=== PATIENT | male | born 1965 | race Caucasian/White ===

== ENCOUNTER → 2016-10-30 | Outpatient (CLI) | payer OTHER ==
[2016-10-30 19:21] LABS: ANION GAP 8 MEQ/L (8-16); BLOOD UREA NITROGEN 14 MG/DL (7-18); CALCIUM LEVEL 9.2 MG/DL (8.5-10.1); CARBON DIOXIDE LEVEL 30 MEQ/L (21-32); CHLORIDE LEVEL 105 MEQ/L (98-107); CHOLESTEROL LEVEL 131 MG/DL (<200); CREATININE FOR GFR 0.92 MG/DL (0.70-1.30); GLOMERULAR FILTRATION RATE > 60.0 (>60); GLUCOSE, FASTING 80 MG/DL (70-105); POTASSIUM SERUM 4.4 MEQ/L (3.5-5.1); SODIUM LEVEL 143 MEQ/L (136-145); TRIGLYCERIDES LEVEL 55 MG/DL (<150)
[2016-10-30 19:34] LABS: VITAMIN B12 LEVEL 1040 PG/ML (247-911)
== END ==
LOC: M WUC 10:53
PROVIDERS: ATTEND Nurse Practitioner Family
DX: E78.00 Pure hypercholesterolemia, unspecified (principal); E55.9 Vitamin D deficiency, unspecified

== ENCOUNTER → 2017-02-27 | Outpatient (CLI) | payer OTHER ==
--- NOTE | 2017-02-27 09:40 | REP ---
CHEST X-RAY: Two views. HISTORY: Asthma. COMPARISON STUDY: January 02, 2016. FINDINGS: The lungs are symmetrically aerated and free of infiltrate. Pleural angles are sharp. Heart size is normal. Pulmonary vasculature is not increased. There has been some interval bony erosion of the distal clavicle on the right with resultant widening of the apparent AC joint. This is compatible with post-traumatic osteolysis. No other significant bony finding. IMPRESSION: No active cardiopulmonary disease. 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 Signed by Saul Faust MD 02/27/2017 01:18 P
--- NOTE | 2017-02-28 13:51 | ECGEPIP ---
Stationary ECG Study [facility] Test Date: 2017-02-27 Pat Name: CARLITOS WELCH Department: Room: - Gender: M Bordereau Clerk: SUE : 1965 Requested By: Emperatriz MARITNEZP Order Number: [id number] Reading MD: Art Valero Measurements Intervals Driggs Rate: 53 P: 0 ND: 184 QRS: -5 QRSD: 131 T: 29 QT: 405 QTc: 384 Interpretive Statements SINUS BRADYCARDIA INTRAVENTRICULAR CONDUCTION DELAY Comparison tracing not on file Electronically Signed On 02-28-2017 13:51:25 EDT by Art Valero
== END ==
LOC: M LAB 08:18
PROVIDERS: ATTEND Nurse Practitioner Family
DX: J45.909 Unspecified asthma, uncomplicated (principal); I21.3 ST elevation (STEMI) myocardial infarction of unspecified site; E55.9 Vitamin D deficiency, unspecified

== ENCOUNTER → 2017-03-30 | Outpatient (CLI) | payer OTHER ==
[~2017-03-30] VITALS: Ht 180.3 cm; Wt 87.1 kg
[~2017-03-30] MED LIST: ALBU17IN INH; ASPI1TAB15 PO; BREO1INH3 INH; INSUH10VL SC; LIDOCAINE 2% INJ 100 MG/5 ML SDV (FOR ANES.) As Ordered ONE; LISI2.5T3 PO; METO-346 PO; NS 1,000 ML IV ONE; OMEP40CA2 PO; PROPOFOL 200 MG/20 ML VIAL As Ordered ONE; SIMV40TA2 PO; VITA1CAP40 PO
--- NOTE | 2017-03-30 09:04 | ROOR ---
Patient Name: Clayton Santizo Procedure Date: 03/30/2017 8:52 AM Date of : 1965 Age: 52 Room: [facility] Gender: Male Note Status: Finalized Procedure: Upper GI endoscopy + Biopsies Indications: Heartburn, Exclusion of Samson's esophagus Providers: Javon Dixon MD Referring MD: Emperatriz COBURN NP Requesting Provider: Medicines: Monitored Anesthesia Care Complications: No immediate complications. Procedure: Pre-Anesthesia Assessment: - The heart rate, respiratory rate, oxygen saturations, blood pressure, adequacy of pulmonary ventilation, and response to care were monitored throughout the procedure. The Endoscope was introduced through the mouth, and advanced to the second part of duodenum. The upper GI endoscopy was accomplished without difficulty. The patient tolerated the procedure well. Findings: The Z-line was irregular and was found 40 cm from the incisors. Multiple biopsies were obtained with cold forceps for evaluation to rule out Samson's Esophagus randomly at the gastroesophageal junction. No other significant abnormalities were identified in a careful examination of the stomach. The exam of the duodenum was otherwise normal. Impression: - Z-line irregular, 40 cm from the incisors. - Multiple biopsies were obtained at the gastroesophageal junction. Recommendation: - Patient has a contact number available for emergencies. The signs and symptoms of potential delayed complications were discussed with the patient. Return to normal activities tomorrow. Written discharge instructions were provided to the patient. - Discharge patient to home. - Follow an antireflux regimen. - Continue present medications. - Await pathology results. - Telephone GI clinic for pathology results in 1 week. - Return to referring physician. - Check Portal Online for Path Results.([email or web address] - The findings and recommendations were discussed with the patient's family. Javon Dixon MD Javon Dixon MD 03/30/2017 9:04:16 AM This report has been signed electronically. Number of Addenda: 0 Note Initiated On: 03/30/2017 8:52 AM Estimated Blood Loss: Estimated blood loss: none.
--- NOTE | 2017-03-30 09:23 | ROOR ---
Patient Name: Clayton Santizo Procedure Date: 03/30/2017 8:53 AM Date of : 1965 Age: 52 Room: [facility] Gender: Male Note Status: Finalized Procedure: Total Colonoscopy to Cecum Indications: Screening for colorectal malignant neoplasm, Last colonoscopy 10 years ago Providers: Javon Dixon MD Referring MD: Emperatriz COBURN NP Requesting Provider: Medicines: Monitored Anesthesia Care Complications: No immediate complications. Procedure: Pre-Anesthesia Assessment: - The heart rate, respiratory rate, oxygen saturations, blood pressure, adequacy of pulmonary ventilation, and response to care were monitored throughout the procedure. The Colonoscope was introduced through the anus and advanced to the cecum, identified by appendiceal orifice and ileocecal valve. The colonoscopy was performed without difficulty. The patient tolerated the procedure well. The quality of the bowel preparation was fair. Findings: The perianal and digital rectal examinations were normal. Non-bleeding internal hemorrhoids were found during retroflexion. The hemorrhoids were small and Grade I (internal hemorrhoids that do not prolapse). No other significant abnormalities were identified in a careful examination of the remainder of the colon. The exam was otherwise without abnormality on direct and retroflexion views. Impression: - Preparation of the colon was fair. - Non-bleeding internal hemorrhoids. - The examination was otherwise normal on direct and retroflexion views. - No specimens collected. - The exam was otherwise normal to the cecum. Recommendation: - Patient has a contact number available for emergencies. The signs and symptoms of potential delayed complications were discussed with the patient. Return to normal activities tomorrow. Written discharge instructions were provided to the patient. - High fiber diet. - Discharge patient to home. - Continue present medications. - Repeat colonoscopy in 10 years for screening purposes. - Return to referring physician. - The findings and recommendations were discussed with the patient's family. Javon Dixon MD Javon Dixon MD 03/30/2017 9:22:33 AM This report has been signed electronically. Number of Addenda: 0 Note Initiated On: 03/30/2017 8:53 AM Estimated Blood Loss: Estimated blood loss: none.
[2017-03-30 09:50] VITALS: BP 104/63
== END | disposition home or self-care (01) ==
LOC: M OPP 07:36
PROVIDERS: ATTEND Internal Medicine Gastroenterology
DX: Z12.11 Encounter for screening for malignant neoplasm of colon (principal); K64.0 First degree hemorrhoids; R12 Heartburn; K22.8 Other specified diseases of esophagus; I10 Essential (primary) hypertension; E78.00 Pure hypercholesterolemia, unspecified; E10.9 Type 1 diabetes mellitus without complications; Z87.891 Personal history of nicotine dependence; Z79.899 Other long term (current) drug therapy; Z79.82 Long term (current) use of aspirin; Z88.0 Allergy status to penicillin

== ENCOUNTER → 2017-09-08 | Outpatient (CLI) | payer OTHER ==
[~2017-09-08] MED LIST changes: -LIDOCAINE 2% INJ 100 MG/5 ML SDV (FOR ANES.) As Ordered ONE; -NS 1,000 ML IV ONE; -PROPOFOL 200 MG/20 ML VIAL As Ordered ONE
[2017-09-08 12:01] LABS: ESTRADIOL 76.3 PG/ML (<39.8)
== END ==
LOC: M LAB 10:47
PROVIDERS: ATTEND Nurse Practitioner Family
DX: E34.9 Endocrine disorder, unspecified (principal)

== ENCOUNTER → 2017-12-07 | Outpatient (CLI) | payer OTHER | LOC: M WUC 08:41 | DX: R06.02 Shortness of breath (principal); M54.9 Dorsalgia, unspecified | CPT/HCPCS: 71046 ==

== ENCOUNTER → 2018-01-21 | Outpatient (CLI) | payer OTHER, MEDICAID ==
[2018-01-21 20:15] LABS: ESTRADIOL 104.9 PG/ML (<39.8)
[2018-01-21 20:15] LABS: TESTOSTERONE 48 NG/DL (241-827)
== END ==
LOC: M WUC 17:06
DX: E34.9 Endocrine disorder, unspecified (principal)
CPT/HCPCS: 84403

== ENCOUNTER → 2018-01-21 | Outpatient (CLI) | payer OTHER, MEDICAID ==
[2018-01-21 08:43] LABS: ALBUMIN 3.5 GM/DL (3.2-5.2); ALBUMIN/GLOBULIN RATIO 1.35 (1.00-1.93); ALKALINE PHOSPHATASE 65 U/L (45-117); ALT/SGPT 28 U/L (12-78); ANION GAP 6 MEQ/L (8-16); AST/SGOT 16 U/L (7-37); BILIRUBIN,TOTAL 0.5 MG/DL (0.2-1.0); BLOOD UREA NITROGEN 15 MG/DL (7-18); CALCIUM LEVEL 8.1 MG/DL (8.5-10.1); CARBON DIOXIDE LEVEL 27 MEQ/L (21-32); CHLORIDE LEVEL 109 MEQ/L (98-107); CREATININE FOR GFR 0.93 MG/DL (0.70-1.30); GLOMERULAR FILTRATION RATE > 60.0 (>56); GLUCOSE, FASTING 228 MG/DL (70-100); POTASSIUM SERUM 4.7 MEQ/L (3.5-5.1); SODIUM LEVEL 142 MEQ/L (136-145); TOTAL PROTEIN 6.1 GM/DL (6.4-8.2)
[2018-01-21 08:44] LABS: MALB URINE SIEMENS 6.3 MG/L; MAU/CREAT RATIO 4.7 MCG/MG (0.0-30.0)
[2018-01-21 09:50] LABS: TOTAL 25(OH) VITAMIN D 21.6 NG/ML (30.0-100.0)
[2018-01-21 10:02] LABS: ESTIMATED AVERAGE GLUCOSE 194 MG/DL (60-110); HEMOGLOBIN A1c 8.4 %
== END ==
LOC: M LAB 07:24
DX: E10.9 Type 1 diabetes mellitus without complications (principal); E23.0 Hypopituitarism; E55.9 Vitamin D deficiency, unspecified
CPT/HCPCS: 84443

== ENCOUNTER → 2018-02-08 | Outpatient (CLI) | payer OTHER, MEDICAID | LOC: M WUC 09:20 | DX: S20.219A Contusion of unspecified front wall of thorax, initial encounter (principal); X58.XXXA Exposure to other specified factors, initial encounter; Y92.89 Other specified places as the place of occurrence of the external cause; Y99.9 Unspecified external cause status; Y93.9 Activity, unspecified | CPT/HCPCS: 71046 ==

== ENCOUNTER → 2018-06-24 | Outpatient (CLI) | payer OTHER, MEDICAID ==
[2018-06-24 11:03] LABS: ESTRADIOL 104.5 PG/ML (<39.8)
[2018-06-24 11:03] LABS: TESTOSTERONE 648 NG/DL (241-827)
== END ==
LOC: M WUC 08:53
DX: E34.9 Endocrine disorder, unspecified (principal)
CPT/HCPCS: 84403

== ENCOUNTER → 2018-08-18 | Outpatient (CLI) | payer OTHER, MEDICAID ==
[2018-08-18 08:59] LABS: CHOLESTEROL LEVEL 141 MG/DL (<200); HDL CHOLESTEROL 60 MG/DL (>40); LDL CHOLESTEROL 68 MG/DL (<100); NON-HDL-C 81 MG/DL; TRIGLYCERIDES LEVEL 65 MG/DL (<150)
== END ==
LOC: M LAB 08:08
DX: E78.00 Pure hypercholesterolemia, unspecified (principal); R78.5 Finding of other psychotropic drug in blood
CPT/HCPCS: 80061

== ENCOUNTER → 2018-11-23 | Outpatient (CLI) | payer OTHER ==
[~2018-11-23] MED LIST changes: -LISI2.5T3 PO; +LISI2.5T5 PO; -VITA1CAP40 PO; +VITA50005 PO
[2018-11-23 19:01] LABS: ESTRADIOL 84.2 PG/ML (<39.8)
== END ==
LOC: M WUC 16:54
PROVIDERS: ATTEND Registered Nurse
DX: Z51.81 Encounter for therapeutic drug level monitoring (principal)

== ENCOUNTER → 2018-11-24 | Outpatient (REF) | payer OTHER | LOC: M LAB REF 17:30 | PROVIDERS: ATTEND Registered Nurse | DX: Z51.81 Encounter for therapeutic drug level monitoring (principal) ==

== ENCOUNTER → 2019-01-12 | Outpatient (REF) | payer OTHER, MEDICAID ==
[~2019-01-12] MED LIST changes: +LISI-1046 PO; -LISI2.5T5 PO
[2019-01-12 17:26] LABS: ALBUMIN 3.8 GM/DL (3.2-5.2); ALT/SGPT 24 U/L (12-78); BILIRUBIN,TOTAL 0.4 MG/DL (0.2-1.0); BLOOD UREA NITROGEN 13 MG/DL (7-18); CALCIUM LEVEL 8.6 MG/DL (8.5-10.1); CARBON DIOXIDE LEVEL 30 MEQ/L (21-32); CHLORIDE LEVEL 105 MEQ/L (98-107); CREATININE FOR GFR 0.94 MG/DL (0.70-1.30); GLOMERULAR FILTRATION RATE > 60.0 (>56); GLUCOSE, FASTING 218 MG/DL (70-100); POTASSIUM SERUM 4.6 MEQ/L (3.5-5.1); SODIUM LEVEL 137 MEQ/L (136-145); TOTAL PROTEIN 6.7 GM/DL (6.4-8.2)
== END ==
LOC: M LAB REF 16:50
PROVIDERS: ATTEND Nurse Practitioner Adult Health
DX: Z13.9 Encounter for screening, unspecified (principal)

== ENCOUNTER → 2019-01-20 | Outpatient (CLI) | payer OTHER, MEDICAID ==
[2019-01-20 13:29] LABS: ALBUMIN 3.7 GM/DL (3.2-5.2); ALT/SGPT 23 U/L (12-78); BILIRUBIN,DIRECT 0.1 MG/DL (0.0-0.2); BILIRUBIN,TOTAL 0.4 MG/DL (0.2-1.0); BLOOD UREA NITROGEN 18 MG/DL (7-18); CALCIUM LEVEL 8.5 MG/DL (8.5-10.1); CARBON DIOXIDE LEVEL 26 MEQ/L (21-32); CHLORIDE LEVEL 108 MEQ/L (98-107); CHOLESTEROL LEVEL 122 MG/DL (<200); CHOLESTEROL RISK RATIO 1.936 (<5); CREATININE FOR GFR 0.95 MG/DL (0.70-1.30); GLOMERULAR FILTRATION RATE > 60.0 (>56); GLUCOSE, FASTING 297 MG/DL (70-100); HDL CHOLESTEROL 63 MG/DL (>40); LDL CHOLESTEROL 47 MG/DL (<100); NON-HDL-C 59 MG/DL; POTASSIUM SERUM 5.1 MEQ/L (3.5-5.1); SODIUM LEVEL 140 MEQ/L (136-145); TOTAL PROTEIN 6.3 GM/DL (6.4-8.2); TRIGLYCERIDES LEVEL 61 MG/DL (<150)
[2019-01-20 13:39] LABS: ESTRADIOL 218.1 PG/ML (<39.8); TESTOSTERONE 284 NG/DL (241-827)
[2019-01-20 14:10] LABS: HEMOGLOBIN A1c 8.8 %
== END ==
LOC: M WUC 08:53
PROVIDERS: ATTEND Nurse Practitioner Adult Health
DX: E34.9 Endocrine disorder, unspecified (principal)

== ENCOUNTER → 2019-05-18 | Outpatient (CLI) | payer OTHER, MEDICAID ==
[2019-05-18 12:51] LABS: HEMATOCRIT 41.3 % (42.0-52.0); HEMOGLOBIN 13.8 g/dl (13.5-17.5); MEAN CORPUSCULAR HEMOGLOBIN 31.6 pg (27.0-33.0); MEAN CORPUSCULAR HGB CONC 33.4 g/dl (32.0-36.5); MEAN CORPUSCULAR VOLUME 94.5 fl (80.0-96.0); PLATELET COUNT, AUTOMATED 215 10^3/uL (150-450); RED BLOOD COUNT 4.37 10^6/uL (4.30-6.10); WHITE BLOOD COUNT 6.5 10^3/uL (4.0-10.0)
[2019-05-18 13:01] LABS: ALBUMIN 3.4 GM/DL (3.2-5.2); ALT/SGPT 21 U/L (12-78); BILIRUBIN,DIRECT 0.2 MG/DL (0.0-0.2); BILIRUBIN,TOTAL 0.4 MG/DL (0.2-1.0); BLOOD UREA NITROGEN 14 MG/DL (7-18); CARBON DIOXIDE LEVEL 29 MEQ/L (21-32); CHLORIDE LEVEL 108 MEQ/L (98-107); CHOLESTEROL LEVEL 130 MG/DL (<200); CHOLESTEROL RISK RATIO 2.166 (<5); CREATININE FOR GFR 0.89 MG/DL (0.70-1.30); GLOMERULAR FILTRATION RATE > 60.0 (>56); GLUCOSE, FASTING 139 MG/DL (70-100); HDL CHOLESTEROL 60 MG/DL (>40); LDL CHOLESTEROL 58 MG/DL (<100); NON-HDL-C 70 MG/DL; POTASSIUM SERUM 4.6 MEQ/L (3.5-5.1); SODIUM LEVEL 141 MEQ/L (136-145); TOTAL PROTEIN 6.2 GM/DL (6.4-8.2); TRIGLYCERIDES LEVEL 62 MG/DL (<150)
[2019-05-18 13:07] LABS: TESTOSTERONE 160 NG/DL (241-827)
[2019-05-18 13:08] LABS: ESTRADIOL 494.1 PG/ML (<39.8); PROLACTIN 9.6 NG/ML (2.1-17.7)
== END ==
LOC: M WUC 08:57
DX: F64.0 Transsexualism (principal); E34.9 Endocrine disorder, unspecified

== ENCOUNTER → 2019-09-19 | Outpatient (CLI) | payer OTHER, MEDICAID ==
[~2019-09-19] MED LIST changes: -OMEP40CA2 PO; +OMEP40CA97 PO; -SIMV40TA2 PO; +SIMV40TA20 PO
[2019-09-19 13:52] LABS: ALBUMIN 3.5 GM/DL (3.2-5.2); ALT/SGPT 20 U/L (12-78); BILIRUBIN,DIRECT 0.2 MG/DL (0.0-0.2); BILIRUBIN,TOTAL 0.7 MG/DL (0.2-1.0); BLOOD UREA NITROGEN 18 MG/DL (7-18); CALCIUM LEVEL 8.9 MG/DL (8.5-10.1); CARBON DIOXIDE LEVEL 30 MEQ/L (21-32); CHLORIDE LEVEL 106 MEQ/L (98-107); CREATININE FOR GFR 0.86 MG/DL (0.70-1.30); GLOMERULAR FILTRATION RATE > 60.0 (>56); GLUCOSE, FASTING 126 MG/DL (70-100); POTASSIUM SERUM 4.7 MEQ/L (3.5-5.1); SODIUM LEVEL 141 MEQ/L (136-145); TOTAL PROTEIN 6.8 GM/DL (6.4-8.2)
[2019-09-19 14:14] LABS: ESTRADIOL 79.8 PG/ML (<39.8)
[2019-09-19 14:30] LABS: TESTOSTERONE 320 NG/DL (241-827)
== END ==
LOC: M WUC 09:13
PROVIDERS: ATTEND Nurse Practitioner Adult Health
DX: E34.9 Endocrine disorder, unspecified (principal); F64.0 Transsexualism

== ENCOUNTER → 2019-11-25 | Outpatient (CLI) | payer OTHER ==
[2019-11-25 08:44] LABS: ALBUMIN 2.9 GM/DL (3.2-5.2); ALT/SGPT 29 U/L (12-78); BILIRUBIN,DIRECT < 0.1 MG/DL (0.0-0.2); BILIRUBIN,TOTAL 0.3 MG/DL (0.2-1.0); TOTAL PROTEIN 5.8 GM/DL (6.4-8.2)
[2019-11-25 09:36] LABS: ESTRADIOL 958.1 PG/ML (<39.8); TESTOSTERONE 218 NG/DL (241-827)
== END ==
LOC: M LAB 07:24
PROVIDERS: ATTEND Nurse Practitioner Adult Health
DX: E34.9 Endocrine disorder, unspecified (principal); F64.0 Transsexualism

== ENCOUNTER → 2020-01-18 | Outpatient (REF) | payer OTHER, MEDICAID ==
[2020-01-18 19:09] LABS: ALBUMIN 3.1 GM/DL (3.2-5.2); ALT/SGPT 32 U/L (12-78); BILIRUBIN,TOTAL 0.4 MG/DL (0.2-1.0); BLOOD UREA NITROGEN 15 MG/DL (7-18); CALCIUM LEVEL 8.9 MG/DL (8.5-10.1); CARBON DIOXIDE LEVEL 25 MEQ/L (21-32); CHLORIDE LEVEL 108 MEQ/L (98-107); CHOLESTEROL LEVEL 110 MG/DL (<200); CHOLESTEROL RISK RATIO 2.156 (<5); CREATININE FOR GFR 0.59 MG/DL (0.70-1.30); GLOMERULAR FILTRATION RATE > 60.0 (>56); GLUCOSE, FASTING 179 MG/DL (70-100); HDL CHOLESTEROL 51 MG/DL (>40); LDL CHOLESTEROL 48 MG/DL (<100); NON-HDL-C 59 MG/DL; POTASSIUM SERUM 4.6 MEQ/L (3.5-5.1); SODIUM LEVEL 137 MEQ/L (136-145); THYROID STIMULATING HORMONE < 0.005 uIU/ML (0.358-3.740); TRIGLYCERIDES LEVEL 53 MG/DL (<150)
== END ==
LOC: M LAB REF 17:08
PROVIDERS: ATTEND Nurse Practitioner Adult Health
DX: E23.0 Hypopituitarism (principal); E10.9 Type 1 diabetes mellitus without complications; E78.5 Hyperlipidemia, unspecified; Z12.5 Encounter for screening for malignant neoplasm of prostate

== ENCOUNTER → 2020-01-28 | Outpatient (CLI) | payer OTHER, MEDICAID ==
[~2020-01-28] MED LIST changes: -LISI-1046 PO; +LISI2.5T2 PO
[2020-01-30 10:55] LABS: ESTRADIOL 1302.2 PG/ML (<39.8)
== END ==
LOC: M WUC 08:33
PROVIDERS: ATTEND Nurse Practitioner Adult Health
DX: E34.9 Endocrine disorder, unspecified (principal); F64.0 Transsexualism

== ENCOUNTER → 2020-01-31 | Outpatient (CLI) | payer OTHER, MEDICAID ==
[~2020-01-31] MED LIST changes: +ADME100I SC; +ASPI-546 PO; -ASPI1TAB15 PO; +METO1TAB32 PO; +SYNT137T7 PO; +VENTAER INH
[2020-01-31 18:35] LABS: FREE T4 2.83 NG/DL (0.76-1.46); THYROID STIMULATING HORMONE < 0.005 uIU/ML (0.358-3.740)
[2020-01-31 18:36] LABS: TOTAL T3 241.6 NG/DL (60.0-181.0)
[2020-02-01 09:38] LABS: THYROID PEROXIDASE ANTIBODY 86.5 U/ML (<60.0)
== END ==
LOC: M LAB 16:53
PROVIDERS: ATTEND Nurse Practitioner Family
DX: E05.00 Thyrotoxicosis with diffuse goiter without thyrotoxic crisis or storm (principal)

== ENCOUNTER → 2020-02-18 | Outpatient (CLI) | payer OTHER, MEDICAID ==
[~2020-02-18] MED LIST changes: -ADME100I SC; -ASPI-546 PO; +ASPI1TAB15 PO; -METO1TAB32 PO; -SYNT137T7 PO; -VENTAER INH
[2020-02-20 10:48] LABS: ESTRADIOL 84.4 PG/ML (<39.8)
== END ==
LOC: M WUC 09:10
PROVIDERS: ATTEND Registered Nurse
DX: F64.0 Transsexualism (principal)

== ENCOUNTER → 2020-03-14 | Outpatient (CLI) | payer OTHER ==
--- NOTE | 2020-03-15 12:40 | REP ---
RADIONUCLIDE THYROID UPTAKE AND SCAN: HISTORY: Thyrotoxicosis. TECHNIQUE: 434.0 microcuries of I 123 sodium iodine is ingested and 24-hour uptake values acquired along with functional images. RESULTS: The 24-hour uptake value is in the normal range of 32.5% (25-35%). Functional images demonstrate homogeneous uptake in the thyroid lobes bilaterally. The thyroid lobes are asymmetric with the right being larger than left. No cold or warm lesion is seen however. IMPRESSION: Asymmetric size thyroid lobes. No cold or warm lesion seen. Thyroid uptake 32.5%. Electronically Signed by Saul Faust MD 03/15/2020 12:58 P
== END ==
LOC: M RAD 10:07
PROVIDERS: ATTEND Nurse Practitioner Family
DX: E05.00 Thyrotoxicosis with diffuse goiter without thyrotoxic crisis or storm (principal)
CPT/HCPCS: 78012; A9516

== ENCOUNTER → 2020-03-19 | Outpatient (CLI) | payer OTHER | LOC: M PLALAB 14:14 | PROVIDERS: ATTEND Internal Medicine Endocrinology, Diabetes & Metabolism | DX: E05.00 Thyrotoxicosis with diffuse goiter without thyrotoxic crisis or storm (principal) ==

== ENCOUNTER → 2020-03-28 | Outpatient (CLI) | payer OTHER ==
[~2020-03-28] MED LIST changes: +ASPI-546 PO; -ASPI1TAB15 PO
[2020-03-30 20:14] LABS: TESTOSTERONE FREE (DIRECT) 3.4 pg/mL (7.2-24.0)
== END ==
LOC: M WUC 14:30
PROVIDERS: ATTEND Registered Nurse
DX: F64.0 Transsexualism (principal)

== ENCOUNTER → 2020-04-10 | Outpatient (CLI) | payer OTHER | LOC: M RAD 13:06 | PROVIDERS: ATTEND Internal Medicine Endocrinology, Diabetes & Metabolism | DX: E05.00 Thyrotoxicosis with diffuse goiter without thyrotoxic crisis or storm (principal) | CPT/HCPCS: 79005; A9517 ==

== ENCOUNTER → 2020-06-05 | Outpatient (CLI) | payer OTHER ==
[2020-06-05 08:59] LABS: FREE T4 0.63 NG/DL (0.76-1.46); THYROID STIMULATING HORMONE 0.011 uIU/ML (0.358-3.740)
== END ==
LOC: M LAB 07:35
PROVIDERS: ATTEND Internal Medicine Endocrinology, Diabetes & Metabolism
DX: E05.00 Thyrotoxicosis with diffuse goiter without thyrotoxic crisis or storm (principal)

== ENCOUNTER → 2020-06-20 | Outpatient (CLI) | payer OTHER ==
[2020-06-20 18:25] LABS: FREE T4 0.31 NG/DL (0.76-1.46)
[2020-06-20 18:27] LABS: PROLACTIN 13.3 NG/ML (2.1-17.7)
== END ==
LOC: M PLALAB 14:38
PROVIDERS: ATTEND Internal Medicine Endocrinology, Diabetes & Metabolism
DX: E05.00 Thyrotoxicosis with diffuse goiter without thyrotoxic crisis or storm (principal); F64.9 Gender identity disorder, unspecified

== ENCOUNTER → 2020-07-19 | Outpatient (CLI) | payer OTHER ==
[2020-07-19 16:08] LABS: BLOOD UREA NITROGEN 15 MG/DL (7-18); CALCIUM LEVEL 9.5 MG/DL (8.5-10.1); CARBON DIOXIDE LEVEL 28 MEQ/L (21-32); CHLORIDE LEVEL 103 MEQ/L (98-107); CREATININE FOR GFR 0.93 MG/DL (0.70-1.30); GLOMERULAR FILTRATION RATE > 60.0 (>56); GLUCOSE, FASTING 119 MG/DL (70-100); POTASSIUM SERUM 4.6 MEQ/L (3.5-5.1); SODIUM LEVEL 137 MEQ/L (136-145)
[2020-07-19 16:19] LABS: ESTRADIOL 120.9 PG/ML (<39.8)
[2020-07-21 18:12] LABS: TESTOSTERONE FREE (DIRECT) 7.5 pg/mL (7.2-24.0)
== END ==
LOC: M WUC 10:29
DX: F64.0 Transsexualism (principal)

== ENCOUNTER → 2020-09-24 | Outpatient (CLI) | payer OTHER ==
[2020-09-24 17:41] LABS: BLOOD UREA NITROGEN 17 MG/DL (7-18); CALCIUM LEVEL 8.6 MG/DL (8.5-10.1); CARBON DIOXIDE LEVEL 28 MEQ/L (21-32); CHLORIDE LEVEL 104 MEQ/L (98-107); CREATININE FOR GFR 0.96 MG/DL (0.70-1.30); FREE T4 1.26 NG/DL (0.76-1.46); GLOMERULAR FILTRATION RATE > 60.0 (>56); GLUCOSE, FASTING 246 MG/DL (70-100); POTASSIUM SERUM 4.3 MEQ/L (3.5-5.1); SODIUM LEVEL 137 MEQ/L (136-145)
[2020-09-24 17:42] LABS: FOLLICLE STIMULATING HORMONE 0.8 mIU/mL (1.4-18.1); LUTEINIZING HORMONE 0.1 mIU/mL (1.5-9.3); TESTOSTERONE 15 NG/DL (241-827)
== END ==
LOC: M PLALAB 14:39
PROVIDERS: ATTEND Internal Medicine Endocrinology, Diabetes & Metabolism
DX: E10.65 Type 1 diabetes mellitus with hyperglycemia (principal); F64.9 Gender identity disorder, unspecified

== ENCOUNTER → 2020-10-31 | Outpatient (CLI) | payer OTHER ==
[~2020-10-31] MED LIST changes: +ADME100I SC; +METO1TAB32 PO; +SYNT137T7 PO; +VENTAER INH
== END ==
LOC: M LABSMTC 12:13
PROVIDERS: ATTEND Anesthesiology
DX: Z20.828 Contact with and (suspected) exposure to other viral communicable diseases (principal)

== ENCOUNTER 2020-11-05 07:58 | Day surgery (SDC) | payer OTHER ==
[~2020-11-05] VITALS: Ht 180.3 cm; Wt 98.9 kg
[~2020-11-05 07:58] MED LIST changes: +NS 1,000 ML IV ONE
--- OUTSIDE RECORDS SUMMARY | 2020-11-05 08:03 | CCD | Continuity of Care Document ---
Author Author [facility] Organization [facility] Address Unknown Phone Unavailable Care Team Providers Care [facility] Director Name Role Phone Angelic Yost MD Unavailable Unavailable Allergies, Adverse Reactions, Alerts Substance Reaction Status Criticality Penicillins Active No Information Medications Medication Instructions Dosage Effective Dates (start - stop) Sta tus Comments estradiol 2 mg tablet take 0.5 tablet by oral route every day - Active Lupron Depot 3.75 mg intramuscular syringe kit inject (3.75MG) by intramuscular route every month 3.75 MG - Active Tirosint 137 mcg capsule take 1 capsule by oral route every day 13 7 MCG - Active Aspirin Low Dose 81 mg tablet,delayed release take 1 t ablet by oral route every day 81 MG - Active lisinopril 10 mg tablet take 1 tablet by oral route every day 10 MG - Active metoprolol succinate ER 25 mg tablet,extended release 24 hr take 1 tablet by oral route every day 25 MG - Active Novolog Mix 70-30 U-100 Insulin 100 unit/mL subcutaneo us solution inject by subcutaneous route as per insulin protocol 0.00 - Activ e omeprazole 10 mg capsule,delayed release take 2 capsul e by oral route every day before a meal 20 MG - Active simvastatin 10 mg tablet take 1 tablet by oral route every day in the evening 10 MG - Active Ventolin HFA 90 mcg/actuation aerosol inhaler inhale 2 puff by inhalation route every 4 - 6 hours as needed - Active Problems Condition Effective Dates (start - stop) Clinical Status C omments Body mass index (BMI) 29.0-29.9, adult - Body mass index (BMI) 29.0-29.9, adult - Gender identity disorder, unspecified Gender Identity Disorder - Gender Identity Disorder Human immunodeficiency virus [HIV] counseling Encounter for oth general cnsl and advice on contraception Gender Identity Disorder Encounter for oth general cnsl and advice on contraception Gender Identity Disorder [place] Endocrine disorder, unspecified Transsexualism Encounter for oth general cnsl and advice on contraception Human immunodeficiency virus [HIV] counseling Human immunodeficiency virus [HIV] counseling Endocrine disorder, unspecified Transsexualism Encounter for oth general cnsl and advice on contraception Human immunodeficiency virus [HIV] counseling Endocrine disorder, unspecified Transsexualism Encounter for oth general cnsl and advice on contraception Human immunodeficiency virus [HIV] counseling Endocrine disorder, unspecified Transsexualism Encounter for oth general cnsl and advice on contraception Endocrine disorder, unspecified Transsexualism Endocrine disorder, unspecified Transsexualism Other sex counseling Hyperlipidemia - Active Disorder of thyroid gland - Active Type 2 diabetes mellitus - Active Procedures Procedure Date No Information Results Test Name Date and Time Measure Units Reference Range Abnormal Flag St atus Comments No Information Advance Directives Directive Yes / No Effective Date File Name No Information Encounters Encounter Description Practice Location Reason(s) For Visit Diagnose s Date Provider Providers Copied on Encounter [facility], [address] [place] [address], [id number], tel:[phone] TANI [place] No Information Doreen Atwood. [address] [place] [address], [id number], . tel:[phone] [facility] [place], [address] [place] [address], [id number], [place] tel:[phone] TANI [place] Gender identity dis order, unspecified Prudence Kendall. [address] [place] [address], [id number], . tel:[phone] Referring Provider: Faiza Foss, [address] [place], [place], [id number]. tel:[phone] [facility], [address], [place], [id number], [place] tel:[phone] TANI [place]im[place] Gender Identity Disorder O Prudence Kendall. [address] [place], [place], [id number], [place]. tel:[phone] Referring Provider: Faiza Foss, [address] [place], [place], [id number]. tel:[phone] [facility] [place], [address], [place], [id number], [place] tel:[phone] TANI [place] Gender Identity Dis orderHuman immunodeficiency virus [HIV] counselingEncounter for oth general cnsl and advice on contraception Anna Asher. [address], [place], [id number], [place]. tel:[phone] Referring Provider: Lakeshia Castillo, [address] [place] [address], [id number]. tel:[phone] [facility] [place], [address], [place], [id number], [place] tel:[phone] TANI [place] Gender Identity Dis orderEncounter for oth general cnsl and advice on contraception Anna march. [address], [place], [id number], [place]. tel:[phone] Referring Provider: Lakeshia Castillo, [address], [place], [id number]. tel:[phone] [facility] [place], [address], [place], [id number], [place] tel:[phone] TANI [place] Gender Identity Disorder [place] Anna Asher. [address] [facility], [place], [id number], [place]. tel:[phone] Referring Provider: Lakeshia Castillo, [address] [place], [place], [id number]. tel:[phone] [facility] [place], [address] [facility], [place], [place], [id number], [place] tel:[phone] [facility] [place] Endocrine disorder, unspecifiedTranssexualismEncounter for oth general cnsl and advice on contraceptionHuman immunodeficiency virus [HIV] counseling Jeffdm Gee. [address] [place], [place], [id number], [place]. tel:[phone] Referring Provider: Marlen Hoffman, [address] [place] [address], [id number]. tel:[phone] [facility], [address] [place] [address], [id number], [place] tel:[phone] [facility] [place] Human immunodeficie ncy virus [HIV] counselingEndocrine disorder, unspecifiedTranssexualismEncounter for oth general cnsl and advice on contraception Jeffdm Gee. [address] [place], [place], [id number], [place]. tel:[phone] Referring Provider: Marlen Hoffman, [address] [place] [address], [id number]. tel:[phone] [facility], [address] [place] [address], [id number], [place] tel:[phone] [facility] [place] Human immunodeficie ncy virus [HIV] counselingEndocrine disorder, unspecifiedTranssexualismEncounter for oth general cnsl and advice on contraception Jeffdm Gee. [address] [place], [place], [id number], [place]. tel:[phone] Referring Provider: Marlen Hoffman, [address] [place] [address], [id number]. tel:[phone] [facility], [address] [place] [address], [id number], [place] tel:[phone] [facility] [place] Human immunodeficie ncy virus [HIV] counselingEndocrine disorder, unspecifiedTranssexualismEncounter for oth general cnsl and advice on contraception Jeffdm Gee. [address] [place], [place], [id number], . tel:[phone] Referring Provider: Marlen Hoffman, [address] [place] [address], [id number]. tel:[phone] [facility], [address] [place] [address], [id number], tel:[phone] [facility] Endocrine disorder, unspecifiedTranssexualismBody mass index (BMI) 29.0-29.9, adult Jeffdm Gee. [address] [place] [address], [id number], . tel:[phone] Referring Provider: Marlen Mcdonald Vega Hima, [address] [place] [address], [id number]. tel:[phone] [facility], [address] [place] [address], [id number], tel:[phone] [facility] [place] Endocrine disorder, unspecifiedTranssexualismOther sex counselingBody mass index (BMI) 29.0-29.9, adult Jeffdm Gee. [address] [place], [place], [id number], . tel:[phone] Referring Provider: Marlen Hoffman, [address] [place] [address], [address] [place] [address]. tel:[phone] Family History Family Member Diagnosis Age At Onset Mother Spinal 1st degree relative No hx of cancer of breast, colon, endome trium or ovary Maternal grandfather Diabetes mellitus 1st degree relative No hx of coronary heart disease (female <65, male <55) 1st degree relative No hx of venous thromboembolism Immunizations Vaccine Date Status Comments No Information Payers Payer name Insurance type Covered democrat ID Authorization(s ) [facility] CI [id number] Social History Type Description Quantity Date Captured Comments Alcohol Use Details Unknown Caffeine Use Details Unknown Tobacco Use Status No Information Smoking Status Never smoker Sex Male Vital Signs Date / Time: Height Weight BMI Pulse Rate Blood Pressure Temperatu re Respiratory Rate Body Surface Area Head Circumference BMI percentile Pulse Ox In haled Ox No Information Chief Complaint And Reason For Visit No Information Reason For Referral Reason For Referral No Information Plan Of Treatment Date Type Action Status Goal Lifestyle education regarding di et completed Goal Weight-reducing diet education c ompleted Appointment Clayton Santizo) BOOKED History Of Present Illness Encounter Date Complaint History Of Present I llness No Information Functional Status Date Functional Assessment No Information Medications Administered Medication Instructions Dosage Effective Dates (start - stop) Sta tus Comments No Information Instructions Date Instruction Additional Informati on Lifestyle education regarding diet Relat ed to Body mass index (BMI) 29.0-29.9, adult Weight-reducing diet education Related t o Body mass index (BMI) 29.0-29.9, adult Assessments Type Assessment Date No Information Goals Health Concern Goal Type Priority Status Date No Information Medical Equipment Description Device Louann Device Identifier Effective Owen es (start - stop) Status No Information Mental Status Date Cognitive Assessment No Information Health Concerns Observation Date No Information Concern Status Date No Information Physical Examination Exam Findings Details No Information
--- OUTSIDE RECORDS SUMMARY | 2020-11-05 08:03 | CCD | Continuity of Care Document ---
Author Author Clayton TOBAR PA Organization Unknown Address [address] [place] [address] [place] [address] Phone [phone] Care Team Providers Care Bail Bond Agent Name Role Phone [facility] AUTM [phone] [facility] AUTM [phone] Problems Active Problems Provider Date Type 2 diabetes mellitus CAROLINE Daugherty Onset: 11/27/19 18 Social History Type Date Description Comments Sex Unknown ETOH Use Drinks Alcoholic Beverages Rarel y Tobacco Use Start: Unknown End: Unknown Patient is a former smoker quit'15 Smoking Status Reviewed: 10/11/20 Patient is a former smoker qu it'15 Allergies, Adverse Reactions, Alerts Active Allergies Reaction Severity Comments Date Penicillin as a child 11/26/2017 Medications Active Medications SIG Qnty Indications Ordering Provide r Date Novolog Penfill 100U nit/ML Solution Cartridge via pump Unknown Aspir-[address] ever y day Unknown Lisinopril 2.5mg Tablets take one tablet daily in the in the morning Unknown Metoprolol Succinate ER 25mg Tablets ER 24HR Unknown Simvastatin 40mg Tablets qd Unknown Omeprazole 40mg Capsules DR 1 by mouth every day Unknown Levothyroxine Sodium Unknown History Medications Lidocaine 5% Patches 1 patch apply to affected area left chest q12 as needed 30units Edvin Elizabeth JR., M.D. 06/08/2020 - 05/15/2020 Immunizations CPT Code Status Date Vaccine Lot # [id number] Given 11/26/2017 Tdap/Tetanus, Di phth Toxoids/Acellular Pertussis Vac 7Yr Or > [id number] Vital Signs Date Vital Result Comment 10/11/2020 12:06pm BP Systolic 100 mmHg BP Diastolic 64 mmHg Heart Rate 73 /min Respiratory Rate 18 /min O2 % BldC Oximetry 100 % Body Temperature 97.9 F Weight 211.00 lb Height 71 inches 5'11" BMI (Body Mass Index) 29.4 kg/m2 Pain Level 0 06/08/2020 3:54pm BP Systolic 108 mmHg BP Diastolic 68 mmHg Heart Rate 75 /min O2 % BldC Oximetry 96 % Body Temperature 98.7 F Weight 190.00 lb Height 71 inches 5'11" BMI (Body Mass Index) 26.5 kg/m2 Pain Level 8 Results Description No Information Available Procedures Description No Information Available Medical Devices Description No Information Available Encounters Type Date Location Provider Dx Diagnosis Office Visit 06/08/2020 4:20p Main Office CAROLINE Barajas S23.4 1xA Sprain of ribs, initial encounter Office Visit 05/11/2020 12:30p Main Office Angelica Rangel NP S61. 001A Unsp open wound of right thumb w/o damage to nail, init Assessments Date Code Description Provider 06/08/2020 S23.41xA Sprain of ribs, initial encounte r CAROLINE Barajas 05/11/2020 S61.001A Unspecified open wou nd of right thumb without damage to nail, initial encounter Angelica Rangel NP Plan of Treatment No Information Available Functional Status Description No Information Available Mental Status Description No Information Available Referrals Description No Information Available
--- OUTSIDE RECORDS SUMMARY | 2020-11-05 08:03 | CCD | Continuity of Care Document ---
Author Author Clayton SOLOMON DPM Organization Unknown Address [address] [facility], [address] [place] [address] Phone [phone] Care Team Providers Care Risk Management Internship Name Role Phone Charisse Cassidy AUTM [phone] Problems Active Problems Provider Date Bunion Monty Solomon DPM Onset: 10/05/2017 Peripheral vascular disorder due to diabetes mellitus Monty Solomon DPM Onset: 10/05/2017 Hammer toe Monty Solomon DPM Onset: 11/11/2019 Social History Type Date Description Comments Sex Unknown ETOH Use Occasionally consumes alcohol Tobacco Use Start: Unknown End: Unknown Patient is a former smoker quit 2.5 years, smoked 35 years 2PPD Allergies, Adverse Reactions, Alerts Active Allergies Reaction Severity Comments Date Penicillin 09/24/2017 Medications Active Medications SIG Qnty Indications Ordering Provide r Date Ammonium Lactate 12% Cream apply to feet daily 280units Monty Solomon DPM 09/24/2017 Lisinopril 2.5mg Tablets Take One Tablet By Mouth Every Day Unknown Simvastatin 40mg Tablets Take One Tablet By Mouth Every Day Unknown Omeprazole 40mg Capsules DR Take One Capsule By Mouth Every Day Unknown Novolog 100Unit/ML Solution Use as Directed Via Pump Maximum Daily Dose 80 Units Unknown Onetouch Ultra Blue Strips Test Four Times A Day Unknown Ventolin HFA 108(90Base) mcg/Act A erosol Inhale Two Puffs By Mouth Every 6 Hours as Needed Unknown Aspir-Low 81mg Tablets DR Take One Tablet By Mouth Every Day Unknown Metoprolol Tartrate 25mg Tablets Take One Half Tablet By Mouth Every Day Unknown 0 Vitamin D (Ergocalciferol) 01116Ocvc Capsules Take One Capsule By Mouth Once Weekly Unk nown Immunizations Description No Information Available Vital Signs Date Vital Result Comment 11/02/2020 8:48am Height 72 inches 6'0" Weight 216.00 lb BP Systolic 120 mmHg BP Diastolic 60 mmHg Heart Rate 58 /min BMI (Body Mass Index) 29.3 kg/m2 11/04/2019 8:41am Height 72 inches 6'0" Weight 198.00 lb BP Systolic 102 mmHg BP Diastolic 60 mmHg Heart Rate 66 /min BMI (Body Mass Index) 26.9 kg/m2 Results Description No Information Available Procedures Description No Information Available Medical Devices Description No Information Available Encounters Description No Information Available Assessments Description No Information Available Plan of Treatment Future Appointment(s):* 11/04/2021 9:00 am - Monty Solomon DPM at [place] [facility] Functional Status Description No Information Available Mental Status Description No Information Available Referrals Description No Information Available
--- OUTSIDE RECORDS SUMMARY | 2020-11-05 08:03 | CCD | Continuity of Care Document ---
Author Author [facility] Organization [facility] Address [address] [place] [address] Phone Care Team Providers Care Habitat Management Coordinator Name Role Phone Faiza Davalos Unavailable Unavailable Allergies, Adverse Reactions, Alerts Substance Reaction Status Criticality Penicillins Active No Information Medications Medication Instructions Dosage Effective Dates (start - stop) Sta tus Comments Lupron Depot 3.75 mg intramuscular syringe kit [...] mass index (BMI) 29.0-29.9, adult - Gender Identity Disorder - Gender Identity Disorder [...] Provider Providers Copied on Encounter [facility], [address] [place] [address], [id number], tel:[phone] TANI Nava No Information Prudence Faiza. [address], [place], [id number], [place]. tel:[phone] [facility], [address], [place], [id number], [place] tel:[phone] TANI Nava Gender Identity Disorder O Prudence Faiza. [address], [place], [id number], [place]. tel:[phone] Referring Provider: Faiza Foss, [address], [place], [id number]. tel:[phone] [facility] [place], [address], [place], [id number], [place] tel:[phone] TANI Granger Gender Identity Dis orderHuman immunodeficiency virus [HIV] counselingEncounter for oth general cnsl and advice on contraception Anna Asher. [address], [place], [id number], . tel:[phone] Referring Provider: Lakeshia Castillo, [address], [place], [id number]. tel:[phone] [facility] [place], [address], [place], [id number], [place] tel:[phone] TANI Granger Gender Identity Dis orderEncounter for oth general cnsl and advice on contraception Nanaronny Degroot joaquim. [address], [place], [id number], [place]. tel:[phone] Referring Provider: Lakeshia Castillo, [address] [place] [address], [id number]. tel:[phone] [facility] [place], [address], [place], [id number], [place] tel:[phone] TANI Granger Gender Identity Disorder [place] Anna Asher. [address] [facility], [place], [id number], [place]. tel:[phone] Referring Provider: Lakeshia Castillo, [address], [place], [id number]. tel:[phone] [facility] [place], [address], [place], [id number], [place] tel:[phone] TANI [place] Endocrine disorder, unspecifiedTranssexualismEncounter for oth general cnsl and advice on contraceptionHuman immunodeficiency virus [HIV] counseling Jo. [address] [place] [address], [id number], [place]. tel:[phone] Referring Provider: Marlen Hoffman, [address] [place] [address], [id number]. tel:[phone] [facility], [address] [place] [address], [id number], [place] tel:[phone] [facility] [place] Human immunodeficie ncy virus [HIV] counselingEndocrine disorder, unspecifiedTranssexualismEncounter for oth general cnsl and advice on contraception Jeffdm Gee. [address], [place], [id number], [place]. tel:[phone] Referring Provider: Marlen Hoffman, [address] [place] [address], [id number]. tel:[phone] [facility], [address] [place] [address], [id number], [place] tel:[phone] [facility] [place] Human immunodeficie ncy virus [HIV] counselingEndocrine disorder, unspecifiedTranssexualismEncounter for oth general cnsl and advice on contraception Jeffdm Gee. [address], [place], [id number], [place]. tel:[phone] Referring Provider: Marlen Hoffman, [address] [place] [address], [id number]. tel:[phone] [facility], [address] [place] [address], [id number], [place] tel:[phone] [facility] [place] Human immunodeficie ncy virus [HIV] counselingEndocrine disorder, unspecifiedTranssexualismEncounter for oth general cnsl and advice on contraception Jeffdm Gee. [address], [place], [id number], [place]. tel:[phone] Referring Provider: Marlen Hoffman, [address] [place] [address], [id number]. tel:[phone] [facility], [address] [place] [address], [id number], [place] tel:[phone] [facility] [place] Endocrine disorder, unspecifiedTranssexualismBody mass index (BMI) 29.0-29.9, adult Jeffdm Gee. [address] [place] [address], [id number], . tel:[phone] Referring Provider: Marlen Hoffman, [address] [place] [address], [id number]. tel:[phone] [facility], [address] [place] [address], [id number], tel:[phone] [facility] [place] Endocrine disorder, unspecifiedTranssexualismOther sex counselingBody mass index (BMI) 29.0-29.9, adult Jeffdm Gee. [address] [place] [address], [id number], [place]. tel:[phone] Referring Provider: Marlen Hoffman, [address] [place] [address], [id number]. tel:[phone] Family History Family Member Diagnosis Age At Onset Mother Spinal Maternal grandfather Diabetes mellitus Immunizations Vaccine Date Status Comments No Information Payers Payer name Insurance type Covered democrat ID Authorization(s ) [facility] CI [id number] Social History Type Description Quantity Date Captured [...] Weight-reducing diet education c ompleted Appointment Clayton Santizo samir [place] F /u BOOKED History Of Present Illness Encounter Date [...] Date No Information Medical Equipment Description Device [place] Device Identifier Effective Owen es (start - stop) Status No Information Mental Status Date Cognitive Assessment No Information Health Concerns Observation Date No Information Concern Status Date No Information Physical Examination Exam Findings Details No Information
--- OUTSIDE RECORDS SUMMARY | 2020-11-05 08:03 | CCD | Continuity of Care Document ---
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 STI / H Results Test Name Date and Time Measure Units Reference Range Abnormal Flag St atus Comments No Information Advance Directives Directive Yes / No Effective Date File Name No Information Encounters Encounter Description Practice Location Reason(s) For Visit Diagnose s Date Provider Providers Copied on Encounter [facility], [address] [place] [address], [id number], [place] tel:[phone] TANI Nava [facility] (chief complaint) Gender identity disorder, unspecified Prudence Faiza. [address] [place] [address], [id number], [place]. tel:[phone] Referring Provider: Faiza Foss, [address] [place], [place], [id number]. tel:[phone] [facility], [address] [place] [address], [id number], [place] tel:[phone] TANI Nava Gender Identity Disorder O Prudence Faiza. [address] [place], [place], [id number], [place]. tel:[phone] Referring Provider: Faiza Foss, [address] [place], [place], [id number]. tel:[phone] [facility] [place], [address], [place], [id number], [place] tel:[phone] TANI Granger Gender Identity Dis orderHuman immunodeficiency virus [HIV] counselingEncounter for oth general cnsl and advice on contraception Anna Asher. [address] [place], [place], [id number], [place]. tel:[phone] Referring Provider: Lakeshia Castillo, [address] [place] [address], [id number]. tel:[phone] [facility] [place], [address] [place], [place], [id number], [place] tel:[phone] TANI Granger Gender Identity Dis orderEncounter for oth general cnsl and advice on contraception Anna march. [address], [place], [id number], [place]. tel:[phone] Referring Provider: Lakeshia Castillo, [address] [place], [place], [id number]. tel:[phone] [facility] [place], [address] [place], [place], [id number], [place] tel:[phone] TANI Granger Gender Identity Disorder [place] Anna Asher. [address] [facility], [id number], [place]. tel:[phone] Referring Provider: Lakeshia Castillo, [address] [place], [place], [id number]. tel:[phone] [facility] [place], [address], [place], [id number], [place] tel:[phone] [facility] [place] Endocrine disorder, unspecifiedTranssexualismEncounter for oth general cnsl and advice on contraceptionHuman immunodeficiency virus [HIV] counseling Jeffdm Gee. [address] [place] [address], [id number], . tel:[phone] Referring Provider: Marlen Hoffman, [address] [place] [address], [id number]. tel:[phone] [facility], [address] [place] [address], [id number], [place] tel:[phone] [facility] [place] Human immunodeficie ncy virus [HIV] counselingEndocrine disorder, unspecifiedTranssexualismEncounter for oth general cnsl and advice on contraception Jeffdm Gee. [address] [place], [place], [address] [place] [address], . tel:[phone] Referring Provider: Marlen Hoffman, [address] [place] [address], [id number]. tel:[phone] [facility], [address] [place] [address], [id number], [place] tel:[phone] [facility] [place] Human immunodeficie ncy virus [HIV] counselingEndocrine disorder, unspecifiedTranssexualismEncounter for oth general cnsl and advice on contraception Jeffdm Gee. [address] [place], [place], [id number], [place]. tel:[phone] Referring Provider: Marlen Hoffman, [address] [place] [address], [id number]. tel:[phone] [facility], [address] [place] [address], [id number], tel:[phone] [facility] [place] Human immunodeficie ncy virus [HIV] counselingEndocrine disorder, unspecifiedTranssexualismEncounter for oth general cnsl and advice on contraception Jeffdm Gee. [address] [place], [place], [id number], . tel:[phone] Referring Provider: Marlen Jeff T, [address] [place] [address], [id number]. tel:[phone] [facility], [address] [place] [address], [id number], tel:[phone] [facility] [place] Endocrine disorder, unspecifiedTranssexualismBody mass index (BMI) 29.0-29.9, adult Jeffdm Gee. [address] [place] [address], [id number], [place]. tel:[phone] Referring Provider: Marlen Jeff Hima, [address] [place] [address], [address] [place] [address]. tel:[phone] [facility], [address] [place] [address], [id number], tel:[phone] [facility] [place] Endocrine disorder, unspecifiedTranssexualismOther sex counselingBody mass index (BMI) 29.0-29.9, adult Jeffdm Gee. [address] [place] [address], [id number], [place]. tel:[phone] Referring Provider: Marlen Jeff T, [address] [place] [address], [address] [place] [address]. tel:[phone] Family History Family Member Diagnosis Age At Onset Mother Spinal 1st degree relative No hx of cancer of breast, colon, endome trium or ovary Maternal grandfather Diabetes mellitus 1st degree relative No hx of coronary heart disease (female <65, male <55) 1st degree relative No hx of venous thromboembolism Immunizations Vaccine Date Status Comments No Information Payers Payer name Insurance type Covered alliance party ID Authorization(s ) [facility] CI [id number] Social History Type Description Quantity Date Captured Comments Alcohol Use Details Unknown Caffeine Use Details Unknown Tobacco Use Status No Information Smoking Status Never smoker Sex Male Vital Signs Date / Time: Height Weight BMI Pulse Rate Blood Pressure Temperatu re Respiratory Rate Body Surface Area Head Circumference BMI percentile Pulse Ox In haled Ox No Information Chief Complaint And Reason For Visit Most recent encounter only, dated '10/12/2020 10:30'. HAIR (chief complaint). Description: Patient is here today for a follow-up. Maria ent's sex is male and current gender is male. Patient's gender identity is Female/Woman. Patient prefers to go by She, Her, Hers. Age of awareness was 20. Patient is living as identified gender since 2 Years. Patient is living identified gender at home and social. Patient expresses strong desire for primary and/or secondary sex characteristics to align with gender other than ASAB. Patient desires to continue therapy. Patient reports no current/ prior use of needles to inject hormones or silicones. The following body organ(s ) is/are present: penis, prostate and testes. The patient has been managed with Estrogen. Associated symptoms include change in body fat, decreased libido, moo d swings, sexual dysfunction, skin changes, breast/nipple development, decreased ejaculation, decreased erection, emotional lability, hair changes, reduction in genital size and planned/recent surgery requiring prolonged immobilization. Pe rtinent negatives include change in muscle strength, increased libido, voice foreign nge, decreased hair growth, testicular softening, anxiety, depression, dysphoria , fatigue and hot flashes. Reason For Referral Reason For Referral No Information Plan Of Treatment Date Type Action Status Goal Lifestyle education regarding di et completed Goal Weight-reducing diet education c ompleted Appointment Clayton Santizo (JANEY) BOOKED History Of Present Illness Encounter Date Complaint History Of Present I llness [facility] Patient is here toda y for a follow-up. Patient's sex is male and current gender is male. Patient's gender identity is Female/Woman. Patient prefers to go by She, Her, Hers. Age of awareness was 20. Patient is living as identified gender since 2 Years. Patient is living identified gender at home and social. Patient expresses strong desire for primary and/or secondary sex characteristics to align with gender other than ASAB. Patient desires to continue therapy. Patient reports no current/prior use of needles to inject hormones or silicones. The following body organ(s) is/are present: penis, prostate and testes. The patient has been managed with Estrogen. Associated symptoms include change in body fat, decreased libido, mood swings, sexual dysfunction, skin changes, breast/nipple development, decreased ejaculation, decreased erection, emotional lability, hair changes, reduction in genital size and planned/recent surgery requiring prolonged immobilization. Pertinent negat zenobia include change in muscle strength, increased libido, voice change, decreased hair growth, testicular softening, anxiety, depression, dysphoria, fatigue and hot flashes. Functional Status Date Functional Assessment No Information [...] Date No Information Medical Equipment Description Device [place] Device Identifier Effective Owen es (start - stop) Status No Information Mental Status Date Cognitive Assessment Orientation - Oriented to ti me, place, person, situation.Normal Orientation Health Concerns Observation Date No Information Concern Status Date No Information Physical Examination Exam Findings Details Neurological Normal Level of consciousne ss - Normal. Orientation - Normal. Memory - Normal. Psychiatric Normal Orientation - [place] ed to time, place, person & situation. Appropriate mood and affect.
--- OUTSIDE RECORDS SUMMARY | 2020-11-05 08:03 | CCD | Continuity of Care Document ---
Author Author Clayton TOBAR Organization Unknown Address [address] [place] [address] [place] [address] Phone [phone] Care Team Providers Care Pocket Grinder Operator Name Role Phone [facility] AUTM [phone] [facility] AUTM [phone] Problems Active Problems Provider Date Type 2 [...] SIG Qnty Indications Ordering Provide r Date Doxycycline Monohydrate 100mg Tabl ets 1 tab by mouth twice a day for 10 days 20tabs J20.9 Edvin Elizabeth JR., M.D. 10/11/2020 Prednisone 20mg Tablets 1 tab by mouth twice a day for 4 days 8tabs J20.9 Daphnie Alfaro JR. 10/11/2020 Novolog Penfill 100U nit/ML Solution Cartridge via pump Unknown Aspir-[address] ever y day Unknown Lisinopril 2.5mg Tablets take one tablet daily in the in the morning Unknown Metoprolol Succinate ER 25mg Tablets ER 24HR Unknown Simvastatin 40mg Tablets qd Unknown Omeprazole 40mg Capsules DR 1 by mouth every day Unknown Levothyroxine Sodium Unknown Proair HFA 108(90Base) mcg/Act Aer osol 2 puffs by mouth inhaled every 4-6 hours as needed J20.9 Unknown History Medications Lidocaine 5% Patches 1 patch apply to affected area left chest q12 as needed 30units Edvin Elizabeth JR., M.D. 06/08/2020 - 05/15/2020 Immunizations CPT Code Status Date Vaccine Lot # [id number] Given 11/26/2017 Tdap/Tetanus, Di phth Toxoids/Acellular Pertussis Vac 7Yr Or > [id number] Vital Signs Date Vital Result Comment 10/11/2020 [...] Date Location Provider Dx Diagnosis Office Visit 10/11/2020 12:00p Main Office CAROLINE Womack J20.9 Acute bronchitis, unspecified Z20.828 Contact w and exposure to ot h viral communicable diseases Office Visit 06/08/2020 4:20p Main Office CAROLINE Barajas S23.4 1xA Sprain of ribs, initial encounter Office Visit 05/11/2020 12:30p Main Office Angelica Rangel NP S61. 001A Unsp open wound of right thumb w/o damage to nail, init Assessments Date Code Description Provider 10/11/2020 J20.9 Acute bronchitis, unspecified Re CAROLINE Fletcher 10/11/2020 Z20.828 Contact with and (mcdonnell spected) exposure to other viral communicable diseases CAROLINE Womack 06/08/2020 S23.41xA Sprain of ribs, initial encounte r CAROLINE Barajas 05/11/2020 S61.001A Unspecified open wou nd of right thumb without damage to nail, initial encounter Angelica Rangel, JENSEN Plan of Treatment 10/11/2020 - CAROLINE Womack* J20.9 Acute bronchitis, unspecified* New Medication:* Doxycycline Monohydrate 100 mg - 1 tab by mouth twice a day for 10 days * Prednisone 20 mg - 1 tab by mouth twice a day for 4 days * Comments:* Supportive treatment with fluids and rest.Antibx as directed fo full course.Prednisone and albuterol inhaler for inflammation and chest tightness as directed.Discussed major adverse effects of medications.Patient was instructed on proper use of inhaler.Ensure follow up for any worsening or persistent symptoms. * Z20.828 Contact with and (suspected) exposure to other viral communicable diseases Functional Status Description No Information Available Mental Status Description No Information Available Referrals Description No Information Available
--- OUTSIDE RECORDS SUMMARY | 2020-11-05 08:03 | CCD | Continuity of Care Document ---
Author Author [facility] Organization [facility] Address Unknown Phone Unavailable Care Team Providers Care Commodity Trader Name Role Phone Faiza Davalos Unavailable Unavailable [...] Provider Providers Copied on Encounter [facility], [address] [place] [address], [id number], tel:[phone] TANI Granger No Information Prudence Faiza. [address] [place] [address], [id number], . tel:[phone] [facility] [place], [address] [place] [address], [id number], tel:[phone] TANI Nava Gender identity dis order, unspecified Prudence Kendall. [address] [place] [address], [id number], . tel:[phone] Referring Provider: Faiza Foss, [address], [place], [id number]. tel:[phone] [facility] [place], [address] [place] [address], [id number], [place] tel:[phone] TANI Liberty Gender Identity Disorder O Prudence Kendall. [address], [place], [id number], [place]. tel:[phone] Referring Provider: Faiza Foss, [address], [place], [id number]. tel:[phone] [facility] [place], [address] [place], [place], [id number], [place] tel:[phone] TANI Granger Gender Identity Dis orderHuman immunodeficiency virus [HIV] counselingEncounter for oth general cnsl and advice on contraception Anna Asher. [address], [place], [id number], [place]. tel:[phone] Referring Provider: Lakeshia Castillo, [address] [place], [place], [id number]. tel:[phone] [facility] [place], [address], [place], [id number], [place] tel:[phone] TANI Granger Gender Identity Dis orderEncounter for oth general cnsl and advice on contraception Anna march. [address], [place], [id number], [place]. tel:[phone] Referring Provider: Lakeshia Castillo, [address], [place], [id number]. tel:[phone] [facility] [place], [address], [place], [id number], [place] tel:[phone] TANI Granger Gender Identity Disorder [place] Anna Asher. [address] [facility], [id number], [place]. tel:[phone] Referring Provider: Lakeshia Castillo, [address] [place], [place], [id number]. tel:[phone] [facility] [place], [address] [facility] [place], [id number], [place] tel:[phone] [facility] [place] Endocrine disorder, unspecifiedTranssexualismEncounter for oth general cnsl and advice on contraceptionHuman immunodeficiency virus [HIV] counseling Jeffdm Gee. [address], [place], [id number], [place]. tel:[phone] Referring Provider: Marlen Hoffman, [address] [place] [address], [id number]. tel:[phone] [facility], [address] [place] [address], [id number], [place] tel:[phone] [facility] [place] Human immunodeficie ncy virus [HIV] counselingEndocrine disorder, unspecifiedTranssexualismEncounter for oth general cnsl and advice on contraception Jeffdm Gee. [address], [place], [id number], [place]. tel:[phone] Referring Provider: Marlen Hoffman, [address] [place] [address], [id number]. tel:[phone] [facility], [address] [place] [address], [id number], [place] tel:[phone] [facility] [place] Human immunodeficie ncy virus [HIV] counselingEndocrine disorder, unspecifiedTranssexualismEncounter for oth general cnsl and advice on contraception Jeffdm Gee. [address], [place], [id number], [place]. tel:[phone] Referring Provider: Marlen Hoffman, [address] [place] [address], [id number]. tel:[phone] [facility], [address] [place] [address], [id number], [place] tel:[phone] [facility] [place] Human immunodeficie ncy virus [HIV] counselingEndocrine disorder, unspecifiedTranssexualismEncounter for oth general cnsl and advice on contraception Jeffdm Gee. [address], [place], [id number], . tel:[phone] Referring Provider: Marlen Hoffman, [address] [place] [address], [id number]. tel:[phone] [facility], [address] [place] [address], [id number], tel:[phone] [facility] [place] Endocrine disorder, unspecifiedTranssexualismBody mass index (BMI) 29.0-29.9, adult Jeffdm Gee. [address] [place] [address], [id number], [place]. tel:[phone] Referring Provider: Marlen Hoffman, [address] [place] [address], [id number]. tel:[phone] [facility], [address] [place] [address], [id number], tel:[phone] [facility] [place] Endocrine disorder, unspecifiedTranssexualismOther sex counselingBody mass index (BMI) 29.0-29.9, adult Jeffdm Gee. [address] [place] [address], [id number], . tel:[phone] Referring Provider: Marlen Hfofman, [address] [place] [address], [address] [place] [address]. tel:[phone] Family History Family Member Diagnosis Age At [...] type Covered alliance party ID Authorization(s ) [facility] CI [id number] Social History Type Description Quantity Date Captured [...] Date No Information Medical Equipment Description Device [place] Device Identifier Effective Owen es (start - stop) Status No Information Mental Status Date Cognitive Assessment No Information Health Concerns Observation Date No Information Concern Status Date No Information Physical Examination Exam Findings Details No Information
--- OUTSIDE RECORDS SUMMARY | 2020-11-05 08:04 | CCD | Continuity of Care Document ---
Author Author Clayton RODRIGUEZ MD Organization Unknown Address [address] [facility] [place] [address] Phone [phone] Care Team Providers Care Hospital Librarian Name Role Phone Charisse Saleem MD AUTM [phone] Charisse Cassidy NP AUTM [phone] Problems Active Problems Provider Date Type 2 diabetes mellitus Onset: 02/24/20 13 Hypoglycemia Evelina Rodriguez MD Onset: 02/24/2013 Tobacco user Evelina Rodriguez MD Onset: 02/24/2013 Type 1 diabetes mellitus uncontrolled Evelina Rodriguez MD On set: 07/19/2013 Insulin Pump Status Evelina Rodriguez MD Onset: 2014 Disorder of nervous system due to diabetes mellitus Evelina Rodriguez MD Onset: 11/02/2014 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 Violet Rodriguez MD Onset: 11/02/2014 Noncompliance with treatment Evelina Rodriguez MD Onset: 02/19 Noncompliance with dietary regimen Evelina Rodriguez MD Onset : 06/12/2015 Insulin pump present Evelina Rodriguez MD Onset: 06/12/2015 Long-term current use of insulin Evelina Rodriguez MD Onset: 09/06/2015 Long-term current use of insulin Nina Means PA-C Onset: 04/11/2016 Asthma Onset: 05/28/2016 Impotence Onset: 07/14/2019 Hyperlipidemia Onset: 10/10/2013 Gastroesophageal reflux disease Onset: 0 05/28/2016 Coronary atherosclerosis Onset: 12/03/19 17 Social History Type Date Description Comments Sex Unknown Cigarette Use Current Cigarette Smoker 2 Packs Daily Quit March ETOH Use Rarely consumes alcohol Tobacco Use Start: Unknown End: Unknown Patient is a former smoker Smoking Status Reviewed: 08/20/20 Patient is a former smoker Allergies, Adverse Reactions, Alerts Active Allergies Reaction Severity Comments Date Penicillin 02/23/2013 Medications Active Medications SIG Qnty Indications Ordering Provide r Date Lupron Depot (1-Month) 3.75mg Kit inject 3.75 mg monthly 1units F64.9 Evelina Rodriguez MD 06/20/2020 Levothyroxine Sodium 137mcg Tablet s Take One Tablet By Mouth Every Day 30tabs E89.0 Daphnie Juarez 06/20/2020 Liothyronine Sodium 25mcg Tablets 1 by mouth every day 30tabs E89.0 Evelina Rodriguez MD 06/20/2020 Admelog 100Unit/ML Solution Use as Directed With Pump, Maximum Daily Dose = 80 Units 60units E10.65 Cely Cueto, JENSEN 05/17/2018 Z96.41 Z91.14 Ketone Test Strips use as directed. 250.03 50units Evelina Rodriguez MD 01/12/2015 Onetouch Ultra Blue Strips Use as Directed Four Times A Day 100units E10.65 Evelina Rodriguez MD Insulin [id number]. Quick Set Paradigm Misc uad with insulin pump-changing Q3Day dia.03/251.2 30units Evelina Rodriguez MD 05/19/2013 Insulin Pump Paradigm [id number] 3.0ML Resevior uad, wit h Insulin Pump, Changing resevoir Q3Days 30units Evelina Rodriguez MD 05/19/2013 Aspirin 81mg Tablets 1 po qd 30tabs Evelina Rodriguez MD 02/23/2013 Simvastatin 40mg Tablets 1 po qd 30tabs Evelina Rodriguez MD Metoprolol Tartrate 25mg Tablets 1/2 po qd 60tabs Unknown Lisinopril 2.5mg Tablets 1 po qd 90tabs Unknown Estradiol 2mg Tablets 1 by mouth every day Unknown Immunizations Description No Information Available Vital Signs Date Vital Result Comment 09/20/2020 2:49pm BP Systolic 128 mmHg BP Diastolic 62 mmHg Heart Rate 70 /min Body Temperature 97.0 F Height 70 inches 5'10" Weight 211.00 lb BMI (Body Mass Index) 30.3 kg/m2 O2 % BldC Oximetry 99 % 08/20/2020 1:50pm BP Systolic 140 mmHg BP Diastolic 64 mmHg Heart Rate 73 /min Body Temperature 96.8 F Height 70 inches 5'10" Weight 206.31 lb BMI (Body Mass Index) 29.6 kg/m2 O2 % BldC Oximetry 99 % Results Test Acquired Date Facility Test Result H/L Range Note Laboratory test finding 09/20/2020 In House Glucose 168 Hemoglobin A1c 8.3 FT4&TSH Panel 06/20/2020 [facility] [address] [place] [address] (315)- - Thyroid Stimulating Hormone 15.000 uIU/ML High 0.358 -3.740 Free T4 0.31 ng/dL Low 0.76-1.46 Laboratory test finding 06/20/2020 [facility] [address] [place] [address] (315)- - Prolactin 13.3 NG/ML Normal 2.1-17.7 Laboratory test finding 06/20/2020 In House Hemoglobin A1c 7.7 Glucose 164 FT4&TSH Panel 06/05/2020 [facility] [address] [place] [address] (315)- - Thyroid Stimulating Hormone 0.011 uIU/ML Low 0.358- 3.740 Free T4 0.63 ng/dL Low 0.76-1.46 Laboratory test finding 04/10/2020 In House Hemoglobin A1c 8.1 Glucose 232 Procedures Date Code Description Status 04/10/2020 32428 Amb Glucose Monitoring Interpret ation And Report Completed 04/10/2020 59536 Radiopharmaceutical Therapy By O ral Administration Completed 03/03/2019 [id number] Diabetic Foot Exam Completed Medical Devices Description No Information Available Encounters Type Date Location Provider Dx Diagnosis Office Visit 08/20/2020 1:45p DR. 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 E10.65 Type 1 diabetes mellitus wit h hyperglycemia F64.9 Gender identity disorder, un specified Office Visit 04/10/2020 11:15a DR. 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 E10.65 Type 1 diabetes mellitus wit h hyperglycemia W88.1xxA Exposure to radioactive isot opes, initial encounter Assessments Date Code Description Provider 09/20/2020 E10.65 Type 1 diabetes mellitus with hy perglycemia Evelina Rodriguez MD 09/20/2020 F64.9 Gender identity disorder, unspec ified Evelina Rodriguez MD 09/20/2020 E89.0 Postprocedural hypothyroidism Cl kevona Abelino Rodriguez MD 08/20/2020 E05.00 Thyrotoxicosis with diffuse goiter without thyrotoxic crisis or storm Evelina Rodriguez MD 08/20/2020 E10.65 Type 1 diabetes mellitus with hy perglycemia Evelina Rodriguez MD 08/20/2020 F64.9 Gender identity disorder, unspec ified Evelina Rodriguez MD 06/20/2020 E05.00 Thyrotoxicosis with diffuse goiter without thyrotoxic crisis or storm Evelina Rodriguez MD 06/20/2020 E10.65 Type 1 diabetes mellitus with hy perglycemia Evelina Rodriguez MD 06/20/2020 F64.9 Gender identity disorder, unspec ified Evelina Rodriguez MD 04/10/2020 E05.00 Thyrotoxicosis with diffuse goiter without thyrotoxic crisis or storm Evelina Rodriguez MD 04/10/2020 E10.65 Type 1 diabetes mellitus with hy perglycemia Evelina Rodriguez MD 04/10/2020 W88.1xxA Exposure to radioactive isotopes , initial encounter Evelina Rodriguez MD Plan of Treatment 09/20/2020 - Evelina Rodriguez MD* E10.65 Type 1 diabetes mellitus with hyperglycemia* New Labs:* Glucose, Ordered: 09/20/20 * Hemoglobin A1c, Ordered: 09/20/20 * TSH Ultrasensitive, Scheduled: 09/20/20 * T4 Free Thyroxine Mass/Vol, Scheduled: 09/20/20 * BMP W/Egfr, Scheduled: 09/20/20 * Comments:* in office a1c =7.7 , down from 8.1 random BS= 232 8.4%, 8.6% 9.3% (9.4%, 7.9%, 8.5%, 9%). Random BS= 102Pump download: manually flat profile and CGM. Average blood sugar = 114.: * Follow up:* lab, pump - 3 months-- survey * F64.9 Gender identity disorder, unspecified* New Labs:* Testosterone Total, Scheduled: 09/20/20 * Estrogen Fractionated Serum, Scheduled: 09/20/20 * FSH And LH, Scheduled: 09/20/20 * Comments:* 300 pages of medical records were reviewed from [facility] regarding his transgendered care. Review of records: We received a note from his PCP December. We were unaware that the patient was undergoing sexual reassignment gender transition. He has never mentioned his hormone therapy as before. He now identifies as a female and [facility] [place]. Labs from [facility] pulled and reviewed:08/2019 :erqga=923 sbhfnvrve=410:xuyqw=493 uqyjbfpnx=6509 :vhmyn=899 iojrnbkpe=04010 prfwf=6837 tohuevpcq=941 testo =984 ftxjkqdlu=366Wfcerzs medication: Estradiol 2 mg a day, micronized progesterone 100 mg a day, finasterideHe remains her relationship with a female. He reports to me today that he has been taking estrogen therapy as high as 6 mg a day. He is also on progesterone and on finasteride. He reports that he was going to see the surgeon for orchiectomy but due to conflict with the counselor and psychiatrist office he stopped seeing them. He was apparently discharged from them due to a conflict with the accredited legal secretary.I advised the patient that he if he is serious about gender reassignment he should go forward with seeing the surgeons. I do not feel comfortable with long-term estrogen progesterone finasteride therapy. Records demonstrate that he has failed first-line therapy with estrogen and finasteride. Per the endocrine guidelines from 2009 and the update from 2019: Patient's first-line therapy should be on GNRh agonist combined with estrogen. Therefore patient should be changed to Lupron therapy for medical castration.In addition progestational agents are not recommended as a standard part of care because their associated with increased cardiovascular and breast cancer risk. ( corrected - cbf 07/12/2020) She wanted medical castration and she should be placed on Lupron. Finasteride does not lower her endogenous testosterone production it is merely a testosterone dragan.Breast exam is stage III. \\Started on medication and of June. Lupron. Discontinued finasteride and progesterone. Just took second dose. Testosterone level is still in the 700s and estrogen level = 120. This was done right after the first injection. We'll recheck in September. * E89.0 Postprocedural hypothyroidism* Comments:* Hypothyroid fter CHATTERJEE for GRave's disease 04/10/2020:01/18/2020- TSH: <0.005 02/04/2020- TSH= <0.005, FT4= 2.83, TT3= 241.6, TPO= 86.5, TSI=7.79tsh=0.1. FT4= 0.63 06/20/2020: TSH= 13 FT4=0.3- new problem hypothyroidCurrent:medication:Levothyroxine 137 ug d aily * Follow up:* one month- diabetes pump Functional Status Description No Information Available Mental Status Description No Information Available Referrals Description No Information Available
--- OUTSIDE RECORDS SUMMARY | 2020-11-05 08:04 | CCD | Continuity of Care Document ---
Author Author [facility] Organization [facility] Address Unknown Phone Unavailable Care Team Providers Care Paralegal Legal Secretary Name Role Phone Faiza Davalos Unavailable Unavailable [...] Provider Providers Copied on Encounter [facility] [place], [address] [place] [address], [id number], tel:[phone] TANI Granger No Information Prudence Faiza. [address] [place] [address], [id number], . tel:[phone] [facility] [place], [address] [place] [address], [id number], tel:[phone] TANI Nava Gender Identity Disorder O Prudence Faiza. [address] [place], [place], [id number], [place]. tel:[phone] Referring Provider: Faiza Foss, [address] [place], [place], [id number]. tel:[phone] [facility] [place], [address] [place] [address], [id number], tel:[phone] TANI Granger Gender Identity Dis orderHuman immunodeficiency virus [HIV] counselingEncounter for oth general cnsl and advice on contraception Anna Asher. [address] [place], [place], [id number], [place]. tel:[phone] Referring Provider: Lakeshia Castillo, [address] [place], [place], [id number]. tel:[phone] [facility] [place], [address] [place], [place], [id number], [place] tel:[phone] TANI Granger Gender Identity Dis orderEncounter for oth general cnsl and advice on contraception Anna Degroot joaquim. [address] [place], [place], [id number], [place]. tel:[phone] Referring Provider: Lakeshia Castillo, [address] [place], [place], [id number]. tel:[phone] [facility] [place], [address] [place], [place], [id number], [place] tel:[phone] TANI Granger Gender Identity Disorder [place] Anna Asher. [address] [facility], [place], [id number], [place]. tel:[phone] Referring Provider: Lakeshia Castillo, [address] [place], [place], [id number]. tel:[phone] [facility] [place], [address] [place], [place], [id number], [place] tel:[phone] TANI Stoll Endocrine disorder, unspecifiedTranssexualismEncounter for oth general cnsl and advice on contraceptionHuman immunodeficiency virus [HIV] counseling Jo. [address] [place] [address], [id number], [place]. tel:[phone] Referring Provider: Marlen Hoffman, [address] [place] [address], [id number]. tel:[phone] [facility], [address] [place], [place], [id number], [place] tel:[phone] [facility] [place] Human immunodeficie ncy virus [HIV] counselingEndocrine disorder, unspecifiedTranssexualismEncounter for oth general cnsl and advice on contraception Jeffdm Gee. [address] [place], [place], [id number], . tel:[phone] Referring Provider: Marlen Aguilar Hima, [address] [place] [address], [id number]. tel:[phone] [facility], [address] [place] [address], [id number], [place] tel:[phone] [facility] [place] Human immunodeficie ncy virus [HIV] counselingEndocrine disorder, unspecifiedTranssexualismEncounter for oth general cnsl and advice on contraception Jeffdm Gee. [address] [place], [place], [id number], . tel:[phone] Referring Provider: Marlen Jeff T, [address] [place] [address], [id number]. tel:[phone] [facility], [address] [place] [address], [id number], [place] tel:[phone] [facility] [place] Human immunodeficie ncy virus [HIV] counselingEndocrine disorder, unspecifiedTranssexualismEncounter for oth general cnsl and advice on contraception Jeffdm Gee. [address] [place], [place], [id number], [place]. tel:[phone] Referring Provider: Marlen Jeff T, [address] [place] [address], [id number]. tel:[phone] [facility], [address] [place] [address], [id number], [place] tel:[phone] [facility] [place] Endocrine disorder, unspecifiedTranssexualismBody mass index (BMI) 29.0-29.9, adult Jeffdm Gee. [address] [place] [address], [id number], [place]. tel:[phone] Referring Provider: Marlen Hoffman, [address] [place] [address], [id number]. tel:[phone] [facility], [address] [place], [place], [id number], [place] tel:[phone] [facility] [place] Endocrine disorder, unspecifiedTranssexualismOther sex counselingBody mass index (BMI) 29.0-29.9, adult Jo. [address] [place] [address], [id number], [place]. tel:[phone] Referring Provider: Marlen Hoffman, [address] [place] [address], [id number]. tel:[phone] Family History Family Member Diagnosis Age At Onset Mother Spinal Maternal grandfather Diabetes mellitus Immunizations Vaccine Date Status Comments No Information Payers Payer name Insurance type Covered republican ID Authorization(s ) [facility] CI [id number] Social History Type Description Quantity Date Captured [...] Date No Information Medical Equipment Description Device [place] Device Identifier Effective Owen es (start - stop) Status No Information Mental Status Date Cognitive Assessment No Information Health Concerns Observation Date No Information Concern Status Date No Information Physical Examination Exam Findings Details No Information
--- OUTSIDE RECORDS SUMMARY | 2020-11-05 08:04 | CCD | Continuity of Care Document ---
Author Author Clayton RODRIGUEZ MD Organization Unknown Address [address] [facility], [address] [place] [address] Phone [phone] Care Team Providers Care Technical Operations Specialist Name Role Phone Charisse Saleem MD AUTM [phone] Charisse Cassidy NP AUTM [phone] Problems Active Problems Provider Date Type 2 [...] Every Day 30tabs E89.0 Daphnie Juarez 06/20/2020 Admelog 100Unit/ML Solution use as directed with pump, maximum daily dose = 80 units 60units E10.65 Evelina Rodriguez MD 05/17/2018 Z96.41 Z91.14 Ketone Test Strips use as directed. 250.03 50units Evelina Rodriguez MD 01/12/2015 Onetouch Ultra Blue Strips Use as Directed Four Times A Day 100units E10.65 Evelina Rodriguez MD Insulin [id number]. Quick Set Paradigm Misc uad with insulin [...] Tablets 1 by mouth every day Unknown History Medications Liothyronine Sodium 25mcg Tablets 1 by mouth every day 30tabs E89.0 Evelina Rodriguez MD 06/20/2020 - 09/20/2020 Immunizations Description No Information Available Vital Signs [...] 168 Hemoglobin A1c 8.3 FT4&TSH Panel 06/20/2020 [facility] ntr [address] [place] [address] (315)- - Thyroid Stimulating Hormone 15.000 uIU/ML High 0.358 -3.740 Free T4 0.31 ng/dL Low 0.76-1.46 Laboratory test finding 06/20/2020 [facility] l Centr [address] [place] [address] (315)- - Prolactin 13.3 NG/ML Normal 2.1-17.7 Laboratory test finding 06/20/2020 In House Hemoglobin A1c 7.7 Glucose 164 FT4&TSH Panel 06/05/2020 [facility] ntr [address] [place] [address] (315)- - Thyroid Stimulating Hormone 0.011 uIU/ML Low 0.358- 3.740 Free T4 0.63 ng/dL Low 0.76-1.46 Laboratory test finding 04/10/2020 In House Hemoglobin A1c 8.1 Glucose 232 Procedures Date Code Description Status 09/20/2020 14761 Amb Glucose Monitoring Interpret ation And Report Completed 04/10/2020 41704 Amb Glucose Monitoring Interpret ation And Report Completed 04/10/2020 41915 Radiopharmaceutical Therapy By O ral Administration Completed 03/03/2019 [id number] Diabetic Foot Exam Completed Medical Devices Description No Information Available Encounters Type Date Location Provider Dx Diagnosis Office Visit 09/20/2020 3:00p DR. Evelina Rodriguez MD E 10.65 Type 1 diabetes mellitus with hyperglycemia F64.9 Gender identity disorder, un specified E89.0 Postprocedural hypothyroidis m Office Visit 08/20/2020 1:45p DR. Evelina Rodriguez [...] Rodriguez MD 09/20/2020 E89.0 Postprocedural hypothyroidism Cl eric Rodriguez MD 08/20/2020 E05.00 Thyrotoxicosis with diffuse goiter without thyrotoxic crisis or storm Evelina Rodriguez MD 08/20/2020 E10.65 Type 1 diabetes mellitus with hy perglycemia Evelina Rodriguez MD 08/20/2020 F64.9 Gender identity disorder, unspec ified Evelina Rodriguez MD 06/20/2020 E05.00 Thyrotoxicosis with diffuse goiter without thyrotoxic crisis or storm Evelina Rodriguez MD 06/20/2020 E10.65 Type 1 diabetes mellitus with hy perglycemia Evelina Rodirguez MD 06/20/2020 F64.9 Gender identity disorder, unspec ified Evelina Rodriguez MD 04/10/2020 E05.00 Thyrotoxicosis with diffuse goiter without thyrotoxic crisis or storm Evelina Rodriguez MD 04/10/2020 E10.65 Type 1 diabetes mellitus with hy perglycemia Evelina Rodriguez MD 04/10/2020 W88.1xxA Exposure to radioactive isotopes , initial encounter Evelina Rodriguez MD Plan of Treatment Future Appointment(s):* 12/14/2020 11:45 am - Evelina Rodriguez MD at DR. Evleina Rodriguez 09/20/2020 - Evelina Rodriguez MD* E10.65 Type 1 diabetes mellitus with hyperglycemia* New Labs:* Glucose, Ordered: 09/20/20 * Hemoglobin A1c, Ordered: 09/20/20 * TSH Ultrasensitive, Scheduled: 09/20/20 * T4 Free Thyroxine Mass/Vol, Scheduled: 09/20/20 * BMP W/Egfr, Scheduled: 09/20/20 * Comments:* in office a1c =8.3, up slightly 7.7 , down from 8.1 random BS= 168 8.4%, 8.6% 9.3% (9.4%, 7.9%, 8.5%, 9%). Random BS= 102Pump download and CGM: Average blood sugar = 160 time in range 70%REC:- still over treating lows tends to rise after lunch- either undercounting carbs or we need to chnage carb ratio at follow upIs entering data better. * Follow up:* lab, pump - 3 months-- survey * F64.9 Gender identity disorder, unspecified* New Labs:* Testosterone Total, Scheduled: 09/20/20 * Estrogen Fractionated Serum, Scheduled: 09/20/20 * FSH And LH, Scheduled: 09/20/20 * Comments:* 300 pages of medical records were reviewed from [facility] regarding his transgendered care. Review of records: We received a note from his PCP December. We were unaware that the patient was undergoing sexual reassignment gender transition. He had never mentioned his hormone therapy before. He now identifies as a female and [facility] [place]. Labs from [facility] pulled and reviewed:08/2019 :wyrlp=106 lpdrwjnsl=336/2019:jtzup=247 cczgjeejv=6689/2019 :djbcy=902 mplscrbpj=55036/ wvint=4177 oquzljaaa=891 testo =984 mtfmnjszz=502Hy remains her relationship with a female. He reported p reviously that he had been taking estrogen therapy as high as 6 mg a day. He was also on progesterone and on finasteride. He reports that he was going to see the surgeon for orchiectomy but due to conflict with the counselor and psychiatrist office he stopped seeing them. He was apparently discharged from them due to a conflict with the engineering secretary.Records demonstrate that he has failed first-line therapy [...] with increased cardiovascular and breast cancer risk. She wanted medical castration and she should be placed on Lupron. Finasteride does not lower her endogenous testosterone production it is merely a testosterone dragan.Breast exam is stage III. Current medication: Estradiol 2 mg a day, , lupron monthly Testosterone level was still in the 700s and estrogen level = 120. recheck now. i will call urologist in [place] to expedite referral. 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 FT4= 0.63 Became hypot hyroid:06/20/2020: TSH= 13 FT4=0.3Current:medication:Levothyroxine 137 ug daily recheck now Functional Status Description No Information Available Mental Status Description No Information Available Referrals Description No Information Available
--- OUTSIDE RECORDS SUMMARY | 2020-11-05 08:04 | CCD | Continuity of Care Document ---
Author Author [facility] Organization [facility] Address Unknown Phone Unavailable Care Team Providers Care Wood Window And Door Craftsman Name Role Phone Faiza Davalos Unavailable Unavailable [...] Provider Providers Copied on Encounter [facility] [place] [place], [address] [place] [address], [id number], tel:[phone] TANI Granger No Information Prudence Faiza. [address] [place] [address], [id number], . tel:[phone] [facility] [place], [address] [place] [address], [id number], tel:[phone] TANI Nava Gender Identity Disorder O Prudence Faiza. [address] [place], [place], [id number], [place]. tel:[phone] Referring Provider: Faiza Foss, [address] [place], [place], [id number]. tel:[phone] [facility] [place], [address] [place] [address], [id number], tel:[phone] TANI Granger Gender Identity Dis orderHuman immunodeficiency virus [HIV] counselingEncounter for oth general cnsl and advice on contraception Anna Asher. [address] [place], [place], [id number], [place]. tel:[phone] Referring Provider: Lakeshia Castillo, [address] [place], [place], [id number]. tel:[phone] [facility], [address] [place], [place], [id number], [place] tel:[phone] TANI Granger Gender Identity Dis orderEncounter for oth general cnsl and advice on contraception Anna Degroot joaquim. [address] [place], [place], [id number], [place]. tel:[phone] Referring Provider: Lakeshia Castillo, [address] [place], [place], [id number]. tel:[phone] [facility] [place], [address] [place], [place], [id number], [place] tel:[phone] TANI Granger Gender Identity Disorder [place] Anna Asher. [address] [facility], [place], [id number], [place]. tel:[phone] Referring Provider: Lakeshia Castillo, [address] [place], [place], [id number]. tel:[phone] [facility] [place], [address] [place], [place], [id number], [place] tel:[phone] TANI Stoll Endocrine disorder, unspecifiedTranssexualismEncounter for oth general cnsl and advice on contraceptionHuman immunodeficiency virus [HIV] counseling Jo. [address] [place] [address], [id number], [place]. tel:[phone] Referring Provider: Marlen Hoffman, [address] [place] [address], [id number]. tel:[phone] [facility] [place], [address] [place], [place], [id number], [place] tel:[phone] [facility] Human immunodeficie ncy virus [HIV] counselingEndocrine disorder, unspecifiedTranssexualismEncounter for oth general cnsl and advice on contraception Jeffdm Gee. [address] [place], [place], [id number], . tel:[phone] Referring Provider: Marlen Aguilar Hima, [address] [place] [address], [id number]. tel:[phone] [facility], [address] [place] [address], [id number], [place] tel:[phone] [facility] [place] Human immunodeficie ncy virus [HIV] counselingEndocrine disorder, unspecifiedTranssexualismEncounter for oth general cnsl and advice on contraception Jeffdm Gee. [address] [place], [place], [id number], . tel:[phone] Referring Provider: Marlen Jeff T, [address] [place] [address], [id number]. tel:[phone] [facility], [address] [place] [address], [id number], [place] tel:[phone] [facility] [place] Human immunodeficie ncy virus [HIV] counselingEndocrine disorder, unspecifiedTranssexualismEncounter for oth general cnsl and advice on contraception Jeffdm Gee. [address] [place], [place], [id number], [place]. tel:[phone] Referring Provider: Marlen Jeff T, [address] [place] [address], [id number]. tel:[phone] [facility], [address] [place] [address], [id number], [place] tel:[phone] [facility] [place] Endocrine disorder, unspecifiedTranssexualismBody mass index (BMI) 29.0-29.9, adult Jeffdm Gee. [address] [place] [address], [id number], [place]. tel:[phone] Referring Provider: Marlen Hoffman, [address] [place] [address], [id number]. tel:[phone] [facility], [address] [place], [place], [id number], [place] tel:[phone] [facility] Endocrine disorder, unspecifiedTranssexualismOther sex counselingBody mass index (BMI) 29.0-29.9, adult Jeffdm Gee. [address] [place] [address], [id number], [place]. tel:[phone] Referring Provider: Marlen Hoffman, [address] [place] [address], [id number]. tel:[phone] Family History Family Member Diagnosis Age At Onset Mother Spinal Maternal grandfather Diabetes mellitus Immunizations Vaccine Date Status Comments No Information Payers Payer name Insurance type Covered constitution party ID Authorization(s ) [facility] CI [id number] Social History Type Description Quantity Date Captured [...] Date No Information Medical Equipment Description Device Hyrum Device Identifier Effective Owen es (start - stop) Status No Information Mental Status Date Cognitive Assessment No Information Health Concerns Observation Date No Information Concern Status Date No Information Physical Examination Exam Findings Details No Information
--- OUTSIDE RECORDS SUMMARY | 2020-11-05 08:04 | CCD | Continuity of Care Document ---
Author Author Clayton RODRIGUEZ MD Organization Unknown Address [address] [facility], [address] [place] [address] Phone [phone] Care Team Providers Care Flight Security Specialist Name Role Phone Charisse Saleem MD AUTM [phone] Charisse Cassidy NP AUTM [phone] Problems Active Problems Provider Date Type 2 [...] Day 100units E10.65 Evelina Rodriguez MD Insulin [id number]. Quick Set Paradigm Misc uad with insulin [...] Result H/L Range Note Laboratory test finding 09/24/2020 [facility] [employer] Centr [address] [place] [address] (315)- - Thyroid Stimulating Hormone 1.420 uIU/ML Normal 0.358- 3.740 Free T4 1.26 ng/dL Normal 0.76-1.46 Estrogen Fractionated Serum 09/24/2020 [facility] dical Centr [address] [place] [address] (315)- - Estrone Serum 235 pg/mL High 15-65 Estradiol 83.5 pg/mL High 7.6-42.6 1 BMP W/Egfr 09/24/2020 [facility] ntr [address] [place] [address] (315)- - Glucose, Fasting 246 mg/dL High 70-100 Blood Urea Nitrogen 17 mg/dL Normal 7-18 Creatinine For GFR 0.96 mg/dL Normal 0.70-1.30 Glomerular Filtration Rate > 60.0 Normal >56 2 Sodium Level 137 mEq/L Normal 136-145 Potassium Serum 4.3 mEq/L Normal 3.5-5.1 Chloride Level 104 mEq/L Normal 98-107 Carbon Dioxide Level 28 mEq/L Normal 21-32 Anion Gap 5 mEq/L Low 8-16 Calcium Level 8.6 mg/dL Normal 8.5-10.1 Laboratory test finding 09/24/2020 [facility] [address] [place] [address] (315)- - Testosterone 15 ng/dL Low 241-827 3 Follicle Stimulating Hormone 0.8 mIU/mL Low 1.4-18.1 Luteinizing Hormone 0.1 mIU/mL Low 1.5-9.3 Laboratory test finding 09/20/2020 In House Glucose 168 Hemoglobin A1c 8.3 FT4&TSH Panel 06/20/2020 [facility] n[facility] [address] [place] [address] (315)- - Thyroid Stimulating Hormone 15.000 uIU/ML High 0.358 -3.740 Free T4 0.31 ng/dL Low 0.76-1.46 Laboratory test finding 06/20/2020 [facility] Centr [address] [place] [address] (315)- - Prolactin 13.3 NG/ML Normal 2.1-17.7 Laboratory test finding 06/20/2020 In House Hemoglobin A1c 7.7 Glucose 164 FT4&TSH Panel 06/05/2020 [facility] Ce ntr [address] [place] [address] (315)- - Thyroid Stimulating Hormone 0.011 uIU/ML Low 0.358- 3.740 Free T4 0.63 ng/dL Low 0.76-1.46 Laboratory test finding 04/10/2020 In House Hemoglobin A1c 8.1 Glucose 232 1 Salo ECLIA methodology Performed at: BN - [facility] [address] [id number] Head Machinist: Marlys Jin MD, Phone: [phone] Performed at: RN - [facility] [address] [id number] Head Machinist: Gladis Paul MD, Phone: [phone] 2 Units are mL/min/1.73 m2 Chronic Kidney Disease Staging per NKF: Stage I & II GFR >=60 Normal to Mildly Decreased Stage III GFR 30-59 Moderately Decreased Stage IV GFR 15-29 Severely Decreased Stage V GFR <15 Very Little GFR Left ESRD GFR <15 on TRUCK GUARD 3 NORMAL RANGES ARE FOR ADULT FEMALES (OVER 15 YRS) AND MALES (OVER 19 YRS). FOR PEDIATRIC RANGES PLE ASE CONSULT LITERATURE. Procedures Date Code Description Status 09/20/2020 63150 Amb Glucose Monitoring Interpret ation And Report Completed 04/10/2020 28184 Amb Glucose Monitoring Interpret ation And Report Completed 04/10/2020 04295 Radiopharmaceutical Therapy By O ral Administration Completed 03/03/2019 [id number] Diabetic Foot Exam Completed Medical Devices Description [...] am - Evelina Rodriguez MD at DR. Evelina Rodriguez 09/20/2020 - Evelina Rodriguez MD* E10.65 Type 1 diabetes mellitus with hyperglycemia* New Labs:* Glucose, Ordered: 09/20/20 * Hemoglobin A1c, Ordered: 09/20/20 * Comments:* in office a1c =8.3, [...] survey * F64.9 Gender identity disorder, unspecified* Comments:* 300 pages of medical records were reviewed from [facility] regarding his transgendered care. Review of records: We received a note from his PCP December. We were unaware that the patient was undergoing sexual reassignment gender transition. He had never mentioned his hormone therapy before. He now identi fies as a female and has [facility] in [facility] in [place]. Labs from [facility] pulled and reviewed:08/2019 :lcmcv=517 hixocqtko=120:voofr=497 zumunhisb=9990 :qpfdy=505 krpeldstp=90788/ phnox=3371 drymskyen=014/04/2020 testo =984 sxsznbmpv=141Xd remains her relationship with a female. He reported previously that he had been taking estrogen therapy as high as 6 mg a day. He was also on progesterone and on finasteride. He reports that he was going to see the surgeon for orchiectomy but due to conflict with the counselor and psychiatrist office he stopped seeing them. He was apparently discharged from them due to a conflict with the product introduction manager.Records demonstrate that he has failed first-line therapy [...] recheck now. i will call urologist in [place] to expedite referral. * E89.0 Postprocedural hypothyroidism* [...]
--- OUTSIDE RECORDS SUMMARY | 2020-11-05 08:04 | CCD | Continuity of Care Document ---
Author Author [facility] Organization [facility] Address Unknown Phone Unavailable Care Team Providers Care Contact Lens Lathe Operator Name Role Phone Angelic Yost MD Unavailable Unavailable Allergies, Adverse Reactions, Alerts Substance Reaction Status Criticality Penicillins Active No Information Medications Medication Instructions Dosage Effective Dates (start - stop) Sta tus Comments estradiol 2 mg tablet take 1 tablet by po daily. A llow to dissolve under the tongue x 30 min before swallowing. - Act dez Lupron Depot 3.75 mg intramuscular syringe kit [...] 2 mg tablet take 1 tablet by po daily. A llow to dissolve under the tongue x 30 min before swallowing. - No Longer Active Problems Condition Effective [...] Provider Providers Copied on Encounter [facility], [address] [place] [address], [id number], tel:[phone] TANI Granger No Information Priyank Atwood. [address] [place] [address], [id number], [place]. tel:[phone] [facility], [address] [place] [address], [id number], [place] tel:[phone] TANI Nava Gender Identity Disorder O Prudence Kendall. [address] [place] [address], [id number], [place]. tel:[phone] Referring Provider: Faiza Foss, [address] [place], [place], [id number]. tel:[phone] [facility] [place], [address] [place], [place], [id number], [place] tel:[phone] TANI Granger Gender Identity Dis orderHuman immunodeficiency virus [HIV] counselingEncounter for oth general cnsl and advice on contraception Anna Asher. [address] [place], [place], [id number], [place]. tel:[phone] Referring Provider: Lakeshia Castillo, [address] [place], [place], [id number]. tel:[phone] [facility] [place], [address] [place], [place], [id number], [place] tel:[phone] TANI Granger Gender Identity Dis orderEncounter for oth general cnsl and advice on contraception Anna march. [address] [place], [place], [id number], [place]. tel:[phone] Referring Provider: Lakeshia Castillo, [address] [place], [place], [id number]. tel:[phone] [facility] [place], [address] [place], [place], [id number], [place] tel:[phone] TANI Granger Gender Identity Disorder [place] Anna Asher. [address] [facility] [place], [id number], [place]. tel:[phone] Referring Provider: Lakeshia Castillo, [address] [place], [place], [id number]. tel:[phone] [facility] [place], [address] [place], [place], [id number], [place] tel:[phone] TANI Stoll Endocrine disorder, unspecifiedTranssexualismEncounter for oth general cnsl and advice on contraceptionHuman immunodeficiency virus [HIV] counseling Jo. [address] [place] [address], [id number], [place]. tel:[phone] Referring Provider: Marlen Hoffman, [address] [place] [address], [id number]. tel:[phone] [facility], [address] [place] [address], [id number], [place] tel:[phone] [facility] [place] Human immunodeficie ncy virus [HIV] counselingEndocrine disorder, unspecifiedTranssexualismEncounter for oth general cnsl and advice on contraception Jeffdm Gee. [address] [place], [place], [id number], [place]. tel:[phone] Referring Provider: Marlen Hoffman, [address] [place] [address], [id number]. tel:[phone] [facility], [address] [place] [address], [id number], tel:[phone] [facility] [place] Human immunodeficie ncy virus [HIV] counselingEndocrine disorder, unspecifiedTranssexualismEncounter for oth general cnsl and advice on contraception Jeffdm Gee. [address] [place], [place], [id number], [place]. tel:[phone] Referring Provider: Marlen Hoffman, [address] [place] [address], [id number]. tel:[phone] [facility], [address] [place] [address], [id number], [place] tel:[phone] [facility] [place] Human immunodeficie ncy virus [HIV] counselingEndocrine disorder, unspecifiedTranssexualismEncounter for oth general cnsl and advice on contraception Jeffdm Gee. [address] [place], [place], [id number], [place]. tel:[phone] Referring Provider: Marlen Hoffman, [address] [place] [address], [id number]. tel:[phone] [facility], [address] [place] [address], [id number], tel:[phone] FANNIENCCUCO [place] Endocrine disorder, unspecifiedTranssexualismBody mass index (BMI) 29.0-29.9, adult Jeffdm Gee. [address] [place] [address], [id number], . tel:[phone] Referring Provider: Marlen Hoffman, [address] [place] [address], [id number]. tel:[phone] [facility], [address] [place] [address], [id number], tel:[phone] TANI [place] Endocrine disorder, unspecifiedTranssexualismOther sex counselingBody mass index (BMI) 29.0-29.9, adult Jeffdm Gee. [address] [place] [address], [id number], . tel:[phone] Referring Provider: Marlen Hoffman, [address] [place] [address], [id number]. tel:[phone] Family History Family Member Diagnosis Age At Onset Mother Spinal Maternal grandfather Diabetes mellitus Immunizations Vaccine Date Status Comments No Information Payers Payer name Insurance type Covered constitution party ID Authorization(s ) [facility] CI [id number] Social History Type Description Quantity Date Captured [...] Date No Information Medical Equipment Description Device Valentines Device Identifier Effective Owen es (start - stop) Status No Information Mental Status Date Cognitive Assessment No Information Health Concerns Observation Date No Information Concern Status Date No Information Physical Examination Exam Findings Details No Information
--- OUTSIDE RECORDS SUMMARY | 2020-11-05 08:04 | CCD | Continuity of Care Document ---
Author Author Clayton RODRIGUEZ MD Organization Unknown Address [address] [facility] [place] [address] Phone [phone] Care Team Providers Care Sports Analyst Name Role Phone Charisse Saleem MD AUTM [phone] Charisse Cassidy NP AUTM [phone] Problems Active Problems Provider Date Type 2 [...] Day 100units E10.65 Evelina Rodriguez MD Insulin [id number]. Quick Set Paradigm Misc uad with insulin [...] H/L Range Note Laboratory test finding 09/24/2020 [facility] [address] [place] [address] (315)- - Thyroid Stimulating Hormone 1.420 uIU/ML Normal 0.358- 3.740 Free T4 1.26 ng/dL Normal 0.76-1.46 BMP W/Egfr 09/24/2020 [facility] [address] [place] [address] (315)- - Glucose, Fasting 246 mg/dL High 70-100 Blood Urea Nitrogen 17 mg/dL Normal 7-18 Creatinine For GFR 0.96 mg/dL Normal 0.70-1.30 Glomerular Filtration Rate > 60.0 Normal >56 1 Sodium Level 137 mEq/L Normal 136-145 Potassium Serum 4.3 mEq/L Normal 3.5-5.1 Chloride Level 104 mEq/L Normal 98-107 Carbon Dioxide Level 28 mEq/L Normal 21-32 Anion Gap 5 mEq/L Low 8-16 Calcium Level 8.6 mg/dL Normal 8.5-10.1 Laboratory test finding 09/24/2020 [facility] [address] [place] [address] (315)- - Testosterone 15 ng/dL Low 241-827 2 Follicle Stimulating Hormone 0.8 mIU/mL Low 1.4-18.1 Luteinizing Hormone 0.1 mIU/mL Low 1.5-9.3 Laboratory test finding 09/20/2020 In House Glucose 168 Hemoglobin A1c 8.3 FT4&TSH Panel 06/20/2020 [facility] [address] [place] [address] (315)- - Thyroid Stimulating Hormone 15.000 uIU/ML High 0.358 -3.740 Free T4 0.31 ng/dL Low 0.76-1.46 Laboratory test finding 06/20/2020 [facility] [address] [place] [address] (315)- - Prolactin 13.3 NG/ML Normal 2.1-17.7 Laboratory test finding 06/20/2020 In House Hemoglobin A1c 7.7 Glucose 164 FT4&TSH Panel 06/05/2020 [facility] [address] [place] [address] (315)- - Thyroid Stimulating Hormone 0.011 uIU/ML Low 0.358- 3.740 Free T4 0.63 ng/dL Low 0.76-1.46 Laboratory test finding 04/10/2020 In House Hemoglobin A1c 8.1 Glucose 232 1 Units are mL/min/1.73 m2 Chronic Kidney Disease Staging per NKF: Stage I & II GFR >=60 Normal to Mildly Decreased Stage III GFR 30-59 Moderately Decreased Stage IV GFR 15-29 Severely Decreased Stage V GFR <15 Very Little GFR Left ESRD GFR <15 on KNITTING MACHINE TENDER 2 NORMAL RANGES ARE FOR ADULT FEMALES (OVER 15 YRS) AND MALES (OVER 19 YRS). FOR PEDIATRIC RANGES PLE ASE CONSULT LITERATURE. Procedures Date Code Description Status 09/20/2020 39290 Amb Glucose Monitoring Interpret ation And Report Completed 04/10/2020 48500 Amb Glucose Monitoring Interpret ation And Report Completed 04/10/2020 74688 Radiopharmaceutical Therapy By O ral Administration Completed 03/03/2019 [id number] Diabetic Foot Exam Completed Medical Devices Description [...] pages of medical records were reviewed from [facility] regarding his transgendered care. Review of records: We received a note from his PCP December. We were unaware that the patient was undergoing sexual reassignment gender transition. He had never mentioned his hormone therapy before. He now identi mo as a female and has [facility] [place]. Labs from [facility] pulled and reviewed:08/2019 :idyll=920 btfgbkfdr=506/2019:nkjyx=499 mrnyfmucp=7994/2019 :zjwcl=994 xlfyhsjit=37456/ welub=2300 azzrzbllt=965/04/2020 testo =984 fzhndbxye=047Yf remains her relationship with a female. He [...] them due to a conflict with the payroll secretary.Records demonstrate that he has failed first-line [...] recheck now. i will call urologist in [place] to expedite referral. * E89.0 Postprocedural hypothyroidism* [...]
--- OUTSIDE RECORDS SUMMARY | 2020-11-05 08:05 | CCD | Continuity of Care Document ---
Author Author [facility] Organization [facility] Address Unknown Phone Unavailable Care Team Providers Care Color Matcher Name Role Phone Faiza Davalos Unavailable Unavailable Allergies, Adverse Reactions, Alerts Substance Reaction Status Criticality Penicillins Active No Information Medications Medication Instructions Dosage Effective Dates (start - stop) Sta tus Comments estradiol 2 mg tablet take 1 tablet by po daily. A llow to dissolve under the tongue x 30 min before swallowing. - Act dez estradiol 2 mg tablet take 1 tablet [...] Provider Providers Copied on Encounter [facility], [address] [place] [address], [id number], tel:[phone] TANI Granger No Information Prudence Faiza. [address] [place] [address], [id number], [place]. tel:[phone] [facility] [place], [address] [place] [address], [id number], [place] tel:[phone] TANI Nava Gender Identity Disorder O Prudence Faiza. [address] [place] [address], [id number], [place]. tel:[phone] Referring Provider: Faiza Foss, [address] [place], [place], [id number]. tel:[phone] [facility] [place], [address] [place], [place], [id number], tel:[phone] TANI Granger Gender Identity Dis orderHuman immunodeficiency virus [HIV] counselingEncounter for oth general cnsl and advice on contraception Anna Ahser. [address] [place], [place], [id number], [place]. tel:[phone] Referring Provider: Lakeshia Castillo, [address] [place], [place], [id number]. tel:[phone] [facility] [place], [address] [place], [place], [id number], [place] tel:[phone] TANI Granger Gender Identity Dis orderEncounter for oth general cnsl and advice on contraception Anna march. [address] [place], [place], [id number], [place]. tel:[phone] Referring Provider: Lakeshia Castillo, [address] [place] [address], [id number]. tel:[phone] [facility] [place], [address] [place], [place], [id number], [place] tel:[phone] TANI Granger Gender Identity Disorder [place] Anna Asher. [address] [facility], [place], [id number], [place]. tel:[phone] Referring Provider: Lakeshia Castillo, [address] [place], [place], [id number]. tel:[phone] [facility] [place], [address] [place], [place], [id number], [place] tel:[phone] TANI Stoll Endocrine disorder, unspecifiedTranssexualismEncounter for oth general cnsl and advice on contraceptionHuman immunodeficiency virus [HIV] counseling Jo. [address] [place] [address], [id number], . tel:[phone] Referring Provider: Marlen Hoffman, [address] [place] [address], [id number]. tel:[phone] [facility], [address] [place] [address], [id number], tel:[phone] [facility] [place] Human immunodeficie ncy virus [HIV] counselingEndocrine disorder, unspecifiedTranssexualismEncounter for oth general cnsl and advice on contraception Jeffdm Gee. [address] [place], [place], [id number], [place]. tel:[phone] Referring Provider: Marlen Hoffman, [address] [place] [address], [id number]. tel:[phone] [facility], [address] [place] [address], [address] [place] [address], tel:[phone] [facility] [place] Human immunodeficie ncy virus [HIV] counselingEndocrine disorder, unspecifiedTranssexualismEncounter for oth general cnsl and advice on contraception Jeffdm Gee. [address] [place], [place], [id number], [place]. tel:[phone] Referring Provider: Marlen Hoffman, [address] [place] [address], [id number]. tel:[phone] [facility], [address] [place] [address], [id number], [place] tel:[phone] [facility] [place] Human immunodeficie ncy virus [HIV] counselingEndocrine disorder, unspecifiedTranssexualismEncounter for oth general cnsl and advice on contraception Jeffdm Gee. [address] [place], [place], [id number], [place]. tel:[phone] Referring Provider: Marlen Hoffman, [address] [place] [address], [id number]. tel:[phone] [facility], [address] [place] [address], [id number], tel:[phone] FANNIENCCUCO [place] Endocrine disorder, unspecifiedTranssexualismBody mass index (BMI) 29.0-29.9, adult Jeffdm Gee. [address] [place] [address], [id number], . tel:[phone] Referring Provider: Marlen Hoffman, [address] [place] [address], [id number]. tel:[phone] [facility], [address] [place] [address], [id number], tel:[phone] TANI [place] Endocrine disorder, unspecifiedTranssexualismOther sex counselingBody mass index (BMI) 29.0-29.9, adult Jeffdm Gee. [address] [place] [address], [id number], . tel:[phone] Referring Provider: Marlen Hoffman, [address] [place] [address], [id number]. tel:[phone] Family History Family Member Diagnosis Age At Onset Mother Spinal Maternal grandfather Diabetes mellitus Immunizations Vaccine Date Status Comments No Information Payers Payer name Insurance type Covered alliance party ID Authorization(s ) [facility] CI [id number] Social History Type Description Quantity Date Captured [...] education c ompleted Appointment Clayton Santizo samir [facility] F /u BOOKED History Of Present Illness [...] Date No Information Medical Equipment Description Device [place] Device Identifier Effective Owen es (start - stop) Status No Information Mental Status Date Cognitive Assessment No Information Health Concerns Observation Date No Information Concern Status Date No Information Physical Examination Exam Findings Details No Information
--- OUTSIDE RECORDS SUMMARY | 2020-11-05 08:05 | CCD | Continuity of Care Document ---
Author Author [facility] Organization [facility] Address [address] [place] [address] Phone Care Team Providers Care Chair Inspector Name Role Phone Faiza Davalos Unavailable Unavailable [...] Provider Providers Copied on Encounter [facility], [address] [place] [address], [id number], tel:[phone] TANI Granger No Information Prudence Faiza. [address] [place] [address], [id number], [place]. tel:[phone] [facility], [address] [place] [address], [id number], tel:[phone] TANI Nava Gender Identity Disorder O Prudence Faiza. [address] [place] [address], [id number], . tel:[phone] Referring Provider: Faiza Foss, [address] [place], [place], [id number]. tel:[phone] [facility], [address] [place], [place], [id number], [place] tel:[phone] TANI Granger Gender Identity Dis orderHuman immunodeficiency virus [HIV] counselingEncounter for oth general cnsl and advice on contraception Anna Asher. [address] [place], [place], [id number], [place]. tel:[phone] Referring Provider: Lakeshia Castillo, [address] [place], [place], [id number]. tel:[phone] [facility] [place], [address] [place], [place], [id number], [place] tel:[phone] TANI Granger Gender Identity Dis orderEncounter for oth general cnsl and advice on contraception Anna march. [address] [place], [place], [id number], [place]. tel:[phone] Referring Provider: Lakeshia Castillo, [address] [place], [place], [id number]. tel:[phone] [facility], [address] [place], [place], [id number], [place] tel:[phone] TANI Granger Gender Identity Disorder [place] Anna Asher. [address] [facility] [place], [id number], [place]. tel:[phone] Referring Provider: Lakeshia Castillo, [address] [place], [place], [id number]. tel:[phone] [facility] [place], [address] [place], [place], [id number], [place] tel:[phone] TANI Stoll Endocrine disorder, unspecifiedTranssexualismEncounter for oth general cnsl and advice on contraceptionHuman immunodeficiency virus [HIV] counseling Jeffdm Gee. [address] [place], [place], [id number], [place]. tel:[phone] Referring Provider: Marlen Aguilar [place], [address] [place] [address], [id number]. tel:[phone] [facility], [address] [place] [address], [id number], [place] tel:[phone] [facility] [place] Human immunodeficie ncy virus [HIV] counselingEndocrine disorder, unspecifiedTranssexualismEncounter for oth general cnsl and advice on contraception Jeffdm Gee. [address] [place], [place], [id number], [place]. tel:[phone] Referring Provider: Marlen Hoffman, [address] [place] [address], [id number]. tel:[phone] [facility], [address] [place] [address], [id number], [place] tel:[phone] [facility] [place] Human immunodeficie ncy virus [HIV] counselingEndocrine disorder, unspecifiedTranssexualismEncounter for oth general cnsl and advice on contraception Jeffdm Gee. [address] [place], [place], [id number], [place]. tel:[phone] Referring Provider: Marlen Hoffman, [address] [place] [address], [id number]. tel:[phone] [facility], [address] [place] [address], [id number], [place] tel:[phone] [facility] [place] Human immunodeficie ncy virus [HIV] counselingEndocrine disorder, unspecifiedTranssexualismEncounter for oth general cnsl and advice on contraception Jeffdm Gee. [address] [place], [place], [id number], [place]. tel:[phone] Referring Provider: Mareln Hoffman, [address] [place] [address], [id number]. tel:[phone] [facility], [address] [place] [address], [id number], tel:[phone] FANNIENCCUCO [place] Endocrine disorder, unspecifiedTranssexualismBody mass index (BMI) 29.0-29.9, adult Jeffdm Gee. [address] [place] [address], [id number], . tel:[phone] Referring Provider: Marlen Hoffman, [address] [place] [address], [id number]. tel:[phone] [facility], [address] [place] [address], [id number], tel:[phone] FANNIENCCUCO [place] Endocrine disorder, unspecifiedTranssexualismOther sex counselingBody mass index (BMI) 29.0-29.9, adult Jeffdm Gee. [address] [place] [address], [id number], . tel:[phone] Referring Provider: Marlen Hoffman, [address] [place] [address], [address] [place] [address]. tel:[phone] Family History Family Member Diagnosis Age At Onset Mother Spinal Maternal grandfather Diabetes mellitus Immunizations Vaccine Date Status Comments No Information Payers Payer name Insurance type Covered republican ID Authorization(s ) [facility] CI [id number] Social History Type Description Quantity Date Captured [...] education c ompleted Appointment Clayton Santizo samir [facility] F /u BOOKED History Of Present Illness [...] Date No Information Medical Equipment Description Device [place] Device Identifier Effective Owen es (start - stop) Status No Information Mental Status Date Cognitive Assessment No Information Health Concerns Observation Date No Information Concern Status Date No Information Physical Examination Exam Findings Details No Information
--- OUTSIDE RECORDS SUMMARY | 2020-11-05 08:06 | CCD ---
Author Author [facility] Organization [facility] Address Unknown Phone Unavailable Care Team Providers Care Agricultural Extension Educator Name Role Phone Loli Yost MD Unavailable Unavailable Loli Yost MD Unavailable Unavailable Loli Yost MD Unavailable Unavailable Loli Yost MD Unavailable Unavailable Loli Yost MD Unavailable Unavailable Loli Yost MD Unavailable Unavailable Loli Yost MD Unavailable Unavailable Loli Yost MD Unavailable Unavailable Loli Yost MD Unavailable Unavailable Loli Yost MD Unavailable Unavailable Loli Yost MD Unavailable Unavailable Loli Yost MD Unavailable Unavailable Loli Yost MD Unavailable Unavailable Loli Yost MD Unavailable Unavailable Loli Yost MD Unavailable Unavailable Loli Yost MD Unavailable Unavailable Loli Yost MD Unavailable Unavailable Loli Yost MD Unavailable Unavailable Loli Yost MD Unavailable Unavailable Priyank, Loli Atwood MD Unavailable Unavailable Priyank, Loli Atwood MD Unavailable Unavailable Priyank, Loli Atwood MD Unavailable Unavailable Priyank, A Angelic BASS Unavailable Unavailable Priyank, A Angelic BASS Unavailable Unavailable Priyank, A Angelic BASS Unavailable Unavailable Priyank, A Angelic BASS Unavailable Unavailable Priyank, Loli Atwood MD Unavailable Unavailable Priyank, Loli Atwood MD Unavailable Unavailable Priyank, Loli Atwood MD Unavailable Unavailable Priyank, A Angelic BASS Unavailable Unavailable Priyank, A Angelic BASS Unavailable Unavailable Priyank, A Angelic BASS Unavailable Unavailable Priyank, A Angelic BASS Unavailable Unavailable Priyank, A Angelic BASS Unavailable Unavailable Priyank, Loli Atwood MD Unavailable Unavailable Priyank, Loli Atwood MD Unavailable Unavailable Priyank, A Angelic BASS Unavailable Unavailable Priyank, A Angelic BASS Unavailable Unavailable Priyank, A Angelic BASS Unavailable Unavailable Priyank, A Angelic BASS Unavailable Unavailable Priyank, A Angelic BASS Unavailable Unavailable Priyank, A Angelic BASS Unavailable Unavailable Priyank, A Angelic BASS Unavailable Unavailable Priyank, A Angelic BASS Unavailable Unavailable Priyank, A Angelic BASS Unavailable Unavailable Priyank, A Angelic BASS Unavailable Unavailable Priyank, A nAgelic BASS Unavailable Unavailable Priyank, A Angelic BASS Unavailable Unavailable Priyank, A Angelic BASS Unavailable Unavailable Priyank, Loli Atwood MD Unavailable Unavailable Priyank, Loli Atwood MD Unavailable Unavailable Priyank, Loli Atwood MD Unavailable Unavailable Priyank, A Angelic BASS Unavailable Unavailable Priyank, A Angelic BASS Unavailable Unavailable Priyank, A Angelic BASS Unavailable Unavailable Priyank, A Angelic BASS Unavailable Unavailable Priyank, Loli Atwood MD Unavailable Unavailable Priyank, Loli Atwood MD Unavailable Unavailable Priyank, Loli Atwood MD Unavailable Unavailable Priyank, Loli Atwood MD Unavailable Unavailable Priyank, Loli Atwood MD Unavailable Unavailable Priyank, Loli Atwood MD Unavailable Unavailable Priyank, Loli Atwood MD Unavailable Unavailable Priyank, Loli Atwood MD Unavailable Unavailable Priyank, Loli Atwood MD Unavailable Unavailable Priyank, Loli Atwood MD Unavailable Unavailable Priyank, Loli Atwood MD Unavailable Unavailable Priyank, Loli Atwood MD Unavailable Unavailable Priyank, Loli Atwood MD Unavailable Unavailable Priyank, Loli Atwood MD Unavailable Unavailable Priyank, A Angelic BASS Unavailable Unavailable Priyank, A Angelic BASS Unavailable Unavailable Priyank, A Angelic BASS Unavailable Unavailable Priyank, Loli Atwood MD Unavailable Unavailable Priyank, Loli Atwood MD Unavailable Unavailable HOMAR, E FAVIAN HYDRO PNEUMATIC TESTER Unavailable Unavailable HOMAR, E FAVIAN HYDRO PNEUMATIC TESTER Unavailable Unavailable HOMAR, E FAVIAN HYDRO PNEUMATIC TESTER Unavailable Unavailable HOMAR, E FAVIAN HYDRO PNEUMATIC TESTER Unavailable Unavailable HOMAR, E FAVIAN HYDRO PNEUMATIC TESTER Unavailable Unavailable HOMAR, E FAVIAN HYDRO PNEUMATIC TESTER Unavailable Unavailable HOMAR, E FAVIAN HYDRO PNEUMATIC TESTER Unavailable Unavailable HOMAR, E FAVIAN HYDRO PNEUMATIC TESTER Unavailable Unavailable HOMAR, E FAVIAN HYDRO PNEUMATIC TESTER Unavailable Unavailable HOMAR, E FAVIAN HYDRO PNEUMATIC TESTER Unavailable Unavailable HOMAR, E FAVIAN HYDRO PNEUMATIC TESTER Unavailable Unavailable HOMAR, E FAVIAN HYDRO PNEUMATIC TESTER Unavailable Unavailable HOMAR, E FAVIAN HYDRO PNEUMATIC TESTER Unavailable Unavailable Cassidy, E Charisse HYDRO PNEUMATIC TESTER Unavailable Unavailable Cassidy, E Charisse HYDRO PNEUMATIC TESTER Unavailable Unavailable Cassidy, E Charisse HYDRO PNEUMATIC TESTER Unavailable Unavailable Cassidy, E Charisse HYDRO PNEUMATIC TESTER Unavailable Unavailable Cassidy, E Charisse HYDRO PNEUMATIC TESTER Unavailable Unavailable Cassidy, E Charisse HYDRO PNEUMATIC TESTER Unavailable Unavailable Cassidy, E Charisse HYDRO PNEUMATIC TESTER Unavailable Unavailable Cassidy, E Charisse HYDRO PNEUMATIC TESTER Unavailable Unavailable Cassidy, E Charisse HYDRO PNEUMATIC TESTER Unavailable Unavailable Cassidy, E Charisse HYDRO PNEUMATIC TESTER Unavailable Unavailable Cassidy, E Charisse HYDRO PNEUMATIC TESTER Unavailable Unavailable Cassidy, E Charisse HYDRO PNEUMATIC TESTER Unavailable Unavailable Cassidy, E Charisse HYDRO PNEUMATIC TESTER Unavailable Unavailable Cassidy, E Charisse HYDRO PNEUMATIC TESTER Unavailable Unavailable Cassidy, E Charisse HYDRO PNEUMATIC TESTER Unavailable Unavailable Cassidy, E Charisse HYDRO PNEUMATIC TESTER Unavailable Unavailable Cassidy, E Charisse HYDRO PNEUMATIC TESTER Unavailable Unavailable Cassidy, E Charisse HYDRO PNEUMATIC TESTER Unavailable Unavailable Cassidy, E Charisse HYDRO PNEUMATIC TESTER Unavailable Unavailable Cassidy, E Charisse HYDRO PNEUMATIC TESTER Unavailable Unavailable Cassidy, E Charisse HYDRO PNEUMATIC TESTER Unavailable Unavailable Cassidy, E Charisse HYDRO PNEUMATIC TESTER Unavailable Unavailable PRYBYLOWSKI, E TITA PA Unavailable Unavailable PRYBYLOWSKI, E TITA PA Unavailable Unavailable PRYBYLOWSKI, E TITA PA Unavailable Unavailable PRYBYLOWSKI, E TITA PA Unavailable Unavailable PRYBYLOWSKI, E TITA PA Unavailable Unavailable PRYBYLOWSKI, E TITA PA Unavailable Unavailable PRYBYLOWSKI, E TITA PA Unavailable Unavailable PRYBYLOWSKI, E TITA PA Unavailable Unavailable PRYBYLOWSKI, E TITA PA Unavailable Unavailable PRYBYLOWSKI, E TITA PA Unavailable Unavailable PRYBYLOWSKI, E TITA PA Unavailable Unavailable PRYBYLOWSKI, E TITA PA Unavailable Unavailable PRYBYLOWSKI, E TITA PA Unavailable Unavailable PRYBYLOWSKI, E TITA PA Unavailable Unavailable PRYBYLOWSKI, E TITA PA Unavailable Unavailable PRYBYLOWSKI, E TITA PA Unavailable Unavailable Stephanie Soliz MD Unavailable Unavailable Stephanie Soliz MD Unavailable Unavailable Stephanie Soliz MD Unavailable Unavailable Stephanie Soliz MD Unavailable Unavailable Stephanie Soliz MD Unavailable Unavailable Stephanie Soliz MD Unavailable Unavailable Stephanie Soliz MD Unavailable Unavailable Stephanie Soliz MD Unavailable Unavailable Stephanie Soliz MD Unavailable Unavailable Stephanie Soliz MD Unavailable Unavailable Stephanie Soliz MD Unavailable Unavailable Stephanie Soliz MD Unavailable Unavailable Stephanie Soliz MD Unavailable Unavailable Fish, B Evelina BASS Unavailable Unavailable Fish, B Evelina BASS Unavailable Unavailable Fish, B Evelina BASS Unavailable Unavailable Fish, B Evelina BASS Unavailable Unavailable Fish, B Evelina BASS Unavailable Unavailable Fish, B Evelina BASS Unavailable Unavailable Fish, B Evelina BASS Unavailable Unavailable Fish, B Evelina BASS Unavailable Unavailable Fish, B Evelina BASS Unavailable Unavailable Fish, B Evelina BASS Unavailable Unavailable Fish, B Evelina BASS Unavailable Unavailable Fish, B Evelina BASS Unavailable Unavailable Fish, B Evelina BASS Unavailable Unavailable Fish, B Evelina BASS Unavailable Unavailable Fish, B Evelina BASS Unavailable Unavailable Fish, B Evelina BASS Unavailable Unavailable Fish, B Evelina BASS Unavailable Unavailable Fish, B Evelina BASS Unavailable Unavailable Fish, B Evelina BASS Unavailable Unavailable Fish, B Evelina BASS Unavailable Unavailable Fish, B Evelina BASS Unavailable Unavailable Fish, B Evelina BASS Unavailable Unavailable Fish, B Evelina BASS Unavailable Unavailable Fish, B Evelina BASS Unavailable Unavailable Fish, B Evelina BASS Unavailable Unavailable Fish, B Evelina BASS Unavailable Unavailable Fish, B Evelina BASS Unavailable Unavailable Fish, B Evelina BASS Unavailable Unavailable Fish, B Evelina BASS Unavailable Unavailable Fish, B Evelina BASS Unavailable Unavailable Fish, B Evelina BASS Unavailable Unavailable Fish, B Evelina BASS Unavailable Unavailable Fish, B Evelina BASS Unavailable Unavailable Fish, B Evelina BASS Unavailable Unavailable Fish, B Evelina BASS Unavailable Unavailable Fish, B Evelina BASS Unavailable Unavailable Fish, B Evelina BASS Unavailable Unavailable Fish, B Evelina BASS Unavailable Unavailable Fish, B Evelina BASS Unavailable Unavailable Fish, B Evelina BASS Unavailable Unavailable Fish, B Evelina BASS Unavailable Unavailable Fish, B Evelina BASS Unavailable Unavailable Fish, B Evelina BASS Unavailable Unavailable Fish, B Evelina BASS Unavailable Unavailable Fish, B Evelina BASS Unavailable Unavailable Fish, B Evelina BASS Unavailable Unavailable Fish, B Evelina BASS Unavailable Unavailable Fish, B Evelina BASS Unavailable Unavailable Fish, B Evelina BASS Unavailable Unavailable Fish, B Evelina BASS Unavailable Unavailable Fish, B Evelina BASS Unavailable Unavailable COOK, B JACQUELIN HYDRO PNEUMATIC TESTER Unavailable Unavailable COOK, B JACQUELIN HYDRO PNEUMATIC TESTER Unavailable Unavailable COOK, B JACQUELIN HYDRO PNEUMATIC TESTER Unavailable Unavailable COOK, B JACQUELIN HYDRO PNEUMATIC TESTER Unavailable Unavailable COOK, B JACQUELIN HYDRO PNEUMATIC TESTER Unavailable Unavailable COOK, B JACQUELIN HYDRO PNEUMATIC TESTER Unavailable Unavailable COOK, B JACQUELIN HYDRO PNEUMATIC TESTER Unavailable Unavailable COOK, B JACQUELIN HYDRO PNEUMATIC TESTER Unavailable Unavailable COOK, B JACQUELIN HYDRO PNEUMATIC TESTER Unavailable Unavailable COOK, B JACQUELIN HYDRO PNEUMATIC TESTER Unavailable Unavailable COOK, B JACQUELIN HYDRO PNEUMATIC TESTER Unavailable Unavailable COOK, B JACQUELIN HYDRO PNEUMATIC TESTER Unavailable Unavailable COOK, B JACQUELIN HYDRO PNEUMATIC TESTER Unavailable Unavailable COOK, B JACQUELIN HYDRO PNEUMATIC TESTER Unavailable Unavailable COOK, B JACQUELIN HYDRO PNEUMATIC TESTER Unavailable Unavailable COOK, B JACQUELIN HYDRO PNEUMATIC TESTER Unavailable Unavailable COOK, B JACQUELIN HYDRO PNEUMATIC TESTER Unavailable Unavailable COOK, B JACQUELIN HYDRO PNEUMATIC TESTER Unavailable Unavailable COOK, B JACQUELIN HYDRO PNEUMATIC TESTER Unavailable Unavailable COOK, B JACQUELIN HYDRO PNEUMATIC TESTER Unavailable Unavailable COOK, B JACQUELIN HYDRO PNEUMATIC TESTER Unavailable Unavailable COOK, B JACQUELIN HYDRO PNEUMATIC TESTER Unavailable Unavailable COOK, B JACQUELIN HYDRO PNEUMATIC TESTER Unavailable Unavailable COOK, B JACQUELIN HYDRO PNEUMATIC TESTER Unavailable Unavailable COOK, B JACQUELIN HYDRO PNEUMATIC TESTER Unavailable Unavailable COOK, B JACQUELIN HYDRO PNEUMATIC TESTER Unavailable Unavailable COOK, B JACQUELIN HYDRO PNEUMATIC TESTER Unavailable Unavailable COOK, B JACQUELIN HYDRO PNEUMATIC TESTER Unavailable Unavailable COOK, B JACQUELIN HYDRO PNEUMATIC TESTER Unavailable Unavailable COOK, B JACQUELIN HYDRO PNEUMATIC TESTER Unavailable Unavailable COOK, B JACQUELIN HYDRO PNEUMATIC TESTER Unavailable Unavailable COOK, B JACQUELIN HYDRO PNEUMATIC TESTER Unavailable Unavailable COOK, B JACQUELIN HYDRO PNEUMATIC TESTER Unavailable Unavailable COOK, B JACQUELIN HYDRO PNEUMATIC TESTER Unavailable Unavailable COOK, B JACQUELIN HYDRO PNEUMATIC TESTER Unavailable Unavailable COOK, B JACQUELIN HYDRO PNEUMATIC TESTER Unavailable Unavailable COOK, B JACQUELIN HYDRO PNEUMATIC TESTER Unavailable Unavailable COOK, B JACQUELIN HYDRO PNEUMATIC TESTER Unavailable Unavailable COOK, B JACQUELIN HYDRO PNEUMATIC TESTER Unavailable Unavailable COOK, B JACQUELIN HYDRO PNEUMATIC TESTER Unavailable Unavailable COOK, B JACQUELIN HYDRO PNEUMATIC TESTER Unavailable Unavailable COOK, B JACQUELIN HYDRO PNEUMATIC TESTER Unavailable Unavailable COOK, B JACQUELIN HYDRO PNEUMATIC TESTER Unavailable Unavailable COOK, B JACQUELIN HYDRO PNEUMATIC TESTER Unavailable Unavailable COOK, B JACQUELIN HYDRO PNEUMATIC TESTER Unavailable Unavailable COOK, B JACQUELIN HYDRO PNEUMATIC TESTER Unavailable Unavailable COOK, B JACQUELIN HYDRO PNEUMATIC TESTER Unavailable Unavailable COOK, B JACQUELIN HYDRO PNEUMATIC TESTER Unavailable Unavailable COOK, B JACQUELIN HYDRO PNEUMATIC TESTER Unavailable Unavailable COOK, B JACQUELIN HYDRO PNEUMATIC TESTER Unavailable Unavailable COOK, B JACQUELIN HYDRO PNEUMATIC TESTER Unavailable Unavailable COOK, B JACQUELIN HYDRO PNEUMATIC TESTER Unavailable Unavailable COOK, B JACQUELIN HYDRO PNEUMATIC TESTER Unavailable Unavailable COOK, B JACQUELIN HYDRO PNEUMATIC TESTER Unavailable Unavailable COOK, B JACQUELIN HYDRO PNEUMATIC TESTER Unavailable Unavailable COOK, B JACQUELIN HYDRO PNEUMATIC TESTER Unavailable Unavailable COOK, B JACQUELIN HYDRO PNEUMATIC TESTER Unavailable Unavailable COOK, B JACQUELIN HYDRO PNEUMATIC TESTER Unavailable Unavailable COOK, B JACQUELIN HYDRO PNEUMATIC TESTER Unavailable Unavailable COOK, B JACQUELIN HYDRO PNEUMATIC TESTER Unavailable Unavailable COOK, B JACQUELIN HYDRO PNEUMATIC TESTER Unavailable Unavailable COOK, B JACQUELIN HYDRO PNEUMATIC TESTER Unavailable Unavailable COOK, B JACQUELIN HYDRO PNEUMATIC TESTER Unavailable Unavailable COOK, B JACQUELIN HYDRO PNEUMATIC TESTER Unavailable Unavailable RING, K DOLORES PA Unavailable Unavailable RING, K DOLORES PA Unavailable Unavailable RING, K DOLORES PA Unavailable Unavailable RING, K DOLORES PA Unavailable Unavailable RING, K DOLORES PA Unavailable Unavailable RING, K DOLORES PA Unavailable Unavailable RING, K DOLORES PA Unavailable Unavailable RING, K DOLORES PA Unavailable Unavailable RING, K DOLORES PA Unavailable Unavailable RING, K DOLORES PA Unavailable Unavailable RING, K DOLORES PA Unavailable Unavailable RING, K DOLORES PA Unavailable Unavailable RING, K DOLORES PA Unavailable Unavailable RING, K DOLORES PA Unavailable Unavailable RING, K DOLORES PA Unavailable Unavailable RING, K DOLORES PA Unavailable Unavailable RING, K DOLORES PA Unavailable Unavailable RING, K DOLORES PA Unavailable Unavailable RING, K DOLORES PA Unavailable Unavailable RING, K DOLORES PA Unavailable Unavailable RING, K DOLORES PA Unavailable Unavailable Rangel, Angelica HYDRO PNEUMATIC TESTER Unavailable Unavailable Rangel, Angelica HYDRO PNEUMATIC TESTER Unavailable Unavailable Rangel, Angelica HYDRO PNEUMATIC TESTER Unavailable Unavailable Rangel, Angelica HYDRO PNEUMATIC TESTER Unavailable Unavailable Rangel, Angelica HYDRO PNEUMATIC TESTER Unavailable Unavailable Rangel, Angelica HYDRO PNEUMATIC TESTER Unavailable Unavailable Rangel, Angelica HYDRO PNEUMATIC TESTER Unavailable Unavailable Rangel, Angelica HYDRO PNEUMATIC TESTER Unavailable Unavailable Rangel, Angelica HYDRO PNEUMATIC TESTER Unavailable Unavailable Rangel, Angelica HYDRO PNEUMATIC TESTER Unavailable Unavailable Rangel, Angelica HYDRO PNEUMATIC TESTER Unavailable Unavailable [facility], KGATES Unavailable Unavailable Tatum, Audrey Jennifer PA Unavailable Unavailable Tatum, Audrey Jennifer PA Unavailable Unavailable Tatum, Audrey Jennifer PA Unavailable Unavailable Tatum, Audrey Jennifer PA Unavailable Unavailable Tatum, Audrey Jennifer PA Unavailable Unavailable Tatum, Audrey Jennifer PA Unavailable Unavailable Tatum, Audrey Jennifer PA Unavailable Unavailable Tatum, Audrey Jennifer PA Unavailable Unavailable Tatum, Audrey Jennifer PA Unavailable Unavailable Tatum, Audrey Jennifer PA Unavailable Unavailable Jenifer, Selene Marlen HYDRO PNEUMATIC TESTER Unavailable Unavailable Jenifer, Selene Marlen HYDRO PNEUMATIC TESTER Unavailable Unavailable Jenifer, Selene Marlen HYDRO PNEUMATIC TESTER Unavailable Unavailable Jenifer, Selene Marlen HYDRO PNEUMATIC TESTER Unavailable Unavailable Jenifer, Selene Marlen HYDRO PNEUMATIC TESTER Unavailable Unavailable Jenifer, Selene Marlen HYDRO PNEUMATIC TESTER Unavailable Unavailable Jenifer, Selene Marlen HYDRO PNEUMATIC TESTER Unavailable Unavailable Jenifer, Selene Gee HYDRO PNEUMATIC TESTER Unavailable Unavailable Jenifer, Selene Gee HYDRO PNEUMATIC TESTER Unavailable Unavailable Jenifer, Selene Gee HYDRO PNEUMATIC TESTER Unavailable Unavailable PRYBYLOWSKI, E TITA PA Unavailable Unavailable PRYBYLOWSKI, E TITA PA Unavailable Unavailable PRYBYLOWSKI, E TITA PA Unavailable Unavailable PRYBYLOWSKI, E TITA PA Unavailable Unavailable PRYBYLOWSKI, E TITA PA Unavailable Unavailable PRYBYLOWSKI, E TITA PA Unavailable Unavailable PRYBYLOWSKI, E TITA PA Unavailable Unavailable PRYBYLOWSKI, E TITA PA Unavailable Unavailable PRYBYLOWSKI, E TITA PA Unavailable Unavailable PRYBYLOWSKI, E TITA PA Unavailable Unavailable PRYBYLOWSKI, E TITA PA Unavailable Unavailable PRYBYLOWSKI, E TITA PA Unavailable Unavailable PRYBYLOWSKI, E TITA PA Unavailable Unavailable PRYBYLOWSKI, E TITA PA Unavailable Unavailable PRYBYLOWSKI, E TITA PA Unavailable Unavailable PRYBYLOWSKI, E TITA PA Unavailable Unavailable Re-disclosure Warning The records that you are about to access may contain information from federally-assisted alcohol or drug abuse programs. If such information is present, then the following federally mandated warning applies: This information has been disclosed to you from records protected by federal confidentiality rules (42 CFR part 2). The federal rules prohibit you from making any further disclosure of this information unless further disclosure is expressly permitted by the written consent of the person to whom it pertains or as otherwise permitted by 42 CFR part 2. A general authorization for the release of medical or other information is NOT sufficient for this purpose. The Federal rules restrict any use of the information to criminally investigate or prosecute any alcohol or drug abuse patient.The records that you are about to access may contain highly sensitive health information, the redisclosure of which is protected by Article 27-F of the [facility] Public Health law. If you continue you may have access to information: Regarding HIV / AIDS; Provided by facilities licensed or operated by the [facility] Office of Mental Health; or Provided by the [facility] Office for People With Developmental Disabilities. If such information is present, then the following [facility] mandated warning applies: This information has been disclosed to you from confidential records which are protected by state law. State law prohibits you from making any further disclosure of this information without the specific written consent of the person to whom it pertains, or as otherwise permitted by law. Any unauthorized further disclosure in violation of state law may result in a fine or care home sentence or both. A general authorization for the release of medical or other information is NOT sufficient authorization for further disc losure. Allergies and Adverse Reactions Type Description Substance Reaction Status Data Source(s ) Allergy to substance Allergy to substance Allergy to substance [facility] ([facility]) Allergy to substance Allergy to substance Allergy to substance J[facility] ([facility]) Allergy to substance Allergy to substance Allergy to substance [facility] ([facility]) Family History Family Member Name Family Member Gender Family Member Status Date o f Status Description Data Source(s) Unknown Female Diagnosis 03/27/2020 12:00:00 AM EDT [facility] ([facility]) Unknown Unknown Problem [facility] ([facility]) father's side sister Unknown Male Problem MEDENT ([facility] Unknown Male Problem MEDENT ([facility]) Unknown Female Problem MEDENT ([facility]) Unknown Female Problem MEDENT ([facility]) Unknown Female Problem MEDENT ([facility]) Encounters Encounter Providers Location Date Indications Data Source(s ) Attender: Angelic Arauz 08/2021 08:07:00 AM EST - 11/02/2020 08:07:00 AM EST [facility] ([facility]) Attender: TITA Granger 10/17/2020 03:17:00 PM EST - 10/17/2020 03:17:00 PM EST [facility] ([facility]) Attender: TITA Lopez 10/12/2020 10:30:00 AM EST - 10/12/2020 10:30:00 AM EST Gender identity disorder, unspecified [facility] ([facility]) Gender identity disorder, unspecified Outpatient Attender: DOLORES Busch 10/11/2020 11:00:00 AM EST [facility] ([facility]) Attender: TITA Lopez 10/03/2020 03:34:00 PM EST - 10/03/2020 03:34:00 PM EST [facility] ([facility]) Attender: TITA Granger 09/27/2020 01:16:00 PM EST - 09/27/2020 01:16:00 PM EST [facility] ([facility]) Attender: TITA Granger 09/25/2020 01:27:00 PM EST - 09/25/2020 01:27:00 PM EST [facility] ([facility]) Outpatient Attender: Evelina Soliz MD Physical Therapy 09/20 02:00:00 PM EST [facility] ([facility]) Attender: Angelic Granger 1 10/31/2019 10:49:00 AM EST - 08/30/2020 10:49:00 AM EST [facility] ([facility]) Attender: TITA Granger 08/29/2020 07:43:00 AM EST - 08/29/2020 07:43:00 AM EST [facility] ([facility]) Attender: TITA Granger 08/28/2020 09:48:00 AM EST - 08/28/2020 09:48:00 AM EST [facility] ([facility]) Outpatient Attender: Evelina Soliz MD Physical Therapy 08/20 12:45:00 PM EST [facility] ([facility]) Attender: TITA Granger 07/24/2020 09:24:00 AM EST - 07/24/2020 09:24:00 AM EST [facility] ([facility]) Attender: TITA Granger 07/23/2020 10:13:00 AM EST - 07/23/2020 10:13:00 AM EST [facility] ([facility]) Attender: TITA Stoll 09:01:00 AM EDT - 07/18/2020 09:01:00 AM EDT [facility] ([facility]) Attender: TITA Stoll 11:42:00 AM EDT - 07/17/2020 11:42:00 AM EDT [facility] ([facility]) Attender: TITA Granger 07/16/2020 12:42:00 PM EDT - 07/16/2020 12:42:00 PM EDT [facility] ([facility]) Attender: TITA Lopez 07/13/2020 10:30:00 AM EDT - 07/13/2020 10:30:00 AM EDT Gender Identity Disorder [facility] ([facility]) Gender Identity Disorder Outpatient Attender: [facility] 07/11/2020 09:38:00 AM ED T [facility] BLAIR MalinBC: [address], [place] [address], Ph. Attender: Charisse Cassidy NP [facility] 07/11/2020 12:00:00 AM EDT [facility] ([facility]) BLAIR MalinBC: [address], [place] [address], Ph. Attender: Charisse Cassidy NP [facility] 07/11/2020 12:00:00 AM EDT [facility] ([facility]) BLAIR MalinBC: [address], [place] [address], Ph. Attender: Charisse Cassidy NP [facility] 07/11/2020 12:00:00 AM EDT [facility] ([facility]) Attender: TITA Granger 06/20/2020 03:07:00 PM EDT - 06/20/2020 03:07:00 PM EDT [facility] ([facility]) Outpatient Attender: Evelina Soliz MD Physical Therapy 06/20 01:45:00 PM EDT MEDENT ([facility]) Outpatient Attender: Jennifer garcia 06/08/2020 04:20:00 PM EDT [facility] ([facility]) Attender: TITA Granger 06/08/2020 09:11:00 AM EDT - 06/08/2020 09:11:00 AM EDT [facility] ([facility]) [facility]: [facility] 11[facility]02:02 AM ED T [facility] Outpatient Attender: [facility] 06/06/2020 11:02:00 AM ED T [facility] Outpatient Attender: [facility] 05/25/2020 03:36:03 PM ED T [facility] Outpatient Attender: [facility] 05/25/2020 03:36:02 PM ED T [facility] Attender: Angelic Stoll 04/23 08:56:00 AM EDT - 05/21/2020 08:56:00 AM EDT [facility] ([facility]) [facility]2020 09:41:01 AM ED T [facility] Outpatient Attender: Angelica teixeira 05/11/2020 12:30:00 PM EDT [facility] ([facility]) Attender: FAVIAN Granger 02:37:00 PM EDT - 05/08/2020 02:37:00 PM EDT [facility] ([facility]) Attender: Angelic Granger 0 04/23/2020 10:00:00 AM EDT - 04/23/2020 10:00:00 AM EDT [facility] ([facility]) Attender: TITA Lopez 04/13/2020 07:46:00 AM EDT - 04/13/2020 07:46:00 AM EDT [facility] ([facility]) Outpatient Attender: Evelina Soliz MD Physical Therapy 04/10 11:15:00 AM EDT [facility] ([facility]) Attender: FAVIAN Granger 04/2020 08:03:00 AM EDT - 03/28/2020 08:03:00 AM EDT [facility] ([facility]) Attender: FAVINA Granger 03/2020 09:00:00 AM EDT - 03/27/2020 09:00:00 AM EDT Encounter for oth general cnsl and advic e on contraceptionHuman immunodeficiency virus [HIV] counselingGender Identity Disorder [facility] ([facility]) Encounter for oth general cnsl and advic e on contraception Human immunodeficiency virus [HIV] couns eling Gender Identity Disorder Outpatient Attender: Evelina Soliz MD Physical Therapy 03/19 01:30:00 PM EDT [facility] ([facility]) Outpatient Attender: [facility] 02/29/2020 10:36:00 AM ED T [facility] Outpatient Attender: [facility] 2020 07:37:30 PM ED T [facility] Attender: FAVIAN Granger 12/2019 08:45:00 AM EDT - 02/23/2020 08:45:00 AM EDT Encounter for oth general cnsl and advic e on contraceptionGender Identity Disorder [facility] ([facility]) Encounter for oth general cnsl and advic e on contraception Gender Identity Disorder Attender: FAVIAN Granger 11/2019 01:59:00 PM EDT - 02/22/2020 01:59:00 PM EDT [facility] ([facility]) Attender: FAVIAN Granger 10/2019 01:12:00 PM EDT - 02/21/2020 01:12:00 PM EDT [facility] ([facility]) Outpatient Attender: JACQUELIN MILTON NP Physical Therapy 02/20/2020 0 2:30:00 PM EDT [facility] ([facility]) Attender: FAVIAN Granger 09/2019 08:20:00 AM EDT - 02/20/2020 08:20:00 AM EDT [facility] ([facility]) [facility]/16/2020 02:17:01 PM ED T [facility] 02/10/2020 10:34:01 AM ED T [facility] Attender: FAVIAN Granger 08:30:00 AM EDT - 02/09/2020 08:30:00 AM EDT [place] [facility] ([facility]) [place] Gender Identity Disorder Attender: FAVIAN Granger 12:44:00 PM EDT - 02/08/2020 12:44:00 PM EDT [facility] ([facility]) [facility] 02/06/2020 02:39:01 PM ED T [facility] Outpatient Attender: JACQUELIN MILTON NP Physical Therapy 01/31/2020 0 1:45:00 PM EDT [facility] ([facility]) Attender: FAVIAN Granger 08/2020 12:44:00 PM EDT - 01/31/2020 12:44:00 PM EDT [facility] ([facility]) Attender: FAVIAN Granger 07/2020 02:55:00 PM EDT - 01/30/2020 02:55:00 PM EDT [facility] ([facility]) Outpatient Attender: [facility] 01/30/2020 08:50:01 AM ED T [facility] 01/25/2020 01:22:00 PM ED T [facility] 01/25/2020 11:54:01 AM ED T [facility] 01/25/2020 11:54:01 AM ED T [facility] 01/18/2020 03:30:03 PM ED T [facility] Outpatient Attender: [facility] 01/18/2020 02:56:00 PM ED T [facility] Outpatient Attender: [facility] 01/18/2020 02:55:00 PM ED T [facility] 01/18/2020 10:48:01 AM ED T [facility] 01/18/2020 10:03:00 AM ED T [facility] Outpatient Attender: [facility] 01/18/2020 09:24:00 AM ED T [facility] 01/12/2020 01:11:05 PM ED T [facility] Without Test Attender: Marlen Stoll 0 12/21/2019 09:15:00 AM EDT - 12/21/2019 09:15:00 AM EDT Human immunodeficiency virus [HIV] counselingEncounter for oth general cnsl and advice on contraceptionTranssexualismEndocrine disorder, unspecified [facility] ([facility]) Human immunodeficiency virus [HIV] couns eling Encounter for oth general cnsl and advic e on contraception Transsexualism Endocrine disorder, unspecified Outpatient Attender: Evelina Soliz MD Physical Therapy 12/19 10:00:00 AM EDT [facility] ([facility]) [facility] 12/12/2019 09:01:04 PM ED T [facility] Attender: FAVIAN Granger 01:32:00 PM EDT - 12/02/2019 01:32:00 PM EDT [facility] ([facility]) Attender: FAVIAN Granger 07/2020 08:07:00 AM EDT - 11/30/2019 08:07:00 AM EDT [facility] ([facility]) Attender: FAVIAN Granger 06/2020 09:33:00 AM EDT - 11/29/2019 09:33:00 AM EDT [facility] ([facility]) Outpatient Referrer: TITA VELAZQUEZ 11/28/2019 12:02: 00 PM EDT [facility] Outpatient Referrer: TITA VELAZQUEZ 11/28/2019 11:57: 00 AM EDT [facility] Attender: Marlen Burgess NP PPNCCUCO Jerman 09:15:00 AM EST - 09/28/2019 09:15:00 AM EST Encounter for oth general cnsl and advic e on contraceptionTranssexualismEndocrine disorder, unspecifiedHuman immunodeficiency virus [HIV] counseling [facility] Encounter for oth general cnsl and advic e on contraception Transsexualism Endocrine disorder, unspecified Human immunodeficiency virus [HIV] couns [facility] Outpatient Attender: [facility] 09/26/2019 09:25:01 AM ES T [facility] Medications Medication Brand Name Start Date Product Form Dose Route Admi nistrative Instructions Pharmacy Instructions Status Indications Reaction Description Data Source(s) 2 mg 10/29/2020 12:00:00 AM EST tablet 15 TAKE ONE-HALF TABLET BY MOUTH EVERY DAY TAKE ONE-HALF TABLET BY MOUTH EVERY DAY SOLD: 10/29/2020 [facility] Estradiol 2 MG Oral Tablet estradiol 2 mg tablet estradiol 2 mg tablet 10/12/2020 12:00:00 AM EST active take 0.5 tablet by oral route every day [facility] 20 mg 10/11/2020 12:00:00 AM EST tablet 8 TAKE ONE TABLET BY MOUTH TWO TIMES A DAY FOR 4 DAYS TAKE ONE TABLET BY MOUTH TWO TIMES A DAY FOR 4 DAYS SO LD: 10/11/2020 [facility] doxycycline hyclate 100 MG Oral Capsule DOXYCYCLINE HYCLATE 10/11/2020 12:00:00 AM EST capsule 20 TAKE ONE CAPSULE BY MOUTH TW ICE A DAY FOR 10 DAYS TAKE ONE CAPSULE BY MOUTH TWICE A DAY FOR 10 DAYS SOLD: 10/11/2020 [facility] Prednisone 20 MG Oral Tablet Prednisone 10/11/2020 12:00:00 AM EST ORAL active [facility] ([facility]) Doxycycline Monohydrate 100 MG Oral Tablet Doxycycline Monoh ydrate 10/11/2020 12:00:00 AM EST ORAL active M [facility] ([facility]) 100 unit/mL 09/10/2020 12:00:00 AM EST solution 60 USE DIRECTED WITH PUMP, MAXIMUM DAILY DOSE = 80 UNITS USE DIRECTED WITH PUMP, MAXIMUM DAILY DOSE = 80 UNITS SOLD: 09/10/2020 [facility] 137 mcg 09/08/2020 12:00:00 AM EST tablet 30 TAKE ONE TABLET BY MOUTH EVERY DAY TAKE ONE TABLET BY MOUTH EVERY DAY SOLD: 09/08/2020 [facility] 137 mcg 09/08/2020 12:00:00 AM EST tablet 30 TAKE ONE TABLET BY MOUTH EVERY DAY TAKE ONE TABLET BY MOUTH EVERY DAY SOLD: 10/08/2020 [facility] 2 mg 07/14/2020 12:00:00 AM EDT tablet 60 TAKE ONE TABLET BY MOUTH EVERY DAY, ALLOW TO DISSOLVE UNDER THE TONGUE FOR 30 MINUTES BEFORE SWALLOWING TAKE ONE TABLET BY MOUTH EVERY DAY, ALLOW TO DISSOLVE UNDER THE TONGUE FOR 30 MINUTES BEFORE SWALLOWING SOLD: 07/14/2020 [facility] 2 mg 07/14/2020 12:00:00 AM EDT tablet 60 TAKE ONE TABLET BY MOUTH EVERY DAY, ALLOW TO DISSOLVE UNDER THE TONGUE FOR 30 MINUTES BEFORE SWALLOWING TAKE ONE TABLET BY MOUTH EVERY DAY, ALLOW TO DISSOLVE UNDER THE TONGUE FOR 30 MINUTES BEFORE SWALLOWING SOLD: 09/08/2020 [facility] Estradiol 2 MG Oral Tablet estradiol 2 mg tablet estradiol 2 mg tablet 07/13/2020 12:00:00 AM EDT active take 1 tablet by po daily. Allow to dissolve under the tongue x 30 min before swallowing. [facility] ([facility]) Estradiol 2 MG Oral Tablet estradiol 2 mg tablet estradiol 2 mg tablet 07/13/2020 12:00:00 AM EDT completed take 1 tablet by po daily. Allow to dissolve under the tongue x 30 min before swallowing. [facility] ([facility]) 137 mcg 06/22/2020 12:00:00 AM EDT tablet 30 TAKE ONE TABLET BY MOUTH EVERY DAY TAKE ONE TABLET BY MOUTH EVERY DAY SOLD: 07/17/2020 [facility] 137 mcg 06/22/2020 12:00:00 AM EDT tablet 30 TAKE ONE TABLET BY MOUTH EVERY DAY TAKE ONE TABLET BY MOUTH EVERY DAY SOLD: 06/23/2020 [facility] 137 mcg 06/22/2020 12:00:00 AM EDT tablet 30 TAKE ONE TABLET BY MOUTH EVERY DAY TAKE ONE TABLET BY MOUTH EVERY DAY SOLD: 08/13/2020 [facility] 25 mcg 06/22/2020 12:00:00 AM EDT tablet 30 TAKE ONE TABLET BY MOUTH EVERY DAY TAKE ONE TABLET BY MOUTH EVERY DAY SOLD: 06/23/2020 [facility] 1 ML Leuprolide Acetate 3.75 MG/ML Prefilled Syringe [ Lupron] Lupron Depot (1-Month) 06/20/2020 12:00:00 AM EDT active [facility] ([facility]) Levothyroxine Sodium 0.137 MG Oral Tablet Levothyroxine Sodi um 06/20/2020 12:00:00 AM EDT active M [facility] ([facility]) liothyronine sodium 0.025 MG Oral Tablet Liothyronine Sodium 06/20/2020 12:00:00 AM EDT ORAL completed [facility] ([facility]) 81 mg 06/11/2020 12:00:00 AM EDT tablet,delayed release (DR/EC) 30 TAKE ONE TABLET BY MOUTH EVERY DAY TAKE ONE TABLET BY MOUTH EVERY DAY SOLD: 09/08/2020 [facility] 81 mg 06/11/2020 12:00:00 AM EDT tablet,delayed release (DR/EC) 30 TAKE ONE TABLET BY MOUTH EVERY DAY TAKE ONE TABLET BY MOUTH EVERY DAY SOLD: 08/13/2020 [facility] Finasteride 5 MG Oral Tablet FINASTERIDE 06/11/2020 12:00:00 AM EDT ta blet 60 TAKE ONE TABLET BY MOUTH EVERY DAY TAKE ONE TABLET BY MOUTH EVERY DAY SOLD: 06/11/2020 [facility] 81 mg 06/11/2020 12:00:00 AM EDT tablet,delayed release (DR/EC) 30 TAKE ONE TABLET BY MOUTH EVERY DAY TAKE ONE TABLET BY MOUTH EVERY DAY SOLD: 06/11/2020 [facility] BLOOD SUGAR DIAGNOSTIC 06/11/2020 12:00:00 AM EDT strip 100 USE DIRECTED FOUR TIMES A DAY USE DIRECTED FOUR TIMES A DAY SOLD: 10/08/2020 [facility] BLOOD SUGAR DIAGNOSTIC 06/11/2020 12:00:00 AM EDT strip 100 USE DIRECTED FOUR TIMES A DAY USE DIRECTED FOUR TIMES A DAY SOLD: 09/08/2020 [facility] BLOOD SUGAR DIAGNOSTIC 06/11/2020 12:00:00 AM EDT strip 100 USE DIRECTED FOUR TIMES A DAY USE DIRECTED FOUR TIMES A DAY SOLD: 06/11/2020 [facility] 81 mg 06/11/2020 12:00:00 AM EDT tablet,delayed release (DR/EC) 30 TAKE ONE TABLET BY MOUTH EVERY DAY TAKE ONE TABLET BY MOUTH EVERY DAY SOLD: 10/08/2020 [facility] BLOOD SUGAR DIAGNOSTIC 06/11/2020 12:00:00 AM EDT strip 100 USE DIRECTED FOUR TIMES A DAY USE DIRECTED FOUR TIMES A DAY SOLD: 07/10/2020 [facility] 81 mg 06/11/2020 12:00:00 AM EDT tablet,delayed release (DR/EC) 30 TAKE ONE TABLET BY MOUTH EVERY DAY TAKE ONE TABLET BY MOUTH EVERY DAY SOLD: 07/10/2020 [facility] Lidocaine Lidocaine 06/08/2020 12:00:00 AM EDT TOPICAL completed [facility] ([facility]) Progesterone 100 MG Oral Capsule PROGESTERONE, MICRONIZED 12:00:00 AM EDT capsule 60 TAKE ONE CAPSULE BY MOUTH EVERY EVENING SEQUENTIALLY PER 28 DAY CYCLE TAKE ONE CAPSULE BY MOUTH EVERY EVENING SEQUENTIALLY P ER 28 DAY CYCLE SOLD: 05/21/2020 [facility] Progesterone 100 MG Oral Capsule [Prometrium] Prometri um 100 mg capsule Prometrium 100 mg capsule 05/21/2020 12:00:00 AM EDT 1 {capsule} ORAL active progesterone 100 MG Oral Capsule [Prometrium] [facility] ([facility]) 2.5 mg 05/15/2020 12:00:00 AM EDT tablet 30 TAKE ONE TABLET BY MOUTH EVERY DAY TAKE ONE TABLET BY MOUTH EVERY DAY SOLD: 10/08/2020 [facility] 40 mg 05/15/2020 12:00:00 AM EDT tablet 30 TAKE ONE TABLET BY MOUTH EVERY DAY TAKE ONE TABLET BY MOUTH EVERY DAY SOLD: 09/08/2020 [facility] 25 mg 05/15/2020 12:00:00 AM EDT tablet 15 TAKE 1/2 TABLET BY MOUTH ONCE DAILY TAKE 1/2 TABLET BY MOUTH ONCE DAILY SOLD: 07/10/2020 [facility] 2.5 mg 05/15/2020 12:00:00 AM EDT tablet 30 TAKE ONE TABLET BY MOUTH EVERY DAY TAKE ONE TABLET BY MOUTH EVERY DAY SOLD: 07/10/2020 [facility] 40 mg 05/15/2020 12:00:00 AM EDT tablet 30 TAKE ONE TABLET BY MOUTH EVERY DAY TAKE ONE TABLET BY MOUTH EVERY DAY SOLD: 10/08/2020 [facility] 90 mcg/actuation 05/15/2020 12:00:00 AM EDT HFA aerosol inha ler 18 INHALE TWO PUFFS BY MOUTH EVERY 6 HOURS NEEDED INHALE TWO PUFFS BY MOUTH EVERY 6 HOURS NEEDED SOLD: 05/16/2020 [facility] 40 mg 05/15/2020 12:00:00 AM EDT tablet 30 TAKE ONE TABLET BY MOUTH EVERY DAY TAKE ONE TABLET BY MOUTH EVERY DAY SOLD: 05/16/2020 [facility] 25 mg 05/15/2020 12:00:00 AM EDT tablet 15 TAKE 1/2 TABLET BY MOUTH ONCE DAILY TAKE 1/2 TABLET BY MOUTH ONCE DAILY SOLD: 10/08/2020 [facility] 2.5 mg 05/15/2020 12:00:00 AM EDT tablet 30 TAKE ONE TABLET BY MOUTH EVERY DAY TAKE ONE TABLET BY MOUTH EVERY DAY SOLD: 06/11/2020 [facility] 25 mg 05/15/2020 12:00:00 AM EDT tablet 15 TAKE 1/2 TABLET BY MOUTH ONCE DAILY TAKE 1/2 TABLET BY MOUTH ONCE DAILY SOLD: 09/08/2020 [facility] 2.5 mg 05/15/2020 12:00:00 AM EDT tablet 30 TAKE ONE TABLET BY MOUTH EVERY DAY TAKE ONE TABLET BY MOUTH EVERY DAY SOLD: 05/16/2020 [facility] 40 mg 05/15/2020 12:00:00 AM EDT capsule,delayed release (DR/EC) 30 TAKE ONE CAPSULE BY MOUTH EVERY DAY TAKE ONE CAPSULE BY MOUTH EVERY DAY SOLD: 05/16/2020 [facility] 25 mg 05/15/2020 12:00:00 AM EDT tablet 15 TAKE 1/2 TABLET BY MOUTH ONCE DAILY TAKE 1/2 TABLET BY MOUTH ONCE DAILY SOLD: 08/13/2020 [facility] 40 mg 05/15/2020 12:00:00 AM EDT tablet 30 TAKE ONE TABLET BY MOUTH EVERY DAY TAKE ONE TABLET BY MOUTH EVERY DAY SOLD: 08/13/2020 [facility] 2.5 mg 05/15/2020 12:00:00 AM EDT tablet 30 TAKE ONE TABLET BY MOUTH EVERY DAY TAKE ONE TABLET BY MOUTH EVERY DAY SOLD: 09/08/2020 [facility] 40 mg 05/15/2020 12:00:00 AM EDT tablet 30 TAKE ONE TABLET BY MOUTH EVERY DAY TAKE ONE TABLET BY MOUTH EVERY DAY SOLD: 07/10/2020 [facility] 2.5 mg 05/15/2020 12:00:00 AM EDT tablet 30 TAKE ONE TABLET BY MOUTH EVERY DAY TAKE ONE TABLET BY MOUTH EVERY DAY SOLD: 08/13/2020 [facility] 40 mg 05/15/2020 12:00:00 AM EDT tablet 30 TAKE ONE TABLET BY MOUTH EVERY DAY TAKE ONE TABLET BY MOUTH EVERY DAY SOLD: 06/11/2020 [facility] 40 mg 05/15/2020 12:00:00 AM EDT capsule,delayed release (DR/EC) 30 TAKE ONE CAPSULE BY MOUTH EVERY DAY TAKE ONE CAPSULE BY MOUTH EVERY DAY SOLD: 08/13/2020 [facility] 25 mg 05/15/2020 12:00:00 AM EDT tablet 15 TAKE 1/2 TABLET BY MOUTH ONCE DAILY TAKE 1/2 TABLET BY MOUTH ONCE DAILY SOLD: 05/16/2020 [facility] 40 mg 05/15/2020 12:00:00 AM EDT capsule,delayed release (DR/EC) 30 TAKE ONE CAPSULE BY MOUTH EVERY DAY TAKE ONE CAPSULE BY MOUTH EVERY DAY SOLD: 09/08/2020 [facility] 25 mg 05/15/2020 12:00:00 AM EDT tablet 15 TAKE 1/2 TABLET BY MOUTH ONCE DAILY TAKE 1/2 TABLET BY MOUTH ONCE DAILY SOLD: 06/11/2020 [facility] 40 mg 05/15/2020 12:00:00 AM EDT capsule,delayed release (DR/EC) 30 TAKE ONE CAPSULE BY MOUTH EVERY DAY TAKE ONE CAPSULE BY MOUTH EVERY DAY SOLD: 07/10/2020 [facility] 40 mg 05/15/2020 12:00:00 AM EDT capsule,delayed release (DR/EC) 30 TAKE ONE CAPSULE BY MOUTH EVERY DAY TAKE ONE CAPSULE BY MOUTH EVERY DAY SOLD: 06/11/2020 [facility] 40 mg 05/15/2020 12:00:00 AM EDT capsule,delayed release (DR/EC) 30 TAKE ONE CAPSULE BY MOUTH EVERY DAY TAKE ONE CAPSULE BY MOUTH EVERY DAY SOLD: 10/08/2020 [facility] Estradiol 2 MG Oral Tablet estradiol 2 mg tablet estradiol 2 mg tablet 04/23/2020 12:00:00 AM EDT active take 1 tablet by po daily. Allow to dissolve under the tongue x 30 min before swallowing. [facility] ([facility]) Finasteride 5 MG Oral Tablet finasteride 5 mg tablet finaste ride 5 mg tablet 04/23/2020 12:00:00 AM EDT 1.00 {tablet} ORAL complet ed take 1 tablet by oral route every day [facility] ([facility]) Eflornithine 139 MG/ML Topical Cream [Vaniqa] Vaniqa 1 3.9 % topical cream Vaniqa 13.9 % topical cream 03/28/2020 12:00:00 AM EDT active eflornithine 139 MG/ML Topical Cream [Vaniqa] [facility] Progesterone 100 MG Oral Capsule PROGESTERONE, MICRONIZED 12:00:00 AM EDT capsule 60 TAKE ONE CAPSULE BY MOUTH ONCE DAILY FOR 62 DAYS IN THE EVENING SEQUENTIALLY PER 28 DAY CYCLE TAKE ONE CAPSULE BY MOUTH ONCE DAILY FOR 62 DAYS IN THE EVENING SEQUENTIALLY PER 28 DAY CYCLE SOLD: 03/27/2020 [facility] Progesterone 100 MG Oral Capsule [Prometrium] Prometri um 100 mg capsule Prometrium 100 mg capsule 03/27/2020 12:00:00 AM EDT 1 {capsule} ORAL completed progesterone 100 MG Oral Capsule [Prometrium] [facility] Estradiol 2 MG Oral Tablet estradiol 2 mg tablet estradiol 2 mg tablet 03/27/2020 12:00:00 AM EDT completed take 1 tablet by po daily. Allow to dissolve under the tongue x 30 min before swallowing. [facility] 100 unit/mL 03/12/2020 12:00:00 AM EDT solution 60 USE DIRECTED WITH PUMP, MAXIMUM DAILY DOSE = 80 UNITS USE DIRECTED WITH PUMP, MAXIMUM DAILY DOSE = 80 UNITS SOLD: 03/12/2020 [facility] 100 unit/mL 03/12/2020 12:00:00 AM EDT solution 50 USE DIRECTED WITH PUMP, MAXIMUM DAILY DOSE = 80 UNITS USE DIRECTED WITH PUMP, MAXIMUM DAILY DOSE = 80 UNITS SOLD: 06/13/2020 [facility] Estradiol 2 MG Oral Tablet estradiol 2 mg tablet estradiol 2 mg tablet 02/23/2020 12:00:00 AM EDT active take 1 tablet by po daily. Allow to dissolve under the tongue x 30 min before swallowing. [facility] 2 mg 02/23/2020 12:00:00 AM EDT tablet 30 TAKE ONE TABLET BY MOUTH EVERY DAY, ALLOW TO DISSOLVE UNDER THE TONGUE FOR 30 MINUTES BEFORE SWALLOWING TAKE ONE TABLET BY MOUTH EVERY DAY, ALLOW TO DISSOLVE UNDER THE TONGUE FOR 30 MINUTES BEFORE SWALLOWING SOLD: 02/27/2020 [facility] 90 mcg/actuation 02/10/2020 12:00:00 AM EDT HFA aerosol inha ler 18 INHALE TWO PUFFS BY MOUTH EVERY 6 HOURS NEEDED INHALE TWO PUFFS BY MOUTH EVERY 6 HOURS NEEDED SOLD: 03/12/2020 [facility] 90 mcg/actuation 02/10/2020 12:00:00 AM EDT HFA aerosol inha ler 18 INHALE TWO PUFFS BY MOUTH EVERY 6 HOURS NEEDED INHALE TWO PUFFS BY MOUTH EVERY 6 HOURS NEEDED SOLD: 02/10/2020 [facility] 90 mcg/actuation 02/10/2020 12:00:00 AM EDT HFA aerosol inha ler 18 INHALE TWO PUFFS BY MOUTH EVERY 6 HOURS NEEDED INHALE TWO PUFFS BY MOUTH EVERY 6 HOURS NEEDED SOLD: 04/10/2020 [facility] 81 mg 01/13/2020 12:00:00 AM EDT tablet,delayed release (DR/EC) 30 TAKE ONE TABLET BY MOUTH EVERY DAY TAKE ONE TABLET BY MOUTH EVERY DAY SOLD: 05/16/2020 [facility] 81 mg 01/13/2020 12:00:00 AM EDT tablet,delayed release (DR/EC) 30 TAKE ONE TABLET BY MOUTH EVERY DAY TAKE ONE TABLET BY MOUTH EVERY DAY SOLD: 04/10/2020 [facility] 81 mg 01/13/2020 12:00:00 AM EDT tablet,delayed release (DR/EC) 30 TAKE ONE TABLET BY MOUTH EVERY DAY TAKE ONE TABLET BY MOUTH EVERY DAY SOLD: 03/12/2020 [facility] 25 mg 01/13/2020 12:00:00 AM EDT tablet 15 TAKE 1/2 TABLET BY MOUTH ONCE DAILY TAKE 1/2 TABLET BY MOUTH ONCE DAILY SOLD: 01/13/2020 [facility] 40 mg 01/13/2020 12:00:00 AM EDT capsule,delayed release (DR/EC) 30 TAKE ONE CAPSULE BY MOUTH EVERY DAY TAKE ONE CAPSULE BY MOUTH EVERY DAY SOLD: 02/13/2020 [facility] 2.5 mg 01/13/2020 12:00:00 AM EDT tablet 30 TAKE ONE TABLET BY MOUTH EVERY DAY TAKE ONE TABLET BY MOUTH EVERY DAY SOLD: 01/13/2020 [facility] 40 mg 01/13/2020 12:00:00 AM EDT capsule,delayed release (DR/EC) 30 TAKE ONE CAPSULE BY MOUTH EVERY DAY TAKE ONE CAPSULE BY MOUTH EVERY DAY SOLD: 01/13/2020 [facility] 40 mg 01/13/2020 12:00:00 AM EDT tablet 30 TAKE ONE TABLET BY MOUTH EVERY DAY TAKE ONE TABLET BY MOUTH EVERY DAY SOLD: 03/12/2020 [facility] 40 mg 01/13/2020 12:00:00 AM EDT tablet 30 TAKE ONE TABLET BY MOUTH EVERY DAY TAKE ONE TABLET BY MOUTH EVERY DAY SOLD: 02/13/2020 [facility] 2.5 mg 01/13/2020 12:00:00 AM EDT tablet 30 TAKE ONE TABLET BY MOUTH EVERY DAY TAKE ONE TABLET BY MOUTH EVERY DAY SOLD: 02/13/2020 [facility] 40 mg 01/13/2020 12:00:00 AM EDT tablet 30 TAKE ONE TABLET BY MOUTH EVERY DAY TAKE ONE TABLET BY MOUTH EVERY DAY SOLD: 01/13/2020 [facility] 40 mg 01/13/2020 12:00:00 AM EDT capsule,delayed release (DR/EC) 30 TAKE ONE CAPSULE BY MOUTH EVERY DAY TAKE ONE CAPSULE BY MOUTH EVERY DAY SOLD: 04/10/2020 [facility] 40 mg 01/13/2020 12:00:00 AM EDT capsule,delayed release (DR/EC) 30 TAKE ONE CAPSULE BY MOUTH EVERY DAY TAKE ONE CAPSULE BY MOUTH EVERY DAY SOLD: 03/12/2020 [facility] 40 mg 01/13/2020 12:00:00 AM EDT tablet 30 TAKE ONE TABLET BY MOUTH EVERY DAY TAKE ONE TABLET BY MOUTH EVERY DAY SOLD: 04/10/2020 [facility] 25 mg 01/13/2020 12:00:00 AM EDT tablet 15 TAKE 1/2 TABLET BY MOUTH ONCE DAILY TAKE 1/2 TABLET BY MOUTH ONCE DAILY SOLD: 04/10/2020 [facility] 2.5 mg 01/13/2020 12:00:00 AM EDT tablet 30 TAKE ONE TABLET BY MOUTH EVERY DAY TAKE ONE TABLET BY MOUTH EVERY DAY SOLD: 04/10/2020 [facility] 25 mg 01/13/2020 12:00:00 AM EDT tablet 15 TAKE 1/2 TABLET BY MOUTH ONCE DAILY TAKE 1/2 TABLET BY MOUTH ONCE DAILY SOLD: 03/12/2020 [facility] 25 mg 01/13/2020 12:00:00 AM EDT tablet 15 TAKE 1/2 TABLET BY MOUTH ONCE DAILY TAKE 1/2 TABLET BY MOUTH ONCE DAILY SOLD: 02/13/2020 [facility] 2.5 mg 01/13/2020 12:00:00 AM EDT tablet 30 TAKE ONE TABLET BY MOUTH EVERY DAY TAKE ONE TABLET BY MOUTH EVERY DAY SOLD: 03/12/2020 [facility] 81 mg 01/13/2020 12:00:00 AM EDT tablet,delayed release (DR/EC) 30 TAKE ONE TABLET BY MOUTH EVERY DAY TAKE ONE TABLET BY MOUTH EVERY DAY SOLD: 01/13/2020 [facility] BLOOD SUGAR DIAGNOSTIC 12/30/2019 12:00:00 AM EDT strip 100 USE DIRECTED FOUR TIMES A DAY USE DIRECTED FOUR TIMES A DAY SOLD: 01/04/2020 [facility] BLOOD SUGAR DIAGNOSTIC 12/30/2019 12:00:00 AM EDT strip 100 USE DIRECTED FOUR TIMES A DAY USE DIRECTED FOUR TIMES A DAY SOLD: 03/12/2020 [facility] BLOOD SUGAR DIAGNOSTIC 12/30/2019 12:00:00 AM EDT strip 100 USE DIRECTED FOUR TIMES A DAY USE DIRECTED FOUR TIMES A DAY SOLD: 04/10/2020 [facility] 5 mg 12/21/2019 12:00:00 AM EDT tablet 30 TAKE ONE TABLET BY MOUTH EVERY DAY TAKE ONE TABLET BY MOUTH EVERY DAY SOLD: 01/23/2020 [facility] 2 mg 12/21/2019 12:00:00 AM EDT tablet 45 TAKE 1 & 1/2 TABLETS BY MOUTH ONCE DAILY ALLOW TO DISSOLVE UNDER TONGUE FOR 30 MINUTES BEFORE SWALLOWING TAKE 1 & 1/2 TABLETS BY MOUTH ONCE DAILY ALLOW TO DISSOLVE UNDER TONGUE FOR 30 MINUTES BEFORE SWALLOWING SOLD: 01/23/2020 [facility] [facility] Progesterone 100 MG Oral Capsule PROGESTERONE, MICRONIZED 12:00:00 AM EDT capsule 30 TAKE ONE CAPSULE BY MOUTH EV NIYAH EVENING TAKE ONE CAPSULE BY MOUTH EVERY EVENING SOLD: 02/27/2020 [facility] Progesterone 100 MG Oral Capsule PROGESTERONE, MICRONIZED 12:00:00 AM EDT capsule 30 TAKE ONE CAPSULE BY MOUTH EV NIYAH EVENING TAKE ONE CAPSULE BY MOUTH EVERY EVENING SOLD: 01/23/2020 [facility] Finasteride 5 MG Oral Tablet FINASTERIDE 12/21/2019 12:00:00 AM EDT ta blet 30 TAKE ONE TABLET BY MOUTH EVERY DAY TAKE ONE TABLET BY MOUTH EVERY DAY SOLD: 04/10/2020 [facility] 100 mg 12/21/2019 12:00:00 AM EDT capsule 30 TAKE ONE CAPSULE BY MOUTH EVERY EVENING TAKE ONE CAPSULE BY MOUTH EVERY EVENING SOLD: 12/25/2019 [facility] 5 mg 12/21/2019 12:00:00 AM EDT tablet 30 TAKE ONE TABLET BY MOUTH EVERY DAY TAKE ONE TABLET BY MOUTH EVERY DAY SOLD: 03/12/2020 [facility] 2 mg 12/21/2019 12:00:00 AM EDT tablet 45 TAKE 1 & 1/2 TABLETS BY MOUTH ONCE DAILY ALLOW TO DISSOLVE UNDER TONGUE FOR 30 MINUTES BEFORE SWALLOWING TAKE 1 & 1/2 TABLETS BY MOUTH ONCE DAILY ALLOW TO DISSOLVE UNDER TONGUE FOR 30 MINUTES BEFORE SWALLOWING SOLD: 04/23/2020 [facility] Finasteride 5 MG Oral Tablet finasteride 5 mg tablet finaste ride 5 mg tablet 12/21/2019 12:00:00 AM EDT 1.00 {tablet} ORAL active take 1 tablet by oral route every day [facility] ([facility]) 5 mg 12/21/2019 12:00:00 AM EDT tablet 30 TAKE ONE TABLET BY MOUTH EVERY DAY TAKE ONE TABLET BY MOUTH EVERY DAY SOLD: 12/25/2019 [facility] Progesterone 100 MG Oral Capsule [Prometrium] Prometri um 100 mg capsule Prometrium 100 mg capsule 12/21/2019 12:00:00 AM EDT 1 {capsule} ORAL completed Progesterone 100 MG Oral Capsule [Prometrium] [facility] ([facility]) Estradiol 2 MG Oral Tablet estradiol 2 mg tablet estradiol 2 mg tablet 12/21/2019 12:00:00 AM EDT completed take 1.5 tablet by po daily. Allow to dissolve under the tongue x 30 min before swallowing. [facility] ([facility]) 2 mg 12/21/2019 12:00:00 AM EDT tablet 45 TAKE 1 & 1/2 TABLETS BY MOUTH ONCE DAILY ALLOW TO DISSOLVE UNDER TONGUE FOR 30 MINUTES BEFORE SWALLOWING TAKE 1 & 1/2 TABLETS BY MOUTH ONCE DAILY ALLOW TO DISSOLVE UNDER TONGUE FOR 30 MINUTES BEFORE SWALLOWING SOLD: 12/25/2019 [facility] Progesterone 100 MG Oral Capsule PROGESTERONE, MICRONIZED 12:00:00 AM EST capsule 30 TAKE ONE CAPSULE BY MOUTH EV NIYAH EVENING TAKE ONE CAPSULE BY MOUTH EVERY EVENING SOLD: 09/30/2019 [facility] Progesterone 100 MG Oral Capsule PROGESTERONE, MICRONIZED 12:00:00 AM EST capsule 30 TAKE ONE CAPSULE BY MOUTH EV NIYAH EVENING TAKE ONE CAPSULE BY MOUTH EVERY EVENING SOLD: 11/25/2019 [facility] Progesterone 100 MG Oral Capsule PROGESTERONE, MICRONIZED 12:00:00 AM EST capsule 30 TAKE ONE CAPSULE BY MOUTH EV NIYAH EVENING TAKE ONE CAPSULE BY MOUTH EVERY EVENING SOLD: 10/27/2019 [facility] 2 mg 09/28/2019 12:00:00 AM EST tablet 60 DISSOLVE 1 & 1/2 TABLETS UNDER THE TONGUE FOR 30 MINUTES & SWALLOW 2 TIMES A DAY DISSOLVE 1 & 1/2 TABLETS UNDER THE TONGUE FOR 30 MINUTES & SWALLOW 2 TIMES A DAY SOLD: 09/28/2019 [facility] 5 mg 09/28/2019 12:00:00 AM EST tablet 30 TAKE ONE TABLET BY MOUTH EVERY DAY TAKE ONE TABLET BY MOUTH EVERY DAY SOLD: 09/28/2019 [facility] 5 mg 09/28/2019 12:00:00 AM EST tablet 30 TAKE ONE TABLET BY MOUTH EVERY DAY TAKE ONE TABLET BY MOUTH EVERY DAY SOLD: 12/06/2019 [facility] Estradiol 2 MG Oral Tablet estradiol 2 mg tablet estradiol 2 mg tablet 09/28/2019 12:00:00 AM EST completed take 1.5 tablet by po bid. Allow to dissolve under the tongue x 30 min before swallowing. [facility] ([facility]) 5 mg 09/28/2019 12:00:00 AM EST tablet 30 TAKE ONE TABLET BY MOUTH EVERY DAY TAKE ONE TABLET BY MOUTH EVERY DAY SOLD: 11/07/2019 [facility] Finasteride 5 MG Oral Tablet FINASTERIDE 09/28/2019 12:00:00 AM EST ta blet 30 TAKE ONE TABLET BY MOUTH EVERY DAY TAKE ONE TABLET BY MOUTH EVERY DAY SOLD: 05/07/2020 [facility] Finasteride 5 MG Oral Tablet finasteride 5 mg tablet finaste ride 5 mg tablet 09/28/2019 12:00:00 AM EST 1.00 {tablet} ORAL complet ed take 1 tablet by oral route every day [facility] ([facility]) 100 unit/mL 08/24/2019 12:00:00 AM EST solution 60 USE DIRECTED WITH PUMP , MAXIMUM DAILY DOSE = 80 UNITS USE DIRECTED WITH PUMP , MAXIMUM SIRI Y DOSE = 80 UNITS SOLD: 12/06/2019 [facility] Simvastatin 40 MG Oral Tablet SIMVASTATIN 07/16/2019 12:00:00 AM EDT tablet 30 TAKE ONE TABLET BY MOUTH EVERY DAY TAKE ONE TABLET BY MOUTH EVERY DAY SOLD: 11/10/2019 [facility] 40 mg 07/16/2019 12:00:00 AM EDT tablet 30 TAKE ONE TABLET BY MOUTH EVERY DAY TAKE ONE TABLET BY MOUTH EVERY DAY SOLD: 12/06/2019 [facility] 2.5 mg 07/16/2019 12:00:00 AM EDT tablet 30 TAKE ONE TABLET BY MOUTH EVERY DAY TAKE ONE TABLET BY MOUTH EVERY DAY SOLD: 11/10/2019 [facility] 40 mg 07/16/2019 12:00:00 AM EDT capsule,delayed release (DR/EC) 30 TAKE ONE CAPSULE BY MOUTH EVERY DAY TAKE ONE CAPSULE BY MOUTH EVERY DAY SOLD: 11/10/2019 [facility] 40 mg 07/16/2019 12:00:00 AM EDT capsule,delayed release (DR/EC) 30 TAKE ONE CAPSULE BY MOUTH EVERY DAY TAKE ONE CAPSULE BY MOUTH EVERY DAY SOLD: 12/06/2019 [facility] 2.5 mg 07/16/2019 12:00:00 AM EDT tablet 30 TAKE ONE TABLET BY MOUTH EVERY DAY TAKE ONE TABLET BY MOUTH EVERY DAY SOLD: 09/19/2019 [facility] Simvastatin 40 MG Oral Tablet SIMVASTATIN 07/16/2019 12:00:00 AM EDT tablet 30 TAKE ONE TABLET BY MOUTH EVERY DAY TAKE ONE TABLET BY MOUTH EVERY DAY SOLD: 09/19/2019 [facility] Simvastatin 40 MG Oral Tablet SIMVASTATIN 07/16/2019 12:00:00 AM EDT tablet 30 TAKE ONE TABLET BY MOUTH EVERY DAY TAKE ONE TABLET BY MOUTH EVERY DAY SOLD: 10/15/2019 [facility] 2.5 mg 07/16/2019 12:00:00 AM EDT tablet 30 TAKE ONE TABLET BY MOUTH EVERY DAY TAKE ONE TABLET BY MOUTH EVERY DAY SOLD: 10/15/2019 [facility] 40 mg 07/16/2019 12:00:00 AM EDT capsule,delayed release (DR/EC) 30 TAKE ONE CAPSULE BY MOUTH EVERY DAY TAKE ONE CAPSULE BY MOUTH EVERY DAY SOLD: 09/19/2019 [facility] 2.5 mg 07/16/2019 12:00:00 AM EDT tablet 30 TAKE ONE TABLET BY MOUTH EVERY DAY TAKE ONE TABLET BY MOUTH EVERY DAY SOLD: 12/06/2019 [facility] 40 mg 07/16/2019 12:00:00 AM EDT capsule,delayed release (DR/EC) 30 TAKE ONE CAPSULE BY MOUTH EVERY DAY TAKE ONE CAPSULE BY MOUTH EVERY DAY SOLD: 10/15/2019 [facility] 25 mg 07/15/2019 12:00:00 AM EDT tablet 15 TAKE 1/2 TABLET BY MOUTH ONCE DAILY TAKE 1/2 TABLET BY MOUTH ONCE DAILY SOLD: 10/15/2019 [facility] 25 mg 07/15/2019 12:00:00 AM EDT tablet 15 TAKE 1/2 TABLET BY MOUTH ONCE DAILY TAKE 1/2 TABLET BY MOUTH ONCE DAILY SOLD: 11/10/2019 [facility] 25 mg 07/15/2019 12:00:00 AM EDT tablet 15 TAKE 1/2 TABLET BY MOUTH ONCE DAILY TAKE 1/2 TABLET BY MOUTH ONCE DAILY SOLD: 09/19/2019 [facility] 25 mg 07/15/2019 12:00:00 AM EDT tablet 15 TAKE 1/2 TABLET BY MOUTH ONCE DAILY TAKE 1/2 TABLET BY MOUTH ONCE DAILY SOLD: 12/06/2019 [facility] 2 mg 06/09/2019 12:00:00 AM EDT tablet 90 TAKE ONE AND ONE-HALF TABLETS BY MOUTH TWICE A DAY, ALLOW TO DISSOLVE UNDER THE TONGUE FOR 30 MINUTES BEFORE SWALLOWING TAKE ONE AND ONE-HALF TABLETS BY MOUTH T WICE A DAY, ALLOW TO DISSOLVE UNDER THE TONGUE FOR 30 MINUTES BEFORE SWALLOWING SOLD: 11/28/2019 [facility] 2 mg 06/09/2019 12:00:00 AM EDT tablet 90 TAKE ONE AND ONE-HALF TABLETS BY MOUTH TWICE A DAY, ALLOW TO DISSOLVE UNDER THE TONGUE FOR 30 MINUTES BEFORE SWALLOWING TAKE ONE AND ONE-HALF TABLETS BY MOUTH T WICE A DAY, ALLOW TO DISSOLVE UNDER THE TONGUE FOR 30 MINUTES BEFORE SWALLOWING SOLD: 10/15/2019 [facility] BLOOD SUGAR DIAGNOSTIC 05/25/2019 12:00:00 AM EDT strip 100 USE DIRECTED FOUR TIMES A DAY USE DIRECTED FOUR TIMES A DAY SOLD: 10/15/2019 [facility] BLOOD SUGAR DIAGNOSTIC 05/25/2019 12:00:00 AM EDT strip 100 USE DIRECTED FOUR TIMES A DAY USE DIRECTED FOUR TIMES A DAY SOLD: 11/10/2019 [facility] 81 mg 03/20/2019 12:00:00 AM EDT tablet,delayed release (DR/EC) 30 TAKE ONE TABLET BY MOUTH EVERY DAY TAKE ONE TABLET BY MOUTH EVERY DAY SOLD: 11/10/2019 [facility] 81 mg 03/20/2019 12:00:00 AM EDT tablet,delayed release (DR/EC) 30 TAKE ONE TABLET BY MOUTH EVERY DAY TAKE ONE TABLET BY MOUTH EVERY DAY SOLD: 10/15/2019 [facility] 81 mg 03/20/2019 12:00:00 AM EDT tablet,delayed release (DR/EC) 30 TAKE ONE TABLET BY MOUTH EVERY DAY TAKE ONE TABLET BY MOUTH EVERY DAY SOLD: 09/19/2019 [facility] 81 mg 03/20/2019 12:00:00 AM EDT tablet,delayed release (DR/EC) 30 TAKE ONE TABLET BY MOUTH EVERY DAY TAKE ONE TABLET BY MOUTH EVERY DAY SOLD: 12/06/2019 [facility] 81 mg 03/20/2019 12:00:00 AM EDT tablet,delayed release (DR/EC) 30 TAKE ONE TABLET BY MOUTH EVERY DAY TAKE ONE TABLET BY MOUTH EVERY DAY SOLD: 01/13/2020 [facility] Progesterone 100 MG Oral Capsule progesterone microniz ed 100 mg capsule progesterone micronized 100 mg capsule 2.00 {capsule} ORAL completed take 2 capsule by oral route every day for 12 days in the evening sequentially per 28 day cycle [facility] ([facility]) Estradiol 2 MG Oral Tablet estradiol 2 mg tablet estradiol 2 mg tab let 1 {tablet} ORAL completed take 1 tablet by oral route every day [facility] ([facility]) Finasteride 5 MG Oral Tablet finasteride 5 mg tablet finasteride 5 mg tablet 0.5 {tablet} ORAL completed take 0.5 tablet by oral route every day [facility] ([facility]) Insurance Providers Payer name Policy type / Coverage type Policy ID Covered green party ID Covered green party's relationship to herrera Policy Herrera Plan Information [facility] MCDO [id number] SP [id number] [facility] MMC [id number] self NYCDP [facility] MCDO [id number] SP [id number] [facility] I [id number] Self [id number] Managed Care - [facility] Community Plan P [id number] S [id number] Medicaid S [id number] S [id number] [facility] O [id number] S [id number] [place] [id number] SP [id number] MEDICAID [id number] SP [id number] Managed Care - [facility] [employer] P [id number] S [id number] Managed Care - [employer] P [id number] S [id number] Medicaid S [id number] S [id number] [place] [id number] Self [id number] [facility] Community Plan Medigap Part B [id number] Self [id number] [facility] Community Plan Commercial [id number] Self [id number] [place]ig[place] [id number] Self [id number] [place]ig[place] [id number] Self [id number] Managed Care - [employer] P [id number] S [id number] Medicaid S [id number] S [id number] [facility] Hmo Commercial [id number] Self [id number] [place] [id number] Self [id number] [place]ig[place] [id number] Self [id number] [place] [id number] Self [id number] [place] [id number] Self [id number] MEDICAID M [id number] S [id number] United [facility]) [id number] Self [id number] Managed Care - [employer] P [id number] S [id number] Medicaid S [id number] [place] [id number] [place] Med[place] [id number] Self [id number] United CR/Community [facility]) [id number] [id number] [facility]) [id number] Self [id number] [employer] Hmo Commercial [id number] Self [id number] [place] [id number] Self [id number] [place] Med[place] [id number] Self [id number] [facility] [id number] SP [id number] [facility] Medicaid [id number] Self [id number] [facility] Community Plan Medigap Part B Self [facility] Community Plan Commercial Self [place] Self Managed Care - [facility] P [id number] S [id number] Medicaid S [id number] S [id number] Managed Care - [employer] [facility] P [id number] S [id number] [facility] Community Plan Commercial Self Self Pay P [id number] S [id number] Self Pay P UNAVAILABLE S UNAVAILA BLE Managed Care [facility] P [id number] S [id number] [facility] [id number] SP [id number] [facility] Care [facility] P [id number] S [id number] [facility] Care [facility] P [id number] S [id number] Medicaid S [id number] S [id number] [facility] Care - [facility] Plan [facility] P [id number] S [id number] Medicaid S [id number] S [id number] [facility] Care [facility] O [id number] S [id number] Medicaid S UNAVAILABLE S UNAVAILA BLE [id number] Problems, Conditions, and Diagnoses Code Display Name Description Problem Type Effective Dates Data Source(s) 20959834 Type 2 diabetes mellitus Type 2 diabetes mellitus Prob louise 07/13/2020 12:00:00 AM EDT [facility] [id number] Disorder of thyroid gland Disorder of thyroid gland Pr oblem 07/13/2020 12:00:00 AM EDT [facility] ([facility]) [id number] Hyperlipidemia Hyperlipidemia Problem 07/13/2020 12:00: 00 AM EDT [facility] ([facility]) [id number] Type 1 diabetes mellitus without complic ation Type 1 Diabetes Mellitus without Complication Problem 07/05/2020 05:41:32 PM EDT [facility]) [id number] Acute ST segment elevation myocardial in farction Acute ST Segment Elevation Myocardial Infarction Problem 07/05/2020 05:41:32 PM EDT A THENA ([facility]) [id number] Type 1 diabetes mellitus without complic ation Type 1 Diabetes Mellitus without Complication Problem 07/05/2020 05:41:32 PM EDT JOVON ([facility]) [id number] Acute ST segment elevation myocardial in farction Acute ST Segment Elevation Myocardial Infarction Problem 07/05/2020 05:41:32 PM EDT A THENA ([facility]) [id number] Clinical finding Clinical Finding Problem 07/05/2020 05 :41:32 PM EDT [place] ([facility]) [id number] Acute ST segment elevation myocardial in farction Acute ST Segment Elevation Myocardial Infarction Problem 07/05/2020 05:41:32 PM EDT Loli ANNE ([facility]) V76.44 Screening exam for prostate cancer Screening exam for prostate cancer 01/18/2020 10:47:16 AM EDT [facility] F64.9 Gender identity disorder, unspecified Ge nder identity disorder, unspecified 01/18/2020 10:47:16 AM EDT [facility] [id number] Screening for malignant neoplasm of pros lemus Screening for Malignant Neoplasm of Prostate Problem 01/18/2020 12:00:00 AM EDT [place] ([facility]) [id number] Screening for malignant neoplasm of pros lemus Screening for Malignant Neoplasm of Prostate Problem 01/18/2020 12:00:00 AM EDT [place] ([facility]) [id number] Screening for malignant neoplasm of pros lemus Screening for Malignant Neoplasm of Prostate Problem 01/18/2020 12:00:00 AM EDT [place] ([facility]) [id number] Hammer toe Hammer toe Problem 11/11/2019 12:00:00 AM ES T [facility] ([facility] [id number] Clinical finding Clinical Finding Problem 014 12:00:00 AM EDT - 07/11/2020 12:00:00 AM EDT JOV[facility] ([facility]) [id number] Clinical finding Clinical Finding Problem 014 12:00:00 AM EDT - 07/11/2020 12:00:00 AM EDT [place] ([facility]) Surgeries/Procedures Procedure Description Date Indications Data Source(s) CVR Group Teacher.Svc. STI / H 10/12/2020 12:00:00 AM EST - 10/12/2020 12:00:00 AM EST [facility] ([facility]) EST PT TG DETAILED 10/12/2020 12:00:00 AM EST - 2020 12:00:00 AM EST [facility] ([facility]) Amb Glucose Monitoring Interpretation And Report 09/20 12:00:00 AM EST [facility] ([facility]) TG PHONE EST PT E/M BY PHYS 11-20 MIN 1 12:00:00 AM EDT - 07/13/2020 12:00:00 AM EDT [facility] ([facility]) Radiopharmaceutical Therapy By Oral Administration 04/10/2020 12:00:00 AM EDT [facility] ([facility]) Amb Glucose Monitoring Interpretation And Report 04/10 12:00:00 AM EDT [facility] ([facility]) CVR Group Teacher.Svc. STI / H 02/23/2020 12:00:00 AM EDT - 02/23/2020 12:00:00 AM EDT [facility] ([facility]) CVR Group Teacher.Svc. Other 02/23/2020 12:00:00 AM EDT - 2019 12:00:00 AM EDT [facility] ([facility]) CVR Med.Svc. Other 02/23/2020 12:00:00 AM EDT - 2019 12:00:00 AM EDT [facility] ([facility]) EST PT TG EXP PROB FOCUSED 02/23/2020 12 :00:00 AM EDT - 02/23/2020 12:00:00 AM EDT [facility] ([facility]) CVR Group Teacher.Svc. STI / H 02/09/2020 12:00:00 AM EDT - 02/09/2020 12:00:00 AM EDT [facility] ([facility]) CVR Group Teacher.Svc. Other 02/09/2020 12:00:00 AM EDT - 2019 12:00:00 AM EDT [facility] ([facility]) CVR Med.Svc. Other 02/09/2020 12:00:00 AM EDT - 2019 12:00:00 AM EDT [facility] ([facility]) EST PT TG EXP PROB FOCUSED 02/09/2020 12 :00:00 AM EDT - 02/09/2020 12:00:00 AM EDT [facility] ([facility]) CVR Group Teacher.Svc. Abstinence Skills 0 12:00:00 AM EDT - 12/21/2019 12:00:00 AM EDT [facility] ([facility]) CVR Group Teacher.Svc. Other 12/21/2019 12:00:00 AM EDT - 2019 12:00:00 AM EDT [facility] ([facility]) CVR Group Teacher.Svc. Nutrition 12/21/2019 12:00: 00 AM EDT - 12/21/2019 12:00:00 AM EDT [facility] ([facility]) CVR Group Teacher.Svc. Contraceptive 12/21/2019 12 :00:00 AM EDT - 12/21/2019 12:00:00 AM EDT [facility] ([facility]) CVR Med.Svc. Height/Weight 12/21/2019 12 :00:00 AM EDT - 12/21/2019 12:00:00 AM EDT [facility] ([facility]) CVR Blood Pressure 12/21/2019 12:00:00 AM EDT - 2019 12:00:00 AM EDT [facility] ([facility]) CVR Med.Svc. Other 12/21/2019 12:00:00 AM EDT - 2019 12:00:00 AM EDT [facility] ([facility]) HCS Without Test 12/21/2019 12:00:00 AM EDT - 12/21/19 20 12:00:00 AM EDT [facility] ([facility]) EST PT TG PROBLEM FOCUSED 12/21/2019 12: 00:00 AM EDT - 12/21/2019 12:00:00 AM EDT [facility] ([facility]) Amb Glucose Monitoring Interpretation And Report 12/19 12:00:00 AM EDT [facility] ([facility]) Results ID Date Data Source [id number] 10/31/2020 12:00:00 PM EST [facility] Name Value Range Interpretation Code Description Data Whit rce(s) Supporting Document(s) SARS coronavirus 2 RNA Not Detected [facility] [place] This lab was ordered by [facility] and reported by [facility]. ID Date Data Source [id number] 10/11/2020 12:00:00 AM EST [facility] Name Value Range Interpretation Code Description Data Whit rce(s) Supporting Document(s) SARS coronavirus 2 Ag Negative [facility] This lab was ordered by [facility] and reported by [facility]. ID Date Data Source [id number] 09/24/2020 02:54:00 PM EST [facility] ([facility]) Name Value Range Interpretation Code Description Data Whit rce(s) Supporting Document(s) Testosterone [Mass/volume] in Serum or Plasma 15 ng/dL [id number] [facility] ([facility]) NORMAL RANGES ARE FOR ADULT FEMALES (OVE R 15 YRS) AND MALES (OVER 19 YRS). FOR PEDIATRIC RANGES PLE ASE CONSULT LITERATURE. Follitropin [Units/volume] in Serum or Plasma 0.8 mIU/mL 1.4-18.1 [facility] ([facility]) Lutropin [Moles/volume] in Serum or Plasma 0.1 mIU/mL 1.5-9.3 [facility] ([facility]) ID Date Data Source [id number] 09/24/2020 02:54:00 PM EST [facility] ([facility]) Name Value Range Interpretation Code Description Data Whit rce(s) Supporting Document(s) Glucose, Fasting 246 mg/dL 70-100 [facility] ([facility]) Blood Urea Nitrogen 17 mg/dL 7-18 [facility] ([facility] ) Glomerular Filtration Rate Laboratory test result [facility] ([facility]) <content>Units are mL/min/1.73 m2</content>
<content></content>
<content>Chronic Kidney Disease Staging per NKF:</content>
<content></content>
<content>Stage I & II GFR >=60 Normal to Mildly Decreased</content>
<content>Stage III GFR 30- 59 Moderately Decreased</content>
<content>Stage IV GFR 15-29 Severely Decreased</content>
<content>Stage V GFR <15 Very Little GFR Left</content>
<content>ESRD GFR <15 on AIRCRAFT SEAT UPHOLSTERER</content>
<content></content> Creatinine For GFR 0.96 mg/dL 0.70-1.30 [facility] ([facility]) Sodium Level 137 meq/L 136-145 [facility] ([facility]) Chloride Level 104 meq/L 98-107 [facility]) Carbon Dioxide Level 28 meq/L 21-32 [facility] ([facility]) Potassium Serum 4.3 meq/L 3.5-5.1 [facility] ([facility]) Calcium Level 8.6 mg/dL 8.5-10.1 [facility] ([facility]) Anion Gap 5 meq/L 8-16 [facility] ([facility]) ID Date Data Source [id number] 09/24/2020 02:54:00 PM EST [facility] ([facility]) Name Value Range Interpretation Code Description Data Whit rce(s) Supporting Document(s) Laboratory test finding (navigational concept) 235 pg/mL 15-65 [facility] ([facility]) Estradiol 83.5 pg/mL 7.6-42.6 [facility] ([facility]) Salo ECLIA methodology Performed at: [facility] [id number] Senior Paralegal: Marlys Jin MD, Phone: [phone] Performed at: [facility] [id number] Senior Paralegal: Gladis Paul MD, Phone: [phone] ID Date Data Source [id number] 09/24/2020 02:54:00 PM EST [facility] ([facility]) Name Value Range Interpretation Code Description Data Whit rce(s) Supporting Document(s) Thyrotropin [Units/volume] in Serum or Plasma 1.420 uIU/ML 0.358-3.74 0 [facility] ([facility]) Thyroxine (T4) free [Mass/volume] in Serum or Plasma 1.26 ng/dL 0.76- 1.46 [facility] ([facility]) ID Date Data Source [id number] 09/20/2020 02:59:00 PM EST [facility] ([facility]) Name Value Range Interpretation Code Description Data Whit rce(s) Supporting Document(s) Hemoglobin A1c/Hemoglobin.total in Blood 8.3 [facility] ([facility]) Glucose [Mass/volume] in Serum or Plasma 168 [facility] ([facility]) ID Date Data Source [id number] 06/20/2020 02:42:00 PM EDT [facility] ([facility]) Name Value Range Interpretation Code Description Data Whit rce(s) Supporting Document(s) Prolactin [Units/volume] in Serum or Plasma by 3rd IS 13.3 ng/mL 2.1- 17.7 [facility] ([facility]) ID Date Data Source [id number] 06/20/2020 02:42:00 PM EDT [facility] ([facility]) Name Value Range Interpretation Code Description Data Whit rce(s) Supporting Document(s) Thyroid Stimulating Hormone 15.000 uIU/ML 0.358-3.740 [facility] ([facility]) Free T4 0.31 ng/dL 0.76-1.46 [facility] ([facility]) ID Date Data Source [id number] 06/20/2020 01:50:00 PM EDT [facility] ([facility]) Name Value Range Interpretation Code Description Data Whit rce(s) Supporting Document(s) Hemoglobin A1c/Hemoglobin.total in Blood 7.7 [facility] ([facility]) Glucose [Mass/volume] in Serum or Plasma 164 [facility] ([facility]) ID Date Data Source [id number] 06/05/2020 07:54:00 AM EDT [facility] ([facility]) Name Value Range Interpretation Code Description Data Whit rce(s) Supporting Document(s) Thyroid Stimulating Hormone 0.011 uIU/ML 0.358-3.740 [facility] ([facility]) Free T4 0.63 ng/dL 0.76-1.46 [facility] ([facility]) ID Date Data Source [id number] 06/05/2020 07:54:00 AM EDT [facility] Name Value Range Interpretation Code Description Data Whit rce(s) Supporting Document(s) T4, FREE 0.63 ng/dL 0.76-1.46 L [facility] TSH 0.011 microintl units/mL 0.358-3.740 L [facility] ID Date Data Source [id number] 05/25/2020 03:34:38 PM EDT [facility] Name Value Range Interpretation Code Description Data Whit rce(s) Supporting Document(s) HGBA1C 8.1 % [facility] ID Date Data Source [id number] 04/10/2020 11:34:00 AM EDT [facility] ([facility]) Name Value Range Interpretation Code Description Data Whit rce(s) Supporting Document(s) Glucose [Mass/volume] in Serum or Plasma 232 [facility] ([facility]) Hemoglobin A1c/Hemoglobin.total in Blood 8.1 [facility] ([facility]) ID Date Data Source [id number] 03/19/2020 02:17:00 PM EDT [facility] ([facility]) Name Value Range Interpretation Code Description Data Whit rce(s) Supporting Document(s) Thyroid Stimulating Immunoglob 7.79 IU/L 0.00-0.55 [facility] ([facility]) Performed at: - [address] [id number] Senior Paralegal: Marlys Jin MD, Phone: [phone] ID Date Data Source [id number] 01/31/2020 05:04:00 PM EDT [facility] ([facility]) Name Value Range Interpretation Code Description Data Whit rce(s) Supporting Document(s) Triiodothyronine (T3) [Mass/volume] in Serum or Plasma 241.6 ng/dL 60.0-181.0 [facility] ([facility]) ID Date Data Source [id number] 01/31/2020 05:04:00 PM EDT [facility] ([facility]) Name Value Range Interpretation Code Description Data Whit rce(s) Supporting Document(s) Thyroid Stimulating Hormone Laboratory test result 0.358-3.740 [facility] ([facility] ) Free T4 2.83 ng/dL 0.76-1.46 [facility] ([facility]) ID Date Data Source [id number] 01/31/2020 05:04:00 PM EDT [facility] ([facility]) Name Value Range Interpretation Code Description Data Whit rce(s) Supporting Document(s) Thyroperoxidase Ab [Units/volume] in Serum or Plasma 86.5 U/ML [facility] ([facility] ) ID Date Data Source [id number] 01/18/2020 07:09:00 PM EDT [facility] ([facility] ) Name Value Range Interpretation Code Description Data Whit rce(s) Supporting Document(s) Laboratory test finding (navigational concept) 2.156 [facility] ([facility] ) Prostate specific Ag [Mass/volume] in Serum or Plasma 0.16 ng/mL [facility] ([facility]) Cholesterol [Mass/volume] in Serum or Plasma 110 mg/dL [facility] ([facility] ) Cholesterol in LDL [Mass/volume] in Serum or Plasma 48 mg/dL [facility] ([facility] ) Cholesterol in HDL [Mass/volume] in Serum or Plasma 51 mg/dL [facility] ([facility] ) Laboratory test finding (navigational concept) 59 [facility] ([facility] ) Albumin [Mass/volume] in Serum or Plasma 3.1 g/dL 3.2-5.2 [facility] ([facility]) Triglyceride [Mass/volume] in Serum or Plasma 53 mg/dL [facility] ([facility] ) Albumin/Globulin [Mass Ratio] in Serum or Plasma 1.07 1.00-1.93 [facility] ([facility] ) Bilirubin.total [Mass/volume] in Serum or Plasma 0.4 mg/dL 0.2-1.0 [facility] ([facility] ) Protein [Mass/volume] in Serum or Plasma 6.0 g/dL 6.4-8.2 [facility] ([facility] ) Alkaline phosphatase [Enzymatic activity/volume] in Blood 80 1/L 45-117 [facility] ([facility]) Aspartate aminotransferase [Enzymatic activity/volume] in Serum or Plasma 22 1/L 7-37 [facility] ([facility]) Calcium [Moles/volume] in Serum or Plasma 8.9 mg/dL 8.5-10.1 [facility] ([facility] ) Alanine aminotransferase [Enzymatic activity/volume] in Seru m or Plasma 32 1/L 12-78 [facility] ([facility]) Laboratory test finding (navigational concept) 4.6 meq/L 3.5-5.1 [facility] ([facility]) Urea nitrogen [Mass/volume] in Serum or Plasma 15 mg/dL 7-18 [facility] ([facility]) Creatinine [Mass/volume] in Serum or Plasma 0.59 mg/dL 0.70-1.30 [facility] ([facility]) Laboratory test finding (navigational concept) 179 mg/dL 70-100 [facility] ([facility]) ID Date Data Source [id number] 01/18/2020 10:55:00 AM EDT [facility] Name Value Range Interpretation Code Description Data Whit rce(s) Supporting Document(s) BG FASTING 179 mg/dL 70-100 H [facility] PSA 0.16 ng/mL < 4.00 N [facility] TSH < 0.005 uIU/ML microintl units/mL 0.358-3.740 L [facility] ID Date Data Source [id number] 01/18/2020 10:02:28 AM EDT [facility] Measurements & CalculationsHeight: 72 inches (6 ft. 0 in.) 182.88 cm Weight: 197 pounds 89.55 kg Body Mass Index (BMI): 26.81BMI Interpretation: OverweightBody Surface Area (BSA): 2.12Weight Management Education Done (Nutrition/Physical Activity)Vital SignsTemperature: 97.7F 36.50C tympanic Pulse Rate: 77 beats/minuteRespiratory Rate: 18 respirations/minuteBlood Pressure: 127/67 left arm sitting automaticVital Signs performed by: Kathryn Sullivan , January 18, 2020 10:09 AMVital Signs performed by: Kathryn Sullivan , January 18, 2020 10:09 AMInitial Intake Information From: patientRoom #: 11Infectious Disease / Travel ScreeningRecent travel for you or any close contacts? NoHave you had any close contact with anyone diagnosed with or under investigation for COVID-19 (coronavirus)? NoFever? NoRespiratory symptoms: cough, cold, congestion, shortness of breath, difficulty breathing? NoLoss of smell? NoLoss of taste? NoSmoking, Tobacco, Vaping or Smoke Exposure StatusSmoke Status: former smokerTobacco Use: NoDo you vape? NoPassive Smoke Exposure: NoHealthcare HistorySince your last office visit...Have you been admitted to the hospital? NoHave you been to an emergency room (ER) or urgent care clinic? NoHave you seen another healthcare provider? NoHave you seen a dentist? NoIntake performed by: Kathryn Sullivan , January 18, 2020 10:06 AMRate Your HealthIn general, would you say your health is? Very GoodPain AssessmentAre you currently having any pain which... You would like your provider to address? No Affects your activity level? NoDepression Screening - PHQ-2Over the last two weeks, have you... Had little interest or pleasure in doing things? Not at all Been feeling down, depressed, or hopeless? Not at all PHQ-2 Score: 0Anxiety Screening - ARTUR-2Over the last two weeks, have you been... Feeling nervous, anxious, or on edge? Not at all Unable to stop or control worrying? Not at all ARTUR-2 Score: 0Screening, Brief Intervention, & Referral to Treatment (SBIRT)Pre-Screening Questions How many times have you have 5 or more drinks in a day? 0How many times have you used an illegal drug or used a prescription medication for a non-medical reason? 0Performed by: Kathryn Sullivan , January 18, 2020 10:07 AMPatient History Medical History:Diabetes, Type 1Myocardial Infarction: Surgical History:vasectomypre-cancerous moles removed-groin and backheart catherization(L) arm surgery from accidentFamily History:Family History of AlcoholismFH Colon CancerFH DiabetesFH High CholesterolSocial/Personal History:Smoking History:Patient is a former smoker. Chief Complaintfollow-up visit- no concernsHistory of Present Illness (HPI)Telemedicine visit with patient's location at [facility] and provider's location at offsite office. Additional person(s)participating in the visit: n/a. Pt here today for 6 follow up. He continues to follow up with Dr. Soliz and Dr. Solomon regularly for his diabetes and diabetic foot care and recently saw him and now has an updated insulin pump with a sensor. No recent notes from Dr. Soliz available, old notes reviewed with patient today. He states that his latest a1c is about 8.4%. He continued to restart going to HRT through [facility] in [place] for his transition, identifies as a female. He is now in a relationship with a female. He does state that even before he was taking hormones, he had difficulty with ED. He has trouble obtaining and maintaining an erection. He was given VIagra at last visit and states it didn't work but he doesn't want to try any more medication.No acute concerns today. He denies CP, SOB, abdominal pain.HPI performed by: Charisse SKINNER, January 18, 2020 10:21 AMProblem ReviewProblem List was reviewed and/or updated during this visit.Medication Reconciliation & ReviewMedication List was reviewed and/or updated during this visit, including review of any qmui-wdn-vasrnbr medications, herbal therapies, and/or supplements.Allergy ReviewAllergy List was reviewed and/or updated during this visit.Adult Preventive CareProvider Calculated and Reviewed all Clinical Protocols for patient today. Immunizations Influenza Vaccine: #1: Not Given: declined (07/12/2015) #2: Not Given: Patient decision (01/18/2020)Labs/Meds/Other Counseling-Nutrition and Physical Activity:BMI Interpretation: Overweight (01/18/2020) Counseling: Done (01/18/2020) Physical Activity: Done (01/18/2020)Review of Systems General: Denies chills, fever, headache, feeling ill, sweats, night sweats. Cardiovascular: Denies chest pain. Respiratory: Denies cough, difficulty breathing. Psychiatric: Denies depression, anxiety. Physical ExamGeneral Appearance: well nourished, well hydrated, no acute distressEyes, External: conjunctivae and lids normal, EOMIHearing: grossly intactRespiratory, Effort: no intercostal retractions or use of accessory musclesGait & Station: normalOrientation: oriented to time, place, and personMood & Affect: no depression, anxiety, or agitationJudgment & Insight: fairMemory: intact for recent and remote eventsRate Your HealthIn general, would you say your health is? Very GoodAssessment & Plan Problems:Added: Screening exam for prostate cancer (ICD-V76.44) (NIX14-Z08.5) Assessment: Instructions: You have had blood work or a urine sample taken today. We will notify you within 7 days of any abnormal results. If everything is normal, you will not hear from us. You can check the portal or call if you want as well.Screening exam for prostate cancer (ICD-V76.44) (ZSP39-L22.5) Assessment: PSA ordered.Changed:From: Dx of Gender identity disorder, unspecified (MBS20-I54.9) To: Gender identity disorder, unspecified (ICD10- F64.9)Assessed:Gender identity disorder, unspecified (DIZ55-T25.9) Assessment: Having HRT through [facility]. Instructions: Continue to follow up with [facility] for your HRT.DIABETES, TYPE 1 (ICD-250.01) (MZY03-W59.9) Assessment: Managed by Dr. Soliz, consult notes reviewed. On insulin pump. Instructions: Continue to follow up with Dr. Soliz as instructed.Erectile dysfunction (ICD-607.84) (MGG65-G14.9) Assessment: Viagra didnt help, pt doesn't want to try anything else.Assessment not Saved DIABETES; TYPE 1 (HUS49-I84.9): Patient Instructions/Care Plan: Gender identity disorder- unspecified: Continue to follow up with [facility] for your HRT.DIABETES- TYPE 1: Continue to follow up with Dr. Soliz as instructed.Screening exam for prostate cancer: You have had blood work or a urine sample taken today. We will notify you within 7 days of any abnormal results. If everything is normal, you will not hear from us. You can check the portal or call if you want as well. Plan developed in collaboration with patient and/or familyMedications:PROGESTERONE MICRONIZED 100 MG ORAL CAPSULEFINASTERIDE 5 MG ORAL TABLETESTRADIOL 2 MG ORAL TABLETOMEPRAZOLE 40 MG ORAL CAPSULE DELAYED RELEASEMETOPROLOL TARTRATE 25 MG ORAL TABLETVENTOLIN HFA 108 (90 Base) MCG/ACT INHALATION AEROSOL SOLUTIONONETOUCH ULTRALINK w/Device KITONETOUCH FINEMolecular Imprints LANCETSONETOUCH TEST IN VITRO STRIPALCOHOL PREP 70 % PADADMELOG 100 UNIT/ML SUBCUTANEOUS SOLUTIONADULT ASPIRIN EC LOW STRENGTH 81 MG ORAL TABLET DELAYED RELEASESIMVASTATIN 40 MG ORAL TABLETLISINOPRIL 2.5 MG ORAL TABLETMedication Changes:Added: ESTRADIOL 2 MG ORAL TABLET-1 1/2 tabs by mouth every dayFINASTERIDE 5 MG ORAL TABLET-1 tab by mouth every dayPROGESTERONE MICRONIZED 100 MG ORAL CAPSULE-1 capsule by mouth every night at bedtimeRemoved:VIAGRA 100 MG ORAL TABLET-1/2-1 tab by mouth 30 min prior to sexual activity MDD 1 tab Qty: 10[Tablet] Refills: 0Allergies:PCN (Severe)Orders:COMP METABOLIC PANEL [CPT-59119] LIPID PANEL [CPT-53827] TSH [CPT-65516] PROSTATE CANCER SCREENING; PSA TEST [CPT-G0103] CBC W/DIFF [CPT- 52388] Office Visit - Established, Level 3 [CPT-55514ZK] 79856 - Venipuncture [CPT-21328] Follow-Up Return to clinic: 6 months for follow up Clinical Visit Summary CompletedVaccines Administered/Entered:Vaccination Group: InfluenzaSeries: 2 NOT GIVENVaccination: Flucelvax Quadrivalent PF (4y+) AdultReason Not Given: Patient decisionEntered Date: 01/18/2020 12:00 AMEntered by: Kathryn Sullivan In-House Blood TestsDate/Time Collected: January 18, 2020 10:54 AMTest Result Reference Range Normal ValueComments: blood draw done in office, taken from left ac, tolerated well.Kalli Mora, January 18, 2020 10:54 AM Name Value Range Interpretation Code Description Data Whit rce(s) Supporting Document(s) ID Date Data Source [id number] 12/20/2019 10:24:00 AM EDT [facility] ([facility]) Name Value Range Interpretation Code Description Data Whit rce(s) Supporting Document(s) Hemoglobin A1c/Hemoglobin.total in Blood 8.4 [facility] ([facility]) Glucose [Mass/volume] in Serum or Plasma 129 [facility] ([facility]) ID Date Data Source [id number] 11/30/2019 12:00:00 AM EDT [facility] CAROLINE Benjamin Patient Name: CARLITOS WELCH [address] [facility] Date of : 1965[place] [address] Date of Exam: 11/30/2019PH#: [phone]: EXAM: MAMMO SCREENING WITH CADCLINICAL INFORMATION: Screening.The patient's lifetime risk for development of invasive breast cancercannot be calculated due to his gender (Male).Digital screening (2D) mammography was performed bilaterally in the CC andMLO projections. Additionally, breast tomosynthesis (3D mammography) wasperformed bilaterally in the CC and MLO projections. Today's exam wascompared to the prior exam(s).By history, the patient has no complaints of a palpable breast abnormalityor other significant breast complaints.The patient states that a clinical breast exam was not performed.The breasts are unchanged in size and shape. Once again, denseheterogeneous fibroglandular elements are seen bilaterally in a stableappearing pattern but to such a degree that the sensitivity of themammogram in detecting cancer is decreased. There are no carlo-soft tissuedensities or spiculated masses. There is no internal architecturaldistortion. There are no suspicious carlo-calcific clusters. Skinthickening or nipple retraction is not present.IMPRESSION:BI-RADS Category 2 - Benign Finding(s). Stable mammogram. There is noevidence of malignant alteration of the breasts. Followup examinationrecommended in one year.This mammogram was read with the assistance of [employer], an FDAapproved computer aided detection system for mammography.Negative x-ray reports should not delay surgical consultation if a dominantor clinically suspicious mass is present.Not all breast cancers can be identified by mammography. Therefore, werecommend that you continue to perform regular breast self-examination andphysical examination and then promptly contact your physician of anyconcerns or changes.Adenosis and dense breasts may obscure an underlying neoplasm.AKASH Cheema/Ally you for referring CARLITOS WELCH to our office.Electronically Signed - RL RAO DO 11/30/19 15:53 Name Value Range Interpretation Code Description Data Whit rce(s) Supporting Document(s) Procedure Social History Code Duration Value Status Description Data Source(s ) Smoking 11/02/2020 12:00:00 AM EST Never smoker completed Never s moker [facility] ([facility]) Smoking 10/11/2020 12:00:00 AM EST Patient is a former smoker completed Patient is a former smoker [facility] ([facility]) Smoking 08/20/2020 12:00:00 AM EST Patient is a former smoker completed Patient is a former smoker [facility] ([facility]) 02/23/2020 12:00:00 AM EDT Current non-smoker completed C urrent non-smoker [facility] Vital Signs ID Date Data Source UNK Name Value Range Interpretation Code Description Data Source(s) Body mass index (BMI) [Ratio] 29.3 kg/m2 29.3 k g/m2 [facility] ([facility] Heart rate 58 /min 58 /min [facility] ([facility] Diastolic blood pressure 60 mm[Hg] 60 mm[Hg] [facility] ([facility] Systolic blood pressure 120 mm[Hg] 120 mm[Hg] M [facility]ENT ([facility] Body weight 216.00 [lb_av] 216.00 [lb_av] MED[facility] T ([facility] Body height 72 [in_i] 72 [in_i] [facility] ([facility] 6'0" Body mass index (BMI) [Ratio] 29.4 kg/m2 29.4 k g/m2 [facility] ([facility]) Body height 71 [in_i] 71 [in_i] [facility] ([facility]) 5'11" Body weight 211.00 [lb_av] 211.00 [lb_av] MEDEN T ([facility]) Body temperature 97.9 [degF] 97.9 [degF] [facility] ([facility]) Oxygen saturation in Arterial blood by Pulse oximetry 100 % 100 % [facility] ([facility]) Respiratory rate 18 /min 18 /min [facility] ( [facility]) Heart rate 73 /min 73 /min [facility] ([facility]) Diastolic blood pressure 64 mm[Hg] 64 mm[Hg] [facility] ([facility]) Systolic blood pressure 100 mm[Hg] 100 mm[Hg] M EDENT ([facility]) Oxygen saturation in Arterial blood by Pulse oximetry 99 % 99 % [facility] ([facility]) Body mass index (BMI) [Ratio] 30.3 kg/m2 30.3 k g/m2 [facility] ([facility]) Body weight 211.00 [lb_av] 211.00 [lb_av] MEDEN T ([facility] Body height 70 [in_i] 70 [in_i] [facility] ([facility] 5'10" Body temperature 97.0 [degF] 97.0 [degF] [facility] ([facility] ) Heart rate 70 /min 70 /min [facility] ([facility] ) Diastolic blood pressure 62 mm[Hg] 62 mm[Hg] [facility] ([facility] ) Systolic blood pressure 128 mm[Hg] 128 mm[Hg] M EDENT ([facility] ) Oxygen saturation in Arterial blood by Pulse oximetry 99 % 99 % [facility] ([facility] ) Body mass index (BMI) [Ratio] 29.6 kg/m2 29.6 k g/m2 [facility] ([facility]) Body weight 206.31 [lb_av] 206.31 [lb_av] MEDEN T ([facility]) Body height 70 [in_i] 70 [in_i] [facility] ([facility]) 5'10" Body temperature 96.8 [degF] 96.8 [degF] [facility] ([facility]) Heart rate 73 /min 73 /min [facility] ([facility]) Diastolic blood pressure 64 mm[Hg] 64 mm[Hg] [facility] ([facility]) Systolic blood pressure 140 mm[Hg] 140 mm[Hg] M EDENT ([facility]) Body weight 3332 [oz_av] 3332 [oz_av] [facility] ([facility]) Systolic blood pressure 132 mm[Hg] 132 mm[Hg] A [facility] ([facility]) Body mass index (BMI) [Ratio] 28.2 kg/m2 28.2 k g/m2 [facility] ([facility]) Body height 72 [in_i] 72 [in_i] [facility] ([facility]) Diastolic blood pressure 80 mm[Hg] 80 mm[Hg] [facility] ([facility]) Body weight 3332 [oz_av] 3332 [oz_av] [facility] ([facility]) Systolic blood pressure 132 mm[Hg] 132 mm[Hg] A [facility] ([facility]) Body mass index (BMI) [Ratio] 28.2 kg/m2 28.2 k g/m2 [facility] ([facility]) Body height 72 [in_i] 72 [in_i] [facility] ([facility]) Diastolic blood pressure 80 mm[Hg] 80 mm[Hg] [facility] ([facility]) Body weight 3332 [oz_av] 3332 [oz_av] [facility] ([facility]) Systolic blood pressure 132 mm[Hg] 132 mm[Hg] A [facility] ([facility]) Body mass index (BMI) [Ratio] 28.2 kg/m2 28.2 k g/m2 [facility] ([facility]) Body height 72 [in_i] 72 [in_i] [facility] ([facility]) Diastolic blood pressure 80 mm[Hg] 80 mm[Hg] [facility] ([facility]) Oxygen saturation in Arterial blood by Pulse oximetry 98 % 98 % [facility] ([facility]) Body mass index (BMI) [Ratio] 28.6 kg/m2 28.6 k g/m2 [facility] ([facility]) Body weight 199.25 [lb_av] 199.25 [lb_av] MEDEN T ([facility]) Body height 70 [in_i] 70 [in_i] [facility] ([facility]) 5'10" Heart rate 64 /min 64 /min [facility] ([facility]) Diastolic blood pressure 70 mm[Hg] 70 mm[Hg] [facility] ([facility]) Systolic blood pressure 124 mm[Hg] 124 mm[Hg] M EDENT ([facility] Body mass index (BMI) [Ratio] 26.5 kg/m2 26.5 k g/m2 [facility] ([facility]) Body height 71 [in_i] 71 [in_i] [facility] ([facility]) 5'11" Body weight 190.00 [lb_av] 190.00 [lb_av] MEDEN T ([facility]) Body temperature 98.7 [degF] 98.7 [degF] [facility] ([facility]) Oxygen saturation in Arterial blood by Pulse oximetry 96 % 96 % [facility] ([facility]) Heart rate 75 /min 75 /min [facility] ([facility]) Diastolic blood pressure 68 mm[Hg] 68 mm[Hg] [facility] ([facility]) Systolic blood pressure 108 mm[Hg] 108 mm[Hg] M EDENT ([facility]) Body mass index (BMI) [Ratio] 26.5 kg/m2 26.5 k g/m2 [facility] ([facility]) Body height 71 [in_i] 71 [in_i] [facility] ([facility]) 5'11" Body weight 190.00 [lb_av] 190.00 [lb_av] MEDEN T ([facility]) Body temperature 97.8 [degF] 97.8 [degF] [facility] ([facility]) Oxygen saturation in Arterial blood by Pulse oximetry 97 % 97 % [facility] ([facility]) Respiratory rate 17 /min 17 /min [facility] ( [facility]) Heart rate 86 /min 86 /min [facility] ([facility]) Diastolic blood pressure 67 mm[Hg] 67 mm[Hg] [facility] ([facility]) Systolic blood pressure 107 mm[Hg] 107 mm[Hg] M EDENT ([facility]) Oxygen saturation in Arterial blood by Pulse oximetry 97 % 97 % [facility] ([facility] ) Body mass index (BMI) [Ratio] 26.6 kg/m2 26.6 k g/m2 [facility] ([facility]) Body weight 185.06 [lb_av] 185.06 [lb_av] MEDEN T ([facility] ) Body height 70 [in_i] 70 [in_i] MEDENT ([facility] ) 5'10" Heart rate 84 /min 84 /min [facility] ([facility] ) Diastolic blood pressure 60 mm[Hg] 60 mm[Hg] [facility] ([facility] ) Systolic blood pressure 110 mm[Hg] 110 mm[Hg] M EDENT ([facility] ) Oxygen saturation in Arterial blood by Pulse oximetry 98 % 98 % [facility] ([facility] ) Body mass index (BMI) [Ratio] 27.4 kg/m2 27.4 k g/m2 [facility] ([facility] ) Body weight 191.25 [lb_av] 191.25 [lb_av] MEDEN T ([facility] ) Body height 70 [in_i] 70 [in_i] MED[facility] ([facility] ) 5'10" Heart rate 81 /min 81 /min MED[facility] ([facility] ) Diastolic blood pressure 70 mm[Hg] 70 mm[Hg] MEDENT ([facility] ) Systolic blood pressure 140 mm[Hg] 140 mm[Hg] M EDENT ([facility] ) Oxygen saturation in Arterial blood by Pulse oximetry 98 % 98 % MED[facility] ([facility] ) Body mass index (BMI) [Ratio] 26.8 kg/m2 26.8 k g/m2 MED[facility] ([facility]) Body weight 186.50 [lb_av] 186.50 [lb_av] MEDEN T ([facility]) Body height 70 [in_i] 70 [in_i] MED[facility] ([facility]) 5'10" Heart rate 96 /min 96 /min [facility] ([facility]) Diastolic blood pressure 70 mm[Hg] 70 mm[Hg] [facility] ([facility]) Systolic blood pressure 130 mm[Hg] 130 mm[Hg] M EDENT ([facility]) Oxygen saturation in Arterial blood by Pulse oximetry 96 % 96 % [facility] ([facility]) Body mass index (BMI) [Ratio] 27.5 kg/m2 27.5 k g/m2 [facility] ([facility]) Body weight 191.38 [lb_av] 191.38 [lb_av] MEDEN T ([facility]) Body height 70 [in_i] 70 [in_i] [facility] ([facility]) 5'10" Heart rate 95 /min 95 /min [facility] ([facility]) Diastolic blood pressure 78 mm[Hg] 78 mm[Hg] [facility] ([facility]) Systolic blood pressure 138 mm[Hg] 138 mm[Hg] M EDENT ([facility]) Body weight 3152 [oz_av] 3152 [oz_av] JOVON ([facility]) Systolic blood pressure 127 mm[Hg] 127 mm[Hg] A [facility] ([facility]) Body height 72 [in_i] 72 [in_i] JOVON ([facility]) Diastolic blood pressure 67 mm[Hg] 67 mm[Hg] JOVON ([facility]) Body weight 3152 [oz_av] 3152 [oz_av] JOVON ([facility]) Systolic blood pressure 127 mm[Hg] 127 mm[Hg] A [facility] ([facility]) Body height 72 [in_i] 72 [in_i] JOVON ([facility]) Diastolic blood pressure 67 mm[Hg] 67 mm[Hg] JOVON ([facility]) Body weight 3152 [oz_av] 3152 [oz_av] JOVON ([facility]) Systolic blood pressure 127 mm[Hg] 127 mm[Hg] A THENA ([facility]) Body height 72 [in_i] 72 [in_i] JOVON ([facility]) Diastolic blood pressure 67 mm[Hg] 67 mm[Hg] JOVON ([facility]) Body mass index (BMI) [Ratio] 28.12 kg/m2 Overweight 28.12 kg/m2 [facility] ([facility]) Body temperature 36.83 Shayla 36.83 Shayla [facility] ([facility]) Diastolic blood pressure 80 mm[Hg] 80 mm[Hg] [facility] ([facility]) Systolic blood pressure 124 mm[Hg] 124 mm[Hg] N [facility] ([facility]) Body weight 88.904 kg 88.904 kg [facility] ([facility]) Body height 177.80 cm 177.80 cm [facility] ([facility]) Oxygen saturation in Arterial blood by Pulse oximetry 97 % 97 % [facility] ([facility] ) Body mass index (BMI) [Ratio] 28.2 kg/m2 28.2 k g/m2 [facility] ([facility] ) Body weight 196.50 [lb_av] 196.50 [lb_av] MEDEN T ([facility] ) Body height 70 [in_i] 70 [in_i] MEDENT ([facility] ) 5'10" Heart rate 75 /min 75 /min [facility] ([facility] ) Diastolic blood pressure 70 mm[Hg] 70 mm[Hg] MED[facility] ([facility] ) Systolic blood pressure 118 mm[Hg] 118 mm[Hg] M EDENT ([facility] ) Body height 72 [in_i] 72 [in_i] [facility] ([facility] 6'0" Body mass index (BMI) [Ratio] 26.9 kg/m2 26.9 k g/m2 [facility] ([facility] Heart rate 66 /min 66 /min [facility] ([facility] Diastolic blood pressure 60 mm[Hg] 60 mm[Hg] [facility] ([facility] Systolic blood pressure 102 mm[Hg] 102 mm[Hg] M EDENT ([facility] Body weight 198.00 [lb_av] 198.00 [lb_av] MEDEN T ([facility] Patient Treatment Plan of Care Planned Activity Planned Date Details Description Data Source (s) Estradiol 2 MG Oral Tablet 10/12/2020 12:00:00 AM EST [facility] ([facility]) Estradiol 2 MG Oral Tablet 07/13/2020 12:00:00 AM EDT [facility] ([facility]) Estradiol 2 MG Oral Tablet 07/13/2020 12:00:00 AM EDT [facility] ([facility]) Progesterone 100 MG Oral Capsule [Prometrium] 05/21/2020 12:00:00 A M EDT [facility] ([facility]) Finasteride 5 MG Oral Tablet 04/23/2020 12:00:00 AM EDT [facility] ([facility]) Estradiol 2 MG Oral Tablet 04/23/2020 12:00:00 AM EDT [facility] ([facility]) Eflornithine 139 MG/ML Topical Cream [Vaniqa] 03/28/2020 12:00:00 A M EDT [facility] ([facility]) Progesterone 100 MG Oral Capsule [Prometrium] 03/27/2020 12:00:00 A M EDT [facility] ([facility]) Estradiol 2 MG Oral Tablet 03/27/2020 12:00:00 AM EDT [facility] ([facility]) Estradiol 2 MG Oral Tablet 02/23/2020 12:00:00 AM EDT [facility] ([facility]) Finasteride 5 MG Oral Tablet 12/21/2019 12:00:00 AM EDT [facility] ([facility]) Progesterone 100 MG Oral Capsule [Prometrium] 12/21/2019 12:00:00 A M EDT [facility] ([facility]) Estradiol 2 MG Oral Tablet 12/21/2019 12:00:00 AM EDT [facility] ([facility]) Estradiol 2 MG Oral Tablet 09/28/2019 12:00:00 AM EST [facility] ([facility]) Finasteride 5 MG Oral Tablet 09/28/2019 12:00:00 AM EST [facility] ([facility]) Finasteride 5 MG Oral Tablet [facility] ([facility]) Progesterone 100 MG Oral Capsule [facility] ([facility]) Estradiol 2 MG Oral Tablet N [facility] ([facility])
[2020-11-05] MEDS ORDERED: LIDOCAINE 2% 100MG/5ML SDV (FOR ANES.) As Ordered ONE (09:50)
[2020-11-05] MEDS ORDERED: propofoL 200 MG/20 ML VIAL As Ordered ONE ×2 (09:50→09:57)
--- NOTE | 2020-11-05 10:02 | ROOR ---
Patient Name: Clayton Santizo Procedure Date: 11/05/2020 9:49 AM Date of : 1965 Age: 55 Room: [facility] Gender: Male Note Status: Finalized Procedure: Upper Endoscopy + Biopsies Indications: Heartburn, Follow-up of Samson's esophagus Providers: Javon Dixon MD Referring MD: Charisse MACIEL NP Requesting Provider: Medicines: Monitored Anesthesia Care Complications: No immediate complications. Procedure: Pre-Anesthesia Assessment: - The heart rate, respiratory rate, oxygen saturations, blood pressure, adequacy of pulmonary ventilation, and response to care were monitored throughout the procedure. The Endoscope was introduced through the mouth, and advanced to the second part of duodenum. The upper GI endoscopy was accomplished without difficulty. The patient tolerated the procedure well. Findings: The Z-line was irregular and was found 40 cm from the incisors. Multiple biopsies were obtained with cold forceps for evaluation to rule out Samson's Esophagus randomly at the gastroesophageal junction. A small hiatal hernia was present. No other significant abnormalities were identified in a careful examination of the stomach. The exam of the duodenum was otherwise normal. Impression: - Z-line irregular, 40 cm from the incisors. - Small hiatal hernia. - Multiple biopsies were obtained at the gastroesophageal junction. - The examination was otherwise normal. Recommendation: - Patient has a contact number available for emergencies. The signs and symptoms of potential delayed complications were discussed with the patient. Return to normal activities tomorrow. Written discharge instructions were provided to the patient. - High fiber diet. - Discharge patient to home. - Follow an antireflux regimen. - Continue present medications. - Await pathology results. - Telephone GI clinic for pathology results in 1 week. - Return to referring physician. - The findings and recommendations were discussed with the patient. Procedure Code(s): --- Professional --- 67376, Esophagogastroduodenoscopy, flexible, transoral; with biopsy, single or multiple Diagnosis Code(s): --- Professional --- K22.8, Other specified diseases of esophagus K44.9, Diaphragmatic hernia without obstruction or gangrene K22.70, Samson's esophagus without dysplasia R12, Heartburn CPT copyright 2019 [employer]. All rights reserved. The codes documented in this report are preliminary and upon administrative professional review may be revised to meet current compliance requirements. Javon Dixon MD Javon Dixon MD 11/05/2020 10:02:19 AM Electronically signed by Javon Dixon MD Number of Addenda: 0 Note Initiated On: 11/05/2020 9:49 AM Estimated Blood Loss: Estimated blood loss: none.
[2020-11-05 10:25] VITALS: BP 119/65
== END 2020-11-05 10:28 | disposition home or self-care (01) ==
LOC: M OPP 07:58
PROVIDERS: ATTEND Internal Medicine Gastroenterology
DX: R12 Heartburn (principal); D13.0 Benign neoplasm of esophagus; K22.70 Barrett's esophagus without dysplasia; K22.8 Other specified diseases of esophagus; K44.9 Diaphragmatic hernia without obstruction or gangrene; I25.2 Old myocardial infarction; I10 Essential (primary) hypertension; E78.5 Hyperlipidemia, unspecified; E10.9 Type 1 diabetes mellitus without complications; E03.9 Hypothyroidism, unspecified; J45.909 Unspecified asthma, uncomplicated; Z88.0 Allergy status to penicillin; Z79.82 Long term (current) use of aspirin; Z79.899 Other long term (current) drug therapy

== ENCOUNTER → 2020-11-30 | Outpatient (CLI) | payer OTHER ==
[~2020-11-30] MED LIST changes: -NS 1,000 ML IV ONE
--- NOTE | 2020-11-30 09:00 | REPMRS ---
Patient History The patient states a clinical breast exam was done in 2019. Family history of unknown cancer in mother. Taking estrogen for 4 years. Digital Woman Screen Mammo: November 30, 2020 - Exam #: [id number] Bilateral CC and MLO view(s) were taken. Technologist: Victorina Sanz Technologist FINDINGS: The breast tissue is heterogeneously dense. This may lower the sensitivity of mammography. There is a moderate amount of heterogeneously dense fibroglandular tissue which is fairly symmetric. There is no interval development of dominant mass, architectural distortion, or grouped microcalcification typical of malignancy. There has been no change in the appearance of the mammogram from the prior studies. 3-D tomosynthesis shows no additional findings. Assessment: BI-RADS/ACR category 1 mammogram. Negative Mammogram. Recommendation Routine screening mammogram of both breasts in 1 year. This mammogram was interpreted with the aid of an FDA-approved computer-aided dectection system. Electronically Signed By: Dann Faust MD 11/30/20 [id number]
== END ==
LOC: M WHC 07:47
PROVIDERS: ATTEND Physician Assistant
DX: Z12.31 Encounter for screening mammogram for malignant neoplasm of breast (principal); Z80.8 Family history of malignant neoplasm of other organs or systems; Z92.23 Personal history of estrogen therapy

== ENCOUNTER → 2020-12-12 | Outpatient (CLI) | payer OTHER ==
--- NOTE | 2020-12-12 18:09 | REP ---
INDICATION: WHEEZING, LAB 1ST THEN XR COMPARISON: 02/08/2018. TECHNIQUE: PA/Lateral FINDINGS: Lungs: Clear, no infiltrate. Heart: Normal in size. Mediastinum: Mediastinal silhouette unremarkable. Pleural angles: Unremarkable.. Bones and soft tissues: Unremarkable. IMPRESSION: No acute pulmonary disease. <Electronically signed by Usman Murray > 12/12/20 [id number]
[2020-12-12 18:13] LABS: BASO # 0.1 10^3/uL (0.0-0.2); BASO % 2.1 % (0.0-1.0); EOS # 0.6 10^3/uL (0.0-0.5); EOS % 8.7 % (0.0-3.0); HEMATOCRIT 42.7 % (42.0-52.0); HEMOGLOBIN 14.1 g/dl (13.5-17.5); LYMPH # 2.1 10^3/uL (1.5-5.0); LYMPH % 33.7 % (24.0-44.0); MEAN CORPUSCULAR HEMOGLOBIN 30.9 pg (27.0-33.0); MEAN CORPUSCULAR VOLUME 93.4 fl (80.0-96.0); MONO # 0.6 10^3/uL (0.0-0.8); MONO % 9.7 % (2.0-8.0); NEUTROPHILS # 2.8 10^3/uL (1.5-8.5); NEUTROPHILS % 44.7 % (36.0-66.0); PLATELET COUNT, AUTOMATED 231 10^3/uL (150-450); RED BLOOD COUNT 4.57 10^6/uL (4.30-6.10); WHITE BLOOD COUNT 6.3 10^3/uL (4.0-10.0)
[2020-12-12 18:57] LABS: ALBUMIN 3.7 GM/DL (3.2-5.2); ALT/SGPT 31 U/L (12-78); BILIRUBIN,TOTAL 0.3 MG/DL (0.2-1.0); BLOOD UREA NITROGEN 12 MG/DL (7-18); CARBON DIOXIDE LEVEL 28 MEQ/L (21-32); CHLORIDE LEVEL 102 MEQ/L (98-107); CREATININE FOR GFR 0.78 MG/DL (0.70-1.30); GLOMERULAR FILTRATION RATE > 60.0 (>56); GLUCOSE, FASTING 181 MG/DL (70-100); NT-PRO BNP 25 PG/ML (<125); POTASSIUM SERUM 4.4 MEQ/L (3.5-5.1); SODIUM LEVEL 137 MEQ/L (136-145); TOTAL PROTEIN 6.6 GM/DL (6.4-8.2)
== END ==
LOC: M LAB 16:51
PROVIDERS: ATTEND Pediatrics
DX: R06.2 Wheezing (principal)

== ENCOUNTER → 2021-02-04 | Outpatient (REF) | payer OTHER ==
[2021-02-04 14:08] LABS: CHOLESTEROL RISK RATIO 1.953 (<5); THYROID STIMULATING HORMONE 2.67 uIU/ML (0.358-3.740); TOTAL 25(OH) VITAMIN D 11.2 NG/ML (30.0-100.0)
[2021-02-04 14:23] LABS: HEMOGLOBIN A1c 8.3 %
== END ==
LOC: M PLALAB 12:48
PROVIDERS: ATTEND Pediatrics
DX: E10.9 Type 1 diabetes mellitus without complications (principal); E55.9 Vitamin D deficiency, unspecified; E78.5 Hyperlipidemia, unspecified; E23.0 Hypopituitarism

== ENCOUNTER → 2021-02-14 | Outpatient (CLI) | payer OTHER | LOC: M LABSMTC 11:01 | PROVIDERS: ATTEND Surgery | DX: Z01.812 Encounter for preprocedural laboratory examination (principal); F64.9 Gender identity disorder, unspecified; Z20.822 Contact with and (suspected) exposure to COVID-19 ==

== ENCOUNTER → 2021-02-25 | Outpatient (CLI) | payer OTHER ==
--- NOTE | 2021-02-25 13:27 | PFTRPT ---
Height: 71.00 Inches Weight: 225.00 Lbs BSA: 2.22 Diagnosis: J45.909 DATE: 02/25/2021 ORDERED BY: Celena Mcbride M.D. Pre and post bronchodilator studies have excellent technical quality. Forced vital capacity is reduced. FEV1 is in proportion. Obstructive index is therefore normal. Expiratory limit of the flow-volume loop does suggest prominent air restrictive impairment. No significant bronchodilator response is identified. Total lung capacity is reduced. Residual volume is generally in proportion. Diffusing capacity although reduced is appropriate for alveolar volume. No hemoglobin available for correction. Airway resistance and conductance are normal. IMPRESSION: At least a mild degree of restrictive ventilatory impairment. Please correlate clinically. MTDD
== END ==
LOC: M CARPUL 12:55
PROVIDERS: ATTEND Pediatrics
DX: J45.909 Unspecified asthma, uncomplicated (principal)

== ENCOUNTER → 2021-04-09 | Outpatient (CLI) | payer OTHER ==
[~2021-04-09] MED LIST changes: +METHACHOLINE KIT (J7674) INH ONE; +OMEP40CA4 PO; -OMEP40CA97 PO
--- NOTE | 2021-04-09 12:02 | PFTRPT ---
Height: 71.00 Inches Weight: 222.00 Lbs BSA: 2.20 Diagnosis: R60.02 DATE: 04/09/2021 ORDERED BY: Rito Rome M.D. QUALITY: Study of excellent technical quality. PROCEDURE: Under protocol, methacholine was administered. At a dose of 2.5 mg or 13.875 CDUs, a 20% decline in the FEV1 was noted. PC of 2.18 is significant. Flow rates did return to baseline post bronchodilator administration. IMPRESSION: Positive methacholine challenge study. MTDD
== END ==
LOC: M CARPUL 11:10
PROVIDERS: ATTEND Internal Medicine Pulmonary Disease
DX: R06.02 Shortness of breath (principal)
CPT/HCPCS: 94070; 95070; J7674

== ENCOUNTER → 2021-04-10 | Outpatient (CLI) | payer OTHER ==
[~2021-04-10] MED LIST changes: -METHACHOLINE KIT (J7674) INH ONE
--- NOTE | 2021-04-10 15:54 | REP ---
INDICATION: SOB. COMPARISON: PA lateral 12/12/2020 TECHNIQUE: Noncontrast scanning through the chest with coronal and sagittal reconstructions. FINDINGS: The lung ryan are well inflated. There is no pleural effusion, bullous emphysematous change, pleural based mass or calcified pleural plaque. Some minor curvilinear fibroatelectatic change posterior basal segment of the left lower lobe. On image 11 in the posterior aspect of the apex of the right lung there is a calcified granuloma. Calcified nodes are seen near the right hilum and paratracheal region. There are no bullous emphysematous changes. The heart is not enlarged and there is no pericardial thickening or effusion. Some coronary artery calcifications are seen. The aorta is without aneurysm. Pulmonary arteries are prominent at the hilar regions may reflect pulmonary artery hypertension, possibly on the basis of COPD. Tracheal airway grossly intact. No pathologic sized nodes are visible. The prominence of the pulmonary arteries and absence of IV contrast makes determination of possible hilar nodes difficult, none grossly present. However an AP window node up to 10 mm in short axis on image 32. Some degenerative changes in the midthoracic spine its no acute compression deformities in the spine. Old posttraumatic changes in the sternum which are healed. No rim, medial clavicles, scapula, visualized portion of humeral heads and ribs were all unremarkable. The upper abdomen shows spleen with calcified granulomas but not enlarged the liver is not enlarged shows no focal lesion. There is no biliary dilatation. Gallbladder shows no calcified stone or mass. Pancreas, adrenal glands, upper poles of the kidneys, visualized colon and small bowel loops were all unremarkable. No intra-abdominal free air or ascites in that portion included in the CT abdomen IMPRESSION: 1. The granuloma in the right upper lobe and calcified nodes in the right hilum and mediastinum as well as granulomatous calcifications in the spleen. 2. Lungs are otherwise clear without infiltrate, noncalcified nodules, mass, pleural effusion, calcified or soft tissue plaques on the pleura nor other acute lung finding. 3. The heart and mediastinal contours show only of fullness of the pulmonary arteries and a 10 mm AP window node on the left. 4. Some degenerative changes in the midthoracic spine without acute bony finding. 5. Upper abdomen without acute abnormality. <Electronically signed by Rm Donato > 04/10/21 [id number]
== END ==
LOC: M RAD 15:13
PROVIDERS: ATTEND Internal Medicine Pulmonary Disease
DX: R06.02 Shortness of breath (principal); R91.8 Other nonspecific abnormal finding of lung field; M51.34 Other intervertebral disc degeneration, thoracic region

== ENCOUNTER → 2021-06-03 | Outpatient (CLI) | payer OTHER ==
[~2021-06-03] MED LIST changes: -LISI2.5T2 PO; +LISI2.5T9 PO
[2021-06-03 11:08] LABS: HEMATOCRIT 41.3 % (42.0-52.0); HEMOGLOBIN 13.5 g/dl (13.5-17.5); MEAN CORPUSCULAR HEMOGLOBIN 30.3 pg (27.0-33.0); MEAN CORPUSCULAR HGB CONC 32.7 g/dl (32.0-36.5); MEAN CORPUSCULAR VOLUME 92.6 fl (80.0-96.0); PLATELET COUNT, AUTOMATED 237 10^3/uL (150-450); RED BLOOD COUNT 4.46 10^6/uL (4.30-6.10); WHITE BLOOD COUNT 6.3 10^3/uL (4.0-10.0)
[2021-06-03 12:47] LABS: CHOLESTEROL RISK RATIO 2.272 (<5)
[2021-06-03 12:58] LABS: CREATININE, URINE 49.8 MG/DL; MALB URINE SIEMENS < 5.0 MG/L
== END ==
LOC: M PLALAB 08:46
PROVIDERS: ATTEND Internal Medicine Endocrinology, Diabetes & Metabolism
DX: F64.9 Gender identity disorder, unspecified (principal); E10.65 Type 1 diabetes mellitus with hyperglycemia

== ENCOUNTER 2021-07-02 19:36 | Inpatient (IN) | payer OTHER ==
[~2021-07-02] VITALS: Ht 180.3 cm; Wt 85.3 kg
[2021-07-02] MEDS ORDERED: ACETAMINOPHEN 325 MG TAB PO ONE (19:50)
[2021-07-02 20:39] LABS: INR 1.17; PROTHROMBIN TIME 15.3 SECONDS (12.7-14.5)
[2021-07-02 20:40] LABS: PARTIAL THROMBOPLASTIN TIME 34.5 SECONDS (25.9-37.0)
[2021-07-02 20:43] LABS: D-DIMER QUANT 1306.52 ng/ml (<500)
[2021-07-02 20:54] LABS: ALBUMIN 2.5 GM/DL (3.2-5.2); ALT/SGPT 20 U/L (12-78); BILIRUBIN,DIRECT 0.2 MG/DL (0.0-0.2); BILIRUBIN,TOTAL 0.5 MG/DL (0.2-1.0); CPK CREATINE PHOSPHOKINASE 69 U/L (39-308); FERRITIN 554 NG/ML (26-388); LDH LACTATE DEHYDROGENASE 272 U/L (87-241); TOTAL PROTEIN 6.1 GM/DL (6.4-8.2); TROPONIN I < 0.02 NG/ML (< 0.10)
[2021-07-02 21:02] LABS: RSV AMPLIFICATION NEGATIVE (NEGATIVE)
[2021-07-02 22:11] LABS: BASO % 0.4 % (0.0-1.0); HEMATOCRIT 39.8 % (42.0-52.0); HEMOGLOBIN 13.5 g/dl (13.5-17.5); LYMPH # 0.5 10^3/uL (1.5-5.0); LYMPH % 6.6 % (24.0-44.0); MEAN CORPUSCULAR HEMOGLOBIN 30.1 pg (27.0-33.0); MEAN CORPUSCULAR HGB CONC 33.9 g/dl (32.0-36.5); MEAN CORPUSCULAR VOLUME 88.6 fl (80.0-96.0); MONO # 0.7 10^3/uL (0.0-0.8); MONO % 8.9 % (2.0-8.0); NEUTROPHILS % 79.7 % (36.0-66.0); PLATELET COUNT, AUTOMATED 253 10^3/uL (150-450); RED BLOOD COUNT 4.49 10^6/uL (4.30-6.10); WHITE BLOOD COUNT 7.6 10^3/uL (4.0-10.0)
--- NOTE | 2021-07-02 22:16 | ECGEPIP ---
[facility] - ED Test Date: 2021-07-02 Pat Name: CARLITOS WELCH Department: Room: - Gender: Male [employer]: diana : 1965 Requested By: ZHAO Tejada Order Number: [id number] Reading MD: Art Valero Measurements Intervals [place] Rate: 88 P: 0 CT: 156 QRS: -34 QRSD: 116 T: 16 QT: 366 QTc: 442 Interpretive Statements Normal sinus rhythm Left axis deviation Incomplete right bundle branch block Similar to tracing done 02-27-17 Electronically Signed on 07-02-2021 22:15:44 EDT by Art Valero
--- NOTE | 2021-07-02 22:19 | REPVR ---
PROCEDURE INFORMATION: Exam: XR Chest Exam date and time: 07/02/2021 8:05 PM Age: 56 years old Clinical indication: Cough; Additional info: Cough and dyspnea TECHNIQUE: Imaging protocol: XR of the chest. Views: 1 view. COMPARISON: CT Chest without contrast 04/10/2021 3:24 PM FINDINGS: Lungs: Right midlung opacification representing infiltrates/pneumonia. Pleural spaces: Unremarkable. No pleural effusion. No pneumothorax. Heart/Mediastinum: Unremarkable. No cardiomegaly. Bones/joints: Unremarkable. IMPRESSION: Right midlung opacification representing infiltrates/pneumonia. Electronically signed by: Victor Manuel Jose On 07/02/2021 22:19:12 PM
[2021-07-02 22:34] LABS: BLOOD UREA NITROGEN 27 MG/DL (7-18); CALCIUM LEVEL 7.6 MG/DL (8.5-10.1); CARBON DIOXIDE LEVEL 23 MEQ/L (21-32); CHLORIDE LEVEL 105 MEQ/L (98-107); CREATININE FOR GFR 0.85 MG/DL (0.70-1.30); GLOMERULAR FILTRATION RATE > 60.0 (>56); GLUCOSE, FASTING 205 MG/DL (70-100); POTASSIUM SERUM 4.6 MEQ/L (3.5-5.1); SODIUM LEVEL 135 MEQ/L (136-145)
[2021-07-02] MEDS ORDERED: ISOVUE-370 76% 100ML VIAL As Ordered ONE (22:39)
[2021-07-02] MEDS ORDERED: guaiFENesin ER 600 MG TAB PO PRN (23:00)
[2021-07-02] MEDS ORDERED: COMBIVENT RESPIMAT 100-20MCG INHALER 4GM INH PRN (23:00)
[2021-07-02] MEDS ORDERED: ACETAMINOPHEN TAB 650MG DOSE (2X325MG) PO PRN (23:00)
--- NOTE | 2021-07-02 23:04 | HPEPDOC ---
[facility] Medical History & Physical Date of Admission Jul 02, 2021 Date of Service: Jul 02, 2021 Attending Physician: OSEI RON MD History and Physical CHIEF COMPLAINT: [56 y/o male c/o "heavy breathing" x2-3 weeks] HISTORY OF PRESENT ILLNESS: [This is a 56 y/o male with a pmh of cad, asthma, gerd, hypothyroidism and dm1 who presents to our ED on 07/02 with a cc of sob that has been persistent over the past 2-3 weeks. Patient states that symptoms began suddenly about 2-3 weeks ago and have not improved. Patient tells me that his daughter recently tested positive for COVID19 on 06/21. Patient admits to associated chills, cough sometimes productive of gautam sputum, malaise and fatigue. Patient, at the time of my exam, denies any chest pain, hemoptysis, abd pain, n/v/d/c, syncope, paresthesias, pedal edema, calf pain. Patient tells me that he did not receive his covid vaccination.] PAST MEDICAL HISTORY: 1. [See HPI PAST SURGICAL HISTORY: 1. [Cardiac cath]. 2. [Vasectomy]. 3. [Colonoscopy]. SOCIAL HISTORY: Tobacco use:[Former smoker] ETOH: [Denies] Illicit drug use: [Denies] FAMILY HISTORY: Reviewed - none pertinent ALLERGIES: Please see below. REVIEW OF SYSTEMS: CONSTITUTIONAL: [See HPI]. HEENT: [See HPI]. CARDIOVASCULAR: [Denies chest pain, palpitations]. RESPIRATORY: [See HPI]. GASTROINTESTINAL: [Denies abd pain, n/v/d/c]. GENITOURINARY: [Denies dysuria]. SKIN: [Denies rash]. MUSCULOSKELETAL: [Denies acute joint pain]. NEUROLOGICAL: [Denies syncope, paresthesias]. ENDOCRINE: [Hx of DM1]. HEMATOLOGIC/LYMPHATIC: [Denies hx of vte]. HOME MEDICATIONS: Please see below. PHYSICAL EXAMINATION: VITAL SIGNS: Please see below. GENERAL APPEARANCE: [This is a 56 y/o male who is alert and oriented to all questioning. He does not appear to be in any acute distress]. HEENT: [No mass or lesion. EOMI. No scleral icterus. Nares patent. Oral mucosa moist]. CARDIOVASCULAR: [Regular rate, rhythm. No murmurs, rubs, gallops]. LUNGS: [Decreased breath sounds. No wheezing appreciated]. ABDOMEN: [Soft, nontender]. MUSCULOSKELETAL: [No joint deformity noted]. EXTREMITIES: [No pedal edema appreciated. Pulses intact. No overlying skin changes]. NEUROLOGICAL: [Speech clear. A+Ox3. No focal deficits]. PSYCHIATRIC: [Mood and affect appear appropriate]. LABORATORY DATA: See below. IMAGING: [CXR: FINDINGS: Lungs: Right midlung opacification representing infiltrates/pneumonia. Pleural spaces: Unremarkable. No pleural effusion. No pneumothorax. Heart/Mediastinum: Unremarkable. No cardiomegaly. Bones/joints: Unremarkable. IMPRESSION: Right midlung opacification representing infiltrates/pneumonia. CTA Chest: FINDINGS: Pulmonary arteries: Normal. No pulmonary emboli. Aorta: Unremarkable. No aortic aneurysm. No aortic dissection. Lungs: Patchy ground-glass opacities and consolidations in bilateral lungs suspicious for COVID-19 infection. Pleural spaces: Unremarkable. No pneumothorax. No pleural effusion. Heart: Unremarkable. No cardiomegaly. No pericardial effusion. Lymph nodes: Unremarkable. No enlarged lymph nodes. Spleen: Calcified granulomata of the spleen. Bones/joints: Unremarkable. No acute fracture. Soft tissues: Unremarkable. IMPRESSION: No pulmonary embolism. Patchy ground-glass opacities and consolidations in bilateral lungs suspicious for COVID-19 infection. Correlation with lab values.] MICROBIOLOGY: Please see below. ASSESSMENT: [This is a 56 y/o male with a pmh of cad, asthma, gerd, hypothyroidism and dm1 who presents to our ED on 07/02 with a cc of sob that has been persistent over the past 2-3 weeks. Patient tested positive for COVID19 in our ED]. . PLAN: 1. [Hypoxia 2/2 COVID19 pneumonia - As of my exam of patient, they were acutely requiring 3L nasal canula to maintain o2 saturations >90 - Will continue supplemental o2 titrated to >90 - Will begin remdesevir/dexamethasone protocol - combivent prn for sob - guaifensesin prn for cough - tylenol prn for fevers - will trend inflammatory markers - admit to med surg for tx 2. DM - sliding scale insulin - hypoglycemic protocol 3. Asthma - does not appear to currently be in acute exacerbation - continue at home inhalers - patient will be receiving steroids for tx of covid which should help avoid exacerbation 4. GERD - continue omeprazole 5. HLD - continue simvastatin 6. HTN - continue lisinopril 7. Transsexualism - continue estradiol 8. CAD - continue asa DVT prophylaxis - lovenox]. Vital Signs Vital Signs Date Time Temp Pulse Resp B/P (MAP) Pulse Ox O2 Delivery O2 Flow Rate FiO2 07/02/21 21:21 89 20 95 Room Air 07/02/21 21:15 103/54 (70) 07/02/21 20:32 2.0 07/02/21 20:21 99.8 Laboratory Data Labs 24H Laboratory Tests 2 07/02/21 20:00: Coronavirus (COVID-19)(PCR) POSITIVEA, Influenza Type A (RT-PCR) NEGATIVE, Influenza Type B (RT-PCR) NEGATIVE, Respiratory Syncytial Virus (PCR) NEGATIVE 07/02/21 20:19: Prothrombin Time 15.3H, Prothromb Time International Ratio 1.17, Activated Partial Thromboplast Time 34.5, Fibrinogen 536H, D-Dimer, Quantitative 1306.52H, Ferritin 554H, Total Bilirubin 0.5, Direct Bilirubin 0.2, Aspartate Amino Transf (AST/SGOT) 19, Alanine Aminotransferase (ALT/SGPT) 20, Alkaline Phosphatase 75, Lactate Dehydrogenase 272H, Total Creatine Kinase 69, Troponin I < 0.02, C- Reactive Protein, Quantitative 7.30H, Total Protein 6.1L, Albumin 2.5L, Albumin/Globulin Ratio 0.7 07/02/21 21:59: Immature Granulocyte % (Auto) 4.4H, Neutrophils (%) (Auto) 79.7H, Lymphocytes (%) (Auto) 6.6L, Monocytes (%) (Auto) 8.9H, Eosinophils (%) (Auto) 0.0, Basophils (%) (Auto) 0.4, Neutrophils # (Auto) 6.0, Lymphocytes # (Auto) 0.5L, Monocytes # (Auto) 0.7, Eosinophils # (Auto) 0.0, Basophils # (Auto) 0.0, Nuc leated Red Blood Cells % (auto) 0.0, Anion Gap 7L, Glomerular Filtration Rate > 60.0, Calcium Level 7.6L CBC/BMP Laboratory Tests 07/02/21 21:59 Home Medications Scheduled Aspirin (Aspirin EC) 81 Mg Tablet.dr, 81 MG PO DAILY Cholecalciferol (Vitamin D3) (Vitamin D3) 50 Mcg Capsule, 50 MCG PO DAILY Estradiol (Estradiol) 2 Mg Tablet, 1 MG PO BID Fluticasone Propion/Salmeterol (Airduo Respiclick 113-14 Mcg) 1 Each Aer.pow.ba, 1 PUFF INH BID Insulin Lispro (Admelog) 100 Unit/1 Ml Vial, 1 DOSE SC ASDIRECTED VIA INSULIN PUMP Lisinopril (Lisinopril) 2.5 Mg Tablet, 2.5 MG PO DAILY Omeprazole (Omeprazole) 40 Mg Capsule.dr, 40 MG PO DAILY Simvastatin (Simvastatin) 40 Mg Tablet, 40 MG PO DAILY Scheduled PRN Albuterol Sulfate (Proair Hfa) 8.5 Gm Hfa.aer.ad, 2 PUFF INH Q4H PRN for SHORTNESS OF BREATH Allergies Coded Allergies: Penicillins (Verified Allergy, Unknown, 10/26/20) A-FIB/CHADSVASC A-FIB History Current/History of A-Fib/PAF?: No STEVEN LOPEZ Jul 02, 2021 23:04
--- NOTE | 2021-07-02 23:22 | REPVR ---
PROCEDURE INFORMATION: Exam: CTA Chest With Contrast Exam date and time: 07/02/2021 11:00 PM Age: 56 years old Clinical indication: Shortness of breath; Additional info: Rule out pe TECHNIQUE: Imaging protocol: Computed tomographic angiography of the chest with contrast. 3D rendering (Not supervised by radiologist): MIP and/or 3D reconstructed images were created by the technologist. Radiation optimization: All CT scans at this facility use at least one of these dose optimization techniques: automated exposure control; mA and/or kV adjustment per patient size (includes targeted exams where dose is matched to clinical indication); or iterative reconstruction. Contrast material: ISOVUE 370; Contrast volume: 100 ml; Contrast route: INTRAVENOUS (IV); COMPARISON: CT Chest without contrast 04/10/2021 3:24 PM FINDINGS: Pulmonary arteries: Normal. No pulmonary emboli. Aorta: Unremarkable. No aortic aneurysm. No aortic dissection. Lungs: Patchy ground-glass opacities and consolidations in bilateral lungs suspicious for COVID-19 infection. Pleural spaces: Unremarkable. No pneumothorax. No pleural effusion. Heart: Unremarkable. No cardiomegaly. No pericardial effusion. Lymph nodes: Unremarkable. No enlarged lymph nodes. Spleen: Calcified granulomata of the spleen. Bones/joints: Unremarkable. No acute fracture. Soft tissues: Unremarkable. IMPRESSION: No pulmonary embolism. Patchy ground-glass opacities and consolidations in bilateral lungs suspicious for COVID-19 infection. Correlation with lab values. Electronically signed by: Victor Manuel Jose On 07/02/2021 23:20:52 PM
[2021-07-02] MEDS ORDERED: PROAAER10 INH (23:44)
[2021-07-02] MEDS ORDERED: AIRD1INH2 INH (23:44)
[2021-07-02] MEDS ORDERED: ESTR2TAB2 PO (23:44)
[2021-07-02] MEDS ORDERED: D3 H2000 PO (23:44)
[2021-07-02] MEDS ORDERED: ASPI-161 PO (23:44)
[2021-07-02] MEDS ORDERED: LISI2.5T9 PO (23:44)
[2021-07-02] MEDS ORDERED: OMEP-221 PO (23:44)
[2021-07-02] MEDS ORDERED: SIMV40TA20 PO (23:44)
[2021-07-02] MEDS ORDERED: ADME100I SC (23:44)
[2021-07-02] MEDS ORDERED: GLUCOSE 4GM CHEW TABLET PO PRN (23:45)
[2021-07-02] MEDS ORDERED: HOME MED LIST COMPLETE! XX SCH (23:45)
[2021-07-02] MEDS ORDERED: GLUCAGON INJ 1MG VIAL SC PRN (23:45)
[2021-07-02] MEDS ORDERED: DEXTROSE 50% 50 ML SYRINGE IV PRN (23:45)
[2021-07-03] MEDS ORDERED: ALBUTEROL 90 MCG/ACT 8GM HFA INHALER INH PRN (00:10)
[2021-07-03] MEDS ORDERED: REMDESIVIR 200 MG in NS 250 ML IV ONE (01:30)
[2021-07-03] MEDS ORDERED: SODIUM CHLORIDE 0.9% INJ 10 ML SYR IV ONE (03:30)
[2021-07-03] MEDS: ADVAIR HFA 115/21MCG INHALER INH SCH (07:30)
[2021-07-03] MEDS: HumaLOG INSULIN (NovoLOG) PER UNIT SC SCH ×4 (07:30→17:30)
[2021-07-03 07:55] LABS: ALBUMIN 2.3 GM/DL (3.2-5.2); ALT/SGPT 20 U/L (12-78); BILIRUBIN,DIRECT 0.2 MG/DL (0.0-0.2); BILIRUBIN,TOTAL 0.5 MG/DL (0.2-1.0); BLOOD UREA NITROGEN 23 MG/DL (7-18); CALCIUM LEVEL 7.9 MG/DL (8.5-10.1); CARBON DIOXIDE LEVEL 23 MEQ/L (21-32); CHLORIDE LEVEL 102 MEQ/L (98-107); GLOMERULAR FILTRATION RATE > 60.0 (>56); GLUCOSE, FASTING 246 MG/DL (70-100); MAGNESIUM LEVEL 2.1 MG/DL (1.8-2.4); POTASSIUM SERUM 4.6 MEQ/L (3.5-5.1); SODIUM LEVEL 136 MEQ/L (136-145); TOTAL PROTEIN 5.9 GM/DL (6.4-8.2)
[2021-07-03] MEDS: ENOXAPARIN 60MG/0.6ML SYRINGE (J1650 PER 10MG) SC SCH (08:12)
[2021-07-03] MEDS: OMEPRAZOLE 20 MG CAP PO SCH (08:12)
[2021-07-03] MEDS: estradioL 1 MG TAB PO SCH (08:12)
[2021-07-03] MEDS: ASPIRIN 81MG ENTERIC TABLET PO SCH (08:12)
[2021-07-03] MEDS: SIMVASTATIN 40 MG TAB PO SCH (08:12)
[2021-07-03] MEDS: dexameTHASONE 4 MG/ML 1ML VIAL (J1100 PER 1MG) IV SCH (08:14)
[2021-07-03 08:22] LABS: HEMATOCRIT 38.6 % (42.0-52.0); HEMOGLOBIN 12.9 g/dl (13.5-17.5); MEAN CORPUSCULAR HEMOGLOBIN 30.3 pg (27.0-33.0); MEAN CORPUSCULAR HGB CONC 33.4 g/dl (32.0-36.5); MEAN CORPUSCULAR VOLUME 90.6 fl (80.0-96.0); PLATELET COUNT, AUTOMATED 272 10^3/uL (150-450); RED BLOOD COUNT 4.26 10^6/uL (4.30-6.10); WHITE BLOOD COUNT 6.7 10^3/uL (4.0-10.0)
[2021-07-03] MEDS: LISINOPRIL *2.5 MG* TAB PO SCH (08:23)
[2021-07-03 08:59] LABS: LYMPHOCYTES 13 % (16-44); MONOCYTES 1 % (0-5); NEUTROPHILS 83 % (28-66); PLATELET ESTIMATE NORMAL (NORMAL)
--- NOTE | 2021-07-03 13:59 | IPN ---
PROGRESS NOTE DATE: 07/03/2021 SUBJECTIVE: Patient seen and examined at the bedside. Chart has been reviewed. Patient complains of shortness of breath, cough productive of white sputum without fever, chills, nausea, vomiting, anosmia, loss of taste, loss of appetite, diarrhea, headaches, muscle pains or joint pains. Patient is still saturating 85% on room air. Temperature 99.8, pulse 92, respiratory rate 20, blood pressure 153/71, 87% on room air. GENERAL: Patient is awake, alert, oriented times three. Answering questions appropriately. No cyanosis, icterus, or distress. No use of respiratory accessory muscles. Able to complete his sentences. LUNGS: Diminished. Bilateral fine crackles. HEART: S1, S2, sinus rhythm. ABDOMEN: Soft, nontender, nondistended. EXTREMITIES: No cyanosis, clubbing, or pitting edema. Laboratory data, imaging studies, microbiology have been reviewed. ASSESSMENT AND PLAN: This is a 56-year-old with a history of coronary artery disease (CAD), asthma, gastroesophageal reflux disease (GERD), hypothyroidism, type 1 diabetic with worsening shortness of breath for 2-3 weeks, found to have coronavirus. IMPRESSION: 1. Acute hypoxia secondary to coronavirus pneumonia. 2. Coronavirus pneumonia. 3. type 1 diabetes. 4. History of asthma, not in exacerbation. 5. Gastroesophageal reflux disease (GERD). 6. Hyperlipidemia. 7. Hypertension. 8. Transgender. 9. Coronary artery disease. PLAN: Patient is continued on his home medications. Lovenox has been added due to the hypercoagulable state of coronavirus at 50 mg subcutaneous every 12 hours. Patient is on remdesivir, Decadron, supplemental oxygen to keep saturations above 90%. He is on insulin sliding-scale consistent-carbohydrate diet with fingersticks before every meal and at bedtime with coverage. Will monitor patient for worsening asthma. Currently not in exacerbation.
[2021-07-03] MEDS ORDERED: HumaLOG INSULIN (NovoLOG) PER UNIT SC SCH (21:00)
[2021-07-04] MEDS: estradioL 1 MG TAB PO SCH ×3 (01:23→20:51)
[2021-07-04] MEDS: REMDESIVIR 100 MG in NS 250 ML IV SCH ×2 (01:32→23:37)
[2021-07-04] MEDS: HumaLOG INSULIN (NovoLOG) PER UNIT SC SCH ×3 (07:30→19:13)
[2021-07-04] MEDS: ADVAIR HFA 115/21MCG INHALER INH SCH ×2 (08:00→21:01)
[2021-07-04] MEDS: ENOXAPARIN 60MG/0.6ML SYRINGE (J1650 PER 10MG) SC SCH ×3 (09:00→20:52)
[2021-07-04 09:08] LABS: BASO % 0.2 % (0.0-1.0); HEMATOCRIT 42.2 % (42.0-52.0); HEMOGLOBIN 13.9 g/dl (13.5-17.5); LYMPH # 0.9 10^3/uL (1.5-5.0); MEAN CORPUSCULAR HEMOGLOBIN 29.9 pg (27.0-33.0); MEAN CORPUSCULAR HGB CONC 32.9 g/dl (32.0-36.5); MEAN CORPUSCULAR VOLUME 90.8 fl (80.0-96.0); MONO # 0.8 10^3/uL (0.0-0.8); MONO % 7.3 % (2.0-8.0); NEUTROPHILS # 9.4 10^3/uL (1.5-8.5); NEUTROPHILS % 82.4 % (36.0-66.0); PLATELET COUNT, AUTOMATED 352 10^3/uL (150-450); RED BLOOD COUNT 4.65 10^6/uL (4.30-6.10); WHITE BLOOD COUNT 11.4 10^3/uL (4.0-10.0)
[2021-07-04] MEDS: ASPIRIN 81MG ENTERIC TABLET PO SCH (09:10)
[2021-07-04] MEDS: SIMVASTATIN 40 MG TAB PO SCH (09:11)
[2021-07-04] MEDS: dexameTHASONE 4 MG/ML 1ML VIAL (J1100 PER 1MG) IV SCH (09:11)
[2021-07-04] MEDS: OMEPRAZOLE 20 MG CAP PO SCH (09:11)
[2021-07-04] MEDS: LISINOPRIL *2.5 MG* TAB PO SCH (09:11)
[2021-07-04 09:26] LABS: ALBUMIN 2.4 GM/DL (3.2-5.2); ALT/SGPT 18 U/L (12-78); BILIRUBIN,DIRECT 0.2 MG/DL (0.0-0.2); BILIRUBIN,TOTAL 0.5 MG/DL (0.2-1.0); BLOOD UREA NITROGEN 19 MG/DL (7-18); CALCIUM LEVEL 8.2 MG/DL (8.5-10.1); CARBON DIOXIDE LEVEL 23 MEQ/L (21-32); CHLORIDE LEVEL 104 MEQ/L (98-107); CPK CREATINE PHOSPHOKINASE 53 U/L (39-308); FERRITIN 724 NG/ML (26-388); GLOMERULAR FILTRATION RATE > 60.0 (>56); GLUCOSE, FASTING 211 MG/DL (70-100); LDH LACTATE DEHYDROGENASE 343 U/L (87-241); MAGNESIUM LEVEL 2.1 MG/DL (1.8-2.4); NT-PRO BNP 184 PG/ML (<125); POTASSIUM SERUM 4.8 MEQ/L (3.5-5.1); SODIUM LEVEL 136 MEQ/L (136-145); TOTAL PROTEIN 6.1 GM/DL (6.4-8.2); TROPONIN I < 0.02 NG/ML (< 0.10)
[2021-07-04 09:28] LABS: INR 1.15; PROTHROMBIN TIME 15.2 SECONDS (12.7-14.5)
[2021-07-04 09:29] LABS: PARTIAL THROMBOPLASTIN TIME 35.1 SECONDS (25.9-37.0)
[2021-07-04 16:15] VITALS: BP 132/70
--- NOTE | 2021-07-04 16:41 | IPN ---
PROGRESS NOTE DATE: 07/04/2021 Patient was found to be increasingly hypoxic but nursing has noted that he removed his supplemental oxygen. He still complains of cough, generalized fatigue, weakness, and malaise. Significant hypoxia with ambulation. Had a maximum temperature (T-max) of 101.6 last night. Cough productive of white sputum with elevated white count of 11.1 this morning and bandemia of 3. PHYSICAL EXAMINATION: T-max 101.6, current temperature 100.6, pulse 102, respiratory rate 20, blood pressure 170/80, 94% on 6 liters nasal cannula. Generally: Patient is awake, alert, oriented to person, place, and time. There is no use of accessory respiratory muscles. No cyanosis. Patient is in no distress. Lungs: Diminished. Bilateral crackles. Heart: S1, S2, sinus tachycardia. Abdomen: Soft, nontender, nondistended. Positive bowel sounds. Extremities: No cyanosis, clubbing, or any pitting edema. Laboratory data, microbiology, imaging studies have been reviewed. ASSESSMENT AND PLAN: This is a 56-year-old male with complaints of 2-3 weeks of worsening shortness of breath found to have Coronavirus pneumonia. IMPRESSION: 1. Acute hypoxic respiratory failure requiring supplemental oxygen secondary to Coronavirus pneumonia. 2. Coronavirus pneumonia with bandemia, persistent fevers. 3. Type 1 diabetes. 4. History of asthma, not in exacerbation. 5. Gastroesophageal reflux disease (GERD). 6. Dyslipidemia. 7. Hypertension. 8. Coronary artery disease. PLAN: Due to significant bandemia, recurrent fevers, and elevated procalcitonin, patient will be started on ceftriaxone and doxycycline for presumed secondary bacterial infection. He is continued on remdesivir, Decadron, Advair, albuterol, Combivent. Deep venous thrombosis (DVT) prophylaxis with Lovenox and aspirin. Continued on insulin sliding scale. Supplemental oxygen to keep saturations above 90%.
--- NOTE | 2021-07-04 17:58 | IPNPDOC ---
Date Seen The patient was seen on 07/04/21. Progress Note Due to pcn allergy and possible cross-reactivity, pt's abx changed to avelox. Due to worsening hypoxemia, vapotherm to keep o2 sat 90%. VS, I&O, 24H, [facility] Vital Signs/I&O Vital Signs Date Time Temp Pulse Resp B/P (MAP) Pulse Ox O2 Delivery O2 Flow Rate FiO2 07/04/21 16:15 98.3 104 24 132/70 (90) 94 Non-Rebreather 15.0 I&O- Last 24 Hours up to 6 AM 07/04/21 06:00 Intake Total 590 ml Balance 590 ml Laboratory Data 24H LABS Laboratory Tests 2 07/03/21 18:46: Bedside Glucose (Misc Panel) 258H 07/04/21 08:39: Immature Granulocyte % (Auto) 2.1, Neutrophils (%) (Auto) 82.4H, Lymphocytes (%) (Auto) 8.0L, Monocytes (%) (Auto) 7.3, Eosinophils (%) (Auto) 0.0, Basophils (%) (Auto) 0.2, Neutrophils # (Auto) 9.4H, Lymphocytes # (Auto) 0.9L, Monocytes # (Auto) 0.8, Eosinophils # (Auto) 0.0, Basophils # (Auto) 0.0, Nucleated Red Blood Cells % (auto) 0.0, Prothrombin Time 15.2H, Prothromb Time International Ratio 1.15, Activated Partial Thromboplast Time 35.1, Fibrinogen 690H, Anion Gap 9, Glomerular Filtration Rate > 60.0, Calcium Level 8.2L, Magnesium Level 2.1, Ferritin 724H, Total Bilirubin 0.5, Direct Bilirubin 0.2, Aspartate Amino Transf (AST/SGOT) 13, Alanine Aminotransferase (ALT/SGPT) 18, Alkaline Phosphatase 82, Lactate Dehydrogenase 343H, Total Creatine Kinase 53, Troponin I < 0.02, HH-Dle-Y-Type Natriuretic Peptide 184H, Total Protein 6.1L, Albumin 2.4L, Albumin/Globulin Ratio 0.6, Procalcitonin 0.73 07/04/21 08:47: Bedside Glucose (Misc Panel) 236H CBC/BMP Laboratory Tests 07/04/21 08:39 TIM GALLEGOS MD Jul 04, 2021 17:58
[2021-07-04 18:11] LABS: ABG BASE EXCESS -12.9 (-2.0-2.0); ABG HCO3 11.6 MEQ/L (22.0-26.0); ABG O2 SATURATION 92.7 % (95.0-99.0); ABG PARTIAL PRESSURE CO2 24.4 mmHg (35.0-45.0); ABG STANDARD HCO3 14.5 MEQ/L (22.0-26.0); ABG TOTAL CO2 12.4 MEQ/L (22.0-29.0); ABG pH (ARTERIAL) 7.296 UNITS (7.350-7.450)
[2021-07-04] MEDS: MOXIFLOXACIN HCL 400 MG in IV 1 EA IV SCH (19:09)
[2021-07-04 19:24] VITALS: BP 126/63
[2021-07-04 19:53] LABS: OSMOLALITY URINE 780 MOSM/KG (50-1400)
[2021-07-04] MEDS ORDERED: HumaLOG INSULIN (NovoLOG) PER UNIT SC PRN (19:55)
[2021-07-04 20:03] LABS: POTASSIUM RANDOM URINE 30.9 MEQ/L
[2021-07-04] MEDS: SODIUM CHLORIDE 0.9% INJ 10 ML SYR IV SCH ×2 (20:51→23:37)
[2021-07-04 20:57] LABS: GLUCOSE,RANDOM URINE 3694 MG/DL (<30); UREA NITROGEN RANDOM URINE 531 MG/DL
[2021-07-04] MEDS ORDERED: NS 1,000 ML IV ONE (21:15)
[2021-07-04] MEDS ORDERED: INSULIN REGULAR IN 0.9 % NACL 100 UNIT in IV 1 EA IV SCH ×2 (21:45)
--- NOTE | 2021-07-04 21:45 | IPNPDOC ---
Text Note Date of Service The patient was seen on 07/04/21. NOTE TIME OF SERVICE 944PM Per d/w Papito Lucas the patient's labs appear c/w DKA. At the time of my assessment the patient admitted to feeling thirst and urinating a lot. #DKA likely triggered by COVID Plan: transfer to to ICU /NPO / hold insulin pump / Insulin drip per protocol/ NS @ 250ml/H w KCl / f/u blood cx, / f/u accuchecks Q1H, BMP Q4H, venous PH Q4H, osmol Q4H, Mag Q4H, phosphorus Q4H/ OSEI RON MD Jul 04, 2021 21:45
[2021-07-04 22:36] LABS: VENOUS HCO3 11.2 MEQ/L (23.0-27.0); VENOUS O2 SATURATION 71.3 % (60.0-80.0); VENOUS PARTIAL PRESSURE CO2 31.3 mmHg (38.0-50.0); VENOUS PARTIAL PRESSURE O2 42.1 mmHg (30.0-50.0); VENOUS PH 7.173 UNITS (7.330-7.430); VENOUS STANDARD HCO3 12.1 MEQ/L; VENOUS TOTAL CO2 12.2 MEQ/L (24.0-28.0)
[2021-07-04 22:56] LABS: HEMOGLOBIN A1c 9.7 %
[2021-07-04] MEDS: POTASSIUM CHLORIDE INJ 30 MEQ in NS 1,000 ML IV SCH (23:02)
[2021-07-04 23:09] VITALS: BP 131/70
[2021-07-04 23:18] LABS: OSMOLALITY SERUM 308 MOSM/KG (275-295)
[2021-07-04 23:32] VITALS: BP 133/67
[2021-07-04 23:45] LABS: BLOOD UREA NITROGEN 20 MG/DL (7-18); CALCIUM LEVEL 7.6 MG/DL (8.5-10.1); CARBON DIOXIDE LEVEL 14 MEQ/L (21-32); CHLORIDE LEVEL 105 MEQ/L (98-107); CREATININE FOR GFR 0.81 MG/DL (0.70-1.30); GLOMERULAR FILTRATION RATE > 60.0 (>56); GLUCOSE, FASTING 292 MG/DL (70-100); PHOSPHORUS LEVEL 2.7 MG/DL (2.5-4.9); POTASSIUM SERUM 5.4 MEQ/L (3.5-5.1); SODIUM LEVEL 136 MEQ/L (136-145); TROPONIN I < 0.02 NG/ML (< 0.10)
[2021-07-05] VITALS (8 sets, daily range): BP systolic 116–147; BP diastolic 58–71
[2021-07-05] MEDS ORDERED: INSULIN REGULAR 100UNITS IN 0.9% SODIUM CHLORIDE 100ML IVBAG As Ordered ONE (00:41)
[2021-07-05 02:04] LABS: VENOUS BASE EXCESS -16.7 (-2.0-2.0); VENOUS HCO3 8.5 MEQ/L (23.0-27.0); VENOUS O2 SATURATION 98.5 % (60.0-80.0); VENOUS PARTIAL PRESSURE CO2 20.4 mmHg (38.0-50.0); VENOUS PARTIAL PRESSURE O2 136.7 mmHg (30.0-50.0); VENOUS STANDARD HCO3 12.1 MEQ/L; VENOUS TOTAL CO2 9.2 MEQ/L (24.0-28.0)
[2021-07-05] MEDS: INSULIN IV RATE CHANGE DOCUMENTATION ML/HR XX SCH ×5 (02:05→07:05)
[2021-07-05 02:23] LABS: BLOOD UREA NITROGEN 18 MG/DL (7-18); CALCIUM LEVEL 7.4 MG/DL (8.5-10.1); CARBON DIOXIDE LEVEL 11 MEQ/L (21-32); CHLORIDE LEVEL 109 MEQ/L (98-107); CREATININE FOR GFR 0.75 MG/DL (0.70-1.30); GLOMERULAR FILTRATION RATE > 60.0 (>56); GLUCOSE, FASTING 232 MG/DL (70-100); PHOSPHORUS LEVEL 2.2 MG/DL (2.5-4.9); POTASSIUM SERUM 4.9 MEQ/L (3.5-5.1); SODIUM LEVEL 138 MEQ/L (136-145)
[2021-07-05 02:26] LABS: OSMOLALITY SERUM 299 MOSM/KG (275-295)
[2021-07-05] MEDS: D5W/0.45% SODIUM CHLORIDE 1,000 ML IV SCH ×2 (04:14→08:22)
[2021-07-05] MEDS: POTASSIUM CHLORIDE INJ 30 MEQ in NS 1,000 ML IV SCH (05:06)
[2021-07-05 06:25] LABS: VENOUS BASE EXCESS -10.7 (-2.0-2.0); VENOUS HCO3 14.7 MEQ/L (23.0-27.0); VENOUS O2 SATURATION 92.4 % (60.0-80.0); VENOUS PARTIAL PRESSURE CO2 31.5 mmHg (38.0-50.0); VENOUS PARTIAL PRESSURE O2 70.3 mmHg (30.0-50.0); VENOUS PH 7.287 UNITS (7.330-7.430); VENOUS TOTAL CO2 15.7 MEQ/L (24.0-28.0)
[2021-07-05 06:31] LABS: BASO % 0.4 % (0.0-1.0); HEMATOCRIT 37.4 % (42.0-52.0); LYMPH # 0.5 10^3/uL (1.5-5.0); LYMPH % 4.4 % (24.0-44.0); MEAN CORPUSCULAR HEMOGLOBIN 29.6 pg (27.0-33.0); MEAN CORPUSCULAR HGB CONC 32.1 g/dl (32.0-36.5); MEAN CORPUSCULAR VOLUME 92.3 fl (80.0-96.0); MONO # 0.9 10^3/uL (0.0-0.8); MONO % 8.4 % (2.0-8.0); NEUTROPHILS # 9.5 10^3/uL (1.5-8.5); NEUTROPHILS % 85.2 % (36.0-66.0); PLATELET COUNT, AUTOMATED 339 10^3/uL (150-450); RED BLOOD COUNT 4.05 10^6/uL (4.30-6.10); WHITE BLOOD COUNT 11.1 10^3/uL (4.0-10.0)
[2021-07-05 06:56] LABS: OSMOLALITY SERUM 296 MOSM/KG (275-295)
[2021-07-05 06:58] LABS: BLOOD UREA NITROGEN 17 MG/DL (7-18); CALCIUM LEVEL 7.6 MG/DL (8.5-10.1); CARBON DIOXIDE LEVEL 18 MEQ/L (21-32); CHLORIDE LEVEL 113 MEQ/L (98-107); CREATININE FOR GFR 0.75 MG/DL (0.70-1.30); GLOMERULAR FILTRATION RATE > 60.0 (>56); GLUCOSE, FASTING 182 MG/DL (70-100); MAGNESIUM LEVEL 2.2 MG/DL (1.8-2.4); PHOSPHORUS LEVEL 1.6 MG/DL (2.5-4.9); POTASSIUM SERUM 4.8 MEQ/L (3.5-5.1); SODIUM LEVEL 140 MEQ/L (136-145)
[2021-07-05] MEDS: ADVAIR HFA 115/21MCG INHALER INH SCH ×2 (08:01→20:02)
[2021-07-05] MEDS: dexameTHASONE 4 MG/ML 1ML VIAL (J1100 PER 1MG) IV SCH (08:22)
[2021-07-05] MEDS: ASPIRIN 81MG ENTERIC TABLET PO SCH (08:23)
[2021-07-05] MEDS: LISINOPRIL *2.5 MG* TAB PO SCH (08:23)
[2021-07-05] MEDS: estradioL 1 MG TAB PO SCH ×2 (08:23→21:38)
[2021-07-05] MEDS: SIMVASTATIN 40 MG TAB PO SCH (08:23)
[2021-07-05] MEDS: ENOXAPARIN 60MG/0.6ML SYRINGE (J1650 PER 10MG) SC SCH ×2 (08:24→21:39)
[2021-07-05] MEDS: OMEPRAZOLE 20 MG CAP PO SCH (08:24)
[2021-07-05] MEDS ORDERED: LEVEMIR (INSULIN DETEMIR) 1 UNITS/0.01ML SC ONE (09:00)
[2021-07-05 10:13] LABS: VENOUS BASE EXCESS -6.7 (-2.0-2.0); VENOUS HCO3 19.7 MEQ/L (23.0-27.0); VENOUS PARTIAL PRESSURE CO2 42.8 mmHg (38.0-50.0); VENOUS PARTIAL PRESSURE O2 43.6 mmHg (30.0-50.0); VENOUS PH 7.281 UNITS (7.330-7.430); VENOUS STANDARD HCO3 18.7 MEQ/L
--- NOTE | 2021-07-05 10:42 | IPNPDOC ---
Date Seen The patient was seen on 07/05/21. Progress Note SUBJECTIVE: Pt was emergently transferred to icu due to acute metab acidosis due to DKA on insulin iv gtt. pt denies n/v/abd pain this am and requested food. ag closed given levemir insulin, awaiting repeat labs. OBJECTIVE: PHYSICAL EXAMINATION: vitals: see below General: supine no distress HEENT: no jvd. disheveled. dry mm Lungs: Diminished. Bilateral crackles. Heart: S1, S2, sinus tachycardia. Abdomen: Soft, nontender, nondistended. Positive bowel sounds. Extremities: No cyanosis, clubbing, or any pitting edema. Laboratory data, microbiology, imaging studies have been reviewed. ASSESSMENT AND PLAN: This is a 56-year-old male with complaints of 2-3 weeks of worsening shortness of breath found to have Coronavirus pneumonia. IMPRESSION: 1. Acute hypoxic respiratory failure requiring supplemental oxygen secondary to Coronavirus pneumonia. 2. Coronavirus pneumonia 3. Type 1 diabetes, DKA, resolved 4. History of asthma, not in exacerbation. 5. Gastroesophageal reflux disease (GERD). 6. Dyslipidemia. 7. Hypertension. 8. Coronary artery disease. 9. Suspected secondary bacterial pneumonia 10. acute metabolic acidosis due to dka. PLAN: required insulin iv gtt yesterday, but improved anion gap today. may dc insulin iv gtt , started on levemir insulin, and consistent carbs diet. monitor electrolytes and supplement as needed. stable on vapotherm. once off insulin iv gt, transfer to covid unit. continue remdesevir, abx due to increased procalcitonin for suspected secondary bacterial pneumonia. VS, I&O, 24H, [facility] Vital Signs/I&O Vital Signs Date Time Temp Pulse Resp B/P (MAP) Pulse Ox O2 Delivery O2 Flow Rate FiO2 07/05/21 09:08 87 Nasal Cannula 5.0 07/05/21 08:45 81 40 07/05/21 08:23 116/58 07/05/21 08:00 97.6 18 I&O- Last 24 Hours up to 6 AM 07/05/21 06:00 Intake Total 2923 ml Output Total 2225 ml Balance 698 ml Laboratory Data 24H LABS Laboratory Tests 2 07/04/21 17:50: Blood Gas Bicarbonate Standard 14.5L, Arterial Blood pH 7.296L, Arterial Blood Partial Pressure CO2 24.4L, Arterial Blood Partial Pressure O2 69.0L, Arterial Blood Total CO2 12.4L, Arterial Blood HCO3 11.6L, Arterial Blood Base Excess - 12.9L, Arterial Blood Oxygen Saturation 92.7L 07/04/21 19:12: Bedside Glucose (Misc Panel) 347H 07/04/21 19:32: Urine Color YELLOW, Urine Appearance CLEAR, Urine pH 5.0, Urine Specific [place] 1.025, Urine Protein 1+H, Urine Glucose (UA) 3+H, Urine Ketones 2+H, Urine Blood 1+H, Urine Nitrite NEGATIVE, Urine Bilirubin NEGATIVE, Urine Urobilinogen 0.2, Urine Leukocyte Esterase NEGATIVE, Urine WBC (Auto) 0, Urine RBC (Auto) 1, Urine Hyaline Casts (Auto) 1, Urine Bacteria (Auto) NEGATIVE, Urine Squamous Epithelial Cells 0, Urine Mucus (Auto) SMALL, Urine Sperm (Auto) , Urine Osmolality 780, Urine Random Creatinine 32.0, Urine Random Sodium 62, Urine Random Potassium 30.9, Urine Random Chloride 25, Urine Random Urea Nitrogen 531, Urine Random Glucose 3694H, Urine Random Calcium 5.0 07/04/21 20:08: Lactic Acid Level 2.7*H, B-Hydroxybutyrate > 46.00H 07/04/21 22:26: Blood Gas Bicarbonate Standard 12.1, Venous Blood pH 7.173L, Venous Blood Partial Pressure CO2 31.3L, Venous Blood Partial Pressure O2 42.1, Venous Blood Total Carbon Dioxide 12.2L, Venous Blood HCO3 11.2L, Venous Blood Oxygen Saturation 71.3, Venous Blood Base Excess -16.0L, Anion Gap 17H, Glomerular Filtration Rate > 60.0, Estimated Mean Plasma Glucose 232H, Hemoglobin A1c 9.7, Osmolality 308H, Lactic Acid Level 2.1*H, Calcium Level 7.6L, Phosphorus Level 2.7, Troponin I < 0.02 07/04/21 22:39: Bedside Glucose (Misc Panel) 275H 07/04/21 23:29: Bedside Glucose (Misc Panel) 281H 07/05/21 00:45: Bedside Glucose (Misc Panel) 271H 07/05/21 01:57: Blood Gas Bicarbonate Standard 12.1, Venous Blood pH 7.240L, Venous Blood Partial Pressure CO2 20.4L, Venous Blood Partial Pressure O2 136.7H, Venous Blood Total Carbon Dioxide 9.2L, Venous Blood HCO3 8.5L, Venous Blood Oxygen Saturation 98.5H, Venous Blood Base Excess -16.7L, Anion Gap 18H, Glomerular Filtration Rate > 60.0, Osmolality 299H, Lactic Acid Followup at 4 Hours 1.7, Calcium Level 7.4L, Phosphorus Level 2.2L 07/05/21 02:05: Bedside Glucose (Misc Panel) 235H 07/05/21 03:05: Bedside Glucose (Misc Panel) 206H 07/05/21 04:12: Bedside Glucose (Misc Panel) 155H 07/05/21 05:00: Bedside Glucose (Misc Panel) 182H 07/05/21 06:08: Bedside Glucose (Misc Panel) 173H 07/05/21 06:16: Immature Granulocyte % (Auto) 1.6, Neutrophils (%) (Auto) 85.2H, Lymphocytes (%) (Auto) 4.4L, Monocytes (%) (Auto) 8.4H, Eosinophils (%) (Auto) 0.0, Basophils (%) (Auto) 0.4, Neutrophils # (Auto) 9.5H, Lymphocytes # (Auto) 0.5L, Monocytes # (Auto) 0.9H, Eosinophils # (Auto) 0.0, Basophils # (Auto) 0.0, Nucleated Red Blood Cells % (auto) 0.0, Blood Gas Bicarbonate Standard 16.0, Venous Blood pH 7.287L, Venous Blood Partial Pressure CO2 31.5L, Venous Blood Partial Pressure O2 70.3H, Venous Blood Total Carbon Dioxide 15.7L, Venous Blood HCO3 14.7L, Venous Blood Oxygen Saturation 92.4H, Venous Blood Base Excess -10.7L, Anion Gap 9, Glomerular Filtration Rate > 60.0, Osmolality 296H, Calcium Level 7.6L, Phosphorus Level 1.6#L, Magnesium Level 2.2 07/05/21 07:05: Bedside Glucose (Misc Panel) 197H 07/05/21 08:20: Bedside Glucose (Misc Panel) 193H 07/05/21 10:06: 07/05/21 10:07: Blood Gas Bicarbonate Standard 18.7, Venous Blood pH 7.281L, Venous Blood Partial Pressure CO2 42.8, Venous Blood Partial Pressure O2 43.6, Venous Blood Total Carbon Dioxide 21.0L, Venous Blood HCO3 19.7L, Venous Blood Oxygen Saturation 79.0, Venous Blood Base Excess -6.7L CBC/BMP Laboratory Tests 07/04/21 22:26 07/05/21 01:57 07/05/21 06:16 Microbiology Microbiology 07/04/21 Blood Culture, Received Pending TIM GALLEGOS MD Jul 05, 2021 10:36
[2021-07-05 10:48] LABS: BLOOD UREA NITROGEN 17 MG/DL (7-18); CALCIUM LEVEL 7.4 MG/DL (8.5-10.1); CARBON DIOXIDE LEVEL 21 MEQ/L (21-32); CHLORIDE LEVEL 112 MEQ/L (98-107); CREATININE FOR GFR 0.72 MG/DL (0.70-1.30); GLOMERULAR FILTRATION RATE > 60.0 (>56); GLUCOSE, FASTING 208 MG/DL (70-100); PHOSPHORUS LEVEL 1.3 MG/DL (2.5-4.9); POTASSIUM SERUM 4.5 MEQ/L (3.5-5.1); SODIUM LEVEL 137 MEQ/L (136-145)
[2021-07-05 10:51] LABS: OSMOLALITY SERUM 293 MOSM/KG (275-295)
[2021-07-05 11:04] LABS: CORTISOL AM 3.9 UG/DL (4.3-22.4)
[2021-07-05] MEDS ORDERED: DEXTROSE 50% 50 ML SYRINGE IV PRN (12:10)
[2021-07-05] MEDS: HumaLOG INSULIN (NovoLOG) PER UNIT SC SCH ×2 (12:41→16:36)
[2021-07-05] MEDS: MOXIFLOXACIN HCL 400 MG in IV 1 EA IV SCH (17:49)
[2021-07-05] MEDS: NEUTRA-PHOS 1.5 GM PACKET PO SCH ×2 (17:49→21:38)
[2021-07-05] MEDS ORDERED: HumaLOG INSULIN (NovoLOG) PER UNIT SC SCH (21:00)
[2021-07-05] MEDS: LEVEMIR (INSULIN DETEMIR) 1 UNITS/0.01ML SC SCH (21:39)
[2021-07-05] MEDS: REMDESIVIR 100 MG in NS 250 ML IV SCH (21:41)
[2021-07-05] MEDS: SODIUM CHLORIDE 0.9% INJ 10 ML SYR IV SCH (23:06)
[2021-07-06 02:52] LABS: BASO % 0.3 % (0.0-1.0); HEMATOCRIT 33.8 % (42.0-52.0); HEMOGLOBIN 11.3 g/dl (13.5-17.5); LYMPH # 0.4 10^3/uL (1.5-5.0); LYMPH % 4.6 % (24.0-44.0); MEAN CORPUSCULAR HEMOGLOBIN 30.1 pg (27.0-33.0); MEAN CORPUSCULAR HGB CONC 33.4 g/dl (32.0-36.5); MEAN CORPUSCULAR VOLUME 90.1 fl (80.0-96.0); MONO # 0.6 10^3/uL (0.0-0.8); MONO % 7.1 % (2.0-8.0); NEUTROPHILS # 7.4 10^3/uL (1.5-8.5); NEUTROPHILS % 84.7 % (36.0-66.0); PLATELET COUNT, AUTOMATED 347 10^3/uL (150-450); RED BLOOD COUNT 3.75 10^6/uL (4.30-6.10); WHITE BLOOD COUNT 8.8 10^3/uL (4.0-10.0)
[2021-07-06 03:03] LABS: INR 1.16; PROTHROMBIN TIME 15.2 SECONDS (12.7-14.5)
[2021-07-06 03:04] LABS: PARTIAL THROMBOPLASTIN TIME 40.3 SECONDS (25.9-37.0)
[2021-07-06 03:53] LABS: ALBUMIN 1.9 GM/DL (3.2-5.2); ALT/SGPT 16 U/L (12-78); BILIRUBIN,DIRECT 0.2 MG/DL (0.0-0.2); BILIRUBIN,TOTAL 0.4 MG/DL (0.2-1.0); BLOOD UREA NITROGEN 16 MG/DL (7-18); CALCIUM LEVEL 7.2 MG/DL (8.5-10.1); CARBON DIOXIDE LEVEL 21 MEQ/L (21-32); CHLORIDE LEVEL 103 MEQ/L (98-107); CPK CREATINE PHOSPHOKINASE 57 U/L (39-308); CREATININE FOR GFR 0.59 MG/DL (0.70-1.30); FERRITIN 552 NG/ML (26-388); GLOMERULAR FILTRATION RATE > 60.0 (>56); GLUCOSE, FASTING 269 MG/DL (70-100); LDH LACTATE DEHYDROGENASE 291 U/L (87-241); MAGNESIUM LEVEL 2.1 MG/DL (1.8-2.4); NT-PRO BNP 337 PG/ML (<125); POTASSIUM SERUM 4.8 MEQ/L (3.5-5.1); SODIUM LEVEL 135 MEQ/L (136-145); TOTAL PROTEIN 5.2 GM/DL (6.4-8.2); TROPONIN I < 0.02 NG/ML (< 0.10)
[2021-07-06 04:00] VITALS: BP_SYST 117; BP_SYST 133; BP_DIAS 57; BP_DIAS 66
[2021-07-06] MEDS: ADVAIR HFA 115/21MCG INHALER INH SCH (07:52)
[2021-07-06] MEDS: SIMVASTATIN 40 MG TAB PO SCH (08:26)
[2021-07-06] MEDS: NEUTRA-PHOS 1.5 GM PACKET PO SCH ×2 (08:26→12:00)
[2021-07-06] MEDS: ASPIRIN 81MG ENTERIC TABLET PO SCH (08:26)
[2021-07-06] MEDS: OMEPRAZOLE 20 MG CAP PO SCH (08:26)
[2021-07-06] MEDS: estradioL 1 MG TAB PO SCH (08:26)
[2021-07-06 08:27] VITALS: BP 120/63
[2021-07-06] MEDS: dexameTHASONE 4 MG/ML 1ML VIAL (J1100 PER 1MG) IV SCH (08:27)
[2021-07-06] MEDS: LISINOPRIL *2.5 MG* TAB PO SCH (08:27)
[2021-07-06] MEDS: ENOXAPARIN 60MG/0.6ML SYRINGE (J1650 PER 10MG) SC SCH (08:27)
[2021-07-06] MEDS: LEVEMIR (INSULIN DETEMIR) 1 UNITS/0.01ML SC SCH (08:28)
[2021-07-06] MEDS: HumaLOG INSULIN (NovoLOG) PER UNIT SC SCH ×2 (08:28→12:00)
[2021-07-06] MEDS ORDERED: PRED10TA2 PO (10:10)
[2021-07-06] MEDS ORDERED: LEVO750T14 PO (10:10)
[2021-07-06 13:11] LABS: ANTINUCLEAR ANTIBODIES DIRECT Negative (Negative)
--- NOTE | 2021-07-06 14:35 | DSES ---
DISCHARGE SUMMARY DATE OF ADMISSION: 07/02/2021 DATE OF DISCHARGE: 07/06/2021 PRIMARY DISCHARGE DIAGNOSES: 1. Coronavirus pneumonia. 2. Acute hypoxic respiratory failure requiring supplemental oxygen due to Coronavirus pneumonia. 3. Suspected bacterial pneumonia. 4. Diabetic ketoacidosis. 5. Type-1 diabetes. 6. Asthma. 7. Reflux. 8. Dyslipidemia. 9. Hypertension. 10. Coronary artery disease. 11. Acute metabolic acidosis due to DKA. DISCHARGE MEDICATIONS: 1. Insulin pump. 2. Prednisone taper. 3. Levaquin 750 daily. 4. Albuterol 2 puffs every 4 hours as needed. 5. Aspirin 81 mg daily. 6. Cholecalciferol 50 mcg daily. 7. Estradiol 2 mg twice a day. 8. AirDuo RespiClick 1 puff twice a day. 9. Lisinopril 2.5 daily. 10. Prilosec 40 daily. 11. Simvastatin 40 mg daily. HISTORY AND HOSPITAL COURSE: This is a 56-year-old male admitted to the Emergency Room due to worsening cough, shortness of breath. Found to be hypoxic, 85% on room air. Chest x-ray showing bilateral infiltrates and positive for Coronavirus. Patient was given I.V. remdesivir, Decadron, supplemental oxygen, nebulizer treatments and developed significant respiratory distress. Found to have acute metabolic acidosis with respiratory compensation and was evaluated for DKA. Patient had positive acetones and high anion gap metabolic acidosis and was transferred to ICU for insulin drip. Within 24 hours patient's DKA had resolved, anion gap was closed. Patient was started on Levemir twice a day and continued on an insulin sliding scale and transferred back to the COVID Unit. Patient had elevated procalcitonin and was started on antibiotics for a suspected secondary bacterial infection. He has remained afebrile with good control of his glucose and stable anion gap which was normal. CONDITION ON DISCHARGE: Patient is discharged in stable condition. FOLLOW UP: To follow up with his primary care physician within 5 days of discharge. PHYSICAL EXAMINATION: Temperature 97.4, pulse 60, respiratory rate 18, blood pressure 120/63, 95% on 3 liters nasal cannula. Patient drops down to 86% on room air. General: Awake, alert, oriented, no conversational dyspnea. HEENT: Moist mucous membranes. Neck: No JVD or thyromegaly. Lungs: Diminished, bilateral crackles. Heart: S1 and S2 sinus rhythm. Abdomen: Soft, nontender, nondistended, positive bowel sounds. Extremities: No cyanosis, clubbing or pitting edema. LABORATORY DATA/IMAGING STUDIES/MICROBIOLOGY: Have been reviewed and please see the chart. Time spent on discharge: Thirty minutes
[2021-07-08 17:07] LABS: BODY FLUID CULTURE Not indicated. (.); LEGIONELLA ANTIGEN URINE Negative (Negative); ORGANISM ID Not indicated. (.); SPECIMEN SOURCE Urine (.); URINE STREP PNEUMONIAE ANTIGEN Negative (Negative)
== END 2021-07-06 13:37 | disposition home health service (06) | DRG 137 ==
LOC: M ED 19:36 → M ED INP 23:00 → ENRESERV 07-04 14:24 → M 4MAIN 07-04 16:05 → M ICU 07-04 23:26 → M 4MAIN 07-05 16:08
PROVIDERS: ADMIT Internal Medicine; ATTEND Internal Medicine
PROC: 3E0333Z Introduction of Anti-inflammatory into Peripheral Vein, Percutaneous Approach (ICD-10-PCS; principal; 2021-07-03)
PROC: XW033E5 Introduction of Remdesivir Anti-infective into Peripheral Vein, Percutaneous Approach, New Technology Group 5 (ICD-10-PCS; 2021-07-03)
DX: U07.1 COVID-19 (principal); J96.01 Acute respiratory failure with hypoxia; J12.82 Pneumonia due to coronavirus disease 2019; J15.9 Unspecified bacterial pneumonia; E10.10 Type 1 diabetes mellitus with ketoacidosis without coma; J45.909 Unspecified asthma, uncomplicated; K21.9 Gastro-esophageal reflux disease without esophagitis; E78.5 Hyperlipidemia, unspecified; I10 Essential (primary) hypertension; I25.10 Atherosclerotic heart disease of native coronary artery without angina pectoris; E03.9 Hypothyroidism, unspecified; Z87.891 Personal history of nicotine dependence; F64.0 Transsexualism; Z79.82 Long term (current) use of aspirin; Z79.899 Other long term (current) drug therapy; Z88.0 Allergy status to penicillin

== ENCOUNTER → 2021-08-07 | Outpatient (CLI) | payer OTHER ==
[~2021-08-07] MED LIST changes: +AIRD1INH2 INH; +ASPI-161 PO; +D3 H2000 PO; +ESTR2TAB3 PO; +LEVO750T14 PO; +OMEP-221 PO; +PRED10TA2 PO; +PROAAER10 INH
--- NOTE | 2021-08-18 22:07 | DEXAMM ---
INDICATION: VIT D DEFIENCY. COMPARISON: None. TECHNIQUE: Bone density was measured using dual-energy x-ray absorptionmetry (DEXA). FINDINGS: AP SPINE L1-L4 BMD 1.11 g/cm2 Young Adult T-Score -0.7 Age Matched Z-Score 1-0.8. LT FEMUR, TOTAL BMD 1.07 g/cm2 Young Adult T-Score 0.5 Age Matched Z-Score of 0.2. LT NECK BMD 1.02 g/cm2 Young Adult T-Score -0.1 Age Matched Z-Score 0.4. RT FEMUR, TOTAL BMD 1.04 g/cm2 Young Adult T-Score 0.3 Age Matched Z-Score 0.0. RT NECK BMD 0.98 g/cm2 Young Adult T-Score -0.4 Age Matched Z-Score 0.0. IMPRESSION: There is normal bone density of the spine. There is normal bone density of the left hip. There is normal bone density of the right hip. FOLLOW-UP: Recommendation for the next bone density exam: 2 years. <Electronically signed by Den Jaime > 08/18/21 [id number]
== END ==
LOC: M WHC 08:18
PROVIDERS: ATTEND Pediatrics
DX: E55.9 Vitamin D deficiency, unspecified (principal)

== ENCOUNTER 2021-08-28 14:51 | Emergency (ER) | payer OTHER ==
[~2021-08-28] VITALS: Ht 180.3 cm; Wt 100.0 kg
--- OUTSIDE RECORDS SUMMARY | 2021-08-28 15:04 | CCD | Continuity of Care Document ---
Author Author Clayton RODRIGUEZ MD Organization Unknown Address [address] [facility] [place] [address] Phone [phone] Care Team Providers Care Binder Operator Name Role Phone Charisse Saleem MD AUTM [phone] Charisse Cassidy NP AUTM [phone] Celena Mcbride MD AUTM [phone] Problems Active Problems Provider Date Type 2 [...] Means PA-C Onset: 04/11/2016 Asthma Onset: 05/28/2016 Coronary atherosclerosis Onset: 12/03/19 Gastroesophageal reflux disease Onset: 0 05/28/2016 Hyperlipidemia Onset: 10/10/2013 Impotence Onset: 07/14/2019 Social History Type Date Description Comments Sex Unknown Cigarette Use Current Cigarette Smoker 2 Packs Daily Quit March ETOH Use Rarely consumes alcohol Tobacco Use Start: Unknown End: Unknown Patient is a former smoker Smoking Status Reviewed: 07/22/21 Patient is a former smoker Allergies and adverse reactions Active Allergies Criticality Reaction | Severity Comments Date Penicillin Unable to assess criticality 02/23/2013 Medications Active Medications SIG Qnty Indications Ordering Provide r Date Levothyroxine Sodium 137mcg Tablet s Take One Tablet By Mouth Every Day 30tabs E89.0 Daphnie Juarez 06/20/2020 Admelog 100Unit/ML Solution use as directed with pump, maximum daily dose = 80 units 60units E10.65 Cely Higgins NP 05/17/2018 Z96.41 Z91.14 Ketone Test Strips use as directed. 250.03 50units Evelina Rodriguez MD 01/12/2015 Onetouch Ultra Blue Strips use as directed four times a day 100units E10.65 Cely Higgins NP 08/24/2013 Insulin [id number]. Quick Set Paradigm Misc uad with insulin pump-changing Q3Day dia.03/251.2 30units Evelina Rodriguez MD 05/19/2013 Insulin Pump Paradigm [id number] 3.0ML Resevior uad, wit h Insulin Pump, Changing resevoir Q3Days 30units Evelina Rodriguez MD 05/19/2013 Aspirin 81mg Tablets 1 by mouth daily 30tabs Evelina Rodriguez MD 02/23/2013 Simvastatin 40mg Tablets 1 tab by mouth once daily. 30tabs Evelina Rodriguez MD Estradiol 2mg Tablets 1 by mouth every day Unknown Omeprazole 40mg Capsules DR 1 by mouth every day Unknown Vitamin D3 50mcg (1999 Ut) Capsule s 1 by mouth every day Unknown Immunizations Description No Information Available Vital Signs Date Vital Result Comment 07/22/2021 9:53am BP Systolic 118 mmHg BP Diastolic 64 mmHg Heart Rate 91 /min Height 70 inches 5'10" Weight 205.25 lb BMI (Body Mass Index) 29.4 kg/m2 O2 % BldC Oximetry 97 % 03/21/2021 2:31pm BP Systolic 115 mmHg BP Diastolic 75 mmHg Heart Rate 69 /min Body Temperature 97.7 F Height 70 inches 5'10" Weight 220.00 lb BMI (Body Mass Index) 31.6 kg/m2 O2 % BldC Oximetry 92 % Results Test Acquired Date Facility Test Result H/L Range Note Laboratory test finding 07/22/2021 In House Glucose 171 Hemoglobin A1c 10.2 Laboratory test finding 06/03/2021 [facility] l [facility] [address] [place] [address] (911)- - Testosterone 20 ng/dL Low 241-827 1 Estradiol Sensitive LC/MS 139.5 pg/mL High 8.0-35.0 2 Lipid Panel 06/03/2021 [facility] ntr [address] [place] [address] (315)- - Triglycerides Level 64 mg/dL Normal <150 Cholesterol Level 150 mg/dL Normal <200 HDL Cholesterol 66 mg/dL Normal >40 LDL Cholesterol 71 mg/dL Normal <100 Non-HDL-C 84 mg/dL Normal Cholesterol Risk Ratio 2.272 Normal <5 Complete Blood Count 06/03/2021 [facility] entr [address] [place] [address] (871)- - White Blood Count 6.3 10 Normal 4.0-10.0 Red Blood Count 4.46 10 Normal 4.30-6.10 Hemoglobin 13.5 g/dL Normal 13.5-17.5 Hematocrit 41.3 % Low 42.0-52.0 Mean Corpuscular Volume 92.6 fl Normal 80.0-96.0 Mean Corpuscular Hemoglobin 30.3 pg Normal 27.0-33.0 Mean Corpuscular HGB Conc 32.7 g/dL Normal 32.0-36.5 Red Cell Distribution Width 13.5 % Normal 11.5-14.5 Platelet Count, Automated 237 10 Normal 150-450 Nucleated Red Blood Cell % 0.0 % Normal 0-0 Urine Micro/Creat Ratio Random 06/03/2021 [facility] [address] [place] [address] (315)- - Creatinine, Urine 49.8 mg/dL Normal Malb Urine Siemens < 5.0 mg/L Normal Alberto/Creat Ratio 10.0 MCG/MG Normal 0.0-30.0 3 Laboratory test finding 03/21/2021 In House Glucose 213 Hemoglobin A1c 8.5% 1 NORMAL RANGES ARE FOR ADULT FEMALES (OVER 15 YRS) AND MALES (OVER 19 YRS). FOR PEDIATRIC RANGES PLE ASE CONSULT LITERATURE. 2 This test was developed and its performance characteristics determined by [facility]. It has not been cleared by the Food and Drug Administration. Methodology: Liquid chromatography tandem mass spectrometry(LC/MS/MS) Performed at: [address] [id number] Registered Dietetic Technician: Marlys Jin MD, Phone: [phone] THE [place] DI[employer] ASSOC[employer] ATION STATES THAT MICROALBUMINURIA IS PRESENT IF THE MICROALBUMIN/CREATININE RATIO EXCEEDS 30 MCG/MG. THE THRESHOLD FOR CLINICAL ALBUMINURIA IS REACHED AT 300 MCG/MG. THE CLASSIFICATION OF A PATIENT SHOULD BE BASED UPON AT LEAST 2 OF 3 ABNORMAL RESULTS ON SPECIMENS COLLECTED WITHIN A 3 TO 6 MONTH TIME FRAME. Procedures Date Code Description Status 07/22/2021 49000 Office/Outpatient Established Mo d MDM 30-39 Min Completed 07/22/2021 [id number] Diabetic Foot Exam Completed 03/21/2021 19071 Office/Outpatient Established Mo d MDM 30-39 Min Completed 03/21/2021 63696 Amb Glucose Monitoring Interpret ation And Report Completed Medical Devices Description No Information Available Encounters Type Date Location Provider Dx Diagnosis Office Visit 07/22/2021 9:45a DR. Evelina Rodriguez MD E 10.65 Type 1 diabetes mellitus with hyperglycemia E89.0 Postprocedural hypothyroidis m F64.9 Gender identity disorder, un specified Office Visit 03/21/2021 2:30p DR. Evelina Rodriguez MD E 10.65 Type 1 diabetes mellitus with hyperglycemia F64.9 Gender identity disorder, un specified E89.0 Postprocedural hypothyroidis m Assessments Date Code Description Provider 07/22/2021 E10.65 Type 1 diabetes mellitus with hy perglycemia Evelina Rodriguez MD 07/22/2021 E89.0 Postprocedural hypothyroidism Cl eric Rodriguez MD 07/22/2021 F64.9 Gender identity disorder, unspec ified Evelina Rodriguez MD 06/21/2021 E10.65 Type 1 diabetes mellitus with hy perglycemia Evelina Rodriguez MD 06/21/2021 F64.9 Gender identity disorder, unspec ified Evelina Rodriguez MD 06/21/2021 E89.0 Postprocedural hypothyroidism Cl eric Rodriguez MD 03/21/2021 E10.65 Type 1 diabetes mellitus with hy perglycemia Evelina Rodriguez MD 03/21/2021 F64.9 Gender identity disorder, unspec ified Evelina Rodriguez MD 03/21/2021 E89.0 Postprocedural hypothyroidism Cl eric Rodriguez MD Plan of Treatment Future Appointment(s):* 10/25/2021 11:30 am - Evelina Rodriguez MD at DR. Evelina Rodriguez 07/22/2021 - Evelina Rodriguez MD* E10.65 Type 1 diabetes mellitus with hyperglycemia* Comments:* in office a1c =10.2 up from 8.5%Random blood sugar =213 - after 10 ma and m to not bottom out.past a1c= 8.3, up slightly 7.7 , down from 8.1, 8.4%, 8.6% 9.3% ,9.4%, 7.9%, 8.5%, 9Pump download and CGM:Only the last 30 days downloaded.He is an auto mode 83% of the timeWears the sensor most days.Average blood sugar = 155Total daily insulin 47 unitsBasal bolus 52% 48%Average carbs 200-400Time in range 72%Looking at the day today CGM when he has reasonable amount of carbohydrates he is under good control. However when he starts having cream of wheat he needs to double the amount of carbs that he enters and he puts in 160 g of starch. He has a profound spike in his blood sugar and then goes low later. This is seen repetitively on the recent download. As a result when he goes low he eats and goes high and then pulls his late results and lows again. We have been through this in the past and if explained to him to enter the bolus at the time of the meal.We've decided to set at times target for when he is high to avoid the lows. Patient was shown how to do this daily. She set a 12 hour times target.\\ * Follow up:* lab++++, pump - 3 months-- * E89.0 Postprocedural hypothyroidism* Comments:* Hypothyroid after CHATTERJEE for Grave's disease 04/10/2020:01/18/2020- TSH: <0.005 02/04/2020- TSH= <0.005, FT4= 2.83, TT3= 241.6, TPO= 86.5, TSI=7.79tsh=0.1. FT4= 0.63 Became hypot hyroid:06/20/2020: TSH= 13 FT4=0.3normal labs 1Current:medication:Levothyroxine 137 ug daily * F64.9 Gender identity disorder, unspecified* Comments:* 300 pages of medical records were reviewed from [facility] regarding his transgendered care. Review of records: We received a note from his PCP December. We were unaware that the patient was undergoing sexual reassignment gender transition. He had never mentioned his hormone therapy before. He now identi fies as a female and [facility] [place]. Labs from [facility] pulled and reviewed:08/2019 :adivp=494 ttehdxcgj=556:eelnr=346 dxbjjmyib=6475/2019 :uzypx=638 iogoswhxq=86723/ vrgeo=7527 fmymwrjje=309 testo =984 wqjzzgcvu=446Pi remains her relationship with a female. He [...] them due to a conflict with the secretary of police.Records demonstrate that he has failed first-line therapy with estrogen and finasteride. Per the endocrine guidelines from 2009 and the update from 2020: Patient's first-line therapy should be on GNRh [...] Current medication: Estradiol 2 mg a day, ( of lupron after surgery)Status post orchiectomy February 19, 2021.According to WPATH:The Standards of CareVERSION 7World Professional Association for Transgender HealthCriteria for for orchiectomy in MtF patients:1. Persistent, well-documented gender dysphoria;2. Capacity to make a fully informed decision and to consent for treatment;3. Age of majority in a given country;4. If significant medical or mental health concerns are present, they must be well controlled.5. 12 continuous months of hormone therapy as appropriate to the patients gender goals (unlesshormones are not clinically indicated for the individual).The aim of hormone therapy prior to gonadectomy is primarily to introduce a period of reversibleestrogen or testosterone suppression, before the patient undergoes irreversible surgical intervention. Labs reviewed from April 20:Testosterone = 20, estradiol = 140LDL = 71, HDL = 66, triglycerides = 64Hemoglobin hematocrit = 13/41Microalbumin ratio = 10 Functional Status Description No Information Available Mental Status Description No Information Available Referrals Refer to Reason for Referral Status Appt Date Evelina Rodriguez MD DM Created [facility], [address] [place] [address] [phone]
--- OUTSIDE RECORDS SUMMARY | 2021-08-28 15:04 | CCD | Continuity of Care Document ---
Author Author Clayton RODRIGUEZ MD Organization Unknown Address [address] [facility], [address] [place] [address] Phone [phone] Care Team Providers Care Hat Band Attacher Name Role Phone Charisse Saleem MD AUTM [phone] Charisse Cassidy NP AUTM [phone] Celena Mcbride MD AUTM [phone] Problems Active Problems Provider Date Type 2 diabetes mellitus Onset: 02/24/20 13 Noncompliance with treatment Evelina Rodriguez MD Onset: 02/19 Hypoglycemia Evelina Rodriguez MD Onset: 02/24/2013 Tobacco user Evelina Rodriguez MD Onset: 02/24/2013 Type 1 diabetes mellitus uncontrolled Evelina Rodriguez MD On set: 07/19/2013 Insulin Pump Status Evelina Rodriguez MD Onset: 2014 Disorder of nervous system due to diabetes mellitus Evelina Rodriguez MD Onset: 11/02/2014 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 Quick Set Paradigm Misc uad with insulin [...] Hemoglobin A1c 10.2 Laboratory test finding 06/03/2021 [facility] l Cent[facility] [address] [place] [address] (918)- - Testosterone 20 ng/dL Low 241-827 1 Estradiol Sensitive LC/MS 139.5 pg/mL High 8.0-35.0 2 Lipid Panel 06/03/2021 [facility] ntr [address] [place] [address] (315)- - Triglycerides Level 64 mg/dL Normal <150 Cholesterol Level 150 mg/dL Normal <200 HDL Cholesterol 66 mg/dL Normal >40 LDL Cholesterol 71 mg/dL Normal <100 Non-HDL-C 84 mg/dL Normal Cholesterol Risk Ratio 2.272 Normal <5 Complete Blood Count 06/03/2021 [facility] entr [address] [place] [address] (970)- - White Blood Count 6.3 10 Normal [...] Normal 0-0 Urine Micro/Creat Ratio Random 06/03/2021 [facility] [address] [place] [address] (315)- - Creatinine, Urine 49.8 mg/dL Normal [...] developed and its performance characteristics determined by [facility]. It has not been cleared by the Food and Drug Administration. Methodology: Liquid chromatography tandem mass spectrometry(LC/MS/MS) Performed at: [address] [id number] Assistance Specialist: Marlys Jin MD, Phone: [phone] THE [place] DIABETES ASSOC[employer] ATION STATES THAT MICROALBUMINURIA IS PRESENT IF THE MICROALBUMIN/CREATININE RATIO EXCEEDS 30 MCG/MG. THE THRESHOLD FOR CLINICAL ALBUMINURIA IS REACHED AT 300 MCG/MG. THE CLASSIFICATION OF A PATIENT SHOULD BE BASED UPON AT LEAST 2 OF 3 ABNORMAL RESULTS ON SPECIMENS COLLECTED WITHIN A 3 TO 6 MONTH TIME FRAME. Procedures Date Code Description Status 07/22/2021 [id number] Diabetic Foot Exam Completed 03/21/2021 50498 Office/Outpatient Established Mo d MDM 30-39 Min Completed 03/21/2021 93037 Amb Glucose Monitoring Interpret ation And Report Completed Medical Devices Description No Information Available Encounters Type Date Location Provider Dx Diagnosis Office Visit 03/21/2021 2:30p DR. Evelina Rodriguez MD E 10.65 Type 1 diabetes mellitus with hyperglycemia F64.9 Gender identity disorder, un specified E89.0 Postprocedural hypothyroidis m Assessments Date Code Description Provider 07/22/2021 E10.65 Type 1 diabetes mellitus with hy perglycemia Evelina Rodriguez MD 07/22/2021 F64.9 Gender identity disorder, unspec ified Evelina Rodriguez MD 07/22/2021 E89.0 Postprocedural hypothyroidism Cl eric Rodriguez MD 06/21/2021 E10.65 Type 1 diabetes mellitus with hy perglycemia Evelina Rodriguez MD 06/21/2021 F64.9 Gender identity disorder, unspec ified Evelina Rodriguez MD 06/21/2021 E89.0 Postprocedural hypothyroidism Param Rodriguez MD 03/21/2021 E10.65 Type 1 diabetes mellitus with hy perglycemia Evelina Rodriguez MD 03/21/2021 F64.9 Gender identity disorder, unspec ified Evelina Rodriguez MD 03/21/2021 E89.0 Postprocedural hypothyroidism Cl eric Rodriguez MD Plan of Treatment 07/22/2021 - Evelina Rodriguez MD* E10.65 Type 1 diabetes mellitus with hyperglycemia* Comments:* in office a1c =8.5%Random blood sugar =213 - after 10 ma and m to not bottom out.past a1c= 8.3, up slightly 7.7 , down from 8.1, 8.4%, 8.6% 9.3% ,9.4%, 7.9%, 8.5%, 9Pump download and CGM: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 Average blood sugar off the sensor = 161Average carbohydrate = 131Insulin is down to 57 unitsTime in range = 68%No particular pattern. Better blood sugars when he does not eat frequently. 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 * Follow up:* lab++++, pump - 3 months-- * F64.9 Gender identity disorder, unspecified* Comments:* 300 pages of medical records were reviewed from [facility] regarding his transgendered care. Review of records: We received a note from his PCP December. We were unaware that the patient was undergoing sexual reassignment gender transition. He had never mentioned his hormone therapy before. He now identi fies as a female and [facility] in [place]. Labs from [facility] pulled and reviewed:08/2019 :kghap=099 yvmyepggw=259:wahvr=999 bnvswlrou=7406/2019 :unqzv=741 qkcevvqgo=84612/ rnvws=7968 fblsytmdk=547 testo =984 tsijtmjxx=206Mg remains her relationship with a female. He [...] before the patient undergoes irreversible surgical intervention. 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 FT4= 0.63 Became hypot hyroid:06/20/2020: TSH= 13 FT4=0.3normal labs urrent:medication:Levothyroxine 137 ug daily Functional Status Description No Information Available Mental Status Description No Information Available Referrals Refer to Reason for Referral Status Appt Date Evelina Rodriguez MD DM 1 Created [facility] [facility], [address] [place] [address] [phone]
--- OUTSIDE RECORDS SUMMARY | 2021-08-28 15:04 | CCD | Continuity of Care Document ---
Author Author Clayton RODRIGUEZ MD Organization Unknown Address [address] [facility] [place] [address] Phone [phone] Care Team Providers Care Cotton Picker Name Role Phone Charisse Saleem MD AUTM [phone] Charisse Cassidy NP AUTM [phone] Celena Mcbride MD AUTM [phone] Problems Active Problems Provider Date Type 2 [...] Onset : 06/12/2015 Insulin pump present Evelina oRdriguez MD Onset: 06/12/2015 Long-term current use of [...] 100units E10.65 Cely Higgins NP 08/24/2013 Insulin [id number]. Quick Set Paradigm Misc uad with insulin [...] Hemoglobin A1c 10.2 Laboratory test finding 06/03/2021 [facility] l Centr [address] [place] [address] (596)- - Testosterone 20 ng/dL Low 241-827 1 Estradiol Sensitive LC/MS 139.5 pg/mL High 8.0-35.0 2 Lipid Panel 06/03/2021 [facility] ntr [address] [place] [address] (315)- - Triglycerides Level 64 mg/dL Normal <150 Cholesterol Level 150 mg/dL Normal <200 HDL Cholesterol 66 mg/dL Normal >40 LDL Cholesterol 71 mg/dL Normal <100 Non-HDL-C 84 mg/dL Normal Cholesterol Risk Ratio 2.272 Normal <5 Complete Blood Count 06/03/2021 [facility] entr [address] [place] [address] (160)- - White Blood Count 6.3 10 Normal [...] Normal 0-0 Urine Micro/Creat Ratio Random 06/03/2021 [facility] [address] [place] [address] (315)- - Creatinine, Urine 49.8 mg/dL Normal [...] developed and its performance characteristics determined by [facility]. It has not been cleared by the Food and Drug Administration. Methodology: Liquid chromatography tandem mass spectrometry(LC/MS/MS) Performed at: [address] [id number] Hook And Eye Machine Operator: Marlys Jin MD, Phone: [phone] THE [place] DIABETES ASSOC[employer] ATION STATES THAT MICROALBUMINURIA IS PRESENT IF THE MICROALBUMIN/CREATININE RATIO EXCEEDS 30 MCG/MG. THE THRESHOLD FOR CLINICAL ALBUMINURIA IS REACHED AT 300 MCG/MG. THE CLASSIFICATION OF A PATIENT SHOULD BE BASED UPON AT LEAST 2 OF 3 ABNORMAL RESULTS ON SPECIMENS COLLECTED WITHIN A 3 TO 6 MONTH TIME FRAME. Procedures Date Code Description Status 07/22/2021 [id number] Diabetic Foot Exam Completed 03/21/2021 91669 Office/Outpatient Established Mo d MDM 30-39 Min Completed 03/21/2021 77763 Amb Glucose Monitoring Interpret ation And Report [...] pages of medical records were reviewed from [facility] regarding his transgendered care. Review of records: We received a note from his PCP December. We were unaware that the patient was undergoing sexual reassignment gender transition. He had never mentioned his hormone therapy before. He now identi fies as a female and [facility] [place]. Labs from [facility] pulled and reviewed:08/2019 :keego=596 ujslmokvc=502/2019:zcgty=756 lyrorrtuh=5066/2019 :yzrfb=826 rtewnbyra=19139/ nhmqh=6040 bziggepve=639/04/2020 testo =984 mnfeebgmu=981Rj remains her relationship with a female. He [...] 19, 2021.According to WPATH:The Standards of CareVERSION 7[place] Professional Association for Transgender HealthCriteria for for [...] Date Evelina Rodriguez MD DM 1 Created [address] [facility], [address] [place] [address] [phone]
--- OUTSIDE RECORDS SUMMARY | 2021-08-28 15:05 | CCD ---
Author Organization Unknown Address [address] [place] [address] Phone [phone] Care Team Providers Care Rope Walker Name Role Phone KIMBERLY RODRIGUEZ MD 119 [phone] LALO VELAZQUEZ 114 [phone] [facility] UROLOGIST 115 [phone] Allergies Code Code System Name Reaction Severity Status Onset Penicillin Active 3 Notes: PCN - Reaction: unknown Some allergies listed in Document: #[id number] could not be added to this patient's chart. Please review this document and add these allergies to the patient's chart manually as needed. Medications Name Status Start Date Stop Date Admelog U-100 Insulin lispro 100 unit/mL subcutaneous solution USE DIRECTED WITH PUMP MAXIMUM DAILY DOSE 80 UNITS Active Not available albuterol sulfate HFA 90 mcg/actuation a erosol inhaler INHALE 2 PUFFS BY MOUTH EVERY 4 HOURS, as needed Active Not available ammonium lactate 12 % topical cream APPLY TO FEET DAILY Completed 06/07/2021 aspirin 81 mg tablet,delayed release TAKE ONE TABLET BY MOUTH ONCE DAILY Active Not available azithromycin 250 mg tablet TAKE TWO TABLETS BY MOUTH ONCE DAILY FOR 1 DAY THEN TAKE ONE TABLET BY MOUTH ONCE DAILY FOR 4 DAYS Completed 06/07/2021 Bevespi Aerosphere 9 mcg-4.8 mcg HFA aer osol inhaler Inhale 2 puffs twice a day by inhalation route for 30 days. Unknown Not available cholecalciferol (vitamin D3) 50 mcg (2,0 00 unit) capsule TAKE ONE CAPSULE BY MOUTH ONCE DAILY Active No t available clarithromycin 500 mg tablet TAKE ONE TABLET BY MOUTH EVERY 12 HOURS FOR 10 DAYS Completed 01/21/2021 docusate sodium 100 mg capsule TAKE ONE CAPSULE BY MOUTH TWICE A DAY FOR 10 DAYS Completed 03/05/2021 doxycycline hyclate 100 mg capsule TAKE ONE CAPSULE BY MOUTH TWICE A DAY FOR 10 DAYS Completed 12/12/2020 estradiol 2 mg tablet TAKE ONE HALF TABLET BY MOUTH TWO TIMES A DAY Active Not available finasteride 5 mg tablet Completed 12/13/19 fluticasone 113 mcg-salmeterol 14 mcg/ac tuation breath activated powdr INHALE 1 PUFF BY MOUTH TWO TIMES A DAY Active Not available Levaquin 750 mg tablet Take 1 tablet every day by oral route for 7 days. Active Not available Levo-T 25 mcg tablet Take 1 tablet every day by oral route. Completed 12/12/2020 levothyroxine 137 mcg tablet TAKE ONE TABLET BY MOUTH EVERY MORNING ON AN EMPTY STOMACH Active Not available liothyronine 25 mcg tablet Completed 12/12 lisinopril 2.5 mg tablet TAKE ONE TABLET BY MOUTH ONCE DAILY Completed Lupron Depot 3.75 mg intramuscular syrin ge kit INJECT 3.75MG MONTHLY Completed 06/07/2021 metoprolol tartrate 25 mg tablet TAKE ONE TABLET BY MOUTH ONCE DAILY Completed omeprazole 40 mg capsule,delayed release TAKE ONE CAPSULE BY MOUTH ONCE DAILY Active No t available OneTouch Ultra Blue Test Strip USE DIRECTED FOUR TIMES A DAY Completed 2020 prednisone 10 mg tablet Take four tablets for 3 days then take three tablets for 3 days then take two tablets for 3 days then take one tablet for 3 days then stop Active 07/07/2021 Not available prednisone 20 mg tablet TAKE ONE TABLET BY MOUTH TWO TIMES A DAY FOR 4 DAYS Completed 12/12/2020 progesterone micronized 100 mg capsule Completed 01/21/2021 simvastatin 40 mg tablet TAKE ONE TABLET BY MOUTH ONCE DAILY Active Not available Stiolto Respimat 2.5 mcg-2.5 mcg/actuati on solution for inhalation INHALE TWO PUFFS BY MOUTH EVERY DAY Completed 07/08/2021 tramadol 50 mg tablet TAKE ONE TABLET BY MOUTH EVERY 6 HOURS NEEDED FOR UP TO 2 DAYS MAXIMUM DAILY DOSE FOUR TABLETS Completed 03/05/2021 Problems Name Status Onset Date Source Hyperlipidemia Active 10/10/2013 Clinical Finding Unknown 04/10/2014 History Asthma Active 05/28/2016 Gastroesophageal Reflux Disease Active 05/28/2016 Finding of Esophagus Unknown 05/28/2016 History 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 Vitamin D Deficiency Active 09/30/2016 Coronary Atherosclerosis Active 12/02/2016 Coronary Arteriosclerosis Unknown 12/02/2016 Histor y Overweight Active 07/08/2017 Body Mass Index 25-29 - Overweight Active 07/08/2017 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 09/21/2017 History Gender Identity Disorder Active 01/12/2019 Impotence Unknown 07/14/2019 History Screening for Malignant Neoplasm of Prostate Active Essential Hypertension Active 01/21/2021 Gender Dysphoria Active 02/19/2021 External History of Orchiectomy Active 03/05/2021 History of SARS-CoV-2 Active 07/08/[address] Segment Elevation Myocardial Infarction Unknown History Type 1 Diabetes Mellitus without Complication Active Clinical Finding Unknown History Procedures Date Name Performed by Vasectomy Information not avai lable Thyroidectomy Information not avai lable 12/12/2020 XR, Chest, 2 View [facility] nter Radiology [address] [place] [address] (Work Place) 02/12/2021 Electrocardiogram [facility] [address] [place] [phone] (Work Place) 06/07/2021 DEXA, Axial Skeleton + Vertebral Fractur e Assessment [facility] [address] [place] [address] (Work Place) Notes: vasectomy, pre-cancerous moles re moved-groin and back, heart catherization, (L) arm surgery from accident Results Lab Results Date Name Specimen Result Interpretation Description Value Range Status Address 02/14/2021 SARS CoV 2 RNA, QL, Nasopharynx [id number] No observation recorded. [facility]: [address] [facility] 02/04/2021 Lipid Panel, Blood Normal Triglycerides Lev el 92 mg/dL <150 mg/dL [facility]: [address] 0 [facility] Normal Cholesterol Level 127 mg/dL <200 mg/ dL [facility]: [address] [facility] Normal HDL Cholesterol 65 mg/dL >40 mg/dL [facility]: [address] [facility] Normal LDL Cholesterol 44 mg/dL <100 mg/dL [facility]: [address] [facility] Normal Non-hdl-c 62 mg/dL Final [facility]: [address] [place] [address] Normal Cholesterol Risk Ratio 1.953 <5 [facility]: [address] [place] [address] 02/04/2021 TSH, Serum or Plasma Normal Thyroid Stimulating Hormone 2.670 uIU/mL 0.358-3.740 uIU/mL [facility] nter: [address] [place] [address] 02/04/2021 Vitamin D, 25-Hydroxy, Total, Serum Low Total 25(Oh) Vitamin D 11.2 NG/mL 30.0-100.0 NG/mL [facility] nter: [address] [place] [address] 02/04/2021 HbA1C (Hemoglobin a1C), Blood Normal Hemogl obin a1C 8.3 % [facility]: [address] [place] [address] High Estimated Average Glucose 192 mg/dL 60-110 mg/dL [facility]: [address] [place] [address] 12/12/2020 CBC W/ Auto Diff Normal White Blood Count 6.3 10 4.0-10.0 10 [facility]: [address] [place] [address] Normal Red Blood Count 4.57 10 4.30-6.10 10 [facility]: [address] [place] [address] Normal Hemoglobin 14.1 g/dL 13.5-17.5 g/dL [facility]: [address] [place] [address] Normal Hematocrit 42.7 % 42.0-52.0 % [facility]: [address] [place] [address] Normal Mean Corpuscular Volume 93.4 fL 80.0 -96.0 fL [facility]: [address] [place] [address] Normal Mean Corpuscular Hemoglobin 30.9 pg 27.0-33.0 pg [facility]: [address] [place] [address] Normal Mean Corpuscular HGB Conc 33.0 g/dL 32.0-36.5 g/dL [facility]: [address] [place] [address] Normal Red Cell Distribution Width 13.3 % 1 1.5-14.5 % [facility]: [address] [place] [address] Normal Platelet Count, Automated 231 10 150 -450 10 [facility]: [address] [facility] Normal Neutrophils % 44.7 % 36.0-66.0 % [facility]: [address] [facility] Normal Lymph % 33.7 % 24.0-44.0 % [facility]: [address] [facility] High [place] % 9.7 % 2.0-8.0 % Final [facility]: [address] [facility] High Eos % 8.7 % 0.0-3.0 % [facility]: [address] [facility] High Baso % 2.1 % 0.0-1.0 % [facility]: [address] [facility] Normal Immature Granulocyte % 1.1 % 0-3.0 % [facility]: [address] [facility] Normal Nucleated Red Blood Cell % 0.0 % 0- 0 % [facility]: [address] [facility] Normal Neutrophils # 2.8 10 1.5-8.5 10 [facility]: [address] [facility] Normal Lymph # 2.1 10 1.5-5.0 10 [facility]: [address] [facility] Normal [place] # 0.6 10 0.0-0.8 10 [facility]: [address] [facility] High Eos # 0.6 10 0.0-0.5 10 [facility]: [address] [facility] Normal Baso # 0.1 10 0.0-0.2 10 [facility]: [address] [facility] 12/12/2020 CMP, Serum or Plasma High Glucose, Fastin g 181 mg/dL 70-100 mg/dL [facility]: [address] 0 [facility] Normal Blood Urea Nitrogen 12 mg/dL 7-18 mg /dL [facility]: [address] [facility] Normal Creatinine for GFR 0.78 mg/dL 0.70-1 .30 mg/dL [facility]: [address] [place] [address] Normal Glomerular Filtration Rate > 60.0 >5 6 [facility]: [address] [facility] Normal Sodium Level 137 mEq/L 136-145 mEq/L [facility]: [address] [place] [address] Normal Potassium Serum 4.4 mEq/L 3.5-5.1 mE q/L [facility]: 0 [facility] Normal Chloride Level 102 mEq/L 98-107 mEq/ L [facility]: [address] [place] [address] Normal Carbon Dioxide Level 28 mEq/L 21-32 mEq/L [facility]: [address] [place] [address] Low Anion Gap 7 mEq/L 8-16 mEq/L [facility]: [address] [place] [address] Normal Calcium Level 9.0 mg/dL 8.5-10.1 mg/ dL [facility]: 0 [facility] Normal AST/SGOT 15 U/L 7-37 U/L [facility]: 0 [facility] Normal ALT/SGPT 31 U/L 12-78 U/L [facility]: [address] [place] [address] Normal Alkaline Phosphatase 84 U/L 45-117 U /L [facility]: [address] [place] [address] Normal Bilirubin,total 0.3 mg/dL 0.2-1.0 mg /dL [facility]: 0 [facility] Normal Total Protein 6.6 gm/dL 6.4-8.2 gm/d L [facility]: 0 [facility] Normal Albumin 3.7 gm/dL 3.2-5.2 gm/dL [facility]: [address] [place] [address] Normal Albumin/globulin Ratio 1.3 [facility]: [address] [place] [address] 12/12/2020 Pro BNP (Pro B-type Natriuretic Peptide), Serum or Plasma Normal Nt-pro BNP 25 pg/mL <125 pg/mL [facility] Center: [address] [place], [place] [id number] Past Encounters 07/12/2021 History of SARS-CoV-2; Asthma; Essential Hypertension; Long-term Drug Therapy Celena Mcbride MD: [address] [place] [phone], Ph. 06/07/2021 Essential Hypertension; Hyperlipidemia; Asthma; Coronary Atherosclerosis; Immunization Advised; Vitamin D Deficiency; Overweight Celena Mcbride MD: [address] [place] [phone], Ph. 03/05/2021 Essential Hypertension; Hyperlipidemia; Type 1 Diabetes Mellitus without Complication; Vitamin D Deficiency; Immunization Advised; Simple Chronic Bronchitis Celena Mcbride MD: [address] [place] [phone], Ph. 02/12/2021 Asthma; Pre-surgery Evaluation; Body Mass Index 30+ - Obesity Celena Mcbride MD: [address] [place] [phone], Ph. 01/21/2021 Hyperlipidemia; Hypopituitarism; Vitamin D Deficiency; Type 1 Diabetes Mellitus without Complication; Gender Identity Disorder; Gastroesophageal Reflux Disease; Essential Hypertension; Asthma Celena Mcbride MD: [address] [place] [phone], Ph. 12/19/2020 Chronic Bronchitis; Body Mass Index 30+ - Obesity Celena Mcbride MD: [address] [place] [phone], Ph. 12/12/2020 Gender Identity Disorder; Coronary Atherosclerosis; Type 1 Diabetes Mellitus without Complication; Body Mass Index 30+ - Obesity; Wheezing Celena Mcbride MD: [address] [place] [phone], Ph. 07/11/2020 Type 1 Diabetes Mellitus; Hypertensive Disorder; Gender Dysphoria; Hypothyroidism SUSANNE Malin-BC: [address] [place] [phone], Ph. Social History Tobacco Smoking Status Former Smoker Vaccine List Vaccine Type Tdap 11/26/2017 Plan of Care Patient Instructions Continue to follow up with Dr. Rodriguez for your diabetes and thyroid issues as well as your hormone replacement therapy. Return to the clinic in 6 months. Reminders Provider Appointments None recorded. Lab None recorded. Referral None recorded. Procedures None recorded. Surgeries None recorded. Imaging None recorded. Vitals 06/07/2021 08:20AM ESTABLISHED [id number] Height Weight BMI Blood Pressure 72 in 221 lbs 2 oz 30 kg/m2 109/69 mm[Hg] 03/05/2021 09:00AM ANNUAL EXAM Height Weight BMI Blood Pressure 72 in 222 lbs 4 oz 30.1 kg/m2 128/78 mm[Hg] 02/12/2021 05:00PM PROVIDER REQUESTED Height Weight BMI Blood Pressure 72 in 224 lbs 6.4 oz 30.4 kg/m2 101/66 mm[Hg ] 01/21/2021 10:20AM ESTABLISHED [id number] Height Weight BMI Blood Pressure 72 in 227 lbs 4 oz 30.8 kg/m2 112/72 mm[Hg] 12/19/2020 05:00PM PROVIDER REQUESTED Height Weight BMI Blood Pressure 72 in 225 lbs 6.4 oz 30.6 kg/m2 132/80 mm[Hg ] 12/12/2020 04:00PM ESTABLISHED [id number] Height Weight BMI Blood Pressure 72 in 224 lbs 9.6 oz 30.5 kg/m2 100/68 mm[Hg ] 07/11/2020 10:20AM ESTABLISHED [id number] Height Weight BMI Blood Pressure 72 in 208 lbs 4 oz 28.2 kg/m2 132/80 mm[Hg] 01/18/2020 Height Weight BMI Blood Pressure 72 in 197 lbs 26.81 kg/m2 127/67 mm[Hg] 07/14/2019 Height Weight BMI Blood Pressure 72 in 202 lbs 27.50 kg/m2 111/70 mm[Hg] 01/12/2019 Height Weight BMI Blood Pressure 72 in 206 lbs 6.08 oz 28.09 kg/m2 135/80 mm[H g]
--- OUTSIDE RECORDS SUMMARY | 2021-08-28 15:05 | CCD ---
Author Organization Unknown Address [address] [place] [address] Phone [phone] Care Team Providers Care Data Consultant Name Role Phone KIMBERLY RODRIGUEZ MD 119 [phone] LALO VELAZQUEZ 114 [phone] [facility] UROLOGIST 115 [phone] Allergies Code Code System Name Reaction Severity Status Onset Penicillin Active 12/31/2012 Notes: PCN - Reaction: unknown Some allergies listed in Document: #[id number] could not be added to this patient's [...] INHALE 2 PUFFS BY MOUTH EVERY 4 HOURS Active N ot available ammonium lactate 12 % topical cream APPLY TO FEET DAILY Completed 06/07/2021 aspirin 81 mg tablet,delayed release TAKE ONE TABLET BY MOUTH ONCE A DAY DIRECTED Active Not available azithromycin 250 mg tablet TAKE TWO TABLETS BY MOUTH ONCE DAILY FOR 1 DAY THEN TAKE ONE TABLET BY MOUTH ONCE DAILY FOR 4 DAYS Completed 06/07/2021 Bevespi Aerosphere 9 mcg-4.8 mcg HFA aer osol inhaler Inhale 2 puffs twice a day by inhalation route for 30 days. Unknown Not available clarithromycin 500 mg tablet TAKE ONE [...] available finasteride 5 mg tablet Completed 12/13/19 21 fluticasone 113 mcg-salmeterol 14 mcg/ac tuation breath activated powdr INHALE 1 PUFF BY MOUTH TWO TIMES A DAY Active Not available Levo-T 25 mcg tablet Take 1 tablet every day by oral route. Completed 12/12/2020 levothyroxine 137 mcg tablet TAKE ONE TABLET BY MOUTH EVERY MORNING ON AN EMPTY STOMACH Active Not available liothyronine 25 mcg tablet Completed 12/12 lisinopril 2.5 mg tablet TAKE ONE TABLET BY MOUTH ONCE DAILY Active Not available Lupron Depot 3.75 mg intramuscular syrin ge kit INJECT 3.75MG MONTHLY Completed 06/07/2021 metoprolol tartrate 25 mg tablet TAKE ONE TABLET BY MOUTH ONCE DAILY Completed omeprazole 40 mg capsule,delayed release TAKE ONE CAPSULE BY MOUTH ONCE DAILY Active No t available OneTouch Ultra Blue Test Strip USE DIRECTED FOUR TIMES A DAY Completed 2020 prednisone 20 mg tablet TAKE ONE TABLET BY MOUTH TWO TIMES A DAY FOR 4 DAYS Completed 12/12/2020 progesterone micronized 100 mg capsule Completed 01/21/2021 simvastatin 40 mg tablet TAKE ONE TABLET BY MOUTH ONCE DAILY Active Not available Stiolto Respimat 2.5 mcg-2.5 mcg/actuati on solution for inhalation INHALE TWO PUFFS BY MOUTH EVERY DAY Completed tramadol 50 mg tablet TAKE ONE TABLET BY MOUTH EVERY 6 HOURS NEEDED FOR UP TO 2 DAYS MAXIMUM DAILY DOSE FOUR TABLETS Completed 03/05/2021 Vitamin D3 50 mcg (2,000 unit) capsule Take 1 capsule every day by oral route. 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 09/21/2017 History Gender Identity Disorder Active 01/12/2019 History Impotence Unknown 07/14/2019 History Screening for Malignant Neoplasm of Prostate Active History Essential Hypertension Active 01/21/2021 History of Orchiectomy Active 03/05/[address] Segment Elevation Myocardial Infarction Unknown History Type 1 Diabetes Mellitus without Complication Active History Clinical Finding Unknown History Procedures Date Name Performed by Vasectomy Information not avai lable Thyroidectomy Information not avai lable 12/12/2020 XR, Chest, 2 View [facility] nter Radiology [address] [place] [address] (Work Place) 02/12/2021 Electrocardiogram Main [facility] [address] [place] [phone] (Work Place) 06/07/2021 DEXA, Axial Skeleton + Vertebral Fractur e Assessment [facility] Radiology [address] [place] [address] (Work Place) Notes: vasectomy, pre-cancerous moles re moved-groin and back, heart catherization, (L) arm surgery from accident Results Lab Results Date Name Specimen Result Interpretation Description Value Range Status Address 02/14/2021 SARS CoV 2 RNA, QL, Nasopharynx NASOPHARYNX No observation recorded. [facility]: [address] [facility] 02/04/2021 Lipid Panel, Blood Normal Triglycerides Lev el 92 mg/dL <150 mg/dL Final [facility]: [address] [facility] Normal Cholesterol Level 127 mg/dL <200 mg/ dL [facility]: [address] [facility] Normal HDL Cholesterol 65 mg/dL >40 mg/dL F inal [facility]: [address] [facility] Normal LDL Cholesterol 44 mg/dL <100 mg/dL [facility]: [address] [facility] Normal Non-hdl-c 62 mg/dL Final [facility]: [address] [facility] Normal Cholesterol Risk Ratio 1.953 <5 [facility]: [address] [facility] 02/04/2021 TSH, Serum or Plasma Normal Thyroid Stimulating Hormone 2.670 uIU/mL 0.358-3.740 uIU/mL [facility] nter: [address] [facility] 02/04/2021 Vitamin D, 25-Hydroxy, Total, Serum Low Total 25(Oh) Vitamin D 11.2 NG/mL 30.0-100.0 NG/mL [facility] nter: 0 [facility] 02/04/2021 HbA1C (Hemoglobin a1C), Blood Normal Hemogl obin a1C 8.3 % [facility]: [address] [place] [address] High Estimated Average Glucose 192 mg/dL 60-110 mg/dL [facility]: [address] [place] [address] 12/12/2020 CBC W/ Auto Diff Normal White Blood Count 6.3 10 4.0-10.0 10 [facility]: [address] [place] [address] Normal Red Blood Count 4.57 10 4.30-6.10 10 [facility]: 0 [facility] Normal Hemoglobin 14.1 g/dL 13.5-17.5 g/dL [facility]: [address] [place] [address] Normal Hematocrit 42.7 % 42.0-52.0 % [facility]: [address] [place] [address] Normal Mean Corpuscular Volume 93.4 fL 80.0 -96.0 fL [facility]: [address] [place] [address] Normal Mean Corpuscular Hemoglobin 30.9 pg 27.0-33.0 pg [facility]: [address] [place] [address] Normal Mean Corpuscular HGB Conc 33.0 g/dL 32.0-36.5 g/dL [facility]: [address] [place] [address] Normal Red Cell Distribution Width 13.3 % 1 1.5-14.5 % [facility]: 0 [facility] Normal Platelet Count, Automated 231 10 150 -450 10 [facility]: 0 [facility] Normal Neutrophils % 44.7 % 36.0-66.0 % [facility]: [address] [facility] Normal Lymph % 33.7 % 24.0-44.0 % [facility]: 0 [facility] High Chippewa % 9.7 % 2.0-8.0 % [facility]: [address] [facility] High Eos % 8.7 % 0.0-3.0 % [facility]: [address] [facility] High Baso % 2.1 % 0.0-1.0 % [facility]: [address] [facility] Normal Immature Granulocyte % 1.1 % 0-3.0 % [facility]: [address] [facility] Normal Nucleated Red Blood Cell % 0.0 % 0- 0 % [facility]: [address] [facility] Normal Neutrophils # 2.8 10 1.5-8.5 10 [facility]: 0 [facility] Normal Lymph # 2.1 10 1.5-5.0 10 [facility]: [address] [facility] Normal [place]pewa # 0.6 10 0.0-0.8 10 [facility]: [address] [facility] High Eos # 0.6 10 0.0-0.5 10 [facility]: [address] [facility] Normal Baso # 0.1 10 0.0-0.2 10 [facility]: 0 [facility] 12/12/2020 CMP, Serum or Plasma High Glucose, Fastin g 181 mg/dL 70-100 mg/dL [facility]: [address] [facility] Normal Blood Urea Nitrogen 12 mg/dL 7-18 mg /dL [facility]: 0 [facility] Normal Creatinine for GFR 0.78 mg/dL 0.70-1 .30 mg/dL [facility]: 0 [facility] Normal Glomerular Filtration Rate > 60.0 >5 6 [facility]: [address] [facility] Normal Sodium Level 137 mEq/L 136-145 mEq/L [facility]: 0 [facility] Normal Potassium Serum 4.4 mEq/L 3.5-5.1 mE q/L [facility]: [address] [facility] Normal Chloride Level 102 mEq/L 98-107 mEq/ L [facility]: [address] [facility] Normal Carbon Dioxide Level 28 mEq/L 21-32 mEq/L [facility]: 0 [facility] Low Anion Gap 7 mEq/L 8-16 mEq/L [facility]: [address] [facility] Normal Calcium Level 9.0 mg/dL 8.5-10.1 mg/ dL [facility]: [address] [facility] Normal AST/SGOT 15 U/L 7-37 U/L [facility]: [address] [facility] Normal ALT/SGPT 31 U/L 12-78 U/L [facility]: [address] [facility] Normal Alkaline Phosphatase 84 U/L 45-117 U /L [facility]: [address] [place] [address] Normal Bilirubin,total 0.3 mg/dL 0.2-1.0 mg /dL [facility]: [address] [facility] Normal Total Protein 6.6 gm/dL 6.4-8.2 gm/d L [facility]: 0 [facility] Normal Albumin 3.7 gm/dL 3.2-5.2 gm/dL [facility]: [address] [place] [address] Normal Albumin/globulin Ratio 1.3 [facility]: [address] [place] [address] 12/12/2020 Pro BNP (Pro B-type Natriuretic Peptide), Serum or Plasma Normal Nt-pro BNP 25 pg/mL <125 pg/mL [facility]: [address] [facility] Past Encounters 06/07/2021 Essential Hypertension; Hyperlipidemia; Asthma; Coronary Atherosclerosis; Immunization Advised; Vitamin D Deficiency; Overweight Celena Mcbride MD: [address] [place] [address], Ph. 03/05/2021 Essential Hypertension; Hyperlipidemia; Type 1 Diabetes Mellitus without Complication; Vitamin D Deficiency; Immunization Advised; Simple Chronic Bronchitis Celena Mcbride MD: [address] [place] [phone], Ph. 02/12/2021 Asthma; Pre-surgery Evaluation; Body Mass Index 30+ - Obesity Celena Mcbride MD: [address] [place] [phone], Ph. 01/21/2021 Hyperlipidemia; Hypopituitarism; Vitamin D Deficiency; Type 1 Diabetes Mellitus without Complication; Gender Identity Disorder; Gastroesophageal Reflux Disease; Essential Hypertension; Asthma Celena Mcbride MD: [address] [place] [phone], Ph. 12/19/2020 Chronic Bronchitis; Body Mass Index 30+ - Obesity Celena Mcbride MD: [address] [place] [phone], Ph. 12/12/2020 Gender Identity Disorder; Coronary Atherosclerosis; Type 1 Diabetes Mellitus without Complication; Body Mass Index 30+ - Obesity; Wheezing Celena Mcbride MD: [address] [place] [phone], Ph. 07/11/2020 Type 1 Diabetes Mellitus; Hypertensive Disorder; Gender Dysphoria; Hypothyroidism SUSANNE Malin-BC: [address] [place] [phone], Ph. Social History Tobacco Smoking Status Former [...] Imaging None recorded. Vitals 06/07/2021 08:20AM ESTABLISHED [id number] Height Weight BMI Blood Pressure 72 in 221 lbs 2 oz 30 kg/m2 109/69 mm[Hg] 03/05/2021 09:00AM ANNUAL EXAM Height Weight BMI Blood Pressure 72 in 222 lbs 4 oz 30.1 kg/m2 128/78 mm[Hg] 02/12/2021 05:00PM PROVIDER REQUESTED Height Weight BMI Blood Pressure 72 in 224 lbs 6.4 oz 30.4 kg/m2 101/66 mm[Hg ] 01/21/2021 10:20AM ESTABLISHED [id number] Height Weight BMI Blood Pressure 72 in 227 lbs 4 oz 30.8 kg/m2 112/72 mm[Hg] 12/19/2020 05:00PM PROVIDER REQUESTED Height Weight BMI Blood Pressure 72 in 225 lbs 6.4 oz 30.6 kg/m2 132/80 mm[Hg ] 12/12/2020 04:00PM ESTABLISHED [id number] Height Weight BMI Blood Pressure 72 in 224 lbs 9.6 oz 30.5 kg/m2 100/68 mm[Hg ] 07/11/2020 10:20AM ESTABLISHED [id number] Height Weight BMI Blood Pressure 72 in [...]
--- OUTSIDE RECORDS SUMMARY | 2021-08-28 15:05 | CCD | Continuity of Care Document ---
Author Author [place] RODRIGUEZ MD Organization Unknown Address [address] [facility] [place] [address] Phone [phone] Care Team Providers Care Materials Planning Analyst Name Role Phone Charisse Saleem MD AUTM [phone] Charisse Cassidy NP AUTM [phone] Celena Mcbride MD AUTM [phone] Problems Active Problems Provider Date Type 2 [...] smoker Allergies, Adverse Reactions, Alerts Active Allergies Criticality Reaction | Severity Comments Date Penicillin Unable to assess criticality 02/23/2013 Medications Active Medications SIG Qnty Indications Ordering Provide r Date Lupron Depot (1-Month) 3.75mg Kit Inject 3.75MG Monthly 1units F64.9 Evelina Rodriguez MD 06/20/2020 Levothyroxine [...] Day 100units E10.65 Evelina Rodriguez MD Insulin [id number]. Quick Set Paradigm Misc uad with insulin pump-changing Q3Day dia.03/251.2 30units Evelina Rodriguez MD 05/19/2013 Insulin Pump Paradigm [id number] 3.0ML Resevior uad, wit h Insulin Pump, Changing resevoir Q3Days 30units Evelina Rodriguez MD 05/19/2013 Aspirin 81mg Tablets 1/2 tab in the morning and 1/2 tab at night. 30tabs Daphnie Juarez 02/23/2013 Simvastatin 40mg Tablets 1 tab by mouth once daily. 30tabs Evelina Rodriguez MD Metoprolol Tartrate 25mg Tablets 1/2 tab by mouth once daily. 60tabs Unknown Lisinopril 2.5mg Tablets 1 tab by mouth once daily. 90tabs Unknown Estradiol 2mg Tablets 1 by mouth every day Unknown Immunizations Description No Information Available Vital Signs Date Vital Result Comment 03/21/2021 2:31pm BP Systolic 115 mmHg BP Diastolic 75 mmHg Heart Rate 69 /min Body Temperature 97.7 F Height 70 inches 5'10" Weight 220.00 lb BMI (Body Mass Index) 31.6 kg/m2 O2 % BldC Oximetry 92 % 12/14/2020 11:47am BP Systolic 112 mmHg BP Diastolic 68 mmHg Heart Rate 72 /min Body Temperature 97.3 F Height 70 inches 5'10" Weight 222.25 lb BMI (Body Mass Index) 31.9 kg/m2 O2 % BldC Oximetry 93 % Results Test Acquired Date Facility Test Result H/L Range Note Laboratory test finding 06/03/2021 [facility] [address] [place] [address] (867)- - Testosterone 20 ng/dL Low 241-827 1 Estradiol Sensitive LC/MS 139.5 pg/mL High 8.0-35.0 2 Lipid Panel 06/03/2021 [facility] ntr [address] [place] [address] ([phone] - Triglycerides Level 64 mg/dL Normal <150 Cholesterol Level 150 mg/dL Normal <200 HDL Cholesterol 66 mg/dL Normal >40 LDL Cholesterol 71 mg/dL Normal <100 Non-HDL-C 84 mg/dL Normal Cholesterol Risk Ratio 2.272 Normal <5 Complete Blood Count 06/03/2021 [facility] entr [address] [place] [address] (069)- - White Blood Count 6.3 10 Normal [...] Random 06/03/2021 [facility] [address] [place] [address] (315)- - Creatinine, Urine 49.8 mg/dL Normal Malb Urine Siemens < 5.0 mg/L Normal Alberto/Creat Ratio 10.0 MCG/MG Normal 0.0-30.0 3 Laboratory test finding 03/21/2021 In House Glucose 213 Hemoglobin A1c 8.5% Laboratory test finding 12/14/2020 In House Glucose 159 Hemoglobin A1c 8.4 1 NORMAL RANGES ARE FOR ADULT FEMALES (OVER 15 YRS) AND MALES (OVER 19 YRS). FOR PEDIATRIC RANGES PLE ASE CONSULT LITERATURE. 2 This test was developed and its performance characteristics determined by [employer]. It has not been cleared by the Food and Drug Administration. Methodology: Liquid chromatography tandem mass spectrometry(LC/MS/MS) Performed at: [address] [id number] Supervisor: Marlys Jin MD, Phone: [phone] THE [employer] ATION STATES THAT MICROALBUMINURIA IS PRESENT IF THE MICROALBUMIN/CREATININE RATIO EXCEEDS 30 MCG/MG. THE THRESHOLD FOR CLINICAL ALBUMINURIA IS REACHED AT 300 MCG/MG. THE CLASSIFICATION OF A PATIENT SHOULD BE BASED UPON AT LEAST 2 OF 3 ABNORMAL RESULTS ON SPECIMENS COLLECTED WITHIN A 3 TO 6 MONTH TIME FRAME. Procedures Date Code Description Status 03/21/2021 05660 Office/Outpatient Established Mo d MDM 30-39 Min Completed 03/21/2021 67132 Amb Glucose Monitoring Interpret ation And Report Completed 12/14/2020 60479 Office/Outpatient Established Mo d MDM 30-39 Min Completed 12/14/2020 26538 Amb Glucose Monitoring Interpret ation And Report Completed 03/03/2019 [id number] Diabetic Foot Exam Completed Medical Devices Description No Information Available Encounters Type Date Location Provider Dx Diagnosis Office Visit 03/21/2021 2:30p DR. Evelina Rodriguez MD E 10.65 Type 1 diabetes mellitus with hyperglycemia F64.9 Gender identity disorder, un specified E89.0 Postprocedural hypothyroidis m Office Visit 12/14/2020 11:45a DR. Evelina Rodriguez MD E 10.65 Type 1 diabetes mellitus with hyperglycemia F64.9 Gender identity disorder, un specified E89.0 Postprocedural hypothyroidis m Assessments Date Code Description Provider 03/21/2021 E10.65 Type 1 diabetes mellitus with hy perglycemia Evelina Rodriguez MD 03/21/2021 F64.9 Gender identity disorder, unspec ified Evelina Rodriguez MD 03/21/2021 E89.0 Postprocedural hypothyroidism Cl eric Rodrigeuz MD 12/14/2020 E10.65 Type 1 diabetes mellitus with hy perglycemia Evelina Rodriguez MD 12/14/2020 F64.9 Gender identity disorder, unspec ified Eevlina Rodriguez MD 12/14/2020 E89.0 Postprocedural hypothyroidism Cl eric Rodriguez MD Plan of Treatment Future Appointment(s):* 06/21/2021 1:30 pm - Evelina Rodriguez MD at DR. Evelina Rodriguez 03/21/2021 - Evelina Rodriguez MD* E10.65 Type 1 diabetes mellitus with hyperglycemia* New Labs:* Glucose, Ordered: 03/21/21 * Hemoglobin A1c, Ordered: 03/21/21 * Comments:* in office a1c =8.5%Random blood sugar [...] of medical records were reviewed from [facility] regarding his transgendered care. Review of records: We received a note from his PCP December. We were unaware that the patient was undergoing sexual reassignment gender transition. He had never mentioned his hormone therapy before. He now identi fies as a female and has [facility] in [place]. Labs from [facility] pulled and reviewed:08/2019 :aapfn=131 igldmzzwf=966/2019:mfpzj=993 kghbdlucj=5618 :omyak=461 oqtyiszqo=42609/ bvcuk=6656 xbjuxiwme=397/04/2020 testo =984 sjnybviyi=166Jw remains her relationship with a female. He [...] them due to a conflict with the admin secretary.Records demonstrate that he has failed first-line therapy with estrogen and finasteride. Per the endocrine guidelines from 2008 and the update from 2019: Patient's first-line [...] Description No Information Available Referrals Refer to Dr Reason for Referral Status Appt Date Evelina Rodriguez MD DM 1 Created [facility]1 [facility], [address] [address] [phone]
--- OUTSIDE RECORDS SUMMARY | 2021-08-28 15:05 | CCD | Continuity of Care Document ---
Author Author [place] BALLARD N.P. Organization Unknown Address [address] [place] [address] Phone [phone] Care Team Providers Care Oven Dauber Name Role Phone Celena Mcbride M.D. AUTM [phone] AUTM Unavailable AUTM Unavailable Problems Description No Information Available Social History Type Date Description Comments Sex Unknown Tobacco Use Start: Unknown End: Patient is a former smoker Smoking Status Reviewed: 05/29/21 Patient is a former smoker Allergies, Adverse Reactions, Alerts Active Allergies Criticality Reaction | Severity Comments Date Penicillin V Unable to assess criticality 04/03/2021 Medications Active Medications SIG Qnty Indications Ordering Provide r Date Airduo Respiclick 113/ 113-14mcg/Act Aerosol 1 inhalation by mouth twice a day 1units Kaykay Rome MD 04/17/[address] 1 by mouth every day Unknown Omeprazole 20mg Capsules DR 1 by mouth every day Unknown Simvastatin 40mg Tablets Take One Tablet By Mouth Once Daily Unknown Lisinopril 2.5mg Tablets 1 tab by mouth Celena Mcbride M.D. Levothyroxine Sodium 137mcg Tablet s Take One Tablet By Mouth Every Day Unknown Metoprolol Tartrate 25mg Tablets Charisse Cassidy A.N.P. Estradiol 2mg Tablets Take One Half Tablet By Mouth Two Times A Day Unknown 0 000 Admelog 100Unit/ML Solution Evelina Soliz M.D. Albuterol Sulfate HFA 108(90Base) mcg/Act Aerosol inhale two puffs by mouth four times a day as needed Unknown Immunizations Description No Information Available Vital Signs Date Vital Result Comment 05/29/2021 12:37pm BP Systolic 110 mmHg BP Diastolic 60 mmHg Heart Rate 65 /min O2 % BldC Oximetry 97 % Height 71 inches 5'11" Weight 223.00 lb BMI (Body Mass Index) 31.1 kg/m2 [place] Body Weight 172 lb Weight 101.153 kg BSA (Body Surface Area) 2.21 m2 04/17/2021 8:23am BP Systolic 100 mmHg BP Diastolic 70 mmHg Heart Rate 70 /min O2 % BldC Oximetry 95 % Room Air Weight 220.00 lb Weight 99.792 kg Results Test Acquired Date Facility Test Result H/L Range Note FVL/[place] 05/29/2021 [facility] SEE IMAGE FVC-Pred 5.12 L FVC-Pre 3.12 L FVC-%Pred-Pre 60 L FVC-LLN 4.16 L Fev1-Pred 3.93 L Fev1-Pre 2.58 L Fev1-%Pred-Pre 65 L Fev1-LLN 3.12 L Fev6-Pred 4.92 L Fev6-Pre 3.12 L Fev6-%Pred-Pre 63 L Fev6-LLN 3.99 L Ker3nbv-Lkeg 77 % Fjg8eog-Fcu 83 % Wtz2xob-%Pred-Pre 107 % Iqw9uad-ASR 67 % Pkh5cwa-Aqwv 96 % Llo8gwl-Caf 100 % Cjq4vjt-%Pred-Pre 104 % FEFMax-Pred 9.84 L/E/sec FEFMax-Pre 6.45 L/E/sec FEFMax-%Pred-Pre 65 L/E/sec FEFMax-LLN 7.45 L/E/sec Gek6693-Nilt 3.37 L/E/sec Ram3283-Ogq 3.08 L/E/sec Itv2687-%Pred-Pre 91 L/E/sec Dln5384-STU 1.72 L/E/sec ExpTime-Pre 6.24 sec Ubv4qit9-Hoxm 80 % Hgi0iap5-Huf 83 % Kky0ecf6-%Pred-Pre 103 % Tyq2rnw8-KRH 71 % Procedures Date Code Description Status 05/29/2021 11726 Office/Outpatient Established Mo d MDM 30-39 Min Completed 05/29/2021 46242 Spirometry Completed 04/17/2021 09587 Office/Outpatient Established Mo d MDM 30-39 Min Completed 04/17/2021 21556 Inhaler Teaching Completed 04/03/2021 41378 Office/Outpatient New Moderate M DM 45-59 Minutes Completed Medical Devices Description No Information Available Encounters Type Date Location Provider Dx Diagnosis Office Visit 05/29/2021 12:45p [facility] Pulmonary/Thoracic Violet Ballard, N.P. J45.40 Moderate persistent asthma, uncomplicate d Z87.891 Personal history of nicotine dependence R91.8 Other nonspecific abnormal f inding of lung field Office Visit 04/17/2021 8:30a [facility] Pulmonary/Thoracic Kaykay Rome MD J45.40 Moderate persistent asthma, uncomplicate d Z87.891 Personal history of nicotine dependence R91.8 Other nonspecific abnormal f inding of lung field Office Visit 04/03/2021 2:00p [facility] Pulmonary/Thoracic Kaykay Rome MD R06.02 Shortness of breath Z87.891 Personal history of nicotine dependence Assessments Date Code Description Provider 05/29/2021 J45.40 Moderate persistent asthma, unco mplicated Becky Ballard, N.P. 05/29/2021 Z87.891 Personal history of nicotine dep endence Becky Ballard, N.P. 05/29/2021 R91.8 Other nonspecific abnormal findi ng of lung field Becky Ballard, N.P. 04/17/2021 J45.40 Moderate persistent asthma, unco mplicated Rito Rome MD 04/17/2021 Z87.891 Personal history of nicotine dep endence Rito Rome MD 04/17/2021 R91.8 Other nonspecific abnormal findi ng of lung field Rito Rome MD 04/03/2021 R06.02 Shortness of breath Rito barone MD 04/03/2021 Z87.891 Personal history of nicotine dep endence Rito Rome MD Plan of Treatment Future Appointment(s):* 11/26/2021 8:30 am - Rito Rome MD at [facility] Pulmonary/Thoracic 05/29/2021 - Becky Ballard, N.P.* J45.40 Moderate persistent asthma, uncomplicated * Z87.891 Personal history of nicotine dependence * R91.8 Other nonspecific abnormal finding of lung field * * New Labs:* FVL/[place], Ordered: 05/29/21 * Follow up:* 1. Follow up in 6 months time with fvl/spirometry with Dr. Rome. Functional Status Description No Information Available Mental Status Description No Information Available Referrals Refer to Dr Reason for Referral Status Appt Date Radiology/Procedure 22037 Closed 04/10/2021 Rito Rome M.D. CHRONIC BRONCHITIS Scheduled 04/03 [facility] [address] [place], [place] [address] [phone]
--- OUTSIDE RECORDS SUMMARY | 2021-08-28 15:05 | CCD | Continuity of Care Document ---
Author Author Clayton RODRIGUEZ MD Organization Unknown Address [address] [place] [address] Phone [phone] Care Team Providers Care Hammer Operator Name Role Phone Charisse Saleem MD AUTM [phone] Charisse Cassidy NP AUTM [phone] Celena Mcbride MD AUTM [phone] Problems Active Problems Provider Date Type 2 [...] Day 100units E10.65 Evelina Rodriguez MD Insulin [id number]. Quick Set Paradigm Misc uad with insulin [...] H/L Range Note Laboratory test finding 06/03/2021 [facility] [address] [place] [address] (458)- - Testosterone 20 ng/dL Low 241-827 1 Lipid Panel 06/03/2021 [facility] ntr [address] [place] [address] (065)- - Triglycerides Level 64 mg/dL Normal <150 Cholesterol Level 150 mg/dL Normal <200 HDL Cholesterol 66 mg/dL Normal >40 LDL Cholesterol 71 mg/dL Normal <100 Non-HDL-C 84 mg/dL Normal Cholesterol Risk Ratio 2.272 Normal <5 Complete Blood Count 06/03/2021 [facility] entr [address] [place] [address] (069)- - White Blood Count 6.3 10 [...] Normal 0-0 Urine Micro/Creat Ratio Random 06/03/2021 [facility] [address] [place] [address] (366)- - Creatinine, Urine 49.8 mg/dL Normal Malb Urine Siemens < 5.0 mg/L Normal Alberto/Creat Ratio 10.0 MCG/MG Normal 0.0-30.0 2 Laboratory test finding 03/21/2021 In House Glucose 213 Hemoglobin A1c 8.5% Laboratory test finding 12/14/2020 In House Glucose 159 Hemoglobin A1c 8.4 1 NORMAL RANGES ARE FOR ADULT FEMALES (OVER 15 YRS) AND MALES (OVER 19 YRS). FOR PEDIATRIC RANGES PLE ASE CONSULT LITERATURE. 2 THE [employer] AT[employer] STATES THAT MICROALBUMINURIA IS PRESENT IF THE MICROALBUMIN/CREATININE RATIO EXCEEDS 30 MCG/MG. THE THRESHOLD FOR CLINICAL ALBUMINURIA IS REACHED AT 300 MCG/MG. THE CLASSIFICATION OF A PATIENT SHOULD BE BASED UPON AT LEAST 2 OF 3 ABNORMAL RESULTS ON SPECIMENS COLLECTED WITHIN A 3 TO 6 MONTH TIME FRAME. Procedures Date Code Description Status 03/21/2021 40493 Office/Outpatient Established Mo d MDM 30-39 Min Completed 03/21/2021 24877 Amb Glucose Monitoring Interpret ation And Report Completed 12/14/2020 54785 Office/Outpatient Established Mo d MDM 30-39 Min Completed 12/14/2020 61642 Amb Glucose Monitoring Interpret ation And Report Completed 03/03/2019 [id number] Diabetic Foot Exam Completed Medical Devices Description [...] E89.0 Postprocedural hypothyroidism Cl eric Rodriguez MD 12/14/2020 E10.65 Type 1 diabetes mellitus with hy perglycemia Evelina Rodriguez MD 12/14/2020 F64.9 Gender identity disorder, unspec ified Evelina Rodriguez MD 12/14/2020 E89.0 Postprocedural hypothyroidism Cl [...] pages of medical records [facility] care. Review of records: We received a note from his PCP December. We were unaware that the patient was undergoing sexual reassignment gender transition. He had never mentioned his hormone therapy before. He now identi firosalina as a female and has been seen in [facility] in [place]. Labs from [facility] pulled and reviewed:08/2019 :cvtem=652 jqzwuxddn=992:upbcq=743 itxabzmgf=0519 :bbfxu=370 cartkidnh=05668/ hjrxy=5642 pitgjbxbq=198/04/2020 testo =984 uizknepxl=253Sv remains her relationship with a female. He [...] them due to a conflict with the medical office secretary.Records demonstrate that he has failed first-line [...] Status Appt Date Evelina Rodriguez MD DM /00/0000 [address], [address] [place] [address] [phone]
--- OUTSIDE RECORDS SUMMARY | 2021-08-28 15:05 | CCD | Continuity of Care Document ---
Author Author Clayton ROME MD Organization Unknown Address [address] [place] [address] Phone [phone] Care Team Providers Care Motorcyles Final Inspector Name Role Phone Celena Mcbride M.D. AUTM [phone] AUTM Unavailable AUTM Unavailable Problems Description No Information Available Social History Type Date Description Comments Sex Unknown Tobacco Use Start: Unknown End: Patient is a former smoker Smoking Status Reviewed: 05/29/21 Patient is a former smoker Allergies and [...] By Mouth Two Times A Day Unknown 000 Admelog 100Unit/ML Solution Evelina Soliz M.D. [...] lb BMI (Body Mass Index) 31.1 kg/m2 [place] Body Weight 172 lb Weight 101.153 kg BSA (Body Surface Area) 2.21 m2 04/17/2021 8:23am BP Systolic 100 mmHg BP Diastolic 70 mmHg Heart Rate 70 /min O2 % BldC Oximetry 95 % Room Air Weight 220.00 lb Weight 99.792 kg Results Test Acquired Date Facility Test Result H/L Range Note FVL/Harlan 05/29/2021 [facility] SEE IMAGE FVC-Pred 5.12 L FVC-Pre 3.12 L FVC-%Pred-Pre 60 L FVC-LLN 4.16 L Fev1-Pred 3.93 L Fev1-Pre 2.58 L Fev1-%Pred-Pre 65 L Fev1-LLN 3.12 L Fev6-Pred 4.92 L Fev6-Pre 3.12 L Fev6-%Pred-Pre 63 L Fev6-LLN 3.99 L Nft4ulm-Qqsd 77 % Chv5yee-Pha 83 % Mma4qrk-%Pred-Pre 107 % Kjg0wtt-AFB 67 % Fkc7ejy-Khho 96 % Cgv8hku-Sbj 100 % Zfe8rgw-%Pred-Pre 104 % FEFMax-Pred 9.84 L/E/sec FEFMax-Pre 6.45 L/E/sec FEFMax-%Pred-Pre 65 L/E/sec FEFMax-LLN 7.45 L/E/sec Syu5614-Ptlz 3.37 L/E/sec Etq3863-Bza 3.08 L/E/sec Xtt9009-%Pred-Pre 91 L/E/sec Fgv3150-UPN 1.72 L/E/sec ExpTime-Pre 6.24 sec Rbi1rtm2-Vrtz 80 % Xah7ypq2-Gky 83 % Lec4ejv3-%Pred-Pre 103 % Csg6idj6-WYR 71 % Procedures Date Code Description Status 05/29/2021 50389 Office/Outpatient Established Mo d MDM 30-39 Min Completed 05/29/2021 25496 Spirometry Completed 04/17/2021 22514 Office/Outpatient Established Mo d MDM 30-39 Min Completed 04/17/2021 89236 Inhaler Teaching Completed 04/03/2021 06832 Office/Outpatient New Moderate M DM 45-59 Minutes Completed Medical Devices Description No Information Available Encounters Type Date Location Provider Dx Diagnosis Office Visit 05/29/2021 12:45p [facility] Violet Ballard, N.P. J45.40 Moderate persistent asthma, uncomplicate d Z87.891 Personal history of nicotine dependence R91.8 Other nonspecific abnormal f inding of lung field Office Visit 04/17/2021 8:30a [facility] Kaykay Rome MD J45.40 Moderate persistent asthma, uncomplicate d Z87.891 Personal history of nicotine dependence R91.8 Other nonspecific abnormal f inding of lung field Office Visit 04/03/2021 2:00p [facility] Kaykay Rome MD R06.02 Shortness of [...] 8:30 am - Rito Rome MD at [facility] 05/29/2021 - Becky Ballard, N.P.* J45.40 Moderate persistent asthma, uncomplicated * Z87.891 Personal history of nicotine dependence * R91.8 Other nonspecific abnormal finding of lung field * * New Labs:* FVL/Harlan, Ordered: 05/29/21 * Follow up:* 1. Follow up in 6 months time with fvl/spirometry with Dr. Rome. Functional Status Description No Information Available Mental Status Description No Information Available Referrals Refer to Reason for Referral Status Appt Date Radiology/Procedure 14727 Closed 04/10/2021 Rito Rome M.D. CHRONIC BRONCHITIS Scheduled 04/03 [facility] [address] [place], [place] [address] [phone]
--- OUTSIDE RECORDS SUMMARY | 2021-08-28 15:07 | CCD ---
Author Author [facility] Organization [facility] Address Unknown Phone Unavailable Care Team Providers Care Permit Technician Name Role Phone Shelton, Celena Unavailable Unavailable Shelton, Celena Unavailable Unavailable Shelton, Celena Unavailable Unavailable Shelton, Celena Unavailable Unavailable Shelton, Celena Unavailable Unavailable Shelton, Celena Unavailable Unavailable Alexandr Dixon MD Unavailable Unavailable Alexandr Dixon MD Unavailable Unavailable Alexandr Dixon MD Unavailable Unavailable Alexandr Dixon MD Unavailable Unavailable Alexandr Dixon MD Unavailable Unavailable Alexandr Dixon MD Unavailable Unavailable Alexandr Dixon MD Unavailable Unavailable Alexandr Dixon MD Unavailable Unavailable Alexandr Dixon MD Unavailable Unavailable Alexandr Dixon MD Unavailable Unavailable Alexandr Dixon MD Unavailable Unavailable Alexandr Dixon MD Unavailable Unavailable DestinyAlexandr MD Unavailable Unavailable DestinyAlexandr MD Unavailable Unavailable DestinyAlexandr MD Unavailable Unavailable DestinyAlexandr MD Unavailable Unavailable DestinyAlexandr MD Unavailable Unavailable DestinyAlexandr MD Unavailable Unavailable DestinyAlexandr MD Unavailable Unavailable DestinyAlexandr MD Unavailable Unavailable DestinyAlexandr MD Unavailable Unavailable Destiny S Javon BASS Unavailable Unavailable DestinyAlexandr MD Unavailable Unavailable DestiynAlexandr MD Unavailable Unavailable DestinyAlexandr MD Unavailable Unavailable DestinyAlexandr MD Unavailable Unavailable DestinyAlexandr MD Unavailable Unavailable DestinyAlexandr MD Unavailable Unavailable DestinyAlexandr MD Unavailable Unavailable Alexandr Dixon MD Unavailable Unavailable Alexandr Dixon MD Unavailable Unavailable Alexandr Dixon MD Unavailable Unavailable Alexandr Dixon MD Unavailable Unavailable Alexandr Dixon MD Unavailable Unavailable Alexandr Dixon MD Unavailable Unavailable Alexandr Dixon MD Unavailable Unavailable Alexandr Dixon MD Unavailable Unavailable Alexandr Dixon MD Unavailable Unavailable Alexandr Dixon MD Unavailable Unavailable Alexandr Dixon MD Unavailable Unavailable Alexandr Dixon MD Unavailable Unavailable Alexandr Dixon MD Unavailable Unavailable Alexandr Dixon MD Unavailable Unavailable Alexandr Dixon MD Unavailable Unavailable Alexandr Dixon MD Unavailable Unavailable Alexandr Dixon MD Unavailable Unavailable Alexandr Dixon MD Unavailable Unavailable Alexandr Dixon MD Unavailable Unavailable Alexandr Dixon MD Unavailable Unavailable Alexandr Dixon MD Unavailable Unavailable Alexandr Dixon MD Unavailable Unavailable Joanne Larsen MD Unavailable Unavailable Joanne Larsen MD Unavailable Unavailable Joanne Larsen MD Unavailable Unavailable Joanne Larsen MD Unavailable Unavailable Joanne Larsen MD Unavailable Unavailable Joanne Larsen MD Unavailable Unavailable Joanne Larsen MD Unavailable Unavailable Joanne Larsen MD Unavailable Unavailable Joanne Larsen MD Unavailable Unavailable Joanne Larsen MD Unavailable Unavailable Joanne Larsen MD Unavailable Unavailable Joanne Larsen MD Unavailable Unavailable Joanne Larsen MD Unavailable Unavailable Joanne Larsen MD Unavailable Unavailable Miguelangel, D Obi Unavailable Unavailable Miguelangel, D Obi Unavailable Unavailable Miguelangel, D Obi Unavailable Unavailable Miguelangel, D Obi Unavailable Unavailable Miguelangel, D Obi Unavailable Unavailable Miguelangel, D Obi Unavailable Unavailable Miguelangel, D Obi Unavailable Unavailable Miguelangel, D Obi Unavailable Unavailable Miguelangel, D Obi Unavailable Unavailable Miguelangel, D Obi Unavailable Unavailable Miguelangel, D Obi Unavailable Unavailable Miguelangel, D Obi Unavailable Unavailable Miguelangel, D Obi Unavailable Unavailable Miguelangel, D Obi Unavailable Unavailable Miguelangel, D Obi Unavailable Unavailable Miguelangel, D Obi Unavailable Unavailable Miguelangel, D Obi Unavailable Unavailable Miguelangel, D Obi Unavailable Unavailable Rae, Joyce Unavailable Unavailable Rae, Joyce Unavailable Unavailable Rae, Joyce Unavailable Unavailable Rae, Joyce Unavailable Unavailable Rae, Joyce Unavailable Unavailable Rae, Joyce Unavailable Unavailable Rae, Joyce Unavailable Unavailable Rae, Joyce Unavailable Unavailable Rae, Joyce Unavailable Unavailable Rae, Joyce Unavailable Unavailable Rae, Joyce Unavailable Unavailable Rae, Joyce Unavailable Unavailable Rae, Joyce Unavailable Unavailable Rae, Joyce Unavailable Unavailable Rae, Joyce Unavailable Unavailable Rae, Joyce Unavailable Unavailable Are, Joyce Unavailable Unavailable Rae, Joyce Unavailable Unavailable Rae, Joyce Unavailable Unavailable Rae, Joyce Unavailable Unavailable Rae, Joyce Unavailable Unavailable Rae, Joyce Unavailable Unavailable Rae, Joyce Unavailable Unavailable Rae, Joyce Unavailable Unavailable Rae, Joyce Unavailable Unavailable Rae, Ojyce Unavailable Unavailable Rae, Joyce Unavailable Unavailable Rae, Joyce Unavailable Unavailable Graciela Thompson MD Unavailable Unavailable Graciela Thompson MD Unavailable Unavailable Graciela Thompson MD Unavailable Unavailable Graciela Thompson MD Unavailable Unavailable Graciela Thompson MD Unavailable Unavailable Graciela Thompson MD Unavailable Unavailable Graciela Thompson MD Unavailable Unavailable Graciela Thompson MD Unavailable Unavailable Graciela Thompson MD Unavailable Unavailable Graciela Thompson MD Unavailable Unavailable Graciela Thompson MD Unavailable Unavailable Nikolavsky, Graciela MD Unavailable Unavailable Nikolavsky Graciela MD Unavailable Unavailable Nikolavsky, Graciela MD Unavailable Unavailable Nikolavsky Graciela MD Unavailable Unavailable Nelsonolavsky Graciela MD Unavailable Unavailable Nikolavsky Graciela MD Unavailable Unavailable Nikolavsky Graciela MD Unavailable Unavailable Nikolavsky Graciela MD Unavailable Unavailable Nikolavsky Graciela MD Unavailable Unavailable Nikolavsky Graciela MD Unavailable Unavailable Nikolavsky Graciela MD Unavailable Unavailable Nikolavsky Graciela MD Unavailable Unavailable Nikolavsky Graciela MD Unavailable Unavailable Nikolavsky Graciela MD Unavailable Unavailable Nelsonolavsky Graciela MD Unavailable Unavailable Nelsonolavsky Graciela MD Unavailable Unavailable Nelsonolavsky Graciela MD Unavailable Unavailable Nelsonolavsky Graciela MD Unavailable Unavailable Nelsonolavsky Graciela MD Unavailable Unavailable Nelsonolamesfinky Graciela MD Unavailable Unavailable Nelsonolamesfinky Graciela MD Unavailable Unavailable Nelsonolavsky Graciela MD Unavailable Unavailable Nelsonolamesfinky Graciela MD Unavailable Unavailable Nelsonolavsky Graciela MD Unavailable Unavailable Nelsonolamesfinky Graciela MD Unavailable Unavailable Nelsonolavsky Graciela MD Unavailable Unavailable Nelsonolavsky Graciela MD Unavailable Unavailable Nelsonolavsky Graciela MD Unavailable Unavailable Nelsonolavsky Graciela MD Unavailable Unavailable Nelsonolamesfinky Graciela MD Unavailable Unavailable Nelsonolavsky Graciela MD Unavailable Unavailable Nelsonolavsky Graciela MD Unavailable Unavailable Nelsonolavsky Graciela MD Unavailable Unavailable Nikolavsky Graciela MD Unavailable Unavailable Nelsonolavsky Graciela MD Unavailable Unavailable Nelsonolavsky Graciela MD Unavailable Unavailable Nelsonolavsky Graciela MD Unavailable Unavailable Nelsonolavsky Graciela MD Unavailable Unavailable Nikolavsky Graciela MD Unavailable Unavailable Nikolavsky, Graciela MD Unavailable Unavailable Nikolavsky Graciela MD Unavailable Unavailable Nelsonolavsky Graciela MD Unavailable Unavailable Veley, Lucy TIRE SPOTTER Unavailable Unavailable Veley, Lucy TIRE SPOTTER Unavailable Unavailable Veley, Lucy TIRE SPOTTER Unavailable Unavailable Veley, Lucy TIRE SPOTTER Unavailable Unavailable Veley, Lucy TIRE SPOTTER Unavailable Unavailable Veley, Lucy TIRE SPOTTER Unavailable Unavailable Veley, Lucy TIRE SPOTTER Unavailable Unavailable Veley, Lucy TIRE SPOTTER Unavailable Unavailable Veley, Lucy TIRE SPOTTER Unavailable Unavailable Veley, Lucy TIRE SPOTTER Unavailable Unavailable Veley, Lucy TIRE SPOTTER Unavailable Unavailable Veley, Lucy TIRE SPOTTER Unavailable Unavailable Veley, Lucy TIRE SPOTTER Unavailable Unavailable Veley, Lucy TIRE SPOTTER Unavailable Unavailable Veley, Lucy TIRE SPOTTER Unavailable Unavailable Veley, Lucy TIRE SPOTTER Unavailable Unavailable Veley, Lucy TIRE SPOTTER Unavailable Unavailable Veley, Lucy TIRE SPOTTER Unavailable Unavailable Veley, Lucy TIRE SPOTTER Unavailable Unavailable Veley, Lucy TIRE SPOTTER Unavailable Unavailable Veley, Lucy TIRE SPOTTER Unavailable Unavailable Veley, Lucy TIRE SPOTTER Unavailable Unavailable Veley, Lucy TIRE SPOTTER Unavailable Unavailable Veley, Lucy TIRE SPOTTER Unavailable Unavailable Veley, Lucy TIRE SPOTTER Unavailable Unavailable Veley, Lucy TIRE SPOTTER Unavailable Unavailable Veley, Lucy TIRE SPOTTER Unavailable Unavailable Veley, Lucy TIRE SPOTTER Unavailable Unavailable Veley, Lucy TIRE SPOTTER Unavailable Unavailable Veley, Lucy TIRE SPOTTER Unavailable Unavailable Veley, Lucy TIRE SPOTTER Unavailable Unavailable Veley, Lucy TIRE SPOTTER Unavailable Unavailable Veley, Lucy TIRE SPOTTER Unavailable Unavailable Veley, Lucy TIRE SPOTTER Unavailable Unavailable Veley, Lucy TIRE SPOTTER Unavailable Unavailable Joanne ARGUELLES DPM Unavailable Unavailable Joanne ARGUELLES DPM Unavailable Unavailable Joanne ARGUELLES DPM Unavailable Unavailable Joanne ARGUELLES DPM Unavailable Unavailable KINDRA R BRYCE DPM Unavailable Unavailable MAJQUIQUE, R BRYCE DPM Unavailable Unavailable MAJQUIQUE, R BRYCE DPM Unavailable Unavailable MAJQUIQUE, R BRYCE DPM Unavailable Unavailable MAJQUIQUE, R BRYCE DPM Unavailable Unavailable KINDRA R BRYCE DPM Unavailable Unavailable KINDRA, R BRYCE DPM Unavailable Unavailable KINDRA, R BRYCE DPM Unavailable Unavailable MAJQUIQUE, R BRYCE DPM Unavailable Unavailable MAJQUIQUE, R BRYCE DPM Unavailable Unavailable KINDRA R BRYCE DPM Unavailable Unavailable KINDRA, R BRYCE DPM Unavailable Unavailable KINDRA, R BRYCE DPM Unavailable Unavailable MAJQUIQUE, R BRYCE DPM Unavailable Unavailable KINDRA, R BRYCE DPM Unavailable Unavailable MAJAK, R BRYCE DPM Unavailable Unavailable MAJAK, R BRYCE DPM Unavailable Unavailable MAJAK, R BRYCE DPM Unavailable Unavailable MAJAK, R BRYCE DPM Unavailable Unavailable MAJAK, R BRYCE DPM Unavailable Unavailable MAJAK, R BRYCE DPM Unavailable Unavailable MAJAK, R BRYCE DPM Unavailable Unavailable MAJAK, R BRYCE DPM Unavailable Unavailable MAJAK, R BRYCE DPM Unavailable Unavailable MAJAK, R BRYCE DPM Unavailable Unavailable MAJAK, R BRYCE DPM Unavailable Unavailable MAJAK, R BRYCE DPM Unavailable Unavailable MAJAK, R BRYCE DPM Unavailable Unavailable MAJAK, R BRYCE DPM Unavailable Unavailable Priyank, A Angelic BASS Unavailable [...] Unavailable Priyank, A Angelic BASS Unavailable Unavailable Piryank, A Angelic BASS Unavailable Unavailable Priyank, A Angelic BASS Unavailable Unavailable Priyank, A Angelic BASS Unavailable Unavailable Priyank, A Angelic BASS Unavailable Unavailable Priyank, A Angelic BASS Unavailable Unavailable Priyank, A Angelic BASS Unavailable Unavailable Priyank, A Angelic MD Unavailable Unavailable Priyank, A Angelic BASS [...] Angelic BASS Unavailable Unavailable Priyank, A Angelic MD Unavailable Unavailable Priyank, Loli Atwood MD [...] Priyank, Loli Atwood MD Unavailable Unavailable Priyank, Lloi Atwood MD Unavailable Unavailable Priyank, Loli Atwood MD Unavailable Unavailable Priyank, Loli Atwood MD Unavailable Unavailable Priyank, Loli Atwood MD Unavailable Unavailable Priyank, Loli Atwood MD Unavailable Unavailable Priyank, Loli Atwood MD Unavailable Unavailable Priyank, Loli Atwood MD Unavailable Unavailable Priyank, Loli Atwood MD Unavailable Unavailable Priyank, Loli Atwood MD Unavailable Unavailable Priyank, Loli Atwood MD Unavailable Unavailable Reg MEANS MD Unavailable Unavailable Reg MEANS MD Unavailable Unavailable Reg MEANS MD Unavailable Unavailable Reg MEANS MD Unavailable Unavailable Reg MEANS MD Unavailable Unavailable Reg MEANS MD Unavailable Unavailable Reg MEANS MD Unavailable Unavailable Reg MEANS MD Unavailable Unavailable Reg MEANS MD Unavailable Unavailable Reg MEANS MD Unavailable Unavailable Braden Torres MD Unavailable Unavailable Braden Torres MD Unavailable Unavailable Braden Torres MD Unavailable Unavailable Braden Torres MD Unavailable Unavailable Braden Torres MD Unavailable Unavailable Braden Torres MD Unavailable Unavailable Braden Torres MD Unavailable Unavailable Braden Torres MD Unavailable Unavailable Braden Torres MD Unavailable Unavailable Braden Torres MD Unavailable Unavailable Braden Torres MD Unavailable Unavailable RING, K DOLORES PA Unavailable [...] Unavailable RING, K DOLORES PA Unavailable Unavailable Cassidy, E Charisse TIRE SPOTTER Unavailable Unavailable Cassidy, E Charisse TIRE SPOTTER Unavailable Unavailable Cassidy, E Charisse TIRE SPOTTER Unavailable Unavailable Cassidy, E Charisse TIRE SPOTTER Unavailable Unavailable Cassidy, E Charisse TIRE SPOTTER Unavailable Unavailable Cassidy, E Charisse TIRE SPOTTER Unavailable Unavailable Cassidy, E Charisse TIRE SPOTTER Unavailable Unavailable Cassidy, E Charisse TIRE SPOTTER Unavailable Unavailable Cassidy, E Charisse TIRE SPOTTER Unavailable Unavailable Cassidy, E Charisse TIRE SPOTTER Unavailable Unavailable Cassidy, E Charisse TIRE SPOTTER Unavailable Unavailable Cassidy, E Charisse TIRE SPOTTER Unavailable Unavailable Cassidy, E Charisse TIRE SPOTTER Unavailable Unavailable Cassidy, E Charisse TIRE SPOTTER Unavailable Unavailable Cassidy, E Charisse TIRE SPOTTER Unavailable Unavailable Cassidy, E Charisse TIRE SPOTTER Unavailable Unavailable Cassidy, E Charisse TIRE SPOTTER Unavailable Unavailable Cassidy, E Charisse TIRE SPOTTER Unavailable Unavailable Cassidy, E Charisse TIRE SPOTTER Unavailable Unavailable Cassidy, E Charisse TIRE SPOTTER Unavailable Unavailable Cassidy, E Charisse TIRE SPOTTER Unavailable Unavailable Cassidy, E Charisse TIRE SPOTTER Unavailable Unavailable Cassidy, E Charisse TIRE SPOTTER Unavailable Unavailable PRYBYLOWSKI, E TITA PA Unavailable [...] Unavailable PRYBYLOWSKI, E TITA PA Unavailable Unavailable Fish, Stephanie Hoyt MD Unavailable Unavailable Fish, Stephanie Hoyt MD Unavailable Unavailable Fish, Stephanie Hoyt MD Unavailable Unavailable Fish, Stephanie Hoyt MD Unavailable Unavailable Fish, Stephanie Hoyt MD Unavailable Unavailable Fish, Stephanie Hoyt MD Unavailable Unavailable Fish, Stephanie Hoyt MD Unavailable Unavailable Fish, Stephanie Hoyt MD Unavailable Unavailable Fish, Stephanie Hoyt MD Unavailable Unavailable Fish, Stephanie Hoyt MD Unavailable Unavailable Fish, Stephanie Hoyt MD Unavailable Unavailable Fish, Stephanie Hoyt MD Unavailable Unavailable Fish, Stephanie Hoyt MD Unavailable Unavailable Fish, Stephanie Hoyt MD Unavailable Unavailable Fish, Stephanie Hoyt MD Unavailable Unavailable Fish, Stephanie Hoyt MD Unavailable Unavailable Fish, Stephanie Hoyt MD Unavailable Unavailable Fish, Stephanie Hoyt MD Unavailable Unavailable Fish, Stephanie Hoyt MD Unavailable Unavailable Fish, Stephanie Hoyt MD Unavailable Unavailable Fish, Stephanie Hoyt MD Unavailable Unavailable Fish, Stephanie Hoyt MD Unavailable Unavailable Fish, Stephanie Hoyt MD Unavailable Unavailable Fish, Stephanie Hoyt MD Unavailable Unavailable Fish, Stephanie Hoyt MD Unavailable Unavailable Fish, Stephanie Hoyt MD Unavailable Unavailable Fish, Stephanie Hoyt MD Unavailable Unavailable Fish, Stephanie Hoyt MD Unavailable Unavailable Fish, Stephanie Hoyt MD Unavailable Unavailable Fish, Stephanie Hoyt MD Unavailable Unavailable Fish, Stephanie Hoyt MD Unavailable Unavailable Fish, Stephanie Hoyt MD Unavailable Unavailable Fish, Stephanie Hoyt MD Unavailable Unavailable Fish, Stephanie Hoyt MD Unavailable Unavailable Fish, Stephanie Hoyt MD Unavailable Unavailable Fish, Stephanie Hoyt MD Unavailable Unavailable Fish, Stephanie Hoyt MD Unavailable Unavailable Fish, Stephanie Hoyt MD Unavailable Unavailable Fish, Stephanie Hoyt MD Unavailable Unavailable Fish, Stephanie Hoyt MD Unavailable Unavailable Fish, Stephanie Hoyt MD Unavailable Unavailable Fish, Stephanie Hoyt MD Unavailable Unavailable Fish, Stephanie Hoyt MD Unavailable Unavailable Fish, Stephanie Hoyt MD Unavailable Unavailable Fish, Stephanie Hoyt MD Unavailable Unavailable Fish, Stephanie Hoyt MD Unavailable Unavailable Fish, Stephanie Hoyt MD Unavailable Unavailable Fish, Stephanie Hoyt MD Unavailable Unavailable Fish, Stephanie Hoyt MD Unavailable Unavailable Fish, Stephanie Hoyt MD Unavailable Unavailable Fish, Stephanie Hoyt MD Unavailable Unavailable Fish, Stephanie Hoyt MD Unavailable Unavailable Fish, Stephanie Hoyt MD Unavailable Unavailable Fish, Stephanie Hoyt MD Unavailable Unavailable Fish, Stephanie Hoyt MD Unavailable Unavailable Fish, Stephanie Hoyt MD Unavailable Unavailable Fish, Stephanie Hoyt MD Unavailable Unavailable Fish, Stephanie Hoyt MD Unavailable Unavailable Fish, B Evelina BASS Unavailable Unavailable Fish, B Evelina BASS Unavailable Unavailable Fish, B Evelina BASS Unavailable Unavailable Fish, B Evelina BASS Unavailable Unavailable Fish, B Evelina BASS Unavailable Unavailable Fish, B Evelina BASS Unavailable Unavailable Fish, B Evelina BASS Unavailable Unavailable ASHLEY, AMMON MOLLY COLLIERY CLERK-C Unavailable Unavailable ASHLEY, AMMON MOLLY COLLIERY CLERK-C Unavailable Unavailable ASHLEY, AMMON MOLLY COLLIERY CLERK-C Unavailable Unavailable ASHLEY, AMMON MOLLY COLLIERY CLERK-C Unavailable Unavailable ASHLEY, AMMON MOLLY COLLIERY CLERK-C Unavailable Unavailable ASHLEY, AMMON MOLLY COLLIERY CLERK-C Unavailable Unavailable ASHLEY, AMMON MOLLY COLLIERY CLERK-C Unavailable Unavailable ASHLEY, AMMON MOLLY COLLIERY CLERK-C Unavailable Unavailable ASHLEY, AMMON MOLLY COLLIERY CLERK-C Unavailable Unavailable ASHLEY, AMMON MOLLY COLLIERY CLERK-C Unavailable Unavailable ASHLEY, AMMON MOLLY COLLIERY CLERK-C Unavailable Unavailable ASHLEY, AMMON MOLLY COLLIERY CLERK-C Unavailable Unavailable ASHLEY, AMMON MOLLY COLLIERY CLERK-C Unavailable Unavailable ASHLEY, AMMON MOLLY COLLIERY CLERK-C Unavailable Unavailable ASHLEY, AMMON MOLLY COLLIERY CLERK-C Unavailable Unavailable ASHLEY, AMMON MOLLY COLLIERY CLERK-C Unavailable Unavailable ASHLEY, AMMON MOLLY COLLIERY CLERK-C Unavailable Unavailable Real Rome MD Unavailable Unavailable Real Rome MD Unavailable Unavailable Real Rome MD Unavailable Unavailable Real Rome MD Unavailable Unavailable Real Rome MD Unavailable Unavailable Real Rome MD Unavailable Unavailable Real [place] MD Unavailable Unavailable Real [place] MD Unavailable Unavailable Real [place] MD Unavailable Unavailable Real [place] MD Unavailable Unavailable Real [place] MD Unavailable Unavailable Real [place] MD Unavailable Unavailable Real [place] MD Unavailable Unavailable Real [place] MD Unavailable Unavailable Real [place] MD Unavailable Unavailable Real [place] MD Unavailable Unavailable Real [place] MD Unavailable Unavailable Real [place] MD Unavailable Unavailable Real [place] MD Unavailable Unavailable Real Rome MD Unavailable Unavailable Real Rome MD Unavailable Unavailable Real Rome MD Unavailable Unavailable Real Rome MD Unavailable Unavailable Real Rome MD Unavailable Unavailable Real Rome MD Unavailable Unavailable Real Rome MD Unavailable Unavailable Real Rome MD Unavailable Unavailable Real Rome MD Unavailable Unavailable Real Rome MD Unavailable Unavailable Rome, Real Rito MD Unavailable Unavailable Rome, Real Rito MD Unavailable Unavailable Rome, Real Rito MD Unavailable Unavailable Rome, Real Rito MD Unavailable Unavailable Rome, Real Rito MD Unavailable Unavailable Rome, Real Rito MD Unavailable Unavailable Rome, Real Rito MD Unavailable Unavailable Rome, Real Rito MD Unavailable Unavailable Rome, Real Rito MD Unavailable Unavailable Rome, Real Rito MD Unavailable Unavailable Rmoe, Real Rito MD Unavailable Unavailable Rome, Real Rito MD Unavailable Unavailable Rome, Real Rito MD Unavailable Unavailable Rome, Real Rito MD Unavailable Unavailable Rome, Real Rito MD Unavailable Unavailable Rome, Real Rito MD Unavailable Unavailable Rome, Real Rito MD Unavailable Unavailable Roem, Real Rito MD Unavailable Unavailable Rome, Real Rito MD Unavailable Unavailable Rome, Real Rito MD Unavailable Unavailable Rome, Real Rito MD Unavailable Unavailable Rome, Real Rito MD Unavailable Unavailable Rome, Real Rito MD Unavailable Unavailable Rome, Real Rito MD Unavailable Unavailable Rome, Real Rito MD Unavailable Unavailable Rome, Real Rito MD Unavailable Unavailable Re-disclosure Warning The records that [...] is protected by Article 27-F of the [facility] Public Health law. If you continue you may have access to information: Regarding HIV / AIDS; Provided by facilities licensed or operated by the [facility] Office of Mental Health; or Provided by the [facility] Office for People With Developmental Disabilities. If such information is present, then the following [facility] mandated warning applies: This information has been [...] law may result in a fine or senior living sentence or both. A general authorization for the release of medical or other information is NOT sufficient authorization for further disc losure. Allergies and Adverse Reactions Type Description Substance Reaction Status Data Source(s ) Allergy to substance Allergy to substance Allergy to substance ANSON ([facility]) Allergy to substance Allergy to substance Allergy to substance JOVON ([facility]) Allergy to substance Allergy to substance Allergy to substance ANSON ([facility]) Family History Family Member Name Family Member Gender Family Member Status Date o f Status Description Data Source(s) Unknown Female Diagnosis 03/27/2020 12:00:00 AM EDT [facility] ([facility]) Unknown Unknown Problem [facility] father's side sister Unknown Male Problem MEDENT ([facility] Unknown Male Problem [facility]ENT ([facility]) Unknown Female Problem [facility] ([facility]) Unknown Female Problem [facility] ([facility]) Unknown Female Problem MED[facility] ([facility]) Encounters Encounter Providers Location Date Indications Data Source(s ) Outpatient Attender: Evelina Soliz MD Physical Therapy 07/22 09:45:00 AM EDT [facility] ([facility]) Celena Mcbride MD: [address] [place] [address], Ph. Attender: Celena Mcbride [facility] 07/12/2021 12:00:00 AM EDT ANSON ([facility]) Celena Mcbride MD: [address] [place] [address], Ph. Attender: Celena Mcbride [facility] 06/07/2021 12:00:00 AM EDT JOVON ([facility]) Celena Mcbride MD: [address], [place] [address], Ph. Attender: Celena Mcbride [facility] 06/07/2021 12:00:00 AM EDT JOVON ([facility]) Outpatient Attender: MOLLY ASHLEY [place] 05/29/2021 12:45:00 PM EDT MED[facility] ([facility]) Attender: TITA Granger 05/20/2021 10:23:00 AM EDT - 05/20/2021 10:23:00 AM EDT [facility] ([facility]) Outpatient Attender: Rito Knight/[place] 04/17/2021 08:30:00 AM EDT [facility] ([facility]) Attender: Celena Granger 04/15 01:53:00 PM EDT - 04/15/2021 01:53:00 PM EDT [facility] ([facility]) Attender: TITA Lopez 04/12/2021 10:30:00 AM EDT - 04/12/2021 10:30:00 AM EDT Gender identity disorder, unspecified [facility] ([facility]) Gender identity disorder, unspecified Outpatient Attender: Rito [facility] 04/03/2021 02:00:00 PM EDT MEDENT ([facility]) Attender: Angelic Granger 0 03/28/2021 03:52:00 PM EDT - 03/28/2021 03:52:00 PM EDT NextGen ([facility]) Outpatient Attender: Evelina Soliz MD Physical Therapy 03/21 02:30:00 PM EDT MEDENT ([facility]) Outpatient Attender: Graciela Thompson MDReferrer: Lucy Ceron NP [id number] 03/06/2021 12:00:00 AM EDT - 03/06/2021 04:18:40 PM EDT [facility] Celena Mcbride MD: [address] [place] [address], [place] [address], Ph. Attender: Celena Mcbride [facility] 03/05/2021 12:00:00 AM EDT JOVON ([facility]) Celena Mcbride MD: [address] , [place] [address], Ph. Attender: Celena Mcbride [facility] 03/05/2021 12:00:00 AM EDT JOVON ([facility]) Celena Mcbride MD: [address] [place] [address], Ph. Attender: Celena Mcbride [facility] 03/05/2021 12:00:00 AM EDT ANSON ([facility]) Outpatient Attender: Graciela Thompson MDAdmitter: Graciela Thompson MD [id number] 02/19/2021 12:00:00 AM EDT - 02/20/2021 08:34:00 AM ED T Gender identity disorder, unspecified [facility] Gender identity disorder, unspecified Patient discharged. Outpatient Attender: Damaris Torres MDReferrer: Graciela niño MD 02/13/2021 12:00:00 AM EDT [facility] pretest Celena Mcbride MD: [address] [place] [address], Ph. Attender: Celena Mcbride [facility] 02/12/2021 12:00:00 AM EDT JOVON ([facility]) Celena Mcbride MD: [address] [place] [address], Ph. Attender: Celena Mcbride [facility] 02/12/2021 12:00:00 AM EDT JOVON ([facility]) Celena Mcbride MD: [address], [place] [address], Ph. Attender: Celena Mcbride [facility] 02/12/2021 12:00:00 AM EDT JOVON ([facility]) Celena Mcbride MD: [address], [place] [address], Ph. Attender: Celena Mcbride [facility] 02/12/2021 12:00:00 AM EDT JOVON ([facility]) Outpatient Attender: Graciela BALDERASeferrer: Lucy Ceron NP [id number] 01/28/2021 12:00:00 AM EDT - 01/28/2021 12:29:32 PM ED T Gender identity disorder, unspecified [facility] Gender identity disorder, unspecified Celena Mcbride MD: [address], [place] [address], Ph. Attender: Celena Mcbride [facility] 01/21/2021 12:00:00 AM EDT JOVON ([facility]) Celena Mcbride MD: [address], [place] [address], Ph. Attender: Celena Mcbride [facility] 01/21/2021 12:00:00 AM EDT JOVON ([facility]) Celena Mcbride MD: [address], [place] [address], Ph. Attender: Celena Mcbride [facility] 01/21/2021 12:00:00 AM EDT JOVON ([facility]) Celena Mcbride MD: [address], [place] [address], Ph. Attender: Celena Mcbride [facility] 01/21/2021 12:00:00 AM EDT JOVON ([facility]) Celena Mcbride MD: [address], [place] [address], Ph. Attender: Celena Mcbride [facility] 01/21/2021 12:00:00 AM EDT JOVON ([facility]) Celena Mcbride MD: [address], [place] [address], Ph. Attender: Celena Mcbride [facility] 12/19/2020 12:00:00 AM EDT JOVON ([facility]) Celena Mcbride MD: [address], [place] [address], Ph. Attender: Celena Mcbride [facility] 12/19/2020 12:00:00 AM EDT JOVON ([facility]) Celena Mcbride MD: [address], [place] [address], Ph. Attender: Celena Mcbride [facility] 12/19/2020 12:00:00 AM EDT JOVON ([facility]) Celena Mcbride MD: [address], [place] [address], Ph. Attender: Celena Mcbride [facility] 12/19/2020 12:00:00 AM EDT JOVON ([facility]) Celena Mcbride MD: [address], [place] [address], Ph. Attender: Celena Mcbride [facility] 12/19/2020 12:00:00 AM EDT JOVON ([facility]) Celena Mcbride MD: [address], [place] [address], Ph. Attender: Celena Mcbride [facility] 12/19/2020 12:00:00 AM EDT JOVON ([facility]) Outpatient Attender: Evelina Soliz MD Physical Therapy 12/14 11:45:00 AM EDT LAURA ([facility]) Outpatient Attender: Jurgen Larsen MD 12/13/2020 12:00:[address] [facility] Celena Mcbride MD: [address], [place] [address], Ph. Attender: Celena Mcbride [facility] 12/12/2020 12:00:00 AM EDT JOVON ([facility]) Celena Mcbride MD: [address], [place] [address], Ph. Attender: Celena Mcbride [facility] 12/12/2020 12:00:00 AM EDT JVOON ([facility]) Celena Mcbride MD: [address], [place] [address], Ph. Attender: Celena Mcbride [facility] 12/12/2020 12:00:00 AM EDT JOVON ([facility]) Celena Mcbride MD: [address], [place] [address], Ph. Attender: Celena Mcbride [facility] 12/12/2020 12:00:00 AM EDT JOVON ([facility]) Celena Mcbride MD: [address], [place] [address], Ph. Attender: Celena Mcbride [facility] 12/12/2020 12:00:00 AM EDT JOVON ([facility]) Celena Mcbride MD: [address], [place] [address], Ph. Attender: Celena Mcbride [facility] 12/12/2020 12:00:00 AM EDT JOVON ([facility]) Celena Mcbride MD: [address], [place] [address], Ph. Attender: Celena Mcbride [facility] 12/12/2020 12:00:00 AM EDT JOVON ([facility]) Outpatient Attender: Obi eMans 12/12/2020 12:00:[address] [facility] Outpatient Attender: Jurgen Larsen MD 12/07/2020 12:00:[address] [facility] Outpatient Attender: NATHEN MEANS MD [facility] [place] 12/06/2020 02:30:00 PM EDT [facility] Attender: TITA Granger 11/30/2020 10:05:00 AM EST - 11/30/2020 10:05:00 AM EST [facility] ([facility]) Attender: TITA Granger 11/14/2020 10:17:00 AM EST - 11/14/2020 10:17:00 AM EST [facility] ([facility]) Attender: Angelic Arauz 12:30:00 PM EST - 11/13/2020 12:30:00 PM EST [facility] ([facility]) Attender: Angelic Arauz 08/2021 08:07:00 AM EST - 11/02/2020 08:07:00 AM EST [facility] ([facility]) Outpatient Attender: BRYCE ARGUELLES [facility] Office 10/22 08:00:00 AM EST MEDENT ([facility] Outpatient Attender: Javon Dixon MD Main Office 10/23/2020 08:00:00 AM EST MEDENT ([facility]) Attender: TITA Granger 10/17/2020 03:17:00 PM EST - 10/17/2020 03:17:00 PM EST [facility] ([facility]) Attender: TITA Lopez 10/12/2020 10:30:00 AM EST - 10/12/2020 10:30:00 AM EST Gender identity disorder, unspecified [facility] ([facility]) Gender identity disorder, unspecified Outpatient Attender: DOLORES Corrales [facility] 10/11/2020 11:00:00 AM EST [facility] ([facility]) Attender: TITA Lopez 10/03/2020 03:34:00 PM EST - 10/03/2020 03:34:00 PM EST [facility] ([facility]) Attender: TITA Granger 09/27/2020 01:16:00 PM EST - 09/27/2020 01:16:00 PM EST [facility] ([facility]) Attender: TITA Granger 09/25/2020 01:27:00 PM EST - 09/25/2020 01:27:00 PM EST [facility] ([facility]) Outpatient Attender: Evelina Soliz MD Physical Therapy 09/20 02:00:00 PM EST [facility] ([facility]) Attender: Angelic Granger 1 10/31/2019 10:49:00 AM EST - 08/30/2020 10:49:00 AM EST [facility] ([facility]) Attender: TITA Granger 08/29/2020 07:43:00 AM EST - 08/29/2020 07:43:00 AM EST [facility] ([facility]) Attender: TITA Granger 08/28/2020 09:48:00 AM EST - 08/28/2020 09:48:00 AM EST [facility] ([facility]) Outpatient Attender: Evelina Soliz MD Physical Therapy 08/20 12:45:00 PM EST MEDENT ([facility]) Attender: TITA Granger 07/24/2020 09:24:00 AM EST - 07/24/2020 09:24:00 AM EST [facility] ([facility]) Attender: TITA Granger 07/23/2020 10:13:00 AM EST - 07/23/2020 10:13:00 AM EST [facility] ([facility]) Attender: TITA Stoll 09:01:00 AM EDT - 07/18/2020 09:01:00 AM EDT [facility] ([facility]) Attender: TITA Stoll 11:42:00 AM EDT - 07/17/2020 11:42:00 AM EDT [facility] ([facility]) Attender: TITA Granger 07/16/2020 12:42:00 PM EDT - 07/16/2020 12:42:00 PM EDT [facility] ([facility]) Attender: TITA Lopez 07/13/2020 10:30:00 AM EDT - 07/13/2020 10:30:00 AM EDT Gender Identity Disorder [facility] ([facility]) Gender Identity Disorder Outpatient FP 07/11/2020 09:38:00 AM EDT [facility] SUSANNE Malin-BC: [address], [place] [address], Ph. Attender: Charisse Cassidy NP [facility] 07/11/2020 12:00:00 AM EDT JOVON ([facility]) SUSANNE Malin-BC: [address], [place] [address], Ph. Attender: Charisse Cassidy NP [facility] 07/11/2020 12:00:00 AM EDT ANSON ([facility]) SUSANNE Malin-BC: [address], [place] [address], Ph. Attender: Charisse Cassidy NP [facility] 07/11/2020 12:00:00 AM EDT ANSON ([facility]) SUSANNE Malin-BC: [address], [place] [address], Ph. Attender: Charisse Cassidy NP [facility] 07/11/2020 12:00:00 AM EDT ANSON ([facility]) SUSANNE Malin-BC: [address], [place] [address], Ph. Attender: Charisse Cassidy NP [facility] 07/11/2020 12:00:00 AM EDT ANSON ([facility]) SUSANNE Malin-BC: [address], [place] [address], Ph. Attender: Charisse Cassidy NP [facility] 07/11/2020 12:00:00 AM EDT JOVON ([facility]) SUSANNE Malin-BC: [address], [place] [address], Ph. Attender: Charisse Cassidy NP [facility] 07/11/2020 12:00:00 AM EDT [facility]) XUAN Malin: [address], [place] [address], Ph. Attender: Charisse Cassidy NP [facility] 07/11/2020 12:00:00 AM EDT [facility]) BLAIR MalinBC: [address], [place] [address], Ph. Attender: Charisse Cassidy NP [facility] 07/11/2020 12:00:00 AM EDT [facility]) XUAN Malin: [address], [place] [address], Ph. Attender: Charisse Cassidy NP [facility] 07/11/2020 12:00:00 AM EDT ANSON ([facility]) Medications Medication Brand Name Start Date Product Form Dose Route Admi nistrative Instructions Pharmacy Instructions Status Indications Reaction Description Data Source(s) 60 ACTUAT Fluticasone propionate 0.113 M G/ACTUAT / Salmeterol xinafoate 0.014 MG/ACTUAT Dry Powder Inhaler 113-14 mcg/actuation FLUTICASONE PROPION/SALMETEROL 07/13/2021 12:00:00 AM EDT aerosol powdr breath activated 3 INHALE 1 PUFF BY MOUTH TWO TIMES A DAY INHALE 1 PUFF BY MOUTH TWO TIMES A DAY SOLD: 07/17/2021 [facility] 100 unit/mL 07/13/2021 12:00:00 AM EDT solution 60 USE DIRECTED WITH PUMP , MAXIMUM DAILY DOSE = 80 UNITS USE DIRECTED WITH PUMP , MAXIMUM SIRI Y DOSE = 80 UNITS SOLD: 07/17/2021 [facility] BLOOD SUGAR DIAGNOSTIC 07/13/2021 12:00:00 AM EDT strip 100 USE DIRECTED FOUR TIMES A DAY USE DIRECTED FOUR TIMES A DAY SOLD: 07/17/2021 [facility] 50 mcg (2,000 unit) 07/13/2021 12:00:00 AM EDT tablet 30 TAKE ONE TABLET BY MOUTH EVERY DAY TAKE ONE TABLET BY MOUTH EVERY DAY SOLD: 07/17/2021 [facility] 90 mcg/actuation 07/13/2021 12:00:00 AM EDT HFA aerosol inha ler 8 INHALE 2 PUFFS BY MOUTH EVERY 4 HOURS NEEDED INHALE 2 PUFFS BY MOUTH EVERY 4 HOURS NEEDED SOLD: 07/17/2021 [facility] BLOOD SUGAR DIAGNOSTIC 07/13/2021 12:00:00 AM EDT strip 100 USE DIRECTED FOUR TIMES A DAY USE DIRECTED FOUR TIMES A DAY SOLD: 08/16/2021 [facility] 90 mcg/actuation 07/13/2021 12:00:00 AM EDT HFA aerosol inha ler 8 INHALE 2 PUFFS BY MOUTH EVERY 4 HOURS NEEDED INHALE 2 PUFFS BY MOUTH EVERY 4 HOURS NEEDED SOLD: 08/16/2021 [facility] olodaterol 0.0025 MG/ACTUAT / tiotropium 0.0025 MG/ACTUAT Metered Dose Inhaler Stiolto Respimat 2.5 mcg-2.5 mcg/actuation solution for inhalation INHALE TWO PUFFS BY MOUTH EVERY DAY Stiolto Respimat 2.5 mcg-2.5 mcg/actuati on solution for inhalation INHALE TWO PUFFS BY MOUTH EVERY DAY 07/08/2021 12:00:00 AM EDT completed olodaterol 0.00 25 MG/ACTUAT / tiotropium 0.0025 MG/ACTUAT Inhalation Leopold JOVON ([facility]) Levofloxacin 750 MG Oral Tablet [Levaqui n] Levaquin 750 mg tablet Take 1 tablet every day by oral route for 7 days. Levaquin 750 mg tablet Take 1 tablet varsha ry day by oral route for 7 days. 07/07/2021 12:00:00 AM EDT 1 completed levofloxacin 750 MG Oral Tablet [Levaquin] JOVON ([facility]) Prednisone 10 MG Oral Tablet prednisone 10 mg tablet Take four tablets for 3 days then take three tablets for 3 days then take two tablets for 3 days then take one tablet for 3 days then stop prednisone 10 mg tablet Take four tablet s for 3 days then take three tablets for 3 days then take two tablets for 3 days then take one tablet for 3 days then stop 07/07/2021 12:00:00 AM EDT completed prednisone 10 MG Oral Tablet ATH JEYSON ([facility]) 10 mg 07/06/2021 12:00:00 AM EDT tablet 30 TAKE 4 TABLETS BY MOUTH ONCE DAILY FOR 3 DAYS, THEN 3 DAILY FOR 3 DAYS, THEN 2 DAILY FOR 3 DAYS, THEN 1 DAILY FOR 3 DAYS AND STOP TAKE 4 TABLETS BY MOUTH ONCE DAILY FOR 3 DAYS, THEN 3 DAILY FOR 3 DAYS, THEN 2 DAILY FOR 3 DAYS, THEN 1 DAILY FOR 3 DAYS AND STOP SOLD: 07/06/2021 [facility] 750 mg 07/06/2021 12:00:00 AM EDT tablet 7 TAKE ONE TABLET BY MOUTH EVERY DAY TAKE ONE TABLET BY MOUTH EVERY DAY SOLD: 07/06/2021 [facility] 50 mcg (2,000 unit) 06/07/2021 12:00:00 AM EDT capsule 30 TAKE ONE CAPSULE BY MOUTH ONCE DAILY TAKE ONE CAPSULE BY MOUTH ONCE DAILY SOLD: 08/16/2021 [facility] 50 mcg (2,000 unit) 06/07/2021 12:00:00 AM EDT capsule 30 TAKE ONE CAPSULE BY MOUTH ONCE DAILY TAKE ONE CAPSULE BY MOUTH ONCE DAILY SOLD: 06/10/2021 [facility] Estradiol 2 MG Oral Tablet ESTRADIOL 2 MG TABLET ESTRADIOL 2 MG TABLET 05/20/2021 12:00:00 AM EDT active TAKE ONE-HALF TABLET BY MOUTH TWO TIMES A DAY [facility] ([facility]) 2 mg 05/20/2021 12:00:00 AM EDT tablet 90 TAKE ONE-HALF TABLET BY MOUTH TWO TIMES A DAY TAKE ONE-HALF TABLET BY MOUTH TWO TIMES A DAY SOLD: 05/25/2021 [facility] 81 mg 05/20/2021 12:00:00 AM EDT tablet,delayed release (DR/EC) 30 TAKE ONE TABLET BY MOUTH ONCE DAILY TAKE ONE TABLET BY MOUTH ONCE DAILY SOLD: 07/24/2021 [facility] 81 mg 05/20/2021 12:00:00 AM EDT tablet,delayed release (DR/EC) 30 TAKE ONE TABLET BY MOUTH ONCE DAILY TAKE ONE TABLET BY MOUTH ONCE DAILY SOLD: 08/18/2021 [facility] 81 mg 05/20/2021 12:00:00 AM EDT tablet,delayed release (DR/EC) 30 TAKE ONE TABLET BY MOUTH ONCE DAILY TAKE ONE TABLET BY MOUTH ONCE DAILY SOLD: 05/20/2021 [facility] 81 mg 05/20/2021 12:00:00 AM EDT tablet,delayed release (DR/EC) 30 TAKE ONE TABLET BY MOUTH ONCE DAILY TAKE ONE TABLET BY MOUTH ONCE DAILY SOLD: 06/25/2021 [facility] 40 mg 05/18/2021 12:00:00 AM EDT capsule,delayed release (DR/EC) 90 TAKE ONE CAPSULE BY MOUTH ONCE DAILY TAKE ONE CAPSULE BY MOUTH ONCE DAILY SOLD: 08/16/2021 [facility] 40 mg 05/18/2021 12:00:00 AM EDT capsule,delayed release (DR/EC) 90 TAKE ONE CAPSULE BY MOUTH ONCE DAILY TAKE ONE CAPSULE BY MOUTH ONCE DAILY SOLD: 05/19/2021 [facility] 40 mg 05/18/2021 12:00:00 AM EDT tablet 90 TAKE ONE TABLET BY MOUTH ONCE DAILY TAKE ONE TABLET BY MOUTH ONCE DAILY SOLD: 08/16/2021 [facility] 40 mg 05/18/2021 12:00:00 AM EDT tablet 90 TAKE ONE TABLET BY MOUTH ONCE DAILY TAKE ONE TABLET BY MOUTH ONCE DAILY SOLD: 05/19/2021 [facility] 137 mcg 05/13/2021 12:00:00 AM EDT tablet 90 TAKE ONE TABLET BY MOUTH EVERY MORNING ON AN EMPTY STOMACH TAKE ONE TABLET BY MOUTH EVERY MORNING O N AN EMPTY STOMACH SOLD: 05/14/2021 [facility] 137 mcg 05/13/2021 12:00:00 AM EDT tablet 90 TAKE ONE TABLET BY MOUTH EVERY MORNING ON AN EMPTY STOMACH TAKE ONE TABLET BY MOUTH EVERY MORNING O N AN EMPTY STOMACH SOLD: 08/20/2021 [facility] 60 ACTUAT Fluticasone propionate 0.113 M G/ACTUAT / Salmeterol xinafoate 0.014 MG/ACTUAT Dry Powder Inhaler 113-14 mcg/actuation FLUTICASONE PROPION/SALMETEROL 04/17/2021 12:00:00 AM EDT aerosol powdr breath activated 1 INHALE 1 PUFF BY MOUTH TWO TIMES A DAY INHALE 1 PUFF BY MOUTH TWO TIMES A DAY SOLD: 04/17/2021 [facility] Airduo Respiclick 113/14 Airduo Respiclick 113/14 04/17/2021 12:00: 00 AM EDT ORAL active [facility] 60 ACTUAT Fluticasone propionate 0.113 M G/ACTUAT / Salmeterol xinafoate 0.014 MG/ACTUAT Dry Powder Inhaler 113-14 mcg/actuation FLUTICASONE PROPION/SALMETEROL 04/17/2021 12:00:00 AM EDT aerosol powdr breath activated 1 INHALE 1 PUFF BY MOUTH TWO TIMES A DAY INHALE 1 PUFF BY MOUTH TWO TIMES A DAY SOLD: 06/10/2021 [facility] 2.5 mg 03/20/2021 12:00:00 AM EDT tablet 90 TAKE ONE TABLET BY MOUTH ONCE DAILY TAKE ONE TABLET BY MOUTH ONCE DAILY SOLD: 03/21/2021 [facility] 2.5 mg 03/20/2021 12:00:00 AM EDT tablet 90 TAKE ONE TABLET BY MOUTH ONCE DAILY TAKE ONE TABLET BY MOUTH ONCE DAILY SOLD: 06/10/2021 [facility] 250 mg 03/05/2021 12:00:00 AM EDT tablet 6 TAKE TWO TABLETS BY MOUTH ONCE DAILY FOR 1 DAY THEN TAKE ONE TABLET BY MOUTH ONCE DAILY FOR 4 DAYS TAKE TWO TABLETS BY MOUTH ONCE DAILY FOR 1 DAY THEN TAKE ONE TABLET BY MOUTH ONCE DAILY FOR 4 DAYS SOLD: 03/05/2021 [facility] Lisinopril 2.5 MG Oral Tablet lisinopril (ZESTRIL) tab let 2.5 mg lisinopril (ZESTRIL) tablet 2.5 mg 02/20/2021 09:00:00 AM EDT 2.5 mg Oral active 2.5 mg, Oral, Every morning, First dose on Thu02/20/21 at 0900, For 30 days [facility] Medication administered onsite levothyroxine (SYNTHROID) tablet 137 mcg 02/20/2021 09:00: 00 AM EDT 137 ug Oral active 137 mcg, Oral, Every morning, First dose on Thu02/20/21 at 0900, For 30 days [facility] Medication administered onsite Simvastatin 20 MG Oral Tablet simvastatin (ZOCOR) tabl et 40 mg simvastatin (ZOCOR) tablet 40 mg 02/20/2021 09:00:00 AM EDT 40 mg Oral active 40 mg, Oral, Every morning, First dose on Thu02/20/21 at 0900, For 30 days [facility] Medication administered onsite metoprolol (LOPRESSOR) split tablet 12.5 mg [id number] 02/20/2021 09:00:00 AM EDT 12.5 mg Oral active 12.5 mg, Oral, Every morning, First dose on Thu02/20/21 at 0900, For 30 days [facility] Medication administered onsite tiotropium - olodaterol (STIOLTO RESPIMAT) inhalation spray 2 puff [id number] 02/20/2021 09:00:00 AM EDT 2 {puff} Inhalation active 2 puff, Inhalation, Every morning, First dose on Thu02/20/21 at 0900, For 30 days [facility] Medication administered onsite pantoprazole 40 MG Delayed Release Oral Tablet pantoprazole (PROTONIX) EC tablet 40 mg pantoprazole (PROTONIX) EC tablet 40 mg 02/20/2021 09:00:00 AM E DT 40 mg Oral active 40 mg, Ora l, Daily Standard, First dose on Thu02/20/21 at 0900, For 30 days
Do not crush or chew
[facility] Medication administered onsite Acetaminophen 325 MG Oral Tablet Acetaminophen 325 MG Oral Tablet (Tylenol) Acetaminophen 325 MG Oral Tablet (Tylenol) 02/20/2021 12:00:00 AM EDT 650 mg Oral active Take 2 tablets by mo [facility] every 6 (six) hours for 10 days [facility] Docusate Sodium 100 MG Oral Capsule Docu sate Sodium 100 MG Oral Capsule (COLACE) Docusate Sodium 100 MG Oral Capsule (COLACE) 02/20/2021 12:00:00 AM EDT 100 mg Oral active Take 1 capsule by mouth Two Times Daily for 10 days [facility] tramadol hydrochloride 50 MG Oral Tablet traMADol HCl 50 MG Oral Tablet (ULTRAM) traMADol HCl 50 MG Oral Tablet (ULTRAM) 02/20/2021 12:00:00 AM EDT 50 mg Oral active Take 1 tablet by mouth every 6 (six) hours as needed for up to 2 days, Max Daily Dose: 200 mg [facility] 50 mg 02/20/2021 12:00:00 AM EDT tablet 4 TAKE ONE TABLET BY MOUTH EVERY 6 HOURS NEEDED FOR UP TO 2 DAYS, MAXIMUM DAILY DOSE = FOUR TABLETS TAKE ONE TABLET BY MOUTH EVERY 6 HOURS NEEDED FOR UP TO 2 DAYS, MAXIMUM DAILY DOSE = FOUR TABLETS SOLD: 02/20/2021 [facility] 100 mg 02/20/2021 12:00:00 AM EDT capsule 20 TAKE ONE CAPSULE BY MOUTH TWICE A DAY FOR 10 DAYS TAKE ONE CAPSULE BY MOUTH TWICE A DAY FOR 10 DAYS SOLD : 02/20/2021 [facility] Docusate Sodium 100 MG Oral Capsule docusate sodium (C OLACE) capsule 100 mg docusate sodium (COLACE) capsule 100 mg 02/19/2021 09:00:00 PM EDT 100 mg Oral active 100 mg, Oral, 2 Times Daily, First dose on Thu02/19/21 at 2100, For 30 days [facility] Medication administered onsite heparin (porcine) 5000 UNIT/ML injection 5,000 Units [id number] 02/19/2021 05:00:00 PM EDT 5000 U Subcutaneous active 5,000 Units, Subcutaneous, Three Times Daily Standard, First dose on Thu02/19/21 at 1700, For 30 days [facility] Medication administered onsite NaCl infusion 0.9 % [id number] 02/19/2021 01:15:00 PM EDT Intravenous aborted at 100 mL/hr, Intrav enous, Continuous, Starting on Thu02/19/21 at 1315, For 30 days [facility] Medication administered onsite Acetaminophen 325 MG Oral Tablet acetaminophen (TYLENO L) tablet 650 mg acetaminophen (TYLENOL) tablet 650 mg 02/19/2021 01:15:00 PM EDT 65 0 mg Oral active 650 mg, Oral, E very 6 hours, First dose on Thu02/19/21 at 1315, For 30 days
Maximum daily dose of acetaminophen is 3,000 mg from all sources in 24 hours.
[facility] Medication administered onsite tramadol hydrochloride 50 MG Oral Tablet tramadol (ULT JEREMY) tablet 50 mg tramadol (ULTRAM) tablet 50 mg 02/19/2021 01:06:10 PM EDT 50 mg Oral active 50 mg, Oral, Every 6 hours PRN, Moderate Pain (Pain Scale Score 4-6), Starting on Thu02/19/21 at 1306, For 3 days [facility] Medication administered onsite ondansetron (ZOFRAN) injection 4 mg [id number] 02/19/2021 01:02:4 8 PM EDT 4 mg Intravenous active 4 mg, In travenous, Every 8 hours PRN, Nausea, Starting on Thu02/19/21 at 1302, For 5 days [facility] Medication administered onsite albuterol (PROVENTIL HFA) inhaler 2 puff [id number] 02/19/2021 12:55:42 PM EDT 2 {puff} Inhalation active 2 pu ff, Inhalation, Every 4 hours PRN, Wheezing, Shortness of Breath, Starting on Thu02/19/21 at 1255, For 4 days
Shake the inhaler well before each spray.
[facility] Medication administered onsite Albuterol Sulfate HFA 108 (90 Base) MCG/ ACT Inhalation Aerosol Solution (PROVENTIL HFA) [id number] 01/08/2021 12:00:00 AM EDT 2 {puff} Inha lation active Inhale 2 puffs into the lung s every 4 (four) hours as needed [facility] 81 mg 12/27/2020 12:00:00 AM EDT tablet,delayed release (DR/EC) 30 TAKE ONE TABLET BY MOUTH ONCE A DAY DIRECTED TAKE ONE TABLET BY MOUTH ONCE A DAY DIRECTED SOLD: 12/27/2020 [facility] 81 mg 12/27/2020 12:00:00 AM EDT tablet,delayed release (DR/EC) 30 TAKE ONE TABLET BY MOUTH ONCE A DAY DIRECTED TAKE ONE TABLET BY MOUTH ONCE A DAY DIRECTED SOLD: 04/10/2021 [facility] 81 mg 12/27/2020 12:00:00 AM EDT tablet,delayed release (DR/EC) 30 TAKE ONE TABLET BY MOUTH ONCE A DAY DIRECTED TAKE ONE TABLET BY MOUTH ONCE A DAY DIRECTED SOLD: 03/04/2021 [facility] 81 mg 12/27/2020 12:00:00 AM EDT tablet,delayed release (DR/EC) 30 TAKE ONE TABLET BY MOUTH ONCE A DAY DIRECTED TAKE ONE TABLET BY MOUTH ONCE A DAY DIRECTED SOLD: 01/29/2021 [facility] 100 unit/mL 12/15/2020 12:00:00 AM EDT solution 20 USE DIRECTED WITH PUMP, MAXIMUM DAILY DOSE = 80 UNITS USE DIRECTED WITH PUMP, MAXIMUM DAILY DOSE = 80 UNITS SOLD: 01/08/2021 [facility] 100 unit/mL 12/15/2020 12:00:00 AM EDT solution 20 USE DIRECTED WITH PUMP, MAXIMUM DAILY DOSE = 80 UNITS USE DIRECTED WITH PUMP, MAXIMUM DAILY DOSE = 80 UNITS SOLD: 02/05/2021 [facility] 100 unit/mL 12/15/2020 12:00:00 AM EDT solution 20 USE DIRECTED WITH PUMP, MAXIMUM DAILY DOSE = 80 UNITS USE DIRECTED WITH PUMP, MAXIMUM DAILY DOSE = 80 UNITS SOLD: 03/19/2021 [facility] 100 unit/mL 12/15/2020 12:00:00 AM EDT solution 20 USE DIRECTED WITH PUMP, MAXIMUM DAILY DOSE = 80 UNITS USE DIRECTED WITH PUMP, MAXIMUM DAILY DOSE = 80 UNITS SOLD: 04/15/2021 [facility] 100 unit/mL 12/15/2020 12:00:00 AM EDT solution 20 USE DIRECTED WITH PUMP, MAXIMUM DAILY DOSE = 80 UNITS USE DIRECTED WITH PUMP, MAXIMUM DAILY DOSE = 80 UNITS SOLD: 06/10/2021 [facility] 100 unit/mL 12/15/2020 12:00:00 AM EDT solution 20 USE DIRECTED WITH PUMP, MAXIMUM DAILY DOSE = 80 UNITS USE DIRECTED WITH PUMP, MAXIMUM DAILY DOSE = 80 UNITS SOLD: 12/15/2020 [facility] 2.5-2.5 mcg/actuation 12/14/2020 12:00:00 AM EDT mist 4 INHALE TWO PUFFS BY MOUTH EVERY DAY INHALE TWO PUFFS BY MOUTH EVERY DAY SOLD: 12/14/2020 [facility] 2.5 mg 12/14/2020 12:00:00 AM EDT tablet 30 TAKE ONE TABLET BY MOUTH EVERY DAY TAKE ONE TABLET BY MOUTH EVERY DAY SOLD: 12/14/2020 [facility] 60 ACTUAT olodaterol 0.0025 MG/ACTUAT / tiotropium 0.0025 MG/ACTUAT Metered Dose Inhaler [Stiolto] 2.5-2.5 mcg/actuation TIOTROPIUM BR/OLODATEROL HCL 12/14/2020 12:00:00 AM EDT mist 4 INHALE TWO PUFFS BY MOUT H EVERY DAY INHALE TWO PUFFS BY MOUTH EVERY DAY SOLD: 03/21/2021 [facility] 60 ACTUAT olodaterol 0.0025 MG/ACTUAT / tiotropium 0.0025 MG/ACTUAT Metered Dose Inhaler [Stiolto] 2.5-2.5 mcg/actuation TIOTROPIUM BR/OLODATEROL HCL 12/14/2020 12:00:00 AM EDT mist 4 INHALE TWO PUFFS BY MOUT H EVERY DAY INHALE TWO PUFFS BY MOUTH EVERY DAY SOLD: 02/05/2021 [facility] 2.5 mg 12/14/2020 12:00:00 AM EDT tablet 30 TAKE ONE TABLET BY MOUTH EVERY DAY TAKE ONE TABLET BY MOUTH EVERY DAY SOLD: 02/05/2021 [facility] 90 mcg/actuation 12/12/2020 12:00:00 AM EDT HFA aerosol inha ler 18 INHALE 2 PUFFS BY MOUTH EVERY 4 HOURS INHALE 2 PUFFS BY MOUTH EVERY 4 HOURS SOLD: 01/08/2021 [facility] 90 mcg/actuation 12/12/2020 12:00:00 AM EDT HFA aerosol inha ler 18 INHALE 2 PUFFS BY MOUTH EVERY 4 HOURS INHALE 2 PUFFS BY MOUTH EVERY 4 HOURS SOLD: 12/13/2020 [facility] 90 mcg/actuation 12/12/2020 12:00:00 AM EDT HFA aerosol inha ler 18 INHALE 2 PUFFS BY MOUTH EVERY 4 HOURS INHALE 2 PUFFS BY MOUTH EVERY 4 HOURS SOLD: 06/10/2021 [facility] 500 mg 12/12/2020 12:00:00 AM EDT tablet 20 TAKE ONE TABLET BY MOUTH EVERY 12 HOURS FOR 10 DAYS TAKE ONE TABLET BY MOUTH EVERY 12 HOURS FOR 10 DAYS SO LD: 12/13/2020 [facility] 90 mcg/actuation 12/12/2020 12:00:00 AM EDT HFA aerosol inha ler 18 INHALE 2 PUFFS BY MOUTH EVERY 4 HOURS INHALE 2 PUFFS BY MOUTH EVERY 4 HOURS SOLD: 04/15/2021 [facility] 90 mcg/actuation 12/12/2020 12:00:00 AM EDT HFA aerosol inha ler 18 INHALE 2 PUFFS BY MOUTH EVERY 4 HOURS INHALE 2 PUFFS BY MOUTH EVERY 4 HOURS SOLD: 02/05/2021 [facility] 90 mcg/actuation 12/12/2020 12:00:00 AM EDT HFA aerosol inha ler 18 INHALE 2 PUFFS BY MOUTH EVERY 4 HOURS INHALE 2 PUFFS BY MOUTH EVERY 4 HOURS SOLD: 03/21/2021 [facility] 2 mg 11/14/2020 12:00:00 AM EST tablet 30 TAKE ONE-HALF TABLET BY MOUTH TWO TIMES A DAY TAKE ONE-HALF TABLET BY MOUTH TWO TIMES A DAY SOLD: 01/08/2021 [facility] 2 mg 11/14/2020 12:00:00 AM EST tablet 30 TAKE ONE-HALF TABLET BY MOUTH TWO TIMES A DAY TAKE ONE-HALF TABLET BY MOUTH TWO TIMES A DAY SOLD: 12/10/2020 [facility] Estradiol 2 MG Oral Tablet estradiol 2 mg tablet estradiol 2 mg tablet 11/14/2020 12:00:00 AM EST active take 0.5 tablet by oral route BID [facility] ([facility]) 2 mg 11/14/2020 12:00:00 AM EST tablet 30 TAKE ONE-HALF TABLET BY MOUTH TWO TIMES A DAY TAKE ONE-HALF TABLET BY MOUTH TWO TIMES A DAY SOLD: 11/14/2020 [facility] 2 mg 11/14/2020 12:00:00 AM EST tablet 30 TAKE ONE-HALF TABLET BY MOUTH TWO TIMES A DAY TAKE ONE-HALF TABLET BY MOUTH TWO TIMES A DAY SOLD: 04/15/2021 [facility] 2 mg 11/14/2020 12:00:00 AM EST tablet 30 TAKE ONE-HALF TABLET BY MOUTH TWO TIMES A DAY TAKE ONE-HALF TABLET BY MOUTH TWO TIMES A DAY SOLD: 02/05/2021 [facility] 2 mg 11/14/2020 12:00:00 AM EST tablet 30 TAKE ONE-HALF TABLET BY MOUTH TWO TIMES A DAY TAKE ONE-HALF TABLET BY MOUTH TWO TIMES A DAY SOLD: 03/21/2021 [facility] 2.5 mg 11/12/2020 12:00:00 AM EST tablet 30 TAKE ONE TABLET BY MOUTH EVERY DAY TAKE ONE TABLET BY MOUTH EVERY DAY SOLD: 11/14/2020 [facility] 40 mg 11/08/2020 12:00:00 AM EST tablet 30 TAKE ONE TABLET BY MOUTH ONCE DAILY TAKE ONE TABLET BY MOUTH ONCE DAILY SOLD: 04/15/2021 [facility] 40 mg 11/08/2020 12:00:00 AM EST capsule,delayed release (DR/EC) 30 TAKE ONE CAPSULE BY MOUTH EVERY DAY TAKE ONE CAPSULE BY MOUTH EVERY DAY SOLD: 12/10/2020 [facility] 25 mg 11/08/2020 12:00:00 AM EST tablet 30 TAKE ONE TABLET BY MOUTH ONCE DAILY TAKE ONE TABLET BY MOUTH ONCE DAILY SOLD: 12/10/2020 [facility] 40 mg 11/08/2020 12:00:00 AM EST capsule,delayed release (DR/EC) 30 TAKE ONE CAPSULE BY MOUTH EVERY DAY TAKE ONE CAPSULE BY MOUTH EVERY DAY SOLD: 01/08/2021 [facility] 40 mg 11/08/2020 12:00:00 AM EST tablet 30 TAKE ONE TABLET BY MOUTH ONCE DAILY TAKE ONE TABLET BY MOUTH ONCE DAILY SOLD: 03/19/2021 [facility] 25 mg 11/08/2020 12:00:00 AM EST tablet 30 TAKE ONE TABLET BY MOUTH ONCE DAILY TAKE ONE TABLET BY MOUTH ONCE DAILY SOLD: 11/09/2020 [facility] 40 mg 11/08/2020 12:00:00 AM EST tablet 30 TAKE ONE TABLET BY MOUTH ONCE DAILY TAKE ONE TABLET BY MOUTH ONCE DAILY SOLD: 02/05/2021 [facility] 25 mg 11/08/2020 12:00:00 AM EST tablet 30 TAKE ONE TABLET BY MOUTH ONCE DAILY TAKE ONE TABLET BY MOUTH ONCE DAILY SOLD: 01/08/2021 [facility] 40 mg 11/08/2020 12:00:00 AM EST capsule,delayed release (DR/EC) 30 TAKE ONE CAPSULE BY MOUTH EVERY DAY TAKE ONE CAPSULE BY MOUTH EVERY DAY SOLD: 11/09/2020 [facility] 40 mg 11/08/2020 12:00:00 AM EST tablet 30 TAKE ONE TABLET BY MOUTH ONCE DAILY TAKE ONE TABLET BY MOUTH ONCE DAILY SOLD: 01/08/2021 [facility] 40 mg 11/08/2020 12:00:00 AM EST capsule,delayed release (DR/EC) 30 TAKE ONE CAPSULE BY MOUTH EVERY DAY TAKE ONE CAPSULE BY MOUTH EVERY DAY SOLD: 04/10/2021 [facility] 25 mg 11/08/2020 12:00:00 AM EST tablet 30 TAKE ONE TABLET BY MOUTH ONCE DAILY TAKE ONE TABLET BY MOUTH ONCE DAILY SOLD: 03/21/2021 [facility] 40 mg 11/08/2020 12:00:00 AM EST tablet 30 TAKE ONE TABLET BY MOUTH ONCE DAILY TAKE ONE TABLET BY MOUTH ONCE DAILY SOLD: 12/10/2020 [facility] 40 mg 11/08/2020 12:00:00 AM EST tablet 30 TAKE ONE TABLET BY MOUTH ONCE DAILY TAKE ONE TABLET BY MOUTH ONCE DAILY SOLD: 11/09/2020 [facility] 25 mg 11/08/2020 12:00:00 AM EST tablet 30 TAKE ONE TABLET BY MOUTH ONCE DAILY TAKE ONE TABLET BY MOUTH ONCE DAILY SOLD: 02/05/2021 [facility] 40 mg 11/08/2020 12:00:00 AM EST capsule,delayed release (DR/EC) 30 TAKE ONE CAPSULE BY MOUTH EVERY DAY TAKE ONE CAPSULE BY MOUTH EVERY DAY SOLD: 02/05/2021 [facility] 40 mg 11/08/2020 12:00:00 AM EST capsule,delayed release (DR/EC) 30 TAKE ONE CAPSULE BY MOUTH EVERY DAY TAKE ONE CAPSULE BY MOUTH EVERY DAY SOLD: 03/04/2021 [facility] 90 mcg/actuation 11/08/2020 12:00:00 AM EST HFA aerosol inha ler 6 INHALE 2 PUFFS BY MOUTH FOUR TIMES A DAY NEEDED INHALE 2 PUFFS BY MOUTH FOUR TIMES A DAY NEEDED SOLD: 11/09/2020 [facility] 137 mcg 11/06/2020 12:00:00 AM EST tablet 30 TAKE ONE TABLET BY MOUTH EVERY DAY TAKE ONE TABLET BY MOUTH EVERY DAY SOLD: 03/21/2021 [facility] 137 mcg 11/06/2020 12:00:00 AM EST tablet 30 TAKE ONE TABLET BY MOUTH EVERY DAY TAKE ONE TABLET BY MOUTH EVERY DAY SOLD: 02/05/2021 [facility] 137 mcg 11/06/2020 12:00:00 AM EST tablet 30 TAKE ONE TABLET BY MOUTH EVERY DAY TAKE ONE TABLET BY MOUTH EVERY DAY SOLD: 04/15/2021 [facility] 137 mcg 11/06/2020 12:00:00 AM EST tablet 30 TAKE ONE TABLET BY MOUTH EVERY DAY TAKE ONE TABLET BY MOUTH EVERY DAY SOLD: 12/10/2020 [facility] 137 mcg 11/06/2020 12:00:00 AM EST tablet 30 TAKE ONE TABLET BY MOUTH EVERY DAY TAKE ONE TABLET BY MOUTH EVERY DAY SOLD: 11/07/2020 [facility] 137 mcg 11/06/2020 12:00:00 AM EST tablet 30 TAKE ONE TABLET BY MOUTH EVERY DAY TAKE ONE TABLET BY MOUTH EVERY DAY SOLD: 01/08/2021 [facility] 12 % 11/02/2020 12:00:00 AM EST cream 280 APPLY TO FEET DAILY APPLY TO FEET DAILY SOLD: 11/06/2020 [facility] 2 mg 10/29/2020 12:00:00 AM EST tablet 15 TAKE ONE-HALF TABLET BY MOUTH EVERY DAY TAKE ONE-HALF TABLET BY MOUTH EVERY DAY SOLD: 10/29/2020 [facility] Estradiol 2 MG Oral Tablet estradiol 2 mg tablet estradiol 2 mg tablet 10/12/2020 12:00:00 AM EST completed take 0.5 tablet by oral route every day [facility] ([facility]) 20 mg 10/11/2020 12:00:00 AM EST tablet 8 TAKE ONE TABLET BY MOUTH TWO TIMES A DAY FOR 4 DAYS TAKE ONE TABLET BY MOUTH TWO TIMES A DAY FOR 4 DAYS SO LD: 10/11/2020 [facility] Doxycycline Monohydrate 100 MG Oral Tablet Doxycycline Monoh ydrate 10/11/2020 12:00:00 AM EST ORAL active M [facility] ([facility]) Prednisone 20 MG Oral Tablet Prednisone 10/11/2020 12:00:00 AM EST ORAL active [facility] ([facility]) doxycycline hyclate 100 MG Oral Capsule DOXYCYCLINE HYCLATE 10/11/2020 12:00:00 AM EST capsule 20 TAKE ONE CAPSULE BY MOUTH TW ICE A DAY FOR 10 DAYS TAKE ONE CAPSULE BY MOUTH TWICE A DAY FOR 10 DAYS SOLD: 10/11/2020 [facility] 100 unit/mL 09/10/2020 12:00:00 AM EST solution 60 USE DIRECTED WITH PUMP, MAXIMUM DAILY DOSE = 80 UNITS USE DIRECTED WITH PUMP, MAXIMUM DAILY DOSE = 80 UNITS SOLD: 09/10/2020 [facility] 137 mcg 09/08/2020 12:00:00 AM EST tablet 30 TAKE ONE TABLET BY MOUTH EVERY DAY TAKE ONE TABLET BY MOUTH EVERY DAY SOLD: 09/08/2020 [facility] 137 mcg 09/08/2020 12:00:00 AM EST [...] BEFORE SWALLOWING SOLD: 09/08/2020 [facility] 2 mg 07/14/2020 12:00:00 AM EDT tablet 60 TAKE ONE TABLET BY MOUTH EVERY DAY, ALLOW TO DISSOLVE UNDER THE TONGUE FOR 30 MINUTES BEFORE SWALLOWING TAKE ONE TABLET BY MOUTH EVERY DAY, ALLOW TO DISSOLVE UNDER THE TONGUE FOR 30 MINUTES BEFORE SWALLOWING SOLD: 07/14/2020 [facility] Estradiol 2 MG Oral Tablet estradiol 2 mg tablet estradiol 2 mg tablet 07/13/2020 12:00:00 AM EDT active take 1 tablet by po daily. Allow to dissolve under the tongue x 30 min before swallowing[facility] Estradiol 2 MG Oral Tablet estradiol 2 mg tablet estradiol 2 mg tablet 07/13/2020 12:00:00 AM EDT completed take 1 tablet by po daily. Allow to dissolve under the tongue x 30 min before swallowing. [facility] 137 mcg 06/22/2020 12:00:00 AM EDT tablet 30 TAKE ONE TABLET BY MOUTH EVERY DAY TAKE ONE TABLET BY MOUTH EVERY DAY SOLD: 08/13/2020 [facility] 137 mcg 06/22/2020 12:00:00 AM EDT tablet 30 TAKE ONE TABLET BY MOUTH EVERY DAY TAKE ONE TABLET BY MOUTH EVERY DAY SOLD: 07/17/2020 [facility] liothyronine sodium 0.025 MG Oral Tablet Liothyronine Sodium 06/20/2020 12:00:00 AM EDT ORAL [facility] BLOOD SUGAR DIAGNOSTIC 06/11/2020 12:00:00 AM EDT strip 100 USE DIRECTED FOUR TIMES A DAY USE DIRECTED FOUR TIMES A DAY SOLD: 09/08/2020 [facility] 81 mg 06/11/2020 12:00:00 AM EDT tablet,delayed release (DR/EC) 30 TAKE ONE TABLET BY MOUTH EVERY DAY TAKE ONE TABLET BY MOUTH EVERY DAY SOLD: 08/13/2020 [facility] 81 mg 06/11/2020 12:00:00 AM EDT tablet,delayed release (DR/EC) 30 TAKE ONE TABLET BY MOUTH EVERY DAY TAKE ONE TABLET BY MOUTH EVERY DAY SOLD: 07/10/2020 [facility] BLOOD SUGAR DIAGNOSTIC 06/11/2020 12:00:00 AM EDT strip 100 USE DIRECTED FOUR TIMES A DAY USE DIRECTED FOUR TIMES A DAY SOLD: 07/10/2020 [facility] 81 mg 06/11/2020 12:00:00 AM EDT tablet,delayed release (DR/EC) 30 TAKE ONE TABLET BY MOUTH EVERY DAY TAKE ONE TABLET BY MOUTH EVERY DAY SOLD: 09/08/2020 [facility] BLOOD SUGAR DIAGNOSTIC 06/11/2020 12:00:00 AM EDT strip 100 USE DIRECTED FOUR TIMES A DAY USE DIRECTED FOUR TIMES A DAY SOLD: 10/08/2020 [facility] 81 mg 06/11/2020 12:00:00 AM EDT tablet,delayed release (DR/EC) 30 TAKE ONE TABLET BY MOUTH EVERY DAY TAKE ONE TABLET BY MOUTH EVERY DAY SOLD: 10/08/2020 [facility] 81 mg 06/11/2020 12:00:00 AM EDT tablet,delayed release (DR/EC) 30 TAKE ONE TABLET BY MOUTH EVERY DAY TAKE ONE TABLET BY MOUTH EVERY DAY SOLD: 11/06/2020 [facility] Progesterone 100 MG Oral Capsule [Prometrium] Prometri um 100 mg capsule Prometrium 100 mg capsule 05/21/2020 12:00:00 AM EDT 1 {capsule} ORAL active progesterone 100 MG Oral Capsule [Prometrium] [facility] ([facility]) 40 mg 05/15/2020 12:00:00 AM EDT capsule,delayed [...] MOUTH ONCE DAILY SOLD: 07/10/2020 [facility] 40 mg 05/15/2020 [...] MOUTH EVERY DAY SOLD: 07/10/2020 [facility] 25 mg 05/15/2020 12:00:00 AM EDT tablet 15 TAKE 1/2 TABLET BY MOUTH ONCE DAILY TAKE 1/2 TABLET BY MOUTH ONCE DAILY SOLD: 09/08/2020 [facility] 40 mg 05/15/2020 [...] MOUTH EVERY DAY SOLD: 10/08/2020 [facility] 2.5 mg 05/15/2020 12:00:00 AM EDT tablet 30 TAKE ONE TABLET BY MOUTH EVERY DAY TAKE ONE TABLET BY MOUTH EVERY DAY SOLD: 10/08/2020 [facility] 2.5 mg 05/15/2020 12:00:00 AM EDT tablet 30 TAKE ONE TABLET BY MOUTH EVERY DAY TAKE ONE TABLET BY MOUTH EVERY DAY SOLD: 07/10/2020 [facility] 40 mg 05/15/2020 12:00:00 AM EDT capsule,delayed release (DR/EC) 30 TAKE ONE CAPSULE BY MOUTH EVERY DAY TAKE ONE CAPSULE BY MOUTH EVERY DAY SOLD: 10/08/2020 [facility] 2.5 mg 05/15/2020 12:00:00 AM EDT tablet 30 TAKE ONE TABLET BY MOUTH EVERY DAY TAKE ONE TABLET BY MOUTH EVERY DAY SOLD: 09/08/2020 [facility] Finasteride 5 MG Oral Tablet finasteride 5 mg tablet finaste ride 5 mg tablet 04/23/2020 12:00:00 AM EDT 1.00 {tablet} ORAL complet ed take 1 tablet by oral route every day [facility] ([facility]) tramadol hydrochloride 50 MG Oral Tablet tramadol 50 mg tablet TAKE ONE TABLET BY MOUTH EVERY 6 HOURS NEEDED FOR UP TO 2 DAYS MAXIMUM DAILY DOSE FOUR TABLETS tramadol 50 mg tablet TAKE ONE TABLET BY MOUTH EVERY 6 HOURS NEEDED FOR UP TO 2 DAYS MAXIMUM DAILY DOSE FOUR TABLETS completed tramadol hydrochloride 50 MG Oral Tablet [facility] ([facility]) Prednisone 20 MG Oral Tablet prednisone 20 mg tablet TAKE ONE TABLET BY MOUTH TWO TIMES A DAY FOR 4 DAYS prednisone 20 mg tablet TAKE ONE TABLET BY MOUTH TWO TIMES A DAY FOR 4 DAYS completed prednisone 20 MG Oral Tablet [facility] ([facility]) doxycycline hyclate 100 MG Oral Capsule doxycycline hyclate 100 mg capsule TAKE ONE CAPSULE BY MOUTH TWICE A DAY FOR 10 DAYS doxycycline hyclate 100 mg capsule TAKE ONE CAPSULE BY MOUTH TWICE A DAY FOR 10 DAYS completed doxycycline hyclate 100 MG Oral Capsule [facility] ([facility]) Finasteride 5 MG Oral Tablet finasteride 5 mg tablet finasteride 5 mg tablet completed finasteride 5 MG Oral Tablet [facility] ([facility]) doxycycline hyclate 100 MG Oral Capsule doxycycline hyclate 100 mg capsule TAKE ONE CAPSULE BY MOUTH TWICE A DAY FOR 10 DAYS doxycycline hyclate 100 mg capsule TAKE ONE CAPSULE BY MOUTH TWICE A DAY FOR 10 DAYS completed doxycycline hyclate 100 MG Oral Capsule [facility] ([facility]) 1 ML Leuprolide Acetate 3.75 MG/ML Prefi lled Syringe [Lupron] Lupron Depot 3.75 mg intramuscular syringe kit INJECT 3.75MG MONTHLY Lupron Depot 3.75 mg intramuscular syringe kit INJECT 3.75MG MONTHLY completed 1 ML leuprolide acetate 3.75 MG/ML Prefilled Syringe [Lupron] [facility] ([facility]) Finasteride 5 MG Oral Tablet finasteride 5 mg tablet finasteride 5 mg tablet completed finasteride 5 MG Oral Tablet [facility] ([facility]) Levothyroxine Sodium 0.025 MG Oral Table t [Levo-T] Levo-T 25 mcg tablet Take 1 tablet every day by oral route. Levo-T 25 mcg tablet Take 1 tablet every day by oral route. 1 completed le vothyroxine sodium 0.025 MG Oral Tablet [Levo-T] [facility] ([facility]) Finasteride 5 MG Oral Tablet finasteride 5 mg tablet finasteride 5 mg tablet completed finasteride 5 MG Oral Tablet [facility] ([facility]) Clarithromycin 500 MG Oral Tablet clarit hromycin 500 mg tablet TAKE ONE TABLET BY MOUTH EVERY 12 HOURS FOR 10 DAYS clarithromycin 500 mg tablet TAKE ONE TA BLET BY MOUTH EVERY 12 HOURS FOR 10 DAYS c ompleted clarithromycin 500 MG Oral Tablet [facility] ([facility]) doxycycline hyclate 100 MG Oral Capsule doxycycline hyclate 100 mg capsule TAKE ONE CAPSULE BY MOUTH TWICE A DAY FOR 10 DAYS doxycycline hyclate 100 mg capsule TAKE ONE CAPSULE BY MOUTH TWICE A DAY FOR 10 DAYS completed doxycycline hyclate 100 MG Oral Capsule [facility] ([facility]) Progesterone 100 MG Oral Capsule progesterone microniz ed 100 mg capsule progesterone micronized 100 mg capsule completed progesterone 100 MG Oral Capsule [facility] ([facility]) ammonium lactate 120 MG/ML Topical Cream ammonium lactate 12 % topical cream APPLY TO FEET DAILY ammonium lactate 12 % topical cream APPLY TO FEET DAILY completed ammonium lactate 120 M G/ML Topical Cream [facility] ([facility]) Clarithromycin 500 MG Oral Tablet clarit hromycin 500 mg tablet TAKE ONE TABLET BY MOUTH EVERY 12 HOURS FOR 10 DAYS clarithromycin 500 mg tablet TAKE ONE TA BLET BY MOUTH EVERY 12 HOURS FOR 10 DAYS c ompleted clarithromycin 500 MG Oral Tablet [facility] ([facility]) Prednisone 20 MG Oral Tablet prednisone 20 mg tablet TAKE ONE TABLET BY MOUTH TWO TIMES A DAY FOR 4 DAYS prednisone 20 mg tablet TAKE ONE TABLET BY MOUTH TWO TIMES A DAY FOR 4 DAYS completed prednisone 20 MG Oral Tablet [facility] ([facility]) Progesterone 100 MG Oral Capsule progesterone microniz ed 100 mg capsule progesterone micronized 100 mg capsule 2.00 {capsule} ORAL completed take 2 capsule by oral route every day for 12 days in the evening sequentially per 28 day cycle [facility] ([facility]) Clarithromycin 500 MG Oral Tablet clarit hromycin 500 mg tablet TAKE ONE TABLET BY MOUTH EVERY 12 HOURS FOR 10 DAYS clarithromycin 500 mg tablet TAKE ONE TA BLET BY MOUTH EVERY 12 HOURS FOR 10 DAYS c ompleted clarithromycin 500 MG Oral Tablet [facility] ([facility]) Azithromycin 250 MG Oral Tablet azithrom ycin 250 mg tablet TAKE TWO TABLETS BY MOUTH ONCE DAILY FOR 1 DAY THEN TAKE ONE TABLET BY MOUTH ONCE DAILY FOR 4 DAYS azithromycin 250 mg tablet TAKE TWO TABLETS BY MOUTH ONCE DAILY FOR 1 DAY THEN TAKE ONE TABLET BY MOUTH ONCE DAILY FOR 4 DAYS completed azithromycin 250 MG Oral Tablet [facility] ([facility]) ammonium lactate 120 MG/ML Topical Cream ammonium lactate 12 % topical cream APPLY TO FEET DAILY ammonium lactate 12 % topical cream APPLY TO FEET DAILY completed ammonium lactate 120 M G/ML Topical Cream [facility] ([facility]) liothyronine sodium 0.025 MG Oral Tablet liothyronine 25 mcg tablet liothyronine 25 mcg tablet completed liothyronine sodium 0.025 MG Oral Tablet [facility] ([facility]) Levothyroxine Sodium 0.025 MG Oral Table t [Levo-T] Levo-T 25 mcg tablet Take 1 tablet every day by oral route. Levo-T 25 mcg tablet Take 1 tablet every day by oral route. 1 completed le vothyroxine sodium 0.025 MG Oral Tablet [Levo-T] [facility] ([facility]) Estradiol 2 MG Oral Tablet estradiol 2 mg tablet estradiol 2 mg tab let 1 {tablet} ORAL completed take 1 tablet by oral route every day [facility] ([facility] Progesterone 100 MG Oral Capsule progesterone microniz ed 100 mg capsule progesterone micronized 100 mg capsule completed progesterone 100 MG Oral Capsule [facility] ([facility]) Finasteride 5 MG Oral Tablet finasteride 5 mg tablet finasteride 5 mg tablet 0.5 {tablet} ORAL completed take 0.5 tablet by oral route every day [facility] ([facility] Levothyroxine Sodium 0.025 MG Oral Table t [Levo-T] Levo-T 25 mcg tablet Take 1 tablet every day by oral route. Levo-T 25 mcg tablet Take 1 tablet every day by oral route. 1 completed le vothyroxine sodium 0.025 MG Oral Tablet [Levo-T] [facility] ([facility]) OneTouch Ultra Blue Test Strip USE DIRECTED FOUR TIMES A DAY [id number] completed OneTouch Ultra Blue Test Strip [facility] ([facility]) olodaterol 0.0025 MG/ACTUAT / tiotropium 0.0025 MG/ACTUAT Metered Dose Inhaler Stiolto Respimat 2.5 mcg-2.5 mcg/actuation solution for inhalation INHALE TWO PUFFS BY MOUTH EVERY DAY Stiolto Respimat 2.5 mcg-2.5 mcg/actuati on solution for inhalation INHALE TWO PUFFS BY MOUTH EVERY DAY completed olodaterol 0.0025 MG/ACTUAT / tiotropium 0.0025 MG/ACTUAT Inhalation [facility] ([facility]) Prednisone 20 MG Oral Tablet prednisone 20 mg tablet TAKE ONE TABLET BY MOUTH TWO TIMES A DAY FOR 4 DAYS prednisone 20 mg tablet TAKE ONE TABLET BY MOUTH TWO TIMES A DAY FOR 4 DAYS completed prednisone 20 MG Oral Tablet [facility]) Prednisone 20 MG Oral Tablet prednisone 20 mg tablet TAKE ONE TABLET BY MOUTH TWO TIMES A DAY FOR 4 DAYS prednisone 20 mg tablet TAKE ONE TABLET BY MOUTH TWO TIMES A DAY FOR 4 DAYS completed prednisone 20 MG Oral Tablet [facility]) tramadol hydrochloride 50 MG Oral Tablet tramadol 50 mg tablet TAKE ONE TABLET BY MOUTH EVERY 6 HOURS NEEDED FOR UP TO 2 DAYS MAXIMUM DAILY DOSE FOUR TABLETS tramadol 50 mg tablet TAKE ONE TABLET BY MOUTH EVERY 6 HOURS NEEDED FOR UP TO 2 DAYS MAXIMUM DAILY DOSE FOUR TABLETS completed tramadol hydrochloride 50 MG Oral Tablet [facility]) Prednisone 20 MG Oral Tablet prednisone 20 mg tablet TAKE ONE TABLET BY MOUTH TWO TIMES A DAY FOR 4 DAYS prednisone 20 mg tablet TAKE ONE TABLET BY MOUTH TWO TIMES A DAY FOR 4 DAYS completed prednisone 20 MG Oral Tablet [facility] ([facility]) Lisinopril 2.5 MG Oral Tablet lisinopril 2.5 mg tablet TAKE ONE TABLET BY MOUTH ONCE DAILY lisinopril 2.5 mg tablet TAKE ONE TABLET BY MOUTH ONCE DAILY completed lisinopril 2.5 MG Oral Ta blet [facility]) Finasteride 5 MG Oral Tablet finasteride 5 mg tablet finasteride 5 mg tablet completed finasteride 5 MG Oral Tablet [facility] ([facility]) Levothyroxine Sodium 0.025 MG Oral Table t [Levo-T] Levo-T 25 mcg tablet Take 1 tablet every day by oral route. Levo-T 25 mcg tablet Take 1 tablet every day by oral route. 1 completed le vothyroxine sodium 0.025 MG Oral Tablet [Levo-T] [facility] ([facility]) Prednisone 20 MG Oral Tablet prednisone 20 mg tablet TAKE ONE TABLET BY MOUTH TWO TIMES A DAY FOR 4 DAYS prednisone 20 mg tablet TAKE ONE TABLET BY MOUTH TWO TIMES A DAY FOR 4 DAYS completed prednisone 20 MG Oral Tablet [facility] ([facility]) Clarithromycin 500 MG Oral Tablet clarit hromycin 500 mg tablet TAKE ONE TABLET BY MOUTH EVERY 12 HOURS FOR 10 DAYS clarithromycin 500 mg tablet TAKE ONE TA BLET BY MOUTH EVERY 12 HOURS FOR 10 DAYS c ompleted clarithromycin 500 MG Oral Tablet [facility] ([facility]) Finasteride 5 MG Oral Tablet finasteride 5 mg tablet finasteride 5 mg tablet completed finasteride 5 MG Oral Tablet [facility] ([facility]) Docusate Sodium 100 MG Oral Capsule docu sate sodium 100 mg capsule TAKE ONE CAPSULE BY MOUTH TWICE A DAY FOR 10 DAYS docusate sodium 100 mg capsule TAKE ONE CAPSULE BY MOUTH TWICE A DAY FOR 10 DAYS completed docusate sodium 100 MG Oral Capsule [facility] ([facility]) doxycycline hyclate 100 MG Oral Capsule doxycycline hyclate 100 mg capsule TAKE ONE CAPSULE BY MOUTH TWICE A DAY FOR 10 DAYS doxycycline hyclate 100 mg capsule TAKE ONE CAPSULE BY MOUTH TWICE A DAY FOR 10 DAYS completed doxycycline hyclate 100 MG Oral Capsule [facility] ([facility]) Prednisone 20 MG Oral Tablet prednisone 20 mg tablet TAKE ONE TABLET BY MOUTH TWO TIMES A DAY FOR 4 DAYS prednisone 20 mg tablet TAKE ONE TABLET BY MOUTH TWO TIMES A DAY FOR 4 DAYS completed prednisone 20 MG Oral Tablet [facility] ([facility]) liothyronine sodium 0.025 MG Oral Tablet liothyronine 25 mcg tablet liothyronine 25 mcg tablet completed liothyronine sodium 0.025 MG Oral Tablet [facility] ([facility]) Progesterone 100 MG Oral Capsule progesterone microniz ed 100 mg capsule progesterone micronized 100 mg capsule completed progesterone 100 MG Oral Capsule [facility] ([facility]) Progesterone 100 MG Oral Capsule progesterone microniz ed 100 mg capsule progesterone micronized 100 mg capsule completed progesterone 100 MG Oral Capsule [facility] ([facility]) Clarithromycin 500 MG Oral Tablet clarit hromycin 500 mg tablet TAKE ONE TABLET BY MOUTH EVERY 12 HOURS FOR 10 DAYS clarithromycin 500 mg tablet TAKE ONE TA BLET BY MOUTH EVERY 12 HOURS FOR 10 DAYS c ompleted clarithromycin 500 MG Oral Tablet [facility] ([facility]) tramadol hydrochloride 50 MG Oral Tablet tramadol 50 mg tablet TAKE ONE TABLET BY MOUTH EVERY 6 HOURS NEEDED FOR UP TO 2 DAYS MAXIMUM DAILY DOSE FOUR TABLETS tramadol 50 mg tablet TAKE ONE TABLET BY MOUTH EVERY 6 HOURS NEEDED FOR UP TO 2 DAYS MAXIMUM DAILY DOSE FOUR TABLETS completed tramadol hydrochloride 50 MG Oral Tablet [facility] ([facility]) liothyronine sodium 0.025 MG Oral Tablet liothyronine 25 mcg tablet liothyronine 25 mcg tablet completed liothyronine sodium 0.025 MG Oral Tablet [facility] ([facility]) Azithromycin 250 MG Oral Tablet azithrom ycin 250 mg tablet TAKE TWO TABLETS BY MOUTH ONCE DAILY FOR 1 DAY THEN TAKE ONE TABLET BY MOUTH ONCE DAILY FOR 4 DAYS azithromycin 250 mg tablet TAKE TWO TABLETS BY MOUTH ONCE DAILY FOR 1 DAY THEN TAKE ONE TABLET BY MOUTH ONCE DAILY FOR 4 DAYS completed azithromycin 250 MG Oral Tablet [facility] ([facility]) 1 ML Leuprolide Acetate 3.75 MG/ML Prefi lled Syringe [Lupron] Lupron Depot 3.75 mg intramuscular syringe kit INJECT 3.75MG MONTHLY Lupron Depot 3.75 mg intramuscular syringe kit INJECT 3.75MG MONTHLY completed 1 ML leuprolide acetate 3.75 MG/ML Prefilled Syringe [Lupron] [facility] ([facility]) Levothyroxine Sodium 0.025 MG Oral Table t [Levo-T] Levo-T 25 mcg tablet Take 1 tablet every day by oral route. Levo-T 25 mcg tablet Take 1 tablet every day by oral route. 1 completed le vothyroxine sodium 0.025 MG Oral Tablet [Levo-T] [facility] ([facility]) liothyronine sodium 0.025 MG Oral Tablet liothyronine 25 mcg tablet liothyronine 25 mcg tablet completed liothyronine sodium 0.025 MG Oral Tablet [facility] ([facility]) Finasteride 5 MG Oral Tablet finasteride 5 mg tablet finasteride 5 mg tablet completed finasteride 5 MG Oral Tablet [facility] ([facility]) liothyronine sodium 0.025 MG Oral Tablet liothyronine 25 mcg tablet liothyronine 25 mcg tablet completed liothyronine sodium 0.025 MG Oral Tablet [facility] ([facility]) Docusate Sodium 100 MG Oral Capsule docu sate sodium 100 mg capsule TAKE ONE CAPSULE BY MOUTH TWICE A DAY FOR 10 DAYS docusate sodium 100 mg capsule TAKE ONE CAPSULE BY MOUTH TWICE A DAY FOR 10 DAYS completed docusate sodium 100 MG Oral Capsule [facility] ([facility]) doxycycline hyclate 100 MG Oral Capsule doxycycline hyclate 100 mg capsule TAKE ONE CAPSULE BY MOUTH TWICE A DAY FOR 10 DAYS doxycycline hyclate 100 mg capsule TAKE ONE CAPSULE BY MOUTH TWICE A DAY FOR 10 DAYS completed doxycycline hyclate 100 MG Oral Capsule [facility] ([facility]) OneTouch Ultra Blue Test Strip USE DIRECTED FOUR TIMES A DAY [id number] completed OneTouch Ultra Blue Test Strip [facility] ([facility]) Levothyroxine Sodium 0.025 MG Oral Table t [Levo-T] Levo-T 25 mcg tablet Take 1 tablet every day by oral route. Levo-T 25 mcg tablet Take 1 tablet every day by oral route. 1 completed le vothyroxine sodium 0.025 MG Oral Tablet [Levo-T] [facility] ([facility]) doxycycline hyclate 100 MG Oral Capsule doxycycline hyclate 100 mg capsule TAKE ONE CAPSULE BY MOUTH TWICE A DAY FOR 10 DAYS doxycycline hyclate 100 mg capsule TAKE ONE CAPSULE BY MOUTH TWICE A DAY FOR 10 DAYS completed doxycycline hyclate 100 MG Oral Capsule [facility] ([facility]) Progesterone 100 MG Oral Capsule progesterone microniz ed 100 mg capsule progesterone micronized 100 mg capsule completed progesterone 100 MG Oral Capsule [facility] ([facility]) doxycycline hyclate 100 MG Oral Capsule doxycycline hyclate 100 mg capsule TAKE ONE CAPSULE BY MOUTH TWICE A DAY FOR 10 DAYS doxycycline hyclate 100 mg capsule TAKE ONE CAPSULE BY MOUTH TWICE A DAY FOR 10 DAYS completed doxycycline hyclate 100 MG Oral Capsule [facility] ([facility]) liothyronine sodium 0.025 MG Oral Tablet liothyronine 25 mcg tablet liothyronine 25 mcg tablet completed liothyronine sodium 0.025 MG Oral Tablet [facility] ([facility]) Levothyroxine Sodium 0.025 MG Oral Table t [Levo-T] Levo-T 25 mcg tablet Take 1 tablet every day by oral route. Levo-T 25 mcg tablet Take 1 tablet every day by oral route. 1 completed le vothyroxine sodium 0.025 MG Oral Tablet [Levo-T] [facility] ([facility]) Metoprolol Tartrate 25 MG Oral Tablet me toprolol tartrate 25 mg tablet TAKE ONE TABLET BY MOUTH ONCE DAILY metoprolol tartrate 25 mg tablet TAKE ON E TABLET BY MOUTH ONCE DAILY completed metoprolol tartrate 25 MG Oral Tablet [facility] ([facility]) liothyronine sodium 0.025 MG Oral Tablet liothyronine 25 mcg tablet liothyronine 25 mcg tablet completed liothyronine sodium 0.025 MG Oral Tablet [facility] ([facility]) Finasteride 5 MG Oral Tablet finasteride 5 mg tablet finasteride 5 mg tablet completed finasteride 5 MG Oral Tablet [facility] ([facility]) Metoprolol Tartrate 25 MG Oral Tablet me toprolol tartrate 25 mg tablet TAKE ONE TABLET BY MOUTH ONCE DAILY metoprolol tartrate 25 mg tablet TAKE ON E TABLET BY MOUTH ONCE DAILY completed metoprolol tartrate 25 MG Oral Tablet [facility] ([facility]) Docusate Sodium 100 MG Oral Capsule docu sate sodium 100 mg capsule TAKE ONE CAPSULE BY MOUTH TWICE A DAY FOR 10 DAYS docusate sodium 100 mg capsule TAKE ONE CAPSULE BY MOUTH TWICE A DAY FOR 10 DAYS completed docusate sodium 100 MG Oral Capsule [facility] ([facility]) Insurance Providers Payer name Policy type / Coverage type Policy ID Covered republican ID Covered republican's relationship to herrera Policy Herrera Plan Information Medicaid S [id number] S [id number] Managed Care - Community Plan [facility] P [id number] S [id number] Managed Care - [facility] P [id number] S [id number] Managed Care - [facility] O [id number] S [id number] [facility] Community Plan Commercial [id number] Self [facility] Community Plan Commercial [id number] Self [id number] Managed Care - Community Plan [facility] P [id number] S [id number] Medicaid S [id number] S [id number] Managed Care - Community Plan [facility] P [id number] S [id number] Managed Care - Community Plan [employer] P [id number] S [id number] Medicaid S [id number] S [id number] [facility] [id number] SP [id number] [facility] Community Plan Commercial [id number] Self Medicaid [place] Medicaid [id number] Self [facility] Hmo Commercial [id number] Self [id number] Managed Care - [facility] P [id number] S [id number] [facility] Hmo Commercial [id number] Self [id number] Medicaid S [id number] S [id number] [facility] MCDO [id number] SP [id number] Managed Care - [facility] P [id number] S [id number] Medicaid S [id number] S [id number] Managed Care - [facility] P [id number] S [id number] [facility] MMC [id number] self [id number] [facility] I [id number] Self [id number] [facility] I [id number] Self [id number] Medicaid S [id number] S [id number] Managed Care - [facility] P [id number] S [id number] Medicaid S [id number] S [id number] Managed Care - [facility] P [id number] S [id number] [facility] Health Maintenance Organization (HMO) [id number] Self [id number] [place] Med[place] Part [place] [id number] Self [id number] [place] [id number] Self [id number] [place] [id number] Self [id number] [facility] Community Plan Medigap Part B [id number] Self [id number] [facility] Medicaid Medicaid [id number] Self [id number] [facility] Community Plan Medigap Part B [id number] Self [place] [id number] Self [id number] MEDICAID [id number] SP [id number] EMEDNY [id number] SP [id number] Self Pay P [id number] S [id number] Self Pay P UNAVAILABLE S UNAVAILA BLE [facility] PL[facility] [id number] SP [id number] Managed Care - [facility] Community [facility] P [id number] S [id number] [facility] O [id number] S [id number] Medicaid S UNAVAILABLE S UNAVAILA BLE [id number] [place] Part [place] [id number] Self [id number] [place] [id number] Self [id number] [place] [id number] Self [id number] [place] [id number] Self [id number] [place] [id number] Self [id number] MEDICAID [id number] S [id number] [facility] Health Maintenance Organization (HMO) [id number] Self [id number] [facility]AN [facility] [id number] [place] Med[place] Part B [id number] Self [id number] [facility] Health Maintenance Organization (HMO) [id number] Self [id number] Problems, Conditions, and Diagnoses Code Display Name Description Problem Type Effective Dates Data Source(s) F64.9 Gender identity disorder, unspecified Ge nder identity disorder, unspecified Diagnosis 02/19/2021 07:18:00 AM EDT [facility] GENDER DYSPORIA GENDER DYSPORIA Diagnosis 02/19/2021 07:1 8:[address] [facility] pretest pretest Diagnosis 02/13/2021 01:28:[address] [facility] [id number] History of SARS-CoV-2 History of SARS-CoV-2 Prob louise 07/08/2021 12:00:00 AM EDT ANSON ([facility]) [id number] History of orchiectomy History of Orchiectomy Problem 03/05/2021 12:00:00 AM EDT [facility] ([facility]) [id number] History of orchiectomy History of Orchiectomy Problem 03/05/2021 12:00:00 AM EDT JOVON ([facility]) [id number] History of orchiectomy History of Orchiectomy Problem 03/05/2021 12:00:00 AM EDT AN[facility] ([facility]) [id number] Gender dysphoria Gender Dysphoria Problem 02/19/2021 12 :00:00 AM EDT J[facility]ON ([facility]) [id number] Essential hypertension Essential Hypertension Problem 01/21/2021 12:00:00 AM EDT [facility] ([facility]) [id number] Essential hypertension Essential Hypertension Problem 01/21/2021 12:00:00 AM EDT [facility] ([facility]) [id number] Essential hypertension Essential Hypertension Problem 01/21/2021 12:00:00 AM EDT [facility] ([facility]) [id number] Essential hypertension Essential Hypertension Problem 01/21/2021 12:00:00 AM EDT [facility] ([facility]) [id number] Essential hypertension Essential Hypertension Problem 01/21/2021 12:00:00 AM EDT [facility] ([facility]) [id number] Samson's esophagus Samson's esophagus Problem 0 10/23/2020 12:00:00 AM EST [facility] ([facility]) [id number] Type 2 diabetes mellitus Type 2 diabetes mellitus Prob louise 07/13/2020 12:00:00 AM EDT [facility] ([facility]) [id number] Disorder of thyroid gland Disorder of thyroid gland Pr oblem 07/13/2020 12:00:00 AM EDT [facility] ([facility]) [id number] Hyperlipidemia Hyperlipidemia Problem 07/13/2020 12:00: 00 AM EDT [facility] ([facility]) [id number] Type 1 diabetes mellitus without complic ation Type 1 Diabetes Mellitus without Complication Problem 07/05/2020 05:41:32 PM EDT [facility] ([facility]) [id number] Type 1 diabetes mellitus without complic ation Type 1 Diabetes Mellitus without Complication Problem 07/05/2020 05:41:32 PM EDT [facility] ([facility]) [id number] Type 1 diabetes mellitus without complic ation Type 1 Diabetes Mellitus without Complication Problem 07/05/2020 05:41:32 PM EDT [facility] ([facility]) [id number] Type 1 diabetes mellitus without complic ation Type 1 Diabetes Mellitus without Complication Problem 07/05/2020 05:41:32 PM EDT [facility] ([facility]) [id number] Type 1 diabetes mellitus without complic ation Type 1 Diabetes Mellitus without Complication Problem 07/05/2020 05:41:32 PM EDT [facility] ([facility]) [id number] Acute ST segment elevation myocardial in farction Acute ST Segment Elevation Myocardial Infarction Problem 07/05/2020 05:41:32 PM EDT Loli ANNE ([facility]) [id number] Type 1 diabetes mellitus without complic ation Type 1 Diabetes Mellitus without Complication Problem 07/05/2020 05:41:32 PM EDT [facility] ([facility]) [id number] Acute ST segment elevation myocardial in farction Acute ST Segment Elevation Myocardial Infarction Problem 07/05/2020 05:41:32 PM EDT A THENA ([facility]) [id number] Type 1 diabetes mellitus without complic ation Type 1 Diabetes Mellitus without Complication Problem 07/05/2020 05:41:32 PM EDT [facility] ([facility]) [id number] Acute ST segment elevation myocardial in farction Acute ST Segment Elevation Myocardial Infarction Problem 07/05/2020 05:41:32 PM EDT A THENA ([facility]) [id number] Type 1 diabetes mellitus without complic ation Type 1 Diabetes Mellitus without Complication Problem 07/05/2020 05:41:32 PM EDT [facility] ([facility]) [id number] Acute ST segment elevation myocardial in farction Acute ST Segment Elevation Myocardial Infarction Problem 07/05/2020 05:41:32 PM EDT A THENA ([facility]) [id number] Type 1 diabetes mellitus without complic ation Type 1 Diabetes Mellitus without Complication Problem 07/05/2020 05:41:32 PM EDT [facility] ([facility]) [id number] Acute ST segment elevation myocardial in farction Acute ST Segment Elevation Myocardial Infarction Problem 07/05/2020 05:41:32 PM EDT A THENA ([facility]) [id number] Clinical finding Clinical Finding Problem 07/05/2020 05 :41:32 PM EDT [facility] ([facility]) [id number] Acute ST segment elevation myocardial in farction Acute ST Segment Elevation Myocardial Infarction Problem 07/05/2020 05:41:32 PM EDT A THENA ([facility]) [id number] Impotence Impotence Problem 07/14/2019 12:0 0:00 AM EDT - 01/21/2021 12:00:00 AM EDT [facility] ([facility]) [id number] Impotence Impotence Problem 07/14/2019 12:0 0:00 AM EDT - 01/21/2021 12:00:00 AM EDT [facility] ([facility]) [id number] Impotence Impotence Problem 07/14/2019 12:0 0:00 AM EDT - 01/21/2021 12:00:00 AM EDT [facility] ([facility]) [id number] Impotence Impotence Problem 07/14/2019 12:0 0:00 AM EDT - 01/21/2021 12:00:00 AM EDT [facility] ([facility]) [id number] Impotence Impotence Problem 07/14/2019 12:0 0:00 AM EDT - 01/21/2021 12:00:00 AM EDT [facility] ([facility]) [id number] 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 Due to Periodontal Disease Problem 07/22/2018 12:00 :00 AM EDT - 12/11/2020 12:00:00 AM EDT [facility] ([facility]) [id number] 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 Due to Periodontal Disease Problem 07/22/2018 12:00 :00 AM EDT - 12/11/2020 12:00:00 AM EDT [facility] ([facility]) [id number] 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 Due to Periodontal Disease Problem 07/22/2018 12:00 :00 AM EDT - 12/11/2020 12:00:00 AM EDT [facility] ([facility]) [id number] 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 Due to Periodontal Disease Problem 07/22/2018 12:00 :00 AM EDT - 12/11/2020 12:00:00 AM EDT [facility] ([facility]) [id number] 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 Due to Periodontal Disease Problem 07/22/2018 12:00 :00 AM EDT - 12/11/2020 12:00:00 AM EDT [facility] ([facility]) [id number] 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 Due to Periodontal Disease Problem 07/22/2018 12:00 :00 AM EDT - 12/11/2020 12:00:00 AM EDT [facility] ([facility]) [id number] 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 Due to Periodontal Disease Problem 07/22/2018 12:00 :00 AM EDT - 12/11/2020 12:00:00 AM EDT [facility] ([facility]) [id number] Coronary arteriosclerosis Coronary Arteriosclerosis Pr oblem 12/02/2016 12:00:00 AM EDT - 12/11/2020 12:00:00 AM EDT [facility] ([facility]) [id number] Coronary arteriosclerosis Coronary Arteriosclerosis Pr oblem 12/02/2016 12:00:00 AM EDT - 12/11/2020 12:00:00 AM EDT [facility] ([facility]) [id number] Coronary arteriosclerosis Coronary Arteriosclerosis Pr oblem 12/02/2016 12:00:00 AM EDT - 12/11/2020 12:00:00 AM EDT [facility] ([facility]) [id number] Coronary arteriosclerosis Coronary Arteriosclerosis Pr oblem 12/02/2016 12:00:00 AM EDT - 12/11/2020 12:00:00 AM EDT [facility] ([facility]) [id number] Coronary arteriosclerosis Coronary Arteriosclerosis Pr oblem 12/02/2016 12:00:00 AM EDT - 12/11/2020 12:00:00 AM EDT [facility] ([facility]) [id number] Coronary arteriosclerosis Coronary Arteriosclerosis Pr oblem 12/02/2016 12:00:00 AM EDT - 12/11/2020 12:00:00 AM EDT [facility] ([facility]) [id number] Coronary arteriosclerosis Coronary Arteriosclerosis Pr oblem 12/02/2016 12:00:00 AM EDT - 12/11/2020 12:00:00 AM EDT [facility] ([facility]) [id number] Finding of esophagus Finding of Esophagus Problem 05/28/2016 12:00:00 AM EDT - 12/11/2020 12:00:00 AM EDT [facility] ([facility]) [id number] Finding of esophagus Finding of Esophagus Problem 05/28/2016 12:00:00 AM EDT - 12/11/2020 12:00:00 AM EDT [facility] ([facility]) [id number] Finding of esophagus Finding of Esophagus Problem 05/28/2016 12:00:00 AM EDT - 12/11/2020 12:00:00 AM EDT [facility] ([facility]) [id number] Finding of esophagus Finding of Esophagus Problem 05/28/2016 12:00:00 AM EDT - 12/11/2020 12:00:00 AM EDT [facility] ([facility]) [id number] Finding of esophagus Finding of Esophagus Problem 05/28/2016 12:00:00 AM EDT - 12/11/2020 12:00:00 AM EDT [facility] ([facility]) [id number] Finding of esophagus Finding of Esophagus Problem 05/28/2016 12:00:00 AM EDT - 12/11/2020 12:00:00 AM EDT [facility] ([facility]) [id number] Finding of esophagus Finding of Esophagus Problem 05/28/2016 12:00:00 AM EDT - 12/11/2020 12:00:00 AM EDT [facility] ([facility]) [id number] Clinical finding Clinical Finding Problem 014 12:00:00 AM EDT - 07/11/2020 12:00:00 AM EDT [facility] ([facility]) [id number] Clinical finding Clinical Finding Problem 014 12:00:00 AM EDT - 07/11/2020 12:00:00 AM EDT [facility] ([facility]) [id number] Clinical finding Clinical Finding Problem 014 12:00:00 AM EDT - 07/11/2020 12:00:00 AM EDT [facility] ([facility]) [id number] Clinical finding Clinical Finding Problem 014 12:00:00 AM EDT - 07/11/2020 12:00:00 AM EDT [facility] ([facility]) [id number] Clinical finding Clinical Finding Problem 014 12:00:00 AM EDT - 07/11/2020 12:00:00 AM EDT [facility] ([facility]) [id number] Clinical finding Clinical Finding Problem 014 12:00:00 AM EDT - 07/11/2020 12:00:00 AM EDT [facility] ([facility]) [id number] Clinical finding Clinical Finding Problem 014 12:00:00 AM EDT - 07/11/2020 12:00:00 AM EDT [facility] ([facility]) [id number] Clinical finding Clinical Finding Problem 014 12:00:00 AM EDT - 07/11/2020 12:00:00 AM EDT [facility] ([facility]) [id number] Clinical finding Clinical Finding Problem 014 12:00:00 AM EDT - 07/11/2020 12:00:00 AM EDT [facility] ([facility]) [id number] Clinical finding Clinical Finding Problem 12/11/2020 12 :00:00 AM EDT [facility] ([facility]) [id number] Acute ST segment elevation myocardial in farction Acute ST Segment Elevation Myocardial Infarction Problem 02/12/2021 12:00:00 AM EDT A THENA ([facility]) [id number] Clinical finding Clinical Finding Problem 12/11/2020 12 :00:00 AM EDT [facility] ([facility]) [id number] Acute ST segment elevation myocardial in farction Acute ST Segment Elevation Myocardial Infarction Problem 02/12/2021 12:00:00 AM EDT A THENA ([facility]) [id number] Clinical finding Clinical Finding Problem 12/11/2020 12 :00:00 AM EDT [facility] ([facility]) [id number] Acute ST segment elevation myocardial in farction Acute ST Segment Elevation Myocardial Infarction Problem 02/12/2021 12:00:00 AM EDT A THENA ([facility]) [id number] Clinical finding Clinical Finding Problem 12/11/2020 12 :00:00 AM EDT [facility] ([facility]) [id number] Acute ST segment elevation myocardial in farction Acute ST Segment Elevation Myocardial Infarction Problem 02/12/2021 12:00:00 AM EDT Loli ANNE ([facility]) [id number] Clinical finding Clinical Finding Problem 12/11/2020 12 :00:00 AM EDT [facility] ([facility]) [id number] Clinical finding Clinical Finding Problem 12/11/2020 12 :00:00 AM EDT ANSON ([facility]) [id number] Clinical finding Clinical Finding Problem 12/11/2020 12 :00:00 AM EDT ANSON ([facility]) Surgeries/Procedures Procedure Description Date Indications Data Source(s) Diabetic Foot Exam 07/22/2021 12:00:00 AM EDT MEDSUNI ([facility]) OFFICE OUTPATIENT VISIT 25 MINUTES 07/22/2021 12:00:00 AM EDT MEDENT ([facility]) Spirometry 05/29/2021 12:00:00 AM EDT Daphnie ORDOÑEZ ([facility], ) OFFICE OUTPATIENT VISIT 25 MINUTES 05/29/2021 12:00:00 AM EDT [facility], ) DEMO&/EVAL OF PT UTILIZ AERSL GEN/NEB/INHLR/IPPB 04/17 12:00:00 AM EDT [facility] ([facility], ) OFFICE OUTPATIENT VISIT 25 MINUTES 04/17/2021 12:00:00 AM EDT [facility] ([facility], ) EST PT TG EXP PROB FOCUSED 04/12/2021 12 :00:00 AM EDT - 04/12/2021 12:00:00 AM EDT [facility] ([facility]) OFFICE OUTPATIENT NEW 45 MINUTES 04/03/2021 12:00:00 A M EDT MEDSUNI ([facility], ) Amb Glucose Monitoring Interpretation And Report 03/21 12:00:00 AM EDT MEDSUNI ([facility]) OFFICE OUTPATIENT VISIT 25 MINUTES 03/21/2021 12:00:00 AM EDT MEDENT ([facility]) POCT GLUCOSE, DOCKED <td>POCT GLUCOSE, DOCKED</td ><td>Routine</td><td>02/19/2021 11:58 PM EDT</td><td></td><td> </td> 02/19/2021 11:58:[address] [facility] GLUCOSE QUANTITATIVE BLOOD XCPT REAGENT STRIP <td>POCT GLUCOSE, DOCKED</td><td>Routine</td><td>02/19/2021 1:34 PM EDT</td><td></td><td> </td> 02/19/[facility], W/WO PROSTHESIS, SCROTAL/INGUINAL APPROACH <td>ORCHIECTOMY, SIMPLE, W/WO PROSTHESIS, SCROTAL/INGUINAL APPROACH</td><td></td><td>02/19/2021 10:37 AM EDT</td><td> Gender dysphoria</td><td></td> 02/19/2021 10:37:00 AM EDT - 02/19/2021 01:05:00 PM [facility] GLUCOSE QUANTITATIVE BLOOD XCPT REAGENT STRIP <td>POCT GLUCOSE, DOCKED</td><td>Routine</td><td>02/19/2021 8:00 AM EDT</td><td></td><td> </td> 02/19/2021 08:00:[address] [facility] CARDIAC REPORT <td>CARDIAC REPORT</td><td>< /td><td>02/15/2021 4:23 PM EDT</td><td></td><td></td> 02/15/2021 04:23:03 PM EDT [facility] CARDIAC REPORT <td>CARDIAC REPORT</td><td>< /td><td>02/15/2021 4:22 PM EDT</td><td></td><td></td> 02/15/2021 04:22:25 PM EDT [facility] CARDIAC REPORT <td>CARDIAC REPORT</td><td>< /td><td>02/15/2021 4:21 PM EDT</td><td></td><td></td> 02/15/2021 04:21:50 PM EDT [facility] LAB RESULTS (OUTSIDE/HISTORICAL) <td>LAB RESULTS (OUTSIDE/HISTORICAL)</td><td></td><td>02/13/2021 1:10 PM EDT</td><td></td><td></td> 02/13/2021 01:10:20 PM EDT [facility] CARDIAC REPORT <td>CARDIAC REPORT</td><td>< /td><td>02/13/2021 1:09 PM EDT</td><td></td><td></td> 02/13/2021 01:09:27 PM EDT [facility] LAB RESULTS (OUTSIDE/HISTORICAL) <td>LAB RESULTS (OUTSIDE/HISTORICAL)</td><td></td><td>02/11/2021 2:16 PM EDT</td><td></td><td></td> 02/11/2021 02:16:56 PM EDT [facility] LAB RESULTS (OUTSIDE/HISTORICAL) <td>LAB RESULTS (OUTSIDE/HISTORICAL)</td><td></td><td>02/11/2021 2:16 PM EDT</td><td></td><td></td> 02/11/2021 02:16:10 PM EDT [facility] Amb Glucose Monitoring Interpretation And Report 12/14 12:00:00 AM EDT MED[facility] ([facility]) OFFICE OUTPATIENT VISIT 25 MINUTES 12/14/2020 12:00:00 AM EDT MED[facility] ([facility]) Psychiatric Diag Eval W/Medical Service 11/15/2020 12: 00:00 AM EST [facility] ([facility]) UPPER NDSC BIOPSY SINGLE/MULTIPLE 11/05/2020 12:00:00 AM EST [facility] ([facility]) CVR [employer] Reverser.Svc. STI / H 10/12/2020 12:00:00 AM EST - 10/12/2020 12:00:00 AM EST [facility] ([facility]) EST PT TG DETAILED 10/12/2020 12:00:00 AM EST - 2020 12:00:00 AM EST [facility] ([facility]) Amb Glucose Monitoring Interpretation And Report 09/20 12:00:00 AM EST [facility] ([facility]) TG PHONE EST PT E/M BY PHYS 11-20 MIN 1 12:00:00 AM EDT - 07/13/2020 12:00:00 AM EDT [facility] ([facility]) Results ID Date Data Source [id number] 07/22/2021 10:03:00 AM EDT MED[facility] ([facility]) Name Value Range Interpretation Code Description Data Whit rce(s) Supporting Document(s) Glucose [Mass/volume] in Serum or Plasma 171 [facility]) Hemoglobin A1c/Hemoglobin.total in Blood 10.2 [facility] ([facility]) ID Date Data Source [id number] 07/02/2021 08:00:00 PM EDT [facility] Name Value Range Interpretation Code Description Data Whit rce(s) Supporting Document(s) SARS coronavirus 2 RNA [Presence] in Res piratory specimen by DONAVAN with probe detection POSITIVE [facility] This lab was ordered by [facility] a nd reported by [facility]. ID Date Data Source [id number] 06/03/2021 09:00:00 AM EDT MED[facility] ([facility]) Name Value Range Interpretation Code Description Data Whit rce(s) Supporting Document(s) Creatinine [Mass/volume] in Urine 49.8 mg/dL [facility] ([facility]) Microalbumin [Mass/volume] in Urine Laboratory test result [facility] ([facility]) Microalbumin/Creatinine [Mass Ratio] in Urine 10.0 MCG/MG 0.0-30.0 [facility] ([facility]) THE [employer] STATES THAT MICROALBUMINURIA IS PRESENT IF THE MICROALBUMIN/CREATININE RATIO EXCEEDS 30 MCG/MG. THE THRESHOLD FOR CLINICAL ALBUMINURIA IS REACHED AT 300 MCG/MG. THE CLASSIFICATION OF A PATIENT SHOULD BE BASED UPON AT LEAST 2 OF 3 ABNORMAL RESULTS ON SPECIMENS COLLECTED WITHIN A 3 TO 6 MONTH TIME FRAME. ID Date Data Source [id number] 06/03/2021 09:00:00 AM EDT [facility] ([facility]) Name Value Range Interpretation Code Description Data Whit rce(s) Supporting Document(s) White Blood Count 6.3 10 4.0-10.0 [facility] ([facility]) Hematocrit 41.3 % 42.0-52.0 [facility] ([facility] Red Blood Count 4.46 10 4.30-6.10 [facility] ([facility]) Hemoglobin 13.5 g/dL 13.5-17.5 [facility] ([facility]) Mean Corpuscular Volume 92.6 fl 80.0-96.0 M EDENT ([facility]) Mean Corpuscular Hemoglobin 30.3 pg 27.0-33.0 [facility] ([facility]) Mean Corpuscular HGB Conc 32.7 g/dL 32.0-36.5 [facility] ([facility]) Platelet Count, Automated 237 10 150-450 [facility] ([facility]) Red Cell Distribution Width 13.5 % 11.5-14.5 [facility] ([facility]) Nucleated Red Blood Cell % 0.0 % 0-0 [facility] ([facility]) ID Date Data Source [id number] 06/03/2021 09:00:00 AM EDT [facility] ([facility]) Name Value Range Interpretation Code Description Data Whit rce(s) Supporting Document(s) Triglycerides Level 64 mg/dL [facility] ([facility]) LDL Cholesterol 71 mg/dL [facility] ([facility]) Cholesterol Level 150 mg/dL [facility] ([facility]) HDL Cholesterol 66 mg/dL [facility] ([facility]) Cholesterol Risk Ratio 2.272 [facility] ([facility]) Non-HDL-C 84 mg/dL [facility] ([facility]) ID Date Data Source [id number] 06/03/2021 09:00:00 AM EDT [facility] ([facility]) Name Value Range Interpretation Code Description Data Whit rce(s) Supporting Document(s) Estradiol (E2) [Moles/volume] in Serum or Plasma by Hi gh sensitivity method 139.5 pg/mL 8.0-35.0 [facility] ([facility]) This test was developed and its performa nce characteristics determined by [facility]. It has not been cleared by the Food and Drug Administration. Methodology: Liquid chromatography tandem mass spectrometry(LC/MS/MS) Performed at: [address], [place], [place] [address] [address] Chief: Marlys Jin MD, Phone: [phone] Testosterone [Mass/volume] in Serum or Plasma 20 ng/dL [phone] [facility] ([facility]) NORMAL RANGES ARE FOR ADULT FEMALES (OVE R 15 YRS) AND MALES (OVER 19 YRS). FOR PEDIATRIC RANGES PLE ASE CONSULT LITERATURE. ID Date Data Source [id number] 05/29/2021 12:35:00 PM EDT [facility] ([facility], ) Name Value Range Interpretation Code Description Data Whit rce(s) Supporting Document(s) FVC-Pred 5.12 L MEDENT ([facility], ) PDFReport Laboratory test result MEDENT ([facility], ) FVC-%Pred-Pre 60 L MEDENT ([facility], ) FVC-LLN 4.16 L MEDENT ([facility]) FVC-Pre 3.12 L MED[facility] ([facility]) Fev1-Pre 2.58 L [facility] ([facility]) Fev1-%Pred-Pre 65 L MEDENT ([facility]) Fev1-Pred 3.93 L [facility] ([facility]) Fev1-LLN 3.12 L [facility] ([facility]) Fev6-Pred 4.92 L [facility] ([facility]) Fev6-Pre 3.12 L [facility] ([facility]) Fev6-%Pred-Pre 63 L [facility] ([facility]) Fev6-LLN 3.99 L [facility] ([facility]) Vqx4mmd-Luic 77 % [facility] ([facility]) Dom9pjd-Rqk 83 % [facility] ([facility]) Ikv6phl-%Pred-Pre 107 % [facility] ([facility], ) Ybr5kor-HNG 67 % [facility] ([facility]) Iin5spa-Zkyx 96 % [facility] ([facility]) Bda9qme-Ofy 100 % [facility] ([facility]) Jso0dhr-%Pred-Pre 104 % [facility] ([facility]) FEFMax-Pre 6.45 L/E/sec MED[facility] ([facility]) FEFMax-Pred 9.84 L/E/sec [facility] ([facility]) FEFMax-%Pred-Pre 65 L/E/sec [facility] ([facility]) Ata1748-Pqdw 3.37 L/E/sec [facility] ([facility]) Lkq7428-Pxg 3.08 L/E/sec [facility] ([facility]) FEFMax-LLN 7.45 L/E/sec [facility] ([facility]) Hfb8397-JBB 1.72 L/E/sec [facility] ([facility]) Rkl8365-%Pred-Pre 91 L/E/sec [facility] ([facility]) ExpTime-Pre 6.24 sec MED[facility] ([facility]) Oth6xiu4-Qtus 80 % [facility] ([facility]) Lmo8szi9-Ysr 83 % [facility] ([facility]) Cxn3ogu1-%Pred-Pre 103 % [facility] ([facility]) Jzl5afb6-ZGI 71 % [facility] ([facility]) ID Date Data Source [id number] 05/10/2021 03:54:54 PM EDT [facility] Name Value Range Interpretation Code Description Data Whit rce(s) Supporting Document(s) Progress Note [facility] QNERKd2uZaIMJvAv43/AJBvcMJVlh6BmDMhvDQk8TDfvIRHfT0HaFWM0bD2fYBB4QJwQFtIxAsJiVOZz lbm [file] AgICAgICAgICAgICAgICAgICAgICAgICAgICAgICAg ICAgICAgICAgICAgICAgICAgICAgICAgICAgICAgICAgICAgICAgICAgICAgICAgICAgICAgICAgICAg ICANCiAgICAgICAgICAgICAgICAgICAgICAgICAgICAgICAgICAgICAgICAgICAgICAgICAgICAgICAg ICAgICAgICAgICAgICAgICAgICAgICAgICAgICAgIC AgICAgICAgICAgICANCiAgICAgICAgICAgICAgICAgICAgICAgICAgICAgICAgICAgICAgICAgICAgIC AgICAgICAgICAgICAgICAgICAgICAgICAgICAgICAgICAgICAgICAgICAgICAgICAgICAgICANCiAgIC AgICAgICAgICAgICAgICAgICAgICAgICAgICAgICAg ICAgICAgICAgICAgICAgICAgICAgICAgICAgICAgICAgICAgICAgICAgICAgICAgICAgICAgICAgICAg ICAgICANCiAgICAgICAgICAgICAgICAgICAgICAgICAgICAgICAgICAgICAgICAgICAgICAgICAgICAg ICAgICAgICAgICAgICAgICAgICAgICAgICAgICAgIC AgICAgICAgICAgICAgICANCiAgICAgICAgICAgICAgICAgICAgICAgICAgICAgICAgICAgICAgICAgIC AgICAgICAgICAgICAgICAgICAgICAgICAgICAgICAgICAgICAgICAgICAgICAgICAgICAgICAgICANCi AgICAgICAgICAgICAgICAgICAgICAgICAgICAgICAg ICAgICAgICAgICAgICAgICAgICAgICAgICAgICAgICAgICAgICAgICAgICAgICAgICAgICAgICAgICAg ICAgICAgICANCiAgICAgICAgICAgICAgICAgICAgICAgICAgICAgICAgICAgICAgICAgICAgICAgICAg ICAgICAgICAgICAgICAgICAgICAgICAgICAgICAgIC AgICAgICAgICAgICAgICAgICANCiAgICAgICAgICAgICAgICAgICAgICAgICAgICAgICAgICAgICAgIC AgICAgICAgICAgICAgICAgICAgICAgICAgICAgICAgICAgICAgICAgICAgICAgICAgICAgICAgICAgIC ANCiAgICAgICAgICAgICAgICAgICAgICAgICAgICAg ICAgICAgICAgICAgICAgICAgICAgICAgICAgICAgICAgICAgICAgICAgICAgICAgICAgICAgICAgICAg ICAgICAgICAgICANCjw/rQNgU6rekWUaetR9M0hdUo4HPg1XVA8ry1CqJQAzENqorhBfInwZKfWaJIYi ShqXKya9AEwlNM1RyBKcX4ZyT3LwJLfqQM9HMRKwVM OdsDJyVKHcAIXmJoM4KDBjJAkhVR4HhBQaBJylSGBpNJOeKM4RZQUqU639jbXrYZ4TUk3TOzSmNH0uzv 7YVgCcEVVdEgdJRma9OVliDA7EbTWyiMBcLjLuGADTYbJiN9pmx0NhQoVmDMASNHvzHR5Jq0IpgHQbRU o+Dl5XKG9ju9UkBAxqUsCbYP9rmg7HOLdCFrHrA9Dh aLvvGTMrr0ewXTPdRM2vuYFdPRL0PDGchDSvlRlkLpcqt2jwgtWtfGmfTVAwZLNbHg0xAz2iFPUgCLOm YaGjLAZATC7SFKXqRHUviQVzQMOmTYLDMD2EQMmcSQV9HZDwzwImvOAfTFroXO8IIZDnniFwBeMoZWDV DQo+Rs7WEA0ez0WaCSgdZVMqNG9ucf3OXNcGHeFsX9 A9zXBeN4D7NAxrJz9PHPUfSNNiGiAjUQFCMNitBT4IYN7zyhL9QH5OuHMrJEQzOQOciXAfOPm0J88lhB VlWQfoFO3LVBV+Ирина+En0KBNNjXOHuEOAkVhPzZYUYOkCyC1BuT4JQg0SvM6NdBT22jSmdzxRgIVgeOK 4APE1bTRPbTDAHHV4NxYFqvT6rdwPgFuEnDOFMSvOd A37xhURnRWRcPEJzKFKgIf3YJXOoU6CkuoIzyQrcjsHwDKWaCXDHLS6HFPifumJmbDWqrBgwAB43iJkg QH7HHe7TOgWwDM0ysr2OaRBwXt4GEEPwJA8KDFSvENVyODBhDNP5OHHbFoOfMUqvKTFbTZDtVAE8HSIm DUZvUV4CAjJmZJIlVAeoOlsiUNZrFBCfmd7PHTSrFZ GcHUVfMcQjCXBwZEBpZHfqGVJiMICbHDP2YASjHVQgBE3MLxEnJVKoWAN9AKvgVMVgQAItem0TPWZdOK LiFaEjPuQhRKAgSAQnKYhfSKFeOHZrNBgoKIQkNHKoIK0GPtJwFUPbBFFtCxptROEpKZItne7FNQCrBN FzNiJ5VDZmTFBfJZMiRMjsIQIwIDE3VAN6ACQiNUDq BZ1XFkOyNUBnVEP1THqjYLNzNVQosx6ZDMJfDAPfETl3ESRzNUCoRNPjAHeuIKZpTNN9HMEwZOFyOJVq DM0MKzKqCZFzLKX4DhPoPKVlAEJdzs0PQDHmCWImXrD5HMBqNGVoNAGeNHerCJUnJRZ4TGY7LAKfNNAv BE1AYkCuRCMgOVlvDyPtNKMlPBQhsx7PTNRsLWDzCY WhYTLpMGIiIRRlFAntZEMqBCM7NEl9YUIhREElKD4HKyYqNAOmMZqmBUyvIQUtEOLvsn9BNXXsETNoRC l0TiEmIFUnAPWxVTeuPFUjIOFhRsKmDUTkPKNvBM0KHuIeFQUfWoSxVKDdADLgRYHgdq8VEDTmUHUfWJ MsDGSwSAHsTRQkPTm8boEaaGYmXCg1BD8JC3UvpaVr LcJWDm9Wb333GID6AOTtOm3TI9pnPb5jEQAcARTDIa6FROb5AsY3QrT0ImTsWAWqF5SdHPMmW8GnApP1 RsDwSHR2Bsa+DEx4EnWiFTOtJxObADNaCmF4FYXaSvXvDVKaYtOgBYS8Gb1wDHUBLu3+DQpzdGFydHhy TPXMCqSfNht2BEupVTCRKs7A ID Date Data Source [id number] 03/21/2021 02:28:00 PM EDT [facility] ([facility]) Name Value Range Interpretation Code Description Data Whit rce(s) Supporting Document(s) Hemoglobin A1c/Hemoglobin.total in Blood Laboratory test result [facility] ([facility]) Glucose [Mass/volume] in Serum or Plasma 213 [facility] ([facility]) ID Date Data Source [id number] 02/26/2021 10:26:56 AM EDT [facility] Name Value Range Interpretation Code Description Data Whit rce(s) Supporting Document(s) Discharge Summary [facility] IPATId2eDuNDMtTb62/GNAufKUNrh2ByFGclWZd3GLcdPPDnG3MfJLR3rI8pFXH9IWaCMmHvNbMwRvT0 m [file] ICAgICAgICAgICAgICAgICAgICAgICAgICAgICAgICAgICAgICAgICAgICAgICAgICAgICAgICAgICAg GQRnYQZrVSHuWYIwUD0LRHGxSQBtCLFiGLXaYSKgHG AgICAgICAgICAgICAgICAgICAgICAgICAgICAgICAgICAgICAgICAgICAgICAgICAgICAgICAgICAgIC JfDTInSOZzPFXwPWNoHGWlJBYeNJBrFA9VITUsJAOfIFGaYRZjQHEdJPGoJEBlKYXgEOPxDVGeLPWfGO AgICAgICAgICAgICAgICAgICAgICAgICAgICAgICAg AJQqDTLjYKPtTGUcQFReKLAzCEJlVZDcPDUcRNDvLBLnCQ3SDZKbCIVjTGIrYPYdKAGdUHCgAMJmQSQj ICAgICAgICAgICAgICAgICAgICAgICAgICAgICAgICAgICAgICAgICAgICAgICAgICAgICAgICAgICAg HBIlTDBlIFYrWCVxBRKjPY9CCPNxVSLwCMBtWKQeJC AgICAgICAgICAgICAgICAgICAgICAgICAgICAgICAgICAgICAgICAgICAgICAgICAgICAgICAgICAgIC RhPYRoCAVrNNTbTTZkMSBwBCSaDOUrYWQnCQ0XTOXfGQMeNBQcZZLgOLUsOAOmATGpTXSpCXVsYQCrXH AgICAgICAgICAgICAgICAgICAgICAgICAgICAgICAg HROhQXRcHLHuTFNvQVHxITPiREDePVWvEYEaRERoYBEfYKFgMJ8ECEUhHDXvPEOsMAQiGSCvPALuIYFx ICAgICAgICAgICAgICAgICAgICAgICAgICAgICAgICAgICAgICAgICAgICAgICAgICAgICAgICAgICAg QYMkJGEhCHGuYCFgGHEoCRVwCW4QRXFtMSBwPPRjLT AgICAgICAgICAgICAgICAgICAgICAgICAgICAgICAgICAgICAgICAgICAgICAgICAgICAgICAgICAgIC TbLDKzOPDsZLAkJTKwUIEpVQNoYGDzCQLzSSRvSE3UNZDpYPDlJTJmJXWxAODbJHIaFCFaXXXeZOMkJF AgICAgICAgICAgICAgICAgICAgICAgICAgICAgICAg FUUfZSGuUAUzTJHxYJAgOGFhCLQiLHIyOILyUNEoKKCuRTLiPSMsIW5MTEQqMIEdGSLeQIRgAIEpHIZh ICAgICAgICAgICAgICAgICAgICAgICAgICAgICAgICAgICAgICAgICAgICAgICAgICAgICAgICAgICAg SBUfSQNrDCZnDYBfTJYxKXNvQKYqIQ2TZB13rQSyp4 R1ERCbOG7fwof/Zg4FOFtomsYriNFjGV3DCeVwBQ1ybv6UDiXnXM1qbi4NBPzRMoXjZ2L5eLEvPCKpNO EIOzCkG51uFKugVl62VRoiUAVyQtVbCIy5Pa1TLxWyZ5nyQTZxOhY6MLUvRoD4AQHwPhA3ZXMaWqDfQE VmGISyHK7CAEUjO682neUgTU5UCs9HEuIgDG3mlz1D BqThLNIqFlpNMqt9CClgJT2BdQRmgWIvLVUqDTWYFoZjX8jau3HqScHdVDMQZDpcOZ3Tk2ZckHHgQPk+ Xz5CZM6sv3WjZDckMVHfZT4lfz0PLNiLKfKiX1DgxCxgLUSmp0PiVPIoGAKJiB9hFEQ4LAU1WVVhaENj vTsgVfzdp8tfbdHwrTvcBFFpZPFrRf6qEqJlWpHbQW u6ElMtOW1aLFhzXG1ZYTO8EZjrSMQjSPQiF8aKWyEnGAUuBBUnvDykGP8USoTkJ0DobiNphRCmFGSbKO INCj4+AFuimyNwXqpGIyP5JWDzd8YvZKl4SW8NTIYnYIixMH1JGZSxjE6cLRyxSC5SDaWiYiVeMRZHNl NuS85hrELgMJr1W6EpTpCxCIMwVtxuOPPbQJtxCbRd ZXMgWyBdDQogID4+ID4+YKtrSI1ZGTgkivMdJITxWv1RPMDvAVJxKS3xKAKhCVKwW6U9cSscJEVXXhXo R1olpukgAT1zEITiK329cJgbbxGaNKH0AGKvRf1CPGRgCIT8QRHtqTTgNnBgELZNIVdwID8CeTIfLCM9 aI2eRGucRBAbEXLjY9yDGbFkyXliCC73oNfuhtEglW BdDQo+Cb4DMP9wy8GxPHt6kaNbRBmyKMM2SWxaIZKoNORdUSOqUSP7DSR3DDEVDcTnIWAfLRBcUBxnMK IzAHLmom7ILCAnQTYdTZN2QdSxGGEhXBAiAQivLGKtIXHsXvSxTUEvWMCmAL5LIuLmIFEpWITyRMmgPH QoJXPyik8JZEHePHZpRzoxEiQnFXUeOWBtLMtcTYXh WNYrMXHzXQOjYOVwFQ4OZbOsABXuWGF2NSzxKEFlZZXdbb5XFFRpYEXpCzX0YSZkYMRyTVPnNUhmAPLv AWMbZJN8EBPvGDLlVO7FKrFkZNRuGRUjZZQyNFPiTEXsjo9LJKOhKDFbZtQcQwMtTJAxICLqWZkyXKWa EDZeUMS8FWZyXPJkJM7ZWeYjGJAgGKSjHNsuKZBjFJ Noua1FMCByOBYeRoN7MyBeNCIuEEPxHLogRFKhNLTsGic9TXTwRCNfKL4PMsLlFKFiSLC8YjrdUEMzYG Ttut2DGSXbQNTbNYg0DHHjHINnKVPnIBtsPADcROU3MYK3YRZpHPLiGA6YQpCjTTTjKXRiGPiyJJEqIC Mgtp6NWYJzYWIgXfX6AUAnTHYqVRPhNOsvWXFfNDQ5 UMW4AASzXVMpJL0APkNiPCYmXLa1OxvbTGSfVHCjal8CIUScYGIrGaNkWMPoUBWiESFdZRcqJOVvBVQ7 BPD9DSDnLAUbSZ9GOcHfSOMgQzjzPWHxQYXsVEAsnp7EEMZlCDNoAWGtKSGaLHAlXYFqTCeqKEPqBPF1 DxS0ZYNoBBJtQO4PYdIyFIJnKff9ArqkTMUqIPZfxe 1RIIVrJFLvAOGpMMGdDEMqCJXxAFbiDEEuTCKyMTP8LRWkTEYrSU6JTxIlQEHcEdCyMATgBCYbFBUbww 4SLJNoIWEzWHBlFYSdPEYzWSEaPXdrCDDnUXIjKZfuXMFuQDMvUS2EQdVeTOWfVlThDtEmRVPcEFHkvn 1IMLNbVHMfGmNzOYLpRGHlFSFtNBstNRSqWMJdGGP4 SLUjVOReKJ9GQaHfJGkrGYBJSap6XAweL4i7LDYrFr6OG6Upw1SaQvJyPDZWUQcgNL3qfcRzHEWuQv7Y D8uPYie6FuLfNFj5FYHlGxQxJRTjATPlMnH9WRHfFVzjNWCoKt3tUJZhSmNbIPUiYbNsGVR5AOW6LGT1 XAq1MQYqURWfWOA9AvEyEE4EVe8JDlT1GWC2pJCbFu5KIuA2ZNRDPmOtPG9WKNa= ID Date Data Source [id number] 02/21/2021 10:37:39 AM EDT [facility] Name Value Range Interpretation Code Description Data Whit rce(s) Supporting Document(s) Progress Note [facility] CEYYLn6lLxFNHnTc03/KRHtwRBIwc0FhMVxoZVm7QBbcRGGqH6AaFFZ4tG1qFLC7JWzNPaVwJmTfBbJm lbm [file] AC0TBOf= ID Date Data Source [id number] 02/21/2021 10:33:22 AM EDT [facility] Name Value Range Interpretation Code Description Data Whit rce(s) Supporting Document(s) Operative Note [facility] GPCMOj0vKbNSInMw77/DKGorTKErr7FhEKauRWx7CZnvCTYeM0AeNUI2vE0kKWC2RGpIHlDcPiLfLvIv m [file] CiAgICAgICAgICAgICAgICAgICAgICAgICAgICAgICAgICAgICAgICAgICAgICAgICAgICAgICAgICAg ICAgICAgICAgICAgICAgICAgICAgICAgICAgICAgICAgICAgICAgICANCiAgICAgICAgICAgICAgICAg ICAgICAgICAgICAgICAgICAgICAgICAgICAgICAgIC AgICAgICAgICAgICAgICAgICAgICAgICAgICAgICAgICAgICAgICAgICAgICAgICAgICANCiAgICAgIC AgICAgICAgICAgICAgICAgICAgICAgICAgICAgICAgICAgICAgICAgICAgICAgICAgICAgICAgICAgIC AgICAgICAgICAgICAgICAgICAgICAgICAgICAgICAg ICANCiAgICAgICAgICAgICAgICAgICAgICAgICAgICAgICAgICAgICAgICAgICAgICAgICAgICAgICAg ICAgICAgICAgICAgICAgICAgICAgICAgICAgICAgICAgICAgICAgICAgICANCiAgICAgICAgICAgICAg ICAgICAgICAgICAgICAgICAgICAgICAgICAgICAgIC AgICAgICAgICAgICAgICAgICAgICAgICAgICAgICAgICAgICAgICAgICAgICAgICAgICAgICANCiAgIC AgICAgICAgICAgICAgICAgICAgICAgICAgICAgICAgICAgICAgICAgICAgICAgICAgICAgICAgICAgIC AgICAgICAgICAgICAgICAgICAgICAgICAgICAgICAg ICAgICANCiAgICAgICAgICAgICAgICAgICAgICAgICAgICAgICAgICAgICAgICAgICAgICAgICAgICAg ICAgICAgICAgICAgICAgICAgICAgICAgICAgICAgICAgICAgICAgICAgICAgICANCiAgICAgICAgICAg ICAgICAgICAgICAgICAgICAgICAgICAgICAgICAgIC AgICAgICAgICAgICAgICAgICAgICAgICAgICAgICAgICAgICAgICAgICAgICAgICAgICAgICAgICANCi AgICAgICAgICAgICAgICAgICAgICAgICAgICAgICAgICAgICAgICAgICAgICAgICAgICAgICAgICAgIC AgICAgICAgICAgICAgICAgICAgICAgICAgICAgICAg ICAgICAgICANCiAgICAgICAgICAgICAgICAgICAgICAgICAgICAgICAgICAgICAgICAgICAgICAgICAg ICAgICAgICAgICAgICAgICAgICAgICAgICAgICAgICAgICAgICAgICAgICAgICAgICANCjw/rNItC3bv fYDzxyS6G8drPz7IQg8FLX1zm1QbUXGrBCtjbpBgIo nMJaWkBTPeQueKKbg3AGeoIG3MuLXrH2JpZ6WnZOvxTX4JQTGsOWUavDQlBFLtEWWpNdR2JHRnMShjNE 1CzDYdXFidZCHrIHAsPfAaLWPvLG1RWLPtL011jeAuIz0AIz9IZvNhVB2lnf3MOdDrOJGzDlkKRbc2SE puPY2KvWJfwTQgVuAoNMIIRhQoP2mgg7ZgIkOrMPPI PVjiBV4Ia6BwxKLmCKn+Fj2LJK9iz9QnORsySwDcMY8gic6GVSjFVtKxR7BhjFodXF2aGNRrgGu4ARBL g7VdPHS6MVFyaWKwrRxaTjpbt5qgbhQriYgfVOWvFBQhBu3uCmLjDaUbJHR3UZtiAV9zUZjsKR8PYDN1 JBjoSOXyEOLxG4yPHmUaLLWfFALcqKsyWT2VVzTfR2 BhcmVudCAyNSAwIFINCj4+TLgrbwNgSwnMXbQ4JBBwb2CxWOm7GL3KHEDrVTdmLV5SXXIwsJ4nIHjtKX 3XPoDbKoSrGNQSBvXxW16elAJfSUu3J5QeIiYwTCNvWmkgTJTbDIquWlQgJJPuYeNyRNxdAH1+ID4+DQ ojBE5EPFeqbzLeCYDiEq9LHSPcKXZhWH7nFXXzFKNt N4B8lMceVZDDKoGjM8iltulyXH7xISVqR976pHqjazBfKIJ9PNTaLn1ZAGVaLIR4BLSyfBCmYcXtMKVS SKtmLJ7HtIKmXPK9jS4qFHagXWDfFXXiE2cWYmWqdLeuYC93tDjzmhVolRDhXTy+Vf8QTA0vs9AgVAf5 xgKpPJheOXS3ONdfSLIfXTPmONPaKNY4PYL0BMSEQj SsFDVnIDQnTSmhFIRzTPVsxl0ORQEnZTVkPlFvGYWtDXCcJGHfGSgnIINtPLF0CbD6EDLuLJQrKK1WKv EmLSGkDTMuPCwfJKVhSILtez3BBXTlPZZtTqIfYRQaZICsMADbSJoyXGXaRFBsYcC8LDLfSWOeHL5WJf PwBMOaGUP4XaFwSYGbJGRxhm1IUNMdQGRtRmy4ScPd LIWaMZCkPNzsECBeUOA0AlS5VGJuIVTkHD9DYtNtHGAtROh9UvPvGYNbQHEvvg8PNXRsLALsMXMfNkDo FFUdQYApCGjeHJPsYJF5MRnnZWAiZRYsKO8NYhAbIRPgZAgjTtTeMAZlEBXkfz5KDQEdNMYdDOG2PrWf YISpOVCfGHfwYQNlQYFeYFEqEOTmGZVjFW7BBeXvGT VbECU7DpZiORJiKINfim5OMAByJBBfOCksWFPvUQRdOAZaCKeyUZCoGFYdWcghTNPxJTAdCA7RYgCvTX TgDZM0WdzkZSLdZUQdiq8UDDYxHPMoYvQ3YFLpFIZpZIXwXPrfGPCqNVTrEVBvCYFmFXNfJO0VHrOjWN KwBPNwQYHnQNQfZRYsqr3UQMGcTDHfXqDeTUTpESZc WHUrIJtgTPQjKSHxIDX1VFUhXFQsYQ3NRmHdXYCjSQJ4VOyfXHMlXJViow8UBUIuZGNqBWT0ZRSpVXBb MIBpXBjcTLZzTVM0TwDdHHCwQMHxNW6AXmKfKSepKKMSUmv8QTaeK6g6YWRuWW1KW9Ywn1OfDilkKRAO IVuaGB2vtvPtYHAgPl7ZV7nCKmw9SUKhHsN0KpVbGH BfTHLrQWJzF6LrDKCrQYJeEpOmMS5aUBhlR1ZeAeduVnT5YFVmDBOyJyYeBfBbIJEkZGL6PyX6XgMnJG 1YKk5ZDmF0LOI0yTMhCq8ZGJI1QnEFDqKpAZ0BBQb= ID Date Data Source [id number] 02/20/2021 05:41:58 AM EDT [facility] Name Value Range Interpretation Code Description Data Whit rce(s) Supporting Document(s) Progress Note [facility] NAZYJa9qLqHRCnNd68/AKNtjLMPtq4FwNFynAAv3DGyhECNdY6UiHVD1qF2rMAS7SXhKAwRgQoFsJeWl lbm [file] AgICAgICAgICAgICAgICAgICAgICAgICAgICAgICAg ICAgICAgICAgICAgICAgDQogICAgICAgICAgICAgICAgICAgICAgICAgICAgICAgICAgICAgICAgICAg ICAgICAgICAgICAgICAgICAgICAgICAgICAgICAgICAgICAgICAgICAgICAgICAgICAgICAgICAgDQog ICAgICAgICAgICAgICAgICAgICAgICAgICAgICAgIC AgICAgICAgICAgICAgICAgICAgICAgICAgICAgICAgICAgICAgICAgICAgICAgICAgICAgICAgICAgIC AgICAgICAgDQogICAgICAgICAgICAgICAgICAgICAgICAgICAgICAgICAgICAgICAgICAgICAgICAgIC AgICAgICAgICAgICAgICAgICAgICAgICAgICAgICAg ICAgICAgICAgICAgICAgICAgDQogICAgICAgICAgICAgICAgICAgICAgICAgICAgICAgICAgICAgICAg ICAgICAgICAgICAgICAgICAgICAgICAgICAgICAgICAgICAgICAgICAgICAgICAgICAgICAgICAgICAg DQogICAgICAgICAgICAgICAgICAgICAgICAgICAgIC AgICAgICAgICAgICAgICAgICAgICAgICAgICAgICAgICAgICAgICAgICAgICAgICAgICAgICAgICAgIC AgICAgICAgICAgDQogICAgICAgICAgICAgICAgICAgICAgICAgICAgICAgICAgICAgICAgICAgICAgIC AgICAgICAgICAgICAgICAgICAgICAgICAgICAgICAg ICAgICAgICAgICAgICAgICAgICAgDQogICAgICAgICAgICAgICAgICAgICAgICAgICAgICAgICAgICAg ICAgICAgICAgICAgICAgICAgICAgICAgICAgICAgICAgICAgICAgICAgICAgICAgICAgICAgICAgICAg ICAgDQogICAgICAgICAgICAgICAgICAgICAgICAgIC AgICAgICAgICAgICAgICAgICAgICAgICAgICAgICAgICAgICAgICAgICAgICAgICAgICAgICAgICAgIC AgICAgICAgICAgICAgDQogICAgICAgICAgICAgICAgICAgICAgICAgICAgICAgICAgICAgICAgICAgIC AgICAgICAgICAgICAgICAgICAgICAgICAgICAgICAg ADGfPOXcQVWdQYNdIYFnXGBlGFPoEFVnIMx6Q8ouLMYfYAYfXB4uPUn8Gw0+GYvVGsOuKFO0krKvoI0E QR2uc4HrFPpdULAcg2ZcHAu8YO3CISTjRPobFD6QSGrzur3XTESzAWUizELXg5qeKuEnCWI7NJIeYkhs YM0RWNGfN8pssiLnFAWjSJLKPS5TMaDnE5PunO92VU ENCj4+ZInijtHnDjlYGbO8TUSpa4DfBVo6FT9NFSByYuhrd2JlVYTrYDFJUYutEE4LZLL6MEB1MONrLn 1AXCGuT755jrRtAN3KPt0ENcHbWA3ycm2NIYSpCQCeQknPQzh8WQotWB4BzVXeDKrJut4mrkOfihYYb3 IupbQanUTLEBWgaIAtGLDAYJyiy2T4PVXgOZZEIMWt gER7YsLkRuYxHWPrFHgqMXHIJUiMFrAeE9Qto0MzNyD4CTScApTqKZfoKIKzZfQ4EG07fQijKV9MBRPb YVKvVB45YAS6BMPbBy5JHk2WKoHrRT3kte3MCZLaLTOiUixPKyh1VVduOX5XaHJrD7AkxJXyv4jFGrPi L3FWTNEeQDQyPn6CLPOrNyYkSPAgEChrMH5cUEVoET QWiHpohmY2CW4GWC0uqwEmNW1MUeOyYq9sMn1CGkKqS0CjR7VeJTCzADJTPIwhSJ6XMGlfOY3fIS3Ca9 EFkUEfsD8uxk8HTYAoJYWsXsikmk7UVaqmA3S0aUiqYHWzLLQwPAHKBQdhBD3RQQMoYGE6EDNoBfEzOP QUMiRlP18oWM9DT8Rja39mAgU5ZQAwPkZaOQggCQ27 tNklzyUdcNXimYqqEV7DSj0+FPidugHhObcGBlgeFQGEKnCzORoMCqGaVYUdXBAlOBFtFhY6HuTtAs1R IRStGKXyZUMaJhUiFLOvQQYqQXbvCZWgMZL6ZbCuXGNwHZEiGB5QBeKcZCBaWLW9BqHvLWXzKWGszd8J XHKpVVFzJTZ8UkRpETVvQAQdVHepHRWxKPInJQMoVW BzLOMaOP8IUyNpLEWiAWKbDYWoLRNaGFQhvh7EOITeLNXlCxh6CCSfPFEiUFXvASrwXWAjAPIpCUAdDB MlMZHyLK9NWnVyNIFtJGJrMEOtSTRdDQDyus3CHQHqCUFdVOC5HMXzXOJeBTLdJVdzGQZmTKH4SSJaIF JfKQObDI9CDhWdBWSpFJT5DTmbHRSoRBMqka4OVLNs BYFdHAC0NGVvILNaXGFiWXssAISlWZR0EGP7TEEaJIPmXQ3FXuEbDXNeFCD2WEEbBPNoAWPntl8JYGAi LHVsPqb1OkCtFATcQYCwMIk2csHrmXToRTc4VJ8SY1HwssOcIJmMAe6Qm341QSF7EUXaTb4OT2nzDj8q TJMdOPQVXf8DWKq3EVj1VTG1MMH3X5D0ZCScLwH6WH M0ToLnY2DaVdNoCJZ+AYklSrU3VdteMBpmDSieHJZxETO4NHszXkNhHQGfV0LoAf6dIJBBVq7+DQpzdG YmiTboMHGGXyQ5SMoVSyQzPA2CKSt= ID Date Data Source [id number] 02/20/2021 12:05:54 AM EDT [facility] Name Value Range Interpretation Code Description Data Whit rce(s) Supporting Document(s) Glucose [Mass/volume] in Capillary blood by Glucometer 144 mg/dL 70- 140 [facility] ID Date Data Source [id number] 02/19/2021 05:46:00 PM EDT [facility] Name Value Range Interpretation Code Description Data Whit rce(s) Supporting Document(s) Progress Note [facility] SMPFWh1sLyTHSnIx45/XPTtlPVVlk0BaQPrqPHh4YKcsYIFgO6FmTYZ9jI5iLMK5KDaAInCaXoIaXkWv lbm [file] [id number]= ID Date Data Source [id number] 02/19/2021 01:37:53 PM EDT [facility] Name Value Range Interpretation Code Description Data Whit rce(s) Supporting Document(s) Glucose [Mass/volume] in Capillary blood by Glucometer 97 mg/dL 70- 140 [facility] ID Date Data Source [id number] 02/19/2021 10:29:52 AM EDT [facility] Name Value Range Interpretation Code Description Data Whit rce(s) Supporting Document(s) History and Physical [facility] VZHFFu9tRkSDLmPn95/PNBdmRWGck3DkBHcaWWn3KMajFUVhL5DxNUN2sJ3gEGP1ACqIFiUvFpJiCbJy lbm [file] [id number]e= ID Date Data Source [id number] 02/19/2021 08:02:27 AM EDT [facility] Name Value Range Interpretation Code Description Data Whit rce(s) Supporting Document(s) Glucose [Mass/volume] in Capillary blood by Glucometer 172 mg/dL 70- 140 [facility] ID Date Data Source [id number] 02/22/2021 10:11:00 AM EDT [facility] Surgical Pathology ReportName: CARLITOS SANTIZOMRN: [id number] Number: [id number] Date: 02/19/2021 00:00Received Date: 02/20/2021 09:52Physician(s): GRACIELA THOMPSON MD NIKOLAVSKY, DMITRIY, MDSpecimen(s) ReceivedA: Left testicleB: Right testicleClinical HistoryGender dysphoria.DiagnosisA,B) TESTICLES, LEFT AND RIGHT, EXCISION: BENIGN TESTICULAR PARENCHYMA. Electronically Signed By Usman Munson M.D., Attending Pathologist02/22/2021 10:11:04 Unless 'gross-only' is specified, the final diagnosis is based on amicroscopic examination of training representative sections of tissue.Gross Description The specimen is received in two parts. Part A is received in formalin and labeled with the patient's name,"Carlitos Santizo" and "left testicle". It consists of a 38.6 g testicle.It consists of a 4.2 cm long by 2.0 cm in diameter portion of spermaticcord, a 5.1 x 2.8 x 2.5 cm testicle and a 3.6 x 1.5 x 1.1 cm epididymis.Sectioning reveals yellow-orange, stringy parenchyma with no mass es orlesions grossly identified. Global Safety Officer sections are submitted in onecassette. Part B is received in formalin and labeled with the patient's name,"Carlitos Santizo" and "right testicle". It consists of a 42.8 cm testicle.It consists of a 3.7 cm long by 2.4 cm diameter spermatic cord, 4.8 x 2.9x 2.5 cm testicle and 4.1 x 1.3 x 1.0 cm epididymis. Sectioning reveals ayellow-orange, stringy parenchyma with no masses or lesions grosslyidentified. Global Safety Officer sections are submitted in one cassette. COWLITZ\\This report may include one or more immunohistochemical stain results thatuse analyte specific reagents. All positive and negative controls havebeen reviewed by the attending pathologist and are satisfactory. The testswere developed and their performance characteristics determined by [facility] Pathology department. They have not been cleared or approved by the USFood and Drug Administration. The FDA has determined that such clearanceor approval is not necessary. Name Value Range Interpretation Code Description Data [facility] rce(s) Supporting Document(s) ID Date Data Source [id number] 02/14/2021 12:15:00 PM EDT [facility]) Name Value Range Interpretation Code Description Data [facility] rce(s) Supporting Document(s) ID Date Data Source [id number] 02/14/2021 12:15:00 PM EDT [facility]) Name Value Range Interpretation Code Description Data [facility] rce(s) Supporting Document(s) ID Date Data Source [id number] 02/14/2021 12:15:00 PM EDT [facility]) Name Value Range Interpretation Code Description Data Whit rce(s) Supporting Document(s) ID Date Data Source [id number] 02/14/2021 12:15:00 PM EDT [facility] Name Value Range Interpretation Code Description Data Whit rce(s) Supporting Document(s) SARS-CoV-2 (COVID-19) RNA [Presence] in Respiratory specimen by DONAVAN with probe detection Not Detected [facility] This lab was ordered by [facility] and reported by [employer]. ID Date Data Source [id number] 02/04/2021 11:12:00 AM EDT [facility]) Name Value Range Interpretation Code Description Data Whit rce(s) Supporting Document(s) Hemoglobin A1c/Hemoglobin.total in Blood 8.3 % Hemoglobin a1C [facility]) estimated average glucose 192 mg/dL 60-110 Above high norm al Estimated Average Glucose [facility]) ID Date Data Source [id number] 02/04/2021 11:12:00 AM EDT [facility]) Name Value Range Interpretation Code Description Data Whit rce(s) Supporting Document(s) total 25(oh) vitamin D 11.2 NG/mL 30.0-100.0 Below low normal T otal 25(Oh) Vitamin D [facility]) ID Date Data Source [id number] 02/04/2021 11:12:00 AM EDT [facility]) Name Value Range Interpretation Code Description Data Whit rce(s) Supporting Document(s) thyroid stimulating hormone 2.670 uIU/mL 0.358-3.740 Thyroid Stimulating Hormone [facility]) ID Date Data Source [id number] 02/04/2021 11:12:00 AM EDT [facility]) Name Value Range Interpretation Code Description Data Whit rce(s) Supporting Document(s) triglycerides level 92 mg/dL <150 Triglycerides Le manjit ANSON ([facility]) HDL cholesterol 65 mg/dL >40 HDL Cholesterol ATHE NA ([facility]) non-HDL-C 62 mg/dL Non-hdl-c [facility] ([facility]) Cholesterol in LDL [Mass/volume] in Serum or Plasma 44 mg/dL <1 00 LDL Cholesterol J[facility] ([facility]) cholesterol level 127 mg/dL <200 Cholesterol Level [facility] ([facility]) cholesterol risk ratio <5 Cholesterol R isk Ratio [facility] ([facility]) ID Date Data Source [id number] 02/04/2021 11:12:00 AM EDT [facility] ([facility]) Name Value Range Interpretation Code Description Data Whit rce(s) Supporting Document(s) estimated average glucose 192 mg/dL 60-110 Above high norm al Estimated Average Glucose [facility] ([facility]) Hemoglobin A1c/Hemoglobin.total in Blood 8.3 % Hemoglobin a1C [facility] ([facility]) ID Date Data Source [id number] 02/04/2021 11:12:00 AM EDT [facility] ([facility]) Name Value Range Interpretation Code Description Data Whit rce(s) Supporting Document(s) total 25(oh) vitamin D 11.2 NG/mL 30.0-100.0 Below low normal T otal 25(Oh) Vitamin D [facility] ([facility]) ID Date Data Source [id number] 02/04/2021 11:12:00 AM EDT [facility] ([facility]) Name Value Range Interpretation Code Description Data Whit rce(s) Supporting Document(s) thyroid stimulating hormone 2.670 uIU/mL 0.358-3.740 Thyroid Stimulating Hormone [facility] ([facility]) ID Date Data Source [id number] 02/04/2021 11:12:00 [facility] Name Value Range Interpretation Code Description Data Whit rce(s) Supporting Document(s) triglycerides level 92 mg/dL <150 Triglycerides Le manjit JOVON ([facility]) HDL cholesterol 65 mg/dL >40 HDL Cholesterol ATHE NA ([facility]) Cholesterol in LDL [Mass/volume] in Serum or Plasma 44 mg/dL <1 00 LDL Cholesterol J[facility]ON ([facility]) cholesterol level 127 mg/dL <200 Cholesterol Level J[facility]ON ([facility]) cholesterol risk ratio <5 Cholesterol R isk Ratio [facility] ([facility]) non-HDL-C 62 mg/dL Non-hdl-c [facility] ([facility]) ID Date Data Source [id number] 02/04/2021 11:12:00 AM EDT [facility] ([facility]) Name Value Range Interpretation Code Description Data Whit rce(s) Supporting Document(s) estimated average glucose 192 mg/dL 60-110 Above high norm al Estimated Average Glucose [facility] ([facility]) Hemoglobin A1c/Hemoglobin.total in Blood 8.3 % Hemoglobin a1C [facility] ([facility]) ID Date Data Source [id number] 02/04/2021 11:12:00 AM EDT [facility] ([facility]) Name Value Range Interpretation Code Description Data Whit rce(s) Supporting Document(s) total 25(oh) vitamin D 11.2 NG/mL 30.0-100.0 Below low normal T otal 25(Oh) Vitamin D [facility] ID Date Data Source [id number] 02/04/2021 11:12:00 AM EDT [facility] Name Value Range Interpretation Code Description Data Whit rce(s) Supporting Document(s) thyroid stimulating hormone 2.670 uIU/mL 0.358-3.740 Thyroid Stimulating Hormone [facility] ([facility]) ID Date Data Source [id number] 02/04/2021 11:12:00 AM EDT [facility] ([facility]) Name Value Range Interpretation Code Description Data Whit rce(s) Supporting Document(s) triglycerides level 92 mg/dL <150 Triglycerides Le manjit J[facility]ON ([facility]) HDL cholesterol 65 mg/dL >40 HDL Cholesterol ATHE NA ([facility]) cholesterol level 127 mg/dL <200 Cholesterol Level J[facility]ON ([facility]) Cholesterol in LDL [Mass/volume] in Serum or Plasma 44 mg/dL <1 00 LDL Cholesterol J[facility] ([facility]) non-HDL-C 62 mg/dL Non-hdl-c [facility] ([facility]) cholesterol risk ratio <5 Cholesterol R isk Ratio [facility] ([facility]) ID Date Data Source [id number] 02/04/2021 11:12:00 AM EDT [facility] ([facility]) Name Value Range Interpretation Code Description Data Whit rce(s) Supporting Document(s) Hemoglobin A1c/Hemoglobin.total in Blood 8.3 % Hemoglobin a1C [facility] ([facility]) estimated average glucose 192 mg/dL 60-110 Above high norm al Estimated Average Glucose [facility] ([facility]) ID Date Data Source [id number] 02/04/2021 11:12:00 AM EDT [facility] ([facility]) Name Value Range Interpretation Code Description Data Whit rce(s) Supporting Document(s) total 25(oh) vitamin D 11.2 NG/mL 30.0-100.0 Below low normal T otal 25(Oh) Vitamin D [facility] ([facility]) ID Date Data Source [id number] 02/04/2021 11:12:00 AM EDT [facility] Name Value Range Interpretation Code Description Data Whit rce(s) Supporting Document(s) thyroid stimulating hormone 2.670 uIU/mL 0.358-3.740 Thyroid Stimulating Hormone [facility] ([facility]) ID Date Data Source [id number] 02/04/2021 11:12:00 AM EDT ANSON ([facility]) Name Value Range Interpretation Code Description Data Whit rce(s) Supporting Document(s) cholesterol level 127 mg/dL <200 Cholesterol Level JOVON ([facility]) triglycerides level 92 mg/dL <150 Triglycerides Le manjit JOVON ([facility]) HDL cholesterol 65 mg/dL >40 HDL Cholesterol ATHE NA ([facility]) Cholesterol in LDL [Mass/volume] in Serum or Plasma 44 mg/dL <1 00 LDL Cholesterol J[facility]ON ([facility]) non-HDL-C 62 mg/dL Non-hdl-c [facility] ([facility]) cholesterol risk ratio <5 Cholesterol R isk Ratio [facility] ([facility]) ID Date Data Source [id number] 01/28/2021 03:18:15 PM EDT [facility] Name Value Range Interpretation Code Description Data Whit rce(s) Supporting Document(s) Progress Note [facility] [id number]PoNLUx [facility] [file] [id number]/boiling off winder+Fgx5ge [file] [id number]= ID Date Data Source [id number] 12/14/2020 11:56:00 AM EDT [facility] ([facility] ) Name Value Range Interpretation Code Description Data Whit rce(s) Supporting Document(s) Glucose [Mass/volume] in Serum or Plasma 159 [facility] ([facility]) Hemoglobin A1c/Hemoglobin.total in Blood 8.4 [facility] ([facility]) ID Date Data Source [id number] 12/12/2020 05:16:00 PM EDT [facility]) Name Value Range Interpretation Code Description Data Whit rce(s) Supporting Document(s) nt-pro BNP 25 pg/mL <125 Nt-pro BNP ANSON ([facility]) ID Date Data Source [id number] 12/12/2020 05:16:00 PM EDT [facility]) Name Value Range Interpretation Code Description Data Whit rce(s) Supporting Document(s) glucose, fasting 181 mg/dL 70-100 Above high normal Glucose, Fas ting ANSON ([facility]) blood urea nitrogen 12 mg/dL 7-18 Blood Urea Nitro gen JOVON ([facility]) sodium level 137 mEq/L 136-145 Sodium Level JOVON ([facility]) glomerular filtration rate > 60.0 >56 Glomerula r Filtration Rate JOVON ([facility]) potassium serum 4.4 mEq/L 3.5-5.1 Potassium Serum ATHE NA ([facility]) creatinine for GFR 0.78 mg/dL 0.70-1.30 Creatinine for GF R JOVON ([facility]) carbon dioxide level 28 mEq/L 21-32 Carbon Dioxide Level J[facility]ON ([facility]) chloride level 102 mEq/L 98-107 Chloride Level J[facility] ([facility]) calcium level 9.0 mg/dL 8.5-10.1 Calcium Level JOVON ( [facility]) anion gap 7 mEq/L 8-16 Below low normal Anion Gap J[facility] ( [facility]) alkaline phosphatase 84 U/L 45-117 Alkaline Phosph atase [facility] ([facility]) bilirubin,total 0.3 mg/dL 0.2-1.0 Bilirubin,total ATHE NA ([facility]) ALT/SGPT 31 U/L 12-78 ALT/SGPT [facility] ([facility]) total protein 6.6 gm/dL 6.4-8.2 Total Protein J[facility]ON ( [facility]) AST/SGOT 15 U/L 7-37 AST/SGOT [facility] ([facility]) albumin 3.7 gm/dL 3.2-5.2 Albumin [facility] ([facility]) albumin/globulin ratio Albumin/globu trish Ratio J[facility]ON ([facility]) ID Date Data Source [id number] 12/12/2020 05:16:00 PM EDT [facility] ([facility]) Name Value Range Interpretation Code Description Data Whit rce(s) Supporting Document(s) white blood count 6.3 10 4.0-10.0 White Blood Count J[facility] ([facility]) red blood count 4.57 10 4.30-6.10 Red Blood Count ATHE NA ([facility]) hemoglobin 14.1 g/dL 13.5-17.5 Hemoglobin J[facility]ON ([facility]) mean corpuscular volume 93.4 fL 80.0-96.0 Mean Corpusc ular Volume J[facility]ON ([facility]) mean corpuscular HGB conc 33.0 g/dL 32.0-36.5 Mean Corpu scular HGB Conc J[facility] ([facility]) mean corpuscular hemoglobin 30.9 pg 27.0-33.0 Mean Cor puscular Hemoglobin [facility] ([facility]) hematocrit 42.7 % 42.0-52.0 Hematocrit [facility] ([facility]) neutrophils % 44.7 % 36.0-66.0 Neutrophils % J[facility] ( [facility]) platelet count, automated 231 10 150-450 Platelet C ount, Automated [facility] ([facility]) red cell distribution width 13.3 % 11.5-14.5 Red Cell Distribution Width [facility] ([facility]) eos % 8.7 % 0.0-3.0 Above high normal Eos % [facility] ([facility]) baso % 2.1 % 0.0-1.0 Above high normal Baso % [facility] ([facility]) mono % 9.7 % 2.0-8.0 Above high normal Ada % [facility] ([facility]) lymph % 33.7 % 24.0-44.0 Lymph % [facility] ([facility]) immature granulocyte % 1.1 % 0-3.0 Immature Gran ulocyte % [facility] ([facility]) mono # 0.6 10 0.0-0.8 Ada # [facility] ([facility]) neutrophils # 2.8 10 1.5-8.5 Neutrophils # J[facility]ON ( [facility]) nucleated red blood cell % 0.0 % 0-0 Nucleated Red Blood Cell % [facility] ([facility]) lymph # 2.1 10 1.5-5.0 Lymph # [facility] ([facility]) eos # 0.6 10 0.0-0.5 Above high normal Eos # [facility] ([facility]) baso # 0.1 10 0.0-0.2 Baso # [facility] ([facility]) ID Date Data Source [id number] 12/12/2020 05:16:00 PM EDT [facility] ([facility]) Name Value Range Interpretation Code Description Data Whit rce(s) Supporting Document(s) nt-pro BNP 25 pg/mL <125 Nt-pro BNP ANSON ([facility]) ID Date Data Source [id number] 12/12/2020 05:16:00 PM EDT [facility] ([facility]) Name Value Range Interpretation Code Description Data Whit rce(s) Supporting Document(s) glucose, fasting 181 mg/dL 70-100 Above high normal Glucose, Fas ting J[facility]ON ([facility]) sodium level 137 mEq/L 136-145 Sodium Level [facility] ([facility]) glomerular filtration rate > 60.0 >56 Glomerula r Filtration Rate J[facility] ([facility]) blood urea nitrogen 12 mg/dL 7-18 Blood Urea Nitro gen [facility] ([facility]) creatinine for GFR 0.78 mg/dL 0.70-1.30 Creatinine for GF R [facility] ([facility]) chloride level 102 mEq/L 98-107 Chloride Level ANSON ([facility]) potassium serum 4.4 mEq/L 3.5-5.1 Potassium Serum ATHE ([facility]) carbon dioxide level 28 mEq/L 21-32 Carbon Dioxide Level [facility] ([facility]) AST/SGOT 15 U/L 7-37 AST/SGOT [facility] ([facility]) ALT/SGPT 31 U/L 12-78 ALT/SGPT [facility] ([facility]) alkaline phosphatase 84 U/L 45-117 Alkaline Phosph atase [facility] ([facility]) anion gap 7 mEq/L 8-16 Below low normal Anion Gap J[facility] ( [facility]) calcium level 9.0 mg/dL 8.5-10.1 Calcium Level ANSON ( [facility]) total protein 6.6 gm/dL 6.4-8.2 Total Protein JOVON ( [facility]) albumin 3.7 gm/dL 3.2-5.2 Albumin [facility] ([facility]) albumin/globulin ratio Albumin/globu trish Ratio [facility] ([facility]) bilirubin,total 0.3 mg/dL 0.2-1.0 Bilirubin,total ATHE NA ([facility]) ID Date Data Source [id number] 12/12/2020 05:16:00 PM EDT [facility] ([facility]) Name Value Range Interpretation Code Description Data Whit rce(s) Supporting Document(s) white blood count 6.3 10 4.0-10.0 White Blood Count [facility] ([facility]) hemoglobin 14.1 g/dL 13.5-17.5 Hemoglobin [facility] ([facility]) red blood count 4.57 10 4.30-6.10 Red Blood Count ATHE NA ([facility]) mean corpuscular volume 93.4 fL 80.0-96.0 Mean Corpusc ular Volume [facility]ON ([facility]) mean corpuscular hemoglobin 30.9 pg 27.0-33.0 Mean Cor puscular Hemoglobin [facility] ([facility]) mean corpuscular HGB conc 33.0 g/dL 32.0-36.5 Mean Corpu scular HGB Conc [facility] ([facility]) hematocrit 42.7 % 42.0-52.0 Hematocrit [facility] ([facility]) lymph % 33.7 % 24.0-44.0 Lymph % [facility] ([facility]) red cell distribution width 13.3 % 11.5-14.5 Red Cell Distribution Width [facility] ([facility]) platelet count, automated 231 10 150-450 Platelet C ount, Automated [facility] ([facility]) neutrophils % 44.7 % 36.0-66.0 Neutrophils % [facility] ( [facility]) eos % 8.7 % 0.0-3.0 Above high normal Eos % [facility] ([facility]) mono % 9.7 % 2.0-8.0 Above high normal Ada % [facility] ([facility]) baso % 2.1 % 0.0-1.0 Above high normal Baso % [facility] ([facility]) immature granulocyte % 1.1 % 0-3.0 Immature Gran ulocyte % [facility] ([facility]) nucleated red blood cell % 0.0 % 0-0 Nucleated Red Blood Cell % [facility] ([facility]) lymph # 2.1 10 1.5-5.0 Lymph # [facility] ([facility]) neutrophils # 2.8 10 1.5-8.5 Neutrophils # [facility] ( [facility]) mono # 0.6 10 0.0-0.8 Ada # [facility] ([facility]) baso # 0.1 10 0.0-0.2 Baso # [facility] ([facility]) eos # 0.6 10 0.0-0.5 Above high normal Eos # [facility] ([facility]) ID Date Data Source [id number] 12/12/2020 05:16:00 PM EDT [facility] ([facility]) Name Value Range Interpretation Code Description Data Whit rce(s) Supporting Document(s) nt-pro BNP 25 pg/mL <125 Nt-pro BNP [facility] ([facility]) ID Date Data Source [id number] 12/12/2020 05:16:00 PM EDT [facility] ([facility]) Name Value Range Interpretation Code Description Data Whit rce(s) Supporting Document(s) blood urea nitrogen 12 mg/dL 7-18 Blood Urea Nitro gen [facility] ([facility]) glucose, fasting 181 mg/dL 70-100 Above high normal Glucose, Fas ting [facility] ([facility]) sodium level 137 mEq/L 136-145 Sodium Level [facility] ([facility]) glomerular filtration rate > 60.0 >56 [place] r Filtration Rate JOVON ([facility]) creatinine for GFR 0.78 mg/dL 0.70-1.30 Creatinine for GF R JOVON ([facility]) potassium serum 4.4 mEq/L 3.5-5.1 Potassium Serum ATHE NA ([facility]) calcium level 9.0 mg/dL 8.5-10.1 Calcium Level JOVON ( [facility]) chloride level 102 mEq/L 98-107 Chloride Level JOVON ([facility]) anion gap 7 mEq/L 8-16 Below low normal Anion Gap JOVON ( [facility]) carbon dioxide level 28 mEq/L 21-32 Carbon Dioxide Level JOVON ([facility]) alkaline phosphatase 84 U/L 45-117 Alkaline Phosph atase JOVON ([facility]) ALT/SGPT 31 U/L 12-78 ALT/SGPT JOVON ([facility]) total protein 6.6 gm/dL 6.4-8.2 Total Protein JOVON ( [facility]) bilirubin,total 0.3 mg/dL 0.2-1.0 Bilirubin,total ATHE ([facility]) AST/SGOT 15 U/L 7-37 AST/SGOT [facility] ([facility]) albumin 3.7 gm/dL 3.2-5.2 Albumin [facility] ([facility] [facility]) albumin/globulin ratio Albumin/globu trish Ratio JOVON ([facility]) ID Date Data Source [id number] 12/12/2020 05:16:00 PM EDT JOVON ([facility]) Name Value Range Interpretation Code Description Data Whit rce(s) Supporting Document(s) white blood count 6.3 10 4.0-10.0 White Blood Count JOVON ([facility]) red blood count 4.57 10 4.30-6.10 Red Blood Count ATHE ([facility]) hemoglobin 14.1 g/dL 13.5-17.5 Hemoglobin JOVON ([facility]) mean corpuscular volume 93.4 fL 80.0-96.0 Mean Corpusc ular Volume JOVON ([facility]) hematocrit 42.7 % 42.0-52.0 Hematocrit JOVON ([facility]) platelet count, automated 231 10 150-450 Platelet C ount, Automated JOVON ([facility]) red cell distribution width 13.3 % 11.5-14.5 Red Cell Distribution Width JOVON ([facility]) mean corpuscular HGB conc 33.0 g/dL 32.0-36.5 Mean Corpu scular HGB Conc ANSON ([facility]) mean corpuscular hemoglobin 30.9 pg 27.0-33.0 Mean Cor puscular Hemoglobin ANSON ([facility]) lymph % 33.7 % 24.0-44.0 Lymph % ANSON ([facility]) neutrophils % 44.7 % 36.0-66.0 Neutrophils % ANSON ( [facility]) mono % 9.7 % 2.0-8.0 Above high normal Ada % ANSON ([facility]) baso % 2.1 % 0.0-1.0 Above high normal Baso % ANSON ([facility]) nucleated red blood cell % 0.0 % 0-0 Nucleated Red Blood Cell % ANSON ([facility]) eos % 8.7 % 0.0-3.0 Above high normal Eos % ANSON ([facility]) immature granulocyte % 1.1 % 0-3.0 Immature Gran ulocyte % ANSON ([facility]) lymph # 2.1 10 1.5-5.0 Lymph # ANSON ([facility]) eos # 0.6 10 0.0-0.5 Above high normal Eos # JOVON ([facility]) neutrophils # 2.8 10 1.5-8.5 Neutrophils # JOVON ( [facility]) mono # 0.6 10 0.0-0.8 Ada # ANSON ([facility]) baso # 0.1 10 0.0-0.2 Baso # ANSON ([facility]) ID Date Data Source [id number] 12/12/2020 05:16:00 PM EDT ANSON ([facility]) Name Value Range Interpretation Code Description Data Whit rce(s) Supporting Document(s) nt-pro BNP 25 pg/mL <125 Nt-pro BNP ANSON ([facility]) ID Date Data Source [id number] 12/12/2020 05:16:00 PM EDT JOVON ([facility]) Name Value Range Interpretation Code Description Data Whit rce(s) Supporting Document(s) creatinine for GFR 0.78 mg/dL 0.70-1.30 Creatinine for GF R JOVON ([facility]) glomerular filtration rate > 60.0 >56 Glomerula r Filtration Rate JOVON ([facility]) glucose, fasting 181 mg/dL 70-100 Above high normal Glucose, Fas ting JOVON ([facility]) blood urea nitrogen 12 mg/dL 7-18 Blood Urea Nitro gen JOVON ([facility]) carbon dioxide level 28 mEq/L 21-32 Carbon Dioxide Level JVOON ([facility]) chloride level 102 mEq/L 98-107 Chloride Level ANSON ([facility]) potassium serum 4.4 mEq/L 3.5-5.1 Potassium Serum ATHE NA ([facility]) sodium level 137 mEq/L 136-145 Sodium Level JOVON ([facility]) AST/SGOT 15 U/L 7-37 AST/SGOT JOVON ([facility]) anion gap 7 mEq/L 8-16 Below low normal Anion Gap JOVON ( [facility]) ALT/SGPT 31 U/L 12-78 ALT/SGPT JOVON ([facility]) alkaline phosphatase 84 U/L 45-117 Alkaline Phosph atase JOVON ([facility]) calcium level 9.0 mg/dL 8.5-10.1 Calcium Level JOVON ( [facility]) albumin/globulin ratio Albumin/globu trish Ratio JOVON ([facility]) bilirubin,total 0.3 mg/dL 0.2-1.0 Bilirubin,total ATHE NA ([facility]) albumin 3.7 gm/dL 3.2-5.2 Albumin JOVON ([facility]) total protein 6.6 gm/dL 6.4-8.2 Total Protein JOVON ( [facility]) ID Date Data Source [id number] 12/12/2020 05:16:00 PM EDT JOVON ([facility]) Name Value Range Interpretation Code Description Data Whit rce(s) Supporting Document(s) white blood count 6.3 10 4.0-10.0 White Blood Count JOVON ([facility]) hemoglobin 14.1 g/dL 13.5-17.5 Hemoglobin JOVON ([facility]) red blood count 4.57 10 4.30-6.10 Red Blood Count ATHE ([facility]) mean corpuscular volume 93.4 fL 80.0-96.0 Mean Corpusc ular Volume JOVON ([facility]) mean corpuscular hemoglobin 30.9 pg 27.0-33.0 Mean Cor puscular Hemoglobin JOVON ([facility]) hematocrit 42.7 % 42.0-52.0 Hematocrit JOVON ([facility]) mean corpuscular HGB conc 33.0 g/dL 32.0-36.5 Mean Corpu scular HGB Conc JOVON ([facility]) neutrophils % 44.7 % 36.0-66.0 Neutrophils % ANSON ( [facility]) platelet count, automated 231 10 150-450 Platelet C ount, Automated JOVON ([facility]) red cell distribution width 13.3 % 11.5-14.5 Red Cell Distribution Width JOVON ([facility]) eos % 8.7 % 0.0-3.0 Above high normal Eos % JOVON ([facility]) baso % 2.1 % 0.0-1.0 Above high normal Baso % JOVON ([facility]) lymph % 33.7 % 24.0-44.0 Lymph % JOVON ([facility]) mono % 9.7 % 2.0-8.0 Above high normal Ada % JOVON ([facility]) nucleated red blood cell % 0.0 % 0-0 Nucleated Red Blood Cell % JOVON ([facility]) immature granulocyte % 1.1 % 0-3.0 Immature Gran ulocyte % JOVON ([facility]) lymph # 2.1 10 1.5-5.0 Lymph # JOVON ([facility]) neutrophils # 2.8 10 1.5-8.5 Neutrophils # OJVON ( [facility]) baso # 0.1 10 0.0-0.2 Baso # JOVON ([facility]) mono # 0.6 10 0.0-0.8 Ada # JOVON ([facility]) eos # 0.6 10 0.0-0.5 Above high normal Eos # JOVON ([facility]) ID Date Data Source [id number] 12/12/2020 05:16:00 PM EDT [facility]) Name Value Range Interpretation Code Description Data Whit rce(s) Supporting Document(s) nt-pro BNP 25 pg/mL <125 Nt-pro BNP ANSON ([facility]) ID Date Data Source [id number] 12/12/2020 05:16:00 PM EDT [facility]) Name Value Range Interpretation Code Description Data Whit rce(s) Supporting Document(s) glucose, fasting 181 mg/dL 70-100 Above high normal Glucose, Fas ting ANSON ([facility]) glomerular filtration rate > 60.0 >56 Glomerula r Filtration Rate JOVON ([facility]) sodium level 137 mEq/L 136-145 Sodium Level JOVON ([facility]) creatinine for GFR 0.78 mg/dL 0.70-1.30 Creatinine for GF R JOVON ([facility]) blood urea nitrogen 12 mg/dL 7-18 Blood Urea Nitro gen JOVON ([facility]) potassium serum 4.4 mEq/L 3.5-5.1 Potassium Serum ATHE NA ([facility]) anion gap 7 mEq/L 8-16 Below low normal Anion Gap JOVON ( [facility]) chloride level 102 mEq/L 98-107 Chloride Level ANSON ([facility]) carbon dioxide level 28 mEq/L 21-32 Carbon Dioxide Level JOVON ([facility]) calcium level 9.0 mg/dL 8.5-10.1 Calcium Level JOVON ( [facility]) ALT/SGPT 31 U/L 12-78 ALT/SGPT JOVON ([facility]) AST/SGOT 15 U/L 7-37 AST/SGOT JOVON ([facility]) alkaline phosphatase 84 U/L 45-117 Alkaline Phosph atase JOVON ([facility]) total protein 6.6 gm/dL 6.4-8.2 Total Protein JOVON ( [facility]) albumin 3.7 gm/dL 3.2-5.2 Albumin JOVON ([facility]) albumin/globulin ratio Albumin/globu trish Ratio JOVON ([facility]) bilirubin,total 0.3 mg/dL 0.2-1.0 Bilirubin,total ATHE NA ([facility]) ID Date Data Source [id number] 12/12/2020 05:16:00 PM EDT JOVON ([facility]) Name Value Range Interpretation Code Description Data Whit rce(s) Supporting Document(s) white blood count 6.3 10 4.0-10.0 White Blood Count JOVON ([facility]) red blood count 4.57 10 4.30-6.10 Red Blood Count ATHE NA ([facility]) hematocrit 42.7 % 42.0-52.0 Hematocrit JOVON ([facility]) hemoglobin 14.1 g/dL 13.5-17.5 Hemoglobin JOVON ([facility]) mean corpuscular volume 93.4 fL 80.0-96.0 Mean Corpusc ular Volume JOVON ([facility]) red cell distribution width 13.3 % 11.5-14.5 Red Cell Distribution Width JOVON ([facility]) mean corpuscular HGB conc 33.0 g/dL 32.0-36.5 Mean Corpu scular HGB Conc JOVON ([facility]) mean corpuscular hemoglobin 30.9 pg 27.0-33.0 Mean Cor puscular Hemoglobin JOVON ([facility]) lymph % 33.7 % 24.0-44.0 Lymph % JOVON ([facility]) neutrophils % 44.7 % 36.0-66.0 Neutrophils % JOVON ( [facility]) mono % 9.7 % 2.0-8.0 Above high normal Ada % JOVON ([facility]) platelet count, automated 231 10 150-450 Platelet C ount, Automated JOVON ([facility]) nucleated red blood cell % 0.0 % 0-0 Nucleated Red Blood Cell % JOVON ([facility]) eos % 8.7 % 0.0-3.0 Above high normal Eos % JOVON ([facility]) immature granulocyte % 1.1 % 0-3.0 Immature Gran ulocyte % ANSON ([facility]) baso % 2.1 % 0.0-1.0 Above high normal Baso % ANSON ([facility]) mono # 0.6 10 0.0-0.8 Ada # JOVON ([facility]) neutrophils # 2.8 10 1.5-8.5 Neutrophils # JOVON ( [facility]) lymph # 2.1 10 1.5-5.0 Lymph # JOVON ([facility]) eos # 0.6 10 0.0-0.5 Above high normal Eos # JOVON ([facility]) baso # 0.1 10 0.0-0.2 Baso # JOVON ([facility]) ID Date Data Source [id number] 12/12/2020 05:16:00 PM EDT ANSON ([facility]) Name Value Range Interpretation Code Description Data Whit rce(s) Supporting Document(s) nt-pro BNP 25 pg/mL <125 Nt-pro BNP ANSON ([facility]) ID Date Data Source [id number] 12/12/2020 05:16:00 PM EDT ANSON ([facility]) Name Value Range Interpretation Code Description Data Whit rce(s) Supporting Document(s) glucose, fasting 181 mg/dL 70-100 Above high normal Glucose, Fas ting JOVON ([facility]) glomerular filtration rate > 60.0 >56 Glomerula r Filtration Rate JOVON ([facility]) blood urea nitrogen 12 mg/dL 7-18 Blood Urea Nitro gen JOVON ([facility]) creatinine for GFR 0.78 mg/dL 0.70-1.30 Creatinine for GF R JOVON ([facility]) anion gap 7 mEq/L 8-16 Below low normal Anion Gap JOVON ( [facility]) potassium serum 4.4 mEq/L 3.5-5.1 Potassium Serum ATHE NA ([facility]) chloride level 102 mEq/L 98-107 Chloride Level JOVON ([facility]) carbon dioxide level 28 mEq/L 21-32 Carbon Dioxide Level JOVON ([facility]) sodium level 137 mEq/L 136-145 Sodium Level JOVON ([facility]) AST/SGOT 15 U/L 7-37 AST/SGOT JOVON ([facility]) ALT/SGPT 31 U/L 12-78 ALT/SGPT JOVON ([facility]) calcium level 9.0 mg/dL 8.5-10.1 Calcium Level JOVON ( [facility]) alkaline phosphatase 84 U/L 45-117 Alkaline Phosph atase JOVON ([facility]) albumin/globulin ratio Albumin/globu trish Ratio JOVON ([facility]) total protein 6.6 gm/dL 6.4-8.2 Total Protein JOVON ( [facility]) bilirubin,total 0.3 mg/dL 0.2-1.0 Bilirubin,total ATHE ([facility]) albumin 3.7 gm/dL 3.2-5.2 Albumin JOVON ([facility]) ID Date Data Source [id number] 12/12/2020 05:16:00 PM EDT JOVON ([facility]) Name Value Range Interpretation Code Description Data Whit rce(s) Supporting Document(s) white blood count 6.3 10 4.0-10.0 White Blood Count JOVON ([facility]) red blood count 4.57 10 4.30-6.10 Red Blood Count ATHE NA ([facility]) hemoglobin 14.1 g/dL 13.5-17.5 Hemoglobin JOVON ([facility]) hematocrit 42.7 % 42.0-52.0 Hematocrit JOVON ([facility]) mean corpuscular hemoglobin 30.9 pg 27.0-33.0 Mean Cor puscular Hemoglobin JOVON ([facility]) mean corpuscular volume 93.4 fL 80.0-96.0 Mean Corpusc ular Volume JOVON ([facility]) mean corpuscular HGB conc 33.0 g/dL 32.0-36.5 Mean Corpu scular HGB Conc JOVON ([facility]) red cell distribution width 13.3 % 11.5-14.5 Red Cell Distribution Width JOVON ([facility]) platelet count, automated 231 10 150-450 Platelet C ount, Automated JOVON ([facility]) lymph % 33.7 % 24.0-44.0 Lymph % JOVON ([facility]) eos % 8.7 % 0.0-3.0 Above high normal Eos % ANSON ([facility]) neutrophils % 44.7 % 36.0-66.0 Neutrophils % ANSON ( [facility]) mono % 9.7 % 2.0-8.0 Above high normal Ada % JOVON ([facility]) neutrophils # 2.8 10 1.5-8.5 Neutrophils # ANSON ( [facility]) nucleated red blood cell % 0.0 % 0-0 Nucleated Red Blood Cell % JOVON ([facility]) baso % 2.1 % 0.0-1.0 Above high normal Baso % ANSON ([facility]) immature granulocyte % 1.1 % 0-3.0 Immature Gran ulocyte % JOVON ([facility]) mono # 0.6 10 0.0-0.8 Ada # JOVON ([facility]) lymph # 2.1 10 1.5-5.0 Lymph # JOVON ([facility]) eos # 0.6 10 0.0-0.5 Above high normal Eos # JOVON ([facility]) baso # 0.1 10 0.0-0.2 Baso # JOVON ([facility]) ID Date Data Source [id number] 11/05/2020 10:08:00 AM EST MEDENT ([facility]) Name Value Range Interpretation Code Description Data Whit rce(s) Supporting Document(s) Surgical pathology study Laboratory test result [facility] ([facility]) FINAL DIAGNOSIS Biopsy below Z-line: Intestinal metaplasia, negative for dysplasia. Squamocolumnar junction mucosa with mild chronic inflammation. 11/06/2020 - 1126 CLINICAL DIAGNOSIS H/O intestinal metaplasia 11/05/2020 - 1403 GROSS DIAGNOSIS Received in formalin labeled "biopsy below Z line" is a 0.8 x 0.2 x 0.2 cm. aggregate of mucosal fragments. All in one. - 11/05/2020 - 1403 Signed Wilfredo Mcclendon MD 11/06/2020 1226 ID Date Data Source [id number] 10/31/2020 12:00:00 PM EST [facility] Name Value Range Interpretation Code Description Data Whit rce(s) Supporting Document(s) SARS coronavirus 2 RNA Not Detected [facility] This lab was ordered by [facility] and reported by [facility]. ID Date Data Source [id number] 10/11/2020 12:00:00 AM EST [facility] Name Value Range Interpretation Code Description Data Whit rce(s) Supporting Document(s) SARS coronavirus 2 Ag Negative [facility] This lab was ordered by [facility] and reported by [facility]. ID Date Data Source [id number] 09/24/2020 02:54:00 PM EST MEDENT ([facility] ) Name Value Range Interpretation Code Description Data Whit rce(s) Supporting Document(s) Testosterone [Mass/volume] in Serum or Plasma 15 ng/dL [id number] [facility] ([facility]) NORMAL RANGES ARE FOR ADULT FEMALES (OVE R 15 YRS) AND MALES (OVER 19 YRS). FOR PEDIATRIC RANGES PLE ASE CONSULT LITERATURE. Follitropin [Units/volume] in Serum or Plasma 0.8 mIU/mL 1.4-18.1 MEDENT ([facility]) Lutropin [Moles/volume] in Serum or Plasma 0.1 mIU/mL 1.5-9.3 MED[facility] ([facility]) ID Date Data Source [id number] 09/24/2020 02:54:00 PM EST MEDENT ([facility]) Name Value Range Interpretation Code Description Data Whit rce(s) Supporting Document(s) Glucose, Fasting 246 mg/dL 70-100 MED[facility] ([facility]) Blood Urea Nitrogen 17 mg/dL 7-18 MED[facility] ([facility]) Creatinine For GFR 0.96 mg/dL 0.70-1.30 [facility] ([facility]) Glomerular Filtration Rate Laboratory test result MED[facility] ([facility]) <content>Units are mL/min/1.73 m2</content>
<content></content>
<content>Chronic Kidney Disease Staging per NKF:</content>
<content></content>
<content>Stage I & II GFR >=60 Normal to Mildly Decreased</content>
<content>Stage III GFR 30- 59 Moderately Decreased</content>
<content>Stage IV GFR 15-29 Severely Decreased</content>
<content>Stage V GFR <15 Very Little GFR Left</content>
<content>ESRD GFR <15 on [employer]PPLY [employer]INEER</content>
<content></content> Sodium Level 137 meq/L 136-145 MED[facility] ([facility]) Chloride Level 104 meq/L 98-107 [facility] ([facility]) Potassium Serum 4.3 meq/L 3.5-5.1 [facility] ([facility]) Carbon Dioxide Level 28 meq/L 21-32 [facility] ([facility]) Anion Gap 5 meq/L 8-16 [facility] ([facility]) Calcium Level 8.6 mg/dL 8.5-10.1 [facility] ([facility]) ID Date Data Source [id number] 09/24/2020 02:54:00 PM EST MEDENT ([facility]) Name Value Range Interpretation Code Description Data Whit rce(s) Supporting Document(s) Laboratory test finding (navigational concept) 235 pg/mL 15-65 [facility] ([facility]) Estradiol 83.5 pg/mL 7.6-42.6 MED[facility] ([facility]) Salo ECLIA methodology Performed at: - [facility] [address] [id number] [employer] Typewriter Operator Chief: Marlys Jin MD, Phone: [phone] Performed at: [facility] [id number] [employer] Operator Chief: Gladis Paul MD, Phone: [phone] ID Date Data Source [id number] 09/24/2020 02:54:00 PM EST MEDENT ([facility]) Name Value Range Interpretation Code Description Data Whit rce(s) Supporting Document(s) Thyrotropin [Units/volume] in Serum or Plasma 1.420 uIU/ML 0.358-3.74 0 MEDENT ([facility]) Thyroxine (T4) free [Mass/volume] in Serum or Plasma 1.26 ng/dL 0.76- 1.46 MED[facility] ([facility]) ID Date Data Source [id number] 09/20/2020 02:59:00 PM EST MEDENT ([facility]) Name Value Range Interpretation Code Description Data Whit rce(s) Supporting Document(s) Hemoglobin A1c/Hemoglobin.total in Blood 8.3 [facility] ([facility]) Glucose [Mass/volume] in Serum or Plasma 168 MEDENT ([facility]) Procedure Social History Code Duration Value Status Description Data Source(s ) Smoking 07/22/2021 12:00:00 AM EDT Patient is a former smoker completed Patient is a former smoker MED[facility] ([facility] ) Smoking 05/29/2021 12:00:00 AM EDT Patient is a former smoker completed Patient is a former smoker MEDENT ([facility], ) Smoking 04/15/2021 12:00:00 AM EDT Never smoker completed Never s moker [facility] ([facility]) Alcohol intake 03/06/2021 12:00:00 AM EDT Current non-d lauren of alcohol (finding) completed Current non-drinker of alcohol (finding) [facility] Tobacco use and exposure 03/06/2021 12:00:00 AM EDT Never used co mpleted Never used [facility] Cigarette pack-years 03/06/2021 12:00:00 AM EDT UNK completed [facility] Cigarettes smoked current (pack per day) - Reported 03/06/20 12:00:00 AM EDT [facility]K [facility] Smoking 03/06/2021 12:00:00 AM EDT Former smoker completed Former smoker [facility] Alcohol intake 02/19/2021 12:00:00 AM EDT Current non-d lauren of alcohol (finding) completed Current non-drinker of alcohol (finding) [facility] Alcohol intake 01/28/2021 12:00:00 AM EDT Current non-d lauren of alcohol (finding) completed Current non-drinker of alcohol (finding) [facility] Smoking 10/11/2020 12:00:00 AM EST Patient is a former smoker completed Patient is a former smoker [facility] ([facility]) Alcohol intake 10/10/2020 12:00:00 AM EST Current non-d lauren of alcohol (finding) completed Current non-drinker of alcohol (finding) [facility] Vital Signs ID Date Data Source [id number] Name Value Range Interpretation Code Description Data Source(s) Oxygen saturation in Arterial blood by Pulse oximetry 97 % 97 % [facility] ([facility]) Body mass index (BMI) [Ratio] 29.4 kg/m2 29.4 k g/m2 [facility] ([facility]) Body weight 205.25 [lb_av] 205.25 [lb_av] MEDEN T ([facility]) Systolic blood pressure 118 mm[Hg] 118 mm[Hg] M EDENT ([facility]) Diastolic blood pressure 64 mm[Hg] 64 mm[Hg] MEDENT ([facility]) Heart rate 91 /min 91 /min [facility] ([facility]) Body height 70 [in_i] 70 [in_i] MEDENT ([facility]) 5'10" Diastolic blood pressure 69 mm[Hg] 69 mm[Hg] JOVON ([facility]) Body height 72 [in_i] 72 [in_i] JOVON ([facility]) Body mass index (BMI) [Ratio] 30 kg/m2 30 kg/ m2 JOVON ([facility]) Systolic blood pressure 109 mm[Hg] 109 mm[Hg] A THENA ([facility]) Body weight 3538 [oz_av] 3538 [oz_av] JOVON ([facility]) Diastolic blood pressure 69 mm[Hg] 69 mm[Hg] JOVON ([facility]) Body height 72 [in_i] 72 [in_i] JOVON ([facility]) Body mass index (BMI) [Ratio] 30 kg/m2 30 kg/ m2 JOVON ([facility]) Systolic blood pressure 109 mm[Hg] 109 mm[Hg] A THENA ([facility]) Body weight 3538 [oz_av] 3538 [oz_av] JOVON ([facility]) Systolic blood pressure 110 mm[Hg] 110 mm[Hg] M TIAGO ([facility], ) Diastolic blood pressure 60 mm[Hg] 60 mm[Hg] [facility] ([facility], ) Heart rate 65 /min 65 /min [facility] ([facility], ) Oxygen saturation in Arterial blood by Pulse oximetry 97 % 97 % [facility] ([facility], ) Body height 71 [in_i] 71 [in_i] [facility] ([facility], ) 5'11" Body weight 223.00 [lb_av] 223.00 [lb_av] [facility] Body mass index (BMI) [Ratio] 31.1 kg/m2 31.1 k g/m2 [facility] ([facility], ) [place] body weight 172 [lb_av] 172 [lb_av] MEDEN T ([facility], ) Body weight 101.153 kg 101.153 kg [facility] ([facility], ) Body surface area Derived from formula 2.21 m2 2.21 m2 [facility] ([facility], ) Body weight 220.00 [lb_av] 220.00 [lb_av] MEDEN T ([facility], ) Systolic blood pressure 100 mm[Hg] 100 mm[Hg] M TIAGO ([facility], ) Diastolic blood pressure 70 mm[Hg] 70 mm[Hg] MEDENT ([facility]) Heart rate 70 /min 70 /min [facility] ([facility]) Oxygen saturation in Arterial blood by Pulse oximetry 95 % 95 % [facility] ([facility]) Room Air Body weight 99.792 kg 99.792 kg [facility] ([facility]) Oxygen saturation in Arterial blood by Pulse oximetry 97 % 97 % [facility] ([facility]) Room Air Heart rate 79 /min 79 /min [facility] ([facility], ) Body weight 100.246 kg 100.246 kg [facility] ([facility]) Body weight 221.00 [lb_av] 221.00 [lb_av] MED[facility] T [facility] [facility], ) Systolic blood pressure 108 mm[Hg] 108 mm[Hg] [facility] Diastolic blood pressure 70 mm[Hg] 70 mm[Hg] [facility], ) Heart rate 69 /min 69 /min [facility] Systolic blood pressure 115 mm[Hg] 115 mm[Hg] M EDENT ([facility]) Body temperature 97.7 [degF] 97.7 [degF] MEDENT ([facility]) Body height 70 [in_i] 70 [in_i] [facility] 5'10" Body weight 220.00 [lb_av] 220.00 [lb_av] MEDEN T ([facility]) Body mass index (BMI) [Ratio] 31.6 kg/m2 31.6 k g/m2 [facility] Oxygen saturation in Arterial blood by Pulse oximetry 92 % 92 % [facility] Diastolic blood pressure 75 mm[Hg] 75 mm[Hg] MEDENT ([facility]) Diastolic blood pressure 78 mm[Hg] 78 mm[Hg] ANSON ([facility]) Body height 72 [in_i] 72 [in_i] JOVON ([facility]) Body mass index (BMI) [Ratio] 30.1 kg/m2 30.1 k g/m2 JOVON ([facility]) Systolic blood pressure 128 mm[Hg] 128 mm[Hg] A THENA ([facility]) Body weight 3556 [oz_av] 3556 [oz_av] JOVON ([facility]) Diastolic blood pressure 78 mm[Hg] 78 mm[Hg] JOVON ([facility]) Body height 72 [in_i] 72 [in_i] JOVON ([facility]) Body mass index (BMI) [Ratio] 30.1 kg/m2 30.1 k g/m2 JOVON ([facility]) Systolic blood pressure 128 mm[Hg] 128 mm[Hg] A THENA ([facility]) Body weight 3556 [oz_av] 3556 [oz_av] JOVON ([facility]) Body height 72 [in_i] 72 [in_i] JOVON ([facility]) Body mass index (BMI) [Ratio] 30.1 kg/m2 30.1 k g/m2 JOVON ([facility]) Systolic blood pressure 128 mm[Hg] 128 mm[Hg] A THENA ([facility]) Body weight 3556 [oz_av] 3556 [oz_av] JOVON ([facility]) Diastolic blood pressure 78 mm[Hg] 78 mm[Hg] JOVON ([facility]) Diastolic blood pressure 66 mm[Hg] 66 mm[Hg] JOVON ([facility]) Body height 72 [in_i] 72 [in_i] JOVON ([facility]) Body mass index (BMI) [Ratio] 30.4 kg/m2 30.4 k g/m2 JOVON ([facility]) Systolic blood pressure 101 mm[Hg] 101 mm[Hg] A THENA ([facility]) Body weight 3590.4 [oz_av] 3590.4 [oz_av] ATHEN A ([facility]) Diastolic blood pressure 66 mm[Hg] 66 mm[Hg] JOVON ([facility]) Body height 72 [in_i] 72 [in_i] JOVON ([facility]) Body mass index (BMI) [Ratio] 30.4 kg/m2 30.4 k g/m2 JOVON ([facility]) Systolic blood pressure 101 mm[Hg] 101 mm[Hg] A THENA ([facility]) Body weight 3590.4 [oz_av] 3590.4 [oz_av] ATHEN A ([facility]) Diastolic blood pressure 66 mm[Hg] 66 mm[Hg] JOVON ([facility]) Body height 72 [in_i] 72 [in_i] JOVON ([facility]) Body mass index (BMI) [Ratio] 30.4 kg/m2 30.4 k g/m2 JOVON ([facility]) Systolic blood pressure 101 mm[Hg] 101 mm[Hg] A DEVENA ([facility]) Body weight 3590.4 [oz_av] 3590.4 [oz_av] ATHEN A ([facility]) Diastolic blood pressure 66 mm[Hg] 66 mm[Hg] JOVON ([facility]) Body height 72 [in_i] 72 [in_i] JOOVN ([facility]) Body mass index (BMI) [Ratio] 30.4 kg/m2 30.4 k g/m2 JOVON ([facility]) Systolic blood pressure 101 mm[Hg] 101 mm[Hg] A DEVENA ([facility]) Body weight 3590.4 [oz_av] 3590.4 [oz_av] ATHEN A ([facility]) Systolic blood pressure 112 mm[Hg] 112 mm[Hg] A THENA ([facility]) Diastolic blood pressure 72 mm[Hg] 72 mm[Hg] JOVON ([facility]) Body height 72 [in_i] 72 [in_i] JOVON ([facility]) Body mass index (BMI) [Ratio] 30.8 kg/m2 30.8 k g/m2 JOVON ([facility]) Body weight 3636 [oz_av] 3636 [oz_av] JOVON ([facility]) Body weight 3636 [oz_av] 3636 [oz_av] JOVON ([facility]) Diastolic blood pressure 72 mm[Hg] 72 mm[Hg] JOVON ([facility]) Body height 72 [in_i] 72 [in_i] JOVON ([facility]) Body mass index (BMI) [Ratio] 30.8 kg/m2 30.8 k g/m2 JOVON ([facility]) Systolic blood pressure 112 mm[Hg] 112 mm[Hg] [facility] Diastolic blood pressure 72 mm[Hg] 72 mm[Hg] JOVON ([facility]) Body height 72 [in_i] 72 [in_i] JOVON ([facility]) Body mass index (BMI) [Ratio] 30.8 kg/m2 30.8 k g/m2 JOVON ([facility]) Systolic blood pressure 112 mm[Hg] 112 mm[Hg] [facility] Body weight 3636 [oz_av] 3636 [oz_av] JOVON ([facility]) Diastolic blood pressure 72 mm[Hg] 72 mm[Hg] JOVON ([facility]) Body height 72 [in_i] 72 [in_i] JOVON ([facility]) Body mass index (BMI) [Ratio] 30.8 kg/m2 30.8 k g/m2 JOVON ([facility]) Systolic blood pressure 112 mm[Hg] 112 mm[Hg] A THENA ([facility]) Body weight 3636 [oz_av] 3636 [oz_av] JOVON ([facility]) Diastolic blood pressure 72 mm[Hg] 72 mm[Hg] JOVON ([facility]) Body height 72 [in_i] 72 [in_i] JOVON ([facility]) Body mass index (BMI) [Ratio] 30.8 kg/m2 30.8 k g/m2 JOVON ([facility]) Systolic blood pressure 112 mm[Hg] 112 mm[Hg] A THENA ([facility]) Body weight 3636 [oz_av] 3636 [oz_av] JOVON ([facility]) Systolic blood pressure 132 mm[Hg] 132 mm[Hg] A THENA ([facility]) Body weight 3606.4 [oz_av] 3606.4 [oz_av] ATHEN A ([facility]) Diastolic blood pressure 80 mm[Hg] 80 mm[Hg] JOVON ([facility]) Body height 72 [in_i] 72 [in_i] JOVON ([facility]) Body mass index (BMI) [Ratio] 30.6 kg/m2 30.6 k g/m2 JOVON ([facility]) Diastolic blood pressure 80 mm[Hg] 80 mm[Hg] JOVON ([facility]) Body height 72 [in_i] 72 [in_i] JOVON ([facility]) Body mass index (BMI) [Ratio] 30.6 kg/m2 30.6 k g/m2 JOVON ([facility]) Systolic blood pressure 132 mm[Hg] 132 mm[Hg] A OMID ([facility]) Body weight 3606.4 [oz_av] 3606.4 [oz_av] ATHEN A ([facility]) Diastolic blood pressure 80 mm[Hg] 80 mm[Hg] JOVON ([facility]) Body height 72 [in_i] 72 [in_i] JOVON ([facility]) Body mass index (BMI) [Ratio] 30.6 kg/m2 30.6 k g/m2 JOVON ([facility]) Systolic blood pressure 132 mm[Hg] 132 mm[Hg] A DEVENA ([facility]) Body weight 3606.4 [oz_av] 3606.4 [oz_av] ATHEN A ([facility]) Diastolic blood pressure 80 mm[Hg] 80 mm[Hg] JOVON ([facility]) Body height 72 [in_i] 72 [in_i] JOVNO ([facility]) Body mass index (BMI) [Ratio] 30.6 kg/m2 30.6 k g/m2 JOVON ([facility]) Systolic blood pressure 132 mm[Hg] 132 mm[Hg] A DEVENA ([facility]) Body weight 3606.4 [oz_av] 3606.4 [oz_av] ATHEN A ([facility]) Diastolic blood pressure 80 mm[Hg] 80 mm[Hg] JOVON ([facility]) Body height 72 [in_i] 72 [in_i] JOVON ([facility]) Body mass index (BMI) [Ratio] 30.6 kg/m2 30.6 k g/m2 JOVON ([facility]) Systolic blood pressure 132 mm[Hg] 132 mm[Hg] A DEVENA ([facility]) Body weight 3606.4 [oz_av] 3606.4 [oz_av] ATHEN A ([facility]) Diastolic blood pressure 80 mm[Hg] 80 mm[Hg] JOVON ([facility]) Body height 72 [in_i] 72 [in_i] JOVON ([facility]) Body mass index (BMI) [Ratio] 30.6 kg/m2 30.6 k g/m2 JOVON ([facility]) Systolic blood pressure 132 mm[Hg] 132 mm[Hg] A THENA ([facility]) Body weight 3606.4 [oz_av] 3606.4 [oz_av] ATHEN A ([facility]) Body mass index (BMI) [Ratio] 31.9 kg/m2 31.9 k g/m2 MEDENT ([facility] ) Oxygen saturation in Arterial blood by Pulse oximetry 93 % 93 % MEDENT ([facility] ) Heart rate 72 /min 72 /min MEDENT ([facility] ) Body height 70 [in_i] 70 [in_i] MEDENT ([facility] ) 5'10" Body weight 222.25 [lb_av] 222.25 [lb_av] MEDEN T ([facility] ) Systolic blood pressure 112 mm[Hg] 112 mm[Hg] M EDENT ([facility] ) Diastolic blood pressure 68 mm[Hg] 68 mm[Hg] MEDENT ([facility] ) Body temperature 97.3 [degF] 97.3 [degF] MEDENT ([facility] ) Diastolic blood pressure 68 mm[Hg] 68 mm[Hg] JOVON ([facility]) Body height 72 [in_i] 72 [in_i] JOVON ([facility]) Body mass index (BMI) [Ratio] 30.5 kg/m2 30.5 k g/m2 JOVON ([facility]) Systolic blood pressure 100 mm[Hg] 100 mm[Hg] A DEVENA ([facility]) Body weight 3593.6 [oz_av] 3593.6 [oz_av] ATHEN A ([facility]) Diastolic blood pressure 68 mm[Hg] 68 mm[Hg] JOVON ([facility]) Body height 72 [in_i] 72 [in_i] JOVON ([facility]) Body mass index (BMI) [Ratio] 30.5 kg/m2 30.5 k g/m2 JOVON ([facility]) Systolic blood pressure 100 mm[Hg] 100 mm[Hg] A THENA ([facility]) Body weight 3593.6 [oz_av] 3593.6 [oz_av] ATHEN A ([facility]) Diastolic blood pressure 68 mm[Hg] 68 mm[Hg] JOVON ([facility]) Body height 72 [in_i] 72 [in_i] JOVON ([facility]) Body mass index (BMI) [Ratio] 30.5 kg/m2 30.5 k g/m2 JOVON ([facility]) Systolic blood pressure 100 mm[Hg] 100 mm[Hg] A THENA ([facility]) Body weight 3593.6 [oz_av] 3593.6 [oz_av] ATHEN A ([facility]) Diastolic blood pressure 68 mm[Hg] 68 mm[Hg] JOVON ([facility]) Body height 72 [in_i] 72 [in_i] JOVON ([facility]) Body mass index (BMI) [Ratio] 30.5 kg/m2 30.5 k g/m2 JOVON ([facility]) Systolic blood pressure 100 mm[Hg] 100 mm[Hg] A THENA ([facility]) Body weight 3593.6 [oz_av] 3593.6 [oz_av] ATHEN A ([facility]) Diastolic blood pressure 68 mm[Hg] 68 mm[Hg] JOVON ([facility]) Body height 72 [in_i] 72 [in_i] JOVON ([facility]) Body mass index (BMI) [Ratio] 30.5 kg/m2 30.5 k g/m2 JOVON ([facility]) Systolic blood pressure 100 mm[Hg] 100 mm[Hg] A THENA ([facility]) Body weight 3593.6 [oz_av] 3593.6 [oz_av] ATHEN A ([facility]) Diastolic blood pressure 68 mm[Hg] 68 mm[Hg] JOVON ([facility]) Body height 72 [in_i] 72 [in_i] JOVON ([facility]) Body mass index (BMI) [Ratio] 30.5 kg/m2 30.5 k g/m2 JOVON ([facility]) Systolic blood pressure 100 mm[Hg] 100 mm[Hg] A DEVENA ([facility]) Body weight 3593.6 [oz_av] 3593.6 [oz_av] ATHEN A ([facility]) Diastolic blood pressure 68 mm[Hg] 68 mm[Hg] JOVON ([facility]) Body height 72 [in_i] 72 [in_i] JOVON ([facility]) Body mass index (BMI) [Ratio] 30.5 kg/m2 30.5 k g/m2 JOVON ([facility]) Systolic blood pressure 100 mm[Hg] 100 mm[Hg] A DEVENA ([facility]) Body weight 3593.6 [oz_av] 3593.6 [oz_av] ATHEN A ([facility]) Body mass index (BMI) [Ratio] 29.3 kg/m2 29.3 k g/m2 MEDENT ([facility] Body weight 216.00 [lb_av] 216.00 [lb_av] MEDEN T ([facility] Systolic blood pressure 120 mm[Hg] 120 mm[Hg] M EDENT ([facility] Diastolic blood pressure 60 mm[Hg] 60 mm[Hg] MEDENT ([facility] Heart rate 58 /min 58 /min MEDENT ([facility] Body height 72 [in_i] 72 [in_i] MEDENT ([facility] 6'0" Body height 71 [in_i] 71 [in_i] MEDENT ([facility] 5'11" Body weight 216.00 [lb_av] 216.00 [lb_av] MEDEN T ([facility]) Systolic blood pressure 133 mm[Hg] 133 mm[Hg] M EDENT ([facility]) Diastolic blood pressure 79 mm[Hg] 79 mm[Hg] MEDENT ([facility]) Heart rate 69 /min 69 /min [facility] ([facility]) Body mass index (BMI) [Ratio] 30.1 kg/m2 30.1 k g/m2 MEDENT ([facility]) Body weight 97.978 kg 97.978 kg MEDENT ([facility]) Body temperature 97.0 [degF] 97.0 [degF] MEDENT ([facility]) Body height 71 [in_i] 71 [in_i] MEDENT ([facility]) 5'11" Body mass index (BMI) [Ratio] 29.4 kg/m2 29.4 k g/m2 MEDENT ([facility], [facility]) Systolic blood pressure 100 mm[Hg] 100 mm[Hg] M EDENT ([facility], [facility]) Diastolic blood pressure 64 mm[Hg] 64 mm[Hg] MEDENT ([facility]) Heart rate 73 /min 73 /min MEDENT ([facility], [facility]) Respiratory rate 18 /min 18 /min [facility]) Oxygen saturation in Arterial blood by Pulse oximetry 100 % 100 % [facility] ([facility], [facility]) Body temperature 97.9 [degF] 97.9 [degF] [facility]) Body weight 211.00 [lb_av] 211.00 [lb_av] MEDEN T ([facility], [facility]) Systolic blood pressure 128 mm[Hg] 128 mm[Hg] M EDENT ([facility]) Diastolic blood pressure 62 mm[Hg] 62 mm[Hg] MEDENT ([facility]) Heart rate 70 /min 70 /min MEDENT ([facility] ) Body temperature 97.0 [degF] 97.0 [degF] MEDENT ([facility] ) Body height 70 [in_i] 70 [in_i] MEDENT ([facility] ) 5'10" Body weight 211.00 [lb_av] 211.00 [lb_av] MEDEN T ([facility] ) Body mass index (BMI) [Ratio] 30.3 kg/m2 30.3 k g/m2 MEDENT ([facility] ) Oxygen saturation in Arterial blood by Pulse oximetry 99 % 99 % MEDENT ([facility] ) Systolic blood pressure 140 mm[Hg] 140 mm[Hg] M EDENT ([facility] ) Diastolic blood pressure 64 mm[Hg] 64 mm[Hg] MEDENT ([facility] ) Heart rate 73 /min 73 /min MEDENT ([facility] ) Body weight 206.31 [lb_av] 206.31 [lb_av] MEDEN T ([facility] ) Body mass index (BMI) [Ratio] 29.6 kg/m2 29.6 k g/m2 MEDENT ([facility] ) Oxygen saturation in Arterial blood by Pulse oximetry 99 % 99 % MEDENT ([facility] ) Body temperature 96.8 [degF] 96.8 [degF] MEDENT ([facility] ) Body height 70 [in_i] 70 [in_i] MEDENT ([facility] ) 5'10" Diastolic blood pressure 80 mm[Hg] 80 mm[Hg] JOVON ([facility]) Diastolic blood pressure 80 mm[Hg] 80 mm[Hg] JOVON ([facility]) Body height 72 [in_i] 72 [in_i] JOVON ([facility]) Body mass index (BMI) [Ratio] 28.2 kg/m2 28.2 k g/m2 JOVON ([facility]) Systolic blood pressure 132 mm[Hg] 132 mm[Hg] A THENA ([facility]) Body weight 3332 [oz_av] 3332 [oz_av] JOVON ([facility]) Diastolic blood pressure 80 mm[Hg] 80 mm[Hg] JOVON ([facility]) Body height 72 [in_i] 72 [in_i] JOVON ([facility]) Body mass index (BMI) [Ratio] 28.2 kg/m2 28.2 k g/m2 JOVON ([facility]) Systolic blood pressure 132 mm[Hg] 132 mm[Hg] [facility] Body weight 3332 [oz_av] 3332 [oz_av] JOVON ([facility]) Body height 72 [in_i] 72 [in_i] JOVON ([facility]) Body mass index (BMI) [Ratio] 28.2 kg/m2 28.2 k g/m2 JOVON ([facility]) Systolic blood pressure 132 mm[Hg] 132 mm[Hg] [facility] Body weight 3332 [oz_av] 3332 [oz_av] JOVON ([facility]) Diastolic blood pressure 80 mm[Hg] 80 mm[Hg] JOVON ([facility]) Body height 72 [in_i] 72 [in_i] JOVON ([facility]) Body mass index (BMI) [Ratio] 28.2 kg/m2 28.2 k g/m2 JOVON ([facility]) Systolic blood pressure 132 mm[Hg] 132 mm[Hg] [facility] Body weight 3332 [oz_av] 3332 [oz_av] JOVON ([facility]) Diastolic blood pressure 80 mm[Hg] 80 mm[Hg] JOVON ([facility]) Body height 72 [in_i] 72 [in_i] JOVON ([facility]) Body mass index (BMI) [Ratio] 28.2 kg/m2 28.2 k g/m2 JOVON ([facility]) Systolic blood pressure 132 mm[Hg] 132 mm[Hg] A THENA ([facility]) Body weight 3332 [oz_av] 3332 [oz_av] JOVON ([facility]) Diastolic blood pressure 80 mm[Hg] 80 mm[Hg] JOVON ([facility]) Body height 72 [in_i] 72 [in_i] JOVON ([facility]) Body mass index (BMI) [Ratio] 28.2 kg/m2 28.2 k g/m2 JOVON ([facility]) Systolic blood pressure 132 mm[Hg] 132 mm[Hg] A THENA ([facility]) Body weight 3332 [oz_av] 3332 [oz_av] JOVON ([facility]) Diastolic blood pressure 80 mm[Hg] 80 mm[Hg] JOVON ([facility]) Body height 72 [in_i] 72 [in_i] JOVON ([facility]) Body mass index (BMI) [Ratio] 28.2 kg/m2 28.2 k g/m2 JOVON ([facility]) Systolic blood pressure 132 mm[Hg] 132 mm[Hg] [facility] Body weight 3332 [oz_av] 3332 [oz_av] JOVON ([facility]) Diastolic blood pressure 80 mm[Hg] 80 mm[Hg] JOVON ([facility]) Body height 72 [in_i] 72 [in_i] JOVON ([facility]) Body mass index (BMI) [Ratio] 28.2 kg/m2 28.2 k g/m2 JOVON ([facility]) Systolic blood pressure 132 mm[Hg] 132 mm[Hg] A THENA ([facility]) Body weight 3332 [oz_av] 3332 [oz_av] JOVON ([facility]) Diastolic blood pressure 80 mm[Hg] 80 mm[Hg] JOVON ([facility]) Body height 72 [in_i] 72 [in_i] JOVON ([facility]) Body mass index (BMI) [Ratio] 28.2 kg/m2 28.2 k g/m2 JOVON ([facility]) Systolic blood pressure 132 mm[Hg] 132 mm[Hg] A THENA ([facility]) Body weight 3332 [oz_av] 3332 [oz_av] JOVON ([facility]) Diastolic blood pressure 80 mm[Hg] 80 mm[Hg] JOVON ([facility]) Body height 72 [in_i] 72 [in_i] JOVON ([facility]) Body mass index (BMI) [Ratio] 28.2 kg/m2 28.2 k g/m2 JOVON ([facility]) Systolic blood pressure 132 mm[Hg] 132 mm[Hg] A THENA ([facility]) Body weight 3332 [oz_av] 3332 [oz_av] JOVON ([facility]) ID Date Data Source [id number] 05/10/2021 03:54:54 PM EDT [facility] Name Value Range Interpretation Code Description Data Source(s) PREFERRED NAME [facility] ID Date Data Source [id number] 02/26/2021 10:26:56 AM EDT [facility] Name Value Range Interpretation Code Description Data Source(s) WEIGHT RECORDED 225 lb 225 lb [facility] Body height Measured 70 in 70 in [facility] PREFERRED NAME [facility] ID Date Data Source [id number] 02/13/2021 01:28:52 PM EDT [facility] Name Value Range Interpretation Code Description Data Source(s) PREFERRED NAME [facility] PREFERRED NAME [facility] ID Date Data Source [id number] 02/05/2021 09:37:07 AM EDT [facility] Name Value Range Interpretation Code Description Data Source(s) WEIGHT RECORDED 227 lb 227 lb [facility] Body height Measured 70 in 70 in [facility] PREFERRED NAME [facility] PREFERRED NAME [facility] ID Date Data Source [id number] 12/12/2020 10:43:24 AM EDT [facility] Name Value Range Interpretation Code Description Data Source(s) PREFERRED NAME [facility] ID Date Data Source [id number] 11/22/2020 03:07:27 PM EST [facility] Name Value Range Interpretation Code Description Data Source(s) PREFERRED NAME [facility] ID Date Data Source [id number] 12/07/2020 10:28:23 AM EDT [facility] Name Value Range Interpretation Code Description Data Source(s) PREFERRED NAME [facility] Patient Treatment Plan of Care Planned Activity Planned Date Details Description Data Source (s) olodaterol 0.0025 MG/ACTUAT / tiotropium 0.0025 MG/ACT UAT Metered Dose Inhaler 07/08/2021 12:00:00 AM EDT [facility]) Prednisone 10 MG Oral Tablet 07/07/2021 12:00:00 AM EDT [facility] ([facility]) Levofloxacin 750 MG Oral Tablet [Levaquin] 07/07/2021 12:00:00 AM E DT [facility] ([facility]) Estradiol 2 MG Oral Tablet 05/20/2021 12:00:00 AM EDT [facility] ([facility]) tramadol hydrochloride 50 MG Oral Tablet 02/20/2021 12:00:[address] [facility] Docusate Sodium 100 MG Oral Capsule 02/20/2021 12:00:[address] [facility] Acetaminophen 325 MG Oral Tablet 02/20/2021 12:00:[address] [facility] tramadol hydrochloride 50 MG Oral Tablet 02/19/2021 01:06:[address] [facility] ondansetron (ZOFRAN) injection 4 mg 02/19/2021 01:02:[address] [facility] albuterol (PROVENTIL HFA) inhaler 2 puff 02/19/2021 12:55:[address] [facility] Albuterol Sulfate HFA 108 (90 Base) MCG/ ACT Inhalation Aerosol Solution (PROVENTIL HFA) 01/08/2021 12:00:[address] [facility] Estradiol 2 MG Oral Tablet 11/14/2020 12:00:00 AM EST [facility] ([facility]) Estradiol 2 MG Oral Tablet 10/12/2020 12:00:00 AM EST [facility] ([facility]) Estradiol 2 MG Oral Tablet 07/13/2020 12:00:00 AM EDT [facility] ([facility]) Estradiol 2 MG Oral Tablet 07/13/2020 12:00:00 AM EDT [facility] ([facility]) Progesterone 100 MG Oral Capsule [Prometrium] 05/21/2020 12:00:00 A M EDT [facility] ([facility]) Finasteride 5 MG Oral Tablet 04/23/2020 12:00:00 AM EDT [facility] ([facility]) tramadol hydrochloride 50 MG Oral Tablet [facility] ([facility]) Progesterone 100 MG Oral Capsule [facility] ([facility]) Prednisone 20 MG Oral Tablet [facility] ([facility]) OneTouch Ultra Blue Test Strip USE DIRECTED FOUR TIMES A DAY [facility] ([facility]) Metoprolol Tartrate 25 MG Oral Tablet [facility] ([facility]) 1 ML Leuprolide Acetate 3.75 MG/ML Prefilled Sy[facility]] [facility] Lisinopril 2.5 MG Oral Tablet [facility] ([facility]) liothyronine sodium 0.025 MG Oral Tablet [facility] ([facility]) Levothyroxine Sodium 0.025 MG Oral Tablet [Levo-T] [facility] ([facility]) Finasteride 5 MG Oral Tablet [facility] ([facility]) doxycycline hyclate 100 MG Oral Capsule [facility] ([facility]) Docusate Sodium 100 MG Oral Capsule [facility] ([facility]) Clarithromycin 500 MG Oral Tablet [facility] ([facility]) Azithromycin 250 MG Oral Tablet [facility] ([facility]) ammonium lactate 120 MG/ML Topical Cream [facility] ([facility]) tramadol hydrochloride 50 MG Oral Tablet JOVON ([facility]) olodaterol 0.0025 MG/ACTUAT / tiotropium 0.0025 MG/ACT UAT Metered Dose Inhaler JOVON ([facility]) Progesterone 100 MG Oral Capsule JOVON ([facility]) Prednisone 20 MG Oral Tablet JOVON ([facility]) OneTouch Ultra Blue Test Strip USE DIRECTED FOUR TIMES A DAY JOVON ([facility]) Metoprolol Tartrate 25 MG Oral Tablet JOVON ([facility]) 1 ML Leuprolide Acetate 3.75 MG/ML Prefilled Syringe [Lupron] JOVON [facility]) liothyronine sodium 0.025 MG Oral Tablet JOVON ([facility]) Levothyroxine Sodium 0.025 MG Oral Tablet [Levo-T] JOVON ([facility]) Finasteride 5 MG Oral Tablet JOVON ([facility]) doxycycline hyclate 100 MG Oral Capsule JOVON ([facility]) Docusate Sodium 100 MG Oral Capsule JOVON ([facility]) Clarithromycin 500 MG Oral Tablet JOVON ([facility]) Azithromycin 250 MG Oral Tablet JOVON ([facility]) ammonium lactate 120 MG/ML Topical Cream JOVON ([facility]) tramadol hydrochloride 50 MG Oral Tablet JOVON ([facility]) Progesterone 100 MG Oral Capsule JOVON ([facility]) Prednisone 20 MG Oral Tablet JOVON ([facility]) liothyronine sodium 0.025 MG Oral Tablet JOVON ([facility]) Levothyroxine Sodium 0.025 MG Oral Tablet [Levo-T] JOVON ([facility]) Finasteride 5 MG Oral Tablet JOVON ([facility]) doxycycline hyclate 100 MG Oral Capsule JOVON ([facility]) Docusate Sodium 100 MG Oral Capsule JOVON ([facility]) Clarithromycin 500 MG Oral Tablet JOVON ([facility]) Progesterone 100 MG Oral Capsule JOVON ([facility]) Prednisone 20 MG Oral Tablet JOVON ([facility]) liothyronine sodium 0.025 MG Oral Tablet JOVON ([facility]) Levothyroxine Sodium 0.025 MG Oral Tablet [Levo-T] JOVON ([facility]) Finasteride 5 MG Oral Tablet JOVON ([facility]) doxycycline hyclate 100 MG Oral Capsule JOVON ([facility]) Clarithromycin 500 MG Oral Tablet JOVON ([facility]) Progesterone 100 MG Oral Capsule JOVON ([facility]) Prednisone 20 MG Oral Tablet JOVON ([facility]) liothyronine sodium 0.025 MG Oral Tablet JOVON ([facility]) Levothyroxine Sodium 0.025 MG Oral Tablet [Levo-T] JOVON ([facility]) Finasteride 5 MG Oral Tablet JOVON ([facility]) doxycycline hyclate 100 MG Oral Capsule JOVON ([facility]) Clarithromycin 500 MG Oral Tablet JOVON ([facility]) Prednisone 20 MG Oral Tablet JOVON ([facility]) liothyronine sodium 0.025 MG Oral Tablet JOVON ([facility]) Levothyroxine Sodium 0.025 MG Oral Tablet [Levo-T] JOVON ([facility]) Finasteride 5 MG Oral Tablet JOVON ([facility]) doxycycline hyclate 100 MG Oral Capsule JOVON ([facility]) Finasteride 5 MG Oral Tablet [employer] ([facility]) Progesterone 100 MG Oral Capsule [employer] ([facility]) Prednisone 20 MG Oral Tablet JOVON ([facility]) liothyronine sodium 0.025 MG Oral Tablet JOVON ([facility]) Levothyroxine Sodium 0.025 MG Oral Tablet [Levo-T] JOVON ([facility]) Finasteride 5 MG Oral Tablet JOVON ([facility]) doxycycline hyclate 100 MG Oral Capsule JOVON ([facility]) Estradiol 2 MG Oral Tablet N [employer] ([facility])
[2021-08-28] MEDS ORDERED: LEVO137T2 (15:08)
[2021-08-28] MEDS ORDERED: BACTRIM 160MG/800MG DS TAB PO ONE (18:55)
[2021-08-28] MEDS ORDERED: BACITRACIN OINTMENT 30GM TUBE TOP ONE (18:55)
[2021-08-28] MEDS ORDERED: BACT800T5 PO (19:14)
[2021-08-28] MEDS ORDERED: BACI500O21 TOP (19:14)
--- OUTSIDE RECORDS SUMMARY | 2021-08-28 19:38 | CCD ---
Author Author [facility] Organization [facility] Address Unknown Phone Unavailable Care Team Providers Care Youth Development Professional Name Role Phone Shelton, Celena Unavailable Unavailable [...] BASS Unavailable Unavailable DestinyAlexandr MD Unavailable Unavailable DestinyAlexandr [...] Nelsonolavsky Graciela MD Unavailable Unavailable Veley, Lucy VIBRATION TECHNICIAN Unavailable Unavailable Veley, Lucy VIBRATION TECHNICIAN Unavailable Unavailable Veley, Lucy VIBRATION TECHNICIAN Unavailable Unavailable Veley, Lucy VIBRATION TECHNICIAN Unavailable Unavailable Veley, Lucy VIBRATION TECHNICIAN Unavailable Unavailable Veley, Lucy VIBRATION TECHNICIAN Unavailable Unavailable Veley, Lucy VIBRATION TECHNICIAN Unavailable Unavailable Veley, Lucy VIBRATION TECHNICIAN Unavailable Unavailable Veley, Lucy VIBRATION TECHNICIAN Unavailable Unavailable Veley, Lucy VIBRATION TECHNICIAN Unavailable Unavailable Veley, Lucy VIBRATION TECHNICIAN Unavailable Unavailable Veley, Lucy VIBRATION TECHNICIAN Unavailable Unavailable Veley, Lucy VIBRATION TECHNICIAN Unavailable Unavailable Veley, Lucy VIBRATION TECHNICIAN Unavailable Unavailable Veley, Lucy VIBRATION TECHNICIAN Unavailable Unavailable Veley, Lucy VIBRATION TECHNICIAN Unavailable Unavailable Veley, Lucy VIBRATION TECHNICIAN Unavailable Unavailable Veley, Lucy VIBRATION TECHNICIAN Unavailable Unavailable Veley, Lucy VIBRATION TECHNICIAN Unavailable Unavailable Veley, Lucy VIBRATION TECHNICIAN Unavailable Unavailable Veley, Lucy VIBRATION TECHNICIAN Unavailable Unavailable Veley, Lucy VIBRATION TECHNICIAN Unavailable Unavailable Veley, Lucy VIBRATION TECHNICIAN Unavailable Unavailable Veley, Lucy VIBRATION TECHNICIAN Unavailable Unavailable Veley, Lucy VIBRATION TECHNICIAN Unavailable Unavailable Veley, Lucy VIBRATION TECHNICIAN Unavailable Unavailable Veley, Lucy VIBRATION TECHNICIAN Unavailable Unavailable Veley, Lucy VIBRATION TECHNICIAN Unavailable Unavailable Veley, Lucy VIBRATION TECHNICIAN Unavailable Unavailable Veley, Lucy VIBRATION TECHNICIAN Unavailable Unavailable Veley, Lucy VIBRATION TECHNICIAN Unavailable Unavailable Veley, Lucy VIBRATION TECHNICIAN Unavailable Unavailable Veley, Lucy VIBRATION TECHNICIAN Unavailable Unavailable Veley, Lucy VIBRATION TECHNICIAN Unavailable Unavailable Veley, Lucy VIBRATION TECHNICIAN Unavailable Unavailable Joanne ARGUELLES DPM Unavailable Unavailable [...] DOLORES PA Unavailable Unavailable Cassidy, E Charisse VIBRATION TECHNICIAN Unavailable Unavailable Cassidy, E Charisse VIBRATION TECHNICIAN Unavailable Unavailable Cassidy, E Charisse VIBRATION TECHNICIAN Unavailable Unavailable Cassidy, E Charisse VIBRATION TECHNICIAN Unavailable Unavailable Cassidy, E Charisse VIBRATION TECHNICIAN Unavailable Unavailable Cassidy, E Charisse VIBRATION TECHNICIAN Unavailable Unavailable Cassidy, E Charisse VIBRATION TECHNICIAN Unavailable Unavailable Cassidy, E Charisse VIBRATION TECHNICIAN Unavailable Unavailable Cassidy, E Charisse VIBRATION TECHNICIAN Unavailable Unavailable Cassidy, E Charisse VIBRATION TECHNICIAN Unavailable Unavailable Cassidy, E Charisse VIBRATION TECHNICIAN Unavailable Unavailable Cassidy, E Charisse VIBRATION TECHNICIAN Unavailable Unavailable Cassidy, E Charisse VIBRATION TECHNICIAN Unavailable Unavailable Cassidy, E Charisse VIBRATION TECHNICIAN Unavailable Unavailable Cassidy, E Charisse VIBRATION TECHNICIAN Unavailable Unavailable Cassidy, E Charisse VIBRATION TECHNICIAN Unavailable Unavailable Cassidy, E Charisse VIBRATION TECHNICIAN Unavailable Unavailable Cassidy, E Charisse VIBRATION TECHNICIAN Unavailable Unavailable Cassidy, E Charisse VIBRATION TECHNICIAN Unavailable Unavailable Cassidy, E Charisse VIBRATION TECHNICIAN Unavailable Unavailable Cassidy, E Charisse VIBRATION TECHNICIAN Unavailable Unavailable Cassidy, E Charisse VIBRATION TECHNICIAN Unavailable Unavailable Cassidy, E Charisse VIBRATION TECHNICIAN Unavailable Unavailable PRYBYLOWSKI, E TITA PA Unavailable [...] Evelina BASS Unavailable Unavailable ASHLEY, AMMON MOLLY COOLER SERVICER-C Unavailable Unavailable ASHLEY, AMMON MOLLY COOLER SERVICER-C Unavailable Unavailable ASHLEY, AMMON MOLLY COOLER SERVICER-C Unavailable Unavailable ASHLEY, AMMON MOLLY COOLER SERVICER-C Unavailable Unavailable ASHLEY, AMMON MOLLY COOLER SERVICER-C Unavailable Unavailable ASHLEY, AMMON MOLLY COOLER SERVICER-C Unavailable Unavailable ASHLEY, AMMON MOLLY COOLER SERVICER-C Unavailable Unavailable ASHLEY, AMMON MOLLY COOLER SERVICER-C Unavailable Unavailable ASHLEY, AMMON MOLLY COOLER SERVICER-C Unavailable Unavailable ASHLEY, AMMON MOLLY COOLER SERVICER-C Unavailable Unavailable ASHLEY, AMMON MOLLY COOLER SERVICER-C Unavailable Unavailable ASHLEY, AMMON MOLLY COOLER SERVICER-C Unavailable Unavailable ASHLEY, AMMON MOLLY COOLER SERVICER-C Unavailable Unavailable ASHLEY, AMMON MOLLY COOLER SERVICER-C Unavailable Unavailable ASHLEY, AMMON MLOLY COOLER SERVICER-C Unavailable Unavailable ASHLEY, AMMON MOLLY COOLER SERVICER-C Unavailable Unavailable ASHLEY, AMMON MOLLY COOLER SERVICER-C Unavailable Unavailable Real Rome MD Unavailable Unavailable [...] is protected by Article 27-F of the [facility] Public Health law. If you continue you may have access to information: Regarding HIV / AIDS; Provided by facilities licensed or operated by the [facility] Office of Mental Health; or Provided by the [facility] Office for People With Developmental Disabilities. If such information is present, then the following [facility] mandated warning applies: This information has been [...] law may result in a fine or correction sentence or both. A general authorization for the release of medical or other information is NOT sufficient authorization for further disc losure. Allergies and Adverse Reactions Type Description Substance Reaction Status Data Source(s ) Allergy to substance Allergy to substance Allergy to substance [place] ([facility]) Allergy to substance Allergy to substance Allergy to substance [place] ([facility]) Allergy to substance Allergy to substance Allergy to substance [place] ([facility]) Family History Family Member Name Family Member Gender Family Member Status Date o f Status Description Data Source(s) Unknown Female Diagnosis 03/27/2020 12:00:00 AM EDT [facility] ([facility]) Unknown Unknown Problem [facility] father's side sister Unknown Male Problem [facility] ([facility] Unknown Male Problem [facility] ([facility]) Unknown Female Problem [facility] ([facility]) Unknown Female Problem [facility] ([facility]) Unknown Female Problem [facility] ([facility]) Encounters Encounter Providers Location Date Indications Data Source(s ) Outpatient Attender: Evelina Soliz MD Physical Therapy 07/22 09:45:00 AM EDT [facility] ([facility]) Celena Mcbride MD: [address] [place] [address], Ph. Attender: Celena Mcbride [facility] Medical 07/12/2021 12:00:00 AM EDT [place] ([facility]) Celena Mcbride MD: [address] [place] [address], Ph. Attender: Celena Mcbride [facility] Medical 06/07/2021 12:00:00 AM EDT [place] ([facility]) Celena Mcbride MD: [address], [place] [address], Ph. Attender: Celena Mcbride [facility] Medical 06/07/2021 12:00:00 AM EDT [place] ([facility]) Outpatient Attender: MOLLY ASHLEY Knight/Blanchard/Los/R eindl 05/29/2021 12:45:00 PM EDT [facility] ([facility]) Attender: TITA Granger 05/20/2021 10:23:00 AM EDT - 05/20/2021 10:23:00 AM EDT [facility] ([facility]) Outpatient Attender: Rito Knight/Huy/Los/R eindl 04/17/2021 08:30:00 AM EDT [facility] ([facility]) Attender: Celena Granger 04/15 01:53:00 PM EDT - 04/15/2021 01:53:00 PM EDT [facility] ([facility]) Attender: TITA Lopez 04/12/2021 10:30:00 AM EDT - 04/12/2021 10:30:00 AM EDT Gender identity disorder, unspecified [facility] ([facility]) Gender identity disorder, unspecified Outpatient Attender: Rito Knight/Huy/Los/R eindl 04/03/2021 02:00:00 PM EDT [facility] ([facility] Attender: Angelic Granger 0 03/28/2021 03:52:00 PM EDT - 03/28/2021 03:52:00 PM EDT [facility] ([facility]) Outpatient Attender: Evelina Soliz MD Physical Therapy 03/21 02:30:00 PM EDT [facility] ([facility]) Outpatient Attender: Graciela Thompson MDReferrer: Lucy Ceron NP [id number] 03/06/2021 12:00:00 AM EDT - 03/06/2021 04:18:40 PM EDT [facility] Celena Mcbride MD: [address] [place] [address], [place] [address], Ph. Attender: Celena Mcbride [facility] 03/05/2021 12:00:00 AM EDT [place] ([facility]) Celena Mcbride MD: [address] , [place] [address], Ph. Attender: Celena Mcbride [facility] Medical 03/05/2021 12:00:00 AM EDT [place] ([facility]) Celena Mcbride MD: [address] [place] [address], Ph. Attender: Celena Mcbride [facility] 03/05/2021 12:00:00 AM EDT [place] ([facility]) Outpatient Attender: Graciela Thompson MDAdmitter: Graciela Thompson MD [id number] 02/19/2021 12:00:00 AM EDT - 02/20/2021 08:34:00 AM ED T Gender identity disorder, unspecified [facility] Gender identity disorder, unspecified Patient discharged. Outpatient Attender: Damaris Torres MDReferrer: Graciela niño MD 02/13/2021 12:00:00 AM EDT [facility] pretest Celena Mcbride MD: [address] [place] [address], Ph. Attender: Celena Mcbride [facility] 02/12/2021 12:00:00 AM EDT [place] ([facility]) Celena Mcbride MD: [address] [place] [address], Ph. Attender: Celena Mcbride [facility] 02/12/2021 12:00:00 AM EDT [place] ([facility]) Celena Mcbride MD: [address], [place] [address], Ph. Attender: Celena Mcbride [facility] Medical 02/12/2021 12:00:00 AM EDT [place] ([facility]) Celena Mcbride MD: [address], [place] [address], Ph. Attender: Celena Mcbride [facility] Medical 02/12/2021 12:00:00 AM EDT [place] ([facility]) Outpatient Attender: Graciela BALDERASeferrer: Lucy Ceron NP [id number] 01/28/2021 12:00:00 AM EDT - 01/28/2021 12:29:32 PM ED T Gender identity disorder, unspecified [facility] Gender identity disorder, unspecified Celena Mcbride MD: [address], [place] [address], Ph. Attender: Celena Mcbride [facility] Medical 01/21/2021 12:00:00 AM EDT [place] ([facility]) Celena Mcbride MD: [address], [place] [address], Ph. Attender: Celena Mcbride [facility] Medical 01/21/2021 12:00:00 AM EDT [place] ([facility]) Celena Mcbride MD: [address], [place] [address], Ph. Attender: Celena Mcbride [facility] Medical 01/21/2021 12:00:00 AM EDT [place] ([facility]) Celena Mcbride MD: [address], [place] [address], Ph. Attender: Celena Mcbride [facility] 01/21/2021 12:00:00 AM EDT [place] ([facility]) Celena Mcbride MD: [address], [place] [address], Ph. Attender: Celena Mcbride [facility] Medical 01/21/2021 12:00:00 AM EDT [place] ([facility]) Celena Mcbride MD: [address], [place] [address], Ph. Attender: Celena Mcbride [facility] Medical 12/19/2020 12:00:00 AM EDT [place] ([facility]) Celena Mcbride MD: [address], [place] [address], Ph. Attender: Celena Mcbride [facility] 12/19/2020 12:00:00 AM EDT [place] ([facility]) Celena Mcbride MD: [address], [place] [address], Ph. Attender: Celena Mcbride [facility] Medical 12/19/2020 12:00:00 AM EDT [place] ([facility]) Celena Mcbride MD: [address], [place] [address], Ph. Attender: Celena Mcbride [facility] Medical 12/19/2020 12:00:00 AM EDT [place] ([facility]) Celena Mcrbide MD: [address], [place] [address], Ph. Attender: Celena Mcbride [facility] Medical 12/19/2020 12:00:00 AM EDT [place] ([facility]) Celena Mcbride MD: [address], [place] [address], Ph. Attender: Celena Mcbride [facility] Medical 12/19/2020 12:00:00 AM EDT [place] ([facility]) Outpatient Attender: Evelina Soliz MD Physical Therapy 12/14 11:45:00 AM EDT [place] ([facility]) Outpatient Attender: Jurgen Larsen MD 12/13/2020 12:00:[address] [facility] Celena Mcbride MD: [address], [place] [address], Ph. Attender: Celena Mcbride [facility] Medical 12/12/2020 12:00:00 AM EDT [place] ([facility]) Celena Mcbride MD: [address], [place] [address], Ph. Attender: Celena Mcbride [facility] Medical 12/12/2020 12:00:00 AM EDT [place] ([facility]) Celena Mcbride MD: [address], [place] [address], Ph. Attender: Celena Mcbride [facility] Medical 12/12/2020 12:00:00 AM EDT [place] ([facility]) Celena Mcbride MD: [address], [place] [address], Ph. Attender: Celena Mcbride [facility] Medical 12/12/2020 12:00:00 AM EDT [place] ([facility]) Celena Mcbride MD: [address], [place] [address], Ph. Attender: Celena Mcbride [facility] Medical 12/12/2020 12:00:00 AM EDT [place] ([facility]) Celena Mcbride MD: [address], [place] [address], Ph. Attender: Celena Mcbride [facility] Medical 12/12/2020 12:00:00 AM EDT [place] ([facility]) Celena Mcbride MD: [address], [place] [address], Ph. Attender: Celena Mcbride [facility] Medical 12/12/2020 12:00:00 AM EDT [place] ([facility]) Outpatient Attender: Obi Means 12/12/2020 12:00:[address] [facility] Outpatient Attender: Jurgen Larsen MD 12/07/2020 12:00:[address] [facility] Outpatient Attender: NATHEN MEANS MD [facility] [place] 12/06/2020 02:30:00 PM EDT [facility] ([facility]) Attender: TITA Granger 11/30/2020 10:05:00 AM EST - 11/30/2020 10:05:00 AM EST [facility] ([facility]) Attender: TITA Granger 11/14/2020 10:17:00 AM EST - 11/14/2020 10:17:00 AM EST [facility] ([facility]) Attender: Angelic Arauz 12:30:00 PM EST - 11/13/2020 12:30:00 PM EST [facility] ([facility]) Attender: Angelic Arauz 08/2021 08:07:00 AM EST - 11/02/2020 08:07:00 AM EST [facility] ([facility]) Outpatient Attender: BRYCE ARGUELLES [facility] Office 10/22 08:00:00 AM EST [facility] ([facility] Outpatient Attender: Javon Dixon MD Main Office 10/23/2020 08:00:00 AM EST [facility] ([facility]) Attender: TITA Granger 10/17/2020 03:17:00 PM EST - 10/17/2020 03:17:00 PM EST [facility] ([facility]) Attender: TITA Lopez 10/12/2020 10:30:00 AM EST - 10/12/2020 10:30:00 AM EST Gender identity disorder, unspecified [facility] ([facility]) Gender identity disorder, unspecified Outpatient Attender: DOLORES Corraels Primary 10/11/2020 11:00:00 AM EST [facility] ([facility]) Attender: TITA Lopez 10/03/2020 03:34:00 PM EST - 10/03/2020 03:34:00 PM EST [facility] ([facility]) Attender: TITA Granger 09/27/2020 01:16:00 PM EST - 09/27/2020 01:16:00 PM EST [facility] ([facility]) Attender: TITA Granger 09/25/2020 01:27:00 PM EST - 09/25/2020 01:27:00 PM EST [facility] ([facility]) Outpatient Attender: Evelina Soliz MD Physical Therapy 09/20 02:00:00 PM EST [facility] ([facility]) Attender: Angelic Granger 1 10/31/2019 10:49:00 AM EST - 08/30/2020 10:49:00 AM EST [facility] ([facility]) Attender: TITA Granger 08/29/2020 07:43:00 AM EST - 08/29/2020 07:43:00 AM EST [facility] ([facility]) Attender: TITA Granger 08/28/2020 09:48:00 AM EST - 08/28/2020 09:48:00 AM EST [facility] ([facility]) Outpatient Attender: Evelina Soliz MD Physical Therapy 08/20 12:45:00 PM EST [facility] ([facility]) Attender: TITA Granger 07/24/2020 09:24:00 AM EST - 07/24/2020 09:24:00 AM EST [facility] ([facility]) Attender: TITA Granger 07/23/2020 10:13:00 AM EST - 07/23/2020 10:13:00 AM EST [facility] ([facility]) Attender: TITA Stoll 09:01:00 AM EDT - 07/18/2020 09:01:00 AM EDT [facility] ([facility]) Attender: TITA Stoll 11:42:00 AM EDT - 07/17/2020 11:42:00 AM EDT [facility] ([facility]) Attender: TITA Granger 07/16/2020 12:42:00 PM EDT - 07/16/2020 12:42:00 PM EDT [facility] ([facility]) Attender: TITA Lopez 07/13/2020 10:30:00 AM EDT - 07/13/2020 10:30:00 AM EDT Gender Identity Disorder [facility] ([facility]) Gender Identity Disorder Outpatient FP 07/11/2020 09:38:00 AM EDT [facility] SUSANNE Malin-BC: [address], [place] [address], Ph. Attender: Charisse Cassidy NP [facility] 07/11/2020 12:00:00 AM EDT [place] ([facility]) SUSANNE Malin-BC: [address], [place] [address], Ph. Attender: Charisse Cassidy NP [facility] 07/11/2020 12:00:00 AM EDT [place] ([facility]) SUSANNE Malin-BC: [address], [place] [address], Ph. Attender: Charisse Cassidy NP [facility] 07/11/2020 12:00:00 AM EDT [place] ([facility]) SUSANNE Malin-BC: [address], [place] [address], Ph. Attender: Charisse Cassidy NP [facility] 07/11/2020 12:00:00 AM EDT [place] ([facility]) SUSANNE Malin-BC: [address], [place] [address], Ph. Attender: Charisse Cassidy NP [facility] 07/11/2020 12:00:00 AM EDT [place] ([facility]) SUSANNE Malin-BC: [address], [place] [address], Ph. Attender: Charisse Cassidy NP [facility] 07/11/2020 12:00:00 AM EDT [place] ([facility]) SUSANNE Malin-BC: [address], [place] [address], Ph. Attender: Charisse Cassidy NP [facility] 07/11/2020 12:00:00 AM EDT [facility]) XUAN Malin: [address], [place] [address], Ph. Attender: Charisse Cassidy NP [facility] 07/11/2020 12:00:00 AM EDT [facility]) BLAIR MalinBC: [address], [place] [address], Ph. Attender: Charisse Cassidy NP [facility] 07/11/2020 12:00:00 AM EDT [facility]) XUAN Malin: [address], [place] [address], Ph. Attender: Charisse Cassidy NP [facility] 07/11/2020 12:00:00 AM EDT [place] ([facility]) Medications Medication Brand Name Start Date Product [...] 25 MG/ACTUAT / tiotropium 0.0025 MG/ACTUAT Inhalation [place] ([facility]) Levofloxacin 750 MG Oral Tablet [Levaqui n] Levaquin 750 mg tablet Take 1 tablet every day by oral route for 7 days. Levaquin 750 mg tablet Take 1 tablet varsha ry day by oral route for 7 days. 07/07/2021 12:00:00 AM EDT 1 completed levofloxacin 750 MG Oral Tablet [Levaquin] [place] ([facility]) Prednisone 10 MG Oral Tablet prednisone 10 [...] prednisone 10 MG Oral Tablet ATH [place] ([facility]) 10 mg 07/06/2021 12:00:00 AM EDT [...] TIMES A DAY [facility] ([facility]) 2 mg 05/20/2021 12:00:00 AM EDT [...] 12:00: 00 AM EDT ORAL active [facility] 60 ACTUAT Fluticasone propionate 0.113 [...] on Thu02/20/21 at 0900, For 30 days [facility] Medication administered onsite levothyroxine (SYNTHROID) tablet 137 mcg 02/20/2021 09:00: 00 AM EDT 137 ug Oral active 137 mcg, Oral, Every morning, First dose on Thu02/20/21 at 0900, For 30 days [facility] Medication administered onsite Simvastatin 20 MG Oral Tablet simvastatin (ZOCOR) tabl et 40 mg simvastatin (ZOCOR) tablet 40 mg 02/20/2021 09:00:00 AM EDT 40 mg Oral active 40 mg, Oral, Every morning, First dose on Thu02/20/21 at 0900, For 30 days [facility] Medication administered onsite metoprolol (LOPRESSOR) split tablet 12.5 mg [id number] 02/20/2021 09:00:00 AM EDT 12.5 mg Oral active 12.5 mg, Oral, Every morning, First dose on Thu02/20/21 at 0900, For 30 days [facility] Medication administered onsite tiotropium - olodaterol (STIOLTO RESPIMAT) inhalation spray 2 puff [id number] 02/20/2021 09:00:00 AM EDT 2 {puff} Inhalation active 2 puff, Inhalation, Every morning, First dose on Thu02/20/21 at 0900, For 30 days [facility] Medication administered onsite pantoprazole 40 MG Delayed Release Oral Tablet pantoprazole (PROTONIX) EC tablet 40 mg pantoprazole (PROTONIX) EC tablet 40 mg 02/20/2021 09:00:00 AM E DT 40 mg Oral active 40 mg, Ora l, Daily Standard, First dose on Thu02/20/21 at 0900, For 30 days
Do not crush or chew
[facility] Medication administered onsite Acetaminophen 325 MG Oral Tablet Acetaminophen 325 MG Oral Tablet (Tylenol) Acetaminophen 325 MG Oral Tablet (Tylenol) 02/20/2021 12:00:00 AM EDT 650 mg Oral active Take 2 tablets by mo [facility] every 6 (six) hours for 10 days [facility] Docusate Sodium 100 MG Oral Capsule Docu sate Sodium 100 MG Oral Capsule (COLACE) Docusate Sodium 100 MG Oral Capsule (COLACE) 02/20/2021 12:00:00 AM EDT 100 mg Oral active Take 1 capsule by mouth Two Times Daily for 10 days [facility] tramadol hydrochloride 50 MG Oral Tablet traMADol HCl 50 MG Oral Tablet (ULTRAM) traMADol HCl 50 MG Oral Tablet (ULTRAM) 02/20/2021 12:00:00 AM EDT 50 mg Oral active Take 1 tablet by mouth every 6 (six) hours as needed for up to 2 days, Max Daily Dose: 200 mg [facility] 50 mg 02/20/2021 12:00:00 AM EDT tablet [...] on Thu02/19/21 at 2100, For 30 days [facility] Medication administered onsite heparin (porcine) 5000 UNIT/ML injection 5,000 Units [id number] 02/19/2021 05:00:00 PM EDT 5000 U Subcutaneous active 5,000 Units, Subcutaneous, Three Times Daily Standard, First dose on Thu02/19/21 at 1700, For 30 days [facility] Medication administered onsite NaCl infusion 0.9 % [id number] 02/19/2021 01:15:00 PM EDT Intravenous aborted at 100 mL/hr, Intrav enous, Continuous, Starting on Thu02/19/21 at 1315, For 30 days [facility] Medication administered onsite Acetaminophen 325 MG Oral Tablet acetaminophen (TYLENO L) tablet 650 mg acetaminophen (TYLENOL) tablet 650 mg 02/19/2021 01:15:00 PM EDT 65 0 mg Oral active 650 mg, Oral, E very 6 hours, First dose on Thu02/19/21 at 1315, For 30 days
Maximum daily dose of acetaminophen is 3,000 mg from all sources in 24 hours.
[facility] Medication administered onsite tramadol hydrochloride 50 MG Oral Tablet tramadol (ULT JEREMY) tablet 50 mg tramadol (ULTRAM) tablet 50 mg 02/19/2021 01:06:10 PM EDT 50 mg Oral active 50 mg, Oral, Every 6 hours PRN, Moderate Pain (Pain Scale Score 4-6), Starting on Thu02/19/21 at 1306, For 3 days [facility] Medication administered onsite ondansetron (ZOFRAN) injection 4 mg [id number] 02/19/2021 01:02:4 8 PM EDT 4 mg Intravenous active 4 mg, In travenous, Every 8 hours PRN, Nausea, Starting on Thu02/19/21 at 1302, For 5 days [facility] Medication administered onsite albuterol (PROVENTIL HFA) inhaler 2 puff [id number] 02/19/2021 12:55:42 PM EDT 2 {puff} Inhalation active 2 pu ff, Inhalation, Every 4 hours PRN, Wheezing, Shortness of Breath, Starting on Thu02/19/21 at 1255, For 4 days
Shake the inhaler well before each spray.
[facility] Medication administered onsite Albuterol Sulfate HFA 108 (90 Base) MCG/ ACT Inhalation Aerosol Solution (PROVENTIL HFA) [id number] 01/08/2021 12:00:00 AM EDT 2 {puff} Inha lation active Inhale 2 puffs into the lung s every 4 (four) hours as needed [facility] 81 mg 12/27/2020 12:00:00 AM EDT tablet,delayed [...] DOSE = 80 UNITS SOLD: 02/05/2021 [facility] 100 unit/mL 12/15/2020 12:00:00 AM EDT [...] route BID [facility] ([facility]) 2 mg 11/14/2020 12:00:00 AM EST [...] route every day [facility] ([facility]) 20 mg 10/11/2020 12:00:00 AM EST tablet 8 TAKE ONE TABLET BY MOUTH TWO TIMES A DAY FOR 4 DAYS TAKE ONE TABLET BY MOUTH TWO TIMES A DAY FOR 4 DAYS SO LD: 10/11/2020 [facility] Doxycycline Monohydrate 100 MG Oral Tablet Doxycycline Monoh ydrate 10/11/2020 12:00:00 AM EST ORAL active M [facility] ([facility]) Prednisone 20 MG Oral Tablet Prednisone 10/11/2020 12:00:00 AM EST ORAL active [facility] ([facility]) doxycycline hyclate 100 MG Oral Capsule DOXYCYCLINE [...] the tongue x 30 min before swallowing[facility] Estradiol 2 MG Oral Tablet estradiol 2 mg tablet estradiol 2 mg tablet 07/13/2020 12:00:00 AM EDT completed take 1 tablet by po daily. Allow to dissolve under the tongue x 30 min before swallowing. [facility] ([facility] 137 mcg 06/22/2020 12:00:00 AM EDT [...] Sodium 06/20/2020 12:00:00 AM EDT ORAL [facility] BLOOD SUGAR DIAGNOSTIC 06/11/2020 12:00:00 AM [...] Capsule [Prometrium] [facility] ([facility]) 40 mg 05/15/2020 12:00:00 AM EDT [...] every day [facility] ([facility]) tramadol hydrochloride 50 MG Oral Tablet tramadol 50 mg tablet TAKE ONE TABLET BY MOUTH EVERY 6 HOURS NEEDED FOR UP TO 2 DAYS MAXIMUM DAILY DOSE FOUR TABLETS tramadol 50 mg tablet TAKE ONE TABLET BY MOUTH EVERY 6 HOURS NEEDED FOR UP TO 2 DAYS MAXIMUM DAILY DOSE FOUR TABLETS completed tramadol hydrochloride 50 MG Oral Tablet [place] ([facility]) Prednisone 20 MG Oral Tablet prednisone 20 mg tablet TAKE ONE TABLET BY MOUTH TWO TIMES A DAY FOR 4 DAYS prednisone 20 mg tablet TAKE ONE TABLET BY MOUTH TWO TIMES A DAY FOR 4 DAYS completed prednisone 20 MG Oral Tablet [place] ([facility]) doxycycline hyclate 100 MG Oral Capsule doxycycline hyclate 100 mg capsule TAKE ONE CAPSULE BY MOUTH TWICE A DAY FOR 10 DAYS doxycycline hyclate 100 mg capsule TAKE ONE CAPSULE BY MOUTH TWICE A DAY FOR 10 DAYS completed doxycycline hyclate 100 MG Oral Capsule [place] ([facility]) Finasteride 5 MG Oral Tablet finasteride 5 mg tablet finasteride 5 mg tablet completed finasteride 5 MG Oral Tablet [place] ([facility]) doxycycline hyclate 100 MG Oral Capsule doxycycline hyclate 100 mg capsule TAKE ONE CAPSULE BY MOUTH TWICE A DAY FOR 10 DAYS doxycycline hyclate 100 mg capsule TAKE ONE CAPSULE BY MOUTH TWICE A DAY FOR 10 DAYS completed doxycycline hyclate 100 MG Oral Capsule [place] ([facility]) 1 ML Leuprolide Acetate 3.75 MG/ML Prefi lled Syringe [Lupron] Lupron Depot 3.75 mg intramuscular syringe kit INJECT 3.75MG MONTHLY Lupron Depot 3.75 mg intramuscular syringe kit INJECT 3.75MG MONTHLY completed 1 ML leuprolide acetate 3.75 MG/ML Prefilled Syringe [Lupron] [place] ([facility]) Finasteride 5 MG Oral Tablet finasteride 5 mg tablet finasteride 5 mg tablet completed finasteride 5 MG Oral Tablet [place] ([facility]) Levothyroxine Sodium 0.025 MG Oral Table t [Levo-T] Levo-T 25 mcg tablet Take 1 tablet every day by oral route. Levo-T 25 mcg tablet Take 1 tablet every day by oral route. 1 completed le vothyroxine sodium 0.025 MG Oral Tablet [Levo-T] [facility] ([facility]) Finasteride 5 MG Oral Tablet finasteride 5 mg tablet finasteride 5 mg tablet completed finasteride 5 MG Oral Tablet [place] ([facility]) Clarithromycin 500 MG Oral Tablet clarit hromycin 500 mg tablet TAKE ONE TABLET BY MOUTH EVERY 12 HOURS FOR 10 DAYS clarithromycin 500 mg tablet TAKE ONE TA BLET BY MOUTH EVERY 12 HOURS FOR 10 DAYS c ompleted clarithromycin 500 MG Oral Tablet [place] ([facility]) doxycycline hyclate 100 MG Oral Capsule doxycycline hyclate 100 mg capsule TAKE ONE CAPSULE BY MOUTH TWICE A DAY FOR 10 DAYS doxycycline hyclate 100 mg capsule TAKE ONE CAPSULE BY MOUTH TWICE A DAY FOR 10 DAYS completed doxycycline hyclate 100 MG Oral Capsule [place] ([facility]) Progesterone 100 MG Oral Capsule progesterone microniz ed 100 mg capsule progesterone micronized 100 mg capsule completed progesterone 100 MG Oral Capsule [facility] ([facility]) ammonium lactate 120 MG/ML Topical Cream ammonium lactate 12 % topical cream APPLY TO FEET DAILY ammonium lactate 12 % topical cream APPLY TO FEET DAILY completed ammonium lactate 120 M G/ML Topical Cream [facility] ([facility]) Clarithromycin 500 MG Oral Tablet clarit hromycin 500 mg tablet TAKE ONE TABLET BY MOUTH EVERY 12 HOURS FOR 10 DAYS clarithromycin 500 mg tablet TAKE ONE TA BLET BY MOUTH EVERY 12 HOURS FOR 10 DAYS c ompleted clarithromycin 500 MG Oral Tablet [place] ([facility]) Prednisone 20 MG Oral Tablet prednisone 20 mg tablet TAKE ONE TABLET BY MOUTH TWO TIMES A DAY FOR 4 DAYS prednisone 20 mg tablet TAKE ONE TABLET BY MOUTH TWO TIMES A DAY FOR 4 DAYS completed prednisone 20 MG Oral Tablet [place] ([facility]) Progesterone 100 MG Oral Capsule progesterone microniz ed 100 mg capsule progesterone micronized 100 mg capsule 2.00 {capsule} ORAL completed take 2 capsule by oral route every day for 12 days in the evening sequentially per 28 day cycle [facility] ([facility]) Clarithromycin 500 MG Oral Tablet clarit hromycin 500 mg tablet TAKE ONE TABLET BY MOUTH EVERY 12 HOURS FOR 10 DAYS clarithromycin 500 mg tablet TAKE ONE TA BLET BY MOUTH EVERY 12 HOURS FOR 10 DAYS c ompleted clarithromycin 500 MG Oral Tablet [place] ([facility]) Azithromycin 250 MG Oral Tablet azithrom ycin 250 mg tablet TAKE TWO TABLETS BY MOUTH ONCE DAILY FOR 1 DAY THEN TAKE ONE TABLET BY MOUTH ONCE DAILY FOR 4 DAYS azithromycin 250 mg tablet TAKE TWO TABLETS BY MOUTH ONCE DAILY FOR 1 DAY THEN TAKE ONE TABLET BY MOUTH ONCE DAILY FOR 4 DAYS completed azithromycin 250 MG Oral Tablet [place] ([facility]) ammonium lactate 120 MG/ML Topical Cream ammonium lactate 12 % topical cream APPLY TO FEET DAILY ammonium lactate 12 % topical cream APPLY TO FEET DAILY completed ammonium lactate 120 M G/ML Topical Cream [facility] ([facility]) liothyronine sodium 0.025 MG Oral Tablet liothyronine 25 mcg tablet liothyronine 25 mcg tablet completed liothyronine sodium 0.025 MG Oral Tablet [facility] ([facility]) Levothyroxine Sodium 0.025 MG Oral Table t [Levo-T] Levo-T 25 mcg tablet Take 1 tablet every day by oral route. Levo-T 25 mcg tablet Take 1 tablet every day by oral route. 1 completed le vothyroxine sodium 0.025 MG Oral Tablet [Levo-T] [facility] ([facility]) Estradiol 2 MG Oral Tablet estradiol 2 mg tablet estradiol 2 mg tab let 1 {tablet} ORAL completed take 1 tablet by oral route every day [facility] ([facility]) Progesterone 100 MG Oral Capsule progesterone microniz ed 100 mg capsule progesterone micronized 100 mg capsule completed progesterone 100 MG Oral Capsule [facility] ([facility]) Finasteride 5 MG Oral Tablet finasteride 5 mg tablet finasteride 5 mg tablet 0.5 {tablet} ORAL completed take 0.5 tablet by oral route every day [facility] ([facility]) Levothyroxine Sodium 0.025 MG Oral Table t [Levo-T] Levo-T 25 mcg tablet Take 1 tablet every day by oral route. Levo-T 25 mcg tablet Take 1 tablet every day by oral route. 1 completed le vothyroxine sodium 0.025 MG Oral Tablet [Levo-T] [facility] ([facility]) OneTouch Ultra Blue Test Strip USE DIRECTED FOUR TIMES A DAY [id number] completed OneTouch Ultra Blue Test Strip [facility] ([facility]) olodaterol 0.0025 MG/ACTUAT / tiotropium 0.0025 MG/ACTUAT Metered Dose Inhaler Stiolto Respimat 2.5 mcg-2.5 mcg/actuation solution for inhalation INHALE TWO PUFFS BY MOUTH EVERY DAY Stiolto Respimat 2.5 mcg-2.5 mcg/actuati on solution for inhalation INHALE TWO PUFFS BY MOUTH EVERY DAY completed olodaterol 0.0025 MG/ACTUAT / tiotropium 0.0025 MG/ACTUAT Inhalation [place] ([facility]) Prednisone 20 MG Oral Tablet prednisone 20 mg tablet TAKE ONE TABLET BY MOUTH TWO TIMES A DAY FOR 4 DAYS prednisone 20 mg tablet TAKE ONE TABLET BY MOUTH TWO TIMES A DAY FOR 4 DAYS completed prednisone 20 MG Oral Tablet [facility]) Prednisone 20 MG Oral Tablet prednisone 20 mg tablet TAKE ONE TABLET BY MOUTH TWO TIMES A DAY FOR 4 DAYS prednisone 20 mg tablet TAKE ONE TABLET BY MOUTH TWO TIMES A DAY FOR 4 DAYS completed prednisone 20 MG Oral Tablet [facility]) tramadol hydrochloride 50 MG Oral Tablet tramadol 50 mg tablet TAKE ONE TABLET BY MOUTH EVERY 6 HOURS NEEDED FOR UP TO 2 DAYS MAXIMUM DAILY DOSE FOUR TABLETS tramadol 50 mg tablet TAKE ONE TABLET BY MOUTH EVERY 6 HOURS NEEDED FOR UP TO 2 DAYS MAXIMUM DAILY DOSE FOUR TABLETS completed tramadol hydrochloride 50 MG Oral Tablet [facility]) Prednisone 20 MG Oral Tablet prednisone 20 mg tablet TAKE ONE TABLET BY MOUTH TWO TIMES A DAY FOR 4 DAYS prednisone 20 mg tablet TAKE ONE TABLET BY MOUTH TWO TIMES A DAY FOR 4 DAYS completed prednisone 20 MG Oral Tablet [place] ([facility]) Lisinopril 2.5 MG Oral Tablet lisinopril 2.5 mg tablet TAKE ONE TABLET BY MOUTH ONCE DAILY lisinopril 2.5 mg tablet TAKE ONE TABLET BY MOUTH ONCE DAILY completed lisinopril 2.5 MG Oral Ta blet [facility]) Finasteride 5 MG Oral Tablet finasteride 5 mg tablet finasteride 5 mg tablet completed finasteride 5 MG Oral Tablet [place] ([facility]) Levothyroxine Sodium 0.025 MG Oral Table t [Levo-T] Levo-T 25 mcg tablet Take 1 tablet every day by oral route. Levo-T 25 mcg tablet Take 1 tablet every day by oral route. 1 completed le vothyroxine sodium 0.025 MG Oral Tablet [Levo-T] [place] ([facility]) Prednisone 20 MG Oral Tablet prednisone 20 mg tablet TAKE ONE TABLET BY MOUTH TWO TIMES A DAY FOR 4 DAYS prednisone 20 mg tablet TAKE ONE TABLET BY MOUTH TWO TIMES A DAY FOR 4 DAYS completed prednisone 20 MG Oral Tablet [place] ([facility]) Clarithromycin 500 MG Oral Tablet clarit hromycin 500 mg tablet TAKE ONE TABLET BY MOUTH EVERY 12 HOURS FOR 10 DAYS clarithromycin 500 mg tablet TAKE ONE TA BLET BY MOUTH EVERY 12 HOURS FOR 10 DAYS c ompleted clarithromycin 500 MG Oral Tablet [place] ([facility]) Finasteride 5 MG Oral Tablet finasteride 5 mg tablet finasteride 5 mg tablet completed finasteride 5 MG Oral Tablet [place] ([facility]) Docusate Sodium 100 MG Oral Capsule docu sate sodium 100 mg capsule TAKE ONE CAPSULE BY MOUTH TWICE A DAY FOR 10 DAYS docusate sodium 100 mg capsule TAKE ONE CAPSULE BY MOUTH TWICE A DAY FOR 10 DAYS completed docusate sodium 100 MG Oral Capsule [facility] ([facility]) doxycycline hyclate 100 MG Oral Capsule doxycycline hyclate 100 mg capsule TAKE ONE CAPSULE BY MOUTH TWICE A DAY FOR 10 DAYS doxycycline hyclate 100 mg capsule TAKE ONE CAPSULE BY MOUTH TWICE A DAY FOR 10 DAYS completed doxycycline hyclate 100 MG Oral Capsule [place] ([facility]) Prednisone 20 MG Oral Tablet prednisone 20 mg tablet TAKE ONE TABLET BY MOUTH TWO TIMES A DAY FOR 4 DAYS prednisone 20 mg tablet TAKE ONE TABLET BY MOUTH TWO TIMES A DAY FOR 4 DAYS completed prednisone 20 MG Oral Tablet [place] ([facility]) liothyronine sodium 0.025 MG Oral Tablet liothyronine 25 mcg tablet liothyronine 25 mcg tablet completed liothyronine sodium 0.025 MG Oral Tablet [place] ([facility]) Progesterone 100 MG Oral Capsule progesterone microniz ed 100 mg capsule progesterone micronized 100 mg capsule completed progesterone 100 MG Oral Capsule [place] ([facility]) Progesterone 100 MG Oral Capsule progesterone microniz ed 100 mg capsule progesterone micronized 100 mg capsule completed progesterone 100 MG Oral Capsule [place] ([facility]) Clarithromycin 500 MG Oral Tablet clarit hromycin 500 mg tablet TAKE ONE TABLET BY MOUTH EVERY 12 HOURS FOR 10 DAYS clarithromycin 500 mg tablet TAKE ONE TA BLET BY MOUTH EVERY 12 HOURS FOR 10 DAYS c ompleted clarithromycin 500 MG Oral Tablet [place] ([facility]) tramadol hydrochloride 50 MG Oral Tablet tramadol 50 mg tablet TAKE ONE TABLET BY MOUTH EVERY 6 HOURS NEEDED FOR UP TO 2 DAYS MAXIMUM DAILY DOSE FOUR TABLETS tramadol 50 mg tablet TAKE ONE TABLET BY MOUTH EVERY 6 HOURS NEEDED FOR UP TO 2 DAYS MAXIMUM DAILY DOSE FOUR TABLETS completed tramadol hydrochloride 50 MG Oral Tablet [facility] ([facility]) liothyronine sodium 0.025 MG Oral Tablet liothyronine 25 mcg tablet liothyronine 25 mcg tablet completed liothyronine sodium 0.025 MG Oral Tablet [facility] ([facility]) Azithromycin 250 MG Oral Tablet azithrom ycin 250 mg tablet TAKE TWO TABLETS BY MOUTH ONCE DAILY FOR 1 DAY THEN TAKE ONE TABLET BY MOUTH ONCE DAILY FOR 4 DAYS azithromycin 250 mg tablet TAKE TWO TABLETS BY MOUTH ONCE DAILY FOR 1 DAY THEN TAKE ONE TABLET BY MOUTH ONCE DAILY FOR 4 DAYS completed azithromycin 250 MG Oral Tablet [facility] ([facility]) 1 ML Leuprolide Acetate 3.75 MG/ML Prefi lled Syringe [Lupron] Lupron Depot 3.75 mg intramuscular syringe kit INJECT 3.75MG MONTHLY Lupron Depot 3.75 mg intramuscular syringe kit INJECT 3.75MG MONTHLY completed 1 ML leuprolide acetate 3.75 MG/ML Prefilled Syringe [Lupron] [place] ([facility]) Levothyroxine Sodium 0.025 MG Oral Table t [Levo-T] Levo-T 25 mcg tablet Take 1 tablet every day by oral route. Levo-T 25 mcg tablet Take 1 tablet every day by oral route. 1 completed le vothyroxine sodium 0.025 MG Oral Tablet [Levo-T] [facility] ([facility]) liothyronine sodium 0.025 MG Oral Tablet liothyronine 25 mcg tablet liothyronine 25 mcg tablet completed liothyronine sodium 0.025 MG Oral Tablet [place] ([facility]) Finasteride 5 MG Oral Tablet finasteride 5 mg tablet finasteride 5 mg tablet completed finasteride 5 MG Oral Tablet [place] ([facility]) liothyronine sodium 0.025 MG Oral Tablet liothyronine 25 mcg tablet liothyronine 25 mcg tablet completed liothyronine sodium 0.025 MG Oral Tablet [facility] ([facility]) Docusate Sodium 100 MG Oral Capsule docu sate sodium 100 mg capsule TAKE ONE CAPSULE BY MOUTH TWICE A DAY FOR 10 DAYS docusate sodium 100 mg capsule TAKE ONE CAPSULE BY MOUTH TWICE A DAY FOR 10 DAYS completed docusate sodium 100 MG Oral Capsule [facility] ([facility]) doxycycline hyclate 100 MG Oral Capsule doxycycline hyclate 100 mg capsule TAKE ONE CAPSULE BY MOUTH TWICE A DAY FOR 10 DAYS doxycycline hyclate 100 mg capsule TAKE ONE CAPSULE BY MOUTH TWICE A DAY FOR 10 DAYS completed doxycycline hyclate 100 MG Oral Capsule [place] ([facility]) OneTouch Ultra Blue Test Strip USE DIRECTED FOUR TIMES A DAY [id number] completed OneTouch Ultra Blue Test Strip [facility] ([facility]) Levothyroxine Sodium 0.025 MG Oral Table t [Levo-T] Levo-T 25 mcg tablet Take 1 tablet every day by oral route. Levo-T 25 mcg tablet Take 1 tablet every day by oral route. 1 completed le vothyroxine sodium 0.025 MG Oral Tablet [Levo-T] [place] ([facility]) doxycycline hyclate 100 MG Oral Capsule doxycycline hyclate 100 mg capsule TAKE ONE CAPSULE BY MOUTH TWICE A DAY FOR 10 DAYS doxycycline hyclate 100 mg capsule TAKE ONE CAPSULE BY MOUTH TWICE A DAY FOR 10 DAYS completed doxycycline hyclate 100 MG Oral Capsule [place] ([facility]) Progesterone 100 MG Oral Capsule progesterone microniz ed 100 mg capsule progesterone micronized 100 mg capsule completed progesterone 100 MG Oral Capsule [place] ([facility]) doxycycline hyclate 100 MG Oral Capsule doxycycline hyclate 100 mg capsule TAKE ONE CAPSULE BY MOUTH TWICE A DAY FOR 10 DAYS doxycycline hyclate 100 mg capsule TAKE ONE CAPSULE BY MOUTH TWICE A DAY FOR 10 DAYS completed doxycycline hyclate 100 MG Oral Capsule [place] ([facility]) liothyronine sodium 0.025 MG Oral Tablet liothyronine 25 mcg tablet liothyronine 25 mcg tablet completed liothyronine sodium 0.025 MG Oral Tablet [place] ([facility]) Levothyroxine Sodium 0.025 MG Oral Table t [Levo-T] Levo-T 25 mcg tablet Take 1 tablet every day by oral route. Levo-T 25 mcg tablet Take 1 tablet every day by oral route. 1 completed le vothyroxine sodium 0.025 MG Oral Tablet [Levo-T] [place] ([facility]) Metoprolol Tartrate 25 MG Oral Tablet me toprolol tartrate 25 mg tablet TAKE ONE TABLET BY MOUTH ONCE DAILY metoprolol tartrate 25 mg tablet TAKE ON E TABLET BY MOUTH ONCE DAILY completed metoprolol tartrate 25 MG Oral Tablet [place] ([facility]) liothyronine sodium 0.025 MG Oral Tablet liothyronine 25 mcg tablet liothyronine 25 mcg tablet completed liothyronine sodium 0.025 MG Oral Tablet [place] ([facility]) Finasteride 5 MG Oral Tablet finasteride 5 mg tablet finasteride 5 mg tablet completed finasteride 5 MG Oral Tablet [place] ([facility]) Metoprolol Tartrate 25 MG Oral Tablet me toprolol tartrate 25 mg tablet TAKE ONE TABLET BY MOUTH ONCE DAILY metoprolol tartrate 25 mg tablet TAKE ON E TABLET BY MOUTH ONCE DAILY completed metoprolol tartrate 25 MG Oral Tablet [place] ([facility]) Docusate Sodium 100 MG Oral Capsule docu sate sodium 100 mg capsule TAKE ONE CAPSULE BY MOUTH TWICE A DAY FOR 10 DAYS docusate sodium 100 mg capsule TAKE ONE CAPSULE BY MOUTH TWICE A DAY FOR 10 DAYS completed docusate sodium 100 MG Oral Capsule [facility] ([facility]) Insurance Providers Payer name Policy type / Coverage type Policy ID Covered republican ID Covered republican's relationship to herrera Policy Herrera Plan Information Medicaid S [id number] S [id number] Managed Care - Community Plan [facility] P [id number] S [id number] [facility] P [id number] S [id number] Managed Care - [facility] O [id number] S [id number] [facility] Community Plan Commercial [id number] Self [facility] Community Plan Commercial [id number] Self [id number] Managed Care - Community Plan [facility] P [id number] S [id number] Medicaid S [id number] S [id number] Managed Care - Community Plan [facility] P [id number] S [id number] Managed Care - Community Plan [employer] P [id number] S [id number] Medicaid S [id number] S [id number] [facility] COMMUNITY PLAN MCDHMO [id number] SP [id number] [facility] Community Plan Commercial [id number] Self Medicaid [place] Medicaid [id number] Self [employer] [facility] Hmo Commercial [id number] Self [id number] Managed Care - [facility] P [id number] S [id number] [facility] Hmo Commercial [id number] Self [id number] Medicaid S [id number] S [id number] [facility] COMMUNITY PLAN MCDO [id number] SP [id number] Managed Care - [facility] P [id number] S [id number] Medicaid S [id number] Managed Care - [facility] P [id number] S [id number] [facility] MMC [id number] self [id number] [facility] I [id number] Self [id number] [facility] I [id number] Self [id number] Medicaid S [id number] S [id number] Managed Care - [facility] P [id number] S [id number] Medicaid S [id number] S [id number] Managed Care - [facility] P [id number] S [id number] [facility] Health Maintenance Organization (HMO) [id number] Self [id number] [place] Med[place] Part [place] [id number] Self [id number] [place] [id number] Self [id number] [place] Med[place] [id number] Self [id number] [facility] Community Plan Medigap Part B [id number] Self [id number] [facility] Medicaid Medicaid [id number] Self [id number] [facility] Community Plan Medigap Part B [id number] Self [place] [id number] Self [id number] MEDICAID [id number] SP [id number] [facility] [id number] SP [id number] Self Pay P [id number] S [id number] Self Pay P UNAVAILABLE S UNAVAILA BLE [facility] COMMUNITY PLAN [facility] [id number] SP [id number] Managed Care - [facility] P [id number] S [id number] [facility] O [id number] S [id number] Medicaid S UNAVAILABLE S UNAVAILA BLE [id number] [place] Medigap Part B [id number] Self [id number] [place] Med[place] Part [place] [id number] Self [id number] [place] Med[place] Part B [id number] Self [id number] [place] Med[place] Part [place] [id number] Self [id number] [place] Med[place] [id number] Self [id number] MEDICAID M [id number] [facility] Health Maintenance Organization (HMO) [id number] Self [id number] [facility] COMMUNITY PLAN [facility] [id number] [place] Medig[place] Part B [id number] Self [id number] [facility] Health Maintenance Organization (HMO) [id number] Self [id number] Problems, Conditions, and Diagnoses Code Display Name Description Problem Type Effective Dates Data Source(s) F64.9 Gender identity disorder, unspecified Ge nder identity disorder, unspecified Diagnosis 02/19/2021 07:18:00 AM EDT [facility] GENDER DYSPORIA GENDER DYSPORIA Diagnosis 02/19/2021 07:1 8:[address] [facility] pretest pretest Diagnosis 02/13/2021 01:28:22 PM ED [facility] [id number] History of SARS-CoV-2 History of SARS-CoV-2 Prob louise 07/08/2021 12:00:00 AM EDT [place] ([facility]) [id number] History of orchiectomy History of Orchiectomy Problem 03/05/2021 12:00:00 AM EDT [place] ([facility]) [id number] History of orchiectomy History of Orchiectomy Problem 03/05/2021 12:00:00 AM EDT [place] ([facility]) [id number] History of orchiectomy History of Orchiectomy Problem 03/05/2021 12:00:00 AM EDT [place] ([facility]) [id number] Gender dysphoria Gender Dysphoria Problem 02/19/2021 12 :00:00 AM EDT [place] ([facility]) [id number] Essential hypertension Essential Hypertension Problem 01/21/2021 12:00:00 AM EDT [place] ([facility]) [id number] Essential hypertension Essential Hypertension Problem 01/21/2021 12:00:00 AM EDT [place] ([facility]) [id number] Essential hypertension Essential Hypertension Problem 01/21/2021 12:00:00 AM EDT [place] ([facility]) [id number] Essential hypertension Essential Hypertension Problem 01/21/2021 12:00:00 AM EDT [place] ([facility]) [id number] Essential hypertension Essential Hypertension Problem 01/21/2021 12:00:00 AM EDT [place] ([facility]) [id number] Asmson's esophagus Samson's esophagus Problem 0 10/23/2020 12:00:00 AM EST [facility] ([facility]) [id number] Type 2 diabetes mellitus Type 2 diabetes mellitus Prob louise 07/13/2020 12:00:00 AM EDT [facility] ([facility]) [id number] Disorder of thyroid gland Disorder of thyroid gland Pr oblem 07/13/2020 12:00:00 AM EDT [facility] ([facility]) [id number] Hyperlipidemia Hyperlipidemia Problem 07/13/2020 12:00: 00 AM EDT [facility] ([facility]) [id number] Type 1 diabetes mellitus without complic ation Type 1 Diabetes Mellitus without Complication Problem 07/05/2020 05:41:32 PM EDT [place] ([facility]) [id number] Type 1 diabetes mellitus without complic ation Type 1 Diabetes Mellitus without Complication Problem 07/05/2020 05:41:32 PM EDT [place] ([facility]) [id number] Type 1 diabetes mellitus without complic ation Type 1 Diabetes Mellitus without Complication Problem 07/05/2020 05:41:32 PM EDT [place] ([facility]) [id number] Type 1 diabetes mellitus without complic ation Type 1 Diabetes Mellitus without Complication Problem 07/05/2020 05:41:32 PM EDT [place] ([facility]) [id number] Type 1 diabetes mellitus without complic ation Type 1 Diabetes Mellitus without Complication Problem 07/05/2020 05:41:32 PM EDT [place] ([facility]) [id number] Acute ST segment elevation myocardial in farction Acute ST Segment Elevation Myocardial Infarction Problem 07/05/2020 05:41:32 PM EDT [place] ([facility]) [id number] Type 1 diabetes mellitus without complic ation Type 1 Diabetes Mellitus without Complication Problem 07/05/2020 05:41:32 PM EDT [place] ([facility]) [id number] Acute ST segment elevation myocardial in farction Acute ST Segment Elevation Myocardial Infarction Problem 07/05/2020 05:41:32 PM EDT [place] ([facility]) [id number] Type 1 diabetes mellitus without complic ation Type 1 Diabetes Mellitus without Complication Problem 07/05/2020 05:41:32 PM EDT [place] ([facility]) [id number] Acute ST segment elevation myocardial in farction Acute ST Segment Elevation Myocardial Infarction Problem 07/05/2020 05:41:32 PM EDT [place] ([facility]) [id number] Type 1 diabetes mellitus without complic ation Type 1 Diabetes Mellitus without Complication Problem 07/05/2020 05:41:32 PM EDT [place] ([facility]) [id number] Acute ST segment elevation myocardial in farction Acute ST Segment Elevation Myocardial Infarction Problem 07/05/2020 05:41:32 PM EDT [place] ([facility]) [id number] Type 1 diabetes mellitus without complic ation Type 1 Diabetes Mellitus without Complication Problem 07/05/2020 05:41:32 PM EDT [place] ([facility]) [id number] Acute ST segment elevation myocardial in farction Acute ST Segment Elevation Myocardial Infarction Problem 07/05/2020 05:41:32 PM EDT [place] ([facility]) [id number] Clinical finding Clinical Finding Problem 07/05/2020 05 :41:32 PM EDT [place] ([facility]) [id number] Acute ST segment elevation myocardial in farction Acute ST Segment Elevation Myocardial Infarction Problem 07/05/2020 05:41:32 PM EDT [place] ([facility]) [id number] Impotence Impotence Problem 07/14/2019 12:0 0:00 AM EDT - 01/21/2021 12:00:00 AM EDT [place] ([facility]) [id number] Impotence Impotence Problem 07/14/2019 12:0 0:00 AM EDT - 01/21/2021 12:00:00 AM EDT [place] ([facility]) [id number] Impotence Impotence Problem 07/14/2019 12:0 0:00 AM EDT - 01/21/2021 12:00:00 AM EDT [place] ([facility]) [id number] Impotence Impotence Problem 07/14/2019 12:0 0:00 AM EDT - 01/21/2021 12:00:00 AM EDT [place] ([facility]) [id number] Impotence Impotence Problem 07/14/2019 12:0 0:00 AM EDT - 01/21/2021 12:00:00 AM EDT [place] ([facility]) [id number] 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 Due to Periodontal Disease Problem 07/22/2018 12:00 :00 AM EDT - 12/11/2020 12:00:00 AM EDT [place] ([facility]) [id number] 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 Due to Periodontal Disease Problem 07/22/2018 12:00 :00 AM EDT - 12/11/2020 12:00:00 AM EDT [place] ([facility]) [id number] 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 Due to Periodontal Disease Problem 07/22/2018 12:00 :00 AM EDT - 12/11/2020 12:00:00 AM EDT [place] ([facility]) [id number] 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 Due to Periodontal Disease Problem 07/22/2018 12:00 :00 AM EDT - 12/11/2020 12:00:00 AM EDT [place] ([facility]) [id number] 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 Due to Periodontal Disease Problem 07/22/2018 12:00 :00 AM EDT - 12/11/2020 12:00:00 AM EDT [place] ([facility]) [id number] 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 Due to Periodontal Disease Problem 07/22/2018 12:00 :00 AM EDT - 12/11/2020 12:00:00 AM EDT [place] ([facility]) [id number] 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 Due to Periodontal Disease Problem 07/22/2018 12:00 :00 AM EDT - 12/11/2020 12:00:00 AM EDT [place] ([facility]) [id number] Coronary arteriosclerosis Coronary Arteriosclerosis Pr oblem 12/02/2016 12:00:00 AM EDT - 12/11/2020 12:00:00 AM EDT [place] ([facility]) [id number] Coronary arteriosclerosis Coronary Arteriosclerosis Pr oblem 12/02/2016 12:00:00 AM EDT - 12/11/2020 12:00:00 AM EDT [place] ([facility]) [id number] Coronary arteriosclerosis Coronary Arteriosclerosis Pr oblem 12/02/2016 12:00:00 AM EDT - 12/11/2020 12:00:00 AM EDT [place] ([facility]) [id number] Coronary arteriosclerosis Coronary Arteriosclerosis Pr oblem 12/02/2016 12:00:00 AM EDT - 12/11/2020 12:00:00 AM EDT [place] ([facility]) [id number] Coronary arteriosclerosis Coronary Arteriosclerosis Pr oblem 12/02/2016 12:00:00 AM EDT - 12/11/2020 12:00:00 AM EDT [place] ([facility]) [id number] Coronary arteriosclerosis Coronary Arteriosclerosis Pr oblem 12/02/2016 12:00:00 AM EDT - 12/11/2020 12:00:00 AM EDT [place] ([facility]) [id number] Coronary arteriosclerosis Coronary Arteriosclerosis Pr oblem 12/02/2016 12:00:00 AM EDT - 12/11/2020 12:00:00 AM EDT [place] ([facility]) [id number] Finding of esophagus Finding of Esophagus Problem 05/28/2016 12:00:00 AM EDT - 12/11/2020 12:00:00 AM EDT [place] ([facility]) [id number] Finding of esophagus Finding of Esophagus Problem 05/28/2016 12:00:00 AM EDT - 12/11/2020 12:00:00 AM EDT [place] ([facility]) [id number] Finding of esophagus Finding of Esophagus Problem 05/28/2016 12:00:00 AM EDT - 12/11/2020 12:00:00 AM EDT [place] ([facility]) [id number] Finding of esophagus Finding of Esophagus Problem 05/28/2016 12:00:00 AM EDT - 12/11/2020 12:00:00 AM EDT [place] ([facility]) [id number] Finding of esophagus Finding of Esophagus Problem 05/28/2016 12:00:00 AM EDT - 12/11/2020 12:00:00 AM EDT [place] ([facility]) [id number] Finding of esophagus Finding of Esophagus Problem 05/28/2016 12:00:00 AM EDT - 12/11/2020 12:00:00 AM EDT [place] ([facility]) [id number] Finding of esophagus Finding of Esophagus Problem 05/28/2016 12:00:00 AM EDT - 12/11/2020 12:00:00 AM EDT [place] ([facility]) [id number] Clinical finding Clinical Finding Problem 014 12:00:00 AM EDT - 07/11/2020 12:00:00 AM EDT [place] ([facility]) [id number] Clinical finding Clinical Finding Problem 014 12:00:00 AM EDT - 07/11/2020 12:00:00 AM EDT [place] ([facility]) [id number] Clinical finding Clinical Finding Problem 014 12:00:00 AM EDT - 07/11/2020 12:00:00 AM EDT [place] ([facility]) [id number] Clinical finding Clinical Finding Problem 014 12:00:00 AM EDT - 07/11/2020 12:00:00 AM EDT [place] ([facility]) [id number] Clinical finding Clinical Finding Problem 014 12:00:00 AM EDT - 07/11/2020 12:00:00 AM EDT [place] ([facility]) [id number] Clinical finding Clinical Finding Problem 014 12:00:00 AM EDT - 07/11/2020 12:00:00 AM EDT [place] ([facility]) [id number] Clinical finding Clinical Finding Problem 014 12:00:00 AM EDT - 07/11/2020 12:00:00 AM EDT [place] ([facility]) [id number] Clinical finding Clinical Finding Problem 014 12:00:00 AM EDT - 07/11/2020 12:00:00 AM EDT [place] ([facility]) [id number] Clinical finding Clinical Finding Problem 014 12:00:00 AM EDT - 07/11/2020 12:00:00 AM EDT [place] ([facility]) [id number] Clinical finding Clinical Finding Problem 12/11/2020 12 :00:00 AM EDT [place] ([facility]) [id number] Acute ST segment elevation myocardial in farction Acute ST Segment Elevation Myocardial Infarction Problem 02/12/2021 12:00:00 AM EDT A [place] ([facility]) [id number] Clinical finding Clinical Finding Problem 12/11/2020 12 :00:00 AM EDT [place] ([facility]) [id number] Acute ST segment elevation myocardial in farction Acute ST Segment Elevation Myocardial Infarction Problem 02/12/2021 12:00:00 AM EDT [place] ([facility]) [id number] Clinical finding Clinical Finding Problem 12/11/2020 12 :00:00 AM EDT [place] ([facility]) [id number] Acute ST segment elevation myocardial in farction Acute ST Segment Elevation Myocardial Infarction Problem 02/12/2021 12:00:00 AM EDT [place] ([facility]) [id number] Clinical finding Clinical Finding Problem 12/11/2020 12 :00:00 AM EDT [place] ([facility]) [id number] Acute ST segment elevation myocardial in farction Acute ST Segment Elevation Myocardial Infarction Problem 02/12/2021 12:00:00 AM EDT [place] ([facility]) [id number] Clinical finding Clinical Finding Problem 12/11/2020 12 :00:00 AM EDT [place] ([facility]) [id number] Clinical finding Clinical Finding Problem 12/11/2020 12 :00:00 AM EDT [place] ([facility]) [id number] Clinical finding Clinical Finding Problem 12/11/2020 12 :00:00 AM EDT [place] ([facility]) Surgeries/Procedures Procedure Description Date Indications Data Source(s) Diabetic Foot Exam 07/22/2021 12:00:00 AM EDT [place] ([facility]) OFFICE OUTPATIENT VISIT 25 MINUTES 07/22/2021 12:00:00 AM EDT [facility] ([facility]) Spirometry 05/29/2021 12:00:00 AM EDT Daphnie ORDOÑEZ ([facility], ) OFFICE OUTPATIENT VISIT 25 MINUTES 05/29/2021 12:00:00 AM [facility] DEMO&/EVAL OF PT UTILIZ AERSL GEN/NEB/INHLR/IPPB 04/17 12:00:00 AM [facility]T [facility] OFFICE OUTPATIENT VISIT 25 MINUTES 04/17/2021 12:00:00 AM [facility]T [facility] EST PT TG EXP PROB FOCUSED 04/12/2021 12 :00:00 AM EDT - 04/12/2021 12:00:00 AM EDT [facility] ([facility]) OFFICE OUTPATIENT NEW 45 MINUTES 04/03/2021 12:00:00 A M EDT [facility] ([facility], ) Amb Glucose Monitoring Interpretation And Report 03/21 12:00:00 AM EDT [facility] ([facility]) OFFICE OUTPATIENT VISIT 25 MINUTES 03/21/2021 12:00:00 AM EDT [facility] ([facility]) POCT GLUCOSE, DOCKED <td>POCT GLUCOSE, DOCKED</td ><td>Routine</td><td>02/19/2021 11:58 PM EDT</td><td></td><td> </td> 02/19/2021 11:58:[address] [facility] GLUCOSE QUANTITATIVE BLOOD XCPT REAGENT STRIP <td>POCT GLUCOSE, DOCKED</td><td>Routine</td><td>02/19/2021 1:34 PM EDT</td><td></td><td> </td> 02/19/2021 [facility]:34[facility], W/WO PROSTHESIS, SCROTAL/INGUINAL APPROACH <td>ORCHIECTOMY, SIMPLE, W/WO PROSTHESIS, SCROTAL/INGUINAL APPROACH</td><td></td><td>02/19/2021 10:37 AM EDT</td><td> Gender dysphoria</td><td></td> 02/19/2021 10:37:00 AM EDT - 02/19/2021 01:05:00 [facility] GLUCOSE QUANTITATIVE BLOOD XCPT REAGENT STRIP <td>POCT GLUCOSE, DOCKED</td><td>Routine</td><td>02/19/2021 8:00 AM EDT</td><td></td><td> </td> 02/19/2021 08:00:[address] [facility] CARDIAC REPORT <td>CARDIAC REPORT</td><td>< /td><td>02/15/2021 4:23 PM EDT</td><td></td><td></td> 02/15/2021 04:23:03 PM EDT [facility] CARDIAC REPORT <td>CARDIAC REPORT</td><td>< /td><td>02/15/2021 4:22 PM EDT</td><td></td><td></td> 02/15/2021 04:22:25 PM EDT [facility] CARDIAC REPORT <td>CARDIAC REPORT</td><td>< /td><td>02/15/2021 4:21 PM EDT</td><td></td><td></td> 02/15/2021 04:21:50 PM EDT [facility] LAB RESULTS (OUTSIDE/HISTORICAL) <td>LAB RESULTS (OUTSIDE/HISTORICAL)</td><td></td><td>02/13/2021 1:10 PM EDT</td><td></td><td></td> 02/13/2021 01:10:20 PM EDT [facility] CARDIAC REPORT <td>CARDIAC REPORT</td><td>< /td><td>02/13/2021 1:09 PM EDT</td><td></td><td></td> 02/13/2021 01:09:27 PM EDT [facility] LAB RESULTS (OUTSIDE/HISTORICAL) <td>LAB RESULTS (OUTSIDE/HISTORICAL)</td><td></td><td>02/11/2021 2:16 PM EDT</td><td></td><td></td> 02/11/2021 02:16:56 PM EDT [facility] LAB RESULTS (OUTSIDE/HISTORICAL) <td>LAB RESULTS (OUTSIDE/HISTORICAL)</td><td></td><td>02/11/2021 2:16 PM EDT</td><td></td><td></td> 02/11/2021 02:16:10 PM EDT [facility] Amb Glucose Monitoring Interpretation And Report 12/14 12:00:00 AM EDT [facility] ([facility]) OFFICE OUTPATIENT VISIT 25 MINUTES 12/14/2020 12:00:00 AM EDT [facility] ([facility]) Psychiatric Diag Eval W/Medical Service 11/15/2020 12: 00:00 AM EST [facility] ([facility]) UPPER NDSC BIOPSY SINGLE/MULTIPLE 11/05/2020 12:00:00 AM EST [facility] ([facility]) [employer]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 10/12/2020 12:00:00 AM EST - 10/12/2020 12:00:00 AM EST [facility] ([facility]) EST PT TG DETAILED 10/12/2020 12:00:00 AM EST - 2020 12:00:00 AM EST [facility] ([facility]) Amb Glucose Monitoring Interpretation And Report 09/20 12:00:00 AM EST [facility] ([facility]) TG PHONE EST PT E/M BY PHYS 11-20 MIN 1 12:00:00 AM EDT - 07/13/2020 12:00:00 AM EDT [facility] ([facility]) Results ID Date Data Source [id number] 07/22/2021 10:03:00 AM EDT [facility] ([facility]) Name Value Range Interpretation Code Description Data Whit rce(s) Supporting Document(s) Glucose [Mass/volume] in Serum or Plasma 171 [facility] Hemoglobin A1c/Hemoglobin.total in Blood 10.2 [facility]) ID Date Data Source [id number] 07/02/2021 08:00:00 PM EDT [facility] Name Value Range Interpretation Code Description Data Whit rce(s) Supporting Document(s) SARS coronavirus 2 RNA [Presence] in Res piratory specimen by DONAVAN with probe detection POSITIVE [facility] This lab was ordered by [facility] a nd reported by [facility]. ID Date Data Source [id number] 06/03/2021 09:00:00 AM EDT [facility] ([facility]) Name Value Range Interpretation Code Description Data Whit rce(s) Supporting Document(s) Creatinine [Mass/volume] in Urine 49.8 mg/dL [facility] Microalbumin [Mass/volume] in Urine Laboratory test result [facility] ([facility]) Microalbumin/Creatinine [Mass Ratio] in Urine 10.0 MCG/MG 0.0-30.0 [facility]) THE [place] STATES THAT MICROALBUMINURIA IS PRESENT IF THE MICROALBUMIN/CREATININE RATIO EXCEEDS 30 MCG/MG. THE THRESHOLD FOR CLINICAL ALBUMINURIA IS REACHED AT 300 MCG/MG. THE CLASSIFICATION OF A PATIENT SHOULD BE BASED UPON AT LEAST 2 OF 3 ABNORMAL RESULTS ON SPECIMENS COLLECTED WITHIN A 3 TO 6 MONTH TIME FRAME. ID Date Data Source [id number] 06/03/2021 09:00:00 AM EDT [facility] ([facility]) Name Value Range Interpretation Code Description Data Whit rce(s) Supporting Document(s) White Blood Count 6.3 10 4.0-10.0 [facility] ([facility]) Hematocrit 41.3 % 42.0-52.0 [facility] ([facility] Red Blood Count 4.46 10 4.30-6.10 [facility] ([facility]) Hemoglobin 13.5 g/dL 13.5-17.5 [facility] ([facility]) Mean Corpuscular Volume 92.6 fl 80.0-96.0 M [facility] ([facility]) Mean Corpuscular Hemoglobin 30.3 pg 27.0-33.0 [facility] ([facility]) Mean Corpuscular HGB Conc 32.7 g/dL 32.0-36.5 [facility] ([facility]) Platelet Count, Automated 237 10 150-450 [facility] ([facility]) Red Cell Distribution Width 13.5 % 11.5-14.5 [facility] ([facility]) Nucleated Red Blood Cell % 0.0 % 0-0 [facility] ([facility]) ID Date Data Source [id number] 06/03/2021 09:00:00 AM EDT [facility] ([facility]) Name Value Range Interpretation Code Description Data Whit rce(s) Supporting Document(s) Triglycerides Level 64 mg/dL [facility] ([facility] LDL Cholesterol 71 mg/dL [facility] ([facility]) Cholesterol Level 150 mg/dL [facility] ([facility]) HDL Cholesterol 66 mg/dL [facility] ([facility]) Cholesterol Risk Ratio 2.272 [facility] ([facility]) Non-HDL-C 84 mg/dL [facility] ID Date Data Source [id number] 06/03/2021 09:00:00 AM EDT [facility] ([facility]) Name Value Range Interpretation Code Description Data Whit rce(s) Supporting Document(s) Estradiol (E2) [Moles/volume] in Serum or Plasma by Hi gh sensitivity method 139.5 pg/mL 8.0-35.0 [facility] ([facility]) This test was developed and its performa nce characteristics determined by [facility]. It has not been cleared by the Food and Drug Administration. Methodology: Liquid chromatography tandem mass spectrometry(LC/MS/MS) Performed at: [address], [place], [place] [address] 61 Nuclear Medicine Officer: Marlys Jin MD, Phone: [phone] Testosterone [Mass/volume] in Serum or Plasma 20 ng/dL [phone] [facility] ([facility]) NORMAL RANGES ARE FOR ADULT FEMALES (OVE R 15 YRS) AND MALES (OVER 19 YRS). FOR PEDIATRIC RANGES PLE ASE CONSULT LITERATURE. ID Date Data Source [id number] 05/29/2021 12:35:00 PM EDT [facility] ([facility], ) Name Value Range Interpretation Code Description Data Whit rce(s) Supporting Document(s) FVC-Pred 5.12 L [facility] ([facility], ) PDFReport Laboratory test result [facility] ([facility], ) FVC-%Pred-Pre 60 L [facility] ([facility], ) FVC-LLN 4.16 L [facility] ([facility]) FVC-Pre 3.12 L [facility] ([facility]) Fev1-Pre 2.58 L [facility] ([facility]) Fev1-%Pred-Pre 65 L [facility] ([facility]) Fev1-Pred 3.93 L [facility] ([facility]) Fev1-LLN 3.12 L [facility] ([facility]) Fev6-Pred 4.92 L [facility] ([facility]) Fev6-Pre 3.12 L [facility] ([facility]) Fev6-%Pred-Pre 63 L [facility] ([facility]) Fev6-LLN 3.99 L [facility] ([facility]) Qke2vdk-Fucd 77 % [facility] ([facility]) Pyv0pxl-Aac 83 % [facility] ([facility]) Jjm5zkm-%Pred-Pre 107 % [facility] ([facility], ) Bbp5izx-OXR 67 % [facility] ([facility]) Kcg9xsb-Xbno 96 % [facility] ([facility]) Vti5fbb-Xva 100 % [facility] ([facility]) Icl5nyj-%Pred-Pre 104 % [facility] ([facility]) FEFMax-Pre 6.45 L/E/sec [facility] ([facility]) FEFMax-Pred 9.84 L/E/sec [facility] ([facility]) FEFMax-%Pred-Pre 65 L/E/sec [facility] ([facility]) Fqq3971-Fkvx 3.37 L/E/sec [facility] ([facility]) Hsx6228-Ffz 3.08 L/E/sec [facility] ([facility]) FEFMax-LLN 7.45 L/E/sec [facility] ([facility]) Qyv7852-TXI 1.72 L/E/sec [facility] ([facility]) Qlp7000-%Pred-Pre 91 L/E/sec [facility] ([facility]) ExpTime-Pre 6.24 sec [facility] ([facility]) Cly5lud1-Lhvj 80 % [facility] ([facility]) Asi7znj8-Eer 83 % [facility] ([facility]) Stb6svv4-%Pred-Pre 103 % [facility] ([facility]) Frt9iqj4-EPH 71 % [facility] ([facility]) ID Date Data Source [id number] 05/10/2021 03:54:54 PM EDT [facility] Name Value Range Interpretation Code Description Data Whit rce(s) Supporting Document(s) Progress Note [facility] [id number] lbm [file] AgICAgICAgICAgICAgICAgICAgICAgICAgICAgICAg ICAgICAgICAgICAgICAgICAgICAgICAgICAgICAgICAgICAgICAgICAgICAgICAgICAgICAgICAgICAg ICANCiAgICAgICAgICAgICAgICAgICAgICAgICAgICAgICAgICAgICAgICAgICAgICAgICAgICAgICAg ICAgICAgICAgICAgICAgICAgICAgICAgICAgICAgIC AgICAgICAgICAgICANCiAgICAgICAgICAgICAgICAgICAgICAgICAgICAgICAgICAgICAgICAgICAgIC AgICAgICAgICAgICAgICAgICAgICAgICAgICAgICAgICAgICAgICAgICAgICAgICAgICAgICANCiAgIC AgICAgICAgICAgICAgICAgICAgICAgICAgICAgICAg ICAgICAgICAgICAgICAgICAgICAgICAgICAgICAgICAgICAgICAgICAgICAgICAgICAgICAgICAgICAg ICAgICANCiAgICAgICAgICAgICAgICAgICAgICAgICAgICAgICAgICAgICAgICAgICAgICAgICAgICAg ICAgICAgICAgICAgICAgICAgICAgICAgICAgICAgIC AgICAgICAgICAgICAgICANCiAgICAgICAgICAgICAgICAgICAgICAgICAgICAgICAgICAgICAgICAgIC AgICAgICAgICAgICAgICAgICAgICAgICAgICAgICAgICAgICAgICAgICAgICAgICAgICAgICAgICANCi AgICAgICAgICAgICAgICAgICAgICAgICAgICAgICAg ICAgICAgICAgICAgICAgICAgICAgICAgICAgICAgICAgICAgICAgICAgICAgICAgICAgICAgICAgICAg ICAgICAgICANCiAgICAgICAgICAgICAgICAgICAgICAgICAgICAgICAgICAgICAgICAgICAgICAgICAg ICAgICAgICAgICAgICAgICAgICAgICAgICAgICAgIC AgICAgICAgICAgICAgICAgICANCiAgICAgICAgICAgICAgICAgICAgICAgICAgICAgICAgICAgICAgIC AgICAgICAgICAgICAgICAgICAgICAgICAgICAgICAgICAgICAgICAgICAgICAgICAgICAgICAgICAgIC ANCiAgICAgICAgICAgICAgICAgICAgICAgICAgICAg ICAgICAgICAgICAgICAgICAgICAgICAgICAgICAgICAgICAgICAgICAgICAgICAgICAgICAgICAgICAg ICAgICAgICAgICANCjw/qCUdD1syzOMveeX1Y0tgTk6YJz1CSG5me4JiFCEmVJzcesImYztSIxErMXPd DvySRos6XWdbJP8FaXMkR7EpZ0TcZBlfRP7WZCVaKB CwoMVrTXMyUUZsHwP4LZUbSFlyDO0MeCWwGRxvKEYgUCAeCV2ZFIXvP238qsGwOF6EVe0ZGyJcWW7rkw 2XXwJkCULjQkdHGoo7ILaxAY0OzAQliFXnAkKdAARYUiLkB3wsg7XyLpAvUCTBCSywUA8Ll5YjpEIgVK o+Xm3ISS5jj4QzYSzfPeMqFU5gdo7WGPlHXeIoB4Oe xSccADFpa0yuMTRfGH5zgRRrJMK2WMEvdCUfvLgqPtivk5fsvvGdoUgyXGMkMFTfQc6aRa9jQQYtARRo ZrJfAHRDKM9AFEPwFKSupQHpWJLdSJEJRJ9WCDooPNR7HBZqxvZnrKEtCAuvCD9BNZCziqKvEaXmQPLR DQo+Fd8DPA0hg3OzQEqbEUNvFG0oqs4IURcGRbPwG0 M3hLNdD7Z4PBtjDj1KQPTfAFMrSoXkQVYPSNzfTI3LYH7vxwT0DH5FdXIhVKTlELEupDIiODq6K38xmP EaLCmsNU6FTVN+Ирина+Sq6THXViVEYnJBJgGgOkZQJDKiFrG3QfC9WWx4YlE5DnJC25yGgvptVoQXkmZP 2MGU3hBRQzUBOPFL6SwDThfM5zohFxAgOeZGMOFuAp Z19qkBCiICVjYREcZYQlVr7XAZKzS0EateZntXnoorTrZPUuNOVIRT4GJPgoeaTaiTPzuImsKB75iHak UK9CIw3SOfDaPL9bcd3MkNRkFb1DBNSmLJ2PEUXlEJErNDFoVKK6BXQbRgDxYMxzJUCqSHLhMXP2GXJg RCUpSP9ABlAbDULzPQbnBasrHFUmYYUils2WZHHuBH IdFWKrVjYxTKZuIEVqBLfnYJEeDWDbFFZ2FGFaUMGvNV4YGqAgVKCjVEL9UCbpOZGcBUYfjz3KMMUpQR CcOyGhYzKuNCMpKSXjRYaqUNBkQORoJLwbAZVeRZRiUV8NNcUmNLBuXPUyLoujYJZmHMGdds0FCUIxEA ZyOkQ3VOBxMFVpWROzACncTBLcPTY8QEQ7NUFrKSIx OY7JIiPcSQGmWYF8GHuoLRXcBVJghp7GJJTvITXlZMy4JOQnDTCcXEEvFFewWLJbZMI7XUKhXZVmDSZb GZ0WHtKjWGGiUZS7ZvMcDBUoPJCpvf8QSWEfLWZaUyC9QRSqDSVqYXSbVSizJKTuWHX2HBJ9WXVpURCs SW4HQjBgHCKpZQzqEqGsYCIiBEVpxa2ZJADyBUKdIV EgDTDoESBwVXHuFEoyWFPwCWA3DAq2TEEqMQQnWF6NXdVkHOFeOAppWMbpRGIyWVAxvf3JBGKlNWUcCC e9OrBoSVYbHSYrBSvpUPGsCMBhIcShOTYdTFKtMB2OOvRsZJGzDmKzZMRmLXFaPEZtrm2RUKDvOKWdEP YnMWIcQWVjYHBpEVg1asCvlUPaXJz5JS5JO1OmipYu SiDLHt5Tz730ZKV0ZXGfCp9PM3soNf6hWOKnHTWOFm7OZQv4AgB8YjX3VaNpECTwR7FtXRBkD6YqKzQ7 ZpWaBKB0Pov+CUa9IoRaMUOlDiRrISUxMfF5PKQkDpEvOQGgMjFqYCG0Od3yFIRIKi0+DQpzdGFydHhy XRLSZzMlSro6URivBKWYWl5N ID Date Data Source [id number] 03/21/2021 02:28:00 PM EDT [facility] ([facility]) Name Value Range Interpretation Code Description Data Whit rce(s) Supporting Document(s) Hemoglobin A1c/Hemoglobin.total in Blood Laboratory test result [facility] ([facility]) Glucose [Mass/volume] in Serum or Plasma 213 [facility] ([facility]) ID Date Data Source [id number] 02/26/2021 10:26:56 AM EDT [facility] Name Value Range Interpretation Code Description Data Whit rce(s) Supporting Document(s) Discharge Summary [facility] EVWMOf6bYpCKKbLh02/IQOmjLJWbv9YdHPntEOe8ZAvxGLChO3NwUVC0xB6cUBQ7OYrJJjNvAaNrOsE4 m [file] ICAgICAgICAgICAgICAgICAgICAgICAgICAgICAgICAgICAgICAgICAgICAgICAgICAgICAgICAgICAg POPvKSGdMGTjYHVyRV0DTBBdKWHhCREvSQXuIDJkQB AgICAgICAgICAgICAgICAgICAgICAgICAgICAgICAgICAgICAgICAgICAgICAgICAgICAgICAgICAgIC AyZZWlJAFwAVLtCYMrUJVzEBUtZHRlSY6ASVTkUCBkPDFmUIFvJDSkRVZrBRLwECWoPUEnACPlVHIfCG AgICAgICAgICAgICAgICAgICAgICAgICAgICAgICAg EJWsFLVeYJWwUXAnWXNsISNwMISfQWSbOFXwPLWqHBVrIJ5WFRPfHLElBBOjWCYdBPDxTTLdUMJuUZSb ICAgICAgICAgICAgICAgICAgICAgICAgICAgICAgICAgICAgICAgICAgICAgICAgICAgICAgICAgICAg DFKjKEAdTHPcMSPdNHJkMB9BRWKrHVVbTEBiDVEbCQ AgICAgICAgICAgICAgICAgICAgICAgICAgICAgICAgICAgICAgICAgICAgICAgICAgICAgICAgICAgIC MlGWNpYEWcIWSqSXXzIPZfVSYgLXSeQTWnQS4BLBNrDRZzYZUjVSMwSEZjWFGjYRGdUPWeDNFkOLDgHD AgICAgICAgICAgICAgICAgICAgICAgICAgICAgICAg HUGuTDSmWBDqRCMxZXHaRXPwTIQjDQPiDDYzIQJdVVVmJSKbBU1HWLVbGIAuVJAzDSUuIHVrHOYdGUQz ICAgICAgICAgICAgICAgICAgICAgICAgICAgICAgICAgICAgICAgICAgICAgICAgICAgICAgICAgICAg HDLaVPMjKOIjXZKmBLHtTHBuHD9PXUHeVMBuXANnPI AgICAgICAgICAgICAgICAgICAgICAgICAgICAgICAgICAgICAgICAgICAgICAgICAgICAgICAgICAgIC GgBYYuCPWpRFWcLCXfOFBpEBPwFUYvXTHaCNQoLK0AHLXiWTYoKABuAMUxLVKdVSNqJRAsFWKvWZSrNJ AgICAgICAgICAgICAgICAgICAgICAgICAgICAgICAg NSPnYAYsQLOmEZUbMXHuBOAsSJGeIJOyRAItPFAjZBUaMCFrZHMuON3VIHZwOAOpLVYwGFWcRPXmXVTy ICAgICAgICAgICAgICAgICAgICAgICAgICAgICAgICAgICAgICAgICAgICAgICAgICAgICAgICAgICAg NUVsDZAuPLPkZYKrCVQoCNYrKEQbVR0OUG52fKHcj9 F3NYVoCP6qupy/Qc0IPJjimmLvqFSsJM1YQcIdRK8nnm0RRcDdUQ5wpj3BJQiEVrWvD2B3nSOcCSExRA OBErQrZ32qCPepZy16MOvkNYTzPbEnVHk3Wb6NUgVnB3ngGDZbQpD7GPUgHuL0WUBsSzN8LLVnLiZdCW YrWBSbCI5TBLReB481izKmNJ5JOd9FYkCtCS0lro1I BxPyHVCrLszTCvn0YLriVS4TzARktOUhSRNvBRSZJsNuM5ant5VpDvFgNCQTNRutQI5Ax1InqSPpLLo+ Uw7QFK6gg1HtQZdfODUxZR3iwt8DZAqAKkWaL1XjeChgRYCyl3QyYAIxRTZGuR0xELJ8ZIB5ZSLitDSi hIdwYvfmy5bnslVbmJnoTZRjDNEvOw1qOiPpLmKdTD q9TzLqTT5nHGnpFB4CDMD4CXiqNQBpGAMxE5oKNbEzDMRiBDKdxZlxFV1DYfPuJ1GardKrtIAiCLCzDO INCj4+SQnzbbZpSkeALaK3HEDat2NjBVp0OX8OQQEkNJgyHK1GNRWrjE0dOMoeVH2AWxChJwGiYYCPJi CdV62vzPVwVAo2A3BoKqEaKQPhOqzaZBFeTPtwAxSz ZXMgWyBdDQogID4+ID4+HNjkXW4DYOmippBtSRQmQh7QIACtPKFsNK4bMQSqCYBbJ5Z2eRolDTPSBaJq A3byjhfvHB1fPBVhY209aWyesvEzQEE2KTVpHu1YHEVlCKW4EBSqsXQnYyTiZQKHEFnuIE6AaZHqIXD5 kC4gXZwzCWQyDURcG2yFCkRluIrlSH08gLscqtBphM BdDQo+Kn1FXL0mf1HjXJg1uqQbFZalNAI9WCtxIPHdMCItIGWwQJY3ETS3BRGLHmUjQEXzGLNuYDluMR VwGTErbn9OQOKzRDIoHZP2FzKmUZWoFBLxIPbqTIHmUBIiIbVwDPBzVJUcSU0PNnSpTUIkQVAhLQcmWN FbQAKuwi7EXNQwUAVeOvnjXwDcLZCaGIEaVDbiTPVd RDJqXCDkGADlEADtVS4FMeAfAFHoQCM0NHtjUZEyBHYgnr3QOBFlUWKwDxK5FYScXXLyKPDnDLfcDLTj YKGoRUG4XMHfLKJnKE3SBjKdAXNvFAQhPQNzUOSzNCLeex3ZPZZnVAZgJgAlZrMxFDHuEQVsFFmkMWGk RVAxTNW7ZEYwKMPtGV0YRvGdIEZiJCWwPHloURKoEB Xuxn4FTUTkTDFdIaV9HkQbBCHbXJJqZEjnURUlTXCyCrh3TETxKGWhOM5TVqUzQUUpHPG3TckvGGNpJX Tvqn9TCTQhRCWkGUv9KDVyLKQzOXRxMWlfODLgONN9LUV3FDTfXSHzVX9KFiPsXEZuWWLcFVnpAEOuYO Xjgt3ZMSJzWLOnWmC9BCOfDYHmZRJsISxrLOUvLKN4 RVC5ABXuNBUfAX7WSlThAQKmPBb8IjvcZFMiFWZspf5CXNRhDJUpUvPmGBObIMVjONRyPTyqMKOpPAR3 SFK2VXDzQNEiZA6GKmCdPVIkXuwtVBShOZAqNJUovh9JTBUxZNDzCNCuZCTgGEThCOBsIEvmGXOxXIX1 BjW3UWJrPKJcDI0EStXyJHCiCsy5BaqqBOSzBETsui 3XWFPzSTVyDAQmCXOwSNXsUEPrPScdLKAmLBCdHPC9LHVvFPBkGF7OIrQwAKKzKnMuHWMvYRKlGRQyhq 2DRPYzERJoXJJrOZZeYWVvEOCvJNeoZGIcFGTsXEfzQOFhIAHwLS6QCeBfXRIuPdWmKsDxOFArTOMajt 4EUEBpYLEsDkGcMMNsDTTwNREoONykVSJvEBXgDOT9 XRHmQMUwGT0RLlEoVXhhMYSQTcu1MFjxQ8h5QCEbLn2KA4Zxn3DySrWbOWZHMWpsVA2utsMxBLQvGm7P I0nATvw2ZyLaSAs4BVFoCgSdPWDpTKBlZiA6JHYzNRppPZPhZb6cDQWtUyUnOBGhGrRrPBN7IFQ1MTF6 IGi3NWIbFKQnYDQ8BeUrWT3LBc3URyV8KXQ6wAZtDl9IWsS1RYNIPiWlBK3DJTm= ID Date Data Source [id number] 02/21/2021 10:37:39 AM EDT [facility] Name Value Range Interpretation Code Description Data Whit rce(s) Supporting Document(s) Progress Note [facility] EDUZEq4qWgESJbXy72/GBOvjSIWff9SbBLbpXOc1LOthYMHlL7UlHRD3rY9zMAH5DAyENmYbAiMkJsNl lbm [file] ZF4QBUw= ID Date Data Source [id number] 02/21/2021 10:33:22 AM EDT [facility] Name Value Range Interpretation Code Description Data Whit rce(s) Supporting Document(s) Operative Note [facility] HEEFQj2uKbGAVbVv45/QHNmbUUAbj4BjTLszHZj1ORhfAPRiZ9QxVTD5hF6uKNY9RLhDGuWsWjUeBiSo m [file] CiAgICAgICAgICAgICAgICAgICAgICAgICAgICAgICAgICAgICAgICAgICAgICAgICAgICAgICAgICAg ICAgICAgICAgICAgICAgICAgICAgICAgICAgICAgICAgICAgICAgICANCiAgICAgICAgICAgICAgICAg ICAgICAgICAgICAgICAgICAgICAgICAgICAgICAgIC AgICAgICAgICAgICAgICAgICAgICAgICAgICAgICAgICAgICAgICAgICAgICAgICAgICANCiAgICAgIC AgICAgICAgICAgICAgICAgICAgICAgICAgICAgICAgICAgICAgICAgICAgICAgICAgICAgICAgICAgIC AgICAgICAgICAgICAgICAgICAgICAgICAgICAgICAg ICANCiAgICAgICAgICAgICAgICAgICAgICAgICAgICAgICAgICAgICAgICAgICAgICAgICAgICAgICAg ICAgICAgICAgICAgICAgICAgICAgICAgICAgICAgICAgICAgICAgICAgICANCiAgICAgICAgICAgICAg ICAgICAgICAgICAgICAgICAgICAgICAgICAgICAgIC AgICAgICAgICAgICAgICAgICAgICAgICAgICAgICAgICAgICAgICAgICAgICAgICAgICAgICANCiAgIC AgICAgICAgICAgICAgICAgICAgICAgICAgICAgICAgICAgICAgICAgICAgICAgICAgICAgICAgICAgIC AgICAgICAgICAgICAgICAgICAgICAgICAgICAgICAg ICAgICANCiAgICAgICAgICAgICAgICAgICAgICAgICAgICAgICAgICAgICAgICAgICAgICAgICAgICAg ICAgICAgICAgICAgICAgICAgICAgICAgICAgICAgICAgICAgICAgICAgICAgICANCiAgICAgICAgICAg ICAgICAgICAgICAgICAgICAgICAgICAgICAgICAgIC AgICAgICAgICAgICAgICAgICAgICAgICAgICAgICAgICAgICAgICAgICAgICAgICAgICAgICAgICANCi AgICAgICAgICAgICAgICAgICAgICAgICAgICAgICAgICAgICAgICAgICAgICAgICAgICAgICAgICAgIC AgICAgICAgICAgICAgICAgICAgICAgICAgICAgICAg ICAgICAgICANCiAgICAgICAgICAgICAgICAgICAgICAgICAgICAgICAgICAgICAgICAgICAgICAgICAg ICAgICAgICAgICAgICAgICAgICAgICAgICAgICAgICAgICAgICAgICAgICAgICAgICANCjw/jLJaW6tn bQPvxiH7W8jgBb2ZAe5LES2hh0ObDPThNKxdafCoUd dPLaEoZTMgJuqAGya2YMgxDD1PiUGfH7WyR8IaTBlkQM6XKKLqHBTpxDHhUHGnWMMaBmH1DFGpTUtxDU 0VrHIwZTldLWAePXMsSoGfJWFvGK1WQDRaH552abOnZr4HQw7JBtYnSQ6ako4OAyVuRERaHquLPhd3DT fwYJ2OcMVcvMBhQrGvZRFHKrZmR9fth2UwUzCnENKB HZmpUP1Kq6PzjOWxXXc+Wy3CER4xi3TeDNuqNqJsTC2vdh8VGFdDZtDhK2RhnOzbGV4xUJGntAv6RVOK k2SrGFO5HNLplIYxaDebGqjdj8mrpvJvfYbmPSClALMzVp0kKzVzIpCyBRW1AZjaCP4sFGfdOH2TCUH8 WCwiYEAtZTLfD6lPZlKzEACuUCPikUvrTC6AIqUcW5 BhcmVudCAyNSAwIFINCj4+KUoaalBbFtgHBdX1GFKea7EsGZm4SJ3GYWPjXJhqBV1MXPFrcN5iVFdpCK 3KPwMiWxXdUXUTKmZqT99duKNkLLe4J8IfLuPbBJDyMgmkKVJsKVlsWcIkWKBpYnLjUAlsBZ4+ID4+DQ wuNS9APOlancRmDMHzTw8GNZWnZIBjKA3gSFZbMOHn P0L9iRhlJIFNWxSqG5optnwrWM6lMKNmI436kAdiinApLDL2SSVdXg4YEYEaLFT2GTHnoIQeHfUcAWTJ FJiaPK9NyLQwIRL3jR5nSUpoAQClZYKsY1vICuFmvAiaAJ17sSeivvGynWZsPMt+Pc3BBB5qj3JvNEc7 hjQnCJkhLNG9APcqSJCpYZLvEKIfIZX9RSK8AYQPYb JwGDSsFPIeRKjoZXHaDRCuwb2OEAStUQOqWlMhBOZgZSNqJMFsPHfjQDBeJRO9YvS8CYFxAXKsIP1MHn AqGVZcAZLrHNqlMNQeKKJjew2VBKLjXRZgHfVmGEWqCGHtFCVgQEeoUMIcNGNlDrY1SKDcPBNnCX1MHt NcBFJnIUS9LtVmVXLkRWAjha0QQWUzMNVdBhx1ChTi ZWEvMKXtDGyaAWWpBZD4RqF8ULDsSWWoMX0LUmIjQJLfENy7LwTcORFgNJNtqn8GJHPhQURcXNLhQoOa LWPkAILhYFncVXGzMVQ2SThqEKZhGBZnBG8HEwAzPCEtXGarQxRhTCGkXXPbhr2NUBEhXXPxYSR4ZlQz BDCqMECxTBniTGKiMPYhRYSwSNYeAUKwGP6XCeVbIL BhQZG9EvKyRPPsRSEuik8MYDHoGHSzMTayEJQqLTSlPMKwGKhlRCWuRADjJpugFMAqLKMaMS2STaXiYM PqUMD4XldzVCRxFNDupr8LINVwENYnGwK4YRUoEKYmLZKrLQlrNUIkEOPmZGCyCMMiYXNdKH4GFfFxZR CeRXHwWVOcINRmZNRdss8ZKTVtYKRsBdDoMHYyNWOy WNYnBIzgINJnDXRgXPS7XSRfEKOeEF6YQoFgFQCsSPM3JAxpCRPuNHGovq9STLUhOEJsCRT1LHPgVDBx CDJdAFqaOSKwOVH0DeJgIDNqWNDgGR6FGiNoAYwaJEGNTwt8VNigY3t1EFKrDV8WL0Gas0FdKdgxYTRO RGrsQD2vsuUpBKKhIf4SL1xFJno0UJEkOyZ6UxQwDZ ArSZIbSQCnQ0StVRCkTFSoKvYiJD6uJXhrG4KwHjhbNcN3KREdZEDvAiSuGaJsFKBiGOV7LvU8CkIbTB 2CGa2PVnD9MVT0sBGhCs1YQWK5CbXJRsGwIT7ZSRc= ID Date Data Source [id number] 02/20/2021 05:41:58 AM EDT [facility] Name Value Range Interpretation Code Description Data Whit rce(s) Supporting Document(s) Progress Note [facility] BZDAEk3wKoXUTqKz73/HBUrsGIKcn5YcSOvkKEd7BGcqBLRxE2ElGOZ4gE1cFGV1BEeHHmUsZfZkOwFu lbm [file] AgICAgICAgICAgICAgICAgICAgICAgICAgICAgICAg ICAgICAgICAgICAgICAgDQogICAgICAgICAgICAgICAgICAgICAgICAgICAgICAgICAgICAgICAgICAg ICAgICAgICAgICAgICAgICAgICAgICAgICAgICAgICAgICAgICAgICAgICAgICAgICAgICAgICAgDQog ICAgICAgICAgICAgICAgICAgICAgICAgICAgICAgIC AgICAgICAgICAgICAgICAgICAgICAgICAgICAgICAgICAgICAgICAgICAgICAgICAgICAgICAgICAgIC AgICAgICAgDQogICAgICAgICAgICAgICAgICAgICAgICAgICAgICAgICAgICAgICAgICAgICAgICAgIC AgICAgICAgICAgICAgICAgICAgICAgICAgICAgICAg ICAgICAgICAgICAgICAgICAgDQogICAgICAgICAgICAgICAgICAgICAgICAgICAgICAgICAgICAgICAg ICAgICAgICAgICAgICAgICAgICAgICAgICAgICAgICAgICAgICAgICAgICAgICAgICAgICAgICAgICAg DQogICAgICAgICAgICAgICAgICAgICAgICAgICAgIC AgICAgICAgICAgICAgICAgICAgICAgICAgICAgICAgICAgICAgICAgICAgICAgICAgICAgICAgICAgIC AgICAgICAgICAgDQogICAgICAgICAgICAgICAgICAgICAgICAgICAgICAgICAgICAgICAgICAgICAgIC AgICAgICAgICAgICAgICAgICAgICAgICAgICAgICAg ICAgICAgICAgICAgICAgICAgICAgDQogICAgICAgICAgICAgICAgICAgICAgICAgICAgICAgICAgICAg ICAgICAgICAgICAgICAgICAgICAgICAgICAgICAgICAgICAgICAgICAgICAgICAgICAgICAgICAgICAg ICAgDQogICAgICAgICAgICAgICAgICAgICAgICAgIC AgICAgICAgICAgICAgICAgICAgICAgICAgICAgICAgICAgICAgICAgICAgICAgICAgICAgICAgICAgIC AgICAgICAgICAgICAgDQogICAgICAgICAgICAgICAgICAgICAgICAgICAgICAgICAgICAgICAgICAgIC AgICAgICAgICAgICAgICAgICAgICAgICAgICAgICAg VZEuZEUsOIZuKTYlPKQxJVAmHVOyIKNkJXy3V9olIXCtYNUhVN6vNQr6Ak2+IDvALhOdDWJ8wiNyqI4N JI4xr7GwYMrzDNHwc8NiCSz1PW2FGKFaKVyaZE3QEOsktg5ISQMuTTGnvAREi8laFbJkJSS1XNUuWbqd FK2XXHVoN4vinrEfEOSjAEHWEF4NDmIcN5EfgP11AD ENCj4+OFlzcaEkPifXHjP1ABMtz5UfLFi4BN6HFPFzSnmlf7BfQJBfSTOTLUvwJO6SPVB1UDM1YMBnEv 1KGDYwL316jkCmQX1VUn2UDcYuXQ5nam8HXAAcNWJbIlaAQgw5YSpjEO5OwQOiBIjIhr3qsfWqxsMGn7 PxusZtkNHPJHXzsMFpVUCQKTwzd0H1JFEvXUCAELDf hTQ2EtTwFgFuDBMyTVosCUUFQDqDLcPjI9Ocu2CpKdI6URPbQyJdFTryLYKnGwK8PT75gYzpAM1XFLWz XELsNW63BIE9ZKLxGg5CIg5IHtCbTM5pfb7TDMByUORzEglNAbn4GRbdRU1QdRKkO6NvfTUji6vIOfKr J4MWHWNvHGOxBe8DZSRwVmLfKIIbCRteSL8aTTPpBO TIiXyidpK9XF1AZR1iuwStMS1TCgZdSc9xWy6JToJbD4ZbP1IcOIKnZYFUNNlcAO7RZXsaAO7hDS4Sd2 RQuSUuuW6vuu6NYFZoSNSbBiliju1QEqpcF8A3xMbxYYXxIVBdDNNWBJmtCM6UAHXiYCW5MGAnBbSvOZ ZWNcKrA81jWB4LX1Wsr26fHhP3MLXhPqLaCCtrTA19 zSvuzgXpoFQcyFtgRG6DNs1+UUfsbxWhTqkCZihvXUPTCgVrSEcNMeUbLPBdWRHxYSWdKnG0LdYfCb8I IBXbMPVxMSPsXoRjUEZvYMIdNRpaAFAuKTH5KrWwSZWgVMVzKC6BMmYaVNDbSTI2DoBgBXQdKHNmlb8J NVDdUHZaCAM9XoTrTRRsSIHmBVwoDGPlKHUiENZaWX UrIRLzDD6TZkNkGVXqEKVzEXUbPRAoOOFizy4IXKGyRUObSvc1LNYjGUClMEKwBWwuDDCnBOAxEGHbKG IhRTRdIK5ONdNiVTMkYRWzXDNbZISnRKNisz9SRLZnHZEsEIK4BGWbRMEhTWLiUGgrOULjNMN1BHLwMI JuBGUdGC2NRdYeAHGbIVM1UIegINXmQKFkwo4HFHId KJQrOZQ7XQXeXQTxEPCiLFgdXGGtZUS5DCX9IFQcDKChSC2WXwXwDEWlMPP7PHTtUEBlAFAayq6WJCNj HCUlRny0VnRhLYKgFLQzSPu4hwYfpZYqRJw4UN7OH9ZstoLxINbDCa5Ze565ZFS5TWHrYs2LS1byPp2e BSItGOFNMk6HQSc7SOy8JBG2RXY9I0J9FNBcSeU2VC Z5IbZoP4FaEnEbHWA+NJicVdT8RebuMNnrCNysSVJjKVU9MOizSvUvLZCiD1DdQn0lIQETFb9+DQpzdG UqoRugLADHAoK2ZOuFLjIfVY7EHDz= ID Date Data Source [id number] 02/20/2021 12:05:54 AM EDT [facility] Name Value Range Interpretation Code Description Data Whit rce(s) Supporting Document(s) Glucose [Mass/volume] in Capillary blood by Glucometer 144 mg/dL 70- 140 [facility] ID Date Data Source [id number] 02/19/2021 05:46:00 PM EDT [facility] Name Value Range Interpretation Code Description Data Whit rce(s) Supporting Document(s) Progress Note [facility] UZHFJm5dUaYHWzSj32/EDSjmHIPip5TeYQfbLMq1JEcgQPMhS6AaTIV0rV6lXWT9DWeUIwVqErYtVnTr lbm [file] DFSoRmDJ0XYZw= ID Date Data Source [id number] 02/19/2021 01:37:53 PM EDT [facility] Name Value Range Interpretation Code Description Data Whit rce(s) Supporting Document(s) Glucose [Mass/volume] in Capillary blood by Glucometer 97 mg/dL 70- 140 [facility] ID Date Data Source [id number] 02/19/2021 10:29:52 AM EDT [facility] Name Value Range Interpretation Code Description Data Whit rce(s) Supporting Document(s) History and Physical [facility] XQUGQq1fAgHIDwDn25/OXLacIQOev6SvDVhqJXa1KIkvKSZfQ9IqDQT9yI0dCUB0WQyEAbRwSlVxDjTd lbm [file] UZ7KUe3DYvR4HBX1zYYpPv8HDvE6EgWQTaMoWL5QQVv= ID Date Data Source [id number] 02/19/2021 08:02:27 AM EDT [facility] Name Value Range Interpretation Code Description Data Whit rce(s) Supporting Document(s) Glucose [Mass/volume] in Capillary blood by Glucometer 172 mg/dL 70- 140 [facility] ID Date Data Source [id number] 02/22/2021 10:11:00 AM EDT [facility] Surgical Pathology ReportName: CARLITOS SANTIZOMRN: [id number] Number: [id number] Date: 02/19/2021 00:00Received Date: 02/20/2021 09:52Physician(s): GRACIELA THOMPSON MD NIKOLAVSKY, DMITRIY, MDSpecimen(s) ReceivedA: Left testicleB: Right testicleClinical HistoryGender dysphoria.DiagnosisA,B) TESTICLES, LEFT AND RIGHT, EXCISION: BENIGN TESTICULAR PARENCHYMA. Electronically Signed By Usman Munson M.D., Attending Pathologist02/22/2021 10:11:04 Unless 'gross-only' is specified, the final diagnosis is based on amicroscopic examination of in store marketing representative sections of tissue.Gross Description The specimen [...] with no mass es orlesions grossly identified. Driver License Reviewing Officer sections are submitted in onecassette. Part [...] parenchyma with no masses or lesions grosslyidentified. Driver License Reviewing Officer sections are submitted in one cassette. HOH\\This report may include one or more immunohistochemical stain results thatuse analyte specific reagents. All positive and negative controls havebeen reviewed by the attending pathologist and are satisfactory. The testswere developed and their performance characteristics determined by [facility] Pathology department. They have not been cleared or approved by the USFood and Drug Administration. The FDA has determined that such clearanceor approval is not necessary. Name Value Range Interpretation Code Description Data [facility] rce(s) Supporting Document(s) ID Date Data Source [id number] 02/14/2021 12:15:00 PM EDT [facility]) Name Value Range Interpretation Code Description Data [facility] rce(s) Supporting Document(s) ID Date Data Source [id number] 02/14/2021 12:15:00 PM EDT [facility]) Name Value Range Interpretation Code Description Data [facility] rce(s) Supporting Document(s) ID Date Data Source [id number] 02/14/2021 12:15:00 PM EDT [facility]) Name Value Range Interpretation Code Description Data Whit rce(s) Supporting Document(s) ID Date Data Source [id number] 02/14/2021 12:15:00 PM EDT [facility] Name Value Range Interpretation Code Description Data Whit rce(s) Supporting Document(s) SARS-CoV-2 (COVID-19) RNA [Presence] in Respiratory specimen by DONAVAN with probe detection Not Detected [facility] This lab was ordered by [facility] and reported by [employer]. ID Date Data Source [id number] 02/04/2021 11:12:00 AM EDT [facility]) Name Value Range Interpretation Code Description Data Whit rce(s) Supporting Document(s) Hemoglobin A1c/Hemoglobin.total in Blood 8.3 % Hemoglobin a1C [facility]) estimated average glucose 192 mg/dL 60-110 Above high norm al Estimated Average Glucose [facility]) ID Date Data Source [id number] 02/04/2021 11:12:00 AM EDT [facility]) Name Value Range Interpretation Code Description Data Whit rce(s) Supporting Document(s) total 25(oh) vitamin D 11.2 NG/mL 30.0-100.0 Below low normal T otal 25(Oh) Vitamin D [facility]) ID Date Data Source [id number] 02/04/2021 11:12:00 AM EDT [facility]) Name Value Range Interpretation Code Description Data Whit rce(s) Supporting Document(s) thyroid stimulating hormone 2.670 uIU/mL 0.358-3.740 Thyroid Stimulating Hormone [facility]) ID Date Data Source [id number] 02/04/2021 11:12:00 AM EDT [facility]) Name Value Range Interpretation Code Description Data Whit rce(s) Supporting Document(s) triglycerides level 92 mg/dL <150 Triglycerides [place] man[place]it [place] ([facility]) HDL cholesterol 65 mg/dL >40 HDL Cholesterol ATHE NA ([facility]) non-HDL-C 62 mg/dL Non-hdl-c [place] ([facility]) Cholesterol in LDL [Mass/volume] in Serum or Plasma 44 mg/dL <1 00 LDL Cholesterol [place] ([facility]) cholesterol level 127 mg/dL <200 Cholesterol Level [place] ([facility]) cholesterol risk ratio <5 Cholesterol R isk Ratio [place] ([facility]) ID Date Data Source [id number] 02/04/2021 11:12:00 AM EDT [place] ([facility]) Name Value Range Interpretation Code Description Data Whit rce(s) Supporting Document(s) estimated average glucose 192 mg/dL 60-110 Above high norm al Estimated Average Glucose [place] ([facility]) Hemoglobin A1c/Hemoglobin.total in Blood 8.3 % Hemoglobin a1C [place] ([facility]) ID Date Data Source [id number] 02/04/2021 11:12:00 AM EDT [place] ([facility]) Name Value Range Interpretation Code Description Data Whit rce(s) Supporting Document(s) total 25(oh) vitamin D 11.2 NG/mL 30.0-100.0 Below low normal T otal 25(Oh) Vitamin D [place] ([facility]) ID Date Data Source [id number] 02/04/2021 11:12:00 AM EDT [place] ([facility]) Name Value Range Interpretation Code Description Data Whit rce(s) Supporting Document(s) thyroid stimulating hormone 2.670 uIU/mL 0.358-3.740 Thyroid Stimulating Hormone [place] ([facility]) ID Date Data Source [id number] 02/04/2021 11:12:00 [facility]T [facility] Name Value Range Interpretation Code Description Data Whit rce(s) Supporting Document(s) triglycerides level 92 mg/dL <150 Triglycerides Le manjit [place] ([facility]) HDL cholesterol 65 mg/dL >40 HDL Cholesterol [place]HE [place] ([facility]) Cholesterol in LDL [Mass/volume] in Serum or Plasma 44 mg/dL <1 00 LDL Cholesterol [place] ([facility]) cholesterol level 127 mg/dL <200 Cholesterol Level [place] ([facility]) cholesterol risk ratio <5 Cholesterol R isk Ratio [place] ([facility]) non-HDL-C 62 mg/dL Non-hdl-c [place] ([facility]) ID Date Data Source [id number] 02/04/2021 11:12:00 AM EDT [place] ([facility]) Name Value Range Interpretation Code Description Data Whit rce(s) Supporting Document(s) estimated average glucose 192 mg/dL 60-110 Above high norm al Estimated Average Glucose [place] ([facility]) Hemoglobin A1c/Hemoglobin.total in Blood 8.3 % Hemoglobin a1C [place] ([facility]) ID Date Data Source [id number] 02/04/2021 11:12:00 AM EDT [place] ([facility]) Name Value Range Interpretation Code Description Data Whit rce(s) Supporting Document(s) total 25(oh) vitamin D 11.2 NG/mL 30.0-100.0 Below low normal T otal 25(Oh) [facility] D [facility] ID Date Data Source [id number] 02/04/2021 11:12:00 AM EDT [facility] Name Value Range Interpretation Code Description Data Whit rce(s) Supporting Document(s) thyroid stimulating hormone 2.670 uIU/mL 0.358-3.740 Thyroid Stimulating Hormone [place] ([facility]) ID Date Data Source [id number] 02/04/2021 11:12:00 AM EDT [place] ([facility]) Name Value Range Interpretation Code Description Data Whit rce(s) Supporting Document(s) triglycerides level 92 mg/dL <150 Triglycerides Le manjit [place] ([facility]) HDL cholesterol 65 mg/dL >40 HDL Cholesterol ATHE NA ([facility]) cholesterol level 127 mg/dL <200 Cholesterol Level [place] ([facility]) Cholesterol in LDL [Mass/volume] in Serum or Plasma 44 mg/dL <1 00 LDL Cholesterol [place] ([facility]) non-HDL-C 62 mg/dL Non-hdl-c [place] ([facility]) cholesterol risk ratio <5 Cholesterol R isk Ratio [place] ([facility]) ID Date Data Source [id number] 02/04/2021 11:12:00 AM EDT [place] ([facility]) Name Value Range Interpretation Code Description Data Whit rce(s) Supporting Document(s) Hemoglobin A1c/Hemoglobin.total in Blood 8.3 % Hemoglobin a1C [place] ([facility]) estimated average glucose 192 mg/dL 60-110 Above high norm al Estimated Average Glucose [place] ([facility]) ID Date Data Source [id number] 02/04/2021 11:12:00 AM EDT [place] ([facility]) Name Value Range Interpretation Code Description Data Whit rce(s) Supporting Document(s) total 25(oh) vitamin D 11.2 NG/mL 30.0-100.0 Below low normal T otal 25(Oh) Vitamin D [place] ([facility]) ID Date Data Source [id number] 02/04/2021 11:12:00 AM [facility] Name Value Range Interpretation Code Description Data Whit rce(s) Supporting Document(s) thyroid stimulating hormone 2.670 uIU/mL 0.358-3.740 Thyroid Stimulating Hormone [place] ([facility]) ID Date Data Source [id number] 02/04/2021 11:12:00 AM EDT [place] ([facility]) Name Value Range Interpretation Code Description Data Whit rce(s) Supporting Document(s) cholesterol level 127 mg/dL <200 Cholesterol Level [place] ([facility]) triglycerides level 92 mg/dL <150 Triglycerides Le manjit [place] ([facility]) HDL cholesterol 65 mg/dL >40 HDL Cholesterol [place] ([facility]) Cholesterol in LDL [Mass/volume] in Serum or Plasma 44 mg/dL <1 00 LDL Cholesterol [place] ([facility]) non-HDL-C 62 mg/dL Non-hdl-c [facility] ([facility]) cholesterol risk ratio <5 Cholesterol R isk Ratio [place] ([facility]) ID Date Data Source [id number] 01/28/2021 03:18:15 PM EDT [facility] Name Value Range Interpretation Code Description Data Whit rce(s) Supporting Document(s) Progress Note [facility] [id number] [facility] [file] [id number]/width stripper+Fgx5ge [file] [id number]= ID Date Data Source [id number] 12/14/2020 11:56:00 AM EDT [facility] ([facility] ) Name Value Range Interpretation Code Description Data Whit rce(s) Supporting Document(s) Glucose [Mass/volume] in Serum or Plasma 159 [facility] ([facility]) Hemoglobin A1c/Hemoglobin.total in Blood 8.4 [facility] ([facility]) ID Date Data Source [id number] 12/12/2020 05:16:00 PM EDT [facility]) Name Value Range Interpretation Code Description Data Whit rce(s) Supporting Document(s) nt-pro BNP 25 pg/mL <125 Nt-pro BNP [place] ([facility]) ID Date Data Source [id number] 12/12/2020 05:16:00 PM EDT [facility]) Name Value Range Interpretation Code Description Data Whit rce(s) Supporting Document(s) glucose, fasting 181 mg/dL 70-100 Above high normal Glucose, Fas ting [place] ([facility]) blood urea nitrogen 12 mg/dL 7-18 Blood Urea Nitro gen [place] ([facility]) sodium level 137 mEq/L 136-145 Sodium Level [place] ([facility]) glomerular filtration rate > 60.0 >56 Glomerula r Filtration Rate [place] ([facility]) potassium serum 4.4 mEq/L 3.5-5.1 Potassium Serum [place] ([facility]) creatinine for GFR 0.78 mg/dL 0.70-1.30 Creatinine for GF R [place] ([facility]) carbon dioxide level 28 mEq/L 21-32 Carbon Dioxide Level [place] ([facility]) chloride level 102 mEq/L 98-107 Chloride Level [place] ([facility]) calcium level 9.0 mg/dL 8.5-10.1 Calcium Level [place] ( [facility]) anion gap 7 mEq/L 8-16 Below low normal Anion Gap [place] ( [facility]) alkaline phosphatase 84 U/L 45-117 Alkaline Phosph atase [place] ([facility]) bilirubin,total 0.3 mg/dL 0.2-1.0 Bilirubin,total [place] ([facility]) ALT/SGPT 31 U/L 12-78 ALT/SGPT [place] ([facility]) total protein 6.6 gm/dL 6.4-8.2 Total Protein [place] ( [facility]) AST/SGOT 15 U/L 7-37 AST/SGOT [place] ([facility]) albumin 3.7 gm/dL 3.2-5.2 Albumin [place] ([facility]) albumin/globulin ratio Albumin/globu trish Ratio [place] ([facility]) ID Date Data Source [id number] 12/12/2020 05:16:00 PM EDT [place] ([facility]) Name Value Range Interpretation Code Description Data Whit rce(s) Supporting Document(s) white blood count 6.3 10 4.0-10.0 White Blood Count [place] ([facility]) red blood count 4.57 10 4.30-6.10 Red Blood Count [place] ([facility]) hemoglobin 14.1 g/dL 13.5-17.5 Hemoglobin [place] ([facility]) mean corpuscular volume 93.4 fL 80.0-96.0 Mean Corpusc ular Volume [place] ([facility]) mean corpuscular HGB conc 33.0 g/dL 32.0-36.5 Mean Corpu scular HGB Conc [place] ([facility]) mean corpuscular hemoglobin 30.9 pg 27.0-33.0 Mean Cor puscular Hemoglobin [place] ([facility]) hematocrit 42.7 % 42.0-52.0 Hematocrit [place] ([facility]) neutrophils % 44.7 % 36.0-66.0 Neutrophils % [place] ( [facility]) platelet count, automated 231 10 150-450 Platelet C ount, Automated [place] ([facility]) red cell distribution width 13.3 % 11.5-14.5 Red Cell Distribution Width [place] ([facility]) eos % 8.7 % 0.0-3.0 Above high normal Eos % [place] ([facility]) baso % 2.1 % 0.0-1.0 Above high normal Baso % [place] ([facility]) mono % 9.7 % 2.0-8.0 Above high normal Yell % [place] ([facility]) lymph % 33.7 % 24.0-44.0 Lymph % [place] ([facility]) immature granulocyte % 1.1 % 0-3.0 Immature Gran ulocyte % [place] ([facility]) mono # 0.6 10 0.0-0.8 Yell # [place] ([facility]) neutrophils # 2.8 10 1.5-8.5 Neutrophils # [place] ( [facility]) nucleated red blood cell % 0.0 % 0-0 Nucleated Red Blood Cell % [place] ([facility]) lymph # 2.1 10 1.5-5.0 Lymph # [place] ([facility]) eos # 0.6 10 0.0-0.5 Above high normal Eos # [place] ([facility]) baso # 0.1 10 0.0-0.2 Baso # [place] ([facility]) ID Date Data Source [id number] 12/12/2020 05:16:00 PM EDT [place] ([facility]) Name Value Range Interpretation Code Description Data Whit rce(s) Supporting Document(s) nt-pro BNP 25 pg/mL <125 Nt-pro BNP [place] ([facility]) ID Date Data Source [id number] 12/12/2020 05:16:00 PM EDT [place] ([facility]) Name Value Range Interpretation Code Description Data Whit rce(s) Supporting Document(s) glucose, fasting 181 mg/dL 70-100 Above high normal Glucose, Fas ting [place] ([facility]) sodium level 137 mEq/L 136-145 Sodium Level [place] ([facility]) glomerular filtration rate > 60.0 >56 Glomerula r Filtration Rate [place] ([facility]) blood urea nitrogen 12 mg/dL 7-18 Blood Urea Nitro gen [place] ([facility]) creatinine for GFR 0.78 mg/dL 0.70-1.30 Creatinine for GF R [place] ([facility]) chloride level 102 mEq/L 98-107 Chloride Level [place] ([facility]) potassium serum 4.4 mEq/L 3.5-5.1 Potassium Serum [place] ([facility]) carbon dioxide level 28 mEq/L 21-32 Carbon Dioxide Level [place] ([facility]) AST/SGOT 15 U/L 7-37 AST/SGOT [place] ([facility]) ALT/SGPT 31 U/L 12-78 ALT/SGPT [place] ([facility]) alkaline phosphatase 84 U/L 45-117 Alkaline Phosph atase [place] ([facility]) anion gap 7 mEq/L 8-16 Below low normal Anion Gap [place] ( [facility]) calcium level 9.0 mg/dL 8.5-10.1 Calcium Level [place] ( [facility]) total protein 6.6 gm/dL 6.4-8.2 Total Protein [place] ( [facility]) albumin 3.7 gm/dL 3.2-5.2 Albumin [place] ([facility]) albumin/globulin ratio Albumin/globu trish Ratio [place] ([facility]) bilirubin,total 0.3 mg/dL 0.2-1.0 Bilirubin,total [place] ([facility]) ID Date Data Source [id number] 12/12/2020 05:16:00 PM EDT [place] ([facility]) Name Value Range Interpretation Code Description Data Whit rce(s) Supporting Document(s) white blood count 6.3 10 4.0-10.0 White Blood Count [place] ([facility]) hemoglobin 14.1 g/dL 13.5-17.5 Hemoglobin [place] ([facility]) red blood count 4.57 10 4.30-6.10 Red Blood Count [place] ([facility]) mean corpuscular volume 93.4 fL 80.0-96.0 Mean Corpusc ular Volume [place] ([facility]) mean corpuscular hemoglobin 30.9 pg 27.0-33.0 Mean Cor puscular Hemoglobin [place] ([facility]) mean corpuscular HGB conc 33.0 g/dL 32.0-36.5 Mean Corpu scular HGB Conc [place] ([facility]) hematocrit 42.7 % 42.0-52.0 Hematocrit [place] ([facility]) lymph % 33.7 % 24.0-44.0 Lymph % [place] ([facility]) red cell distribution width 13.3 % 11.5-14.5 Red Cell Distribution Width [place] ([facility]) platelet count, automated 231 10 150-450 Platelet C ount, Automated [place] ([facility]) neutrophils % 44.7 % 36.0-66.0 Neutrophils % [place] ( [facility]) eos % 8.7 % 0.0-3.0 Above high normal Eos % [place] ([facility]) mono % 9.7 % 2.0-8.0 Above high normal Yell % [place] ([facility]) baso % 2.1 % 0.0-1.0 Above high normal Baso % [place] ([facility]) immature granulocyte % 1.1 % 0-3.0 Immature Gran ulocyte % [place] ([facility]) nucleated red blood cell % 0.0 % 0-0 Nucleated Red Blood Cell % [place] ([facility]) lymph # 2.1 10 1.5-5.0 Lymph # [place] ([facility]) neutrophils # 2.8 10 1.5-8.5 Neutrophils # [place] ( [facility]) mono # 0.6 10 0.0-0.8 Yell # [place] ([facility]) baso # 0.1 10 0.0-0.2 Baso # [place] ([facility]) eos # 0.6 10 0.0-0.5 Above high normal Eos # [place] ([facility]) ID Date Data Source [id number] 12/12/2020 05:16:00 PM EDT [place] ([facility]) Name Value Range Interpretation Code Description Data Whit rce(s) Supporting Document(s) nt-pro BNP 25 pg/mL <125 Nt-pro BNP [place] ([facility]) ID Date Data Source [id number] 12/12/2020 05:16:00 PM EDT [place] ([facility]) Name Value Range Interpretation Code Description Data Whit rce(s) Supporting Document(s) blood urea nitrogen 12 mg/dL 7-18 Blood Urea Nitro gen [place] ([facility]) glucose, fasting 181 mg/dL 70-100 Above high normal Glucose, Fas ting [place] ([facility]) sodium level 137 mEq/L 136-145 Sodium Level [place] ([facility]) glomerular filtration rate > 60.0 >56 Glomerula r Filtration Rate [place] ([facility]) creatinine for GFR 0.78 mg/dL 0.70-1.30 Creatinine for GF R [place] ([facility]) potassium serum 4.4 mEq/L 3.5-5.1 Potassium Serum [place] ([facility]) calcium level 9.0 mg/dL 8.5-10.1 Calcium Level [place] ( [facility]) chloride level 102 mEq/L 98-107 Chloride Level [place] ([facility]) anion gap 7 mEq/L 8-16 Below low normal Anion Gap [place] ( [facility]) carbon dioxide level 28 mEq/L 21-32 Carbon Dioxide Level [place] ([facility]) alkaline phosphatase 84 U/L 45-117 Alkaline Phosph atase [place] ([facility]) ALT/SGPT 31 U/L 12-78 ALT/SGPT [place] ([facility]) total protein 6.6 gm/dL 6.4-8.2 Total Protein [place] ( [facility]) bilirubin,total 0.3 mg/dL 0.2-1.0 Bilirubin,total [place] ([facility]) AST/SGOT 15 U/L 7-37 AST/SGOT [place] ([facility]) albumin 3.7 gm/dL 3.2-5.2 Albumin [place] ([facility]) albumin/globulin ratio Albumin/globu trish Ratio [place] ([facility]) ID Date Data Source [id number] 12/12/2020 05:16:00 PM EDT [place] ([facility]) Name Value Range Interpretation Code Description Data Whit rce(s) Supporting Document(s) white blood count 6.3 10 4.0-10.0 White Blood Count [place] ([facility]) red blood count 4.57 10 4.30-6.10 Red Blood Count [place] ([facility]) hemoglobin 14.1 g/dL 13.5-17.5 Hemoglobin [place] ([facility]) mean corpuscular volume 93.4 fL 80.0-96.0 Mean Corpusc ular Volume [place] ([facility]) hematocrit 42.7 % 42.0-52.0 Hematocrit [place] ([facility]) platelet count, automated 231 10 150-450 Platelet C ount, Automated [place] ([facility]) red cell distribution width 13.3 % 11.5-14.5 Red Cell Distribution Width [place] ([facility]) mean corpuscular HGB conc 33.0 g/dL 32.0-36.5 Mean Corpu scular HGB Conc [place] ([facility]) mean corpuscular hemoglobin 30.9 pg 27.0-33.0 Mean Cor puscular Hemoglobin [place] ([facility]) lymph % 33.7 % 24.0-44.0 Lymph % [place] ([facility]) neutrophils % 44.7 % 36.0-66.0 Neutrophils % [place] ( [facility]) mono % 9.7 % 2.0-8.0 Above high normal Yell % [place] ([facility]) baso % 2.1 % 0.0-1.0 Above high normal Baso % [place] ([facility]) nucleated red blood cell % 0.0 % 0-0 Nucleated Red Blood Cell % [place] ([facility]) eos % 8.7 % 0.0-3.0 Above high normal Eos % [place] ([facility]) immature granulocyte % 1.1 % 0-3.0 Immature Gran ulocyte % [place] ([facility]) lymph # 2.1 10 1.5-5.0 Lymph # [place] ([facility]) eos # 0.6 10 0.0-0.5 Above high normal Eos # [place] ([facility]) neutrophils # 2.8 10 1.5-8.5 Neutrophils # [place] ( [facility]) mono # 0.6 10 0.0-0.8 Yell # [place] ([facility]) baso # 0.1 10 0.0-0.2 Baso # [place] ([facility]) ID Date Data Source [id number] 12/12/2020 05:16:00 PM EDT [place] ([facility]) Name Value Range Interpretation Code Description Data Whit rce(s) Supporting Document(s) nt-pro BNP 25 pg/mL <125 Nt-pro BNP [place] ([facility]) ID Date Data Source [id number] 12/12/2020 05:16:00 PM EDT [place] ([facility]) Name Value Range Interpretation Code Description Data Whit rce(s) Supporting Document(s) creatinine for GFR 0.78 mg/dL 0.70-1.30 Creatinine for GF R [place] ([facility]) glomerular filtration rate > 60.0 >56 Glomerula r Filtration Rate [place] ([facility]) glucose, fasting 181 mg/dL 70-100 Above high normal Glucose, Fas ting [place] ([facility]) blood urea nitrogen 12 mg/dL 7-18 Blood Urea Nitro gen [place] ([facility]) carbon dioxide level 28 mEq/L 21-32 Carbon Dioxide Level [place] ([facility]) chloride level 102 mEq/L 98-107 Chloride Level [place] ([facility]) potassium serum 4.4 mEq/L 3.5-5.1 Potassium Serum [place] ([facility]) sodium level 137 mEq/L 136-145 Sodium Level [place] ([facility]) AST/SGOT 15 U/L 7-37 AST/SGOT [place] ([facility]) anion gap 7 mEq/L 8-16 Below low normal Anion Gap [place] ( [facility]) ALT/SGPT 31 U/L 12-78 ALT/SGPT [place] ([facility]) alkaline phosphatase 84 U/L 45-117 Alkaline Phosph atase [place] ([facility]) calcium level 9.0 mg/dL 8.5-10.1 Calcium Level [place] ( [facility]) albumin/globulin ratio Albumin/globu trish Ratio [place] ([facility]) bilirubin,total 0.3 mg/dL 0.2-1.0 Bilirubin,total [place] ([facility]) albumin 3.7 gm/dL 3.2-5.2 Albumin [place] ([facility]) total protein 6.6 gm/dL 6.4-8.2 Total Protein [place] ( [facility]) ID Date Data Source [id number] 12/12/2020 05:16:00 PM EDT [place] ([facility]) Name Value Range Interpretation Code Description Data Whit rce(s) Supporting Document(s) white blood count 6.3 10 4.0-10.0 White Blood Count [place] ([facility]) hemoglobin 14.1 g/dL 13.5-17.5 Hemoglobin [place] ([facility]) red blood count 4.57 10 4.30-6.10 Red Blood Count [place] ([facility]) mean corpuscular volume 93.4 fL 80.0-96.0 Mean Corpusc ular Volume [place] ([facility]) mean corpuscular hemoglobin 30.9 pg 27.0-33.0 Mean Cor puscular Hemoglobin [place] ([facility]) hematocrit 42.7 % 42.0-52.0 Hematocrit [place] ([facility]) mean corpuscular HGB conc 33.0 g/dL 32.0-36.5 Mean Corpu scular HGB Conc [place] ([facility]) neutrophils % 44.7 % 36.0-66.0 Neutrophils % [place] ( [facility]) platelet count, automated 231 10 150-450 Platelet C ount, Automated [place] ([facility]) red cell distribution width 13.3 % 11.5-14.5 Red Cell Distribution Width [place] ([facility]) eos % 8.7 % 0.0-3.0 Above high normal Eos % [place] ([facility]) baso % 2.1 % 0.0-1.0 Above high normal Baso % [place] ([facility]) lymph % 33.7 % 24.0-44.0 Lymph % [place] ([facility]) mono % 9.7 % 2.0-8.0 Above high normal Yell % [place] ([facility]) nucleated red blood cell % 0.0 % 0-0 Nucleated Red Blood Cell % [place] ([facility]) immature granulocyte % 1.1 % 0-3.0 Immature Gran ulocyte % [place] ([facility]) lymph # 2.1 10 1.5-5.0 Lymph # [place] ([facility]) neutrophils # 2.8 10 1.5-8.5 Neutrophils # [place] ( [facility]) baso # 0.1 10 0.0-0.2 Baso # [place] ([facility]) mono # 0.6 10 0.0-0.8 Yell # [place] ([facility]) eos # 0.6 10 0.0-0.5 Above high normal Eos # [place] ([facility]) ID Date Data Source [id number] 12/12/2020 05:16:00 PM EDT [facility]) Name Value Range Interpretation Code Description Data Whit rce(s) Supporting Document(s) nt-pro BNP 25 pg/mL <125 Nt-pro BNP [place] ([facility]) ID Date Data Source [id number] 12/12/2020 05:16:00 PM EDT [facility]) Name Value Range Interpretation Code Description Data Whit rce(s) Supporting Document(s) glucose, fasting 181 mg/dL 70-100 Above high normal Glucose, Fas ting [place] ([facility]) glomerular filtration rate > 60.0 >56 Glomerula r Filtration Rate [place] ([facility]) sodium level 137 mEq/L 136-145 Sodium Level [place] ([facility]) creatinine for GFR 0.78 mg/dL 0.70-1.30 Creatinine for GF R [place] ([facility]) blood urea nitrogen 12 mg/dL 7-18 Blood Urea Nitro gen [place] ([facility]) potassium serum 4.4 mEq/L 3.5-5.1 Potassium Serum [place] ([facility]) anion gap 7 mEq/L 8-16 Below low normal Anion Gap [place] ( [facility]) chloride level 102 mEq/L 98-107 Chloride Level [place] ([facility]) carbon dioxide level 28 mEq/L 21-32 Carbon Dioxide Level [place] ([facility]) calcium level 9.0 mg/dL 8.5-10.1 Calcium Level [place] ( [facility]) ALT/SGPT 31 U/L 12-78 ALT/SGPT [place] ([facility]) AST/SGOT 15 U/L 7-37 AST/SGOT [place] ([facility]) alkaline phosphatase 84 U/L 45-117 Alkaline Phosph atase [place] ([facility]) total protein 6.6 gm/dL 6.4-8.2 Total Protein [place] ( [facility]) albumin 3.7 gm/dL 3.2-5.2 Albumin [place] ([facility]) albumin/globulin ratio Albumin/globu trish Ratio [place] ([facility]) bilirubin,total 0.3 mg/dL 0.2-1.0 Bilirubin,total [place] ([facility]) ID Date Data Source [id number] 12/12/2020 05:16:00 PM EDT [place] ([facility]) Name Value Range Interpretation Code Description Data Whit rce(s) Supporting Document(s) white blood count 6.3 10 4.0-10.0 White Blood Count [place] ([facility]) red blood count 4.57 10 4.30-6.10 Red Blood Count [place] ([facility]) hematocrit 42.7 % 42.0-52.0 Hematocrit [place] ([facility]) hemoglobin 14.1 g/dL 13.5-17.5 Hemoglobin [place] ([facility]) mean corpuscular volume 93.4 fL 80.0-96.0 Mean Corpusc ular Volume [place] ([facility]) red cell distribution width 13.3 % 11.5-14.5 Red Cell Distribution Width [place] ([facility]) mean corpuscular HGB conc 33.0 g/dL 32.0-36.5 Mean Corpu scular HGB Conc [place] ([facility]) mean corpuscular hemoglobin 30.9 pg 27.0-33.0 Mean Cor puscular Hemoglobin [place] ([facility]) lymph % 33.7 % 24.0-44.0 Lymph % [place] ([facility]) neutrophils % 44.7 % 36.0-66.0 Neutrophils % [place] ( [facility]) mono % 9.7 % 2.0-8.0 Above high normal Yell % [place] ([facility]) platelet count, automated 231 10 150-450 Platelet C ount, Automated [place] ([facility]) nucleated red blood cell % 0.0 % 0-0 Nucleated Red Blood Cell % [place] ([facility]) eos % 8.7 % 0.0-3.0 Above high normal Eos % [place] ([facility]) immature granulocyte % 1.1 % 0-3.0 Immature Gran ulocyte % [place] ([facility]) baso % 2.1 % 0.0-1.0 Above high normal Baso % [place] ([facility]) mono # 0.6 10 0.0-0.8 Yell # [place] ([facility]) neutrophils # 2.8 10 1.5-8.5 Neutrophils # [place] ( [facility]) lymph # 2.1 10 1.5-5.0 Lymph # [place] ([facility]) eos # 0.6 10 0.0-0.5 Above high normal Eos # [place] ([facility]) baso # 0.1 10 0.0-0.2 Baso # [place] ([facility]) ID Date Data Source [id number] 12/12/2020 05:16:00 PM EDT [place] ([facility]) Name Value Range Interpretation Code Description Data Whit rce(s) Supporting Document(s) nt-pro BNP 25 pg/mL <125 Nt-pro BNP [place] ([facility]) ID Date Data Source [id number] 12/12/2020 05:16:00 PM EDT [place] ([facility]) Name Value Range Interpretation Code Description Data Whit rce(s) Supporting Document(s) glucose, fasting 181 mg/dL 70-100 Above high normal Glucose, Fas ting [place] ([facility]) glomerular filtration rate > 60.0 >56 Glomerula r Filtration Rate [place] ([facility]) blood urea nitrogen 12 mg/dL 7-18 Blood Urea Nitro gen [place] ([facility]) creatinine for GFR 0.78 mg/dL 0.70-1.30 Creatinine for GF R [place] ([facility]) anion gap 7 mEq/L 8-16 Below low normal Anion Gap JOVON ( [facility]) potassium serum 4.4 mEq/L 3.5-5.1 Potassium Serum ATHE NA ([facility]) chloride level 102 mEq/L 98-107 Chloride Level JOVON ([facility]) carbon dioxide level 28 mEq/L 21-32 Carbon Dioxide Level JOVON ([facility]) sodium level 137 mEq/L 136-145 Sodium Level JOVON ([facility]) AST/SGOT 15 U/L 7-37 AST/SGOT JOVON ([facility]) ALT/SGPT 31 U/L 12-78 ALT/SGPT JOVON ([facility]) calcium level 9.0 mg/dL 8.5-10.1 Calcium Level JOVON ( [facility]) alkaline phosphatase 84 U/L 45-117 Alkaline Phosph atase JOVON ([facility]) albumin/globulin ratio Albumin/globu trish Ratio JOVON ([facility]) total protein 6.6 gm/dL 6.4-8.2 Total Protein JOVON ( [facility]) bilirubin,total 0.3 mg/dL 0.2-1.0 Bilirubin,total ATHE ([facility]) albumin 3.7 gm/dL 3.2-5.2 Albumin JOVON ([facility]) ID Date Data Source [id number] 12/12/2020 05:16:00 PM EDT JOVON ([facility]) Name Value Range Interpretation Code Description Data Whit rce(s) Supporting Document(s) white blood count 6.3 10 4.0-10.0 White Blood Count JOVON ([facility]) red blood count 4.57 10 4.30-6.10 Red Blood Count ATHE NA ([facility]) hemoglobin 14.1 g/dL 13.5-17.5 Hemoglobin JOVON ([facility]) hematocrit 42.7 % 42.0-52.0 Hematocrit JOVON ([facility]) mean corpuscular hemoglobin 30.9 pg 27.0-33.0 Mean Cor puscular Hemoglobin JOVON ([facility]) mean corpuscular volume 93.4 fL 80.0-96.0 Mean Corpusc ular Volume JOVON ([facility]) mean corpuscular HGB conc 33.0 g/dL 32.0-36.5 Mean Corpu scular HGB Conc JOVON ([facility]) red cell distribution width 13.3 % 11.5-14.5 Red Cell Distribution Width JOVON ([facility]) platelet count, automated 231 10 150-450 Platelet C ount, Automated JOVON ([facility]) lymph % 33.7 % 24.0-44.0 Lymph % JOVON ([facility]) eos % 8.7 % 0.0-3.0 Above high normal Eos % [place] ([facility]) neutrophils % 44.7 % 36.0-66.0 Neutrophils % [place] ( [facility]) mono % 9.7 % 2.0-8.0 Above high normal Yell % JOVON ([facility]) neutrophils # 2.8 10 1.5-8.5 Neutrophils # [place] ( [facility]) nucleated red blood cell % 0.0 % 0-0 Nucleated Red Blood Cell % JOVON ([facility]) baso % 2.1 % 0.0-1.0 Above high normal Baso % [place] ([facility]) immature granulocyte % 1.1 % 0-3.0 Immature Gran ulocyte % JOVON ([facility]) mono # 0.6 10 0.0-0.8 Yell # JOVON ([facility]) lymph # 2.1 10 1.5-5.0 Lymph # JOVON ([facility]) eos # 0.6 10 0.0-0.5 Above high normal Eos # JOVON ([facility]) baso # 0.1 10 0.0-0.2 Baso # JOVON ([facility]) ID Date Data Source [id number] 11/05/2020 10:08:00 AM EST MEDENT ([facility]) Name Value Range Interpretation Code Description Data Whit rce(s) Supporting Document(s) Surgical pathology study [facility] FINAL DIAGNOSIS Biopsy below Z-line: Intestinal metaplasia, [...] MD 11/06/2020 1226 ID Date Data Source [id number] 10/31/2020 12:00:00 PM EST [facility] Name Value Range Interpretation Code Description Data Whit rce(s) Supporting Document(s) SARS coronavirus 2 RNA Not Detected [facility] This lab was ordered by [facility] and reported by [facility]. ID Date Data Source [id number] 10/11/2020 12:00:00 AM EST [facility] Name Value Range Interpretation Code Description Data Whit rce(s) Supporting Document(s) SARS coronavirus 2 Ag Negative [facility] This lab was ordered by [facility] and reported by [facility]. ID Date Data Source [id number] 09/24/2020 02:54:00 PM EST MEDENT ([facility] ) Name Value Range Interpretation Code Description Data Whit rce(s) Supporting Document(s) Testosterone [Mass/volume] in Serum or Plasma 15 ng/dL [id number] MEDENT ([facility]) NORMAL RANGES ARE FOR ADULT FEMALES (OVE R 15 YRS) AND MALES (OVER 19 YRS). FOR PEDIATRIC RANGES PLE ASE CONSULT LITERATURE. Follitropin [Units/volume] in Serum or Plasma 0.8 mIU/mL 1.4-18.1 MEDENT ([facility]) Lutropin [Moles/volume] in Serum or Plasma 0.1 mIU/mL 1.5-9.3 [facility] ([facility]) ID Date Data Source [id number] 09/24/2020 02:54:00 PM EST MEDENT ([facility]) Name Value Range Interpretation Code Description Data Whit rce(s) Supporting Document(s) Glucose, Fasting 246 mg/dL 70-100 [facility] ([facility]) Blood Urea Nitrogen 17 mg/dL 7-18 MED[facility] ([facility]) Creatinine For GFR 0.96 mg/dL 0.70-1.30 MED[facility] ([facility]) Glomerular Filtration Rate Laboratory test result MEDENT ([facility]) <content>Units are mL/min/1.73 m2</content>
<content></content>
<content>Chronic Kidney Disease Staging per NKF:</content>
<content></content>
<content>Stage I & II GFR >=60 Normal to Mildly Decreased</content>
<content>Stage III GFR 30- 59 Moderately Decreased</content>
<content>Stage IV GFR 15-29 Severely Decreased</content>
<content>Stage V GFR <15 Very Little GFR Left</content>
<content>ESRD GFR <15 on [employer]</content>
<content></content> Sodium Level 137 meq/L 136-145 MED[facility] ([facility]) Chloride Level 104 meq/L 98-107 [facility] ([facility]) Potassium Serum 4.3 meq/L 3.5-5.1 MED[facility] ([facility]) Carbon Dioxide Level 28 meq/L 21-32 [facility] ([facility]) Anion Gap 5 meq/L 8-16 [facility] ([facility]) Calcium Level 8.6 mg/dL 8.5-10.1 [facility] ([facility]) ID Date Data Source [id number] 09/24/2020 02:54:00 PM EST MEDENT ([facility]) Name Value Range Interpretation Code Description Data Whit rce(s) Supporting Document(s) Laboratory test finding (navigational concept) 235 pg/mL 15-65 MED[facility] ([facility]) Estradiol 83.5 pg/mL 7.6-42.6 MED[facility] ([facility]) Salo ECLIA methodology Performed at: - [facility] [address] [id number] Nuclear Medicine Officer: Marlys Jin MD, Phone: [phone] Performed at: [facility] [address] [id number] Nuclear Medicine Officer: Gladis Paul MD, Phone: [phone] ID Date Data Source [id number] 09/24/2020 02:54:00 PM EST MEDENT ([facility]) Name Value Range Interpretation Code Description Data Whit rce(s) Supporting Document(s) Thyrotropin [Units/volume] in Serum or Plasma 1.420 uIU/ML 0.358-3.74 0 MEDENT ([facility]) Thyroxine (T4) free [Mass/volume] in Serum or Plasma 1.26 ng/dL 0.76- 1.46 [facility] ([facility]) ID Date Data Source [id number] 09/20/2020 02:59:00 PM EST MEDENT ([facility]) Name Value Range Interpretation Code Description Data Whit rce(s) Supporting Document(s) Hemoglobin A1c/Hemoglobin.total in Blood 8.3 MED[facility] ([facility]) Glucose [Mass/volume] in Serum or Plasma 168 MEDENT ([facility]) Procedure Social History Code Duration Value Status Description Data Source(s ) Smoking 07/22/2021 12:00:00 AM EDT Patient is a former smoker completed Patient is a former smoker MEDENT ([facility] ) Smoking 05/29/2021 12:00:00 AM EDT Patient is a former smoker completed Patient is a former smoker MED[facility] ([facility], ) Smoking 04/15/2021 12:00:00 AM EDT Never smoker completed Never s moker [facility] ([facility]) Alcohol intake 03/06/2021 12:00:00 AM EDT Current non-d lauren of alcohol (finding) completed Current non-drinker of alcohol (finding) [facility] Tobacco use and exposure 03/06/2021 12:00:00 AM EDT Never used co mpleted Never used [facility] Cigarette pack-years 03/06/2021 12:00:00 AM EDT UNK completed [facility] Cigarettes smoked current (pack per day) - Reported 03/06/20 12:00:00 AM EDT UNK completed [facility] Smoking 03/06/2021 12:00:00 AM EDT Former smoker completed Former smoker [facility] Alcohol intake 02/19/2021 12:00:00 AM EDT Current non-d lauren of alcohol (finding) completed Current non-drinker of alcohol (finding) [facility] Alcohol intake 01/28/2021 12:00:00 AM EDT Current non-d lauren of alcohol (finding) completed Current non-drinker of alcohol (finding) [facility] Smoking 10/11/2020 12:00:00 AM EST Patient is a former smoker completed Patient is a former smoker [facility] ([facility]) Alcohol intake 10/10/2020 12:00:00 AM EST Current non-d lauren of alcohol (finding) completed Current non-drinker of alcohol (finding) [facility] Vital Signs ID Date Data Source UNK Name Value Range Interpretation Code Description Data Source(s) Oxygen saturation in Arterial blood by Pulse oximetry 97 % 97 % [facility] Body mass index (BMI) [Ratio] 29.4 kg/m2 29.4 k g/m2 [facility] Body weight 205.25 [lb_av] 205.25 [lb_av] MEDEN T ([facility]) Systolic blood pressure 118 mm[Hg] 118 mm[Hg] M EDENT ([facility]) Diastolic blood pressure 64 mm[Hg] 64 mm[Hg] MEDENT ([facility]) Heart rate 91 /min 91 /min [facility] Body height 70 [in_i] 70 [in_i] MEDENT ([facility]) 5'10" Diastolic blood pressure 69 mm[Hg] 69 mm[Hg] JOVON ([facility]) Body height 72 [in_i] 72 [in_i] JOVON ([facility]) Body mass index (BMI) [Ratio] 30 kg/m2 30 kg/ m2 JOVON ([facility]) Systolic blood pressure 109 mm[Hg] 109 mm[Hg] A THENA ([facility]) Body weight 3538 [oz_av] 3538 [oz_av] JOVON ([facility]) Diastolic blood pressure 69 mm[Hg] 69 mm[Hg] JOVON ([facility]) Body height 72 [in_i] 72 [in_i] JOVON ([facility]) Body mass index (BMI) [Ratio] 30 kg/m2 30 kg/ m2 JOVON ([facility]) Systolic blood pressure 109 mm[Hg] 109 mm[Hg] A THENA ([facility]) Body weight 3538 [oz_av] 3538 [oz_av] JOVON ([facility]) Systolic blood pressure 110 mm[Hg] 110 mm[Hg] M TIAGO ([facility], ) Diastolic blood pressure 60 mm[Hg] 60 mm[Hg] [facility] Heart rate 65 /min 65 /min [facility] ([facility], ) Oxygen saturation in Arterial blood by Pulse oximetry 97 % 97 % [facility] ([facility], ) Body height 71 [in_i] 71 [in_i] [facility] ([facility], ) 5'11" Body weight 223.00 [lb_av] 223.00 [lb_av] [facility] ([facility] ) Body mass index (BMI) [Ratio] 31.1 kg/m2 31.1 k g/m2 [facility] ([facility], ) Pine body weight 172 [lb_av] 172 [lb_av] MEDEN T ([facility], ) Body weight 101.153 kg 101.153 kg [facility] ([facility], ) Body surface area Derived from formula 2.21 m2 2.21 m2 [facility] ([facility], ) Body weight 220.00 [lb_av] 220.00 [lb_av] MEDEN T ([facility], ) Systolic blood pressure 100 mm[Hg] 100 mm[Hg] M TIAGO ([facility], ) Diastolic blood pressure 70 mm[Hg] 70 mm[Hg] MEDENT ([facility]) Heart rate 70 /min 70 /min [facility] ([facility]) Oxygen saturation in Arterial blood by Pulse oximetry 95 % 95 % [facility] ([facility]) Room Air Body weight 99.792 kg 99.792 kg [facility] ([facility]) Heart rate 79 /min 79 /min [facility] ([facility]) Oxygen saturation in Arterial blood by Pulse oximetry 97 % 97 % [facility] ([facility]) Room Air Body weight 100.246 kg 100.246 kg [facility] ([facility]) Body weight 221.00 [lb_av] 221.00 [lb_av] MEDEN T ([facility]) Systolic blood pressure 108 mm[Hg] 108 mm[facility]Hg] [facility] Diastolic blood pressure 70 mm[Hg] 70 mm[Hg] [facility] Heart rate 69 /min 69 /min [facility]) Systolic blood pressure 115 mm[Hg] 115 mm[Hg] [facility] Body mass index (BMI) [Ratio] 31.6 kg/m2 31.6 k g/m2 [facility] Body temperature 97.7 [degF] 97.7 [degF] [facility] Body height 70 [in_i] 70 [in_i] MEDENT ([facility]) 5'10" Body weight 220.00 [lb_av] 220.00 [lb_av] MEDEN T ([facility]) Diastolic blood pressure 75 mm[Hg] 75 mm[Hg] [facility] Oxygen saturation in Arterial blood by Pulse oximetry 92 % 92 % [facility] Diastolic blood pressure 78 mm[Hg] 78 mm[Hg] [place] ([facility]) Body height 72 [in_i] 72 [in_i] JOVON ([facility]) Body mass index (BMI) [Ratio] 30.1 kg/m2 30.1 k g/m2 [place] ([facility]) Systolic blood pressure 128 mm[Hg] 128 mm[Hg] A THENA ([facility]) Body weight 3556 [oz_av] 3556 [oz_av] JOVON ([facility]) Diastolic blood pressure 78 mm[Hg] 78 mm[Hg] JOVON ([facility]) Body height 72 [in_i] 72 [in_i] [facility] ([facility]) Body mass index (BMI) [Ratio] 30.1 kg/m2 30.1 k g/m2 JOV[facility] ([facility]) Systolic blood pressure 128 mm[Hg] 128 mm[Hg] A THENA ([facility]) Body weight 3556 [oz_av] 3556 [oz_av] [facility]OV[facility] ([facility]) Body height 72 [in_i] 72 [in_i] JOVON ([facility]) Body mass index (BMI) [Ratio] 30.1 kg/m2 30.1 k g/m2 JOVON ([facility]) Systolic blood pressure 128 mm[Hg] 128 mm[Hg] A THENA ([facility]) Body weight 3556 [oz_av] 3556 [oz_av] [facility]OV[facility] ([facility]) Diastolic blood pressure 78 mm[Hg] 78 mm[Hg] JOVON ([facility]) Diastolic blood pressure 66 mm[Hg] 66 mm[Hg] JOV[facility] ([facility]) Body height 72 [in_i] 72 [in_i] [place] ([facility]) Body mass index (BMI) [Ratio] 30.4 kg/m2 30.4 k g/m2 JOV[facility] ([facility]) Systolic blood pressure 101 mm[Hg] 101 mm[Hg] A THENA ([facility]) Body weight 3590.4 [oz_av] 3590.4 [oz_av] ATHEN A ([facility]) Diastolic blood pressure 66 mm[Hg] 66 mm[Hg] JOVON ([facility]) Body height 72 [in_i] 72 [in_i] [place] ([facility]) Body mass index (BMI) [Ratio] 30.4 kg/m2 30.4 k g/m2 JOV[facility] ([facility]) Systolic blood pressure 101 mm[Hg] 101 mm[Hg] [facility] Body weight 3590.4 [oz_av] 3590.4 [oz_av] ATHEN A ([facility]) Diastolic blood pressure 66 mm[Hg] 66 mm[Hg] JOVON ([facility]) Body height 72 [in_i] 72 [in_i] JOVON ([facility]) Body mass index (BMI) [Ratio] 30.4 kg/m2 30.4 k g/m2 JOVON ([facility]) Systolic blood pressure 101 mm[Hg] 101 mm[Hg] [facility] Body weight 3590.4 [oz_av] 3590.4 [oz_av] ATHEN A ([facility]) Diastolic blood pressure 66 mm[Hg] 66 mm[Hg] JOVON ([facility]) Body height 72 [in_i] 72 [in_i] JOVON ([facility]) Body mass index (BMI) [Ratio] 30.4 kg/m2 30.4 k g/m2 JOVON ([facility]) Systolic blood pressure 101 mm[Hg] 101 mm[Hg] A THENA ([facility]) Body weight 3590.4 [oz_av] 3590.4 [oz_av] ATHEN A ([facility]) Diastolic blood pressure 72 mm[Hg] 72 mm[Hg] JOVON ([facility]) Systolic blood pressure 112 mm[Hg] 112 mm[Hg] A THENA ([facility]) Body height 72 [in_i] 72 [in_i] JOVON ([facility]) Body weight 3636 [oz_av] 3636 [oz_av] JOVON ([facility]) Body mass index (BMI) [Ratio] 30.8 kg/m2 30.8 k g/m2 JOVON ([facility]) Body weight 3636 [oz_av] 3636 [oz_av] JOVON ([facility]) Diastolic blood pressure 72 mm[Hg] 72 mm[Hg] JOVON ([facility]) Body height 72 [in_i] 72 [in_i] JOVON ([facility]) Body mass index (BMI) [Ratio] 30.8 kg/m2 30.8 k g/m2 JOVON ([facility]) Systolic blood pressure 112 mm[Hg] 112 mm[Hg] A [facility] ([facility]) Diastolic blood pressure 72 mm[Hg] 72 mm[Hg] JOVON ([facility]) Body height 72 [in_i] 72 [in_i] JOVON ([facility]) Body mass index (BMI) [Ratio] 30.8 kg/m2 30.8 k g/m2 JOVON ([facility]) Systolic blood pressure 112 mm[Hg] 112 mm[Hg] [facility] Body weight 3636 [oz_av] 3636 [oz_av] JOVON ([facility]) Diastolic blood pressure 72 mm[Hg] 72 mm[Hg] JOVON ([facility]) Body height 72 [in_i] 72 [in_i] JOVON ([facility]) Body mass index (BMI) [Ratio] 30.8 kg/m2 30.8 k g/m2 JOVON ([facility]) Systolic blood pressure 112 mm[Hg] 112 mm[Hg] [facility] Body weight 3636 [oz_av] 3636 [oz_av] JOVON ([facility]) Diastolic blood pressure 72 mm[Hg] 72 mm[Hg] JOVON ([facility]) Body height 72 [in_i] 72 [in_i] JOVON ([facility]) Body mass index (BMI) [Ratio] 30.8 kg/m2 30.8 k g/m2 JOVON ([facility]) Systolic blood pressure 112 mm[Hg] 112 mm[Hg] A THENA ([facility]) Body weight 3636 [oz_av] 3636 [oz_av] JOVON ([facility]) Diastolic blood pressure 80 mm[Hg] 80 mm[Hg] JOVON ([facility]) Systolic blood pressure 132 mm[Hg] 132 mm[Hg] [facility] Body weight 3606.4 [oz_av] 3606.4 [oz_av] ATHEN A ([facility]) Body height 72 [in_i] 72 [in_i] JOVON ([facility]) Body mass index (BMI) [Ratio] 30.6 kg/m2 30.6 k g/m2 JOVON ([facility]) Diastolic blood pressure 80 mm[Hg] 80 mm[Hg] JOVON ([facility]) Body height 72 [in_i] 72 [in_i] JOVON ([facility]) Body mass index (BMI) [Ratio] 30.6 kg/m2 30.6 k g/m2 JOVON ([facility]) Systolic blood pressure 132 mm[Hg] 132 mm[Hg] A [facility] ([facility]) Body weight 3606.4 [oz_av] 3606.4 [oz_av] ATHEN A ([facility]) Diastolic blood pressure 80 mm[Hg] 80 mm[Hg] JOVON ([facility]) Body height 72 [in_i] 72 [in_i] JOVON ([facility]) Body mass index (BMI) [Ratio] 30.6 kg/m2 30.6 k g/m2 JOVON ([facility]) Systolic blood pressure 132 mm[Hg] 132 mm[Hg] A DEVENA ([facility]) Body weight 3606.4 [oz_av] 3606.4 [oz_av] ATHEN A ([facility]) Diastolic blood pressure 80 mm[Hg] 80 mm[Hg] JOVON ([facility]) Body height 72 [in_i] 72 [in_i] JOVON ([facility]) Body mass index (BMI) [Ratio] 30.6 kg/m2 30.6 k g/m2 JOVON ([facility]) Systolic blood pressure 132 mm[Hg] 132 mm[Hg] A DEVENA ([facility]) Body weight 3606.4 [oz_av] 3606.4 [oz_av] ATHEN A ([facility]) Diastolic blood pressure 80 mm[Hg] 80 mm[Hg] JOVON ([facility]) Body height 72 [in_i] 72 [in_i] JOVON ([facility]) Body mass index (BMI) [Ratio] 30.6 kg/m2 30.6 k g/m2 JOVON ([facility]) Systolic blood pressure 132 mm[Hg] 132 mm[Hg] A THENA ([facility]) Body weight 3606.4 [oz_av] 3606.4 [oz_av] ATHEN A ([facility]) Diastolic blood pressure 80 mm[Hg] 80 mm[Hg] JOVON ([facility]) Body height 72 [in_i] 72 [in_i] JOVON ([facility]) Body mass index (BMI) [Ratio] 30.6 kg/m2 30.6 k g/m2 JOVON ([facility]) Systolic blood pressure 132 mm[Hg] 132 mm[Hg] A THENA ([facility]) Body weight 3606.4 [oz_av] 3606.4 [oz_av] ATHEN A ([facility]) Oxygen saturation in Arterial blood by Pulse oximetry 93 % 93 % [facility] ([facility] ) Body mass index (BMI) [Ratio] 31.9 kg/m2 31.9 k g/m2 MEDENT ([facility] ) Heart rate 72 /min 72 /min MED[facility] ([facility] ) Body height 70 [in_i] 70 [in_i] MEDENT ([facility] ) 5'10" Body weight 222.25 [lb_av] 222.25 [lb_av] MEDEN T ([facility] ) Systolic blood pressure 112 mm[Hg] 112 mm[Hg] M EDENT ([facility] ) Diastolic blood pressure 68 mm[Hg] 68 mm[Hg] MEDENT ([facility] ) Body temperature 97.3 [degF] 97.3 [degF] MEDENT ([facility] ) Body weight 3593.6 [oz_av] 3593.6 [oz_av] ATHEN A ([facility]) Diastolic blood pressure 68 mm[Hg] 68 mm[Hg] JOVON ([facility]) Body height 72 [in_i] 72 [in_i] JOVON ([facility]) Body mass index (BMI) [Ratio] 30.5 kg/m2 30.5 k g/m2 JOVON ([facility]) Systolic blood pressure 100 mm[Hg] 100 mm[Hg] [facility] Diastolic blood pressure 68 mm[Hg] 68 mm[Hg] JOVON ([facility]) Body height 72 [in_i] 72 [in_i] JOVON ([facility]) Body mass index (BMI) [Ratio] 30.5 kg/m2 30.5 k g/m2 JOVON ([facility]) Systolic blood pressure 100 mm[Hg] 100 mm[Hg] A THENA ([facility]) Body weight 3593.6 [oz_av] 3593.6 [oz_av] ATHEN A ([facility]) Diastolic blood pressure 68 mm[Hg] 68 mm[Hg] JOVON ([facility]) Body height 72 [in_i] 72 [in_i] JOVON ([facility]) Body mass index (BMI) [Ratio] 30.5 kg/m2 30.5 k g/m2 JOVON ([facility]) Systolic blood pressure 100 mm[Hg] 100 mm[Hg] A THENA ([facility]) Body weight 3593.6 [oz_av] 3593.6 [oz_av] ATHEN A ([facility]) Diastolic blood pressure 68 mm[Hg] 68 mm[Hg] JOVON ([facility]) Body height 72 [in_i] 72 [in_i] JOVON ([facility]) Body mass index (BMI) [Ratio] 30.5 kg/m2 30.5 k g/m2 JOVON ([facility]) Systolic blood pressure 100 mm[Hg] 100 mm[Hg] A THENA ([facility]) Body weight 3593.6 [oz_av] 3593.6 [oz_av] ATHEN A ([facility]) Diastolic blood pressure 68 mm[Hg] 68 mm[Hg] JOVON ([facility]) Body height 72 [in_i] 72 [in_i] JOVON ([facility]) Body mass index (BMI) [Ratio] 30.5 kg/m2 30.5 k g/m2 JOVON ([facility]) Systolic blood pressure 100 mm[Hg] 100 mm[Hg] A OMID ([facility]) Body weight 3593.6 [oz_av] 3593.6 [oz_av] ATHEN A ([facility]) Diastolic blood pressure 68 mm[Hg] 68 mm[Hg] JOVON ([facility]) Body height 72 [in_i] 72 [in_i] JOVON ([facility]) Body mass index (BMI) [Ratio] 30.5 kg/m2 30.5 k g/m2 JOVON ([facility]) Systolic blood pressure 100 mm[Hg] 100 mm[Hg] A OMID ([facility]) Body weight 3593.6 [oz_av] 3593.6 [oz_av] ATHEN A ([facility]) Diastolic blood pressure 68 mm[Hg] 68 mm[Hg] JOVON ([facility]) Body height 72 [in_i] 72 [in_i] JOVON ([facility]) Body mass index (BMI) [Ratio] 30.5 kg/m2 30.5 k g/m2 JOVON ([facility]) Systolic blood pressure 100 mm[Hg] 100 mm[Hg] A OMID ([facility]) Body weight 3593.6 [oz_av] 3593.6 [oz_av] ATHBEKAH A ([facility]) Body weight 216.00 [lb_av] 216.00 [lb_av] MEDEN T ([facility] Systolic blood pressure 120 mm[Hg] 120 mm[Hg] M EDENT ([facility] Diastolic blood pressure 60 mm[Hg] 60 mm[Hg] MEDENT ([facility] Body mass index (BMI) [Ratio] 29.3 kg/m2 29.3 k g/m2 MEDENT ([facility] Heart rate 58 /min 58 /min MEDENT ([facility] Body height 72 [in_i] 72 [in_i] MEDENT ([facility] 6'0" Body height 71 [in_i] 71 [in_i] MEDENT ([facility] 5'11" Body weight 216.00 [lb_av] 216.00 [lb_av] MEDEN T ([facility]) Systolic blood pressure 133 mm[Hg] 133 mm[Hg] M EDENT ([facility]) Diastolic blood pressure 79 mm[Hg] 79 mm[Hg] MEDENT ([facility]) Heart rate 69 /min 69 /min [facility] ([facility]) Body mass index (BMI) [Ratio] 30.1 kg/m2 30.1 k g/m2 MEDENT ([facility]) Body weight 97.978 kg 97.978 kg MEDENT ([facility]) Body temperature 97.0 [degF] 97.0 [degF] MEDENT ([facility]) Body height 71 [in_i] 71 [in_i] MEDENT ([facility]) 5'11" Body mass index (BMI) [Ratio] 29.4 kg/m2 29.4 k g/m2 MEDENT ([facility]) Systolic blood pressure 100 mm[Hg] 100 mm[Hg] M EDENT ([facility]) Diastolic blood pressure 64 mm[Hg] 64 mm[Hg] MEDENT ([facility]) Heart rate 73 /min 73 /min MEDENT ([facility]) Respiratory rate 18 /min 18 /min [facility] Oxygen saturation in Arterial blood by Pulse oximetry 100 % 100 % [facility] ([facility]) Body temperature 97.9 [degF] 97.9 [degF] [facility] Body weight 211.00 [lb_av] 211.00 [lb_av] MEDEN T ([facility]) Systolic blood pressure 128 mm[Hg] 128 mm[Hg] M EDENT ([facility]) Diastolic blood pressure 62 mm[Hg] 62 mm[Hg] MEDENT ([facility]) Heart rate 70 /min 70 /min MEDENT ([facility] ) Body temperature 97.0 [degF] 97.0 [degF] MEDENT ([facility]) Body height 70 [in_i] 70 [in_i] MEDENT ([facility] ) 5'10" Body weight 211.00 [lb_av] 211.00 [lb_av] MEDEN T ([facility] ) Body mass index (BMI) [Ratio] 30.3 kg/m2 30.3 k g/m2 MEDENT ([facility] ) Oxygen saturation in Arterial blood by Pulse oximetry 99 % 99 % MEDENT ([facility] ) Body weight 206.31 [lb_av] 206.31 [lb_av] MEDEN T ([facility] ) Systolic blood pressure 140 mm[Hg] 140 mm[Hg] M EDENT ([facility] ) Body mass index (BMI) [Ratio] 29.6 kg/m2 29.6 k g/m2 MEDENT ([facility] ) Body temperature 96.8 [degF] 96.8 [degF] MEDENT ([facility] ) Body height 70 [in_i] 70 [in_i] MEDENT ([facility] ) 5'10" Diastolic blood pressure 64 mm[Hg] 64 mm[Hg] MEDENT ([facility] ) Heart rate 73 /min 73 /min MEDENT ([facility] ) Oxygen saturation in Arterial blood by Pulse oximetry 99 % 99 % MEDENT ([facility] ) Diastolic blood pressure 80 mm[Hg] 80 mm[Hg] JOVON ([facility]) Body height 72 [in_i] 72 [in_i] JOVON ([facility]) Body mass index (BMI) [Ratio] 28.2 kg/m2 28.2 k g/m2 JOVON ([facility]) Systolic blood pressure 132 mm[Hg] 132 mm[Hg] A THENA ([facility]) Body weight 3332 [oz_av] 3332 [oz_av] JOVON ([facility]) Diastolic blood pressure 80 mm[Hg] 80 mm[Hg] JOVON ([facility]) Body height 72 [in_i] 72 [in_i] JOVON ([facility]) Body mass index (BMI) [Ratio] 28.2 kg/m2 28.2 k g/m2 JOVON ([facility]) Systolic blood pressure 132 mm[Hg] 132 mm[Hg] A THENA ([facility]) Body weight 3332 [oz_av] 3332 [oz_av] JOVON ([facility]) Diastolic blood pressure 80 mm[Hg] 80 mm[Hg] JOVON ([facility]) Body height 72 [in_i] 72 [in_i] JOVON ([facility]) Body mass index (BMI) [Ratio] 28.2 kg/m2 28.2 k g/m2 JOVON ([facility]) Systolic blood pressure 132 mm[Hg] 132 mm[Hg] [facility] Body weight 3332 [oz_av] 3332 [oz_av] JOVON ([facility]) Diastolic blood pressure 80 mm[Hg] 80 mm[Hg] JOVON ([facility]) Body height 72 [in_i] 72 [in_i] JOVON ([facility]) Body mass index (BMI) [Ratio] 28.2 kg/m2 28.2 k g/m2 JOVON ([facility]) Systolic blood pressure 132 mm[Hg] 132 mm[Hg] A THENA ([facility]) Body weight 3332 [oz_av] 3332 [oz_av] JOVON ([facility]) Diastolic blood pressure 80 mm[Hg] 80 mm[Hg] JOVON ([facility]) Body height 72 [in_i] 72 [in_i] JOVON ([facility]) Body mass index (BMI) [Ratio] 28.2 kg/m2 28.2 k g/m2 JOVON ([facility]) Systolic blood pressure 132 mm[Hg] 132 mm[Hg] A THENA ([facility]) Body weight 3332 [oz_av] 3332 [oz_av] JOVON ([facility]) Diastolic blood pressure 80 mm[Hg] 80 mm[Hg] JOVON ([facility]) Body height 72 [in_i] 72 [in_i] JOVON ([facility]) Body mass index (BMI) [Ratio] 28.2 kg/m2 28.2 k g/m2 JOVON ([facility]) Systolic blood pressure 132 mm[Hg] 132 mm[Hg] A THENA ([facility]) Body weight 3332 [oz_av] 3332 [oz_av] JOVON ([facility]) Diastolic blood pressure 80 mm[Hg] 80 mm[Hg] JOVON ([facility]) Body height 72 [in_i] 72 [in_i] JOVON ([facility]) Body mass index (BMI) [Ratio] 28.2 kg/m2 28.2 k g/m2 JOVON ([facility]) Systolic blood pressure 132 mm[Hg] 132 mm[Hg] [facility] Body weight 3332 [oz_av] 3332 [oz_av] JOVON ([facility]) Diastolic blood pressure 80 mm[Hg] 80 mm[Hg] JOVON ([facility]) Body height 72 [in_i] 72 [in_i] JOVON ([facility]) Body mass index (BMI) [Ratio] 28.2 kg/m2 28.2 k g/m2 JOVON ([facility]) Systolic blood pressure 132 mm[Hg] 132 mm[Hg] A THENA ([facility]) Body weight 3332 [oz_av] 3332 [oz_av] JOVON ([facility]) Diastolic blood pressure 80 mm[Hg] 80 mm[Hg] JOVON ([facility]) Body height 72 [in_i] 72 [in_i] JOVON ([facility]) Body mass index (BMI) [Ratio] 28.2 kg/m2 28.2 k g/m2 JOVON ([facility]) Systolic blood pressure 132 mm[Hg] 132 mm[Hg] A THENA ([facility]) Body weight 3332 [oz_av] 3332 [oz_av] JOVON ([facility]) Diastolic blood pressure 80 mm[Hg] 80 mm[Hg] JOVON ([facility]) Body height 72 [in_i] 72 [in_i] JOVON ([facility]) Body mass index (BMI) [Ratio] 28.2 kg/m2 28.2 k g/m2 JOVON ([facility]) Systolic blood pressure 132 mm[Hg] 132 mm[Hg] A THENA ([facility]) Body weight 3332 [oz_av] 3332 [oz_av] JOVON ([facility]) ID Date Data Source [id number] 05/10/2021 03:54:54 PM EDT [facility] Name Value Range Interpretation Code Description Data Source(s) PREFERRED NAME [facility] ID Date Data Source [id number] 02/26/2021 10:26:56 AM EDT [facility] Name Value Range Interpretation Code Description Data Source(s) WEIGHT RECORDED 225 lb 225 lb [facility] Body height Measured 70 in 70 in [facility] PREFERRED NAME [facility] ID Date Data Source [id number] 02/13/2021 01:28:52 PM EDT [facility] Name Value Range Interpretation Code Description Data Source(s) PREFERRED NAME [facility] PREFERRED NAME [facility] ID Date Data Source [id number] 02/05/2021 09:37:07 AM EDT [facility] Name Value Range Interpretation Code Description Data Source(s) WEIGHT RECORDED 227 lb 227 lb [facility] Body height Measured 70 in 70 in [facility] PREFERRED NAME [facility] PREFERRED NAME [facility] ID Date Data Source [id number] 12/12/2020 10:43:24 AM EDT [facility] Name Value Range Interpretation Code Description Data Source(s) PREFERRED NAME [facility] ID Date Data Source [id number] 11/22/2020 03:07:27 PM EST [facility] Name Value Range Interpretation Code Description Data Source(s) PREFERRED NAME [facility] ID Date Data Source [id number] 12/07/2020 10:28:23 AM EDT [facility] Name Value Range Interpretation Code Description Data Source(s) PREFERRED NAME [facility] Patient Treatment Plan of Care Planned Activity Planned Date Details Description Data Source (s) olodaterol 0.0025 MG/ACTUAT / tiotropium 0.0025 MG/ACT UAT Metered Dose Inhaler 07/08/2021 12:00:00 AM EDT [facility]) Prednisone 10 MG Oral Tablet 07/07/2021 12:00:00 AM EDT [place] ([facility]) Levofloxacin 750 MG Oral Tablet [Levaquin] 07/07/2021 12:00:00 AM E DT [place] ([facility]) Estradiol 2 MG Oral Tablet 05/20/2021 12:00:00 AM EDT [facility] ([facility]) tramadol hydrochloride 50 MG Oral Tablet 02/20/2021 12:00:[address] [facility] Docusate Sodium 100 MG Oral Capsule 02/20/2021 12:00:[address] [facility] Acetaminophen 325 MG Oral Tablet 02/20/2021 12:00:[address] [facility] tramadol hydrochloride 50 MG Oral Tablet 02/19/2021 01:06:[address] [facility] ondansetron (ZOFRAN) injection 4 mg 02/19/2021 01:02:[address] [facility] albuterol (PROVENTIL HFA) inhaler 2 puff 02/19/2021 12:55:[address] [facility] Albuterol Sulfate HFA 108 (90 Base) MCG/ ACT Inhalation Aerosol Solution (PROVENTIL HFA) 01/08/2021 12:00:00 AM EDT [facility] Estradiol 2 MG Oral Tablet 11/14/2020 12:00:00 AM EST [facility] ([facility]) Estradiol 2 MG Oral Tablet 10/12/2020 12:00:00 AM EST [facility] ([facility]) Estradiol 2 MG Oral Tablet 07/13/2020 12:00:00 AM EDT [facility] ([facility]) Estradiol 2 MG Oral Tablet 07/13/2020 12:00:00 AM EDT [facility] ([facility]) Progesterone 100 MG Oral Capsule [Prometrium] 05/21/2020 12:00:00 A M EDT [facility] ([facility]) Finasteride 5 MG Oral Tablet 04/23/2020 12:00:00 AM EDT [facility] ([facility]) tramadol hydrochloride 50 MG Oral Tablet JOVON ([facility]) Progesterone 100 MG Oral Capsule JOVON ([facility]) Prednisone 20 MG Oral Tablet J[facility]ON ([facility]) OneTouch Ultra Blue Test Strip USE DIRECTED FOUR TIMES A DAY JOVON ([facility]) Metoprolol Tartrate 25 MG Oral Tablet JOVON ([facility]) 1 ML Leuprolide Acetate 3.75 MG/ML [facility] Lisinop[facility] 2.5 MG Oral Tablet JOVON ([facility]) liothyronine sodium 0.025 MG Oral Tablet JOVON ([facility]) Levothyroxine Sodium 0.025 MG Oral Tablet [Levo-T] JOVON ([facility]) Finasteride 5 MG Oral Tablet JOVON ([facility]) doxycycline hyclate 100 MG Oral Capsule JOVON ([facility]) Docusate Sodium 100 MG Oral Capsule JOVON ([facility]) Clarithromycin 500 MG Oral Tablet [place] ([facility]) Azithromycin 250 MG Oral Tablet [place] ([facility]) ammonium lactate 120 MG/ML Topical Cream JOVON ([facility]) tramadol hydrochloride 50 MG Oral Tablet JOVON ([facility]) olodaterol 0.0025 MG/ACTUAT / tiotropium 0.0025 MG/ACT UAT Metered Dose Inhaler [facility]ON ([facility]) Progesterone 100 MG Oral Capsule JOVON ([facility]) Prednisone 20 MG Oral Tablet JOVON ([facility]) OneTouch Ultra Blue Test Strip USE DIRECTED FOUR TIMES A DAY JOVON ([facility]) Metoprolol Tartrate 25 MG Oral Tablet JOVON ([facility]) 1 ML Leuprolide Acetate 3.75 MG/ML Prefilled Syringe [Lupron] JOVON [facility]) liothyronine sodium 0.025 MG Oral Tablet JOVON ([facility]) Levothyroxine Sodium 0.025 MG Oral Tablet [Levo-T] JOVON ([facility]) Finasteride 5 MG Oral Tablet JOVON ([facility]) doxycycline hyclate 100 MG Oral Capsule JOVON ([facility]) Docusate Sodium 100 MG Oral Capsule JOVON ([facility]) Clarithromycin 500 MG Oral Tablet J[facility] ([facility]) Azithromycin 250 MG Oral Tablet J[facility]ON ([facility]) ammonium lactate 120 MG/ML Topical Cream JOVON ([facility]) tramadol hydrochloride 50 MG Oral Tablet JOVON ([facility]) Progesterone 100 MG Oral Capsule JOVON ([facility]) Prednisone 20 MG Oral Tablet JOVON ([facility]) liothyronine sodium 0.025 MG Oral Tablet JOVON ([facility]) Levothyroxine Sodium 0.025 MG Oral Tablet [Levo-T] JOVON ([facility]) Finasteride 5 MG Oral Tablet J[facility]ON ([facility]) doxycycline hyclate 100 MG Oral Capsule JOVON ([facility]) Docusate Sodium 100 MG Oral Capsule JOVON ([facility]) Clarithromycin 500 MG Oral Tablet J[facility] ([facility]) Progesterone 100 MG Oral Capsule JOVON ([facility]) Prednisone 20 MG Oral Tablet J[facility]ON ([facility]) liothyronine sodium 0.025 MG Oral Tablet JOVON ([facility]) Levothyroxine Sodium 0.025 MG Oral Tablet [Levo-T] JOVON ([facility]) Finasteride 5 MG Oral Tablet JOVON ([facility]) doxycycline hyclate 100 MG Oral Capsule JOVON ([facility]) Clarithromycin 500 MG Oral Tablet JOVON ([facility]) Progesterone 100 MG Oral Capsule JOVON ([facility]) Prednisone 20 MG Oral Tablet JOVON ([facility]) liothyronine sodium 0.025 MG Oral Tablet JOVON ([facility]) Levothyroxine Sodium 0.025 MG Oral Tablet [Levo-T] JOVON ([facility]) Finasteride 5 MG Oral Tablet [facility] ([facility]) doxycycline hyclate 100 MG Oral Capsule JOVON ([facility]) Clarithromycin 500 MG Oral Tablet JOV[facility] ([facility]) Prednisone 20 MG Oral Tablet [facility] ([facility]) liothyronine sodium 0.025 MG Oral Tablet JOVON ([facility]) Levothyroxine Sodium 0.025 MG Oral Tablet [Levo-T] JOVON ([facility]) Finasteride 5 MG Oral Tablet [facility] ([facility]) doxycycline hyclate 100 MG Oral Capsule JOVON ([facility]) Finasteride 5 MG Oral Tablet [facility] ([facility]) Progesterone 100 MG Oral Capsule [facility] ([facility]) Prednisone 20 MG Oral Tablet [facility]OVON ([facility]) liothyronine sodium 0.025 MG Oral Tablet JOVON ([facility]) Levothyroxine Sodium 0.025 MG Oral Tablet [Levo-T] JOVON ([facility]) Finasteride 5 MG Oral Tablet JOVON ([facility]) doxycycline hyclate 100 MG Oral Capsule JOVON ([facility]) Estradiol 2 MG Oral Tablet [facility] ([facility])
[2021-08-28 19:49] VITALS: BP 132/72
== END 2021-08-28 19:49 | disposition home or self-care (01) ==
LOC: M ED 14:51
DX: T25.121A Burn of first degree of right foot, initial encounter (principal); T25.221A Burn of second degree of right foot, initial encounter; T31.0 Burns involving less than 10% of body surface; E11.9 Type 2 diabetes mellitus without complications; I25.2 Old myocardial infarction; E03.9 Hypothyroidism, unspecified; Z79.899 Other long term (current) drug therapy; Z79.82 Long term (current) use of aspirin; Z79.890 Hormone replacement therapy; Z79.4 Long term (current) use of insulin; Z88.0 Allergy status to penicillin

== ENCOUNTER 2021-08-31 11:30 | Emergency (ER) | payer OTHER ==
[~2021-08-31] VITALS: Ht 180.3 cm; Wt 100.0 kg
[~2021-08-31 11:30] MED LIST changes: +BACI500O21 TOP; +BACT800T5 PO; +LEVO137T2
[2021-08-31 11:31] VITALS: BP 120/62
[2021-08-31] MEDS ORDERED: BACI500O8 (11:36)
--- OUTSIDE RECORDS SUMMARY | 2021-08-31 11:39 | CCD ---
Author Author [facility] Organization [facility] Address Unknown Phone Unavailable Care Team Providers Care Pulley Man Name Role Phone Shelton, Celena Unavailable Unavailable Shelton, Celena Unavailable Unavailable Shelton, Celena Unavailable Unavailable Shelton, Celena Unavailable Unavailable Shelton, Celena Unavailable Unavailable Shelton, Celena Unavailable Unavailable Alexandr Dixon MD Unavailable Unavailable Alexandr Dixon MD Unavailable Unavailable Alexandr Dixon MD Unavailable Unavailable Alexandr Dixon MD Unavailable Unavailable Alexandr Dixon MD Unavailable Unavailable Alexandr Dioxn MD Unavailable Unavailable Alexandr Dixon MD Unavailable [...] Unavailable Nelsonolavsky Graciela MD Unavailable Unavailable Nelsonolavsky Gracilea MD Unavailable Unavailable Nelsonolavsky Graciela MD Unavailable Unavailable Nikolavsky Graciela MD Unavailable Unavailable Nikolavsky, Graciela MD Unavailable Unavailable Nikolavsky Graciela MD Unavailable Unavailable Nelsonolavsky Graciela MD Unavailable Unavailable Veley, Lucy ADJUNCT TRAINER Unavailable Unavailable Veley, Lucy ADJUNCT TRAINER Unavailable Unavailable Veley, Luyc ADJUNCT TRAINER Unavailable Unavailable Veley, Lucy ADJUNCT TRAINER Unavailable Unavailable Veley, Lucy ADJUNCT TRAINER Unavailable Unavailable Veley, Lucy ADJUNCT TRAINER Unavailable Unavailable Veley, Lucy ADJUNCT TRAINER Unavailable Unavailable Veley, Lucy ADJUNCT TRAINER Unavailable Unavailable Veley, Lucy ADJUNCT TRAINER Unavailable Unavailable Veley, Lucy ADJUNCT TRAINER Unavailable Unavailable Veley, Lucy ADJUNCT TRAINER Unavailable Unavailable Veley, Lucy ADJUNCT TRAINER Unavailable Unavailable Veley, Lucy ADJUNCT TRAINER Unavailable Unavailable Veley, Lucy ADJUNCT TRAINER Unavailable Unavailable Veley, Lucy ADJUNCT TRAINER Unavailable Unavailable Veley, Lucy ADJUNCT TRAINER Unavailable Unavailable Veley, Lucy ADJUNCT TRAINER Unavailable Unavailable Veley, Lucy ADJUNCT TRAINER Unavailable Unavailable Veley, Lucy ADJUNCT TRAINER Unavailable Unavailable Veley, Lucy ADJUNCT TRAINER Unavailable Unavailable Veley, Lucy ADJUNCT TRAINER Unavailable Unavailable Veley, Lucy ADJUNCT TRAINER Unavailable Unavailable Veley, Lucy ADJUNCT TRAINER Unavailable Unavailable Veley, Lucy ADJUNCT TRAINER Unavailable Unavailable Veley, Lucy ADJUNCT TRAINER Unavailable Unavailable Veley, Lucy ADJUNCT TRAINER Unavailable Unavailable Veley, Lucy ADJUNCT TRAINER Unavailable Unavailable Veley, Lucy ADJUNCT TRAINER Unavailable Unavailable Veley, Lucy ADJUNCT TRAINER Unavailable Unavailable Veley, Lucy ADJUNCT TRAINER Unavailable Unavailable Veley, Lucy ADJUNCT TRAINER Unavailable Unavailable Veley, Lucy ADJUNCT TRAINER Unavailable Unavailable Veley, Lucy ADJUNCT TRAINER Unavailable Unavailable Veley, Lucy ADJUNCT TRAINER Unavailable Unavailable Veley, Lucy ADJUNCT TRAINER Unavailable Unavailable Joanne ARGUELLES DPM Unavailable Unavailable [...] DOLORES PA Unavailable Unavailable Cassidy, E Charisse ADJUNCT TRAINER Unavailable Unavailable Cassidy, E Charisse ADJUNCT TRAINER Unavailable Unavailable Cassidy, E Charisse ADJUNCT TRAINER Unavailable Unavailable Cassidy, E Charisse ADJUNCT TRAINER Unavailable Unavailable Cassidy, E Charisse ADJUNCT TRAINER Unavailable Unavailable Cassidy, E Charisse ADJUNCT TRAINER Unavailable Unavailable Cassidy, E Charisse ADJUNCT TRAINER Unavailable Unavailable Cassidy, E Charisse ADJUNCT TRAINER Unavailable Unavailable Cassidy, E Charisse ADJUNCT TRAINER Unavailable Unavailable Cassidy, E Charisse ADJUNCT TRAINER Unavailable Unavailable Cassidy, E Charisse ADJUNCT TRAINER Unavailable Unavailable Cassidy, E Charisse ADJUNCT TRAINER Unavailable Unavailable Cassidy, E Charisse ADJUNCT TRAINER Unavailable Unavailable Cassidy, E Charisse ADJUNCT TRAINER Unavailable Unavailable Cassidy, E Charisse ADJUNCT TRAINER Unavailable Unavailable Cassidy, E Charisse ADJUNCT TRAINER Unavailable Unavailable Cassidy, E Charisse ADJUNCT TRAINER Unavailable Unavailable Cassidy, E Charisse ADJUNCT TRAINER Unavailable Unavailable Cassidy, E Charisse ADJUNCT TRAINER Unavailable Unavailable Cassidy, E Charisse ADJUNCT TRAINER Unavailable Unavailable Cassidy, E Charisse ADJUNCT TRAINER Unavailable Unavailable Cassidy, E Charisse ADJUNCT TRAINER Unavailable Unavailable Cassidy, E Charisse ADJUNCT TRAINER Unavailable Unavailable PRYBYLOWSKI, E TITA PA Unavailable [...] Fish, Stephanie Hoyt MD Unavailable Unavailable Fish, Stephaine Hoyt MD Unavailable Unavailable Fish, Stephanie Hoyt [...] Evelina BASS Unavailable Unavailable ASHLEY, AMMON MOLLY SPINDLE TESTER-C Unavailable Unavailable ASHLEY, AMMON MOLLY SPINDLE TESTER-C Unavailable Unavailable ASHLEY, AMMON MOLLY SPINDLE TESTER-C Unavailable Unavailable ASHLEY, AMMON MOLLY SPINDLE TESTER-C Unavailable Unavailable ASHLEY, AMMON MOLLY SPINDLE TESTER-C Unavailable Unavailable ASHLEY, AMMON MOLLY SPINDLE TESTER-C Unavailable Unavailable ASHLEY, AMMON MOLLY SPINDLE TESTER-C Unavailable Unavailable ASHLEY, AMMON MOLLY SPINDLE TESTER-C Unavailable Unavailable ASHLEY, AMMON MOLLY SPINDLE TESTER-C Unavailable Unavailable ASHLEY, AMMON MOLLY SPINDLE TESTER-C Unavailable Unavailable ASHLEY, AMMON MOLLY SPINDLE TESTER-C Unavailable Unavailable ASHLEY, AMMON MOLLY SPINDLE TESTER-C Unavailable Unavailable ASHLEY, AMMON MOLLY SPINDLE TESTER-C Unavailable Unavailable ASHLEY, AMMON MOLLY SPINDLE TESTER-C Unavailable Unavailable ASHLEY, AMMON MOLLY SPINDLE TESTER-C Unavailable Unavailable ASHLEY, AMMON MOLLY SPINDLE TESTER-C Unavailable Unavailable ASHLEY, AMMON MOLLY SPINDLE TESTER-C Unavailable Unavailable Real Rome MD Unavailable Unavailable [...] Rome, Real Rito MD Unavailable Unavailable Rome, Eral Rito MD Unavailable Unavailable Rome, Real Rito [...] is protected by Article 27-F of the [facility] Public Health law. If you continue you may have access to information: Regarding HIV / AIDS; Provided by facilities licensed or operated by the [facility] Office of Mental Health; or Provided by the [facility] Office for People With Developmental Disabilities. If such information is present, then the following [facility] mandated warning applies: This information [...] law may result in a fine or fci sentence or both. A general authorization for the release of medical or other information is NOT sufficient authorization for further disc losure. Allergies and Adverse Reactions Type Description Substance Reaction Status Data Source(s ) Allergy to substance Allergy to substance Allergy to substance [place] ([facility]) Allergy to substance Allergy to substance Allergy to substance [place] ([facility]) Allergy to substance Allergy to substance Allergy to substance [place] ([facility]) Family History Family Member Name Family Member Gender Family Member Status Date o f Status Description Data Source(s) Unknown Female Diagnosis 03/27/2020 12:00:00 AM EDT [facility] ([facility]) Unknown Unknown Problem [facility] ([facility]) father's side sister Unknown Male Problem [facility] ([facility] Unknown Male Problem [facility] ([facility]) Unknown Female Problem [facility] ([facility]) Unknown Female Problem [facility] ([facility]) Unknown Female Problem [facility] ([facility]) Encounters Encounter Providers Location Date Indications Data Source(s ) Outpatient Attender: Evelina Soliz MD Physical Therapy 07/22 09:45:00 AM EDT [facility] ([facility]) Celena Mcbride MD: [address] [place] [address], Ph. Attender: Celena Mcbride [facility] Medical 07/12/2021 12:00:00 AM EDT [place] ([facility]) Celena Mcbride MD: [address] [place] [address], Ph. Attender: Celena Mcbride [facility] Medical 06/07/2021 12:00:00 AM EDT [facility] ([facility]) Celena Mcbride MD: [address], [place] [address], Ph. Attender: Celena Mcbride [facility] Medical 06/07/2021 12:00:00 AM EDT [place] ([facility]) Outpatient Attender: MOLLY ASHLEY [place] 05/29/2021 12:45:00 PM EDT [facility] ([facility]) Attender: TITA Granger 05/20/2021 10:23:00 AM EDT - 05/20/2021 10:23:00 AM EDT [facility] ([facility]) Outpatient Attender: Rito [place] 04/17/2021 08:30:00 AM EDT [facility] ([facility]) Attender: Celena Granger 04/15 01:53:00 PM EDT - 04/15/2021 01:53:00 PM EDT [facility] ([facility]) Attender: TITA Lopez 04/12/2021 10:30:00 AM EDT - 04/12/2021 10:30:00 AM EDT Gender identity disorder, unspecified [facility] ([facility]) Gender identity disorder, unspecified Outpatient Attender: Rito [place] 04/03/2021 02:00:00 PM EDT [facility] ([facility]) Attender: Angelic Granger 0 03/28/2021 03:52:00 PM EDT - 03/28/2021 03:52:00 PM EDT [facility] ([facility]) Outpatient Attender: Evelina Soliz MD Physical Therapy 03/21 02:30:00 PM EDT [facility] ([facility]) Outpatient Attender: Graciela Thompson MDReferrer: Lucy Ceron NP [id number] 03/06/2021 12:00:00 AM EDT - 03/06/2021 04:18:40 PM EDT [facility] Celena Mcbride MD: [address] [place] [address], [place] [address], Ph. Attender: Celena Mcbride [facility] 03/05/2021 12:00:00 AM EDT [facility] ([facility]) Celena Mcbride MD: [address] , [place] [address], Ph. Attender: Celena Mcbride [facility] Medical 03/05/2021 12:00:00 AM EDT [facility] ([facility]) Celena Mcbride MD: [address] [place] [address], Ph. Attender: Celena Mcbride [facility] 03/05/2021 12:00:00 AM EDT [place] ([facility]) Outpatient Attender: Graciela Thompson MDAdmitter: Graciela Thompson MD [id number] 02/19/2021 12:00:00 AM EDT - 02/20/2021 08:34:00 AM ED T Gender identity disorder, unspecified [facility] Gender identity disorder, unspecified Patient discharged. Outpatient Attender: Damaris Torres MDReferrer: Graciela niño MD 02/13/2021 12:00:00 AM EDT [facility] pretest Celena Mcbride MD: [address] [place] [address], Ph. Attender: Celena Mcbride [facility] 02/12/2021 12:00:00 AM EDT [facility] ([facility]) Celena Mcbride MD: [address] [place] [address], Ph. Attender: Celena Mcbride [facility] 02/12/2021 12:00:00 AM EDT [facility] ([facility]) Celena Mcbride MD: [address], [place] [address], Ph. Attender: Celena Mcbride [facility] Medical 02/12/2021 12:00:00 AM EDT [facility] ([facility]) Celena Mcbride MD: [address], [place] [address], Ph. Attender: Celena Mcbride [facility] Medical 02/12/2021 12:00:00 AM EDT [facility] ([facility]) Outpatient Attender: Graciela BALDERASeferrer: Lucy Ceron NP [id number] 01/28/2021 12:00:00 AM EDT - 01/28/2021 12:29:32 PM ED T Gender identity disorder, unspecified [facility] Gender identity disorder, unspecified Celena Mcbride MD: [address], [place] [address], Ph. Attender: Celena Mcbride [facility] Medical 01/21/2021 12:00:00 AM EDT [facility] ([facility]) Celena Mcbride MD: [address], [place] [address], Ph. Attender: Celean Mcbride [facility] Medical 01/21/2021 12:00:00 AM EDT [place] ([facility]) Celena Mcbride MD: [address], [place] [address], Ph. Attender: Celena Mcbride [facility] Medical 01/21/2021 12:00:00 AM EDT [place] ([facility]) Celena Mcbride MD: [address], [place] [address], Ph. Attender: Celena Mcbride [facility] Medical 01/21/2021 12:00:00 AM EDT [facility] ([facility]) Celena Mcbride MD: [address], [place] [address], Ph. Attender: Celena Mcbride [facility] Medical 01/21/2021 12:00:00 AM EDT [facility] ([facility]) Celena Mcbride MD: [address], [place] [address], Ph. Attender: Celena Mcbride [facility] Medical 12/19/2020 12:00:00 AM EDT [facility] ([facility]) Celena Mcbride MD: [address], [place] [address], Ph. Attender: Celena Mcbride [facility] Medical 12/19/2020 12:00:00 AM EDT [place] ([facility]) Celena Mcbride MD: [address], [place] [address], Ph. Attender: Celena Mcbride [facility] Medical 12/19/2020 12:00:00 AM EDT [place] ([facility]) Celena Mcbride MD: [address], [place] [address], Ph. Attender: Celena Mcbride [facility] Medical 12/19/2020 12:00:00 AM EDT [facility] ([facility]) Celena Mcbride MD: [address], [place] [address], Ph. Attender: Celena Mcbride [facility] Medical 12/19/2020 12:00:00 AM EDT [place] ([facility]) Celena Mcbride MD: [address], [place] [address], Ph. Attender: Celena Mcbride [facility] Medical 12/19/2020 12:00:00 AM EDT [place] ([facility]) Outpatient Attender: Evelina Soliz MD Physical Therapy 12/14 11:45:00 AM EDT [place] ([facility]) Outpatient Attender: Jurgen Larsen MD 12/13/2020 12:00:00 AM [facility] Celena Mcbride MD: [address], [place] [address], Ph. Attender: Celena Mcbride [facility] Medical 12/12/2020 12:00:00 AM EDT [place] ([facility]) Celena Mcbride MD: [address], [place] [address], Ph. Attender: Celena Mcbride [facility] Medical 12/12/2020 12:00:00 AM EDT [place] ([facility]) Celena Mcbride MD: [address], [place] [address], Ph. Attender: Celena Mcbride [facility] Medical 12/12/2020 12:00:00 AM EDT [place] ([facility]) Celena Mcbride MD: [address], [place] [address], Ph. Attender: Celena Mcbride [facility] Medical 12/12/2020 12:00:00 AM EDT [place] ([facility]) Celena Mcbride MD: [address], [place] [address], Ph. Attender: Celena Mcbride [facility] Medical 12/12/2020 12:00:00 AM EDT [place] ([facility]) Celena Mcbride MD: [address], [place] [address], Ph. Attender: Celena Mcbride [facility] Medical 12/12/2020 12:00:00 AM EDT [place] ([facility]) Celena Mcbride MD: [address], [place] [address], Ph. Attender: Celena Mcbride [facility] Medical 12/12/2020 12:00:00 AM EDT [place] ([facility]) Outpatient Attender: Obi Means 12/12/2020 12:00:00 AM [facility] Outpatient Attender: Jurgen Larsen MD 12/07/2020 12:00:00 AM [facility] Outpatient Attender: NATHEN MEANS MD [facility] [place] 12/06/2020 02:30:00 PM EDT [facility] ([facility]) Attender: TITA Granger 11/30/2020 10:05:00 AM EST - 11/30/2020 10:05:00 AM EST [facility] ([facility]) Attender: TITA Granger 11/14/2020 10:17:00 AM EST - 11/14/2020 10:17:00 AM EST [facility] ([facility]) Attender: Angelic Arauz 12:30:00 PM EST - 11/13/2020 12:30:00 PM EST [facility] ([facility]) Attender: Angelic Arauz 08/2021 08:07:00 AM EST - 11/02/2020 08:07:00 AM EST [facility] ([facility]) Outpatient Attender: BRYCE ARGUELLES [facility] Office 10/22 08:00:00 AM EST [facility] ([facility] Outpatient Attender: Javon Dixon MD Main Office 10/23/2020 08:00:00 AM EST [facility] ([facility]) Attender: TITA Granger 10/17/2020 03:17:00 PM EST - 10/17/2020 03:17:00 PM EST [facility] ([facility]) Attender: TITA Lopez 10/12/2020 10:30:00 AM EST - 10/12/2020 10:30:00 AM EST Gender identity disorder, unspecified [facility] ([facility]) Gender identity disorder, unspecified Outpatient Attender: DOLORES Corrales Primary 10/11/2020 11:00:00 AM EST [facility] ([facility]) Attender: TITA Lopez 10/03/2020 03:34:00 PM EST - 10/03/2020 03:34:00 PM EST [facility] ([facility]) Attender: TITA Granger 09/27/2020 01:16:00 PM EST - 09/27/2020 01:16:00 PM EST [facility] ([facility]) Attender: TITA Granger 09/25/2020 01:27:00 PM EST - 09/25/2020 01:27:00 PM EST [facility] ([facility]) Outpatient Attender: Evelina Soliz MD Physical Therapy 09/20 02:00:00 PM EST [facility] ([facility]) Attender: Angelic Granger 1 10/31/2019 10:49:00 AM EST - 08/30/2020 10:49:00 AM EST [facility] ([facility]) Attender: TITA Granger 08/29/2020 07:43:00 AM EST - 08/29/2020 07:43:00 AM EST [facility] ([facility]) Attender: TITA Granger 08/28/2020 09:48:00 AM EST - 08/28/2020 09:48:00 AM EST [facility] ([facility]) Outpatient Attender: Evelina Soliz MD Physical Therapy 08/20 12:45:00 PM EST [facility] ([facility]) Attender: TITA Granger 07/24/2020 09:24:00 AM EST - 07/24/2020 09:24:00 AM EST [facility] ([facility]) Attender: TITA Granger 07/23/2020 10:13:00 AM EST - 07/23/2020 10:13:00 AM EST [facility] ([facility]) Attender: TITA Stoll 09:01:00 AM EDT - 07/18/2020 09:01:00 AM EDT [facility] ([facility]) Attender: TITA Stoll 11:42:00 AM EDT - 07/17/2020 11:42:00 AM EDT [facility] ([facility]) Attender: TITA Granger 07/16/2020 12:42:00 PM EDT - 07/16/2020 12:42:00 PM EDT [facility] ([facility]) Attender: TITA Lopez 07/13/2020 10:30:00 AM EDT - 07/13/2020 10:30:00 AM EDT Gender Identity Disorder [facility] ([facility]) Gender Identity Disorder Outpatient FP 07/11/2020 09:38:00 AM EDT [facility] SUSANNE Malin-BC: [address], [place] [address], Ph. Attender: Charisse Cassidy NP [facility] Medical 07/11/2020 12:00:00 AM EDT [place] ([facility]) SUSANNE Malin-BC: [address], [place] [address], Ph. Attender: Charisse Cassidy NP [facility] Medical 07/11/2020 12:00:00 AM EDT [place] ([facility]) SUSANNE Malin-BC: [address], [place] [address], Ph. Attender: Charisse Cassidy NP [facility] Medical 07/11/2020 12:00:00 AM EDT [place] ([facility]) SUSANNE Malin-BC: [address], [place] [address], Ph. Attender: Charisse Cassidy NP [facility] Medical 07/11/2020 12:00:00 AM EDT [place] ([facility]) SUSANNE Malin-BC: [address], [place] [address], Ph. Attender: Charisse Cassidy NP [facility] Medical 07/11/2020 12:00:00 AM EDT [place] ([facility]) SUSANNE Malin-BC: [address], [place] [address], Ph. Attender: Charisse Cassidy NP [facility] Medical 07/11/2020 12:00:00 AM EDT [place] ([facility]) SUSANNE Malin-BC: [address], [place] [address], Ph. Attender: Charisse Cassidy NP [facility] 07/11/2020 12:00:00 AM EDT [facility]) XUAN Malin: [address], [place] [address], Ph. Attender: Charisse Cassidy NP [facility] 07/11/2020 12:00:00 AM EDT [facility]) BLAIR MalinBC: [address], [place] [address], Ph. Attender: Charisse Cassidy NP [facility] 07/11/2020 12:00:00 AM EDT [facility]) XUAN Malin: [address], [place] [address], Ph. Attender: Charisse Cassidy NP [facility] 07/11/2020 12:00:00 AM EDT [place] ([facility]) Medications Medication Brand Name Start Date Product Form Dose Route Admi nistrative Instructions Pharmacy Instructions Status Indications Reaction Description Data Source(s) 500 unit/gram 08/29/2021 12:00:00 AM EST ointment 28 APPLY TWO TIMES A DAY TO AFFECTED AREAS APPLY TWO TIMES A DAY TO AFFECTED AREAS SOLD: 08/29/2021 [facility] 800-160 mg 08/29/2021 12:00:00 AM EST tablet 13 TAKE ONE TABLET BY MOUTH TWICE A DAY TAKE ONE TABLET BY MOUTH TWICE A DAY SOLD: 08/29/2021 [facility] 60 ACTUAT Fluticasone propionate 0.113 M G/ACTUAT [...] 25 MG/ACTUAT / tiotropium 0.0025 MG/ACTUAT Inhalation [place] [facility] ([facility]) Levofloxacin 750 MG Oral Tablet [Levaqui n] Levaquin 750 mg tablet Take 1 tablet every day by oral route for 7 days. Levaquin 750 mg tablet Take 1 tablet varsha ry day by oral route for 7 days. 07/07/2021 12:00:00 AM EDT 1 completed levofloxacin 750 MG Oral Tablet [Levaquin] [facility] ([facility]) Prednisone 10 MG Oral Tablet prednisone 10 [...] prednisone 10 MG Oral Tablet ATH [place] ([facility]) 10 mg 07/06/2021 12:00:00 AM [...] TIMES A DAY [facility] ([facility]) 2 mg 05/20/2021 12:00:00 AM EDT tablet [...] 12:00: 00 AM EDT ORAL active [facility] ([facility], ) 60 ACTUAT Fluticasone propionate 0.113 M [...] on Thu02/20/21 at 0900, For 30 days [facility] Medication administered onsite levothyroxine (SYNTHROID) tablet 137 mcg 02/20/2021 09:00: 00 AM EDT 137 ug Oral active 137 mcg, Oral, Every morning, First dose on Thu02/20/21 at 0900, For 30 days [facility] Medication administered onsite Simvastatin 20 MG Oral Tablet simvastatin (ZOCOR) tabl et 40 mg simvastatin (ZOCOR) tablet 40 mg 02/20/2021 09:00:00 AM EDT 40 mg Oral active 40 mg, Oral, Every morning, First dose on Thu02/20/21 at 0900, For 30 days [facility] Medication administered onsite metoprolol (LOPRESSOR) split tablet 12.5 mg [id number] 02/20/2021 09:00:00 AM EDT 12.5 mg Oral active 12.5 mg, Oral, Every morning, First dose on Thu02/20/21 at 0900, For 30 days [facility] Medication administered onsite tiotropium - olodaterol (STIOLTO RESPIMAT) inhalation spray 2 puff [id number] 02/20/2021 09:00:00 AM EDT 2 {puff} Inhalation active 2 puff, Inhalation, Every morning, First dose on Thu02/20/21 at 0900, For 30 days [facility] Medication administered onsite pantoprazole 40 MG Delayed Release Oral Tablet pantoprazole (PROTONIX) EC tablet 40 mg pantoprazole (PROTONIX) EC tablet 40 mg 02/20/2021 09:00:00 AM E DT 40 mg Oral active 40 mg, Ora l, Daily Standard, First dose on Thu02/20/21 at 0900, For 30 days
Do not crush or chew
[facility] Medication administered onsite Acetaminophen 325 MG Oral Tablet Acetaminophen 325 MG Oral Tablet (Tylenol) Acetaminophen 325 MG Oral Tablet (Tylenol) 02/20/2021 12:00:00 AM EDT 650 mg Oral active Take 2 tablets by [facility] every 6 (six) hours for 10 days [facility] Docusate Sodium 100 MG Oral Capsule Docu sate Sodium 100 MG Oral Capsule (COLACE) Docusate Sodium 100 MG Oral Capsule (COLACE) 02/20/2021 12:00:00 AM EDT 100 mg Oral active Take 1 capsule by mouth Two Times Daily for 10 days [facility] tramadol hydrochloride 50 MG Oral Tablet traMADol HCl 50 MG Oral Tablet (ULTRAM) traMADol HCl 50 MG Oral Tablet (ULTRAM) 02/20/2021 12:00:00 AM EDT 50 mg Oral active Take 1 tablet by mouth every 6 (six) hours as needed for up to 2 days, Max Daily Dose: 200 mg [facility] 50 mg 02/20/2021 12:00:00 AM EDT tablet 4 TAKE ONE TABLET BY MOUTH EVERY 6 HOURS NEEDED FOR UP TO 2 DAYS, MAXIMUM DAILY DOSE = FOUR TABLETS TAKE ONE TABLET BY MOUTH EVERY 6 HOURS NEEDED FOR UP TO 2 DAYS, MAXIMUM DAILY DOSE = FOUR TABLETS SOLD: 02/20/2021 [facility] 100 mg 02/20/2021 12:00:00 AM EDT capsule 20 TAKE ONE CAPSULE BY MOUTH TWICE A DAY FOR 10 DAYS TAKE ONE CAPSULE BY MOUTH TWICE A DAY FOR 10 DAYS SOLD : 02/20/2021 [facility] Docusate Sodium 100 MG Oral Capsule docusate sodium (C OLACE) capsule 100 mg docusate sodium (COLACE) capsule 100 mg 02/19/2021 09:00:00 PM EDT 100 mg Oral active 100 mg, Oral, 2 Times Daily, First dose on Thu02/19/21 at 2100, For 30 days [facility] Medication administered onsite heparin (porcine) 5000 UNIT/ML injection 5,000 Units [id number] 02/19/2021 05:00:00 PM EDT 5000 U Subcutaneous active 5,000 Units, Subcutaneous, Three Times Daily Standard, First dose on Thu02/19/21 at 1700, For 30 days [facility] Medication administered onsite NaCl infusion 0.9 % [id number] 02/19/2021 01:15:00 PM EDT Intravenous aborted at 100 mL/hr, Intrav enous, Continuous, Starting on Thu02/19/21 at 1315, For 30 days [facility] Medication administered onsite Acetaminophen 325 MG Oral Tablet acetaminophen (TYLENO L) tablet 650 mg acetaminophen (TYLENOL) tablet 650 mg 02/19/2021 01:15:00 PM EDT 65 0 mg Oral active 650 mg, Oral, E very 6 hours, First dose on Thu02/19/21 at 1315, For 30 days
Maximum daily dose of acetaminophen is 3,000 mg from all sources in 24 hours.
[facility] Medication administered onsite tramadol hydrochloride 50 MG Oral Tablet tramadol (ULT JEREMY) tablet 50 mg tramadol (ULTRAM) tablet 50 mg 02/19/2021 01:06:10 PM EDT 50 mg Oral active 50 mg, Oral, Every 6 hours PRN, Moderate Pain (Pain Scale Score 4-6), Starting on Thu02/19/21 at 1306, For 3 days [facility] Medication administered onsite ondansetron (ZOFRAN) injection 4 mg [id number] 02/19/2021 01:02:4 8 PM EDT 4 mg Intravenous active 4 mg, In travenous, Every 8 hours PRN, Nausea, Starting on Thu02/19/21 at 1302, For 5 days [facility] Medication administered onsite albuterol (PROVENTIL HFA) inhaler 2 puff [id number] 02/19/2021 12:55:42 PM EDT 2 {puff} Inhalation active 2 pu ff, Inhalation, Every 4 hours PRN, Wheezing, Shortness of Breath, Starting on Thu02/19/21 at 1255, For 4 days
Shake the inhaler well before each spray.
[facility] Medication administered onsite Albuterol Sulfate HFA 108 (90 Base) MCG/ ACT Inhalation Aerosol Solution (PROVENTIL HFA) [id number] 01/08/2021 12:00:00 AM EDT 2 {puff} Inha lation active Inhale 2 puffs into the lung s every 4 (four) hours as needed [facility] 81 mg 12/27/2020 12:00:00 AM EDT tablet,delayed [...] DAILY DOSE = 80 UNITS SOLD: 01/08/2021 [facility] 100 unit/mL 12/15/2020 12:00:00 AM EDT solution 20 USE DIRECTED WITH PUMP, MAXIMUM DAILY DOSE = 80 UNITS USE DIRECTED WITH PUMP, MAXIMUM DAILY DOSE = 80 UNITS SOLD: 02/05/2021 [facility] 100 unit/mL 12/15/2020 12:00:00 AM EDT solution 20 USE DIRECTED WITH PUMP, MAXIMUM DAILY DOSE = 80 UNITS USE DIRECTED WITH PUMP, MAXIMUM DAILY DOSE = 80 UNITS SOLD: 03/19/2021 [facility] 100 unit/mL 12/15/2020 12:00:00 AM EDT solution 20 USE DIRECTED WITH PUMP, MAXIMUM DAILY DOSE = 80 UNITS USE DIRECTED WITH PUMP, MAXIMUM DAILY DOSE = 80 UNITS SOLD: 04/15/2021 [facility] 100 unit/mL 12/15/2020 12:00:00 AM EDT solution 20 USE DIRECTED WITH PUMP, MAXIMUM DAILY DOSE = 80 UNITS USE DIRECTED WITH PUMP, MAXIMUM DAILY DOSE = 80 UNITS SOLD: 06/10/2021 [facility] 100 unit/mL 12/15/2020 12:00:00 AM EDT solution 20 USE DIRECTED WITH PUMP, MAXIMUM DAILY DOSE = 80 UNITS USE DIRECTED WITH PUMP, MAXIMUM DAILY DOSE = 80 UNITS SOLD: 12/15/2020 [facility] 2.5-2.5 mcg/actuation 12/14/2020 12:00:00 AM EDT mist 4 INHALE TWO PUFFS BY MOUTH EVERY DAY INHALE TWO PUFFS BY MOUTH EVERY DAY SOLD: 12/14/2020 [facility] 2.5 mg 12/14/2020 12:00:00 AM EDT tablet 30 TAKE ONE TABLET BY MOUTH EVERY DAY TAKE ONE TABLET BY MOUTH EVERY DAY SOLD: 12/14/2020 [facility] 60 ACTUAT olodaterol 0.0025 MG/ACTUAT / [...] route BID [facility] ([facility]) 2 mg 11/14/2020 12:00:00 AM EST tablet [...] MOUTH ONCE DAILY SOLD: 11/09/2020 [facility] 25 mg 11/08/2020 12:00:00 AM EST tablet 30 TAKE ONE TABLET BY MOUTH ONCE DAILY TAKE ONE TABLET BY MOUTH ONCE DAILY SOLD: 02/05/2021 [facility] 40 mg 11/08/2020 12:00:00 AM EST capsule,delayed release (DR/EC) 30 TAKE ONE CAPSULE BY MOUTH EVERY DAY TAKE ONE CAPSULE BY MOUTH EVERY DAY SOLD: 02/05/2021 [facility] 40 mg 11/08/2020 [...] TABLET BY MOUTH EVERY DAY SOLD: 04/15/2021 [facility] 137 mcg 11/06/2020 12:00:00 AM EST tablet 30 TAKE ONE TABLET BY MOUTH EVERY DAY TAKE ONE TABLET BY MOUTH EVERY DAY SOLD: 12/10/2020 [facility] 137 mcg 11/06/2020 12:00:00 AM EST tablet 30 TAKE ONE TABLET BY MOUTH EVERY DAY TAKE ONE TABLET BY MOUTH EVERY DAY SOLD: 11/07/2020 [facility] 137 mcg 11/06/2020 12:00:00 AM EST tablet 30 TAKE ONE TABLET BY MOUTH EVERY DAY TAKE ONE TABLET BY MOUTH EVERY DAY SOLD: 01/08/2021 [facility] 12 % 11/02/2020 12:00:00 AM EST cream 280 APPLY TO FEET DAILY APPLY TO FEET DAILY SOLD: 11/06/2020 [facility] 2 mg 10/29/2020 12:00:00 AM EST tablet 15 TAKE ONE-HALF TABLET BY MOUTH EVERY DAY TAKE ONE-HALF TABLET BY MOUTH EVERY DAY SOLD: 10/29/2020 [facility] Estradiol 2 MG Oral Tablet estradiol 2 mg tablet estradiol 2 mg tablet 10/12/2020 12:00:00 AM EST completed take 0.5 tablet by oral route every day [facility] ([facility]) 20 mg 10/11/2020 12:00:00 AM EST tablet 8 TAKE ONE TABLET BY MOUTH TWO TIMES A DAY FOR 4 DAYS TAKE ONE TABLET BY MOUTH TWO TIMES A DAY FOR 4 DAYS SO LD: 10/11/2020 [facility] Doxycycline Monohydrate 100 MG Oral Tablet Doxycycline Monoh ydrate 10/11/2020 12:00:00 AM EST ORAL active [facility] ([facility]) Prednisone 20 MG Oral Tablet Prednisone 10/11/2020 12:00:00 AM EST ORAL active [facility] ([facility]) doxycycline hyclate 100 MG Oral Capsule DOXYCYCLINE HYCLATE 10/11/2020 12:00:00 AM EST capsule 20 TAKE ONE CAPSULE BY MOUTH TW ICE A DAY FOR 10 DAYS TAKE ONE CAPSULE BY MOUTH TWICE A DAY FOR 10 DAYS SOLD: 10/11/2020 [facility] 100 unit/mL 09/10/2020 12:00:00 AM EST solution 60 USE DIRECTED WITH PUMP, MAXIMUM DAILY DOSE = 80 UNITS USE DIRECTED WITH PUMP, MAXIMUM DAILY DOSE = 80 UNITS SOLD: 09/10/2020 [facility] 137 mcg 09/08/2020 12:00:00 AM EST [...] min before swallowing. [facility] ([facility]) Estradiol 2 MG Oral Tablet estradiol 2 mg tablet estradiol 2 mg tablet 07/13/2020 12:00:00 AM EDT completed take 1 tablet by po daily. Allow to dissolve under the tongue x 30 min before swallowing. [facility] ([facility]) 137 mcg 06/22/2020 12:00:00 AM EDT tablet [...] 06/20/2020 12:00:00 AM EDT ORAL completed [facility] ([facility] ) BLOOD SUGAR DIAGNOSTIC 06/11/2020 12:00:00 AM EDT [...] Capsule [Prometrium] [facility] ([facility]) 40 mg 05/15/2020 12:00:00 AM EDT capsule,delayed [...] every day [facility] ([facility]) tramadol hydrochloride 50 MG Oral Tablet tramadol 50 mg tablet TAKE ONE TABLET BY MOUTH EVERY 6 HOURS NEEDED FOR UP TO 2 DAYS MAXIMUM DAILY DOSE FOUR TABLETS tramadol 50 mg tablet TAKE ONE TABLET BY MOUTH EVERY 6 HOURS NEEDED FOR UP TO 2 DAYS MAXIMUM DAILY DOSE FOUR TABLETS completed tramadol hydrochloride 50 MG Oral Tablet [place] ([facility]) Prednisone 20 MG Oral Tablet prednisone 20 mg tablet TAKE ONE TABLET BY MOUTH TWO TIMES A DAY FOR 4 DAYS prednisone 20 mg tablet TAKE ONE TABLET BY MOUTH TWO TIMES A DAY FOR 4 DAYS completed prednisone 20 MG Oral Tablet [place] ([facility]) doxycycline hyclate 100 MG Oral Capsule doxycycline hyclate 100 mg capsule TAKE ONE CAPSULE BY MOUTH TWICE A DAY FOR 10 DAYS doxycycline hyclate 100 mg capsule TAKE ONE CAPSULE BY MOUTH TWICE A DAY FOR 10 DAYS completed doxycycline hyclate 100 MG Oral Capsule [facility]) Finasteride 5 MG Oral Tablet finasteride 5 mg tablet finasteride 5 mg tablet completed finasteride 5 MG Oral Tablet [place] ([facility]) doxycycline hyclate 100 MG Oral Capsule doxycycline hyclate 100 mg capsule TAKE ONE CAPSULE BY MOUTH TWICE A DAY FOR 10 DAYS doxycycline hyclate 100 mg capsule TAKE ONE CAPSULE BY MOUTH TWICE A DAY FOR 10 DAYS completed doxycycline hyclate 100 MG Oral Capsule [facility]) 1 ML Leuprolide Acetate 3.75 MG/ML Prefi lled Syringe [Lupron] Lupron Depot 3.75 mg intramuscular syringe kit INJECT 3.75MG MONTHLY Lupron Depot 3.75 mg intramuscular syringe kit INJECT 3.75MG MONTHLY completed 1 ML leuprolide acetate 3.75 MG/ML Prefilled Syringe [Lupron] [place] ([facility]) Finasteride 5 MG Oral Tablet finasteride 5 mg tablet finasteride 5 mg tablet completed finasteride 5 MG Oral Tablet [place] ([facility]) Levothyroxine Sodium 0.025 MG Oral Table t [Levo-T] Levo-T 25 mcg tablet Take 1 tablet every day by oral route. Levo-T 25 mcg tablet Take 1 tablet every day by oral route. 1 completed le vothyroxine sodium 0.025 MG Oral Tablet [Levo-T] [place] ([facility]) Finasteride 5 MG Oral Tablet finasteride 5 mg tablet finasteride 5 mg tablet completed finasteride 5 MG Oral Tablet [place] ([facility]) Clarithromycin 500 MG Oral Tablet clarit hromycin 500 mg tablet TAKE ONE TABLET BY MOUTH EVERY 12 HOURS FOR 10 DAYS clarithromycin 500 mg tablet TAKE ONE TA BLET BY MOUTH EVERY 12 HOURS FOR 10 DAYS c ompleted clarithromycin 500 MG Oral Tablet [place] ([facility]) doxycycline hyclate 100 MG Oral Capsule doxycycline hyclate 100 mg capsule TAKE ONE CAPSULE BY MOUTH TWICE A DAY FOR 10 DAYS doxycycline hyclate 100 mg capsule TAKE ONE CAPSULE BY MOUTH TWICE A DAY FOR 10 DAYS completed doxycycline hyclate 100 MG Oral Capsule [place] ([facility]) Progesterone 100 MG Oral Capsule progesterone microniz ed 100 mg capsule progesterone micronized 100 mg capsule completed progesterone 100 MG Oral Capsule [place] ([facility]) ammonium lactate 120 MG/ML Topical Cream ammonium lactate 12 % topical cream APPLY TO FEET DAILY ammonium lactate 12 % topical cream APPLY TO FEET DAILY completed ammonium lactate 120 M G/ML Topical Cream [place] ([facility]) Clarithromycin 500 MG Oral Tablet clarit hromycin 500 mg tablet TAKE ONE TABLET BY MOUTH EVERY 12 HOURS FOR 10 DAYS clarithromycin 500 mg tablet TAKE ONE TA BLET BY MOUTH EVERY 12 HOURS FOR 10 DAYS c ompleted clarithromycin 500 MG Oral Tablet [place] ([facility]) Prednisone 20 MG Oral Tablet prednisone 20 mg tablet TAKE ONE TABLET BY MOUTH TWO TIMES A DAY FOR 4 DAYS prednisone 20 mg tablet TAKE ONE TABLET BY MOUTH TWO TIMES A DAY FOR 4 DAYS completed pred[facility]one 20 MG [facility] Progesterone 100 MG Oral Capsule progesterone microniz ed 100 mg capsule progesterone micronized 100 mg capsule 2.00 {capsule} ORAL completed take 2 capsule by oral route every day for 12 days in the evening sequentially per 28 day cycle [facility] ([facility]) Clarithromycin 500 MG Oral Tablet clarit hromycin 500 mg tablet TAKE ONE TABLET BY MOUTH EVERY 12 HOURS FOR 10 DAYS clarithromycin 500 mg tablet TAKE ONE TA BLET BY MOUTH EVERY 12 HOURS FOR 10 DAYS c ompleted clarithromycin 500 MG Oral Tablet [place] ([facility]) Azithromycin 250 MG Oral Tablet azithrom ycin 250 mg tablet TAKE TWO TABLETS BY MOUTH ONCE DAILY FOR 1 DAY THEN TAKE ONE TABLET BY MOUTH ONCE DAILY FOR 4 DAYS azithromycin 250 mg tablet TAKE TWO TABLETS BY MOUTH ONCE DAILY FOR 1 DAY THEN TAKE ONE TABLET BY MOUTH ONCE DAILY FOR 4 DAYS completed azithromycin 250 MG Oral Tablet [place] ([facility]) ammonium lactate 120 MG/ML Topical Cream ammonium lactate 12 % topical cream APPLY TO FEET DAILY ammonium lactate 12 % topical cream APPLY TO FEET DAILY completed ammonium lactate 120 M G/ML Topical Cream [place] ([facility]) liothyronine sodium 0.025 MG Oral Tablet liothyronine 25 mcg tablet liothyronine 25 mcg tablet completed liothyronine sodium 0.025 MG Oral Tablet [facility] ([facility]) Levothyroxine Sodium 0.025 MG Oral Table t [Levo-T] Levo-T 25 mcg tablet Take 1 tablet every day by oral route. Levo-T 25 mcg tablet Take 1 tablet every day by oral route. 1 completed le vothyroxine sodium 0.025 MG Oral Tablet [Levo-T] [facility] ([facility]) Estradiol 2 MG Oral Tablet estradiol 2 mg tablet estradiol 2 mg tab let 1 {tablet} ORAL completed take 1 tablet by oral route every day [facility] ([facility]) Progesterone 100 MG Oral Capsule progesterone microniz ed 100 mg capsule progesterone micronized 100 mg capsule completed progesterone 100 MG Oral Capsule [place] ([facility]) Finasteride 5 MG Oral Tablet finasteride 5 mg tablet finasteride 5 mg tablet 0.5 {tablet} ORAL completed take 0.5 tablet by oral route every day [facility] Levothyroxine Sodium 0.025 MG Oral Table t [Levo-T] Levo-T 25 mcg tablet Take 1 tablet every day by oral route. Levo-T 25 mcg tablet Take 1 tablet every day by oral route. 1 completed le vothyroxine sodium 0.025 MG Oral Tablet [Levo-T] [place] ([facility]) OneTouch Ultra Blue Test Strip USE DIRECTED FOUR TIMES A DAY [id number] completed OneTouch Ultra Blue Test Strip [place] ([facility]) olodaterol 0.0025 MG/ACTUAT / tiotropium 0.0025 MG/ACTUAT Metered Dose Inhaler Stiolto Respimat 2.5 mcg-2.5 mcg/actuation solution for inhalation INHALE TWO PUFFS BY MOUTH EVERY DAY Stiolto Respimat 2.5 mcg-2.5 mcg/actuati on solution for inhalation INHALE TWO PUFFS BY MOUTH EVERY DAY completed olodaterol 0.0025 MG/ACTUAT / tiotropium 0.0025 MG/ACTUAT Inhalation [place] ([facility]) Prednisone 20 MG Oral Tablet prednisone 20 mg tablet TAKE ONE TABLET BY MOUTH TWO TIMES A DAY FOR 4 DAYS prednisone 20 mg tablet TAKE ONE TABLET BY MOUTH TWO TIMES A DAY FOR 4 DAYS completed prednisone 20 MG Oral Tablet [place] ([facility]) Prednisone 20 MG Oral Tablet prednisone 20 mg tablet TAKE ONE TABLET BY MOUTH TWO TIMES A DAY FOR 4 DAYS prednisone 20 mg tablet TAKE ONE TABLET BY MOUTH TWO TIMES A DAY FOR 4 DAYS completed prednisone 20 MG Oral Tablet [place] ([facility]) tramadol hydrochloride 50 MG Oral Tablet tramadol 50 mg tablet TAKE ONE TABLET BY MOUTH EVERY 6 HOURS NEEDED FOR UP TO 2 DAYS MAXIMUM DAILY DOSE FOUR TABLETS tramadol 50 mg tablet TAKE ONE TABLET BY MOUTH EVERY 6 HOURS NEEDED FOR UP TO 2 DAYS MAXIMUM DAILY DOSE FOUR TABLETS completed tramadol hydrochloride 50 MG Oral Tablet [place] ([facility]) Prednisone 20 MG Oral Tablet prednisone 20 mg tablet TAKE ONE TABLET BY MOUTH TWO TIMES A DAY FOR 4 DAYS prednisone 20 mg tablet TAKE ONE TABLET BY MOUTH TWO TIMES A DAY FOR 4 DAYS completed prednisone 20 MG Oral Tablet [place] ([facility]) Lisinopril 2.5 MG Oral Tablet lisinopril 2.5 mg tablet TAKE ONE TABLET BY MOUTH ONCE DAILY lisinopril 2.5 mg tablet TAKE ONE TABLET BY MOUTH ONCE DAILY completed lisinopril 2.5 MG Oral Ta blet [facility] ([facility]) Finasteride 5 MG Oral Tablet finasteride 5 mg tablet finasteride 5 mg tablet completed finasteride 5 MG Oral Tablet [facility] ([facility]) Levothyroxine Sodium 0.025 MG Oral Table t [Levo-T] Levo-T 25 mcg tablet Take 1 tablet every day by oral route. Levo-T 25 mcg tablet Take 1 tablet every day by oral route. 1 completed le vothyroxine sodium 0.025 MG Oral Tablet [Levo-T] [facility] ([facility]) Prednisone 20 MG Oral Tablet prednisone 20 mg tablet TAKE ONE TABLET BY MOUTH TWO TIMES A DAY FOR 4 DAYS prednisone 20 mg tablet TAKE ONE TABLET BY MOUTH TWO TIMES A DAY FOR 4 DAYS completed prednisone 20 MG Oral Tablet [facility] ([facility]) Clarithromycin 500 MG Oral Tablet clarit hromycin 500 mg tablet TAKE ONE TABLET BY MOUTH EVERY 12 HOURS FOR 10 DAYS clarithromycin 500 mg tablet TAKE ONE TA BLET BY MOUTH EVERY 12 HOURS FOR 10 DAYS c ompleted clarithromycin 500 MG Oral Tablet [facility] ([facility]) Finasteride 5 MG Oral Tablet finasteride 5 mg tablet finasteride 5 mg tablet completed finasteride 5 MG Oral Tablet [facility] ([facility]) Docusate Sodium 100 MG Oral Capsule docu sate sodium 100 mg capsule TAKE ONE CAPSULE BY MOUTH TWICE A DAY FOR 10 DAYS docusate sodium 100 mg capsule TAKE ONE CAPSULE BY MOUTH TWICE A DAY FOR 10 DAYS completed docusate sodium 100 MG Oral Capsule [facility] ([facility]) doxycycline hyclate 100 MG Oral Capsule doxycycline hyclate 100 mg capsule TAKE ONE CAPSULE BY MOUTH TWICE A DAY FOR 10 DAYS doxycycline hyclate 100 mg capsule TAKE ONE CAPSULE BY MOUTH TWICE A DAY FOR 10 DAYS completed doxycycline hyclate 100 MG Oral Capsule [facility] ([facility]) Prednisone 20 MG Oral Tablet prednisone 20 mg tablet TAKE ONE TABLET BY MOUTH TWO TIMES A DAY FOR 4 DAYS prednisone 20 mg tablet TAKE ONE TABLET BY MOUTH TWO TIMES A DAY FOR 4 DAYS completed prednisone 20 MG Oral Tablet [place] ([facility]) liothyronine sodium 0.025 MG Oral Tablet liothyronine 25 mcg tablet liothyronine 25 mcg tablet completed liothyronine sodium 0.025 MG Oral Tablet [facility] ([facility]) Progesterone 100 MG Oral Capsule progesterone microniz ed 100 mg capsule progesterone micronized 100 mg capsule completed progesterone 100 MG Oral Capsule [facility] ([facility]) Progesterone 100 MG Oral Capsule progesterone microniz ed 100 mg capsule progesterone micronized 100 mg capsule completed progesterone 100 MG Oral Capsule [facility] ([facility]) Clarithromycin 500 MG Oral Tablet clarit hromycin 500 mg tablet TAKE ONE TABLET BY MOUTH EVERY 12 HOURS FOR 10 DAYS clarithromycin 500 mg tablet TAKE ONE TA BLET BY MOUTH EVERY 12 HOURS FOR 10 DAYS c ompleted clarithromycin 500 MG Oral Tablet [facility] ([facility]) tramadol hydrochloride 50 MG Oral Tablet tramadol 50 mg tablet TAKE ONE TABLET BY MOUTH EVERY 6 HOURS NEEDED FOR UP TO 2 DAYS MAXIMUM DAILY DOSE FOUR TABLETS tramadol 50 mg tablet TAKE ONE TABLET BY MOUTH EVERY 6 HOURS NEEDED FOR UP TO 2 DAYS MAXIMUM DAILY DOSE FOUR TABLETS completed tramadol hydrochloride 50 MG Oral Tablet [place] ([facility]) liothyronine sodium 0.025 MG Oral Tablet liothyronine 25 mcg tablet liothyronine 25 mcg tablet completed liothyronine sodium 0.025 MG Oral Tablet [facility] ([facility]) Azithromycin 250 MG Oral Tablet azithrom ycin 250 mg tablet TAKE TWO TABLETS BY MOUTH ONCE DAILY FOR 1 DAY THEN TAKE ONE TABLET BY MOUTH ONCE DAILY FOR 4 DAYS azithromycin 250 mg tablet TAKE TWO TABLETS BY MOUTH ONCE DAILY FOR 1 DAY THEN TAKE ONE TABLET BY MOUTH ONCE DAILY FOR 4 DAYS completed azithromycin 250 MG Oral Tablet [facility] ([facility]) 1 ML Leuprolide Acetate 3.75 MG/ML Prefi lled Syringe [Lupron] Lupron Depot 3.75 mg intramuscular syringe kit INJECT 3.75MG MONTHLY Lupron Depot 3.75 mg intramuscular syringe kit INJECT 3.75MG MONTHLY completed 1 ML leuprolide acetate 3.75 MG/ML Prefilled Syringe [Lupron] [facility] ([facility]) Levothyroxine Sodium 0.025 MG Oral Table t [Levo-T] Levo-T 25 mcg tablet Take 1 tablet every day by oral route. Levo-T 25 mcg tablet Take 1 tablet every day by oral route. 1 completed le vothyroxine sodium 0.025 MG Oral Tablet [Levo-T] [facility] ([facility]) liothyronine sodium 0.025 MG Oral Tablet liothyronine 25 mcg tablet liothyronine 25 mcg tablet completed liothyronine sodium 0.025 MG Oral Tablet [facility] ([facility]) Finasteride 5 MG Oral Tablet finasteride 5 mg tablet finasteride 5 mg tablet completed finasteride 5 MG Oral Tablet [facility] ([facility]) liothyronine sodium 0.025 MG Oral Tablet liothyronine 25 mcg tablet liothyronine 25 mcg tablet completed liothyronine sodium 0.025 MG Oral Tablet [facility] ([facility]) Docusate Sodium 100 MG Oral Capsule docu sate sodium 100 mg capsule TAKE ONE CAPSULE BY MOUTH TWICE A DAY FOR 10 DAYS docusate sodium 100 mg capsule TAKE ONE CAPSULE BY MOUTH TWICE A DAY FOR 10 DAYS completed docusate sodium 100 MG Oral Capsule [facility] ([facility]) doxycycline hyclate 100 MG Oral Capsule doxycycline hyclate 100 mg capsule TAKE ONE CAPSULE BY MOUTH TWICE A DAY FOR 10 DAYS doxycycline hyclate 100 mg capsule TAKE ONE CAPSULE BY MOUTH TWICE A DAY FOR 10 DAYS completed doxycycline hyclate 100 MG Oral Capsule [place] ([facility]) OneTouch Ultra Blue Test Strip USE DIRECTED FOUR TIMES A DAY [id number] completed OneTouch Ultra Blue Test Strip [place] ([facility]) Levothyroxine Sodium 0.025 MG Oral Table t [Levo-T] Levo-T 25 mcg tablet Take 1 tablet every day by oral route. Levo-T 25 mcg tablet Take 1 tablet every day by oral route. 1 completed le vothyroxine sodium 0.025 MG Oral Tablet [Levo-T] [facility] ([facility]) doxycycline hyclate 100 MG Oral Capsule doxycycline hyclate 100 mg capsule TAKE ONE CAPSULE BY MOUTH TWICE A DAY FOR 10 DAYS doxycycline hyclate 100 mg capsule TAKE ONE CAPSULE BY MOUTH TWICE A DAY FOR 10 DAYS completed doxycycline hyclate 100 MG Oral Capsule [facility] ([facility]) Progesterone 100 MG Oral Capsule progesterone microniz ed 100 mg capsule progesterone micronized 100 mg capsule completed progesterone 100 MG Oral Capsule [facility] ([facility]) doxycycline hyclate 100 MG Oral Capsule doxycycline hyclate 100 mg capsule TAKE ONE CAPSULE BY MOUTH TWICE A DAY FOR 10 DAYS doxycycline hyclate 100 mg capsule TAKE ONE CAPSULE BY MOUTH TWICE A DAY FOR 10 DAYS completed doxycycline hyclate 100 MG Oral Capsule [facility] ([facility]) liothyronine sodium 0.025 MG Oral Tablet liothyronine 25 mcg tablet liothyronine 25 mcg tablet completed liothyronine sodium 0.025 MG Oral Tablet [facility] ([facility]) Levothyroxine Sodium 0.025 MG Oral Table t [Levo-T] Levo-T 25 mcg tablet Take 1 tablet every day by oral route. Levo-T 25 mcg tablet Take 1 tablet every day by oral route. 1 completed le vothyroxine sodium 0.025 MG Oral Tablet [Levo-T] [facility] ([facility]) Metoprolol Tartrate 25 MG Oral Tablet me toprolol tartrate 25 mg tablet TAKE ONE TABLET BY MOUTH ONCE DAILY metoprolol tartrate 25 mg tablet TAKE ON E TABLET BY MOUTH ONCE DAILY completed metoprolol tartrate 25 MG Oral Tablet [facility] ([facility]) liothyronine sodium 0.025 MG Oral Tablet liothyronine 25 mcg tablet liothyronine 25 mcg tablet completed liothyronine sodium 0.025 MG Oral Tablet [facility] ([facility]) Finasteride 5 MG Oral Tablet finasteride 5 mg tablet finasteride 5 mg tablet completed finasteride 5 MG Oral Tablet [facility] ([facility]) Metoprolol Tartrate 25 MG Oral Tablet me toprolol tartrate 25 mg tablet TAKE ONE TABLET BY MOUTH ONCE DAILY metoprolol tartrate 25 mg tablet TAKE ON E TABLET BY MOUTH ONCE DAILY completed metoprolol tartrate 25 MG Oral Tablet [facility] ([facility]) Docusate Sodium 100 MG Oral Capsule docu sate sodium 100 mg capsule TAKE ONE CAPSULE BY MOUTH TWICE A DAY FOR 10 DAYS docusate sodium 100 mg capsule TAKE ONE CAPSULE BY MOUTH TWICE A DAY FOR 10 DAYS completed docusate sodium 100 MG Oral Capsule [facility] ([facility]) Insurance Providers Payer name Policy type / Coverage type Policy ID Covered alliance party ID Covered alliance party's relationship to herrera Policy Herrera Plan Information Medicaid S [id number] S [id number] Managed Care - Community Plan [facility] P [id number] S [id number] Managed Care - [facility] P [id number] S [id number] Managed Care - [facility] O [id number] S [id number] [facility] Community Plan Commercial [id number] Self [facility] Community Plan Commercial [id number] Self [id number] Managed Care - Community Plan [employer] P [id number] S [id number] Medicaid S [id number] Managed Care - Community Plan [employer] P [id number] S [id number] Managed Care - Community Plan [employer] P [id number] S [id number] Medicaid S [id number] S [id number] UNHC COMMUNITY PLAN MCDHMO [id number] SP [id number] [facility] Community Plan Commercial [id number] Self Medicaid [place] Medicaid [id number] Self [employer] Hmo Commercial [id number] Self [id number] Managed Care - [facility] P [id number] S [id number] [employer] Hmo Commercial [id number] Self [id number] Medicaid S [id number] S [id number] UN COMMUNITY PLAN MCDHMO [id number] SP [id number] Managed Care - [employer] P [id number] S [id number] Medicaid S [id number] S [id number] Managed Care - [employer] P [id number] S [id number] [facility] MMC [id number] self [id number] [facility] I [id number] Self [id number] [facility] I [id number] Self [id number] Medicaid S [id number] S [id number] Managed Care - [employer] P [id number] S [id number] Medicaid S [id number] S [id number] Managed Care - [employer] P [id number] S [id number] [facility] Health Maintenance Organization (HMO) [id number] Self [id number] [place] Medig[place] Part B [id number] Self [id number] [place] [id number] Self [id number] [place] Med[place] [id number] Self [id number] [facility] Community Plan Medigap Part B [id number] Self [id number] [facility] Medicaid Medicaid [id number] Self [id number] [facility] Community Plan Medigap Part B [id number] Self [place] Med[place] [id number] Self [id number] MEDICAID [id number] SP [id number] EMEDNY [id number] SP [id number] Self Pay P [id number] S [id number] Self Pay P UNAVAILABLE S UNAVAILA BLE [facility] COMMUNITY PLAN [facility] [id number] SP [id number] Managed Care - [facility] Community Plan P [id number] S [id number] [facility] O [id number] S [id number] Medicaid S UNAVAILABLE S UNAVAILA BLE [id number] [place] Part [place] [id number] Self [id number] [place] Med[place] Part [place] [id number] Self [id number] [place] [id number] Self [id number] [place] [id number] Self [id number] [place] B [id number] Self [id number] MEDICAID M [id number] S [id number] [facility] Health Maintenance Organization (HMO) [id number] Self [id number] [facility] COMMUNITY PLAN [facility] [id number] SP [id number] Medicaid [place] Medigap Part B [id number] [facility] Health Maintenance Organization (HMO) [id number] Self [id number] Problems, Conditions, and Diagnoses Code Display Name Description Problem Type Effective Dates Data Source(s) F64.9 Gender identity disorder, unspecified Ge nder identity disorder, unspecified Diagnosis [facility] GENDER DYSPORIA Diagnosis 02/19/2021 07:1 8:00 AM [facility] pretest pretest Diagnosis 02/13/2021 01:28:22 PM ED [facility] [id number] History of SARS-CoV-2 History of SARS-CoV-2 Prob louise 07/08/2021 12:00:00 AM EDT [facility] ([facility]) [id number] History of orchiectomy History of Orchiectomy Problem 03/05/2021 12:00:00 AM EDT [facility] ([facility]) [id number] History of orchiectomy History of Orchiectomy Problem 03/05/2021 12:00:00 AM EDT [facility] ([facility]) [id number] History of orchiectomy History of Orchiectomy Problem 03/05/2021 12:00:00 AM EDT [place] ([facility]) [id number] Gender dysphoria Gender Dysphoria Problem 02/19/2021 12 :00:00 AM EDT [place] ([facility]) [id number] Essential hypertension Essential Hypertension Problem 01/21/2021 12:00:00 AM EDT [facility] ([facility]) [id number] Essential hypertension Essential Hypertension Problem 01/21/2021 12:00:00 AM EDT [facility] ([facility]) [id number] Essential hypertension Essential Hypertension Problem 01/21/2021 12:00:00 AM EDT [facility] ([facility]) [id number] Essential hypertension Essential Hypertension Problem 01/21/2021 12:00:00 AM EDT [facility] ([facility]) [id number] Essential hypertension Essential Hypertension Problem 01/21/2021 12:00:00 AM EDT [place] ([facility]) [id number] Samson's esophagus Samson's esophagus Problem 0 10/23/2020 12:00:00 AM EST [facility] ([facility]) [id number] Type 2 diabetes mellitus Type 2 diabetes mellitus Prob louise 07/13/2020 12:00:00 AM [facility] [id number] Disorder of thyroid gland Disorder of thyroid gland Pr oblem 07/13/2020 12:00:00 AM EDT [facility]) [id number] Hyperlipidemia Hyperlipidemia Problem 07/13/2020 12:00: 00 AM EDT [facility] ([facility]) [id number] Type 1 diabetes mellitus without complic ation Type 1 Diabetes Mellitus without Complication Problem 07/05/2020 05:41:32 PM EDT [facility]) [id number] Type 1 diabetes mellitus without complic ation Type 1 Diabetes Mellitus without Complication Problem 07/05/2020 05:41:32 PM EDT [place] ([facility]) [id number] Type 1 diabetes mellitus without complic ation Type 1 Diabetes Mellitus without Complication Problem 07/05/2020 05:41:32 PM EDT [place] ([facility]) [id number] Type 1 diabetes mellitus without complic ation Type 1 Diabetes Mellitus without Complication Problem 07/05/2020 05:41:32 PM EDT [facility] ([facility]) [id number] Type 1 diabetes mellitus without complic ation Type 1 Diabetes Mellitus without Complication Problem 07/05/2020 05:41:32 PM EDT [facility] ([facility]) [id number] Acute ST segment elevation myocardial in farction Acute ST Segment Elevation Myocardial Infarction Problem 07/05/2020 05:41:32 PM EDT A [place] ([facility]) [id number] Type 1 diabetes mellitus without complic ation Type 1 Diabetes Mellitus without Complication Problem 07/05/2020 05:41:32 PM EDT [facility] ([facility]) [id number] Acute ST segment elevation myocardial in farction Acute ST Segment Elevation Myocardial Infarction Problem 07/05/2020 05:41:32 PM EDT [facility] [place] ([facility]) [id number] Type 1 diabetes mellitus without complic ation Type 1 Diabetes Mellitus without Complication Problem 07/05/2020 05:41:32 PM EDT [facility] ([facility]) [id number] Acute ST segment elevation myocardial in farction Acute ST Segment Elevation Myocardial Infarction Problem 07/05/2020 05:41:32 PM EDT A [facility] ([facility]) [id number] Type 1 diabetes mellitus without complic ation Type 1 Diabetes Mellitus without Complication Problem 07/05/2020 05:41:32 PM EDT [facility] ([facility]) [id number] Acute ST segment elevation myocardial in farction Acute ST Segment Elevation Myocardial Infarction Problem 07/05/2020 05:41:32 PM EDT A [place] ([facility]) [id number] Type 1 diabetes mellitus without complic ation Type 1 Diabetes Mellitus without Complication Problem 07/05/2020 05:41:32 PM EDT [facility] ([facility]) [id number] Acute ST segment elevation myocardial in farction Acute ST Segment Elevation Myocardial Infarction Problem 07/05/2020 05:41:32 PM EDT A [place] ([facility]) [id number] Clinical finding Clinical Finding Problem 07/05/2020 05 :41:32 PM EDT [facility] ([facility]) [id number] Acute ST segment elevation myocardial in farction Acute ST Segment Elevation Myocardial Infarction Problem 07/05/2020 05:41:32 PM EDT A [place] ([facility]) [id number] Impotence Impotence Problem 07/14/2019 12:0 0:00 AM EDT - 01/21/2021 12:00:00 AM EDT [facility] ([facility]) [id number] Impotence Impotence Problem 07/14/2019 12:0 0:00 AM EDT - 01/21/2021 12:00:00 AM EDT [facility] ([facility]) [id number] Impotence Impotence Problem 07/14/2019 12:0 0:00 AM EDT - 01/21/2021 12:00:00 AM EDT [facility] ([facility]) [id number] Impotence Impotence Problem 07/14/2019 12:0 0:00 AM EDT - 01/21/2021 12:00:00 AM EDT [facility] ([facility]) [id number] Impotence Impotence Problem 07/14/2019 12:0 0:00 AM EDT - 01/21/2021 12:00:00 AM EDT [facility] ([facility]) [id number] 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 Due to Periodontal Disease Problem 07/22/2018 12:00 :00 AM EDT - 12/11/2020 12:00:00 AM EDT [facility] ([facility]) [id number] 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 Due to Periodontal Disease Problem 07/22/2018 12:00 :00 AM EDT - 12/11/2020 12:00:00 AM EDT [facility] ([facility]) [id number] 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 Due to Periodontal Disease Problem 07/22/2018 12:00 :00 AM EDT - 12/11/2020 12:00:00 AM EDT [facility] ([facility]) [id number] 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 Due to Periodontal Disease Problem 07/22/2018 12:00 :00 AM EDT - 12/11/2020 12:00:00 AM EDT [facility] ([facility]) [id number] 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 Due to Periodontal Disease Problem 07/22/2018 12:00 :00 AM EDT - 12/11/2020 12:00:00 AM EDT [facility] ([facility]) [id number] 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 Due to Periodontal Disease Problem 07/22/2018 12:00 :00 AM EDT - 12/11/2020 12:00:00 AM EDT [facility] ([facility]) [id number] 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 Due to Periodontal Disease Problem 07/22/2018 12:00 :00 AM EDT - 12/11/2020 12:00:00 AM EDT [place] ([facility]) [id number] Coronary arteriosclerosis Coronary Arteriosclerosis Pr oblem 12/02/2016 12:00:00 AM EDT - 12/11/2020 12:00:00 AM EDT [facility] ([facility]) [id number] Coronary arteriosclerosis Coronary Arteriosclerosis Pr oblem 12/02/2016 12:00:00 AM EDT - 12/11/2020 12:00:00 AM EDT [facility] ([facility]) [id number] Coronary arteriosclerosis Coronary Arteriosclerosis Pr oblem 12/02/2016 12:00:00 AM EDT - 12/11/2020 12:00:00 AM EDT [facility] ([facility]) [id number] Coronary arteriosclerosis Coronary Arteriosclerosis Pr oblem 12/02/2016 12:00:00 AM EDT - 12/11/2020 12:00:00 AM EDT [facility] ([facility]) [id number] Coronary arteriosclerosis Coronary Arteriosclerosis Pr oblem 12/02/2016 12:00:00 AM EDT - 12/11/2020 12:00:00 AM EDT [facility] ([facility]) [id number] Coronary arteriosclerosis Coronary Arteriosclerosis Pr oblem 12/02/2016 12:00:00 AM EDT - 12/11/2020 12:00:00 AM EDT [place] ([facility]) [id number] Coronary arteriosclerosis Coronary Arteriosclerosis Pr oblem 12/02/2016 12:00:00 AM EDT - 12/11/2020 12:00:00 AM EDT [place] ([facility]) [id number] Finding of esophagus Finding of Esophagus Problem 05/28/2016 12:00:00 AM EDT - 12/11/2020 12:00:00 AM EDT [place] ([facility]) [id number] Finding of esophagus Finding of Esophagus Problem 05/28/2016 12:00:00 AM EDT - 12/11/2020 12:00:00 AM EDT [place] ([facility]) [id number] Finding of esophagus Finding of Esophagus Problem 05/28/2016 12:00:00 AM EDT - 12/11/2020 12:00:00 AM EDT [place] ([facility]) [id number] Finding of esophagus Finding of Esophagus Problem 05/28/2016 12:00:00 AM EDT - 12/11/2020 12:00:00 AM EDT [place] ([facility]) [id number] Finding of esophagus Finding of Esophagus Problem 05/28/2016 12:00:00 AM EDT - 12/11/2020 12:00:00 AM EDT [place] ([facility]) [id number] Finding of esophagus Finding of Esophagus Problem 05/28/2016 12:00:00 AM EDT - 12/11/2020 12:00:00 AM EDT [place] ([facility]) [id number] Finding of esophagus Finding of Esophagus Problem 05/28/2016 12:00:00 AM EDT - 12/11/2020 12:00:00 AM EDT [place] ([facility]) [id number] Clinical finding Clinical Finding Problem 014 12:00:00 AM EDT - 07/11/2020 12:00:00 AM EDT [place] ([facility]) [id number] Clinical finding Clinical Finding Problem 014 12:00:00 AM EDT - 07/11/2020 12:00:00 AM EDT [place] ([facility]) [id number] Clinical finding Clinical Finding Problem 014 12:00:00 AM EDT - 07/11/2020 12:00:00 AM EDT [place] ([facility]) [id number] Clinical finding Clinical Finding Problem 014 12:00:00 AM EDT - 07/11/2020 12:00:00 AM EDT [place] ([facility]) [id number] Clinical finding Clinical Finding Problem 014 12:00:00 AM EDT - 07/11/2020 12:00:00 AM EDT [place] ([facility]) [id number] Clinical finding Clinical Finding Problem 014 12:00:00 AM EDT - 07/11/2020 12:00:00 AM EDT [place] ([facility]) [id number] Clinical finding Clinical Finding Problem 014 12:00:00 AM EDT - 07/11/2020 12:00:00 AM EDT [place] ([facility]) [id number] Clinical finding Clinical Finding Problem 014 12:00:00 AM EDT - 07/11/2020 12:00:00 AM EDT [facility] ([facility]) [id number] Clinical finding Clinical Finding Problem 014 12:00:00 AM EDT - 07/11/2020 12:00:00 AM EDT [place] ([facility]) [id number] Clinical finding Clinical Finding Problem 12/11/2020 12 :00:00 AM EDT [place] ([facility]) [id number] Acute ST segment elevation myocardial in farction Acute ST Segment Elevation Myocardial Infarction Problem 02/12/2021 12:00:00 AM EDT A [place] ([facility]) [id number] Clinical finding Clinical Finding Problem 12/11/2020 12 :00:00 AM EDT [place] ([facility]) [id number] Acute ST segment elevation myocardial in farction Acute ST Segment Elevation Myocardial Infarction Problem 02/12/2021 12:00:00 AM EDT A [place] ([facility]) [id number] Clinical finding Clinical Finding Problem 12/11/2020 12 :00:00 AM EDT [place] ([facility]) [id number] Acute ST segment elevation myocardial in farction Acute ST Segment Elevation Myocardial Infarction Problem 02/12/2021 12:00:00 AM EDT Loli ANNE ([facility]) [id number] Clinical finding Clinical Finding Problem 12/11/2020 12 :00:00 AM EDT [place] ([facility]) [id number] Acute ST segment elevation myocardial in farction Acute ST Segment Elevation Myocardial Infarction Problem 02/12/2021 12:00:00 AM EDT A THENLoli ([facility]) [id number] Clinical finding Clinical Finding Problem 12/11/2020 12 :00:00 AM EDT [place] ([facility]) [id number] Clinical finding Clinical Finding Problem 12/11/2020 12 :00:00 AM EDT [place] ([facility]) [id number] Clinical finding Clinical Finding Problem 12/11/2020 12 :00:00 AM EDT [place] ([facility]) Surgeries/Procedures Procedure Description Date Indications Data Source(s) Diabetic Foot Exam 07/22/2021 12:00:00 AM EDT [facility] ([facility] ) OFFICE OUTPATIENT VISIT 25 MINUTES 07/22/2021 12:00:00 AM EDT [facility] ([facility]) Spirometry 05/29/2021 12:00:00 AM EDT Daphnie ORDOÑEZ ([facility], ) OFFICE OUTPATIENT VISIT 25 MINUTES 05/29/2021 12:00:00 AM EDT [facility] ([facility], ) DEMO&/EVAL OF PT UTILIZ AERSL GEN/NEB/INHLR/IPPB 04/17 12:00:00 AM EDT [facility] ([facility], ) OFFICE OUTPATIENT VISIT 25 MINUTES 04/17/2021 12:00:00 AM EDT [facility] ([facility], ) EST PT TG EXP PROB FOCUSED 04/12/2021 12 :00:00 AM EDT - 04/12/2021 12:00:00 AM EDT Ricky ([facility]) OFFICE OUTPATIENT NEW 45 MINUTES 04/03/2021 12:00:00 A M EDT LAURA ([facility], ) Amb Glucose Monitoring Interpretation And Report 03/21 12:00:00 AM EDT [facility] ([facility]) OFFICE OUTPATIENT VISIT 25 MINUTES 03/21/2021 12:00:00 AM EDT [facility] ([facility]) POCT GLUCOSE, DOCKED <td>POCT GLUCOSE, DOCKED</td ><td>Routine</td><td>02/19/2021 11:58 PM EDT</td><td></td><td> </td> 02/19/2021 11:58:00 PM [facility] GLUCOSE QUANTITATIVE BLOOD XCPT REAGENT STRIP <td>POCT GLUCOSE, DOCKED</td><td>Routine</td><td>02/19/2021 1:34 PM EDT</td><td></td><td> </td> 02/19/2021 01:34:00 PM [facility] ORCHIECTOMY, SIMPLE, W/WO PROSTHESIS, SCROTAL/INGUINAL APPROACH <td>ORCHIECTOMY, SIMPLE, W/WO PROSTHESIS, SCROTAL/INGUINAL APPROACH</td><td></td><td>02/19/2021 10:37 AM EDT</td><td> Gender dysphoria</td><td></td> 02/19/2021 10:37:00 AM EDT - 02/19/2021 01:05:00 PM EDT [facility] Gender dysphoria GLUCOSE QUANTITATIVE BLOOD XCPT REAGENT STRIP <td>POCT GLUCOSE, DOCKED</td><td>Routine</td><td>02/19/2021 8:00 AM EDT</td><td></td><td> </td> 02/19/2021 08:00:00 AM [facility] CARDIAC REPORT <td>CARDIAC REPORT</td><td>< /td><td>02/15/2021 4:23 PM EDT</td><td></td><td></td> 02/15/2021 04:23:03 PM EDT [facility] CARDIAC REPORT <td>CARDIAC REPORT</td><td>< /td><td>02/15/2021 4:22 PM EDT</td><td></td><td></td> 02/15/2021 04:22:25 PM EDT [facility] CARDIAC REPORT <td>CARDIAC REPORT</td><td>< /td><td>02/15/2021 4:21 PM EDT</td><td></td><td></td> 02/15/2021 04:21:50 PM EDT [facility] LAB RESULTS (OUTSIDE/HISTORICAL) <td>LAB RESULTS (OUTSIDE/HISTORICAL)</td><td></td><td>02/13/2021 1:10 PM EDT</td><td></td><td></td> 02/13/2021 01:10:20 PM EDT [facility] CARDIAC REPORT <td>CARDIAC REPORT</td><td>< /td><td>02/13/2021 1:09 PM EDT</td><td></td><td></td> 02/13/2021 01:09:27 PM EDT [facility] LAB RESULTS (OUTSIDE/HISTORICAL) <td>LAB RESULTS (OUTSIDE/HISTORICAL)</td><td></td><td>02/11/2021 2:16 PM EDT</td><td></td><td></td> 02/11/2021 02:16:56 PM EDT [facility] LAB RESULTS (OUTSIDE/HISTORICAL) <td>LAB RESULTS (OUTSIDE/HISTORICAL)</td><td></td><td>02/11/2021 2:16 PM EDT</td><td></td><td></td> 02/11/2021 02:16:10 PM EDT [facility] Amb Glucose Monitoring Interpretation And Report 12/14 12:00:00 AM EDT [facility] ([facility]) OFFICE OUTPATIENT VISIT 25 MINUTES 12/14/2020 12:00:00 AM EDT [facility] ([facility]) Psychiatric Diag Eval W/Medical Service 11/15/2020 12: 00:00 AM EST [facility] ([facility]) UPPER NDSC BIOPSY SINGLE/MULTIPLE 11/05/2020 12:00:00 AM EST [facility] ([facility]) CVR [employer].Svc. STI / H 10/12/2020 12:00:00 AM EST - 10/12/2020 12:00:00 AM EST [facility] ([facility]) EST PT TG DETAILED 10/12/2020 12:00:00 AM EST - 2020 12:00:00 AM EST [facility] ([facility]) Amb Glucose Monitoring Interpretation And Report 09/20 12:00:00 AM EST [facility] ([facility] ) TG PHONE EST PT E/M BY PHYS 11-20 MIN 1 12:00:00 AM EDT - 07/13/2020 12:00:00 AM EDT [facility] ([facility]) Results ID Date Data Source [id number] 07/22/2021 10:03:00 AM EDT [facility] ([facility]) Name Value Range Interpretation Code Description Data Whit rce(s) Supporting Document(s) Glucose [Mass/volume] in Serum or Plasma [facility] ) Hemoglobin A1c/Hemoglobin.total in Blood 10.2 [facility]) ID Date Data Source [id number] 07/02/2021 08:00:00 PM EDT [facility] Name Value Range Interpretation Code Description Data Whit rce(s) Supporting Document(s) SARS coronavirus 2 RNA [Presence] in Res piratory specimen by DONAVAN with probe detection POSITIVE [facility] This lab was ordered by [facility] a nd reported by [facility]. ID Date Data Source [id number] 06/03/2021 09:00:00 AM EDT [facility] ([facility]) Name Value Range Interpretation Code Description Data Whit rce(s) Supporting Document(s) Creatinine [Mass/volume] in Urine 49.8 mg/dL [facility]) Microalbumin [Mass/volume] in Urine Laboratory test result [facility] ([facility]) Microalbumin/Creatinine [Mass Ratio] in Urine 10.0 MCG/MG 0.0-30.0 [facility] ([facility]) THE [employer] STATES THAT MICROALBUMINURIA IS PRESENT IF THE MICROALBUMIN/CREATININE RATIO EXCEEDS 30 MCG/MG. THE THRESHOLD FOR CLINICAL ALBUMINURIA IS REACHED AT 300 MCG/MG. THE CLASSIFICATION OF A PATIENT SHOULD BE BASED UPON AT LEAST 2 OF 3 ABNORMAL RESULTS ON SPECIMENS COLLECTED WITHIN A 3 TO 6 MONTH TIME FRAME. ID Date Data Source [id number] 06/03/2021 09:00:00 AM EDT [facility] ([facility]) Name Value Range Interpretation Code Description Data Whit rce(s) Supporting Document(s) White Blood Count 6.3 10 4.0-10.0 [facility] ([facility]) Hematocrit 41.3 % 42.0-52.0 [facility] ([facility] Red Blood Count 4.46 10 4.30-6.10 [facility] ([facility]) Hemoglobin 13.5 g/dL 13.5-17.5 [facility] ([facility]) Mean Corpuscular Volume 92.6 fl 80.0-96.0 M EDENT ([facility]) Mean Corpuscular Hemoglobin 30.3 pg 27.0-33.0 [facility] ([facility]) Mean Corpuscular HGB Conc 32.7 g/dL 32.0-36.5 [facility] ([facility]) Platelet Count, Automated 237 10 150-450 [facility] ([facility]) Red Cell Distribution Width 13.5 % 11.5-14.5 [facility] ([facility]) Nucleated Red Blood Cell % 0.0 % 0-0 MED ENT ([facility]) ID Date Data Source [id number] 06/03/2021 09:00:00 AM EDT [facility] ([facility]) Name Value Range Interpretation Code Description Data Whit rce(s) Supporting Document(s) Triglycerides Level 64 mg/dL [facility] ([facility]) LDL Cholesterol 71 mg/dL [facility] ([facility]) Cholesterol Level 150 mg/dL [facility] ([facility] HDL Cholesterol 66 mg/dL [facility] ([facility]) Cholesterol Risk Ratio 2.272 [facility] ([facility]) Non-HDL-C 84 mg/dL [facility] ID Date Data Source [id number] 06/03/2021 09:00:00 AM EDT [facility] ([facility] Name Value Range Interpretation Code Description Data Whit rce(s) Supporting Document(s) Estradiol (E2) [Moles/volume] in Serum or Plasma by Hi gh sensitivity method 139.5 pg/mL 8.0-35.0 [facility] ([facility] This test was developed and its performa nce characteristics determined by [facility]. It has not been cleared by the Food and Drug Administration. Methodology: Liquid chromatography tandem mass spectrometry(LC/MS/MS) Performed at: [address] [id number]er: Marlys Jin MD, Phone: [phone] Testosterone [Mass/volume] in Serum or Plasma 20 ng/dL [phone] [facility] ([facility] ) NORMAL RANGES ARE FOR ADULT FEMALES (OVE R 15 YRS) AND MALES (OVER 19 YRS). FOR PEDIATRIC RANGES PLE ASE CONSULT LITERATURE. ID Date Data Source [id number] 05/29/2021 12:35:00 PM EDT [facility] ([facility] ) Name Value Range Interpretation Code Description Data Whit rce(s) Supporting Document(s) FVC-Pred 5.12 L MED[facility] ([facility], ) PDFReport Laboratory test result MED[facility] ([facility], ) FVC-%Pred-Pre 60 L MED[facility] ([facility], ) FVC-LLN 4.16 L MED[facility] ([facility], ) FVC-Pre 3.12 L MED[facility] ([facility]) Fev1-Pre 2.58 L [facility] ([facility]) Fev1-%Pred-Pre 65 L [facility] ([facility], ) Fev1-Pred 3.93 L [facility] ([facility]) Fev1-LLN 3.12 L [facility] ([facility]) Fev6-Pred 4.92 L [facility] ([facility]) Fev6-Pre 3.12 L [facility] ([facility]) Fev6-%Pred-Pre 63 L [facility] ([facility], ) Fev6-LLN 3.99 L [facility] ([facility], ) Ahd9xsa-Lksu 77 % [facility] ([facility]) Xvb5exd-Sbs 83 % [facility] ([facility]) Hwp2qzq-%Pred-Pre 107 % [facility] ([facility]) Kln2krx-FCO 67 % [facility] ([facility]) Rkg1wqk-Gvnj 96 % [facility] ([facility]) Gvb4ecv-Pyy 100 % [facility] ([facility]) Fff6beo-%Pred-Pre 104 % [facility] ([facility]) FEFMax-Pre 6.45 L/E/sec MED[facility] ([facility]) FEFMax-Pred 9.84 L/E/sec [facility] ([facility]) FEFMax-%Pred-Pre 65 L/E/sec [facility] ([facility]) Yft2798-Jwln 3.37 L/E/sec [facility] ([facility]) Cvr2335-Gwv 3.08 L/E/sec [facility] ([facility]) FEFMax-LLN 7.45 L/E/sec [facility] ([facility]) Abw6530-OTS 1.72 L/E/sec [facility] ([facility]) Yxr4837-%Pred-Pre 91 L/E/sec [facility] ([facility]) ExpTime-Pre 6.24 sec MED[facility] ([facility]) Dnj5jgc0-Pvxg 80 % [facility] ([facility]) Avt8nqn3-Law 83 % [facility] ([facility]) Xzh8vrq6-%Pred-Pre 103 % [facility] ([facility]) Xbx8jyw3-WIM 71 % [facility] ([facility]) ID Date Data Source [id number] 05/10/2021 03:54:[address] [facility] Name Value Range Interpretation Code Description Data Whit rce(s) Supporting Document(s) Progress Note [facility] AEOLXp6qVfZEAjCu28/ERFncJOLfg9BoBYnpVMk9TAyqAWMgN2JvSGO3oD6fHWV4XQsSHlVrAnWtWNYo lbm [file] AgICAgICAgICAgICAgICAgICAgICAgICAgICAgICAg ICAgICAgICAgICAgICAgICAgICAgICAgICAgICAgICAgICAgICAgICAgICAgICAgICAgICAgICAgICAg ICANCiAgICAgICAgICAgICAgICAgICAgICAgICAgICAgICAgICAgICAgICAgICAgICAgICAgICAgICAg ICAgICAgICAgICAgICAgICAgICAgICAgICAgICAgIC AgICAgICAgICAgICANCiAgICAgICAgICAgICAgICAgICAgICAgICAgICAgICAgICAgICAgICAgICAgIC AgICAgICAgICAgICAgICAgICAgICAgICAgICAgICAgICAgICAgICAgICAgICAgICAgICAgICANCiAgIC AgICAgICAgICAgICAgICAgICAgICAgICAgICAgICAg ICAgICAgICAgICAgICAgICAgICAgICAgICAgICAgICAgICAgICAgICAgICAgICAgICAgICAgICAgICAg ICAgICANCiAgICAgICAgICAgICAgICAgICAgICAgICAgICAgICAgICAgICAgICAgICAgICAgICAgICAg ICAgICAgICAgICAgICAgICAgICAgICAgICAgICAgIC AgICAgICAgICAgICAgICANCiAgICAgICAgICAgICAgICAgICAgICAgICAgICAgICAgICAgICAgICAgIC AgICAgICAgICAgICAgICAgICAgICAgICAgICAgICAgICAgICAgICAgICAgICAgICAgICAgICAgICANCi AgICAgICAgICAgICAgICAgICAgICAgICAgICAgICAg ICAgICAgICAgICAgICAgICAgICAgICAgICAgICAgICAgICAgICAgICAgICAgICAgICAgICAgICAgICAg ICAgICAgICANCiAgICAgICAgICAgICAgICAgICAgICAgICAgICAgICAgICAgICAgICAgICAgICAgICAg ICAgICAgICAgICAgICAgICAgICAgICAgICAgICAgIC AgICAgICAgICAgICAgICAgICANCiAgICAgICAgICAgICAgICAgICAgICAgICAgICAgICAgICAgICAgIC AgICAgICAgICAgICAgICAgICAgICAgICAgICAgICAgICAgICAgICAgICAgICAgICAgICAgICAgICAgIC ANCiAgICAgICAgICAgICAgICAgICAgICAgICAgICAg ICAgICAgICAgICAgICAgICAgICAgICAgICAgICAgICAgICAgICAgICAgICAgICAgICAgICAgICAgICAg ICAgICAgICAgICANCjw/wOQzS9jrbOUsokW3Z9kxTn6YDi3VLF0th8QtOBJfLWrjllKrKkjFAaDvDFUh XlgWGft3IJsnEB6GeNWmL7LdF5ReKEtyGJ8FNTVvAD DzkCPfPZKgSKXlClA4TFYrMHbqBJ7FtHZtPErlAKPeTQNdWN3JWLBeE334fvExXX8VPu5ODiNyAE6cjx 0DDfDpYPGkKjcFEkn6KCebEH2KbSYmlFSvVbPwNPEKEjNaQ2jgf2AsAjDrQYXAHYhuGT4Hm3MpyDEdQS o+Cs5BKD7ld7IbRPgjNfCqVO3pkt3GTMgLEkGxR7Ku xFnxBWVkb2rrSADsCW9dcERdLUD1INEabMJpcLdrLkeai9uzzcWroNwmSPQjVIPyBn2fDm8rKWRcXPTz HgVlVYBLDN7ONGWcQVMojQEfMMJgJLMZFC3YHNunYTB6AARgunQfpNSjGYdoVH7RYEExwkMqHlMwNRVG DQo+Ei6UYR2qv7ZcTIntMKPiHC9xol0VMMiZFyLoK7 P7yFPeO9A7ZBtqHg4RMKKiOLUbSrAoMBOSYZskHD7WMY5fyzT0BO1VqFLtSJVnRPXttMLmWGb5N93kaM YjXYwfVL5QYPM+Ирина+Zw0PCVZlVAPeTATwSyJeDYODUdTlZ5IeT7AIe8JwH8BnPS75uEkuvqTsIQdgVI 0WFN8yFDZrYLFEQQ9YxURsuR4deiBpTqAqZYSPEhTv C78dpTHsKQApGJRtEELsBo6MPPAxZ5KjhoZhgHonraUyIAHfWWSZQV2UXLgprlMqkLFhqCygMJ15oBqu FZ5EUy2KDsHjRW3cwr7FqWJbXv6SUFZaCS5MQAKwILBqKFZbIXE5OLGvCnNaLNhzXRCcRRWuWEI2HFSl GEKnJF7RStAhOCSqKVgyRhikPJHoFARkug2MXNBkCV CsWPMtPkKbRMFiTOKcRIjoDTCpCSWfRFU5DIEhWGTqWJ8VAuCqBKKhXAD2PJgdZEUdMWKvnm2VVRBdGY VtJbYkFzBbJCXcFWUqLChrRNVnFVLmAIctKMWaHBTvJH2YKxSdNITiZRHcEqyqYKJvEYHfcv7TLQHuPO YlBsG9ARStMROoNZGsNJktJZAjGNH0PSX8ZVNuRYXm RG5BSnQeEAShOEE1YEviIHPoFGNdzd3GTKFaARTpIXt6KBDvUDQnDSOkPQdpUYOePQW5HUDtWVMjVSQs DO3SToRbBCNsKKE1XsChKINyBLQisn8TWHWvSQAdNzS5CUMuJEMnATHwXGtcCKArMXB4KHR2CJGsXUAx UI3QKiDeLFDsQZbeNvSsNIQbPOArrb0EFYIgOYRqVA IkKOKpTASbUXJpLJnjHHNmRPA8XVv3MBPsNAViUV0HTjFuUCFgMMmxZBauGREsNOAixc0RPZOuTPZqKJ c2IeVqLCGpVCEjFFxnYNHdSOEhGoLwTUOdITWdBC3DIhAqWGGgLkCgGGNcUATwDZFluz7XANFcVMQrUR UlLLGvZHEzRDNqQPh9cyHlmJXzCMg7AF7XU4JnyiSk VbLVUk0Xc008OAL6HOWiCt4EM2qpTc7cTDThGYFRVa3CCIw4IsI2KdN6EwAnBCWcW7VdFESxX9EuJzH9 QzTfUOK3Gps+YNv7BqEwWOAfBqPcVSUtKeS5SJVgFcAlMJVrEyHjABF7Hl8vYNDMGi3+DQpzdGFydHhy RABWCnLbTyv0KUdgGVHOOe5L ID Date Data Source [id number] 03/21/2021 02:28:00 PM EDT [facility] ([facility]) Name Value Range Interpretation Code Description Data Whit rce(s) Supporting Document(s) Hemoglobin A1c/Hemoglobin.total in Blood Laboratory test result [facility] ([facility]) Glucose [Mass/volume] in Serum or Plasma 213 [facility] ([facility]) ID Date Data Source [id number] 02/26/2021 10:26:[address] [facility] Name Value Range Interpretation Code Description Data Whit rce(s) Supporting Document(s) Discharge Summary [facility] PMADAl4wHsHJRqGf60/KZEudPITdb7ZgHIulEQm3EPraLYTqW2UaUID3xD4zMIO5LTiCIzLyQrBhGyW9 m [file] ICAgICAgICAgICAgICAgICAgICAgICAgICAgICAgICAgICAgICAgICAgICAgICAgICAgICAgICAgICAg DEXyYCJpDLJmONOzWS0RWBHkBTVxXJYcERLxNCCyIK AgICAgICAgICAgICAgICAgICAgICAgICAgICAgICAgICAgICAgICAgICAgICAgICAgICAgICAgICAgIC XxNDUxUTQrEVWnYWSnGWIaAFRjOPXeIA0ZDKJpJLHwPCZvWGHqLPYrUIJrYXSoKVUyIEWyHNVjVHLtYF AgICAgICAgICAgICAgICAgICAgICAgICAgICAgICAg SEYuVSYzHNMyCSOjRAHkWGQpKAZwLWSkHAZhFLRnZFGzSM6FXKYmOQZuHGLeJCHhIFBxWZWdWJEzRBUx ICAgICAgICAgICAgICAgICAgICAgICAgICAgICAgICAgICAgICAgICAgICAgICAgICAgICAgICAgICAg JPJaXXAtCTKlTZMmQLGeEP2XWOAsYBUqFPXpRMNqKO AgICAgICAgICAgICAgICAgICAgICAgICAgICAgICAgICAgICAgICAgICAgICAgICAgICAgICAgICAgIC WyCYIrBMBcMUHvTEFgYDHpGVVhEXIzETXnSV8ZQCAqOXJwBNZpLYWhJZGcKILqCWOwXYVqIAYfTJAqVN AgICAgICAgICAgICAgICAgICAgICAgICAgICAgICAg BIOlEBLjWTCvTFKwDTNxCAWjMNIfXFNtMWLlOINkMJWrKRGzVR1MTRBeYCUsYUVtYMFlHURwHOYmNEGw ICAgICAgICAgICAgICAgICAgICAgICAgICAgICAgICAgICAgICAgICAgICAgICAgICAgICAgICAgICAg BDMyZFJsEJAgCRPwNKYuYVCyFT8RMYHjIKArCRPqGR AgICAgICAgICAgICAgICAgICAgICAgICAgICAgICAgICAgICAgICAgICAgICAgICAgICAgICAgICAgIC IgXLBpMEGeUKJgROYkPYXuZVLaMYNlPCTxPMUkAX9QLMBpPWRnDMCfXNXvYVQfXBIjPPWtZTZqKAEiSX AgICAgICAgICAgICAgICAgICAgICAgICAgICAgICAg TEOfIOZmXSWrQJXdWNYdENVlXKPaBOFqVZWiTDUlGHGcDKAfQZMmCL0LMRXnWWPiKSLaMJNaJWDwOXCu ICAgICAgICAgICAgICAgICAgICAgICAgICAgICAgICAgICAgICAgICAgICAgICAgICAgICAgICAgICAg ETNfZBBfYORgASPjIFRuPLHdRCSwEU3KJN07dSPnt7 C1NYQlLV2mloi/Wm8ACKrhyuNjvSElJG8ITaIrXD9mnz3LToMeKZ0djy1IOJjQYzPeP7E9hBGnUYAeRS MGQfPeT36aIUlhJb36MEzvPYPkBpRkAKk0Wy1BVpSmM9hqMTOwPpO6HKTzWyD9NFUcWuW6SJYnRsVfRY AgUDClCM5LNYBhO694ixJfEU3UWk6WUlNjCW5lzi6Z JsQpOEYnEewKJip1TYmvGB4TrQVrjYMnESHxQYCXBsPtQ2kdp4OuBwGvXLAUXDfnBT5Qn3DmpGCpJWf+ Xl2UJH9ec4BgSVodNUBwFK1xoq1AQMqSSuKkF9ZuvGywYTHdu1FwDKSvWMNCzN6aSPM1PRK3XBVehNBs nOxvDmnen5lxxeIhmKvvUYSrGBJaLf5mZgAtArTyBF v9RkOlWK4nAPwiCV1MIHF4ACncRUHfQKXeC1nBQtMhHEEfIXXfrWzdDA5SSvDpH2EogcJgrLSxRRCuUB INCj4+NCzuylLvOncSHyI3RAUmp4XwBJa8MD3SFRYrZEvbSL5WIHXreV5ePWjmZC5DPkYlIhBkXEIXMt KiG53ljIIdEBl0P4ZxOwYkIZSrYxuvVYDeXGooLlEc ZXMgWyBdDQogID4+ID4+GQmvMO7GOMqszoMqEKGvRm2UIOHrIGCsPJ0yDZMjJMHhR7Y1rSkoJSVJLwUk Q4qfzuygIV2bULGjK115lEdqvtBdPNK7YMBlCp7NBPEoIBO6RJNhvUIlKdYpBRWHSCigDN0AtFEsNOM1 mR9tANtwRDAgIZAoT1fRKyRzrUoqST06rRfyprTbcR BdDQo+Ho0QHP7ma9XxJGm8qaWvKSmlQAJ0PEraJRDiSMQfCCHoDZW6EIY1AFYOMdKxVPVeLXSyZTnrOU CtYUIqtn2STFPvOLQkIQM4LjUpFTDkTLRdDDvlNXNhOMVbZkSbCLPxCGTzOK8JGjLmMNDrDJQhUBgzVW BmCXXjpw9LNVPlYAZqTyxdUiWsMCVuPGGeLMboPCMj YEQhUAIwEBEtVDJdGM3WDhUdDHNbBRE6EEnaGGGgUPYmhs9TAEXwNFFiMeS7QWYbVFYrAHOgOSrfKJHy HLTeCDD6GEVcYXVbSI4NLhYqCUEhQRTyJEHqHUWpBOAhor9HRUSyXYMoNjYeYdGmFLEbHXJjAVskZWZj XICxKMD8ZLJnEITdAI8RCtLkRUQrALKdIAwsRBZkGQ Szhx2IRBTvNBUzSfK5OaYyQKNjDNClKZnrIDTsPBMuYkm4BYZhYYDlDV8NMnIdSTCzSFD7QboqNTUtDS Hxtf3RDZXnFKXxYNr1ORZsBUWxBXAwGUivAGWgNLQ8ISM8NDLeYEOkAD1LLzTyMLSzGLXjCOanYWBiUE Wjwt7RMSRmLONpQoJ1FWCuWYXrKKDsPXhcPPRaTBV5 EZP9LFYuLXWqCU7KEyGgHLZtKCx7SuofPQQkXEOvkj3GMODsCNDyXgSzEIXzBXAqFWYsUDueRAXqSMG3 EHV4ORNvJYMsSS5ZRhVdZRMhJhttWEXlLOZmBSTxza6TGFHhQPYnHIGfMZBcMNWuGCWbCIegOEQaXER0 PyL0JEUxAEPwBW1MTdIsURRfXgw1YsivXUYiXAEohf 6COKApDNTvAXAlXQUwRSUrGOYlYJkuIMKoOVBuNFO7BLHlRMCfEG2QNnMwWPJbPyIbHVCbIUNfEGAjta 6WEZXuWRDmYUPcJMNqEAOkIHPpNEcnPBVlRCNsGClsBLKmHHAxVT5EIeHnJJVjVxZhKtNlKYXvLKBazn 5ZPTFyZQXhWlBmFFZuRZCiFXXrVCotAJHkRHAuNPA5 BXMuAEYrNB9BLcKjDJkmYQMBNah1RAhhV8c1YANlTo1OH8Tld9HcMlVxPCPUGEjfYP4lnqQtKBXvDf3Q Q3vOSqt4DnHuHIr2QDGlNqHeCQLvCASvWbC4UWYjKHwnGWMlIb5jRGWwMcXfNCDjLrYkATX5MCE9EFJ8 VUp5QAKsJZEsPWH1AsAuCY1DOt2VGdG4FWC8aWBnXq2PNtZ1GYXAOtIeZT0CYHs= ID Date Data Source [id number] 02/21/2021 10:37:[address] [facility] Name Value Range Interpretation Code Description Data Whit rce(s) Supporting Document(s) Progress Note [facility] VZYHNb3zPkUFGfOe89/WALwxFMLtu8AwNKvmREg0RLjcYROzK3UnOHX8lY6oKAY1LVfWDmLuIoWjGtBi lbm [file] FD8HDVe= ID Date Data Source [id number] 02/21/2021 10:33:[address] [facility] Name Value Range Interpretation Code Description Data Whit rce(s) Supporting Document(s) Operative Note [facility] ZPOEXo4aTgRDCzAy21/LQXbhYGJee5OwGGheOIp1STczNPOyG8MlJUQ4zO8qIBY9XEfDWiGxDbBhPfWi lbm [file] CiAgICAgICAgICAgICAgICAgICAgICAgICAgICAgICAgICAgICAgICAgICAgICAgICAgICAgICAgICAg ICAgICAgICAgICAgICAgICAgICAgICAgICAgICAgICAgICAgICAgICANCiAgICAgICAgICAgICAgICAg ICAgICAgICAgICAgICAgICAgICAgICAgICAgICAgIC AgICAgICAgICAgICAgICAgICAgICAgICAgICAgICAgICAgICAgICAgICAgICAgICAgICANCiAgICAgIC AgICAgICAgICAgICAgICAgICAgICAgICAgICAgICAgICAgICAgICAgICAgICAgICAgICAgICAgICAgIC AgICAgICAgICAgICAgICAgICAgICAgICAgICAgICAg ICANCiAgICAgICAgICAgICAgICAgICAgICAgICAgICAgICAgICAgICAgICAgICAgICAgICAgICAgICAg ICAgICAgICAgICAgICAgICAgICAgICAgICAgICAgICAgICAgICAgICAgICANCiAgICAgICAgICAgICAg ICAgICAgICAgICAgICAgICAgICAgICAgICAgICAgIC AgICAgICAgICAgICAgICAgICAgICAgICAgICAgICAgICAgICAgICAgICAgICAgICAgICAgICANCiAgIC AgICAgICAgICAgICAgICAgICAgICAgICAgICAgICAgICAgICAgICAgICAgICAgICAgICAgICAgICAgIC AgICAgICAgICAgICAgICAgICAgICAgICAgICAgICAg ICAgICANCiAgICAgICAgICAgICAgICAgICAgICAgICAgICAgICAgICAgICAgICAgICAgICAgICAgICAg ICAgICAgICAgICAgICAgICAgICAgICAgICAgICAgICAgICAgICAgICAgICAgICANCiAgICAgICAgICAg ICAgICAgICAgICAgICAgICAgICAgICAgICAgICAgIC AgICAgICAgICAgICAgICAgICAgICAgICAgICAgICAgICAgICAgICAgICAgICAgICAgICAgICAgICANCi AgICAgICAgICAgICAgICAgICAgICAgICAgICAgICAgICAgICAgICAgICAgICAgICAgICAgICAgICAgIC AgICAgICAgICAgICAgICAgICAgICAgICAgICAgICAg ICAgICAgICANCiAgICAgICAgICAgICAgICAgICAgICAgICAgICAgICAgICAgICAgICAgICAgICAgICAg ICAgICAgICAgICAgICAgICAgICAgICAgICAgICAgICAgICAgICAgICAgICAgICAgICANCjw/hWTfC3em bVEuljN1I1ztBb1XCl1RPI7lb0NjAJUvAExxjtOgRt vISoCiXYHqUomAHkr0JEifPY1FaEDhG8GyK7MqEUkiRT7DFMQpBAIsnWShQRAqJBTgTyZ6RDImIUjyEB 5HpNRbJQukPKFhFYNpSkUmNLWuZL7DZUNqJ106zeSzXl8LMb2QYxZgCL8cfn4MKaToGGTvNkxIBzy7YI zgFD5CpRLocWYkThQwUSAVPqGzN9kar8GiNvLnDJFS SJicKA3Kz6VwgLQcFVq+Pe8NKF0aa8YzHOylFeNpZP3mel2AWZjUMwJjS1XyeVulWP8fLBNbuOv3DGKH t8CpXEQ7RFQbtJDugGksSxdjy1ixqnZhhNfnCIKvWDDvCq5bLkOeOvVePXE1LNlvAV6rOEgpKS5QGHM4 CRkzLUDiUTSuM7bKLyGrLARbVTPshTsvAI3SKmXcY4 BhcmVudCAyNSAwIFINCj4+BFibraXdWpuUNuV9KJWio0NmNPu5BA2RPBHkWImwMQ5LDNXpyN9qEAnsVG 4FKlBiCaTbLGZDOkEbF45wxGPkAEc0N8JuKeAxPQXeDrfmFSYpAYfyUiKpNZZbQxBaFZerGC0+ID4+DQ wqXR0CNCdhjrCvQFHpHc4BDBXyEXNkJU5lWDMrBVWp J1R8xSuzGUNGRjZaX9bkpwjuEM8tPXTrQ653tKbwgdCrRPA3UHRvEg0UQUBrWNZ9OBExhENqNcEfEZXF SHjmCP8PfCReRJS7kY1zJYnwVCTjNTHpY8vVTkEqxNzdWM06pYlahfWmxOHmNCq+Rw8WZO6or2SrHDw1 gdPnDGmcVDW1RMvbZNRiJSRcNDImPJT2NRH3URUECa IvUKFyFNNwENutGOUuRJKjsi4GHRUgWNKaDhWuRLVqCIWkKBPcEKdcZTJaCAI9XhN8PJYtBRCoRO7DOw SqZGPzDHRsMWzaITDgGFKiym8TLSUyBXEhPdWlBSTxJVKwOEGoCKonZMFnSIEaSvR9ERNuWVScTL3GJl FtNAEaJQU8IkJpYTQtACEjto2IJHMhLAEuSmr5HcIe QTKgYADbXAehCHAuLHZ9AmC2JPVqBLWoXD6TBfDpHFBxCXr3YrOcUEPbYIMvwk0XMPUhRMUdVPFyTiPi TTRwJCMvOHfjIUNnHNE9ILbkVUYgSHUoZF2CIiRsFIHgYLxwCxEmRWJcWHFopt0RKOYnGQEuEUN7FeUu WJNzMAEkGUqnODIuDBBoAGVhXVZhFQUnEB8SRcMyZH DlVRG0RdIzHAJfDCMauf1HDZFaJPOsBBgzXZLoWRNuGTHaEAlbBJQmFSNeCcigXNMwIKLaFL9DSaKqUJ PkBSI0YcamDDLmLXJltc6BSPGrGOVlVvR0YPEuYWVnPRPrPNapECFeCUUcIHCbBKMxRJTjQR1FSySfBX YqENBmFDZuTYBdPCUely8QUECxOZYhVpWzKHFlHPAo IUXcTYomUDLmACIoGNJ9UYKgMGYtTQ4KSwMaGHUnOLK4BLvqTQHoXGPhkf2ZWNPpANXeILC0LXWzUNGv LLSvXSxeXBCcWIM9HyIiWYVpUAHzFJ2KPnZhHBowHUKYXul3OMynA6o7IEOpYM6GS0Ast8RoGtyzOFLR UDwcKN4ityMzISFpMi1HR8nEXhb3WVLyGeQ3VfXrTL XoESSzXYXyH3KwWFRnXNHrSgKqWB4sYHxmH3EyKtxeXrD7ADScTIXgWnRfCmEaYRWaYCP0QhL0PsNqOS 6HBm6VCuD0BDD8yRDxVk8TEOF4SfJPFbGqYM0EUNu= ID Date Data Source [id number] 02/20/2021 05:41:58 AM EDT [facility] Name Value Range Interpretation Code Description Data Whit rce(s) Supporting Document(s) Progress Note [facility] VMJMZb4mMiDJTjKj09/RTMhtQZYcm7XeURaaGHw5VTovCTEiI2KcIKC2cX4qKYE8ANdONeMhVaUnTdYf lbm [file] PyfGvfDDDYPyN1POkKTwZgPQ6QRCy= ID Date Data Source [id number] 02/20/2021 12:05:[address] [facility] Name Value Range Interpretation Code Description Data Whit rce(s) Supporting Document(s) Glucose [Mass/volume] in Capillary blood by Glucometer 144 mg/dL 70- 140 [facility] ID Date Data Source [id number] 02/19/2021 05:46:[address] [facility] Name Value Range Interpretation Code Description Data Whit rce(s) Supporting Document(s) Progress Note [facility] HQMNOw9aWlEXRgDk11/FEClhVKFnz6UjKKcmDVp3ARsgQWAnI6XvGUS1hA5mFMA7NLoJTkEzYwGlQlEq lbm [file] NGYeCgRA6OBOc= ID Date Data Source [id number] 02/19/2021 01:37:[address] [facility] Name Value Range Interpretation Code Description Data Whit rce(s) Supporting Document(s) Glucose [Mass/volume] in Capillary blood by Glucometer 97 mg/dL 70- 140 [facility] ID Date Data Source [id number] 02/19/2021 10:29:[address] [facility] Name Value Range Interpretation Code Description Data Whit rce(s) Supporting Document(s) History and Physical [facility] IGAGMo3dKsMSUeSm61/YRPnqJAPok9PqRYocOEm2ARgrDTXaW1AuDVP1sV3gJUH6QAzJScMzNwOzKhCw lbm [file] [id number]= ID Date Data Source [id number] 02/19/2021 08:02:27 AM [facility] Name Value Range Interpretation Code Description Data Whit rce(s) Supporting Document(s) Glucose [Mass/volume] in Capillary blood by Glucometer 172 mg/dL 70- 140 H [facility] ID Date Data Source [id number] 02/22/2021 10:11:00 AM [facility] Surgical Pathology ReportName: CARLITOS SANTIZOMRN: [id number] Number: [id number] Date: 02/19/2021 00:00Received Date: 02/20/2021 09:52Physician(s): GRACIELA THOMPSON MD NIKOLAVSKY, DMITRIY, MDSpecimen(s) ReceivedA: Left testicleB: Right testicleClinical HistoryGender dysphoria.DiagnosisA,B) TESTICLES, LEFT AND RIGHT, EXCISION: BENIGN TESTICULAR PARENCHYMA. Electronically Signed By Usman Munson M.D., Attending Pathologist02/22/2021 10:11:04 Unless 'gross-only' is specified, the final diagnosis is based on amicroscopic examination of admitting representative sections of tissue.Gross Description The specimen [...] with no mass es orlesions grossly identified. Records Management Engineer sections are submitted in onecassette. Part B [...] parenchyma with no masses or lesions grosslyidentified. Records Management Engineer sections are submitted in one cassette. PAIUTE-SHOSHONE\\This report may include one or more immunohistochemical stain results thatuse analyte specific reagents. All positive and negative controls havebeen reviewed by the attending pathologist and are satisfactory. The testswere developed and their performance characteristics determined by [facility] Pathology department. They have not been cleared or approved by the USFood and Drug Administration. The FDA has determined that such clearanceor approval is not necessary. Name Value Range Interpretation Code Description Data Whit rce(s) Supporting Document(s) ID Date Data Source [id number] 02/14/2021 12:15:00 PM EDT [place] ([facility]) Name Value Range Interpretation Code Description Data Whit rce(s) Supporting Document(s) ID Date Data Source [id number] 02/14/2021 12:15:00 PM EDT [facility]) Name Value Range Interpretation Code Description Data Whit rce(s) Supporting Document(s) ID Date Data Source [id number] 02/14/2021 12:15:00 PM EDT [facility]) Name Value Range Interpretation Code Description Data Whit rce(s) Supporting Document(s) ID Date Data Source [id number] 02/14/2021 12:15:00 PM EDT [facility] Name Value Range Interpretation Code Description Data Whit rce(s) Supporting Document(s) SARS-CoV-2 (COVID-19) RNA [Presence] in Respiratory specimen by DONAVAN with probe detection Not Detected [facility] This lab was ordered by [facility] and reported by [employer]. ID Date Data Source [id number] 02/04/2021 11:12:00 AM EDT [facility]) Name Value Range Interpretation Code Description Data Whit rce(s) Supporting Document(s) Hemoglobin A1c/Hemoglobin.total in Blood 8.3 % Hemoglobin a1C [facility]) estimated average glucose 192 mg/dL 60-110 Above high norm al Estimated Average Glucose [facility]) ID Date Data Source [id number] 02/04/2021 11:12:00 AM EDT [facility]) Name Value Range Interpretation Code Description Data Whit rce(s) Supporting Document(s) total 25(oh) vitamin D 11.2 NG/mL 30.0-100.0 Below low normal T otal 25(Oh) Vitamin D [facility]) ID Date Data Source [id number] 02/04/2021 11:12:00 AM EDT [facility]) Name Value Range Interpretation Code Description Data Whit rce(s) Supporting Document(s) thyroid stimulating hormone 2.670 uIU/mL 0.358-3.740 Thyroid Stimulating Hormone [facility] ([facility]) ID Date Data Source [id number] 02/04/2021 11:12:00 AM EDT [place] ([facility]) Name Value Range Interpretation Code Description Data Whit rce(s) Supporting Document(s) triglycerides level 92 mg/dL <150 Triglycerides Le manjit [facility] ([facility]) HDL cholesterol 65 mg/dL >40 HDL Cholesterol ATHE NA ([facility]) non-HDL-C 62 mg/dL Non-hdl-c [facility] ([facility]) Cholesterol in LDL [Mass/volume] in Serum or Plasma 44 mg/dL <1 00 LDL Cholesterol [facility] ([facility]) cholesterol level 127 mg/dL <200 Cholesterol Level [facility] ([facility]) cholesterol risk ratio <5 Cholesterol R isk Ratio [facility] ([facility]) ID Date Data Source [id number] 02/04/2021 11:12:00 AM EDT [facility] ([facility]) Name Value Range Interpretation Code Description Data Whit rce(s) Supporting Document(s) estimated average glucose 192 mg/dL 60-110 Above high norm al Estimated Average Glucose [facility] ([facility]) Hemoglobin A1c/Hemoglobin.total in Blood 8.3 % Hemoglobin a1C [facility] ([facility]) ID Date Data Source [id number] 02/04/2021 11:12:00 AM EDT [facility] ([facility]) Name Value Range Interpretation Code Description Data Whit rce(s) Supporting Document(s) total 25(oh) vitamin D 11.2 NG/mL 30.0-100.0 Below low normal T otal 25(Oh) Vitamin D [facility] ([facility]) ID Date Data Source [id number] 02/04/2021 11:12:00 [facility] Name Value Range Interpretation Code Description Data Whit rce(s) Supporting Document(s) thyroid stimulating hormone 2.670 uIU/mL 0.358-3.740 Thyroid Stimulating Hormone [facility] ([facility]) ID Date Data Source [id number] 02/04/2021 11:12:00 AM EDT [facility] ([facility]) Name Value Range Interpretation Code Description Data Whit rce(s) Supporting Document(s) triglycerides level 92 mg/dL <150 Triglycerides Le manjit [facility] ([facility]) HDL cholesterol 65 mg/dL >40 HDL Cholesterol ATHE NA ([facility]) Cholesterol in LDL [Mass/volume] in Serum or Plasma 44 mg/dL <1 00 LDL Cholesterol [facility] ([facility]) cholesterol level 127 mg/dL <200 Cholesterol Level [place] ([facility]) cholesterol risk ratio <5 Cholesterol R isk Ratio [place] ([facility]) non-HDL-C 62 mg/dL Non-hdl-c [facility] ([facility]) ID Date Data Source [id number] 02/04/2021 11:12:00 AM EDT [place] ([facility]) Name Value Range Interpretation Code Description Data Whit rce(s) Supporting Document(s) estimated average glucose 192 mg/dL 60-110 Above high norm al Estimated Average Glucose [place] ([facility]) Hemoglobin A1c/Hemoglobin.total in Blood 8.3 % Hemoglobin a1C [place] ([facility]) ID Date Data Source [id number] 02/04/2021 11:12:00 AM EDT [place] ([facility]) Name Value Range Interpretation Code Description Data Whit rce(s) Supporting Document(s) total 25(oh) vitamin D 11.2 NG/mL 30.0-100.0 Below low normal T otal 25(Oh) Vitamin D [place] ([facility]) ID Date Data Source [id number] 02/04/2021 11:12:00 AM EDT [place] ([facility]) Name Value Range Interpretation Code Description Data Whit rce(s) Supporting Document(s) thyroid stimulating hormone 2.670 uIU/mL 0.358-3.740 Thyroid Stimulating Hormone [facility] ([facility]) ID Date Data Source [id number] 02/04/2021 11:12:00 AM EDT [place] ([facility]) Name Value Range Interpretation Code Description Data Whit rce(s) Supporting Document(s) triglycerides level 92 mg/dL <150 Triglycerides Le manjit [facility] ([facility]) HDL cholesterol 65 mg/dL >40 HDL Cholesterol [place] ([facility]) cholesterol level 127 mg/dL <200 Cholesterol Level [place] ([facility]) Cholesterol in LDL [Mass/volume] in Serum or Plasma 44 mg/dL <1 00 LDL Cholesterol [place] ([facility]) non-HDL-C 62 mg/dL Non-hdl-c [facility] ([facility]) cholesterol risk ratio <5 Cholesterol R isk Ratio [facility] ([facility]) ID Date Data Source [id number] 02/04/2021 11:12:00 AM EDT [place] ([facility]) Name Value Range Interpretation Code Description Data Whit rce(s) Supporting Document(s) Hemoglobin A1c/Hemoglobin.total in Blood 8.3 % Hemoglobin a1C [facility] ([facility]) estimated average glucose 192 mg/dL 60-110 Above high norm al Estimated Average Glucose [facility] ([facility]) ID Date Data Source [id number] 02/04/2021 11:12[facility]00 [facility] Name Value Range Interpretation Code Description Data Whit rce(s) Supporting Document(s) total 25(oh) vitamin D 11.2 NG/mL 30.0-100.0 Below low normal T otal 25(Oh) Vitamin D [facility] ([facility]) ID Date Data Source [id number] 02/04/2021 11:12:00 AM EDT [place] ([facility]) Name Value Range Interpretation Code Description Data Whit rce(s) Supporting Document(s) thyroid stimulating hormone 2.670 uIU/mL 0.358-3.740 Thyroid Stimulating Hormone [facility] ([facility]) ID Date Data Source [id number] 02/04/2021 11:12:00 AM EDT [place] ([facility]) Name Value Range Interpretation Code Description Data Whit rce(s) Supporting Document(s) cholesterol level 127 mg/dL <200 Cholesterol Level [facility] ([facility]) triglycerides level 92 mg/dL <150 Triglycerides Le manjit [facility] ([facility]) HDL cholesterol 65 mg/dL >40 HDL Cholesterol [place] ([facility]) Cholesterol in LDL [Mass/volume] in Serum or Plasma 44 mg/dL <1 00 LDL Cholesterol [place] ([facility]) non-HDL-C 62 mg/dL Non-hdl-c [facility] ([facility]) cholesterol risk ratio <5 Cholesterol R isk Ratio [facility] ([facility]) ID Date Data Source [id number] 01/28/2021 03:18:[address] 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 [file] [id number]= ID Date Data Source [id number] 12/14/2020 11:56:00 AM EDT [facility] ) Name Value Range Interpretation Code Description Data Whit rce(s) Supporting Document(s) Glucose [Mass/volume] in Serum or Plasma 159 [facility] ([facility] ) Hemoglobin A1c/Hemoglobin.total in Blood 8.4 [facility] ([facility] ) ID Date Data Source [id number] 12/12/2020 05:16:00 PM EDT [place] ([facility]) Name Value Range Interpretation Code Description Data Whit rce(s) Supporting Document(s) nt-pro BNP 25 pg/mL <125 Nt-pro BNP [place] ([facility]) ID Date Data Source [id number] 12/12/2020 05:16:00 PM EDT [place] ([facility]) Name Value Range Interpretation Code Description Data Whit rce(s) Supporting Document(s) glucose, fasting 181 mg/dL 70-100 Above high normal Glucose, Fas ting [place] ([facility]) blood urea nitrogen 12 mg/dL 7-18 Blood Urea Nitro gen [place] ([facility]) sodium level 137 mEq/L 136-145 Sodium Level [facility] ([facility]) glomerular filtration rate > 60.0 >56 Glomerula r Filtration Rate [place] ([facility]) potassium serum 4.4 mEq/L 3.5-5.1 Potassium Serum [place] ([facility]) creatinine for GFR 0.78 mg/dL 0.70-1.30 Creatinine for GF R [place] ([facility]) carbon dioxide level 28 mEq/L 21-32 Carbon Dioxide Level [place] ([facility]) chloride level 102 mEq/L 98-107 Chloride Level [place] ([facility]) calcium level 9.0 mg/dL 8.5-10.1 Calcium Level [place] ( [facility]) anion gap 7 mEq/L 8-16 Below low normal Anion Gap [place] ( [facility]) alkaline phosphatase 84 U/L 45-117 Alkaline Phosph atase [place] ([facility]) bilirubin,total 0.3 mg/dL 0.2-1.0 Bilirubin,total ATHE NA ([facility]) ALT/SGPT 31 U/L 12-78 ALT/SGPT [place] ([facility]) total protein 6.6 gm/dL 6.4-8.2 Total Protein [place] ( [facility]) AST/SGOT 15 U/L 7-37 AST/SGOT [place] ([facility]) albumin 3.7 gm/dL 3.2-5.2 Albumin [facility] ([facility]) albumin/globulin ratio Albumin/globu trish Ratio [facility] ([facility]) ID Date Data Source [id number] 12/12/2020 05:16:00 PM EDT [place] ([facility]) Name Value Range Interpretation Code Description Data Whit rce(s) Supporting Document(s) white blood count 6.3 10 4.0-10.0 White Blood Count [place] ([facility]) red blood count 4.57 10 4.30-6.10 Red Blood Count [place] NA ([facility]) hemoglobin 14.1 g/dL 13.5-17.5 Hemoglobin [place] ([facility]) mean corpuscular volume 93.4 fL 80.0-96.0 Mean Corpusc ular Volume [place] ([facility]) mean corpuscular HGB conc 33.0 g/dL 32.0-36.5 Mean Corpu scular HGB Conc [facility] ([facility]) mean corpuscular hemoglobin 30.9 pg 27.0-33.0 Mean Cor puscular Hemoglobin [place] ([facility]) hematocrit 42.7 % 42.0-52.0 Hematocrit [place] ([facility]) neutrophils % 44.7 % 36.0-66.0 Neutrophils % [place] ( [facility]) platelet count, automated 231 10 150-450 Platelet C ount, Automated [place] ([facility]) red cell distribution width 13.3 % 11.5-14.5 Red Cell Distribution Width [place] ([facility]) eos % 8.7 % 0.0-3.0 Above high normal Eos % [place] ([facility]) baso % 2.1 % 0.0-1.0 Above high normal Baso % [place] ([facility]) mono % 9.7 % 2.0-8.0 Above high normal [place] % [place] ([facility]) lymph % 33.7 % 24.0-44.0 Lymph % [place] ([facility]) immature granulocyte % 1.1 % 0-3.0 Immature Gran ulocyte % [place] ([facility]) mono # 0.6 10 0.0-0.8 [place] # [facility] ([facility]) neutrophils # 2.8 10 1.5-8.5 Neutrophils # [place] ( [facility]) nucleated red blood cell % 0.0 % 0-0 Nucleated Red Blood Cell % [place] ([facility]) lymph # 2.1 10 1.5-5.0 Lymph # [place] ([facility]) eos # 0.6 10 0.0-0.5 Above high normal Eos # [place] ([facility]) baso # 0.1 10 0.0-0.2 Baso # [facility] ([facility]) ID Date Data Source [id number] 12/12/2020 05:16:00 PM EDT [place] ([facility]) Name Value Range Interpretation Code Description Data Whit rce(s) Supporting Document(s) nt-pro BNP 25 pg/mL <125 Nt-pro BNP [place] ([facility]) ID Date Data Source [id number] 12/12/2020 05:16:00 PM EDT [place] ([facility]) Name Value Range Interpretation Code Description Data Whit rce(s) Supporting Document(s) glucose, fasting 181 mg/dL 70-100 Above high normal Glucose, Fas ting [place] ([facility]) sodium level 137 mEq/L 136-145 Sodium Level [facility] ([facility]) glomerular filtration rate > 60.0 >56 Glomerula r Filtration Rate [place] ([facility]) blood urea nitrogen 12 mg/dL 7-18 Blood Urea Nitro gen [place] ([facility]) creatinine for GFR 0.78 mg/dL 0.70-1.30 Creatinine for GF R [place] ([facility]) chloride level 102 mEq/L 98-107 Chloride Level [place] ([facility]) potassium serum 4.4 mEq/L 3.5-5.1 Potassium Serum [place] ([facility]) carbon dioxide level 28 mEq/L 21-32 Carbon Dioxide Level [place] ([facility]) AST/SGOT 15 U/L 7-37 AST/SGOT [place] ([facility]) ALT/SGPT 31 U/L 12-78 ALT/SGPT [place] ([facility]) alkaline phosphatase 84 U/L 45-117 Alkaline Phosph atase [place] ([facility]) anion gap 7 mEq/L 8-16 Below low normal Anion Gap [place] ( [facility]) calcium level 9.0 mg/dL 8.5-10.1 Calcium Level [place] ( [facility]) total protein 6.6 gm/dL 6.4-8.2 Total Protein [place] ( [facility]) albumin 3.7 gm/dL 3.2-5.2 Albumin [place] ([facility]) albumin/globulin ratio Albumin/globu trish Ratio [place] ([facility]) bilirubin,total 0.3 mg/dL 0.2-1.0 Bilirubin,total ATHE NA ([facility]) ID Date Data Source [id number] 12/12/2020 05:16:00 PM EDT [place] ([facility]) Name Value Range Interpretation Code Description Data Whit rce(s) Supporting Document(s) white blood count 6.3 10 4.0-10.0 White Blood Count [place] ([facility]) hemoglobin 14.1 g/dL 13.5-17.5 Hemoglobin [place] ([facility]) red blood count 4.57 10 4.30-6.10 Red Blood Count [place] NA ([facility]) mean corpuscular volume 93.4 fL 80.0-96.0 Mean Corpusc ular Volume [place] ([facility]) mean corpuscular hemoglobin 30.9 pg 27.0-33.0 Mean Cor puscular Hemoglobin [place] ([facility]) mean corpuscular HGB conc 33.0 g/dL 32.0-36.5 Mean Corpu scular HGB Conc [place] ([facility]) hematocrit 42.7 % 42.0-52.0 Hematocrit [place] ([facility]) lymph % 33.7 % 24.0-44.0 Lymph % [place] ([facility]) red cell distribution width 13.3 % 11.5-14.5 Red Cell Distribution Width [place] ([facility]) platelet count, automated 231 10 150-450 Platelet C ount, Automated [place] ([facility]) neutrophils % 44.7 % 36.0-66.0 Neutrophils % [place] ( [facility]) eos % 8.7 % 0.0-3.0 Above high normal Eos % [place] ([facility]) mono % 9.7 % 2.0-8.0 Above high normal [place] % [facility] ([facility]) baso % 2.1 % 0.0-1.0 Above high normal Baso % [place] ([facility]) immature granulocyte % 1.1 % 0-3.0 Immature Gran ulocyte % [place] ([facility]) nucleated red blood cell % 0.0 % 0-0 Nucleated Red Blood Cell % [place] ([facility]) lymph # 2.1 10 1.5-5.0 Lymph # [place] ([facility]) neutrophils # 2.8 10 1.5-8.5 Neutrophils # [place] ( [facility]) mono # 0.6 10 0.0-0.8 [place] # [facility] ([facility]) baso # 0.1 10 0.0-0.2 Baso # [facility] ([facility]) eos # 0.6 10 0.0-0.5 Above high normal Eos # [place] ([facility]) ID Date Data Source [id number] 12/12/2020 05:16:00 PM EDT [place] ([facility]) Name Value Range Interpretation Code Description Data Whit rce(s) Supporting Document(s) nt-pro BNP 25 pg/mL <125 Nt-pro BNP [place] ([facility]) ID Date Data Source [id number] 12/12/2020 05:16:00 PM EDT [facility]) Name Value Range Interpretation Code Description Data Whit rce(s) Supporting Document(s) blood urea nitrogen 12 mg/dL 7-18 Blood Urea Nitro gen [place] ([facility]) glucose, fasting 181 mg/dL 70-100 Above high normal Glucose, Fas ting [place] ([facility]) sodium level 137 mEq/L 136-145 Sodium Level [place] (No [facility]) glomerular filtration rate > 60.0 >56 Glomerula r Filtration Rate [place] ([facility]) creatinine for GFR 0.78 mg/dL 0.70-1.30 Creatinine for GF R [place] ([facility]) potassium serum 4.4 mEq/L 3.5-5.1 Potassium Serum [place] NA ([facility]) calcium level 9.0 mg/dL 8.5-10.1 Calcium Level [place] ( [facility]) chloride level 102 mEq/L 98-107 Chloride Level [place] ([facility]) anion gap 7 mEq/L 8-16 Below low normal Anion Gap [place] ( [facility]) carbon dioxide level 28 mEq/L 21-32 Carbon Dioxide Level [place] ([facility]) alkaline phosphatase 84 U/L 45-117 Alkaline Phosph atase [place] ([facility]) ALT/SGPT 31 U/L 12-78 ALT/SGPT [place] ([facility]) total protein 6.6 gm/dL 6.4-8.2 Total Protein [place] ( [facility]) bilirubin,total 0.3 mg/dL 0.2-1.0 Bilirubin,total [place] ([facility]) AST/SGOT 15 U/L 7-37 AST/SGOT [place] ([facility]) albumin 3.7 gm/dL 3.2-5.2 Albumin [place] ([facility]) albumin/globulin ratio Albumin/globu trish Ratio [place] ([facility]) ID Date Data Source [id number] 12/12/2020 05:16:00 PM EDT [place] ([facility]) Name Value Range Interpretation Code Description Data Whit rce(s) Supporting Document(s) white blood count 6.3 10 4.0-10.0 White Blood Count [place] ([facility]) red blood count 4.57 10 4.30-6.10 Red Blood Count [place] NA ([facility]) hemoglobin 14.1 g/dL 13.5-17.5 Hemoglobin [place] ([facility]) mean corpuscular volume 93.4 fL 80.0-96.0 Mean Corpusc ular Volume [place] ([facility]) hematocrit 42.7 % 42.0-52.0 Hematocrit [place] ([facility]) platelet count, automated 231 10 150-450 Platelet C ount, Automated [place] ([facility]) red cell distribution width 13.3 % 11.5-14.5 Red Cell Distribution Width [place] ([facility]) mean corpuscular HGB conc 33.0 g/dL 32.0-36.5 Mean Corpu scular HGB Conc [place] ([facility]) mean corpuscular hemoglobin 30.9 pg 27.0-33.0 Mean Cor puscular Hemoglobin [place] ([facility]) lymph % 33.7 % 24.0-44.0 Lymph % [place] ([facility]) neutrophils % 44.7 % 36.0-66.0 Neutrophils % [place] ( [facility]) mono % 9.7 % 2.0-8.0 Above high normal [place] % [place] ([facility]) baso % 2.1 % 0.0-1.0 Above high normal Baso % [place] ([facility]) nucleated red blood cell % 0.0 % 0-0 Nucleated Red Blood Cell % [place] ([facility]) eos % 8.7 % 0.0-3.0 Above high normal Eos % [place] ([facility]) immature granulocyte % 1.1 % 0-3.0 Immature Gran ulocyte % [place] ([facility]) lymph # 2.1 10 1.5-5.0 Lymph # [place] ([facility]) eos # 0.6 10 0.0-0.5 Above high normal Eos # [place] ([facility]) neutrophils # 2.8 10 1.5-8.5 Neutrophils # [place] ( [facility]) mono # 0.6 10 0.0-0.8 [place] # [facility] ([facility]) baso # 0.1 10 0.0-0.2 Baso # [facility] ([facility]) ID Date Data Source [id number] 12/12/2020 05:16:00 PM EDT [place] ([facility]) Name Value Range Interpretation Code Description Data Whit rce(s) Supporting Document(s) nt-pro BNP 25 pg/mL <125 Nt-pro BNP [place] ([facility]) ID Date Data Source [id number] 12/12/2020 05:16:00 PM EDT [place] ([facility]) Name Value Range Interpretation Code Description Data Whit rce(s) Supporting Document(s) creatinine for GFR 0.78 mg/dL 0.70-1.30 Creatinine for GF R [place] ([facility]) glomerular filtration rate > 60.0 >56 Glomerula r Filtration Rate [place] ([facility]) glucose, fasting 181 mg/dL 70-100 Above high normal Glucose, Fas ting [place] ([facility]) blood urea nitrogen 12 mg/dL 7-18 Blood Urea Nitro gen [place] ([facility]) carbon dioxide level 28 mEq/L 21-32 Carbon Dioxide Level [place] ([facility]) chloride level 102 mEq/L 98-107 Chloride Level [place] ([facility]) potassium serum 4.4 mEq/L 3.5-5.1 Potassium Serum [place] NA ([facility]) sodium level 137 mEq/L 136-145 Sodium Level [facility] ([facility]) AST/SGOT 15 U/L 7-37 AST/SGOT [place] ([facility]) anion gap 7 mEq/L 8-16 Below low normal Anion Gap [place] ( [facility]) ALT/SGPT 31 U/L 12-78 ALT/SGPT [place] ([facility]) alkaline phosphatase 84 U/L 45-117 Alkaline Phosph atase [place] ([facility]) calcium level 9.0 mg/dL 8.5-10.1 Calcium Level [place] ( [facility]) albumin/globulin ratio Albumin/globu trish Ratio [place] ([facility]) bilirubin,total 0.3 mg/dL 0.2-1.0 Bilirubin,total ATHE NA ([facility]) albumin 3.7 gm/dL 3.2-5.2 Albumin [place] ([facility]) total protein 6.6 gm/dL 6.4-8.2 Total Protein [place] ( [facility]) ID Date Data Source [id number] 12/12/2020 05:16:00 PM EDT [place] ([facility]) Name Value Range Interpretation Code Description Data Whit rce(s) Supporting Document(s) white blood count 6.3 10 4.0-10.0 White Blood Count [place] ([facility]) hemoglobin 14.1 g/dL 13.5-17.5 Hemoglobin [place] ([facility]) red blood count 4.57 10 4.30-6.10 Red Blood Count [place] NA ([facility]) mean corpuscular volume 93.4 fL 80.0-96.0 Mean Corpusc ular Volume [place] ([facility]) mean corpuscular hemoglobin 30.9 pg 27.0-33.0 Mean Cor puscular Hemoglobin [place] ([facility]) hematocrit 42.7 % 42.0-52.0 Hematocrit [place] ([facility]) mean corpuscular HGB conc 33.0 g/dL 32.0-36.5 Mean Corpu scular HGB Conc [place] ([facility]) neutrophils % 44.7 % 36.0-66.0 Neutrophils % [place] ( [facility]) platelet count, automated 231 10 150-450 Platelet C ount, Automated [place] ([facility]) red cell distribution width 13.3 % 11.5-14.5 Red Cell Distribution Width [place] ([facility]) eos % 8.7 % 0.0-3.0 Above high normal Eos % [place] ([facility]) baso % 2.1 % 0.0-1.0 Above high normal Baso % [place] ([facility]) lymph % 33.7 % 24.0-44.0 Lymph % [place] ([facility]) mono % 9.7 % 2.0-8.0 Above high normal [place] % [place] ([facility]) nucleated red blood cell % 0.0 % 0-0 Nucleated Red Blood Cell % [place] ([facility]) immature granulocyte % 1.1 % 0-3.0 Immature Gran ulocyte % [place] ([facility]) lymph # 2.1 10 1.5-5.0 Lymph # [place] ([facility]) neutrophils # 2.8 10 1.5-8.5 Neutrophils # [place] ( [facility]) baso # 0.1 10 0.0-0.2 Baso # [place] ([facility]) mono # 0.6 10 0.0-0.8 [place] # [place] ([facility]) eos # 0.6 10 0.0-0.5 Above high normal Eos # [place] ([facility]) ID Date Data Source [id number] 12/12/2020 05:16:00 PM EDT [place] ([facility]) Name Value Range Interpretation Code Description Data Whit rce(s) Supporting Document(s) nt-pro BNP 25 pg/mL <125 Nt-pro BNP [place] ([facility]) ID Date Data Source [id number] 12/12/2020 05:16:00 PM EDT [place] ([facility]) Name Value Range Interpretation Code Description Data Whit rce(s) Supporting Document(s) glucose, fasting 181 mg/dL 70-100 Above high normal Glucose, Fas ting [place] ([facility]) glomerular filtration rate > 60.0 >56 Glomerula r Filtration Rate [place] ([facility]) sodium level 137 mEq/L 136-145 Sodium Level [place] (No [facility]) creatinine for GFR 0.78 mg/dL 0.70-1.30 Creatinine for GF R [place] ([facility]) blood urea nitrogen 12 mg/dL 7-18 Blood Urea Nitro gen [place] ([facility]) potassium serum 4.4 mEq/L 3.5-5.1 Potassium Serum [place] NA ([facility]) anion gap 7 mEq/L 8-16 Below low normal Anion Gap [place] ( [facility]) chloride level 102 mEq/L 98-107 Chloride Level [place] ([facility]) carbon dioxide level 28 mEq/L 21-32 Carbon Dioxide Level [place] ([facility]) calcium level 9.0 mg/dL 8.5-10.1 Calcium Level [place] ( [facility]) ALT/SGPT 31 U/L 12-78 ALT/SGPT [place] ([facility]) AST/SGOT 15 U/L 7-37 AST/SGOT [place] ([facility]) alkaline phosphatase 84 U/L 45-117 Alkaline Phosph atase [place] ([facility]) total protein 6.6 gm/dL 6.4-8.2 Total Protein [place] ( [facility]) albumin 3.7 gm/dL 3.2-5.2 Albumin [place] ([facility]) albumin/globulin ratio Albumin/globu trish Ratio [place] ([facility]) bilirubin,total 0.3 mg/dL 0.2-1.0 Bilirubin,total ATHE NA ([facility]) ID Date Data Source [id number] 12/12/2020 05:16:00 PM EDT [place] ([facility]) Name Value Range Interpretation Code Description Data Whit rce(s) Supporting Document(s) white blood count 6.3 10 4.0-10.0 White Blood Count JOV[place] ([facility]) red blood count 4.57 10 4.30-6.10 Red Blood Count ATHE ([facility]) hematocrit 42.7 % 42.0-52.0 Hematocrit [facility] ([facility]) hemoglobin 14.1 g/dL 13.5-17.5 Hemoglobin [facility] ([facility]) mean corpuscular volume 93.4 fL 80.0-96.0 Mean Corpusc ular Volume [facility] ([facility]) red cell distribution width 13.3 % 11.5-14.5 Red Cell Distribution Width [facility] ([facility]) mean corpuscular HGB conc 33.0 g/dL 32.0-36.5 Mean Corpu scular HGB Conc J[facility] ([facility]) mean corpuscular hemoglobin 30.9 pg 27.0-33.0 Mean Cor puscular Hemoglobin J[facility] ([facility]) lymph % 33.7 % 24.0-44.0 Lymph % JOVON ([facility]) neutrophils % 44.7 % 36.0-66.0 Neutrophils % [place] ( [facility]) mono % 9.7 % 2.0-8.0 Above high normal [place] % [place] ([facility]) platelet count, automated 231 10 150-450 Platelet C ount, Automated [place] ([facility]) nucleated red blood cell % 0.0 % 0-0 Nucleated Red Blood Cell % [place] ([facility]) eos % 8.7 % 0.0-3.0 Above high normal Eos % [place] ([facility]) immature granulocyte % 1.1 % 0-3.0 Immature Gran ulocyte % [place] ([facility]) baso % 2.1 % 0.0-1.0 Above high normal Baso % [place] ([facility]) mono # 0.6 10 0.0-0.8 [place] # [place] ([facility]) neutrophils # 2.8 10 1.5-8.5 Neutrophils # [place]OV[place] ( [facility]) lymph # 2.1 10 1.5-5.0 Lymph # [place] ([facility]) eos # 0.6 10 0.0-0.5 Above high normal [place] # [place] ([facility]) baso # 0.1 10 0.0-0.2 Baso # [place] ([facility]) ID Date Data Source [id number] 12/12/2020 05:16:00 PM EDT [place] ([facility]) Name Value Range Interpretation Code Description Data Whit rce(s) Supporting Document(s) nt-pro BNP 25 pg/mL <125 Nt-pro BNP [place] ([facility]) ID Date Data Source [id number] 12/12/2020 05:16:00 PM EDT [facility] ([facility]) Name Value Range Interpretation Code Description Data Whit rce(s) Supporting Document(s) glucose, fasting 181 mg/dL 70-100 Above high normal Glucose, Fas ting J[facility] ([facility]) glomerular filtration rate > 60.0 >56 Glomerula r Filtration Rate [place] ([facility]) blood urea nitrogen 12 mg/dL 7-18 Blood Urea Nitro gen [place] ([facility]) creatinine for GFR 0.78 mg/dL 0.70-1.30 Creatinine for GF R [place] ([facility]) anion gap 7 mEq/L 8-16 Below low normal Anion Gap [place] ( [facility]) potassium serum 4.4 mEq/L 3.5-5.1 Potassium Serum ATHE NA ([facility]) chloride level 102 mEq/L 98-107 Chloride Level J[facility] ([facility]) carbon dioxide level 28 mEq/L 21-32 Carbon Dioxide Level [facility] ([facility]) sodium level 137 mEq/L 136-145 Sodium Level [facility] (No [facility]) AST/SGOT 15 U/L 7-37 AST/SGOT [facility] ([facility]) ALT/SGPT 31 U/L 12-78 ALT/SGPT [place] ([facility]) calcium level 9.0 mg/dL 8.5-10.1 Calcium Level J[place] ( [facility]) alkaline phosphatase 84 U/L 45-117 Alkaline Phosph atase [facility] ([facility]) albumin/globulin ratio Albumin/globu trish Ratio [place] ([facility]) total protein 6.6 gm/dL 6.4-8.2 Total Protein [place] ( [facility]) bilirubin,total 0.3 mg/dL 0.2-1.0 Bilirubin,total ATHE NA ([facility]) albumin 3.7 gm/dL 3.2-5.2 Albumin [facility] ([facility]) ID Date Data Source [id number] 12/12/2020 05:16:00 PM EDT [facility] ([facility]) Name Value Range Interpretation Code Description Data Whit rce(s) Supporting Document(s) white blood count 6.3 10 4.0-10.0 White Blood Count [facility] ([facility]) red blood count 4.57 10 4.30-6.10 Red Blood Count ATHE NA ([facility]) hemoglobin 14.1 g/dL 13.5-17.5 Hemoglobin [facility] ([facility]) hematocrit 42.7 % 42.0-52.0 Hematocrit [place] ([facility]) mean corpuscular hemoglobin 30.9 pg 27.0-33.0 Mean Cor puscular Hemoglobin [place] ([facility]) mean corpuscular volume 93.4 fL 80.0-96.0 Mean Corpusc ular Volume [place] ([facility]) mean corpuscular HGB conc 33.0 g/dL 32.0-36.5 Mean Corpu scular HGB Conc [facility] ([facility]) red cell distribution width 13.3 % 11.5-14.5 Red Cell Distribution Width [place] ([facility]) platelet count, automated 231 10 150-450 Platelet C ount, Automated [place] ([facility]) lymph % 33.7 % 24.0-44.0 Lymph % [place] ([facility]) eos % 8.7 % 0.0-3.0 Above high normal Eos % [place] ([facility]) neutrophils % 44.7 % 36.0-66.0 Neutrophils % [place] ( [facility]) mono % 9.7 % 2.0-8.0 Above high normal [place] % J[facility] ([facility]) neutrophils # 2.8 10 1.5-8.5 Neutrophils # [place] ( [facility]) nucleated red blood cell % 0.0 % 0-0 Nucleated Red Blood Cell % [place] ([facility]) baso % 2.1 % 0.0-1.0 Above high normal Baso % [place] ([facility]) immature granulocyte % 1.1 % 0-3.0 Immature Gran ulocyte % [place] ([facility]) mono # 0.6 10 0.0-0.8 [place] # [place] ([facility]) lymph # 2.1 10 1.5-5.0 Lymph # [place] ([facility]) eos # 0.6 10 0.0-0.5 Above high normal Eos # [place] ([facility]) baso # 0.1 10 0.0-0.2 Baso # [facility] ([facility]) ID Date Data Source [id number] 11/05/2020 10:08:00 AM EST [facility] ([facility]) Name Value Range Interpretation Code Description Data Whit rce(s) Supporting Document(s) [facility] pathology study [facility] FINAL DIAGNOSIS Biopsy below Z-line: Intestinal metaplasia, negative for dysplasia. Squamocolumnar junction mucosa with mild chronic inflammation. 11/06/2020 - 112 CLINICAL DIAGNOSIS H/O intestinal metaplasia 11/05/20201403 GROSS DIAGNOSIS Received in formalin labeled "biopsy below Z line" is a 0.8 x 0.2 x 0.2 cm. aggregate of mucosal fragments. All in one. - 11/05/20201403 Signed Wilfredo Mcclendon MD 11/06/2020 1226 ID Date Data Source [id number] 10/31/2020 12:00:00 PM EST [facility] Name Value Range Interpretation Code Description Data Whit rce(s) Supporting Document(s) SARS coronavirus 2 [facility] Not [facility]ed [facility] This lab was ordered by [facility] and reported by [facility]. ID Date Data Source [id number] 10/11/2020 12:00:00 AM EST [facility] Name Value Range Interpretation Code Description Data Whit rce(s) Supporting Document(s) SARS coronavirus 2 Ag Negative [facility] This lab was ordered by [facility] and reported by [facility]. ID Date Data Source [id number] 09/24/2020 02:54:00 PM EST [facility] ([facility]) Name Value Range Interpretation Code Description Data Whit rce(s) Supporting Document(s) Testosterone [Mass/volume] in Serum or Plasma 15 ng/dL [id number] [facility] ([facility]) NORMAL RANGES ARE FOR ADULT FEMALES (OVE R 15 YRS) AND MALES (OVER 19 YRS). FOR PEDIATRIC RANGES PLE ASE CONSULT LITERATURE. Follitropin [Units/volume] in Serum or Plasma 0.8 mIU/mL 1.4-18.1 [facility] ([facility]) Lutropin [Moles/volume] in Serum or Plasma 0.1 mIU/mL 1.5-9.3 [facility] ([facility]) ID Date Data Source [id number] 09/24/2020 02:54:00 PM EST [facility] ([facility]) Name Value Range Interpretation Code Description Data Whit rce(s) Supporting Document(s) Glucose, Fasting 246 mg/dL 70-100 [facility] ([facility]) Blood Urea Nitrogen 17 mg/dL 7-18 [facility] (No [facility]) Creatinine For GFR 0.96 mg/dL 0.70-1.30 [facility] ([facility]) Glomerular Filtration Rate Laboratory test result [facility] ([facility]) <content>Units are mL/min/1.73 m2</content>
<content></content>
<content>Chronic Kidney Disease Staging per NKF:</content>
<content></content>
<content>Stage I & II GFR >=60 Normal to Mildly Decreased</content>
<content>Stage III GFR 30- 59 Moderately Decreased</content>
<content>Stage IV GFR 15-29 Severely Decreased</content>
<content>Stage V GFR <15 Very Little GFR Left</content>
<content>ESRD GFR <15 on INFECTION CONTROL COORDINATOR</content>
<content></content> Sodium Level 137 meq/L 136-145 MED[facility] ([facility]) Chloride Level 104 meq/L 98-107 [facility] ([facility]) Potassium Serum 4.3 meq/L 3.5-5.1 [facility] ([facility]) Carbon Dioxide Level 28 meq/L 21-32 [facility]) Anion Gap 5 meq/L 8-16 [facility]) Calcium Level 8.6 mg/dL 8.5-10.1 [facility] ([facility]) ID Date Data Source [id number] 09/24/2020 02:54:00 PM EST [facility] ([facility]) Name Value Range Interpretation Code Description Data Whit rce(s) Supporting Document(s) Laboratory test finding (navigational concept) 235 pg/mL 15-65 [facility] ([facility]) Estradiol 83.5 pg/mL 7.6-42.6 [facility] ([facility]) [place] ECLIA methodology Performed at: [facility] [id number] Radio Aerial Installer: Marlys Jin MD, Phone: [phone] Performed at: [facility] [address] [id number] Radio Aerial Installer: Gladis Paul MD, Phone: [phone] ID Date Data Source [id number] 09/24/2020 02:54:00 PM EST MED[facility] ([facility]) Name Value Range Interpretation Code Description Data Whit rce(s) Supporting Document(s) Thyrotropin [Units/volume] in Serum or Plasma 1.420 uIU/ML 0.358-3.74 0 [facility] ([facility]) Thyroxine (T4) free [Mass/volume] in Serum or Plasma 1.26 ng/dL 0.76- 1.46 [facility] ([facility]) ID Date Data Source [id number] 09/20/2020 02:59:00 PM EST MED[facility] ([facility]) Name Value Range Interpretation Code Description Data Whit rce(s) Supporting Document(s) Hemoglobin A1c/Hemoglobin.total in Blood 8.3 [facility] ([facility]) Glucose [Mass/volume] in Serum or Plasma 168 [facility] ([facility]) Procedure Social History Code Duration Value Status Description Data Source(s ) Smoking 07/22/2021 12:00:00 AM EDT Patient is a former smoker completed Patient is a former smoker [facility] ([facility]) Smoking 05/29/2021 12:00:00 AM EDT Patient is a former smoker completed Patient is a former smoker [facility] ([facility], ) Smoking 04/15/2021 12:00:00 AM EDT Never smoker completed Never s moker [facility] ([facility]) Alcohol intake 03/06/2021 12:00:00 AM EDT Current non-d lauren of alcohol (finding) completed Current non-drinker of alcohol (finding) [facility] Tobacco use and exposure 03/06/2021 12:00:00 AM EDT Never used co mpleted Never used [facility] Cigarette pack-years 03/06/2021 12:00:00 AM EDT UNK completed [facility] Cigarettes smoked current (pack per day) - Reported 03/06/20 12:00:00 AM EDT UNK completed [facility] Smoking 03/06/2021 12:00:00 AM EDT Former smoker completed Former smoker [facility] Alcohol intake 02/19/2021 12:00:00 AM EDT Current non-d lauren of alcohol (finding) completed Current non-drinker of alcohol (finding) [facility] Alcohol intake 01/28/2021 12:00:00 AM EDT Current non-d lauren of alcohol (finding) completed Current non-drinker of alcohol (finding) [facility] Smoking 10/11/2020 12:00:00 AM EST Patient is a former smoker completed Patient is a former smoker [facility] ([facility]) Alcohol intake 10/10/2020 12:00:00 AM EST Current non-d lauren of alcohol (finding) completed Current non-drinker of alcohol (finding) [facility] Vital Signs ID Date Data Source [id number] Name Value Range Interpretation Code Description Data Source(s) Oxygen saturation in Arterial blood by Pulse oximetry 97 % 97 % [facility] Body mass index (BMI) [Ratio] 29.4 kg/m2 29.4 k g/m2 [facility] ([facility] ) Body weight 205.25 [lb_av] 205.25 [lb_av] MEDEN T ([facility] ) Systolic blood pressure 118 mm[Hg] 118 mm[Hg] M EDENT ([facility] ) Diastolic blood pressure 64 mm[Hg] 64 mm[Hg] [facility] ([facility]) Heart rate 91 /min 91 /min [facility] ([facility] ) Body height 70 [in_i] 70 [in_i] [facility] ([facility] ) 5'10" Diastolic blood pressure 69 mm[Hg] 69 mm[Hg] JOVON ([facility]) Body height 72 [in_i] 72 [in_i] [place] ([facility]) Body mass index (BMI) [Ratio] 30 kg/m2 30 kg/ m2 [facility] ([facility]) Systolic blood pressure 109 mm[Hg] 109 mm[Hg] A THENA ([facility]) Body weight 3538 [oz_av] 3538 [oz_av] [facility] ([facility]) Diastolic blood pressure 69 mm[Hg] 69 mm[Hg] [facility] ([facility]) Body height 72 [in_i] 72 [in_i] [place] ([facility]) Body mass index (BMI) [Ratio] 30 kg/m2 30 kg/ m2 [place] ([facility]) Systolic blood pressure 109 mm[Hg] 109 mm[Hg] A THENA ([facility]) Body weight 3538 [oz_av] 3538 [oz_av] [place] ([facility]) Systolic blood pressure 110 mm[Hg] 110 mm[Hg] M EDSUNI ([facility], ) Diastolic blood pressure 60 mm[Hg] 60 mm[Hg] MEDENT ([facility], ) Heart rate 65 /min 65 /min [facility] ([facility], ) Oxygen saturation in Arterial blood by Pulse oximetry 97 % 97 % [facility] Body height 71 [in_i] 71 [in_i] MED[facility] ([facility], ) 5'11" Body weight 223.00 [lb_av] 223.00 [lb_av] MEDEN T ([facility], ) Body mass index (BMI) [Ratio] 31.1 kg/m2 31.1 k g/m2 MED[facility] ([facility], ) [place] body weight 172 [lb_av] 172 [lb_av] [facility] Body weight 101.153 kg 101.153 kg [facility] ([facility]) Body surface area Derived from formula 2.21 m2 2.21 m2 [facility] ([facility]) Body weight 220.00 [lb_av] 220.00 [lb_av] MEDEN T ([facility]) Systolic blood pressure 100 mm[Hg] 100 mm[Hg] [facility] ([facility]) Diastolic blood pressure 70 mm[Hg] 70 mm[Hg] [facility] ([facility]) Heart rate 70 /min 70 /min [facility] ([facility]) Oxygen saturation in Arterial blood by Pulse oximetry 95 % 95 % [facility] ([facility]) Room Air Body weight 99.792 kg 99.792 kg [facility] ([facility]) Oxygen saturation in Arterial blood by Pulse oximetry 97 % 97 % [facility] ([facility]) Room Air Heart rate 79 /min 79 /min [facility] ([facility]) Body weight 221.00 [lb_av] 221.00 [lb_av] MEDEN T ([facility]) Body weight 100.246 kg 100.246 kg [facility] ([facility]) Systolic blood pressure 108 mm[Hg] 108 mm[Hg] [facility] ([facility]) Diastolic blood pressure 70 mm[Hg] 70 mm[Hg] [facility] ([facility]) Heart rate 69 /min 69 /min [facility] ([facility]) Systolic blood pressure 115 mm[Hg] 115 mm[Hg] [facility] Body temperature 97.7 [degF] 97.7 [degF] [facility] ([facility]) Body height 70 [in_i] 70 [in_i] [facility] ([facility]) 5'10" Body weight 220.00 [lb_av] 220.00 [lb_av] MEDEN T ([facility]) Diastolic blood pressure 75 mm[Hg] 75 mm[Hg] [facility] ([facility]) Body mass index (BMI) [Ratio] 31.6 kg/m2 31.6 k g/m2 [facility] ([facility]) Oxygen saturation in Arterial blood by Pulse oximetry 92 % 92 % [facility] ([facility]) Diastolic blood pressure 78 mm[Hg] 78 mm[Hg] [facility] ([facility]) Body height 72 [in_i] 72 [in_i] [facility] ([facility]) Body mass index (BMI) [Ratio] 30.1 kg/m2 30.1 k g/m2 [facility] ([facility]) Systolic blood pressure 128 mm[Hg] 128 mm[Hg] [facility] ([facility]) Body weight 3556 [oz_av] 3556 [oz_av] [facility] ([facility]) Diastolic blood pressure 78 mm[Hg] 78 mm[Hg] [facility] ([facility]) Body height 72 [in_i] 72 [in_i] [facility] ([facility]) Body mass index (BMI) [Ratio] 30.1 kg/m2 30.1 k g/m2 [facility] ([facility]) Systolic blood pressure 128 mm[Hg] 128 mm[Hg] A [facility] ([facility]) Body weight 3556 [oz_av] 3556 [oz_av] [facility] ([facility]) Body height 72 [in_i] 72 [in_i] [facility] ([facility]) Body mass index (BMI) [Ratio] 30.1 kg/m2 30.1 k g/m2 [facility] ([facility]) Systolic blood pressure 128 mm[Hg] 128 mm[Hg] A THENA ([facility]) Body weight 3556 [oz_av] 3556 [oz_av] [facility] ([facility]) Diastolic blood pressure 78 mm[Hg] 78 mm[Hg] [facility] ([facility]) Diastolic blood pressure 66 mm[Hg] 66 mm[Hg] [facility] ([facility]) Body height 72 [in_i] 72 [in_i] [facility] ([facility]) Body mass index (BMI) [Ratio] 30.4 kg/m2 30.4 k g/m2 [facility] ([facility]) Systolic blood pressure 101 mm[Hg] 101 mm[Hg] A [facility] ([facility]) Body weight 3590.4 [oz_av] 3590.4 [oz_av] ATHEN A ([facility]) Diastolic blood pressure 66 mm[Hg] 66 mm[Hg] [facility] ([facility]) Body height 72 [in_i] 72 [in_i] [facility] ([facility]) Body mass index (BMI) [Ratio] 30.4 kg/m2 30.4 k g/m2 [facility] ([facility]) Systolic blood pressure 101 mm[Hg] 101 mm[Hg] [facility] Body weight 3590.4 [oz_av] 3590.4 [oz_av] ATHEN A ([facility]) Diastolic blood pressure 66 mm[Hg] 66 mm[Hg] [facility] ([facility]) Body height 72 [in_i] 72 [in_i] [place] ([facility]) Body mass index (BMI) [Ratio] 30.4 kg/m2 30.4 k g/m2 [facility] ([facility]) Systolic blood pressure 101 mm[Hg] 101 mm[Hg] [facility] Body weight 3590.4 [oz_av] 3590.4 [oz_av] ATHEN A ([facility]) Diastolic blood pressure 66 mm[Hg] 66 mm[Hg] [facility] ([facility]) Body height 72 [in_i] 72 [in_i] [facility] ([facility]) Body mass index (BMI) [Ratio] 30.4 kg/m2 30.4 k g/m2 [facility] ([facility]) Systolic blood pressure 101 mm[Hg] 101 mm[Hg] A THENA ([facility]) Body weight 3590.4 [oz_av] 3590.4 [oz_av] ATHEN A ([facility]) Systolic blood pressure 112 mm[Hg] 112 mm[Hg] [facility] Diastolic blood pressure 72 mm[Hg] 72 mm[Hg] [facility] ([facility]) Body height 72 [in_i] 72 [in_i] [facility] ([facility]) Body mass index (BMI) [Ratio] 30.8 kg/m2 30.8 k g/m2 [facility] ([facility]) Body weight 3636 [oz_av] 3636 [oz_av] [facility] ([facility]) Body weight 3636 [oz_av] 3636 [oz_av] [facility] ([facility]) Diastolic blood pressure 72 mm[Hg] 72 mm[Hg] [facility] ([facility]) Body height 72 [in_i] 72 [in_i] [facility] ([facility]) Body mass index (BMI) [Ratio] 30.8 kg/m2 30.8 k g/m2 [facility] ([facility]) Systolic blood pressure 112 mm[Hg] 112 mm[Hg] [facility] Diastolic blood pressure 72 mm[Hg] 72 mm[Hg] [facility] ([facility]) Body height 72 [in_i] 72 [in_i] [facility] ([facility]) Body mass index (BMI) [Ratio] 30.8 kg/m2 30.8 k g/m2 [facility] ([facility]) Systolic blood pressure 112 mm[Hg] 112 mm[Hg] A THENA ([facility]) Body weight 3636 [oz_av] 3636 [oz_av] [facility] ([facility]) Diastolic blood pressure 72 mm[Hg] 72 mm[Hg] [facility] ([facility]) Body height 72 [in_i] 72 [in_i] [facility] ([facility]) Body mass index (BMI) [Ratio] 30.8 kg/m2 30.8 k g/m2 [facility] ([facility]) Systolic blood pressure 112 mm[Hg] 112 mm[Hg] A THENA ([facility]) Body weight 3636 [oz_av] 3636 [oz_av] [facility] ([facility]) Diastolic blood pressure 72 mm[Hg] 72 mm[Hg] [facility] ([facility]) Body height 72 [in_i] 72 [in_i] [facility] ([facility]) Body mass index (BMI) [Ratio] 30.8 kg/m2 30.8 k g/m2 [facility] ([facility]) Systolic blood pressure 112 mm[Hg] 112 mm[Hg] A THENA ([facility]) Body weight 3636 [oz_av] 3636 [oz_av] [facility] ([facility]) Systolic blood pressure 132 mm[Hg] 132 mm[Hg] A THENA ([facility]) Diastolic blood pressure 80 mm[Hg] 80 mm[Hg] [facility] ([facility]) Body weight 3606.4 [oz_av] 3606.4 [oz_av] ATHEN A ([facility]) Body height 72 [in_i] 72 [in_i] [facility] ([facility]) Body mass index (BMI) [Ratio] 30.6 kg/m2 30.6 k g/m2 [facility] ([facility]) Diastolic blood pressure 80 mm[Hg] 80 mm[Hg] [facility] ([facility]) Body height 72 [in_i] 72 [in_i] [facility] ([facility]) Body mass index (BMI) [Ratio] 30.6 kg/m2 30.6 k g/m2 [facility] ([facility]) Systolic blood pressure 132 mm[Hg] 132 mm[Hg] A THENA ([facility]) Body weight 3606.4 [oz_av] 3606.4 [oz_av] ATHEN A ([facility]) Diastolic blood pressure 80 mm[Hg] 80 mm[Hg] [facility] ([facility]) Body height 72 [in_i] 72 [in_i] [facility] ([facility]) Body mass index (BMI) [Ratio] 30.6 kg/m2 30.6 k g/m2 [facility] ([facility]) Systolic blood pressure 132 mm[Hg] 132 mm[Hg] A THENA ([facility]) Body weight 3606.4 [oz_av] 3606.4 [oz_av] ATHEN A ([facility]) Diastolic blood pressure 80 mm[Hg] 80 mm[Hg] [facility] ([facility]) Body height 72 [in_i] 72 [in_i] [facility] ([facility]) Body mass index (BMI) [Ratio] 30.6 kg/m2 30.6 k g/m2 [facility] ([facility]) Systolic blood pressure 132 mm[Hg] 132 mm[Hg] A THENA ([facility]) Body weight 3606.4 [oz_av] 3606.4 [oz_av] ATHEN A ([facility]) Diastolic blood pressure 80 mm[Hg] 80 mm[Hg] JOVON ([facility]) Body height 72 [in_i] 72 [in_i] JOVON ([facility]) Body mass index (BMI) [Ratio] 30.6 kg/m2 30.6 k g/m2 JOVON ([facility]) Systolic blood pressure 132 mm[Hg] 132 mm[Hg] A THENA ([facility]) Body weight 3606.4 [oz_av] 3606.4 [oz_av] ATHEN A ([facility]) Diastolic blood pressure 80 mm[Hg] 80 mm[Hg] JOVON ([facility]) Body height 72 [in_i] 72 [in_i] JOVON ([facility]) Body mass index (BMI) [Ratio] 30.6 kg/m2 30.6 k g/m2 JOVON ([facility]) Systolic blood pressure 132 mm[Hg] 132 mm[Hg] A THENA ([facility]) Body weight 3606.4 [oz_av] 3606.4 [oz_av] ATHEN A ([facility]) Oxygen saturation in Arterial blood by Pulse oximetry 93 % 93 % MEDENT ([facility] ) Body mass index (BMI) [Ratio] 31.9 kg/m2 31.9 k g/m2 MEDENT ([facility] ) Heart rate 72 /min 72 /min [facility] ([facility] ) Body height 70 [in_i] 70 [in_i] MEDENT ([facility] ) 5'10" Body weight 222.25 [lb_av] 222.25 [lb_av] MEDEN T ([facility] ) Systolic blood pressure 112 mm[Hg] 112 mm[Hg] M EDENT ([facility] ) Diastolic blood pressure 68 mm[Hg] 68 mm[Hg] MEDENT ([facility] ) Body temperature 97.3 [degF] 97.3 [degF] MEDENT ([facility] ) Diastolic blood pressure 68 mm[Hg] 68 mm[Hg] JOVON ([facility]) Body weight 3593.6 [oz_av] 3593.6 [oz_av] ATHEN A ([facility]) Body height 72 [in_i] 72 [in_i] JOVON ([facility]) Body mass index (BMI) [Ratio] 30.5 kg/m2 30.5 k g/m2 JOVON ([facility]) Systolic blood pressure 100 mm[Hg] 100 mm[Hg] A [facility] ([facility]) Diastolic blood pressure 68 mm[Hg] 68 mm[Hg] JOVON ([facility]) Body height 72 [in_i] 72 [in_i] JOVON ([facility]) Body mass index (BMI) [Ratio] 30.5 kg/m2 30.5 k g/m2 JOVON ([facility]) Systolic blood pressure 100 mm[Hg] 100 mm[Hg] [facility] Body weight 3593.6 [oz_av] 3593.6 [oz_av] ATHEN A ([facility]) Diastolic blood pressure 68 mm[Hg] 68 mm[Hg] JOVON ([facility]) Body height 72 [in_i] 72 [in_i] JOVON ([facility]) Body mass index (BMI) [Ratio] 30.5 kg/m2 30.5 k g/m2 JOVON ([facility]) Systolic blood pressure 100 mm[Hg] 100 mm[Hg] A THENA ([facility]) Body weight 3593.6 [oz_av] 3593.6 [oz_av] ATHEN A ([facility]) Diastolic blood pressure 68 mm[Hg] 68 mm[Hg] JOVON ([facility]) Body height 72 [in_i] 72 [in_i] JOVON ([facility]) Body mass index (BMI) [Ratio] 30.5 kg/m2 30.5 k g/m2 JOVON ([facility]) Systolic blood pressure 100 mm[Hg] 100 mm[Hg] A THENA ([facility]) Body weight 3593.6 [oz_av] 3593.6 [oz_av] ATHEN A ([facility]) Diastolic blood pressure 68 mm[Hg] 68 mm[Hg] JOVON ([facility]) Body height 72 [in_i] 72 [in_i] JOVON ([facility]) Body mass index (BMI) [Ratio] 30.5 kg/m2 30.5 k g/m2 JOVON ([facility]) Systolic blood pressure 100 mm[Hg] 100 mm[Hg] A [facility] ([facility]) Body weight 3593.6 [oz_av] 3593.6 [oz_av] ATHEN A ([facility]) Diastolic blood pressure 68 mm[Hg] 68 mm[Hg] JOVON ([facility]) Body height 72 [in_i] 72 [in_i] JOVON ([facility]) Body mass index (BMI) [Ratio] 30.5 kg/m2 30.5 k g/m2 JOVON ([facility]) Systolic blood pressure 100 mm[Hg] 100 mm[Hg] A [facility] ([facility]) Body weight 3593.6 [oz_av] 3593.6 [oz_av] ATHEN A ([facility]) Diastolic blood pressure 68 mm[Hg] 68 mm[Hg] JOVON ([facility]) Body height 72 [in_i] 72 [in_i] JOVON ([facility]) Body mass index (BMI) [Ratio] 30.5 kg/m2 30.5 k g/m2 JOVON ([facility]) Systolic blood pressure 100 mm[Hg] 100 mm[Hg] A [facility] ([facility]) Body weight 3593.6 [oz_av] 3593.6 [oz_av] ATHEN A ([facility]) Body weight 216.00 [lb_av] 216.00 [lb_av] JOSE Rabago ([facility] Systolic blood pressure 120 mm[Hg] 120 mm[Hg] Daphnie ORDOÑEZ ([facility] Diastolic blood pressure 60 mm[Hg] 60 mm[Hg] LAURA ([facility] Body mass index (BMI) [Ratio] 29.3 kg/m2 29.3 k g/m2 MEDENT ([facility] Heart rate 58 /min 58 /min MEDENT ([facility] Body height 72 [in_i] 72 [in_i] MEDENT ([facility] 6'0" Body height 71 [in_i] 71 [in_i] MEDENT ([facility] 5'11" Body weight 216.00 [lb_av] 216.00 [...] 97.978 kg 97.978 kg MEDENT ([facility]) Body temperature 97.0 [degF] 97.0 [degF] MEDENT ([facility]) Body height 71 [in_i] 71 [in_i] MEDENT ([facility]) 5'11" Body mass index (BMI) [Ratio] 29.4 kg/m2 29.4 k g/m2 MEDENT ([facility], [facility]) Systolic blood pressure 100 mm[Hg] 100 mm[Hg] M EDENT ([facility], [facility]) Diastolic blood pressure 64 mm[Hg] 64 mm[Hg] MEDENT ([facility], [facility]) Heart rate 73 /min 73 /min MEDENT ([facility], [facility]) Respiratory rate 18 /min 18 /min MEDENT ( [facility], [facility]) Oxygen saturation in Arterial blood by Pulse oximetry 100 % 100 % MEDENT ([facility], [facility]) Body temperature 97.9 [degF] 97.9 [degF] MEDENT ([facility], [facility]) Body weight 211.00 [lb_av] 211.00 [lb_av] MEDEN T ([facility], [facility]) Systolic blood pressure 128 mm[Hg] 128 mm[Hg] M EDENT ([facility] ) Diastolic blood pressure 62 mm[Hg] 62 mm[Hg] MEDENT ([facility] ) Heart rate 70 /min 70 /min [facility] ([facility] ) Body temperature 97.0 [degF] 97.0 [degF] MEDENT ([facility] ) Body height 70 [in_i] 70 [in_i] MEDENT ([facility] ) 5'10" Body weight 211.00 [lb_av] 211.00 [lb_av] MEDEN T ([facility] ) Body mass index (BMI) [Ratio] 30.3 kg/m2 30.3 k g/m2 MEDENT ([facility] ) Oxygen saturation in Arterial blood by Pulse oximetry 99 % 99 % MED[facility] ([facility] ) Systolic blood pressure 140 mm[Hg] 140 mm[Hg] M EDENT ([facility] ) Body weight 206.31 [lb_av] 206.31 [lb_av] MEDEN T ([facility] ) Body mass index (BMI) [Ratio] 29.6 kg/m2 29.6 k g/m2 MEDENT ([facility] ) Oxygen saturation in Arterial blood by Pulse oximetry 99 % 99 % MEDENT ([facility] ) Diastolic blood pressure 64 mm[Hg] 64 mm[Hg] MEDENT ([facility] ) Heart rate 73 /min 73 /min MEDENT ([facility] ) Body temperature 96.8 [degF] 96.8 [degF] MEDENT ([facility] ) Body height 70 [in_i] 70 [in_i] MEDENT ([facility] ) 5'10" Diastolic blood pressure 80 mm[Hg] 80 mm[Hg] JOVON ([facility]) Diastolic blood pressure 80 mm[Hg] 80 mm[Hg] JOVON ([facility]) Body height 72 [in_i] 72 [in_i] JOVON ([facility]) Body mass index (BMI) [Ratio] 28.2 kg/m2 28.2 k g/m2 JOVON ([facility]) Systolic blood pressure 132 mm[Hg] 132 mm[Hg] A THENA ([facility]) Body weight 3332 [oz_av] 3332 [oz_av] JOVON ([facility]) Diastolic blood pressure 80 mm[Hg] 80 mm[Hg] JOVON ([facility]) Body height 72 [in_i] 72 [in_i] JOVON ([facility]) Body mass index (BMI) [Ratio] 28.2 kg/m2 28.2 k g/m2 JOVON ([facility]) Systolic blood pressure 132 mm[Hg] 132 mm[Hg] [facility] Body weight 3332 [oz_av] 3332 [oz_av] JOVON ([facility]) Body height 72 [in_i] 72 [in_i] JOVON ([facility]) Body mass index (BMI) [Ratio] 28.2 kg/m2 28.2 k g/m2 JOVON ([facility]) Systolic blood pressure 132 mm[Hg] 132 mm[Hg] A THENA ([facility]) Body weight 3332 [oz_av] 3332 [oz_av] JOVON ([facility]) Diastolic blood pressure 80 mm[Hg] 80 mm[Hg] JOVON ([facility]) Body height 72 [in_i] 72 [in_i] JOVON ([facility]) Body mass index (BMI) [Ratio] 28.2 kg/m2 28.2 k g/m2 JOVON ([facility]) Systolic blood pressure 132 mm[Hg] 132 mm[Hg] A THENA ([facility]) Body weight 3332 [oz_av] 3332 [oz_av] JOVON ([facility]) Diastolic blood pressure 80 mm[Hg] 80 mm[Hg] JOVON ([facility]) Body height 72 [in_i] 72 [in_i] JOVON ([facility]) Body mass index (BMI) [Ratio] 28.2 kg/m2 28.2 k g/m2 JOVON ([facility]) Systolic blood pressure 132 mm[Hg] 132 mm[Hg] A THENA ([facility]) Body weight 3332 [oz_av] 3332 [oz_av] JOVON ([facility]) Diastolic blood pressure 80 mm[Hg] 80 mm[Hg] JOVON ([facility]) Body height 72 [in_i] 72 [in_i] JOVON ([facility]) Body mass index (BMI) [Ratio] 28.2 kg/m2 28.2 k g/m2 JOVON ([facility]) Systolic blood pressure 132 mm[Hg] 132 mm[Hg] A THENA ([facility]) Body weight 3332 [oz_av] 3332 [oz_av] JOVON ([facility]) Diastolic blood pressure 80 mm[Hg] 80 mm[Hg] JOVON ([facility]) Body height 72 [in_i] 72 [in_i] JOVON ([facility]) Body mass index (BMI) [Ratio] 28.2 kg/m2 28.2 k g/m2 JOVON ([facility]) Systolic blood pressure 132 mm[Hg] 132 mm[Hg] A THENA ([facility]) Body weight 3332 [oz_av] 3332 [oz_av] JOVON ([facility]) Diastolic blood pressure 80 mm[Hg] 80 mm[Hg] JOVON ([facility]) Body height 72 [in_i] 72 [in_i] JOVON ([facility]) Body mass index (BMI) [Ratio] 28.2 kg/m2 28.2 k g/m2 JOVON ([facility]) Systolic blood pressure 132 mm[Hg] 132 mm[Hg] A THENA ([facility]) Body weight 3332 [oz_av] 3332 [oz_av] JOVON ([facility]) Diastolic blood pressure 80 mm[Hg] 80 mm[Hg] JOVON ([facility]) Body height 72 [in_i] 72 [in_i] JOVON ([facility]) Body mass index (BMI) [Ratio] 28.2 kg/m2 28.2 k g/m2 JOVON ([facility]) Systolic blood pressure 132 mm[Hg] 132 mm[Hg] A OMID ([facility]) Body weight 3332 [oz_av] 3332 [oz_av] JOVON ([facility]) Diastolic blood pressure 80 mm[Hg] 80 mm[Hg] JOVON ([facility]) Body height 72 [in_i] 72 [in_i] JOVON ([facility]) Body mass index (BMI) [Ratio] 28.2 kg/m2 28.2 k g/m2 JOVON ([facility]) Systolic blood pressure 132 mm[Hg] 132 mm[Hg] A OMID ([facility]) Body weight 3332 [oz_av] 3332 [oz_av] JOVON ([facility]) ID Date Data Source [id number] 05/10/2021 03:54:[address] [facility] Name Value Range Interpretation Code Description Data Source(s) PREFERRED NAME [facility] ID Date Data Source [id number] 02/26/2021 10:26:[address] [facility] Name Value Range Interpretation Code Description Data Source(s) WEIGHT RECORDED 225 lb 225 lb [facility] Body height Measured 70 in 70 in [facility] PREFERRED NAME [facility] ID Date Data Source [id number] 02/13/2021 01:28:[address] [facility] Name Value Range Interpretation Code Description Data Source(s) PREFERRED NAME [facility] PREFERRED NAME [facility] ID Date Data Source [id number] 02/05/2021 09:37:[address] [facility] Name Value Range Interpretation Code Description Data Source(s) WEIGHT RECORDED 227 lb 227 lb [facility] Body height Measured 70 in 70 in [facility] PREFERRED NAME [facility] PREFERRED NAME [facility] ID Date Data Source [id number] 12/12/2020 10:43:[address] [facility] Name Value Range Interpretation Code Description Data Source(s) PREFERRED NAME [facility] ID Date Data Source [id number] 11/22/2020 03:07:[address] [facility] Name Value Range Interpretation Code Description Data Source(s) PREFERRED NAME [facility] ID Date Data Source [id number] 12/07/2020 10:28:[address] [facility] Name Value Range Interpretation Code Description Data Source(s) Health system Patient Treatment Plan of Care Planned Activity Planned Date Details Description Data Source (s) olodaterol 0.0025 MG/ACTUAT / tiotropium 0.0025 MG/ACT UAT Metered Dose Inhaler 07/08/2021 12:00:00 AM EDT [facility]) Prednisone 10 MG Oral Tablet 07/07/2021 12:00:00 AM EDT [facility]) Levofloxacin 750 MG Oral Tablet [Levaquin] 07/07/2021 12:00:00 AM E DT [place] ([facility]) Estradiol 2 MG Oral Tablet 05/20/2021 12:00:00 AM EDT [facility] ([facility]) tramadol hydrochloride 50 MG Oral Tablet 02/20/2021 12:00:00 AM [facility] Docusate Sodium 100 MG Oral Capsule 02/20/2021 12:00:00 AM [facility] Acetaminophen 325 MG Oral Tablet 02/20/2021 12:00:00 AM [facility] tramadol hydrochloride 50 MG Oral Tablet 02/19/2021 01:06:10 PM [facility] ondansetron (ZOFRAN) injection 4 mg 02/19/2021 01:02:48 PM [facility] albuterol (PROVENTIL HFA) inhaler 2 puff 02/19/2021 12:55:42 PM [facility] Albuterol Sulfate HFA 108 (90 Base) MCG/ ACT Inhalation Aerosol Solution (PROVENTIL HFA) 01/08/2021 12:00:00 AM EDT [facility] Estradiol 2 MG Oral Tablet 11/14/2020 12:00:00 AM EST [facility] ([facility]) Estradiol 2 MG Oral Tablet 10/12/2020 12:00:00 AM EST [facility] ([facility]) Estradiol 2 MG Oral Tablet 07/13/2020 12:00:00 AM EDT [facility] ([facility]) Estradiol 2 MG Oral Tablet 07/13/2020 12:00:00 AM EDT [facility] ([facility]) Progesterone 100 MG Oral Capsule [Prometrium] 05/21/2020 12:00:00 A M EDT [facility] ([facility]) Finasteride 5 MG Oral Tablet 04/23/2020 12:00:00 AM EDT [facility] ([facility]) tramadol hydrochloride 50 MG Oral Tablet JOVON ([facility]) Progesterone 100 MG Oral Capsule J[facility] ([facility]) Prednisone 20 MG Oral Tablet [place] ([facility]) OneTouch Ultra Blue Test Strip USE DIRECTED FOUR TIMES A DAY [place] ([facility]) Metoprolol Tartrate 25 MG Oral Tablet [place] ([facility]) 1 ML Leuprolide Acetate 3.75 MG/ML Prefilled Syringe [Lupron] [facility]) Lisinopril 2.5 MG Oral Tablet [place] ([facility]) liothyronine sodium 0.025 MG Oral Tablet JOVON ([facility]) Levothyroxine Sodium 0.025 MG Oral Tablet [Levo-T] [place] ([facility]) Finasteride 5 MG Oral Tablet JOVON ([facility]) doxycycline hyclate 100 MG Oral Capsule JOVON ([facility]) Docusate Sodium 100 MG Oral Capsule JOVON ([facility]) Clarithromycin 500 MG Oral Tablet JOVON ([facility]) Azithromycin 250 MG Oral Tablet JOVON ([facility]) ammonium lactate 120 MG/ML Topical Cream JOVON ([facility]) tramadol hydrochloride 50 MG Oral Tablet JOVON ([facility]) olodaterol 0.0025 MG/ACTUAT / tiotropium 0.0025 MG/ACT UAT Metered Dose Inhaler JOVON ([facility]) Progesterone 100 MG Oral Capsule JOVON ([facility]) Prednisone 20 MG Oral Tablet JOVON ([facility]) OneTouch Ultra Blue Test Strip USE DIRECTED FOUR TIMES A DAY JOVON ([facility]) Metoprolol Tartrate 25 MG Oral Tablet JOVON ([facility]) 1 ML Leuprolide Acetate 3.75 MG/ML Prefilled Syringe [Lupron] JOVON ([facility]) liothyronine sodium 0.025 MG Oral Tablet JOVON ([facility]) Levothyroxine Sodium 0.025 MG Oral Tablet [Levo-T] JOVON ([facility]) Finasteride 5 MG Oral Tablet JOVON ([facility]) doxycycline hyclate 100 MG Oral Capsule JOVON ([facility]) Docusate Sodium 100 MG Oral Capsule JOVON ([facility]) Clarithromycin 500 MG Oral Tablet JOV[facility] ([facility]) Azithromycin 250 MG Oral Tablet JOVON ([facility]) ammonium lactate 120 MG/ML Topical Cream JOVON ([facility]) tramadol hydrochloride 50 MG Oral Tablet JOVON ([facility]) Progesterone 100 MG Oral Capsule JOVON ([facility]) Prednisone 20 MG Oral Tablet JOVON ([facility]) liothyronine sodium 0.025 MG Oral Tablet JOVON ([facility]) Levothyroxine Sodium 0.025 MG Oral Tablet [Levo-T] JOVON ([facility]) Finasteride 5 MG Oral Tablet JOVON ([facility]) doxycycline hyclate 100 MG Oral Capsule JOVON ([facility]) Docusate Sodium 100 MG Oral Capsule JOVNO ([facility]) Clarithromycin 500 MG Oral Tablet JOVON ([facility]) Progesterone 100 MG Oral Capsule JOVON ([facility]) Prednisone 20 MG Oral Tablet JOVON ([facility]) liothyronine sodium 0.025 MG Oral Tablet JOVON ([facility]) Levothyroxine Sodium 0.025 MG Oral Tablet [Levo-T] JOVON ([facility]) Finasteride 5 MG Oral Tablet JOVON ([facility]) doxycycline hyclate 100 MG Oral Capsule JOVON ([facility]) Clarithromycin 500 MG Oral Tablet JOVON ([facility]) Progesterone 100 MG Oral Capsule JOVON ([facility]) Prednisone 20 MG Oral Tablet JOVON ([facility]) liothyronine sodium 0.025 MG Oral Tablet JOVON ([facility]) Levothyroxine Sodium 0.025 MG Oral Tablet [Levo-T] JOVON ([facility]) Finasteride 5 MG Oral Tablet JOVON ([facility]) doxycycline hyclate 100 MG Oral Capsule JOVON ([facility]) Clarithromycin 500 MG Oral Tablet JOVON ([facility]) Prednisone 20 MG Oral Tablet JOV[facility] ([facility]) liothyronine sodium 0.025 MG Oral Tablet JOV[facility] ([facility]) Levothyroxine Sodium 0.025 MG Oral Tablet [Levo-T] JOVON ([facility]) Finasteride 5 MG Oral Tablet JOV[facility] ([facility]) doxycycline hyclate 100 MG Oral Capsule JOVON ([facility]) Finasteride 5 MG Oral Tablet [facility] ([facility]) Progesterone 100 MG Oral Capsule [facility] ([facility]) Prednisone 20 MG Oral Tablet JOV[facility] ([facility]) liothyronine sodium 0.025 MG Oral Tablet JOV[facility] ([facility]) Levothyroxine Sodium 0.025 MG Oral Tablet [Levo-T] JOVON ([facility]) Finasteride 5 MG Oral Tablet JOV[facility] ([facility]) doxycycline hyclate 100 MG Oral Capsule JOVON ([facility]) Estradiol 2 MG Oral Tablet [facility] ([facility])
--- OUTSIDE RECORDS SUMMARY | 2021-08-31 14:03 | CCD ---
Author Author [facility] Organization [facility] Address Unknown Phone Unavailable Care Team Providers Care Pressroom Worker Name Role Phone Shelton, Celena Unavailable Unavailable [...] Unavailable Unavailable Nelsonolavsky Graciela MD Unavailable Unavailable eNlsonolavsky Graciela MD Unavailable Unavailable Nelsonolavsky Graciela MD [...] Unavailable Nikolavsky Graciela MD Unavailable Unavailable Nelsonolavsky Garciela MD Unavailable Unavailable Nelsonolavsky Graciela MD Unavailable Unavailable Nelsonolavsky Graciela MD Unavailable Unavailable Nelsonolavsky Graciela MD Unavailable Unavailable Nikolavsky Graciela MD Unavailable Unavailable Nikolavsky, Graciela MD Unavailable Unavailable Nikolavsky Graciela MD Unavailable Unavailable Nelsonolavsky Graciela MD Unavailable Unavailable Veley, Lucy SENIOR INTEGRATION ARCHITECT Unavailable Unavailable Veley, Lucy SENIOR INTEGRATION ARCHITECT Unavailable Unavailable Veley, Lucy SENIOR INTEGRATION ARCHITECT Unavailable Unavailable Veley, Lucy SENIOR INTEGRATION ARCHITECT Unavailable Unavailable Veley, Lucy SENIOR INTEGRATION ARCHITECT Unavailable Unavailable Veley, Lucy SENIOR INTEGRATION ARCHITECT Unavailable Unavailable Veley, Lucy SENIOR INTEGRATION ARCHITECT Unavailable Unavailable Veley, Lucy SENIOR INTEGRATION ARCHITECT Unavailable Unavailable Veley, Lucy SENIOR INTEGRATION ARCHITECT Unavailable Unavailable Veley, Lucy SENIOR INTEGRATION ARCHITECT Unavailable Unavailable Veley, Lucy SENIOR INTEGRATION ARCHITECT Unavailable Unavailable Veley, Lucy SENIOR INTEGRATION ARCHITECT Unavailable Unavailable Veley, Lucy SENIOR INTEGRATION ARCHITECT Unavailable Unavailable Veley, Lucy SENIOR INTEGRATION ARCHITECT Unavailable Unavailable Veley, Lucy SENIOR INTEGRATION ARCHITECT Unavailable Unavailable Veley, Lucy SENIOR INTEGRATION ARCHITECT Unavailable Unavailable Veley, Lucy SENIOR INTEGRATION ARCHITECT Unavailable Unavailable Veley, Lucy SENIOR INTEGRATION ARCHITECT Unavailable Unavailable Veley, Lucy SENIOR INTEGRATION ARCHITECT Unavailable Unavailable Veley, Lucy SENIOR INTEGRATION ARCHITECT Unavailable Unavailable Veley, Lucy SENIOR INTEGRATION ARCHITECT Unavailable Unavailable Veley, Lucy SENIOR INTEGRATION ARCHITECT Unavailable Unavailable Veley, Lucy SENIOR INTEGRATION ARCHITECT Unavailable Unavailable Veley, Lucy SENIOR INTEGRATION ARCHITECT Unavailable Unavailable Veley, Ulcy SENIOR INTEGRATION ARCHITECT Unavailable Unavailable Veley, Lucy SENIOR INTEGRATION ARCHITECT Unavailable Unavailable Veley, Lucy SENIOR INTEGRATION ARCHITECT Unavailable Unavailable Veley, Lucy SENIOR INTEGRATION ARCHITECT Unavailable Unavailable Veley, Lucy SENIOR INTEGRATION ARCHITECT Unavailable Unavailable Veley, Lucy SENIOR INTEGRATION ARCHITECT Unavailable Unavailable Veley, Lucy SENIOR INTEGRATION ARCHITECT Unavailable Unavailable Veley, Lucy SENIOR INTEGRATION ARCHITECT Unavailable Unavailable Veley, Lucy SENIOR INTEGRATION ARCHITECT Unavailable Unavailable Veley, Lucy SENIOR INTEGRATION ARCHITECT Unavailable Unavailable Veley, Lucy SENIOR INTEGRATION ARCHITECT Unavailable Unavailable Joanne ARGUELLES DPM Unavailable Unavailable [...] Unavailable Reg MEANS MD Unavailable Unavailable Reg MENAS MD Unavailable Unavailable Reg MEANS MD Unavailable [...] DOLORES PA Unavailable Unavailable Cassidy, E Charisse SENIOR INTEGRATION ARCHITECT Unavailable Unavailable Cassidy, E Charisse SENIOR INTEGRATION ARCHITECT Unavailable Unavailable Cassidy, E Charisse SENIOR INTEGRATION ARCHITECT Unavailable Unavailable Cassidy, E Charisse SENIOR INTEGRATION ARCHITECT Unavailable Unavailable Cassidy, E Charisse SENIOR INTEGRATION ARCHITECT Unavailable Unavailable Cassidy, E Charisse SENIOR INTEGRATION ARCHITECT Unavailable Unavailable Cassidy, E Charisse SENIOR INTEGRATION ARCHITECT Unavailable Unavailable Cassidy, E Charisse SENIOR INTEGRATION ARCHITECT Unavailable Unavailable Cassidy, E Charisse SENIOR INTEGRATION ARCHITECT Unavailable Unavailable Cassidy, E Charisse SENIOR INTEGRATION ARCHITECT Unavailable Unavailable Cassidy, E Charisse SENIOR INTEGRATION ARCHITECT Unavailable Unavailable Cassidy, E Charisse SENIOR INTEGRATION ARCHITECT Unavailable Unavailable Cassidy, E Charisse SENIOR INTEGRATION ARCHITECT Unavailable Unavailable Cassidy, E Charisse SENIOR INTEGRATION ARCHITECT Unavailable Unavailable Cassidy, E Charisse SENIOR INTEGRATION ARCHITECT Unavailable Unavailable Cassidy, E Charisse SENIOR INTEGRATION ARCHITECT Unavailable Unavailable Cassidy, E Charisse SENIOR INTEGRATION ARCHITECT Unavailable Unavailable Cassidy, E Charisse SENIOR INTEGRATION ARCHITECT Unavailable Unavailable Cassidy, E Charisse SENIOR INTEGRATION ARCHITECT Unavailable Unavailable Cassidy, E Charisse SENIOR INTEGRATION ARCHITECT Unavailable Unavailable Cassidy, E Charisse SENIOR INTEGRATION ARCHITECT Unavailable Unavailable Cassidy, E Charisse SENIOR INTEGRATION ARCHITECT Unavailable Unavailable Cassidy, E Charisse SENIOR INTEGRATION ARCHITECT Unavailable Unavailable PRYBYLOWSKI, E TITA PA Unavailable [...] Stephanie Hoyt MD Unavailable Unavailable Fish, Stephanie Hyot MD Unavailable Unavailable Fish, Stephanie Hoyt MD [...] Evelina BASS Unavailable Unavailable ASHLEY, AMMON MOLLY PLASTERER FOREMAN-C Unavailable Unavailable ASHLEY, AMMON MOLLY PLASTERER FOREMAN-C Unavailable Unavailable ASHLEY, AMMON MOLLY PLASTERER FOREMAN-C Unavailable Unavailable ASHLEY, AMMON MOLLY PLASTERER FOREMAN-C Unavailable Unavailable ASHLEY, AMMON MOLLY PLASTERER FOREMAN-C Unavailable Unavailable ASHLEY, AMMON MOLLY PLASTERER FOREMAN-C Unavailable Unavailable ASHLEY, AMMON MOLLY PLASTERER FOREMAN-C Unavailable Unavailable ASHLEY, AMMON MOLLY PLASTERER FOREMAN-C Unavailable Unavailable ASHLEY, AMMON MOLLY PLASTERER FOREMAN-C Unavailable Unavailable ASHLEY, AMMON MOLLY PLASTERER FOREMAN-C Unavailable Unavailable ASHLEY, AMMON MOLLY PLASTERER FOREMAN-C Unavailable Unavailable ASHLEY, AMMON MOLLY PLASTERER FOREMAN-C Unavailable Unavailable ASHLEY, AMMON MOLLY PLASTERER FOREMAN-C Unavailable Unavailable ASHLEY, AMMON MOLLY PLASTERER FOREMAN-C Unavailable Unavailable ASHLEY, AMMON MOLLY PLASTERER FOREMAN-C Unavailable Unavailable ASHLEY, AMMON MOLLY PLASTERER FOREMAN-C Unavailable Unavailable ASHLEY, AMMON MOLLY PLASTERER FOREMAN-C Unavailable Unavailable Real Rome MD Unavailable Unavailable [...] is protected by Article 27-F of the [facility] Public Health law. If you continue you may have access to information: Regarding HIV / AIDS; Provided by facilities licensed or operated by the [facility] Office of Mental Health; or Provided by the [facility] Office for People With Developmental Disabilities. If such information is present, then the following [facility] mandated warning applies: This information has [...] law may result in a fine or skilled nursing sentence or both. A general authorization for the release of medical or other information is NOT sufficient authorization for further disc losure. Allergies and Adverse Reactions Type Description Substance Reaction Status Data Source(s ) Allergy to substance Allergy to substance Allergy to substance [place] ([facility]) Allergy to substance Allergy to substance Allergy to substance [place] ([facility]) Allergy to substance Allergy to substance Allergy to substance [place] ([facility]) Family History Family Member Name Family Member Gender Family Member Status Date o f Status Description Data Source(s) Unknown Female Diagnosis 03/27/2020 12:00:00 AM EDT [facility] ([facility]) Unknown Unknown Problem [facility] father's side sister Unknown Male Problem [facility] ([facility] Unknown Male Problem [facility] ([facility]) Unknown Female Problem [facility] ([facility]) Unknown Female Problem [facility] ([facility]) Unknown Female Problem [facility] ([facility]) Encounters Encounter Providers Location Date Indications Data Source(s ) Outpatient Attender: Evelina Soliz MD Physical Therapy 07/22 09:45:00 AM EDT [facility] ([facility]) Celena Mcbride MD: [address] [place] [address], Ph. Attender: Celena Mcbride [facility] 07/12/2021 12:00:00 AM EDT [place] ([facility]) Celena Mcbride MD: [address] [place] [address], Ph. Attender: Celena Mcbride [facility] 06/07/2021 12:00:00 AM EDT [place] ([facility]) Celena Mcbride MD: [address], [place] [address], Ph. Attender: Celena Mcbride [facility] 06/07/2021 12:00:00 AM EDT [place] ([facility]) Outpatient Attender: MOLLY ASHLEY [place] 05/29/2021 12:45:00 PM EDT [facility] ([facility]) Attender: TITA Granger 05/20/2021 10:23:00 AM EDT - 05/20/2021 10:23:00 AM EDT [facility] ([facility]) Outpatient Attender: Rito [place] 04/17/2021 08:30:00 AM EDT [facility] ([facility]) Attender: Celena Granger 04/15 01:53:00 PM EDT - 04/15/2021 01:53:00 PM EDT [facility] ([facility]) Attender: TITA Lopez 04/12/2021 10:30:00 AM EDT - 04/12/2021 10:30:00 AM EDT Gender identity disorder, unspecified [facility] ([facility]) Gender identity disorder, unspecified Outpatient Attender: Rito Knight/[place] 04/03/2021 02:00:00 PM EDT [facility] ([facility]) Attender: Angelic Granger 0 03/28/2021 03:52:00 PM EDT - 03/28/2021 03:52:00 PM EDT [facility] ([facility]) Outpatient Attender: Evelina Soliz MD Physical Therapy 03/21 02:30:00 PM EDT [facility] ([facility]) Outpatient Attender: Graciela Thompson MDReferrer: Lucy Ceron NP [id number] 03/06/2021 12:00:00 AM EDT - 03/06/2021 04:18:[address] [facility] Celena Mcbride MD: [address] [place] [address], [place] [address], Ph. Attender: Celena Mcbride [facility] 03/05/2021 12:00:00 AM EDT [place] ([facility]) Celena Mcbride MD: [address] , [place] [address], Ph. Attender: Celena Mcbride [facility] 03/05/2021 12:00:00 AM EDT [place] ([facility]) Celena Mcbride MD: [address] [place] [address], Ph. Attender: Celena Mcbride [facility] 03/05/2021 12:00:00 AM EDT [place] ([facility]) Outpatient Attender: Graciela Thompson MDAdmitter: Graciela Thompson MD [id number] 02/19/2021 12:00:00 AM EDT - 02/20/2021 08:34:00 AM ED T Gender identity disorder, unspecified [facility] Gender identity disorder, unspecified Patient discharged. Outpatient Attender: Damaris Torres MDReferrer: Graciela niño MD 02/13/2021 12:00:00 AM EDT [facility] pre[facility] Celena Mcbride MD: [address] [place] [address], Ph. Attender: Celena Mcbride [facility] 02/12/2021 12:00:00 AM EDT [place] ([facility]) Celena Mcbride MD: [address] [place] [address], Ph. Attender: Celena Mcbride [facility] 02/12/2021 12:00:00 AM EDT [place] ([facility]) Celena Mcbride MD: [address], [place] [address], Ph. Attender: Celena Mcbride [facility] 02/12/2021 12:00:00 AM EDT [place] ([facility]) Celena Mcbride MD: [address], [place] [address], Ph. Attender: Celena Mcbride [facility] 02/12/2021 12:00:00 AM EDT [place] ([facility]) Outpatient Attender: Graciela BALDERASeferrer: Lucy Ceron NP [id number] 01/28/2021 12:00:00 AM EDT - 01/28/2021 12:29:32 PM ED T Gender identity disorder, unspecified [facility] Gender identity disorder, unspecified Celena Mcbride MD: [address], [place] [address], Ph. Attender: Celena Mcbride [facility] 01/21/2021 12:00:00 AM EDT [place] ([facility]) Celena Mcbride MD: [address], [place] [address], Ph. Attender: Celena Mcbride [facility] 01/21/2021 12:00:00 AM EDT [place] ([facility]) Celena Mcbride MD: [address], [place] [address], Ph. Attender: Celena Mcbride [facility] 01/21/2021 12:00:00 AM EDT [place] ([facility]) Celena Mcbride MD: [address], [place] [address], Ph. Attender: Celena Mcbride [facility] 01/21/2021 12:00:00 AM EDT [place] ([facility]) Celena Mcbride MD: [address], [place] [address], Ph. Attender: Celena Mcbride [facility] 01/21/2021 12:00:00 AM EDT [place] ([facility]) Celena Mcbride MD: [address], [place] [address], Ph. Attender: Celena Mcbride [facility] 12/19/2020 12:00:00 AM EDT [place] ([facility]) Celena Mcbride MD: [address], [place] [address], Ph. Attender: Celena Mcbride [facility] 12/19/2020 12:00:00 AM EDT [place] ([facility]) Celena Mcbride MD: [address], [place] [address], Ph. Attender: Celena Mcbride [facility] 12/19/2020 12:00:00 AM EDT [place] ([facility]) Celena Mcbride MD: [address], [place] [address], Ph. Attender: Celena Mcbride [facility] 12/19/2020 12:00:00 AM EDT [place] ([facility]) Celena Mcbride MD: [address], [place] [address], Ph. Attender: Celena Mcbride [facility] 12/19/2020 12:00:00 AM EDT [place] ([facility]) Celena Mcbride MD: [address], [place] [address], Ph. Attender: Celena Mcbride [facility] 12/19/2020 12:00:00 AM EDT [place] ([facility]) Outpatient Attender: Evelina Soliz MD Physical Therapy 12/14 11:45:00 AM EDT [place] ([facility]) Outpatient Attender: Jurgen Larsen MD 12/13/2020 12:00:00 AM [facility] Celena Mcbride MD: [address], [place] [address], Ph. Attender: Celena Mcbride [facility] 12/12/2020 12:00:00 AM EDT [place] ([facility]) Celena Mcbride MD: [address], [place] [address], Ph. Attender: Celena Mcbride [facility] 12/12/2020 12:00:00 AM EDT [place] ([facility]) Celena Mcbride MD: [address], [place] [address], Ph. Attender: Celena Mcbride [facility] 12/12/2020 12:00:00 AM EDT [place] ([facility]) Celena Mcbride MD: [address], [place] [address], Ph. Attender: Celena Mcbride [facility] 12/12/2020 12:00:00 AM EDT [place] ([facility]) Celena Mcbride MD: [address], [place] [address], Ph. Attender: Celena Mcbride [facility] 12/12/2020 12:00:00 AM EDT [place] ([facility]) Celena Mcbride MD: [address], [place] [address], Ph. Attender: Celena Mcbride [facility] 12/12/2020 12:00:00 AM EDT [place] ([facility]) Celena Mcbride MD: [address], [place] [address], Ph. Attender: Celena Mcbride [facility] 12/12/2020 12:00:00 AM EDT [place] ([facility]) Outpatient Attender: Obi Means 12/12/2020 12:00:00 AM [facility] Outpatient Attender: Jurgen Larsen MD 12/07/2020 12:00:00 AM [facility] Outpatient Attender: NATHEN MEANS MD [facility] 12/06/2020 02:30:00 PM EDT [facility] ([facility]) Attender: TITA Granger 11/30/2020 10:05:00 AM EST - 11/30/2020 10:05:00 AM EST [facility] ([facility]) Attender: TITA Granger 11/14/2020 10:17:00 AM EST - 11/14/2020 10:17:00 AM EST [facility] ([facility]) Attender: Angelic Arauz 12:30:00 PM EST - 11/13/2020 12:30:00 PM EST [facility] ([facility]) Attender: Angelic Arauz 08/2021 08:07:00 AM EST - 11/02/2020 08:07:00 AM EST [facility] ([facility]) Outpatient Attender: BRYCE ARGUELLES [facility] Office 10/22 08:00:00 AM EST [facility] ([facility] Outpatient Attender: Javon Dixon MD Main Office 10/23/2020 08:00:00 AM EST [facility] ([facility]) Attender: TITA Granger 10/17/2020 03:17:00 PM EST - 10/17/2020 03:17:00 PM EST [facility] ([facility]) Attender: TITA Lopez 10/12/2020 10:30:00 AM EST - 10/12/2020 10:30:00 AM EST Gender identity disorder, unspecified [facility] ([facility]) Gender identity disorder, unspecified Outpatient Attender: DOLORES Corrales [facility] 10/11/2020 11:00:00 AM EST [facility] ([facility]) Attender: TITA Lopez 10/03/2020 03:34:00 PM EST - 10/03/2020 03:34:00 PM EST [facility] ([facility]) Attender: TITA Granger 09/27/2020 01:16:00 PM EST - 09/27/2020 01:16:00 PM EST [facility] ([facility]) Attender: TITA Granger 09/25/2020 01:27:00 PM EST - 09/25/2020 01:27:00 PM EST [facility] ([facility]) Outpatient Attender: Evelina Soliz MD Physical Therapy 09/20 02:00:00 PM EST [facility] ([facility]) Attender: Angelic Granger 1 10/31/2019 10:49:00 AM EST - 08/30/2020 10:49:00 AM EST [facility] ([facility]) Attender: TITA Granger 08/29/2020 07:43:00 AM EST - 08/29/2020 07:43:00 AM EST [facility] ([facility]) Attender: TITA Granger 08/28/2020 09:48:00 AM EST - 08/28/2020 09:48:00 AM EST [facility] ([facility]) Outpatient Attender: Evelina Soliz MD Physical Therapy 08/20 12:45:00 PM EST [facility] ([facility]) Attender: TITA Granger 07/24/2020 09:24:00 AM EST - 07/24/2020 09:24:00 AM EST [facility] ([facility]) Attender: TITA Granger 07/23/2020 10:13:00 AM EST - 07/23/2020 10:13:00 AM EST [facility] ([facility]) Attender: TITA Stoll 09:01:00 AM EDT - 07/18/2020 09:01:00 AM EDT [facility] ([facility]) Attender: TITA Stoll 11:42:00 AM EDT - 07/17/2020 11:42:00 AM EDT [facility] ([facility]) Attender: TITA Granger 07/16/2020 12:42:00 PM EDT - 07/16/2020 12:42:00 PM EDT [facility] ([facility]) Attender: TITA Lopez 07/13/2020 10:30:00 AM EDT - 07/13/2020 10:30:00 AM EDT Gender Identity Disorder [facility] ([facility]) Gender Identity Disorder Outpatient FP 07/11/2020 09:38:00 AM EDT [facility] SUSANNE Malin-BC: [address], [place] [address], Ph. Attender: Charisse Cassidy NP [facility] Medical 07/11/2020 12:00:00 AM EDT [place] ([facility]) SUSANNE Malin-BC: [address], [place] [address], Ph. Attender: Charisse Cassidy NP [facility] Medical 07/11/2020 12:00:00 AM EDT [place] ([facility]) SUSANNE Malin-BC: [address], [place] [address], Ph. Attender: Charisse Cassidy NP [facility] Medical 07/11/2020 12:00:00 AM EDT [place] ([facility]) SUSANNE Malin-BC: [address], [place] [address], Ph. Attender: Charisse Cassidy NP [facility] Medical 07/11/2020 12:00:00 AM EDT [place] ([facility]) SUSANNE Malin-BC: [address], [place] [address], Ph. Attender: Charisse Cassidy NP [facility] Medical 07/11/2020 12:00:00 AM EDT [place] ([facility]) SUSANNE Malin-BC: [address], [place] [address], Ph. Attender: Charisse Cassidy NP [facility] Medical 07/11/2020 12:00:00 AM EDT [place] ([facility]) SUSANNE Malin-BC: [address], [place] [address], Ph. Attender: Charisse Cassidy NP [facility] 07/11/2020 12:00:00 AM EDT [facility]) XUAN Malin: [address], [place] [address], Ph. Attender: Charisse Cassidy NP [facility] 07/11/2020 12:00:00 AM EDT [facility]) BLAIR MalinBC: [address], [place] [address], Ph. Attender: Charisse Cassidy NP [facility] 07/11/2020 12:00:00 AM EDT [facility]) XUAN Malin: [address], [place] [address], Ph. Attender: Charisse Cassidy NP [facility] 07/11/2020 12:00:00 AM EDT [place] ([facility]) Medications Medication Brand Name Start [...] 25 MG/ACTUAT / tiotropium 0.0025 MG/ACTUAT Inhalation [place] ([facility]) Levofloxacin 750 MG Oral Tablet [Levaqui n] Levaquin 750 mg tablet Take 1 tablet every day by oral route for 7 days. Levaquin 750 mg tablet Take 1 tablet varsha ry day by oral route for 7 days. 07/07/2021 12:00:00 AM EDT 1 completed levofloxacin 750 MG Oral Tablet [Levaquin] [facility] ([facility]) Prednisone 10 MG Oral Tablet prednisone 10 [...] prednisone 10 MG Oral Tablet ATH [place] ([facility]) 10 mg 07/06/2021 12:00:00 AM EDT tablet [...] 12:00: 00 AM EDT ORAL active [facility] ([facility], ) 60 ACTUAT Fluticasone [...] on Thu02/20/21 at 0900, For [address] [facility] Medication administered onsite levothyroxine (SYNTHROID) tablet 137 mcg 02/20/2021 09:00: 00 AM EDT 137 ug Oral active 137 mcg, Oral, Every morning, First dose on Thu02/20/21 at 0900, For [address] [facility] Medication administered onsite Simvastatin 20 MG Oral Tablet simvastatin (ZOCOR) tabl et 40 mg simvastatin (ZOCOR) tablet 40 mg 02/20/2021 09:00:00 AM EDT 40 mg Oral active 40 mg, Oral, Every morning, First dose on Thu02/20/21 at 0900, For [address] [facility] Medication administered onsite metoprolol (LOPRESSOR) split tablet 12.5 mg [id number] 02/20/2021 09:00:00 AM EDT 12.5 mg Oral active 12.5 mg, Oral, Every morning, First dose on Thu02/20/21 at 0900, For [address] [facility] Medication administered onsite tiotropium - olodaterol (STIOLTO RESPIMAT) inhalation spray 2 puff [id number] 02/20/2021 09:00:00 AM EDT 2 {puff} Inhalation active 2 puff, Inhalation, Every morning, First dose on Thu02/20/21 at 0900, For [address] [facility] Medication administered onsite pantoprazole 40 MG Delayed Release Oral Tablet pantoprazole (PROTONIX) EC tablet 40 mg pantoprazole (PROTONIX) EC tablet 40 mg 02/20/2021 09:00:00 AM E DT 40 mg Oral active 40 mg, Ora l, Daily Standard, First dose on Thu02/20/21 at 0900, For 30 days
Do not crush or chew
[facility] Medication administered onsite Acetaminophen 325 MG Oral Tablet Acetaminophen 325 MG Oral Tablet (Tylenol) Acetaminophen 325 MG Oral Tablet (Tylenol) 02/20/2021 12:00:00 AM EDT 650 mg Oral active Take 2 tablets by [facility] every 6 (six) hours for [address] [facility] Docusate Sodium 100 MG Oral Capsule Docu sate Sodium 100 MG Oral Capsule (COLACE) Docusate Sodium 100 MG Oral Capsule (COLACE) 02/20/2021 12:00:00 AM EDT 100 mg Oral active Take 1 capsule by mouth Two Times Daily for [address] [facility] tramadol hydrochloride 50 MG Oral Tablet traMADol HCl 50 MG Oral Tablet (ULTRAM) traMADol HCl 50 MG Oral Tablet (ULTRAM) 02/20/2021 12:00:00 AM EDT 50 mg Oral active Take 1 tablet by mouth every 6 (six) hours as needed for up to 2 days, Max Daily Dose: [address] [facility] 50 mg 02/20/2021 12:00:00 AM EDT tablet 4 TAKE ONE TABLET BY MOUTH EVERY 6 HOURS NEEDED FOR UP TO 2 DAYS, MAXIMUM DAILY DOSE = FOUR TABLETS TAKE ONE TABLET BY MOUTH EVERY 6 HOURS NEEDED FOR UP TO 2 DAYS, MAXIMUM DAILY DOSE = FOUR TABLETS SOLD: 02/20/2021 [facility] 100 mg 02/20/2021 12:00:00 AM EDT capsule 20 TAKE ONE CAPSULE BY MOUTH TWICE A DAY FOR 10 DAYS TAKE ONE CAPSULE BY MOUTH TWICE A DAY FOR 10 DAYS SOLD : 02/20/2021 [facility] Docusate Sodium 100 MG Oral Capsule docusate sodium (C OLACE) capsule 100 mg docusate sodium (COLACE) capsule 100 mg 02/19/2021 09:00:00 PM EDT 100 mg Oral active 100 mg, Oral, 2 Times Daily, First dose on Thu02/19/21 at 2100, For [address] [facility] Medication administered onsite heparin (porcine) 5000 UNIT/ML injection 5,000 Units [id number] 02/19/2021 05:00:00 PM EDT 5000 U Subcutaneous active 5,000 Units, Subcutaneous, Three Times Daily Standard, First dose on Thu02/19/21 at 1700, For [address] [facility] Medication administered onsite NaCl infusion 0.9 % [id number] 02/19/2021 01:15:00 PM EDT Intravenous aborted at 100 mL/hr, Intrav enous, Continuous, Starting on Thu02/19/21 at 1315, For [address] [facility] Medication administered onsite Acetaminophen 325 MG Oral Tablet acetaminophen (TYLENO L) tablet 650 mg acetaminophen (TYLENOL) tablet 650 mg 02/19/2021 01:15:00 PM EDT 65 0 mg Oral active 650 mg, Oral, E very 6 hours, First dose on Thu02/19/21 at 1315, For 30 days
Maximum daily dose of acetaminophen is 3,000 mg from all sources in [address]
[facility] Medication administered onsite tramadol hydrochloride 50 MG Oral Tablet tramadol (ULT JEREMY) tablet 50 mg tramadol (ULTRAM) tablet 50 mg 02/19/2021 01:06:10 PM EDT 50 mg Oral active 50 mg, Oral, Every 6 hours PRN, Moderate Pain (Pain Scale Score 4-6), Starting on Thu02/19/21 at 1306, For [address] [facility] Medication administered onsite ondansetron (ZOFRAN) injection 4 mg [id number] 02/19/2021 01:02:4 8 PM EDT 4 mg Intravenous active 4 mg, In travenous, Every 8 hours PRN, Nausea, Starting on Thu02/19/21 at 1302, For [address] [facility] Medication administered onsite albuterol (PROVENTIL HFA) inhaler 2 puff [id number] 02/19/2021 12:55:42 PM EDT 2 {puff} Inhalation active 2 pu ff, Inhalation, Every 4 hours PRN, Wheezing, Shortness of Breath, Starting on Thu02/19/21 at 1255, For 4 days
Shake the inhaler well before each spray.
[facility] Medication administered onsite Albuterol Sulfate HFA 108 (90 Base) MCG/ ACT Inhalation Aerosol Solution (PROVENTIL HFA) [id number] 01/08/2021 12:00:00 AM EDT 2 {puff} Inha lation active Inhale 2 puffs into the lung s every 4 (four) hours as needed [facility] 81 mg 12/27/2020 12:00:00 AM EDT [...] route BID [facility] ([facility]) 2 mg 11/14/2020 12:00:00 AM [...] active M EDENT ([facility]) Prednisone 20 MG Oral Tablet Prednisone 10/11/2020 12:00:00 AM EST ORAL active MEDENT ([facility]) doxycycline hyclate 100 MG Oral Capsule DOXYCYCLINE [...] min before swallowing. [facility] ([facility]) Estradiol 2 MG Oral Tablet estradiol 2 mg tablet estradiol 2 mg tablet 07/13/2020 12:00:00 AM EDT completed take 1 tablet by po daily. Allow to dissolve under the tongue x 30 min before swallowing. [facility] ([facility]) 137 mcg 06/22/2020 12:00:00 [...] 06/20/2020 12:00:00 AM EDT ORAL completed MEDENT ([facility] ) BLOOD SUGAR DIAGNOSTIC [...] Capsule [Prometrium] [facility] ([facility]) 40 mg 05/15/2020 12:00:00 AM [...] every day [facility] ([facility]) tramadol hydrochloride 50 MG Oral Tablet tramadol 50 mg tablet TAKE ONE TABLET BY MOUTH EVERY 6 HOURS NEEDED FOR UP TO 2 DAYS MAXIMUM DAILY DOSE FOUR TABLETS tramadol 50 mg tablet TAKE ONE TABLET BY MOUTH EVERY 6 HOURS NEEDED FOR UP TO 2 DAYS MAXIMUM DAILY DOSE FOUR TABLETS completed tramadol hydrochloride 50 MG Oral Tablet [place] ([facility]) Prednisone 20 MG Oral Tablet prednisone 20 mg tablet TAKE ONE TABLET BY MOUTH TWO TIMES A DAY FOR 4 DAYS prednisone 20 mg tablet TAKE ONE TABLET BY MOUTH TWO TIMES A DAY FOR 4 DAYS completed prednisone 20 MG Oral Tablet [place] ([facility]) doxycycline hyclate 100 MG Oral Capsule doxycycline hyclate 100 mg capsule TAKE ONE CAPSULE BY MOUTH TWICE A DAY FOR 10 DAYS doxycycline hyclate 100 mg capsule TAKE ONE CAPSULE BY MOUTH TWICE A DAY FOR 10 DAYS completed doxycycline hyclate 100 MG Oral Capsule [facility]) Finasteride 5 MG Oral Tablet finasteride 5 mg tablet finasteride 5 mg tablet completed finasteride 5 MG Oral Tablet [place] ([facility]) doxycycline hyclate 100 MG Oral Capsule doxycycline hyclate 100 mg capsule TAKE ONE CAPSULE BY MOUTH TWICE A DAY FOR 10 DAYS doxycycline hyclate 100 mg capsule TAKE ONE CAPSULE BY MOUTH TWICE A DAY FOR 10 DAYS completed doxycycline hyclate 100 MG Oral Capsule [facility]) 1 ML Leuprolide Acetate 3.75 MG/ML Prefi lled Syringe [Lupron] Lupron Depot 3.75 mg intramuscular syringe kit INJECT 3.75MG MONTHLY Lupron Depot 3.75 mg intramuscular syringe kit INJECT 3.75MG MONTHLY completed 1 ML leuprolide acetate 3.75 MG/ML Prefilled Syringe [Lupron] [place] ([facility]) Finasteride 5 MG Oral Tablet finasteride 5 mg tablet finasteride 5 mg tablet completed finasteride 5 MG Oral Tablet [place] ([facility]) Levothyroxine Sodium 0.025 MG Oral Table t [Levo-T] Levo-T 25 mcg tablet Take 1 tablet every day by oral route. Levo-T 25 mcg tablet Take 1 tablet every day by oral route. 1 completed le vothyroxine sodium 0.025 MG Oral Tablet [Levo-T] [place] ([facility]) Finasteride 5 MG Oral Tablet finasteride 5 mg tablet finasteride 5 mg tablet completed finasteride 5 MG Oral Tablet [place] ([facility]) Clarithromycin 500 MG Oral Tablet clarit hromycin 500 mg tablet TAKE ONE TABLET BY MOUTH EVERY 12 HOURS FOR 10 DAYS clarithromycin 500 mg tablet TAKE ONE TA BLET BY MOUTH EVERY 12 HOURS FOR 10 DAYS c ompleted clarithromycin 500 MG Oral Tablet [place] ([facility]) doxycycline hyclate 100 MG Oral Capsule doxycycline hyclate 100 mg capsule TAKE ONE CAPSULE BY MOUTH TWICE A DAY FOR 10 DAYS doxycycline hyclate 100 mg capsule TAKE ONE CAPSULE BY MOUTH TWICE A DAY FOR 10 DAYS completed doxycycline hyclate 100 MG Oral Capsule [place] ([facility]) Progesterone 100 MG Oral Capsule progesterone microniz ed 100 mg capsule progesterone micronized 100 mg capsule completed progesterone 100 MG Oral Capsule [place] ([facility]) ammonium lactate 120 MG/ML Topical Cream ammonium lactate 12 % topical cream APPLY TO FEET DAILY ammonium lactate 12 % topical cream APPLY TO FEET DAILY completed ammonium lactate 120 M G/ML Topical Cream [place] ([facility]) Clarithromycin 500 MG Oral Tablet clarit hromycin 500 mg tablet TAKE ONE TABLET BY MOUTH EVERY 12 HOURS FOR 10 DAYS clarithromycin 500 mg tablet TAKE ONE TA BLET BY MOUTH EVERY 12 HOURS FOR 10 DAYS c ompleted clarithromycin 500 MG Oral Tablet [place] ([facility]) Prednisone 20 MG Oral Tablet prednisone 20 mg tablet TAKE ONE TABLET BY MOUTH TWO TIMES A DAY FOR 4 DAYS prednisone 20 mg tablet TAKE ONE TABLET BY MOUTH TWO TIMES A DAY FOR 4 DAYS completed pred[facility]one 20 [facility] Progesterone 100 MG Oral Capsule progesterone microniz ed 100 mg capsule progesterone micronized 100 mg capsule 2.00 {capsule} ORAL completed take 2 capsule by oral route every day for 12 days in the evening sequentially per 28 day cycle [facility] ([facility]) Clarithromycin 500 MG Oral Tablet clarit hromycin 500 mg tablet TAKE ONE TABLET BY MOUTH EVERY 12 HOURS FOR 10 DAYS clarithromycin 500 mg tablet TAKE ONE TA BLET BY MOUTH EVERY 12 HOURS FOR 10 DAYS c ompleted clarithromycin 500 MG Oral Tablet [place] ([facility]) Azithromycin 250 MG Oral Tablet azithrom ycin 250 mg tablet TAKE TWO TABLETS BY MOUTH ONCE DAILY FOR 1 DAY THEN TAKE ONE TABLET BY MOUTH ONCE DAILY FOR 4 DAYS azithromycin 250 mg tablet TAKE TWO TABLETS BY MOUTH ONCE DAILY FOR 1 DAY THEN TAKE ONE TABLET BY MOUTH ONCE DAILY FOR 4 DAYS completed azithromycin 250 MG Oral Tablet [place] ([facility]) ammonium lactate 120 MG/ML Topical Cream ammonium lactate 12 % topical cream APPLY TO FEET DAILY ammonium lactate 12 % topical cream APPLY TO FEET DAILY completed ammonium lactate 120 M G/ML Topical Cream [place] ([facility]) liothyronine sodium 0.025 MG Oral Tablet liothyronine 25 mcg tablet liothyronine 25 mcg tablet completed liothyronine sodium 0.025 MG Oral Tablet [place] ([facility]) Levothyroxine Sodium 0.025 MG Oral Table t [Levo-T] Levo-T 25 mcg tablet Take 1 tablet every day by oral route. Levo-T 25 mcg tablet Take 1 tablet every day by oral route. 1 completed le vothyroxine sodium 0.025 MG Oral Tablet [Levo-T] [place] ([facility]) Estradiol 2 MG Oral Tablet estradiol 2 mg tablet estradiol 2 mg tab let 1 {tablet} ORAL completed take 1 tablet by oral route every day [facility] ([facility]) Progesterone 100 MG Oral Capsule progesterone microniz ed 100 mg capsule progesterone micronized 100 mg capsule completed progesterone 100 MG Oral Capsule [place] ([facility]) Finasteride 5 MG Oral Tablet finasteride 5 mg tablet finasteride 5 mg tablet 0.5 {tablet} ORAL completed take 0.5 tablet by oral route every day [facility] Levothyroxine Sodium 0.025 MG Oral Table t [Levo-T] Levo-T 25 mcg tablet Take 1 tablet every day by oral route. Levo-T 25 mcg tablet Take 1 tablet every day by oral route. 1 completed le vothyroxine sodium 0.025 MG Oral Tablet [Levo-T] [place] ([facility]) OneTouch Ultra Blue Test Strip USE DIRECTED FOUR TIMES A DAY [id number] completed OneTouch Ultra Blue Test Strip [place] ([facility]) olodaterol 0.0025 MG/ACTUAT / tiotropium 0.0025 MG/ACTUAT Metered Dose Inhaler Stiolto Respimat 2.5 mcg-2.5 mcg/actuation solution for inhalation INHALE TWO PUFFS BY MOUTH EVERY DAY Stiolto Respimat 2.5 mcg-2.5 mcg/actuati on solution for inhalation INHALE TWO PUFFS BY MOUTH EVERY DAY completed olodaterol 0.0025 MG/ACTUAT / tiotropium 0.0025 MG/ACTUAT Inhalation [place] ([facility]) Prednisone 20 MG Oral Tablet prednisone 20 mg tablet TAKE ONE TABLET BY MOUTH TWO TIMES A DAY FOR 4 DAYS prednisone 20 mg tablet TAKE ONE TABLET BY MOUTH TWO TIMES A DAY FOR 4 DAYS completed prednisone 20 MG Oral Tablet [place] ([facility]) Prednisone 20 MG Oral Tablet prednisone 20 mg tablet TAKE ONE TABLET BY MOUTH TWO TIMES A DAY FOR 4 DAYS prednisone 20 mg tablet TAKE ONE TABLET BY MOUTH TWO TIMES A DAY FOR 4 DAYS completed prednisone 20 MG Oral Tablet [place] ([facility]) tramadol hydrochloride 50 MG Oral Tablet tramadol 50 mg tablet TAKE ONE TABLET BY MOUTH EVERY 6 HOURS NEEDED FOR UP TO 2 DAYS MAXIMUM DAILY DOSE FOUR TABLETS tramadol 50 mg tablet TAKE ONE TABLET BY MOUTH EVERY 6 HOURS NEEDED FOR UP TO 2 DAYS MAXIMUM DAILY DOSE FOUR TABLETS completed tramadol hydrochloride 50 MG Oral Tablet [place] ([facility]) Prednisone 20 MG Oral Tablet prednisone 20 mg tablet TAKE ONE TABLET BY MOUTH TWO TIMES A DAY FOR 4 DAYS prednisone 20 mg tablet TAKE ONE TABLET BY MOUTH TWO TIMES A DAY FOR 4 DAYS completed prednisone 20 MG Oral Tablet [place] ([facility]) Lisinopril 2.5 MG Oral Tablet lisinopril 2.5 mg tablet TAKE ONE TABLET BY MOUTH ONCE DAILY lisinopril 2.5 mg tablet TAKE ONE TABLET BY MOUTH ONCE DAILY completed lisinopril 2.5 MG Oral Ta blet [place] ([facility]) Finasteride 5 MG Oral Tablet finasteride 5 mg tablet finasteride 5 mg tablet completed finasteride 5 MG Oral Tablet [place] ([facility]) Levothyroxine Sodium 0.025 MG Oral Table t [Levo-T] Levo-T 25 mcg tablet Take 1 tablet every day by oral route. Levo-T 25 mcg tablet Take 1 tablet every day by oral route. 1 completed le vothyroxine sodium 0.025 MG Oral Tablet [Levo-T] [place] ([facility]) Prednisone 20 MG Oral Tablet prednisone 20 mg tablet TAKE ONE TABLET BY MOUTH TWO TIMES A DAY FOR 4 DAYS prednisone 20 mg tablet TAKE ONE TABLET BY MOUTH TWO TIMES A DAY FOR 4 DAYS completed prednisone 20 MG Oral Tablet [place] ([facility]) Clarithromycin 500 MG Oral Tablet clarit hromycin 500 mg tablet TAKE ONE TABLET BY MOUTH EVERY 12 HOURS FOR 10 DAYS clarithromycin 500 mg tablet TAKE ONE TA BLET BY MOUTH EVERY 12 HOURS FOR 10 DAYS c ompleted clarithromycin 500 MG Oral Tablet [place] ([facility]) Finasteride 5 MG Oral Tablet finasteride 5 mg tablet finasteride 5 mg tablet completed finasteride 5 MG Oral Tablet [place] ([facility]) Docusate Sodium 100 MG Oral Capsule docu sate sodium 100 mg capsule TAKE ONE CAPSULE BY MOUTH TWICE A DAY FOR 10 DAYS docusate sodium 100 mg capsule TAKE ONE CAPSULE BY MOUTH TWICE A DAY FOR 10 DAYS completed docusate sodium 100 MG Oral Capsule [place] ([facility]) doxycycline hyclate 100 MG Oral Capsule doxycycline hyclate 100 mg capsule TAKE ONE CAPSULE BY MOUTH TWICE A DAY FOR 10 DAYS doxycycline hyclate 100 mg capsule TAKE ONE CAPSULE BY MOUTH TWICE A DAY FOR 10 DAYS completed doxycycline hyclate 100 MG Oral Capsule [place] ([facility]) Prednisone 20 MG Oral Tablet prednisone 20 mg tablet TAKE ONE TABLET BY MOUTH TWO TIMES A DAY FOR 4 DAYS prednisone 20 mg tablet TAKE ONE TABLET BY MOUTH TWO TIMES A DAY FOR 4 DAYS completed prednisone 20 MG Oral Tablet [place] ([facility]) liothyronine sodium 0.025 MG Oral Tablet liothyronine 25 mcg tablet liothyronine 25 mcg tablet completed liothyronine sodium 0.025 MG Oral Tablet [place] ([facility]) Progesterone 100 MG Oral Capsule progesterone microniz ed 100 mg capsule progesterone micronized 100 mg capsule completed progesterone 100 MG Oral Capsule [place] ([facility]) Progesterone 100 MG Oral Capsule progesterone microniz ed 100 mg capsule progesterone micronized 100 mg capsule completed progesterone 100 MG Oral Capsule [place] ([facility]) Clarithromycin 500 MG Oral Tablet clarit hromycin 500 mg tablet TAKE ONE TABLET BY MOUTH EVERY 12 HOURS FOR 10 DAYS clarithromycin 500 mg tablet TAKE ONE TA BLET BY MOUTH EVERY 12 HOURS FOR 10 DAYS c ompleted clarithromycin 500 MG Oral Tablet [place] ([facility]) tramadol hydrochloride 50 MG Oral Tablet tramadol 50 mg tablet TAKE ONE TABLET BY MOUTH EVERY 6 HOURS NEEDED FOR UP TO 2 DAYS MAXIMUM DAILY DOSE FOUR TABLETS tramadol 50 mg tablet TAKE ONE TABLET BY MOUTH EVERY 6 HOURS NEEDED FOR UP TO 2 DAYS MAXIMUM DAILY DOSE FOUR TABLETS completed tramadol hydrochloride 50 MG Oral Tablet [place] ([facility]) liothyronine sodium 0.025 MG Oral Tablet liothyronine 25 mcg tablet liothyronine 25 mcg tablet completed liothyronine sodium 0.025 MG Oral Tablet [place] ([facility]) Azithromycin 250 MG Oral Tablet azithrom ycin 250 mg tablet TAKE TWO TABLETS BY MOUTH ONCE DAILY FOR 1 DAY THEN TAKE ONE TABLET BY MOUTH ONCE DAILY FOR 4 DAYS azithromycin 250 mg tablet TAKE TWO TABLETS BY MOUTH ONCE DAILY FOR 1 DAY THEN TAKE ONE TABLET BY MOUTH ONCE DAILY FOR 4 DAYS completed azithromycin 250 MG Oral Tablet [place] ([facility]) 1 ML Leuprolide Acetate 3.75 MG/ML Prefi lled Syringe [Lupron] Lupron Depot 3.75 mg intramuscular syringe kit INJECT 3.75MG MONTHLY Lupron Depot 3.75 mg intramuscular syringe kit INJECT 3.75MG MONTHLY completed 1 ML leuprolide acetate 3.75 MG/ML Prefilled Syringe [Lupron] [place] ([facility]) Levothyroxine Sodium 0.025 MG Oral Table t [Levo-T] Levo-T 25 mcg tablet Take 1 tablet every day by oral route. Levo-T 25 mcg tablet Take 1 tablet every day by oral route. 1 completed le vothyroxine sodium 0.025 MG Oral Tablet [Levo-T] [place] ([facility]) liothyronine sodium 0.025 MG Oral Tablet liothyronine 25 mcg tablet liothyronine 25 mcg tablet completed liothyronine sodium 0.025 MG Oral Tablet [place] ([facility]) Finasteride 5 MG Oral Tablet finasteride 5 mg tablet finasteride 5 mg tablet completed finasteride 5 MG Oral Tablet [place] ([facility]) liothyronine sodium 0.025 MG Oral Tablet liothyronine 25 mcg tablet liothyronine 25 mcg tablet completed liothyronine sodium 0.025 MG Oral Tablet [place] ([facility]) Docusate Sodium 100 MG Oral Capsule docu sate sodium 100 mg capsule TAKE ONE CAPSULE BY MOUTH TWICE A DAY FOR 10 DAYS docusate sodium 100 mg capsule TAKE ONE CAPSULE BY MOUTH TWICE A DAY FOR 10 DAYS completed docusate sodium 100 MG Oral Capsule [place] ([facility]) doxycycline hyclate 100 MG Oral Capsule doxycycline hyclate 100 mg capsule TAKE ONE CAPSULE BY MOUTH TWICE A DAY FOR 10 DAYS doxycycline hyclate 100 mg capsule TAKE ONE CAPSULE BY MOUTH TWICE A DAY FOR 10 DAYS completed doxycycline hyclate 100 MG Oral Capsule [place] ([facility]) OneTouch Ultra Blue Test Strip USE DIRECTED FOUR TIMES A DAY [id number] completed OneTouch Ultra Blue Test Strip [place] ([facility]) Levothyroxine Sodium 0.025 MG Oral Table t [Levo-T] Levo-T 25 mcg tablet Take 1 tablet every day by oral route. Levo-T 25 mcg tablet Take 1 tablet every day by oral route. 1 completed le vothyroxine sodium 0.025 MG Oral Tablet [Levo-T] [place] ([facility]) doxycycline hyclate 100 MG Oral Capsule doxycycline hyclate 100 mg capsule TAKE ONE CAPSULE BY MOUTH TWICE A DAY FOR 10 DAYS doxycycline hyclate 100 mg capsule TAKE ONE CAPSULE BY MOUTH TWICE A DAY FOR 10 DAYS completed doxycycline hyclate 100 MG Oral Capsule [place] ([facility]) Progesterone 100 MG Oral Capsule progesterone microniz ed 100 mg capsule progesterone micronized 100 mg capsule completed progesterone 100 MG Oral Capsule [place] ([facility]) doxycycline hyclate 100 MG Oral Capsule doxycycline hyclate 100 mg capsule TAKE ONE CAPSULE BY MOUTH TWICE A DAY FOR 10 DAYS doxycycline hyclate 100 mg capsule TAKE ONE CAPSULE BY MOUTH TWICE A DAY FOR 10 DAYS completed doxycycline hyclate 100 MG Oral Capsule [place] ([facility]) liothyronine sodium 0.025 MG Oral Tablet liothyronine 25 mcg tablet liothyronine 25 mcg tablet completed liothyronine sodium 0.025 MG Oral Tablet [place] ([facility]) Levothyroxine Sodium 0.025 MG Oral Table t [Levo-T] Levo-T 25 mcg tablet Take 1 tablet every day by oral route. Levo-T 25 mcg tablet Take 1 tablet every day by oral route. 1 completed le vothyroxine sodium 0.025 MG Oral Tablet [Levo-T] [place] ([facility]) Metoprolol Tartrate 25 MG Oral Tablet me toprolol tartrate 25 mg tablet TAKE ONE TABLET BY MOUTH ONCE DAILY metoprolol tartrate 25 mg tablet TAKE ON E TABLET BY MOUTH ONCE DAILY completed metoprolol tartrate 25 MG Oral Tablet [place] ([facility]) liothyronine sodium 0.025 MG Oral Tablet liothyronine 25 mcg tablet liothyronine 25 mcg tablet completed liothyronine sodium 0.025 MG Oral Tablet [place] ([facility]) Finasteride 5 MG Oral Tablet finasteride 5 mg tablet finasteride 5 mg tablet completed finasteride 5 MG Oral Tablet [place] ([facility]) Metoprolol Tartrate 25 MG Oral Tablet me toprolol tartrate 25 mg tablet TAKE ONE TABLET BY MOUTH ONCE DAILY metoprolol tartrate 25 mg tablet TAKE ON E TABLET BY MOUTH ONCE DAILY completed metoprolol tartrate 25 MG Oral Tablet [place] ([facility]) Docusate Sodium 100 MG Oral Capsule docu sate sodium 100 mg capsule TAKE ONE CAPSULE BY MOUTH TWICE A DAY FOR 10 DAYS docusate sodium 100 mg capsule TAKE ONE CAPSULE BY MOUTH TWICE A DAY FOR 10 DAYS completed docusate sodium 100 MG Oral Capsule [place] ([facility]) Insurance Providers Payer name Policy type / Coverage type Policy ID Covered alliance party ID Covered alliance party's relationship to herrera Policy Herrera Plan Information Medicaid S [id number] S [id number] Managed Care - Community Plan [facility] P [id number] S [id number] Managed Care - [facility] P [id number] S [id number] Managed Care - [facility] O [id number] S [id number] [facility] Community Plan Commercial [id number] Self [facility] Community Plan Commercial [id number] Self [id number] Managed Care - Community Plan [employer] P [id number] S [id number] Medicaid S [id number] S [id number] Managed Care - Community Plan [employer] P [id number] S [id number] Managed Care - Community Plan [employer] P [id number] S [id number] Medicaid S [id number] S [id number] [facility] COMMUNITY PLAN MCDHMO [id number] SP [id number] [facility] Community Plan Commercial [id number] Self Medicaid [place] Medicaid [id number] Self [employer] Hmo Commercial [id number] Self [id number] Managed Care - [facility] P [id number] S [id number] [employer] Hmo Commercial [id number] Self [id number] Medicaid S [id number] [employer] COMMUNITY PLAN MCDHMO [id number] SP [id number] Managed Care - [employer] [facility] P [id number] S [id number] Medicaid S [id number] Managed Care - [employer] P [id number] S [id number] [facility] MMC [id number] self [id number] [facility] I [id number] Self [id number] [facility] I [id number] Self [id number] Medicaid S [id number] S [id number] Managed Care - [employer] P [id number] S [id number] Medicaid S [id number] S [id number] Managed Care - [employer] P [id number] S [id number] [facility] Maintenance Organization (HMO) [id number] Self [id number] [place] Med[place] Part [place] [id number] Self [id number] [place] [id number] Self [id number] [place] [id number] Self [id number] [facility] Community Plan Medigap Part B [id number] Self [id number] [facility] Medicaid Medicaid [id number] Self [id number] [facility] Community Plan Medigap Part B [id number] Self [place] [id number] Self [id number] MEDICAID [id number] SP [id number] EMED[place] [id number] SP [id number] Self Pay P [id number] S [id number] Self Pay P UNAVAILABLE S UNAVAILA BLE [facility] [id number] SP [id number] Managed Care - [facility] Community Plan P [id number] S [id number] [facility] O [id number] S [id number] Medicaid S UNAVAILABLE S UNAVAILA BLE [id number] Medicaid [place] [id number] Self [id number] [place] [id number] Self [id number] [place] [id number] Self [id number] [place] [id number] Self [id number] [place] [id number] Self [id number] MEDICAID M [id number] S [id number] [facility] Health Maintenance Organization (HMO) [id number] Self [id number] [facility] [id number] SP [id number] Medicaid [place] Part [place] [id number] Self [id number] [facility] Health Maintenance Organization (HMO) [id number] Self [id number] Problems, Conditions, and Diagnoses Code Display Name Description Problem Type Effective Dates Data Source(s) F64.9 Gender identity disorder, unspecified Ge nder identity disorder, unspecified Diagnosis [facility] GENDER DYSPORIA Diagnosis 02/19/2021 07:1 8:00 AM [facility] pretest pretest Diagnosis 02/13/2021 01:28:22 PM ED [facility] [id number] History of SARS-CoV-2 History of SARS-CoV-2 Prob louise 07/08/2021 12:00:00 AM EDT [place] ([facility]) [id number] History of orchiectomy History of Orchiectomy Problem 03/05/2021 12:00:00 AM EDT [place] ([facility]) [id number] History of orchiectomy History of Orchiectomy Problem 03/05/2021 12:00:00 AM EDT [place] ([facility]) [id number] History of orchiectomy History of Orchiectomy Problem 03/05/2021 12:00:00 AM EDT [place] ([facility]) [id number] Gender dysphoria Gender Dysphoria Problem 02/19/2021 12 :00:00 AM EDT [place] ([facility]) [id number] Essential hypertension Essential Hypertension Problem 01/21/2021 12:00:00 AM EDT [place] ([facility]) [id number] Essential hypertension Essential Hypertension Problem 01/21/2021 12:00:00 AM EDT [facility] ([facility]) [id number] Essential hypertension Essential Hypertension Problem 01/21/2021 12:00:00 AM EDT [place] ([facility]) [id number] Essential hypertension Essential Hypertension Problem 01/21/2021 12:00:00 AM EDT [place] ([facility]) [id number] Essential hypertension Essential Hypertension Problem 01/21/2021 12:00:00 AM EDT [place] ([facility]) [id number] Samson's esophagus Samson's esophagus Problem 0 10/23/2020 12:00:00 AM EST [facility] ([facility]) [id number] Type 2 diabetes mellitus Type 2 diabetes mellitus Prob louise 07/13/2020 12:00:00 AM EDT [facility] ([facility]) [id number] Disorder of thyroid gland Disorder of thyroid gland Pr oblem 07/13/2020 12:00:00 AM EDT [facility] ([facility]) [id number] Hyperlipidemia Hyperlipidemia Problem 07/13/2020 12:00: 00 AM EDT [facility] ([facility]) [id number] Type 1 diabetes mellitus without complic ation Type 1 Diabetes Mellitus without Complication Problem 07/05/2020 05:41:32 PM EDT [facility]) [id number] Type 1 diabetes mellitus without complic ation Type 1 Diabetes Mellitus without Complication Problem 07/05/2020 05:41:32 PM EDT [place] ([facility]) [id number] Type 1 diabetes mellitus without complic ation Type 1 Diabetes Mellitus without Complication Problem 07/05/2020 05:41:32 PM EDT [place] ([facility]) [id number] Type 1 diabetes mellitus without complic ation Type 1 Diabetes Mellitus without Complication Problem 07/05/2020 05:41:32 PM EDT [place] ([facility]) [id number] Type 1 diabetes mellitus without complic ation Type 1 Diabetes Mellitus without Complication Problem 07/05/2020 05:41:32 PM EDT [place] ([facility]) [id number] Acute ST segment elevation myocardial in farction Acute ST Segment Elevation Myocardial Infarction Problem 07/05/2020 05:41:32 PM EDT [place] ([facility]) [id number] Type 1 diabetes mellitus without complic ation Type 1 Diabetes Mellitus without Complication Problem 07/05/2020 05:41:32 PM EDT [place] ([facility]) [id number] Acute ST segment elevation myocardial in farction Acute ST Segment Elevation Myocardial Infarction Problem 07/05/2020 05:41:32 PM EDT [place] ([facility]) [id number] Type 1 diabetes mellitus without complic ation Type 1 Diabetes Mellitus without Complication Problem 07/05/2020 05:41:32 PM EDT [place] ([facility]) [id number] Acute ST segment elevation myocardial in farction Acute ST Segment Elevation Myocardial Infarction Problem 07/05/2020 05:41:32 PM EDT [facility] [place] ([facility]) [id number] Type 1 diabetes mellitus without complic ation Type 1 Diabetes Mellitus without Complication Problem 07/05/2020 05:41:32 PM EDT [place] ([facility]) [id number] Acute ST segment elevation myocardial in farction Acute ST Segment Elevation Myocardial Infarction Problem 07/05/2020 05:41:32 PM EDT [place] ([facility]) [id number] Type 1 diabetes mellitus without complic ation Type 1 Diabetes Mellitus without Complication Problem 07/05/2020 05:41:32 PM EDT [place] ([facility]) [id number] Acute ST segment elevation myocardial in farction Acute ST Segment Elevation Myocardial Infarction Problem 07/05/2020 05:41:32 PM EDT [place] ([facility]) [id number] Clinical finding Clinical Finding Problem 07/05/2020 05 :41:32 PM EDT [place] ([facility]) [id number] Acute ST segment elevation myocardial in farction Acute ST Segment Elevation Myocardial Infarction Problem 07/05/2020 05:41:32 PM EDT [place] ([facility]) [id number] Impotence Impotence Problem 07/14/2019 12:0 0:00 AM EDT - 01/21/2021 12:00:00 AM EDT [place] ([facility]) [id number] Impotence Impotence Problem 07/14/2019 12:0 0:00 AM EDT - 01/21/2021 12:00:00 AM EDT [place] ([facility]) [id number] Impotence Impotence Problem 07/14/2019 12:0 0:00 AM EDT - 01/21/2021 12:00:00 AM EDT [place] ([facility]) [id number] Impotence Impotence Problem 07/14/2019 12:0 0:00 AM EDT - 01/21/2021 12:00:00 AM EDT [place] ([facility]) [id number] Impotence Impotence Problem 07/14/2019 12:0 0:00 AM EDT - 01/21/2021 12:00:00 AM EDT [place] ([facility]) [id number] 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 Due to Periodontal Disease Problem 07/22/2018 12:00 :00 AM EDT - 12/11/2020 12:00:00 AM EDT [place] ([facility]) [id number] 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 Due to Periodontal Disease Problem 07/22/2018 12:00 :00 AM EDT - 12/11/2020 12:00:00 AM EDT [place] ([facility]) [id number] 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 Due to Periodontal Disease Problem 07/22/2018 12:00 :00 AM EDT - 12/11/2020 12:00:00 AM EDT [place] ([facility]) [id number] 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 Due to Periodontal Disease Problem 07/22/2018 12:00 :00 AM EDT - 12/11/2020 12:00:00 AM EDT [place] ([facility]) [id number] 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 Due to Periodontal Disease Problem 07/22/2018 12:00 :00 AM EDT - 12/11/2020 12:00:00 AM EDT [place] ([facility]) [id number] 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 Due to Periodontal Disease Problem 07/22/2018 12:00 :00 AM EDT - 12/11/2020 12:00:00 AM EDT [place] ([facility]) [id number] 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 Due to Periodontal Disease Problem 07/22/2018 12:00 :00 AM EDT - 12/11/2020 12:00:00 AM EDT [place] ([facility]) [id number] Coronary arteriosclerosis Coronary Arteriosclerosis Pr oblem 12/02/2016 12:00:00 AM EDT - 12/11/2020 12:00:00 AM EDT [place] ([facility]) [id number] Coronary arteriosclerosis Coronary Arteriosclerosis Pr oblem 12/02/2016 12:00:00 AM EDT - 12/11/2020 12:00:00 AM EDT [place] ([facility]) [id number] Coronary arteriosclerosis Coronary Arteriosclerosis Pr oblem 12/02/2016 12:00:00 AM EDT - 12/11/2020 12:00:00 AM EDT [place] ([facility]) [id number] Coronary arteriosclerosis Coronary Arteriosclerosis Pr oblem 12/02/2016 12:00:00 AM EDT - 12/11/2020 12:00:00 AM EDT [place] ([facility]) [id number] Coronary arteriosclerosis Coronary Arteriosclerosis Pr oblem 12/02/2016 12:00:00 AM EDT - 12/11/2020 12:00:00 AM EDT [place] ([facility]) [id number] Coronary arteriosclerosis Coronary Arteriosclerosis Pr oblem 12/02/2016 12:00:00 AM EDT - 12/11/2020 12:00:00 AM EDT [place] ([facility]) [id number] Coronary arteriosclerosis Coronary Arteriosclerosis Pr oblem 12/02/2016 12:00:00 AM EDT - 12/11/2020 12:00:00 AM EDT [place] ([facility]) [id number] Finding of esophagus Finding of Esophagus Problem 05/28/2016 12:00:00 AM EDT - 12/11/2020 12:00:00 AM EDT [place] ([facility]) [id number] Finding of esophagus Finding of Esophagus Problem 05/28/2016 12:00:00 AM EDT - 12/11/2020 12:00:00 AM EDT [place] ([facility]) [id number] Finding of esophagus Finding of Esophagus Problem 05/28/2016 12:00:00 AM EDT - 12/11/2020 12:00:00 AM EDT [place] ([facility]) [id number] Finding of esophagus Finding of Esophagus Problem 05/28/2016 12:00:00 AM EDT - 12/11/2020 12:00:00 AM EDT [place] ([facility]) [id number] Finding of esophagus Finding of Esophagus Problem 05/28/2016 12:00:00 AM EDT - 12/11/2020 12:00:00 AM EDT [place] ([facility]) [id number] Finding of esophagus Finding of Esophagus Problem 05/28/2016 12:00:00 AM EDT - 12/11/2020 12:00:00 AM EDT [place] ([facility]) [id number] Finding of esophagus Finding of Esophagus Problem 05/28/2016 12:00:00 AM EDT - 12/11/2020 12:00:00 AM EDT [place] ([facility]) [id number] Clinical finding Clinical Finding Problem 014 12:00:00 AM EDT - 07/11/2020 12:00:00 AM EDT [place] ([facility]) [id number] Clinical finding Clinical Finding Problem 014 12:00:00 AM EDT - 07/11/2020 12:00:00 AM EDT [place] ([facility]) [id number] Clinical finding Clinical Finding Problem 014 12:00:00 AM EDT - 07/11/2020 12:00:00 AM EDT [place] ([facility]) [id number] Clinical finding Clinical Finding Problem 014 12:00:00 AM EDT - 07/11/2020 12:00:00 AM EDT [place] ([facility]) [id number] Clinical finding Clinical Finding Problem 014 12:00:00 AM EDT - 07/11/2020 12:00:00 AM EDT [place] ([facility]) [id number] Clinical finding Clinical Finding Problem 014 12:00:00 AM EDT - 07/11/2020 12:00:00 AM EDT [place] ([facility]) [id number] Clinical finding Clinical Finding Problem 014 12:00:00 AM EDT - 07/11/2020 12:00:00 AM EDT [place] ([facility]) [id number] Clinical finding Clinical Finding Problem 014 12:00:00 AM EDT - 07/11/2020 12:00:00 AM EDT [place] ([facility]) [id number] Clinical finding Clinical Finding Problem 014 12:00:00 AM EDT - 07/11/2020 12:00:00 AM EDT [place] ([facility]) [id number] Clinical finding Clinical Finding Problem 12/11/2020 12 :00:00 AM EDT [place] ([facility]) [id number] Acute ST segment elevation myocardial in farction Acute ST Segment Elevation Myocardial Infarction Problem 02/12/2021 12:00:00 AM EDT [place] ([facility]) [id number] Clinical finding Clinical Finding Problem 12/11/2020 12 :00:00 AM EDT [place] ([facility]) [id number] Acute ST segment elevation myocardial in farction Acute ST Segment Elevation Myocardial Infarction Problem 02/12/2021 12:00:00 AM EDT [place] ([facility]) [id number] Clinical finding Clinical Finding Problem 12/11/2020 12 :00:00 AM EDT [place] ([facility]) [id number] Acute ST segment elevation myocardial in farction Acute ST Segment Elevation Myocardial Infarction Problem 02/12/2021 12:00:00 AM EDT Loli ANNE ([facility]) [id number] Clinical finding Clinical Finding Problem 12/11/2020 12 :00:00 AM EDT [place] ([facility]) [id number] Acute ST segment elevation myocardial in farction Acute ST Segment Elevation Myocardial Infarction Problem 02/12/2021 12:00:00 AM EDT A THENLoli ([facility]) [id number] Clinical finding Clinical Finding Problem 12/11/2020 12 :00:00 AM EDT [place] ([facility]) [id number] Clinical finding Clinical Finding Problem 12/11/2020 12 :00:00 AM EDT [place] ([facility]) [id number] Clinical finding Clinical Finding Problem 12/11/2020 12 :00:00 AM EDT [place] ([facility]) Surgeries/Procedures Procedure Description Date Indications Data Source(s) Diabetic Foot Exam 07/22/2021 12:00:00 AM EDT [facility] ([facility] ) OFFICE OUTPATIENT VISIT 25 MINUTES 07/22/2021 12:00:00 AM EDT [facility] ([facility]) Spirometry 05/29/2021 12:00:00 AM EDT Daphnie ORDOÑEZ ([facility], ) OFFICE OUTPATIENT VISIT 25 MINUTES 05/29/2021 12:00:00 AM EDT [facility] ([facility], ) DEMO&/EVAL OF PT UTILIZ AERSL GEN/NEB/INHLR/IPPB 04/17 12:00:00 AM EDT [facility] ([facility], ) OFFICE OUTPATIENT VISIT 25 MINUTES 04/17/2021 12:00:00 AM EDT [facility] ([facility], ) EST PT TG EXP PROB FOCUSED 04/12/2021 12 :00:00 AM EDT - 04/12/2021 12:00:00 AM EDT [place] ([facility]) OFFICE OUTPATIENT NEW 45 MINUTES 04/03/2021 12:00:00 A M EDT LAURA ([facility], ) Amb Glucose Monitoring Interpretation And Report 03/21 12:00:00 AM EDT [facility] ([facility]) OFFICE OUTPATIENT VISIT 25 MINUTES 03/21/2021 12:00:00 AM EDT [facility] ([facility]) POCT GLUCOSE, DOCKED <td>POCT GLUCOSE, DOCKED</td ><td>Routine</td><td>02/19/2021 11:58 PM EDT</td><td></td><td> </td> 02/19/2021 11:58:00 PM [facility] GLUCOSE QUANTITATIVE BLOOD XCPT REAGENT STRIP <td>POCT GLUCOSE, DOCKED</td><td>Routine</td><td>02/19/2021 1:34 PM EDT</td><td></td><td> </td> 02/19/2021 01:34:00 PM [facility] ORCHIECTOMY, SIMPLE, W/WO PROSTHESIS, SCROTAL/INGUINAL APPROACH <td>ORCHIECTOMY, SIMPLE, W/WO PROSTHESIS, SCROTAL/INGUINAL APPROACH</td><td></td><td>02/19/2021 10:37 AM EDT</td><td> Gender dysphoria</td><td></td> 02/19/2021 10:37:00 AM EDT - 02/19/2021 01:05:00 PM EDT [facility] Gender dysphoria GLUCOSE QUANTITATIVE BLOOD XCPT REAGENT STRIP <td>POCT GLUCOSE, DOCKED</td><td>Routine</td><td>02/19/2021 8:00 AM EDT</td><td></td><td> </td> 02/19/2021 08:00:00 AM [facility] CARDIAC REPORT <td>CARDIAC REPORT</td><td>< /td><td>02/15/2021 4:23 PM EDT</td><td></td><td></td> 02/15/2021 04:23:03 PM EDT [facility] CARDIAC REPORT <td>CARDIAC REPORT</td><td>< /td><td>02/15/2021 4:22 PM EDT</td><td></td><td></td> 02/15/2021 04:22:25 PM EDT [facility] CARDIAC REPORT <td>CARDIAC REPORT</td><td>< /td><td>02/15/2021 4:21 PM EDT</td><td></td><td></td> 02/15/2021 04:21:50 PM EDT [facility] LAB RESULTS (OUTSIDE/HISTORICAL) <td>LAB RESULTS (OUTSIDE/HISTORICAL)</td><td></td><td>02/13/2021 1:10 PM EDT</td><td></td><td></td> 02/13/2021 01:10:20 PM EDT [facility] CARDIAC REPORT <td>CARDIAC REPORT</td><td>< /td><td>02/13/2021 1:09 PM EDT</td><td></td><td></td> 02/13/2021 01:09:27 PM EDT [facility] LAB RESULTS (OUTSIDE/HISTORICAL) <td>LAB RESULTS (OUTSIDE/HISTORICAL)</td><td></td><td>02/11/2021 2:16 PM EDT</td><td></td><td></td> 02/11/2021 02:16:56 PM EDT [facility] LAB RESULTS (OUTSIDE/HISTORICAL) <td>LAB RESULTS (OUTSIDE/HISTORICAL)</td><td></td><td>02/11/2021 2:16 PM EDT</td><td></td><td></td> 02/11/2021 02:16:10 PM EDT [facility] Amb Glucose Monitoring Interpretation And Report 12/14 12:00:00 AM EDT [facility] ([facility]) OFFICE OUTPATIENT VISIT 25 MINUTES 12/14/2020 12:00:00 AM EDT [facility] ([facility]) Psychiatric Diag Eval W/Medical Service 11/15/2020 12: 00:00 AM EST [facility] ([facility]) UPPER NDSC BIOPSY SINGLE/MULTIPLE 11/05/2020 12:00:00 AM EST [facility] ([facility]) CVR Cuff Cutter.Svc. STI / H 10/12/2020 12:00:00 AM EST - 10/12/2020 12:00:00 AM EST [facility] ([facility]) EST PT TG DETAILED 10/12/2020 12:00:00 AM EST - 2020 12:00:00 AM EST [facility] ([facility]) Amb Glucose Monitoring Interpretation And Report 09/20 12:00:00 AM EST [facility] ([facility] ) TG PHONE EST PT E/M BY PHYS 11-20 MIN 1 12:00:00 AM EDT - 07/13/2020 12:00:00 AM EDT [facility] ([facility]) Results ID Date Data Source [id number] 07/22/2021 10:03:00 AM EDT [facility] ([facility]) Name Value Range Interpretation Code Description Data Whit rce(s) Supporting Document(s) Glucose [Mass/volume] in Serum or Plasma [address] [facility] Hemoglobin A1c/Hemoglobin.total in Blood 10.[facility]) ID Date Data Source [id number] 07/02/2021 08:00:00 PM EDT [facility] Name Value Range Interpretation Code Description Data Whit rce(s) Supporting Document(s) SARS coronavirus 2 RNA [Presence] in Res piratory specimen by DONAVAN with probe detection POSITIVE [facility] This lab was ordered by [facility] a nd reported by [facility]. ID Date Data Source [id number] 06/03/2021 09:00:00 AM EDT [facility] ([facility]) Name Value Range Interpretation Code Description Data Whit rce(s) Supporting Document(s) Creatinine [Mass/volume] in Urine 49.8 mg/dL [facility] Microalbumin [Mass/volume] in Urine Laboratory test [facility]) Microalbumin/Creatinine [Mass Ratio] in Urine 10.0 MCG/MG 0.0-30.0 [facility] ([facility]) THE [employer] STATES THAT MICROALBUMINURIA IS PRESENT IF THE MICROALBUMIN/CREATININE RATIO EXCEEDS 30 MCG/MG. THE THRESHOLD FOR CLINICAL ALBUMINURIA IS REACHED AT 300 MCG/MG. THE CLASSIFICATION OF A PATIENT SHOULD BE BASED UPON AT LEAST 2 OF 3 ABNORMAL RESULTS ON SPECIMENS COLLECTED WITHIN A 3 TO 6 MONTH TIME FRAME. ID Date Data Source [id number] 06/03/2021 09:00:00 AM EDT [facility] ([facility]) Name Value Range Interpretation Code Description Data Whit rce(s) Supporting Document(s) White Blood Count 6.3 10 4.0-10.0 [facility] ([facility]) Hematocrit 41.3 % 42.0-52.0 [facility] ([facility]) Red Blood Count 4.46 10 4.30-6.10 [facility] ([facility]) Hemoglobin 13.5 g/dL 13.5-17.5 [facility] ([facility]) Mean Corpuscular Volume 92.6 fl 80.0-96.0 M [facility] ([facility]) Mean Corpuscular Hemoglobin 30.3 pg 27.0-33.0 [facility] ([facility]) Mean Corpuscular HGB Conc 32.7 g/dL 32.0-36.5 [facility] ([facility]) Platelet Count, Automated 237 10 150-450 [facility] ([facility]) Red Cell Distribution Width 13.5 % 11.5-14.5 [facility] ([facility]) Nucleated Red Blood Cell % 0.0 % 0-0 [facility] ([facility]) ID Date Data Source [id number] 06/03/2021 09:00:00 AM EDT [facility] ([facility]) Name Value Range Interpretation Code Description Data Whit rce(s) Supporting Document(s) Triglycerides Level 64 mg/dL [facility]) LDL Cholesterol 71 mg/dL [facility] ([facility]) Cholesterol Level 150 mg/dL [facility] ([facility] HDL Cholesterol 66 mg/dL [facility] ([facility]) Cholesterol Risk Ratio 2.272 [facility] ([facility]) Non-HDL-C 84 mg/dL [facility] ID Date Data Source [id number] 06/03/2021 09:00:00 AM EDT [facility] ([facility] ) Name Value Range Interpretation Code Description Data Whit rce(s) Supporting Document(s) Estradiol (E2) [Moles/volume] in Serum or Plasma by Hi gh sensitivity method 139.5 pg/mL 8.0-35.0 [facility] ([facility] ) This test was developed and its performa nce characteristics determined by [facility]. It has not been cleared by the Food and Drug Administration. Methodology: Liquid chromatography tandem mass spectrometry(LC/MS/MS) Performed at: [address] [id number] Testing Engineer: Marlys Jin MD, Phone: [phone] Testosterone [Mass/volume] in Serum or Plasma 20 ng/dL [id number] [facility] ([facility] ) NORMAL RANGES ARE FOR ADULT FEMALES (OVE R 15 YRS) AND MALES (OVER 19 YRS). FOR PEDIATRIC RANGES PLE ASE CONSULT LITERATURE. ID Date Data Source [id number] 05/29/2021 12:35:00 PM EDT [facility] ([facility], ) Name Value Range Interpretation Code Description Data Whit rce(s) Supporting Document(s) FVC-Pred 5.12 L [facility] ([facility], ) PDFReport Laboratory test result [facility] ([facility], ) FVC-%Pred-Pre 60 L [facility] ([facility], ) FVC-LLN 4.16 L [facility] ([facility], ) FVC-Pre 3.12 L [facility] ([facility]) Fev1-Pre 2.58 L [facility] ([facility]) Fev1-%Pred-Pre 65 L [facility] ([facility], ) Fev1-Pred 3.93 L [facility] ([facility]) Fev1-LLN 3.12 L [facility] ([facility]) Fev6-Pred 4.92 L [facility] ([facility]) Fev6-Pre 3.12 L [facility] ([facility]) Fev6-%Pred-Pre 63 L [facility] ([facility], ) Fev6-LLN 3.99 L [facility] ([facility], ) Xjg3uko-Tgpt 77 % [facility] ([facility]) Wxg6yzb-Tuc 83 % [facility] ([facility]) Ypv1hkc-%Pred-Pre 107 % [facility] ([facility]) Wmb2jir-HAE 67 % [facility] ([facility]) Ysg0zet-Qmmr 96 % [facility] ([facility]) Nfv1zio-Buk 100 % [facility] ([facility]) Bjp9vbi-%Pred-Pre 104 % [facility] ([facility]) FEFMax-Pre 6.45 L/E/sec [facility] [facility]) FEFMax-Pred 9.84 L/E/sec MEDENT ([facility]) FEFMax-%Pred-Pre 65 L/E/sec [facility] ([facility]) [id number]-Vjgz 3.37 L/E/sec [facility] ([facility]) Wkh5498-Spw 3.08 L/E/sec [facility] ([facility]) FEFMax-LLN 7.45 L/E/sec [facility] ([facility]) Zqg4348-OQD 1.72 L/E/sec [facility] ([facility]) Cfu5556-%Pred-Pre 91 L/E/sec [facility] ([facility]) ExpTime-Pre 6.24 sec [facility] ([facility]) Ndh4obw4-Anah 80 % [facility] ([facility]) Mqd9xni9-Pwd 83 % [facility] ([facility]) Gep6dug1-%Pred-Pre 103 % [facility] ([facility]) Ibg0opc4-GSS 71 % [facility] ([facility]) ID Date Data Source [id number] 05/10/2021 03:54:54 PM EDT [facility] Name Value Range Interpretation Code Description Data Whit rce(s) Supporting Document(s) Progress Note [facility] KUJTRt1gNjSGEgIq20/ZNAueQGXad9FoIAzfEVy8TQyaNFFiN8GbOYM8qU0dLSH6TCqRSsLhJyHbZELa lbm [file] AgICAgICAgICAgICAgICAgICAgICAgICAgICAgICAg ICAgICAgICAgICAgICAgICAgICAgICAgICAgICAgICAgICAgICAgICAgICAgICAgICAgICAgICAgICAg ICANCiAgICAgICAgICAgICAgICAgICAgICAgICAgICAgICAgICAgICAgICAgICAgICAgICAgICAgICAg ICAgICAgICAgICAgICAgICAgICAgICAgICAgICAgIC AgICAgICAgICAgICANCiAgICAgICAgICAgICAgICAgICAgICAgICAgICAgICAgICAgICAgICAgICAgIC AgICAgICAgICAgICAgICAgICAgICAgICAgICAgICAgICAgICAgICAgICAgICAgICAgICAgICANCiAgIC AgICAgICAgICAgICAgICAgICAgICAgICAgICAgICAg ICAgICAgICAgICAgICAgICAgICAgICAgICAgICAgICAgICAgICAgICAgICAgICAgICAgICAgICAgICAg ICAgICANCiAgICAgICAgICAgICAgICAgICAgICAgICAgICAgICAgICAgICAgICAgICAgICAgICAgICAg ICAgICAgICAgICAgICAgICAgICAgICAgICAgICAgIC AgICAgICAgICAgICAgICANCiAgICAgICAgICAgICAgICAgICAgICAgICAgICAgICAgICAgICAgICAgIC AgICAgICAgICAgICAgICAgICAgICAgICAgICAgICAgICAgICAgICAgICAgICAgICAgICAgICAgICANCi AgICAgICAgICAgICAgICAgICAgICAgICAgICAgICAg ICAgICAgICAgICAgICAgICAgICAgICAgICAgICAgICAgICAgICAgICAgICAgICAgICAgICAgICAgICAg ICAgICAgICANCiAgICAgICAgICAgICAgICAgICAgICAgICAgICAgICAgICAgICAgICAgICAgICAgICAg ICAgICAgICAgICAgICAgICAgICAgICAgICAgICAgIC AgICAgICAgICAgICAgICAgICANCiAgICAgICAgICAgICAgICAgICAgICAgICAgICAgICAgICAgICAgIC AgICAgICAgICAgICAgICAgICAgICAgICAgICAgICAgICAgICAgICAgICAgICAgICAgICAgICAgICAgIC ANCiAgICAgICAgICAgICAgICAgICAgICAgICAgICAg ICAgICAgICAgICAgICAgICAgICAgICAgICAgICAgICAgICAgICAgICAgICAgICAgICAgICAgICAgICAg ICAgICAgICAgICANCjw/yKEzM3bckFFskpU2F9vjUe3WAg9DDS1wq1EjMUTdJEcchdEoHrfACbJpEYYq IkkKUek7PVbsEH0SeGXjC0KaL6OvQUkuXL3TJRKoTT EijXBtZZAuKIMgIcO9ZDHjDQrxHJ1WxWPsPLrrMHAbJIIhZA1WLKScL125cvHiYN1JOt7GFnEvGI2wic 5XWmMgRHAlQxuVFsi0VIhrBR2YzEDgtZGdSlToWJRSZiLqK7lsa3TbVcNsTGRJFIugOG9Wy2SkeUSqJC o+Vv3TBT0he8ZeUNwcLjXrXB2zmi1NTPuZPzTuQ5Pd rOceZODhl5nfWEVlVQ0rmLHnGTX1EVQemEBzeHxjUqydt2tpquRqbJrvNAUvTMGiCw5kYw0oLEYtSKIj MjBsWFAZOC1BEUHvJPSruZRdFIRaRLJQPE4NMBdkOMZ7ELPqmrTfkVDnJZxqKW9SBSCnueHuIgIcQCOJ DQo+Tu4CMQ0ur9WjWDnxPZCtQE5pca9GYQkFUzDaN7 F1dTGkD8Y1BEqsUh1ZTGFaTSMjCoKqURLAAKifLD7UVZ7sqvK1RG4WjUJbMKIlSVBeyIFjFLk7W59lvN KwBVarGQ1GAQZ+Ирина+Fs6VBRPlCOXbVIGjCjLkIIXBPpCxW9TaW4YFu9VbE1MkSW65lEbjhsEfXFpyTS 0LMO8nVRVoTYQIQS3ClUAirX5ixfMcWdFyWLXHMbOj G26ugSUdXHFnMIDfDPQeLl1JLVCfN2YhozHgtZlyanHaWEXpEQSRCF7QLDkkpcFilXMthQjkUI23pNpv RH1VDv9ZBjHpXT3nzl8TdRItDo6TZSFtVK0BCAPfGLQiBOJjLLC0YKUfOiPsHTtrLOSlUFLoONV3VMNf GJWaOI1FOpRzCYBdOIioOrhbZNJmZWCksx0GPCKbDG OyYPFvWrYrDVJcZEXbYQzuZJRkQPKcHWO9ADYcJKTmXH4ARuOqXOBlCHB8JYylSBNwIPSgrt6HPZHnKC WrNlNvZiIeEAIpTWBxEOenUJEjLBIuXQvvEOUeSDVeAL6NWzUbOZXnRSGxRxwsPXSdOUHgvw7VRSTlOK JfCsK0LZXkAQUqFVBbNOmuAOSeXUQ0YAT6YAOfGFQs OM5QYfDpGPMvWAN3KWsxQPNwGXKudv1NLWCmZTUiAJj8IRQqJSUnZVHkGEayUCEtDDJ9OIQeXRSeBYWp SN2TBlBeHGNlTRE2JyZsSLGmQHXnkq9AILNgXAAwTrM1FSXlFEOeUXYsZOaiCDOmHGZ8VKJ4VOBiJBLt ZY6EXhAqUANjIEdvBzYgKTJmXSPvyw4UNPCwDLYwWS HtDXBhRQLhNCAbLLgvTIDnCFC0WMp8GHJlTGCsIO2ZAzKwMKRzXWawWKqbVUMnOLTapu9EJTOqGDLdFH q7BqSzYTHmBSOaXSugAYMjJLTaMoDvGYOxLRDvHN6CNrCsFAFjRgYoJQKqJCGnSJBsgo4AAXRlKTZqWK PiPPAySHBjPRDmPUe9bmSgaUEqUGs3BU2ID4ZqysBl CuDWLx6Os681MJJ7EKJqWh3II9trVe1oAOIqZBJZIy4NIYz1HpS4XoX3CtSeHROdV8AgEJMbM4IaApY8 NxSjFFA3Ncx+VUd8EpXvDRNvZaOjPFSyNxE4UYZfHdRlFZJbNvHuATW7Xa8oNHOLMs1+DQpzdGFydHhy MTEPZaBxZoj8OWdmOLWNIb0D ID Date Data Source [id number] 03/21/2021 02:28:00 PM EDT [facility] ([facility]) Name Value Range Interpretation Code Description Data Whit rce(s) Supporting Document(s) Hemoglobin A1c/Hemoglobin.total in Blood Laboratory test result [facility] ([facility]) Glucose [Mass/volume] in Serum or Plasma 213 [facility] ([facility]) ID Date Data Source [id number] 02/26/2021 10:26:56 AM EDT [facility] Name Value Range Interpretation Code Description Data Whit rce(s) Supporting Document(s) Discharge Summary [facility] YQQOXl8rBxDZIuUg36/JTJpfRZPdv0MkHWdqJFc6IJocEYAaK4CzRJN9vX9dEPW1RMbPEzHvPxWwKiP0 m [file] ICAgICAgICAgICAgICAgICAgICAgICAgICAgICAgICAgICAgICAgICAgICAgICAgICAgICAgICAgICAg GYGwBHXlFEEwXYKiCH6ZSSQnNKMeBOMkQAWrSPIlPP AgICAgICAgICAgICAgICAgICAgICAgICAgICAgICAgICAgICAgICAgICAgICAgICAgICAgICAgICAgIC PzJHOlPSPuOEAqNKWlUHIjIDMlHFYnLR7RQVIqAHNuROGaUPIlNYTuUYBpMRTzKTUiMOAtRIOqCYMeJN AgICAgICAgICAgICAgICAgICAgICAgICAgICAgICAg RDEdLYBpXWObAGJuKEScJDAcIHKtDLXhTTFnSCAgZLOdHK1FOZPcXOOzVKEsYJWhGSItWHVjHNXwIWUm ICAgICAgICAgICAgICAgICAgICAgICAgICAgICAgICAgICAgICAgICAgICAgICAgICAgICAgICAgICAg WITdVYOwZUSpUDVqALDvYC1QSLPwBKGtSRFpDISsPU AgICAgICAgICAgICAgICAgICAgICAgICAgICAgICAgICAgICAgICAgICAgICAgICAgICAgICAgICAgIC QeMNXsLTXnOZCeRUStGFPrBFBtVDWaLIVpMO7RJERhTJPoVZYsZFJaCFLrSPSuBMRoLIFgWTCqAQTqQW AgICAgICAgICAgICAgICAgICAgICAgICAgICAgICAg RBVtXXEuIBOlNWWhDXZdOIKzLVVzSYTbNGOdKXKhHYQgERZnYE9YCVRqZKJiHYOoQTMtFTBiNHQaUEMc ICAgICAgICAgICAgICAgICAgICAgICAgICAgICAgICAgICAgICAgICAgICAgICAgICAgICAgICAgICAg YPClPDUvPELdQXCbLVZpMVQxID0OPJFoULPkQAZcWE AgICAgICAgICAgICAgICAgICAgICAgICAgICAgICAgICAgICAgICAgICAgICAgICAgICAgICAgICAgIC XuETBeOZYxILJkIBKeQJVqZIIoUJLlJBUxUDIoMX7JUMEpXIGkOFJgYTVdQOYkXDJcVBTkEIFlYEWlEL AgICAgICAgICAgICAgICAgICAgICAgICAgICAgICAg GGOqXKIkMUGjJOAsIBPtXWBdNGIyDRIdGOGrSLUmOIRwNOOoTYOmEE0HZKGyMIBkTVAsZYZhHOEaUPMm ICAgICAgICAgICAgICAgICAgICAgICAgICAgICAgICAgICAgICAgICAgICAgICAgICAgICAgICAgICAg CBHjXKPaHLHeLXIpKWQiUEUoOVMbDK3HIB24oAXzc9 L9BVEzJR3tyjl/Nq6SUYjuboLmdSKnKY6TXoJrPG8txb5VRoEmNN9fbx7KHYcACsTkE8L0bEOeRVGjMK ZUTaZuP12mEXatLg77FHsiAYNlPkThQTc4Kf8JFvSbW4fjSPOoFaZ4ZTYeIvA7YTCjSpC0CDHkDeOoHK FtLZWdLB6VBORrT551wtIcFP8YAg3PNjRtUK6fzv5G OtJdVHRuRgkOMnp3EZplSS5JzRNuhWZlPGRwHYLLUjHyD4hir3PvEzXgPBWZWCheCB4Gv3QfpSUsSXg+ Az0DKS1wg9EvBLcdRXMtSW0lwr6PWNaZYsAhB4HwqLrbFQIxy2WfAJZvWHDJhX8gZRM0MCI7ZKLrmJCp xMdkUfung7qwpnSeiNpxENXhUHFaMf2tDlRfOzFeTU c6QlYdRU0eKHhoIA2EGGE1XDnlMOGjRYKzW5yTOkHlLPCfYLAqlIllWB9CGuJbL9EohcXgxKQfLXFtKF INCj4+LPprveSaHdaNBvJ4XJFwm9OsEGz7GY4HHHIeMUkkTD9JPXLynW5pVTiiMK8DDtWzRqDhMQNCSo OnX42ytHDcEUi4O7HrVzWeFKZeJtlyCEOnOXgjDwJd ZXMgWyBdDQogID4+ID4+YEzsSZ0KJYkaioZqBOVeZy3LNXJvMJNaHQ1pXEAaSZSeC1N7bRsvDITEZiAr E9jdrirtYP1tSFVkR999tUorbdYcHST5RQNlRw8VLQWjMPF6MOVogUPvMaWsHKEVGBusFA3NoMAzLMA0 yQ6nMVmqOGQxQMKqJ7uEXnWhjGusBT01iBnwcmJraK BdDQo+Rs3CCM4dt2MwQFf1tdRiPUjoWWY9WByjIGBxVYImQZZmVKF7PZW4KOJPYlYsBWNzUZKqWAvpSC DqEUUbcz6APFSkNVIpNUW9ZfKoYDLhDEShVUkjKUGfTPGyOqDvVENvVQTaNW0ORrDpNLRvFLRpDCzxTH VaUGNfsq0CKGHeQSCjCdutXyQsZWVnDEUsBGfoTNLa BUYaORMlEIHiFWMmJU2FXuFqDJLnTXQ1FBvaTGLoHJFamf8SGFWjFXDgYpV1JORyCUGoXXTqXCsgNKJp DXRwSWJ6EZRgPCZmIC9ITlMjLJLuXCLdTYPjGIGaTIZfso0FPSFlYDLpYyHmCeQeHIUgHCCxUDfwZKRa SOTbCIQ4LFQzSTBcIM8UHkOeXEWtAYYoFHzwPEPeQR Xfik0BKQQfWIOrJvH7ExMwQOBwTMRrZCuoWLEyTAKlKkp4IJCvHZEeUB9HDsXyFDSiIKX4SowhVSXoTU Fios5GYLDeEYXsPHv5LINqTMGoGYYrVWxsLFPhKVJ8RQF7EZWoPNMbVE2ZWvBzZWTdMXOpOWelSMGvZE Ocmj1LHTItNACnCjO3LEJbMXHhZSPpAIciIXSpKYA5 GTV5WGKsZSCjCH0PBvSyDGIrHCr6IgvlXSRqXTUflz3LXZQbUXXbOvXqKHKdLDKzIMSgNVdrKEJnKCZ5 GZD9HBYlSNBdNP0IOwJmKCJlNlbjBZEtNKGfDUHqnz5JGGKgQIZvYMPyDAQzTESsMTVdUUeuSOUjEOI7 EuK5JUQaJYElBN1OQtZcVXYbEex3XgrqXKReAJTymr 1TCHXhMUTnDBOnRXErHYNqJMFaFFvoAKPiFCAlGEL5WOKyLMVwGV4SMeXyDQZxPqMbTRCiTETjLUXoxr 2PBTQxHWJiGWWhKMZpRBOtHPIxKBjnHPEzAPEpWTihDUNnJIOrJL1VDxMnJIGdWzCqFcXhFALtWMDqlx 5ZJLPtJVZlZsOnQREgDDSzBPOcGHoeUQShUUUwDOA4 LRFmVQAlPD4ALwNbXQnvOQIJIzt6SXegA7i2PHLiMf3HG2Itf8YqArOwDJWZPBsuYQ9aajYoBOQuJv3L Z8wGPlu1NrMlEAw4LDFtEtRdFRFtTHKaBiJ0OBPnFDckSZUoCf7aJUQnFbWiDLZlTqRiBIO0WKO1BJI6 TWf9QFFiHPReNRY8HfJdXN0ARr5YFtO1ENF6gSWvKa1EIiW6FHKOQfTfSN4BQOs= ID Date Data Source [id number] 02/21/2021 10:37:39 AM EDT [facility] Name Value Range Interpretation Code Description Data Whit rce(s) Supporting Document(s) Progress Note [facility] HZIVZv4aAaGFIyMn44/VLPnaJUSji3TnBXtkEBk0INtnTXRpY0KwUFE9lU0tXIC6FGaOSwBvDvHsZnFk lbm [file] RV5LUCw= ID Date Data Source [id number] 02/21/2021 10:33:22 AM EDT [facility] Name Value Range Interpretation Code Description Data Whit rce(s) Supporting Document(s) Operative Note [facility] RCCODv4xVoBHUeRc66/TWGqiNELlz4EqKXwyBGm5LOxbIEPhE0IiQYY0iQ0bVFZ6CRxSNlEeVtXoZaIe lbm [file] CiAgICAgICAgICAgICAgICAgICAgICAgICAgICAgICAgICAgICAgICAgICAgICAgICAgICAgICAgICAg ICAgICAgICAgICAgICAgICAgICAgICAgICAgICAgICAgICAgICAgICANCiAgICAgICAgICAgICAgICAg ICAgICAgICAgICAgICAgICAgICAgICAgICAgICAgIC AgICAgICAgICAgICAgICAgICAgICAgICAgICAgICAgICAgICAgICAgICAgICAgICAgICANCiAgICAgIC AgICAgICAgICAgICAgICAgICAgICAgICAgICAgICAgICAgICAgICAgICAgICAgICAgICAgICAgICAgIC AgICAgICAgICAgICAgICAgICAgICAgICAgICAgICAg ICANCiAgICAgICAgICAgICAgICAgICAgICAgICAgICAgICAgICAgICAgICAgICAgICAgICAgICAgICAg ICAgICAgICAgICAgICAgICAgICAgICAgICAgICAgICAgICAgICAgICAgICANCiAgICAgICAgICAgICAg ICAgICAgICAgICAgICAgICAgICAgICAgICAgICAgIC AgICAgICAgICAgICAgICAgICAgICAgICAgICAgICAgICAgICAgICAgICAgICAgICAgICAgICANCiAgIC AgICAgICAgICAgICAgICAgICAgICAgICAgICAgICAgICAgICAgICAgICAgICAgICAgICAgICAgICAgIC AgICAgICAgICAgICAgICAgICAgICAgICAgICAgICAg ICAgICANCiAgICAgICAgICAgICAgICAgICAgICAgICAgICAgICAgICAgICAgICAgICAgICAgICAgICAg ICAgICAgICAgICAgICAgICAgICAgICAgICAgICAgICAgICAgICAgICAgICAgICANCiAgICAgICAgICAg ICAgICAgICAgICAgICAgICAgICAgICAgICAgICAgIC AgICAgICAgICAgICAgICAgICAgICAgICAgICAgICAgICAgICAgICAgICAgICAgICAgICAgICAgICANCi AgICAgICAgICAgICAgICAgICAgICAgICAgICAgICAgICAgICAgICAgICAgICAgICAgICAgICAgICAgIC AgICAgICAgICAgICAgICAgICAgICAgICAgICAgICAg ICAgICAgICANCiAgICAgICAgICAgICAgICAgICAgICAgICAgICAgICAgICAgICAgICAgICAgICAgICAg ICAgICAgICAgICAgICAgICAgICAgICAgICAgICAgICAgICAgICAgICAgICAgICAgICANCjw/hBDyI8mt iLNiudG5A3crSm2DOn8IUL7au5ZaMQBrBHfowwBmJm iKQwVpVWSyXklBQlu7MPykDP9QoDZlX5DdR2PtRYogTY7KDFAkJOIaqXCkSSQgPSGeAqQ3DCEiEBycRJ 5OmFBqWBagMKMyNBWoOvBqQUNoVP2ZZFNkS070rdFdWo5VOd7PZyZyOT9heb9SUrRyESBuPdcJExj0YJ gqFC5DqCMvzQVeYaBgJLHLJtEoQ7gjw2XsGdSdLJYM POmcJV2Ci5BauCJjANt+Nm0AFQ4am2QxBYbpClMiVS7svg5BNTbWVrKpH9QguJdpRZ3rGSNrsUh2WCOS z4FnCOP1EYHbqTZnbUqzDlqzv2eteaAfgIcdWZDhRYUfJj8oLiSaOlRtPDO4STibCO1mHDlgLJ8WUSZ3 GUczHQMiOFZlB0uFVkRcGXEcODDyaPvfHZ3ULcQjP0 BhcmVudCAyNSAwIFINCj4+FBtousGmHhfAHiJ0UHNrk3WgRAi7GP8YDFFfPOlfJQ9ZBNRjlB9oXXdoVP 1CAuGjAuQdSRIDPoGrU64pcRTaVWb8J8MrBdFzVNPkDgbsVVFyFWwrZgXiLIPpKcFuCSotUX8+ID4+DQ abHL2NLFidiaKmMASaMc8FCYFjLBTqFJ0mUUZwPUXd V4L4bLnsNZJWPjOxM9etxxkmYO8uFXFbM729oLszcpRaPEI1KNHlVh9VGNWfOCD4PBZsnLHsTgRbYDUT WRwcLR7JcPDaBUE7mR3mIDfxAHZmZETtN0xDOqEprPcaBU66dOwhomQqsCCpXNl+Sq3JSL4qe7IiWUi5 ceEyXEoiXXP8IBnhBDIqUNGnDMCsOMC8GED2GTLTGd XoGSQwHYLqENtiOWGtCASnfp3LXYWdBNZlIxVcWEBaSFVnXFWfREyfJCZoAHR7LhF2IZFoVWQhHU2QVo PjNRPxCVCaNMahMIIcNQAjqm8TDLSyDYVdVhTyHQAaHHMbUKSzHNsdLWShKVVhWnE7OHJhGMFnUM3RNc JlKPNzDAE3TxXcOMOmDRZfpf0QJDVyAZSrOof4MhNy QOBgMXSmOXrhWZYzFLY3CsW3GPJbPCSbHQ2ZCsSeFMWvFDw5ShMiMQVpYWBxtn6DDZIcFXCeLUHiMyHr AXAxJTTxTLciVLIlLUR2LEzjLXWdNIGmEE1MObWkZVJlNTdbEjLyYEPqBMNgcc0ZNGQpELXsEXL9XyDv VZOgVSGvLEqaHIYtTAQcEDViBEMfBXOjXS5HPpMlFH WcOEH5YoItBVIzOAXwao2ZDYPzLRIfJPunWYJfKZEtPGMfFPtxNKMmJBPqShekZCQsEAWbKA4CVlZsAM DsLOF6KefvGCMnMSThes6GCOHaHBKdVdI1ICKyXKXxCBNnMMibUYBvMBJgFXGqWYLvXWWtZX5SZpWnXG CkBPAyDXEiDLFbGEOact8JYNUlSBUiDmBpOVStTKLf URBcOElyBNKsBMMwQQG0FRTkAIFjWX1CAwBoYUJmISA3SQwjNGXmRBFjuw6EMIYiGWJzXBO4WXFgAIJe YHEbERqeFWZzCFS0BdMqLKVqTOXtCE0YBfHsORubPQHSSnc3MOusQ7v1OTDcNK7MY0Tmb2WaCnkrYJRG DSlyJT7cnfKsFZNaDc3CK1oMXbt0SRKyJeB6VdUcSK EvBTQbHWIfP0SzWRLiBNSjJkKnNW5gXImdO1EhQeciYkU2MCGpSGMzKhFfZxKgPSEnCRF2OrG6HsHsQV 9VWx9RVkL6MCV0pWMnKi7AWGF3XvPGCbFnQV4OPFt= ID Date Data Source [id number] 02/20/2021 05:41:58 AM EDT [facility] Name Value Range Interpretation Code Description Data Whit rce(s) Supporting Document(s) Progress Note [facility] PBHGXg1wIuMZBgIl05/MTBjiIPIkq6WdGLngKLa3RIpbXMNmQ3IpYJH8iB9oUWW6BJfCYuZvPbYbHxVb lbm [file] AgICAgICAgICAgICAgICAgICAgICAgICAgICAgICAg ICAgICAgICAgICAgICAgDQogICAgICAgICAgICAgICAgICAgICAgICAgICAgICAgICAgICAgICAgICAg ICAgICAgICAgICAgICAgICAgICAgICAgICAgICAgICAgICAgICAgICAgICAgICAgICAgICAgICAgDQog ICAgICAgICAgICAgICAgICAgICAgICAgICAgICAgIC AgICAgICAgICAgICAgICAgICAgICAgICAgICAgICAgICAgICAgICAgICAgICAgICAgICAgICAgICAgIC AgICAgICAgDQogICAgICAgICAgICAgICAgICAgICAgICAgICAgICAgICAgICAgICAgICAgICAgICAgIC AgICAgICAgICAgICAgICAgICAgICAgICAgICAgICAg ICAgICAgICAgICAgICAgICAgDQogICAgICAgICAgICAgICAgICAgICAgICAgICAgICAgICAgICAgICAg ICAgICAgICAgICAgICAgICAgICAgICAgICAgICAgICAgICAgICAgICAgICAgICAgICAgICAgICAgICAg DQogICAgICAgICAgICAgICAgICAgICAgICAgICAgIC AgICAgICAgICAgICAgICAgICAgICAgICAgICAgICAgICAgICAgICAgICAgICAgICAgICAgICAgICAgIC AgICAgICAgICAgDQogICAgICAgICAgICAgICAgICAgICAgICAgICAgICAgICAgICAgICAgICAgICAgIC AgICAgICAgICAgICAgICAgICAgICAgICAgICAgICAg ICAgICAgICAgICAgICAgICAgICAgDQogICAgICAgICAgICAgICAgICAgICAgICAgICAgICAgICAgICAg ICAgICAgICAgICAgICAgICAgICAgICAgICAgICAgICAgICAgICAgICAgICAgICAgICAgICAgICAgICAg ICAgDQogICAgICAgICAgICAgICAgICAgICAgICAgIC AgICAgICAgICAgICAgICAgICAgICAgICAgICAgICAgICAgICAgICAgICAgICAgICAgICAgICAgICAgIC AgICAgICAgICAgICAgDQogICAgICAgICAgICAgICAgICAgICAgICAgICAgICAgICAgICAgICAgICAgIC AgICAgICAgICAgICAgICAgICAgICAgICAgICAgICAg TAZbHTJjICZqGPYvSEFuTHZmGFGwKUXcDVi0T7mzHNAbAOAaDJ7uVFu2Gj9+MDuQFnTeOFO1dpGycX9G OC5zd6YmGJcqDAZwp6YyMDr8XI8JXKJeOYodCP9USRopjf0CRMWtFZMgfDENr9keOvYsVTM3FYZaCjms ZH8IBGXyR3vjblOoPOBhQPLDZI1ZHyXtH9QpyV05JU ENCj4+VQsnydDmFkzCRiG7UYLoq1RqCYw8HH3WTDPiCuzgd1YjKKCtUDVDFPwmUK4MBFO7IZE7UTUyEp 4FIAXpU742udTbWK4HTt7RDjOhHV9uoj0BOALxDLXuPodFZap5EJisTI0QqLDjTJqYcc2uqtBzedOIg5 IvnhGyoGTRINRqbWFoHMFCKLxtc6Q1PGWkBCERTZEl kPG7ZjEwMzNvVOAlWGdcZLOGLWtIQrWrF2Vkd4GfLyA2WKEsEvAzEFjiEIPpKgL8ED56uQvnJO1HOEOm ISNwKN54VNA5GPFjHl9YJx8FYbQzUD0brs8CICTrEPLbWhuKBco0DSozQN9RyIXcU9GcwOZqx9uQAkQv J5BZOAPuMGVrSk4DBWPrXcLqVGHcKGkxAZ2yYDWqZA GTlUokgyM5YB4TQR1phxMmGM9MZoQkHg1cWh3MWtXaA4BuM1QeHPYaGJZGMEeiTB5RMUgbLW7tWH8Uc1 YMfLEetD1rmf4APGXuFGQdHpbtbp9YNuwsX5Z1yXixRUMnAFWoZGWFSAiuOQ3CFDFpZCR0BLPbQfCuXM CAQkGkV12lUG7XN7Fou83fScP2IBDeKqFwWSfqBW16 xEmsulNacVOyrMjvHZ9FTf3+YGcukyDrBdsKZoauRPPTLzOyGTjPGeGtWGIbFBAoEGIoHjC6LqOnQr1V IGSuUBBfNAFdHpBkXLNeNSKyFMmbESGlHKA9SvIaEHXtNGPqVR4YBuJhHZVhWOV3VzXpEETuKDBiir9E NFSkWPGwRAY9IsCmGVSmUIRuYQxqNMNnJSTmHRVrAA XoKDGvRZ2JOyQvHKEcQQQwFCSuLTIoNPFtbz2MRZCdOKRcZwn2VGOuCFIbMCHeXPidPAArCDCoMVNbZJ CkONXeWL8JYwMuMPKxGOLfODZeSBTpILCaxj1QBWQfBCNqWXE9FZMjJTVdZAHdLAgfUAGzKHY0DNQcYV HaPJFaZN6YVhTuZGPqPUT1SVdsYBQjQSGrgv4EDOKo YSUaROW6KMNzJNDlJKNbACtxISHhXIG4DZV0GFHoSCBxHL6PEsUtZXYuGQL3WXRqOFTbWSPqzd1PZYUg MCMoYny4XpGnPKOhZKNzYJg6jwLliHDwTZf8HI0GR3CyezGaCIoPCc0Sy181DIC4SABjSm4HN2cwAa9o NBKzSOVMJl6IYUk0AAt0EJP7WAQ1H8X6ZALcIuI2CK P4KsFrD6BjGpEiLNQ+VPwhYbJ1EivkBUdcMKmcAGRyRHF2THybCoVrPESyJ6VkJp6nZVJNMy5+DQpzdG HncXivIOUEJjS7HCaEPlVmWD7ILUp= ID Date Data Source [id number] 02/20/2021 12:05:54 AM EDT [facility] Name Value Range Interpretation Code Description Data Whit rce(s) Supporting Document(s) Glucose [Mass/volume] in Capillary blood by Glucometer 144 mg/dL 70- [address] [facility] ID Date Data Source [id number] 02/19/2021 05:46:00 PM EDT [facility] Name Value Range Interpretation Code Description Data Whit rce(s) Supporting Document(s) Progress Note [facility] ZEKZQh6jRyIGQeMi17/LZUnvXSZkr5AoVKzeMY[id number] lbm [file] [id number]= ID Date Data Source [id number] 02/19/2021 01:37:53 PM EDT [facility] Name Value Range Interpretation Code Description Data Whit rce(s) Supporting Document(s) Glucose [Mass/volume] in Capillary blood by Glucometer 97 mg/dL 70- [address] [facility] ID Date Data Source [id number] 02/19/2021 10:29:52 AM EDT [facility] Name Value Range Interpretation Code Description Data Whit rce(s) Supporting Document(s) History and Physical [facility] [id number] lbm [file] [id number]= ID Date Data Source [id number] 02/19/2021 08:02:[address] [facility] Name Value Range Interpretation Code Description Data Whit rce(s) Supporting Document(s) Glucose [Mass/volume] in Capillary blood by Glucometer 172 mg/dL 70- [address] [facility] ID Date Data Source [id number] 02/22/2021 10:11:[address] [facility] Surgical Pathology ReportName: CARLITOS SANTIZOMRN: [id number] Number: [id number] Date: 02/19/2021 00:00Received Date: 02/20/2021 09:52Physician(s): GRACIELA THOMPSON MD NIKOLAVSKY, DMITRIY, MDSpecimen(s) ReceivedA: Left testicleB: Right testicleClinical HistoryGender dysphoria.DiagnosisA,B) TESTICLES, LEFT AND RIGHT, EXCISION: BENIGN TESTICULAR PARENCHYMA. Electronically Signed By Usman Munson M.D., Attending Pathologist02/22/2021 10:11:04 Unless 'gross-only' is specified, the final diagnosis is based on amicroscopic examination of human resources hr representative sections of tissue.Gross Description The specimen [...] with no mass es orlesions grossly identified. [employer] sections are submitted in onecassette. Part B [...] parenchyma with no masses or lesions grosslyidentified. Battery Charger [employer] sections are submitted in one cassette. [place]\\This report may include one or more immunohistochemical stain results thatuse analyte specific reagents. All positive and negative controls havebeen reviewed by the attending pathologist and are satisfactory. The testswere developed and their performance characteristics determined by [facility] Pathology department. They have not been cleared or approved by the USFood and Drug Administration. The FDA has determined that such clearanceor approval is not necessary. Name Value Range Interpretation Code Description Data Whit rce(s) Supporting Document(s) ID Date Data Source [id number] 02/14/2021 12:15:00 PM EDT [place] ([facility]) Name Value Range Interpretation Code Description Data Whit rce(s) Supporting Document(s) ID Date Data Source [id number] 02/14/2021 12:15:00 PM EDT [facility]) Name Value Range Interpretation Code Description Data Whit rce(s) Supporting Document(s) ID Date Data Source [id number] 02/14/2021 12:15:00 PM EDT [facility]) Name Value Range Interpretation Code Description Data Whit rce(s) Supporting Document(s) ID Date Data Source [id number] 02/14/2021 12:15:00 PM EDT [facility] Name Value Range Interpretation Code Description Data Whit rce(s) Supporting Document(s) SARS-CoV-2 (COVID-19) RNA [Presence] in Respiratory specimen by DONAVAN with probe detection Not Detected [facility] This lab was ordered by [facility] and reported by [employer] ID Date Data Source [id number] 02/04/2021 11:12:00 AM EDT [facility]) Name Value Range Interpretation Code Description Data Whit rce(s) Supporting Document(s) Hemoglobin A1c/Hemoglobin.total in Blood 8.3 % Hemoglobin a1C [facility]) estimated average glucose 192 mg/dL 60-110 Above high norm al Estimated Average Glucose [facility]) ID Date Data Source [id number] 02/04/2021 11:12:00 AM EDT [facility]) Name Value Range Interpretation Code Description Data Whit rce(s) Supporting Document(s) total 25(oh) vitamin D 11.2 NG/mL 30.0-100.0 Below low normal T otal 25(Oh) Vitamin D [facility]) ID Date Data Source [id number] 02/04/2021 11:12:00 AM EDT [facility]) Name Value Range Interpretation Code Description Data Whit rce(s) Supporting Document(s) thyroid stimulating hormone 2.670 uIU/mL 0.358-3.740 Thyroid Stimulating Hormone [place] ([facility]) ID Date Data Source [id number] 02/04/2021 11:12:00 AM EDT [place] ([facility]) Name Value Range Interpretation Code Description Data Whit rce(s) Supporting Document(s) triglycerides level 92 mg/dL <150 Triglycerides Le manjit [facility] ([facility]) HDL cholesterol 65 mg/dL >40 HDL Cholesterol ATHE NA ([facility]) non-HDL-C 62 mg/dL Non-hdl-c [facility] ([facility]) Cholesterol in LDL [Mass/volume] in Serum or Plasma 44 mg/dL <1 00 LDL Cholesterol [facility] ([facility]) cholesterol level 127 mg/dL <200 Cholesterol Level [facility] ([facility]) cholesterol risk ratio <5 Cholesterol R isk Ratio [facility] ([facility]) ID Date Data Source [id number] 02/04/2021 11:12:00 AM EDT [place] ([facility]) Name Value Range Interpretation Code Description Data Whit rce(s) Supporting Document(s) estimated average glucose 192 mg/dL 60-110 Above high norm al Estimated Average Glucose [facility] ([facility]) Hemoglobin A1c/Hemoglobin.total in Blood 8.3 % Hemoglobin a1C [facility] ([facility]) ID Date Data Source [id number] 02/04/2021 11:12:00 AM EDT [place] ([facility]) Name Value Range Interpretation Code Description Data Whit rce(s) Supporting Document(s) total 25(oh) vitamin D 11.2 NG/mL 30.0-100.0 Below low normal T otal 25(Oh) Vitamin D [facility] ([facility]) ID Date Data Source [id number] 02/04/2021 11:12:00 [facility] Name Value Range Interpretation Code Description Data Whit rce(s) Supporting Document(s) thyroid stimulating hormone 2.670 uIU/mL 0.358-3.740 Thyroid Stimulating Hormone [facility] ([facility]) ID Date Data Source [id number] 02/04/2021 11:12:00 AM EDT [place] ([facility]) Name Value Range Interpretation Code Description Data Whit rce(s) Supporting Document(s) triglycerides level 92 mg/dL <150 Triglycerides Le manjit [facility] ([facility]) HDL cholesterol 65 mg/dL >40 HDL Cholesterol ATHE NA ([facility]) Cholesterol in LDL [Mass/volume] in Serum or Plasma 44 mg/dL <1 00 LDL Cholesterol [facility] ([facility]) cholesterol level 127 mg/dL <200 Cholesterol Level [facility] ([facility]) cholesterol risk ratio <5 Cholesterol R isk Ratio [facility] ([facility]) non-HDL-C 62 mg/dL Non-hdl-c [facility] ([facility]) ID Date Data Source [id number] 02/04/2021 11:12:00 AM EDT [place] ([facility]) Name Value Range Interpretation Code Description Data Whit rce(s) Supporting Document(s) estimated average glucose 192 mg/dL 60-110 Above high norm al Estimated Average Glucose [place] ([facility]) Hemoglobin A1c/Hemoglobin.total in Blood 8.3 % Hemoglobin a1C [facility] ([facility]) ID Date Data Source [id number] 02/04/2021 11:12:00 AM EDT [place] ([facility]) Name Value Range Interpretation Code Description Data Whit rce(s) Supporting Document(s) total 25(oh) vitamin D 11.2 NG/mL 30.0-100.0 Below low normal T otal 25(Oh) Vitamin D [place] ([facility]) ID Date Data Source [id number] 02/04/2021 11:12:00 AM EDT [place] ([facility]) Name Value Range Interpretation Code Description Data Whit rce(s) Supporting Document(s) thyroid stimulating hormone 2.670 uIU/mL 0.358-3.740 Thyroid Stimulating Hormone [facility] ([facility]) ID Date Data Source [id number] 02/04/2021 11:12:00 AM EDT [place] ([facility]) Name Value Range Interpretation Code Description Data Whit rce(s) Supporting Document(s) triglycerides level 92 mg/dL <150 Triglycerides Le manjit [facility] ([facility]) HDL cholesterol 65 mg/dL >40 HDL Cholesterol [place] ([facility]) cholesterol level 127 mg/dL <200 Cholesterol Level [place] ([facility]) Cholesterol in LDL [Mass/volume] in Serum or Plasma 44 mg/dL <1 00 LDL Cholesterol [place] ([facility]) non-HDL-C 62 mg/dL Non-hdl-c [facility] ([facility]) cholesterol risk ratio <5 Cholesterol R isk Ratio [facility] ([facility]) ID Date Data Source [id number] 02/04/2021 11:12:00 AM EDT [place] ([facility]) Name Value Range Interpretation Code Description Data Whit rce(s) Supporting Document(s) Hemoglobin A1c/Hemoglobin.total in Blood 8.3 % Hemoglobin a1C [facility] ([facility]) estimated average glucose 192 mg/dL 60-110 Above high norm al Estimated Average Glucose [facility] ([facility]) ID Date Data Source [id number] 02/04/2021 11:12:00 AM [facility] Name Value Range Interpretation Code Description Data Whit rce(s) Supporting Document(s) total 25(oh) vitamin D 11.2 NG/mL 30.0-100.0 Below low normal T otal 25(Oh) Vitamin D [facility] ([facility]) ID Date Data Source [id number] 02/04/2021 11:12:00 AM EDT [place] ([facility]) Name Value Range Interpretation Code Description Data Whit rce(s) Supporting Document(s) thyroid stimulating hormone 2.670 uIU/mL 0.358-3.740 Thyroid Stimulating Hormone [facility] ([facility]) ID Date Data Source [id number] 02/04/2021 11:12:00 AM EDT [place] ([facility]) Name Value Range Interpretation Code Description Data Whit rce(s) Supporting Document(s) cholesterol level 127 mg/dL <200 Cholesterol Level [facility] ([facility]) triglycerides level 92 mg/dL <150 Triglycerides Le manjit [facility] ([facility]) HDL cholesterol 65 mg/dL >40 HDL Cholesterol [facility] ([facility]) Cholesterol in LDL [Mass/volume] in Serum or Plasma 44 mg/dL <1 00 LDL Cholesterol [facility] ([facility]) non-HDL-C 62 mg/dL Non-hdl-c [facility] ([facility]) cholesterol risk ratio <5 Cholesterol R isk Ratio [facility] ([facility]) ID Date Data Source [id number] 01/28/2021 03:18:15 PM EDT [facility] Name Value Range Interpretation Code Description Data Whit rce(s) Supporting Document(s) Progress Note [facility] BGZIYj3xKeVEFcYp35/GKDzyIUQcf2IaEXppPQc6IKzhBYKfD8WhFFR8sX0dJZO7GZdKJkFcPjGyMWPv lbm [file] MD4tCZzAlKYHUhMtVqdxt5BqBCz7mcGNoHF5pZFQcDnAB4zBBigiG8KgItKo7mDxNVel4/highway construction inspector+Fgx5ge [file] E+DQogICAgICAgICAgICAgICAgICAgICAgICAgICAgICAgICAgICAgICAgICAgICAgICAgICAgICAgIC AgICAgICAgICAgICAgICAgICAgICAgICAgICAgICAgICAgICAgICAgICAgDQogICAgICAgICAgICAgIC AgICAgICAgICAgICAgICAgICAgICAgICAgICAgICAg ICAgICAgICAgICAgICAgICAgICAgICAgICAgICAgICAgICAgICAgICAgICAgICAgICAgICAgDQogICAg ICAgICAgICAgICAgICAgICAgICAgICAgICAgICAgICAgICAgICAgICAgICAgICAgICAgICAgICAgICAg ICAgICAgICAgICAgICAgICAgICAgICAgICAgICAgIC AgICAgDQogICAgICAgICAgICAgICAgICAgICAgICAgICAgICAgICAgICAgICAgICAgICAgICAgICAgIC AgICAgICAgICAgICAgICAgICAgICAgICAgICAgICAgICAgICAgICAgICAgICAgDQogICAgICAgICAgIC AgICAgICAgICAgICAgICAgICAgICAgICAgICAgICAg ICAgICAgICAgICAgICAgICAgICAgICAgICAgICAgICAgICAgICAgICAgICAgICAgICAgICAgICAgDQog ICAgICAgICAgICAgICAgICAgICAgICAgICAgICAgICAgICAgICAgICAgICAgICAgICAgICAgICAgICAg ICAgICAgICAgICAgICAgICAgICAgICAgICAgICAgIC AgICAgICAgDQogICAgICAgICAgICAgICAgICAgICAgICAgICAgICAgICAgICAgICAgICAgICAgICAgIC AgICAgICAgICAgICAgICAgICAgICAgICAgICAgICAgICAgICAgICAgICAgICAgICAgDQogICAgICAgIC AgICAgICAgICAgICAgICAgICAgICAgICAgICAgICAg ICAgICAgICAgICAgICAgICAgICAgICAgICAgICAgICAgICAgICAgICAgICAgICAgICAgICAgICAgICAg DQogICAgICAgICAgICAgICAgICAgICAgICAgICAgICAgICAgICAgICAgICAgICAgICAgICAgICAgICAg ICAgICAgICAgICAgICAgICAgICAgICAgICAgICAgIC AgICAgICAgICAgDQogICAgICAgICAgICAgICAgICAgICAgICAgICAgICAgICAgICAgICAgICAgICAgIC AhGBTnTYDiNVXtNAGvCOGxKOBtJKCuKMFiNZJmCYWxWDPoDERjVCIcYHHhZPCzVWDmKVWsAZi6M6flWK MbMDSmAD6pJVo2Ra2+OBzKTmSgRGJ4acAjwP8XGL5c h0RqOGwfFVDmn5PyBZt6LN6NIWJuSLhpCD4LQJuquw9XTTXqLLPewZKXl2wsFoPgKVQ6UPRpLcbtIS7T PGGcG5rotpVbPBFjZNFZWIscWFCLXBafIJBYAZTuITAaDfQtOHqwTR5Uv4AdqAT6BWg+Fb7AKO5ua9Iy VHhtDXFjXY0etj7HQQmIReKqK9QjcxH4GYX5HZZlGd 5VHSZzHSYwkVDeCzXqALUFDxWbE5CbcY96BMKIZj4+JAcudkIjDkkWGwP8ZMUew5BqXNd4LH6RVGRqRD q9hYTwPDDaC7Hnb5LwRz94MFWeTiatJIsyuMIyyOJOAHEkc9wzHFSAUXDiwCT7ZnUeXcRmWhZhEHS6Rz VpCJ1lYWtsHT2MIXL1SVzxFEZnAPRiZ7pTRsXrFODh RVDyoYkzVN7LSwClB9UydpHanTMbNFMnDKVIKj1+GKvwekOzXziPBxH9YVIwu8UpMGk9VL6XXVFbZWmh EZ4QCNQpqE6gHNcoCF3LJtIyPhVjLFBYVyCvR05buGKnRCc0X4JfVfHoTXCqOhtcXWUdCNtoMaFgSLMs WyBdDQogID4+ID4+HWtmYC2ZCJzrqhOnZOErDc9EWP NdZEBcEO4qKQDeCAGeH2P4xNhpBIBUGcLuU0eyrpaxMV7mXMNyS678lRxsbpTpUMW6MZBmQe4QKWNtXC K0NAWtsLYmKnXfNHMPFEmiUE3ScHPiPDM0yJ7bWVssHAFsAHWsI9nZQxFpjBynCS63pThqhwPtgPTpCB o+Pp1QCM1za2RmCQn3srUwMVbwOII8DNugQGBmFNDi HYDsOMD1HTT5ZNBHFfWhNNAdHBMaANpsNNRxYIFyae2SUDIvFIH9SOZ6EQDxLYHdHGXoCCslOMBeIIT2 KFodHOAcXWPeNB0VLqJbPFSpPFLsJKioGWJoHLClqu0IONFdHJUaRqzaLBQvHDQbGMPpYHexTSNeSDN4 COR8WLMfCVJeVK6POhKdMXEjTYG1SAVpPVKaBHJksh 7AAFChAXElVtopSBPlPCOlXIEuTGstUTMdOKO9QhqnUNXiLJXdFN9QZzQhUIStEYe0MGZaXWWtGLKrfd 5DHBHhEPTqODL8DJUnEEUcMVMjATquHJGoJRVhLfbgWNMcFGNxPN9ARoGyXYYkSXL7NMOsVLPwNLXywf 0KMDAwMDAxMTgzOCAwMDAwMCBuDQowMDAwMDEyMDIx CMUqHTFfHE8NYrOoOWYeONU2EIEpASTwPVPoag0YKVUtVPYxGjT8EbOkRPHeLZPdERhlGVAxXZOlDujt DPAuDBOhYW1URcOiKDHkTTM8GTUbTAThRDYmsg8TTVQlDBS0ZZI3RqIbHMOiWOAbEViiRSSuPGA8Etu9 REQeIHIyQD6KRnDtULJfTDGmRZUvMXDlXDFejm4SRP GrXBF4IKOmSTRoRXKoMBKnIZfoFPUvSZH3OmBpSPFcAFUqTD5OVrUwWAVkSSjpIQunYALdYPDepe5ZRR QgYEX6ZlM3YXMiIOWeHXZiLCriLPNkNAT8CuF5LHEvQDPeSA3MEsGzOMmzBLTKZqp4JZgdO4c9VKRbGI 9ZT0Ohz1CdZbmpXUZXADzoNV0bkaHnULNkSs2SY0lK ZzjyEkJ9RdJ9NMFeQKZoHYT6HqssTOBqOtw0MFVhLrEoHm2tYKRiCKIqSOqyReZ2XCA1THl2SGCaBFIy KFK9SlPdP6PwMiVrRA0WMn0QCiN1ONI5yALqJw0EENb1GQECTqStOG2WGGc= ID Date Data Source [id number] 12/14/2020 11:56:00 AM EDT [facility] ([facility] ) Name Value Range Interpretation Code Description Data Whit rce(s) Supporting Document(s) Glucose [Mass/volume] in Serum or Plasma 159 [facility] ([facility] ) Hemoglobin A1c/Hemoglobin.total in Blood 8.4 [facility] ([facility] ) ID Date Data Source [id number] 12/12/2020 05:16:00 PM EDT [place] ([facility]) Name Value Range Interpretation Code Description Data Whit rce(s) Supporting Document(s) nt-pro BNP 25 pg/mL <125 Nt-pro BNP [place] ([facility]) ID Date Data Source [id number] 12/12/2020 05:16:00 PM EDT [place] ([facility]) Name Value Range Interpretation Code Description Data Whit rce(s) Supporting Document(s) glucose, fasting 181 mg/dL 70-100 Above high normal Glucose, Fas ting [place] ([facility]) blood urea nitrogen 12 mg/dL 7-18 Blood Urea Nitro gen [facility] ([facility]) sodium level 137 mEq/L 136-145 Sodium Level [facility] (No [facility]) glomerular filtration rate > 60.0 >56 Glomerula r Filtration Rate [place] ([facility]) potassium serum 4.4 mEq/L 3.5-5.1 Potassium Serum [place] ([facility]) creatinine for GFR 0.78 mg/dL 0.70-1.30 Creatinine for GF R [place] ([facility]) carbon dioxide level 28 mEq/L 21-32 Carbon Dioxide Level [place] ([facility]) chloride level 102 mEq/L 98-107 Chloride Level [place] ([facility]) calcium level 9.0 mg/dL 8.5-10.1 Calcium Level [place] ( [facility]) anion gap 7 mEq/L 8-16 Below low normal Anion Gap [place] ( [facility]) alkaline phosphatase 84 U/L 45-117 Alkaline Phosph atase [place] ([facility]) bilirubin,total 0.3 mg/dL 0.2-1.0 Bilirubin,total ATHE NA ([facility]) ALT/SGPT 31 U/L 12-78 ALT/SGPT [place] ([facility]) total protein 6.6 gm/dL 6.4-8.2 Total Protein [place] ( [facility]) AST/SGOT 15 U/L 7-37 AST/SGOT [place] ([facility]) albumin 3.7 gm/dL 3.2-5.2 Albumin [place] ([facility]) albumin/globulin ratio Albumin/globu trish Ratio [facility] ([facility]) ID Date Data Source [id number] 12/12/2020 05:16:00 PM EDT [place] ([facility]) Name Value Range Interpretation Code Description Data Whit rce(s) Supporting Document(s) white blood count 6.3 10 4.0-10.0 White Blood Count [place] ([facility]) red blood count 4.57 10 4.30-6.10 Red Blood Count [place] ([facility]) hemoglobin 14.1 g/dL 13.5-17.5 Hemoglobin [place] ([facility]) mean corpuscular volume 93.4 fL 80.0-96.0 Mean Corpusc ular Volume [facility] ([facility]) mean corpuscular HGB conc 33.0 g/dL 32.0-36.5 Mean Corpu scular HGB Conc [facility] ([facility]) mean corpuscular hemoglobin 30.9 pg 27.0-33.0 Mean Cor puscular Hemoglobin [place] ([facility]) hematocrit 42.7 % 42.0-52.0 Hematocrit [place] ([facility]) neutrophils % 44.7 % 36.0-66.0 Neutrophils % [place] ( [facility]) platelet count, automated 231 10 150-450 Platelet C ount, Automated [place] ([facility]) red cell distribution width 13.3 % 11.5-14.5 Red Cell Distribution Width [facility] ([facility]) eos % 8.7 % 0.0-3.0 Above high normal Eos % [place] ([facility]) baso % 2.1 % 0.0-1.0 Above high normal Baso % [place] ([facility]) mono % 9.7 % 2.0-8.0 Above high normal [place] % [facility] ([facility]) lymph % 33.7 % 24.0-44.0 Lymph % [facility] ([facility]) immature granulocyte % 1.1 % 0-3.0 Immature Gran ulocyte % [place] ([facility]) mono # 0.6 10 0.0-0.8 [place] # [facility] ([facility]) neutrophils # 2.8 10 1.5-8.5 Neutrophils # [place] ( [facility]) nucleated red blood cell % 0.0 % 0-0 Nucleated Red Blood Cell % [place] ([facility]) lymph # 2.1 10 1.5-5.0 Lymph # [place] ([facility]) eos # 0.6 10 0.0-0.5 Above high normal Eos # [place] ([facility]) baso # 0.1 10 0.0-0.2 Baso # [facility] ([facility]) ID Date Data Source [id number] 12/12/2020 05:16:00 PM EDT [place] ([facility]) Name Value Range Interpretation Code Description Data Whit rce(s) Supporting Document(s) nt-pro BNP 25 pg/mL <125 Nt-pro BNP [place] ([facility]) ID Date Data Source [id number] 12/12/2020 05:16:00 PM EDT [place] ([facility]) Name Value Range Interpretation Code Description Data Whit rce(s) Supporting Document(s) glucose, fasting 181 mg/dL 70-100 Above high normal Glucose, Fas ting [place] ([facility]) sodium level 137 mEq/L 136-145 Sodium Level [facility] ([facility]) glomerular filtration rate > 60.0 >56 Glomerula r Filtration Rate [facility] ([facility]) blood urea nitrogen 12 mg/dL 7-18 Blood Urea Nitro gen [place] ([facility]) creatinine for GFR 0.78 mg/dL 0.70-1.30 Creatinine for GF R [place] ([facility]) chloride level 102 mEq/L 98-107 Chloride Level [place] ([facility]) potassium serum 4.4 mEq/L 3.5-5.1 Potassium Serum [place] ([facility]) carbon dioxide level 28 mEq/L 21-32 Carbon Dioxide Level [place] ([facility]) AST/SGOT 15 U/L 7-37 AST/SGOT [place] ([facility]) ALT/SGPT 31 U/L 12-78 ALT/SGPT [place] ([facility]) alkaline phosphatase 84 U/L 45-117 Alkaline Phosph atase [place] ([facility]) anion gap 7 mEq/L 8-16 Below low normal Anion Gap [place] ( [facility]) calcium level 9.0 mg/dL 8.5-10.1 Calcium Level [place] ( [facility]) total protein 6.6 gm/dL 6.4-8.2 Total Protein [place] ( [facility]) albumin 3.7 gm/dL 3.2-5.2 Albumin [place] ([facility]) albumin/globulin ratio Albumin/globu trish Ratio [place] ([facility]) bilirubin,total 0.3 mg/dL 0.2-1.0 Bilirubin,total [place] ([facility]) ID Date Data Source [id number] 12/12/2020 05:16:00 PM EDT [place] ([facility]) Name Value Range Interpretation Code Description Data Whit rce(s) Supporting Document(s) white blood count 6.3 10 4.0-10.0 White Blood Count [place] ([facility]) hemoglobin 14.1 g/dL 13.5-17.5 Hemoglobin [place] ([facility]) red blood count 4.57 10 4.30-6.10 Red Blood Count [place] ([facility]) mean corpuscular volume 93.4 fL 80.0-96.0 Mean Corpusc ular Volume [place] ([facility]) mean corpuscular hemoglobin 30.9 pg 27.0-33.0 Mean Cor puscular Hemoglobin [place] ([facility]) mean corpuscular HGB conc 33.0 g/dL 32.0-36.5 Mean Corpu scular HGB Conc [place] ([facility]) hematocrit 42.7 % 42.0-52.0 Hematocrit [place] ([facility]) lymph % 33.7 % 24.0-44.0 Lymph % [place] ([facility]) red cell distribution width 13.3 % 11.5-14.5 Red Cell Distribution Width [place] ([facility]) platelet count, automated 231 10 150-450 Platelet C ount, Automated [place] ([facility]) neutrophils % 44.7 % 36.0-66.0 Neutrophils % [place] ( [facility]) eos % 8.7 % 0.0-3.0 Above high normal Eos % [place] ([facility]) mono % 9.7 % 2.0-8.0 Above high normal [place] % [place] ([facility]) baso % 2.1 % 0.0-1.0 Above high normal Baso % [place] ([facility]) immature granulocyte % 1.1 % 0-3.0 Immature Gran ulocyte % [place] ([facility]) nucleated red blood cell % 0.0 % 0-0 Nucleated Red Blood Cell % [place] ([facility]) lymph # 2.1 10 1.5-5.0 Lymph # [place] ([facility]) neutrophils # 2.8 10 1.5-8.5 Neutrophils # [place] ( [facility]) mono # 0.6 10 0.0-0.8 [place] # [place] ([facility]) baso # 0.1 10 0.0-0.2 Baso # [facility] ([facility]) eos # 0.6 10 0.0-0.5 Above high normal Eos # [place] ([facility]) ID Date Data Source [id number] 12/12/2020 05:16:00 PM EDT [place] ([facility]) Name Value Range Interpretation Code Description Data Whit rce(s) Supporting Document(s) nt-pro BNP 25 pg/mL <125 Nt-pro BNP [place] ([facility]) ID Date Data Source [id number] 12/12/2020 05:16:00 PM EDT [facility]) Name Value Range Interpretation Code Description Data Whit rce(s) Supporting Document(s) blood urea nitrogen 12 mg/dL 7-18 Blood Urea Nitro gen [place] ([facility]) glucose, fasting 181 mg/dL 70-100 Above high normal Glucose, Fas ting [place] ([facility]) sodium level 137 mEq/L 136-145 Sodium Level [facility] (No [facility]) glomerular filtration rate > 60.0 >56 Glomerula r Filtration Rate [place] ([facility]) creatinine for GFR 0.78 mg/dL 0.70-1.30 Creatinine for GF R [place] ([facility]) potassium serum 4.4 mEq/L 3.5-5.1 Potassium Serum [place] ([facility]) calcium level 9.0 mg/dL 8.5-10.1 Calcium Level [place] ( [facility]) chloride level 102 mEq/L 98-107 Chloride Level [facility] ([facility]) anion gap 7 mEq/L 8-16 Below low normal Anion Gap [place] ( [facility]) carbon dioxide level 28 mEq/L 21-32 Carbon Dioxide Level [place] ([facility]) alkaline phosphatase 84 U/L 45-117 Alkaline Phosph atase [place] ([facility]) ALT/SGPT 31 U/L 12-78 ALT/SGPT [place] ([facility]) total protein 6.6 gm/dL 6.4-8.2 Total Protein [place] ( [facility]) bilirubin,total 0.3 mg/dL 0.2-1.0 Bilirubin,total [place] ([facility]) AST/SGOT 15 U/L 7-37 AST/SGOT [place] ([facility]) albumin 3.7 gm/dL 3.2-5.2 Albumin [place] ([facility]) albumin/globulin ratio Albumin/globu trish Ratio [place] ([facility]) ID Date Data Source [id number] 12/12/2020 05:16:00 PM EDT [place] ([facility]) Name Value Range Interpretation Code Description Data Whit rce(s) Supporting Document(s) white blood count 6.3 10 4.0-10.0 White Blood Count [place] ([facility]) red blood count 4.57 10 4.30-6.10 Red Blood Count [place] NA ([facility]) hemoglobin 14.1 g/dL 13.5-17.5 Hemoglobin [place] ([facility]) mean corpuscular volume 93.4 fL 80.0-96.0 Mean Corpusc ular Volume [place] ([facility]) hematocrit 42.7 % 42.0-52.0 Hematocrit [place] ([facility]) platelet count, automated 231 10 150-450 Platelet C ount, Automated [place] ([facility]) red cell distribution width 13.3 % 11.5-14.5 Red Cell Distribution Width [place] ([facility]) mean corpuscular HGB conc 33.0 g/dL 32.0-36.5 Mean Corpu scular HGB Conc [place] ([facility]) mean corpuscular hemoglobin 30.9 pg 27.0-33.0 Mean Cor puscular Hemoglobin [place] ([facility]) lymph % 33.7 % 24.0-44.0 Lymph % [place] ([facility]) neutrophils % 44.7 % 36.0-66.0 Neutrophils % [place] ( [facility]) mono % 9.7 % 2.0-8.0 Above high normal [place] % [place] ([facility]) baso % 2.1 % 0.0-1.0 Above high normal Baso % [place] ([facility]) nucleated red blood cell % 0.0 % 0-0 Nucleated Red Blood Cell % [place] ([facility]) eos % 8.7 % 0.0-3.0 Above high normal Eos % [place] ([facility]) immature granulocyte % 1.1 % 0-3.0 Immature Gran ulocyte % [place] ([facility]) lymph # 2.1 10 1.5-5.0 Lymph # [place] ([facility]) eos # 0.6 10 0.0-0.5 Above high normal Eos # [place] ([facility]) neutrophils # 2.8 10 1.5-8.5 Neutrophils # [place] ( [facility]) mono # 0.6 10 0.0-0.8 [place] # [place] ([facility]) baso # 0.1 10 0.0-0.2 Baso # [place] ([facility]) ID Date Data Source [id number] 12/12/2020 05:16:00 PM EDT [place] ([facility]) Name Value Range Interpretation Code Description Data Whit rce(s) Supporting Document(s) nt-pro BNP 25 pg/mL <125 Nt-pro BNP [place] ([facility]) ID Date Data Source [id number] 12/12/2020 05:16:00 PM EDT [place] ([facility]) Name Value Range Interpretation Code Description Data Whit rce(s) Supporting Document(s) creatinine for GFR 0.78 mg/dL 0.70-1.30 Creatinine for GF R [place] ([facility]) glomerular filtration rate > 60.0 >56 Glomerula r Filtration Rate [place] ([facility]) glucose, fasting 181 mg/dL 70-100 Above high normal Glucose, Fas ting [place] ([facility]) blood urea nitrogen 12 mg/dL 7-18 Blood Urea Nitro gen [place] ([facility]) carbon dioxide level 28 mEq/L 21-32 Carbon Dioxide Level [place] ([facility]) chloride level 102 mEq/L 98-107 Chloride Level [place] ([facility]) potassium serum 4.4 mEq/L 3.5-5.1 Potassium Serum [place] [place] ([facility]) sodium level 137 mEq/L 136-145 Sodium Level [place] ([facility]) AST/SGOT 15 U/L 7-37 AST/SGOT [place] ([facility]) anion gap 7 mEq/L 8-16 Below low normal Anion Gap [place] ( [facility]) ALT/SGPT 31 U/L 12-78 ALT/SGPT [place] ([facility]) alkaline phosphatase 84 U/L 45-117 Alkaline Phosph atase [place] ([facility]) calcium level 9.0 mg/dL 8.5-10.1 Calcium Level [place] ( [facility]) albumin/globulin ratio Albumin/globu trish Ratio [place] ([facility]) bilirubin,total 0.3 mg/dL 0.2-1.0 Bilirubin,total [facility]HE NA ([facility]) albumin 3.7 gm/dL 3.2-5.2 Albumin [place] ([facility]) total protein 6.6 gm/dL 6.4-8.2 Total Protein [place] ( [facility]) ID Date Data Source [id number] 12/12/2020 05:16:00 PM EDT [place] ([facility]) Name Value Range Interpretation Code Description Data Whit rce(s) Supporting Document(s) white blood count 6.3 10 4.0-10.0 White Blood Count [place] ([facility]) hemoglobin 14.1 g/dL 13.5-17.5 Hemoglobin [place] ([facility]) red blood count 4.57 10 4.30-6.10 Red Blood Count [facility] [place] ([facility]) mean corpuscular volume 93.4 fL 80.0-96.0 Mean Corpusc ular Volume [place] ([facility]) mean corpuscular hemoglobin 30.9 pg 27.0-33.0 Mean Cor puscular Hemoglobin [place] ([facility]) hematocrit 42.7 % 42.0-52.0 Hematocrit [place] ([facility]) mean corpuscular HGB conc 33.0 g/dL 32.0-36.5 Mean Corpu scular HGB Conc [place] ([facility]) neutrophils % 44.7 % 36.0-66.0 Neutrophils % [place] ( [facility]) platelet count, automated 231 10 150-450 Platelet C ount, Automated [place] ([facility]) red cell distribution width 13.3 % 11.5-14.5 Red Cell Distribution Width [place] ([facility]) eos % 8.7 % 0.0-3.0 Above high normal Eos % [place] ([facility]) baso % 2.1 % 0.0-1.0 Above high normal Baso % [place] ([facility]) lymph % 33.7 % 24.0-44.0 Lymph % [place] ([facility]) mono % 9.7 % 2.0-8.0 Above high normal [place] % [place] ([facility]) nucleated red blood cell % 0.0 % 0-0 Nucleated Red Blood Cell % [place] ([facility]) immature granulocyte % 1.1 % 0-3.0 Immature Gran ulocyte % [place] ([facility]) lymph # 2.1 10 1.5-5.0 Lymph # [place] ([facility]) neutrophils # 2.8 10 1.5-8.5 Neutrophils # [place] ( [facility]) baso # 0.1 10 0.0-0.2 Baso # [place] ([facility]) mono # 0.6 10 0.0-0.8 [place] # [place] ([facility]) eos # 0.6 10 0.0-0.5 Above high normal Eos # [place] ([facility]) ID Date Data Source [id number] 12/12/2020 05:16:00 PM EDT [place] ([facility]) Name Value Range Interpretation Code Description Data Whit rce(s) Supporting Document(s) nt-pro BNP 25 pg/mL <125 Nt-pro BNP [place] ([facility]) ID Date Data Source [id number] 12/12/2020 05:16:00 PM EDT [place] ([facility]) Name Value Range Interpretation Code Description Data Whit rce(s) Supporting Document(s) glucose, fasting 181 mg/dL 70-100 Above high normal Glucose, Fas ting [place] ([facility]) glomerular filtration rate > 60.0 >56 Glomerula r Filtration Rate [place] ([facility]) sodium level 137 mEq/L 136-145 Sodium Level [place] (No [facility]) creatinine for GFR 0.78 mg/dL 0.70-1.30 Creatinine for GF R [place] ([facility]) blood urea nitrogen 12 mg/dL 7-18 Blood Urea Nitro gen [place] ([facility]) potassium serum 4.4 mEq/L 3.5-5.1 Potassium Serum ATHE NA ([facility]) anion gap 7 mEq/L 8-16 Below low normal Anion Gap [place] ( [facility]) chloride level 102 mEq/L 98-107 Chloride Level [place] ([facility]) carbon dioxide level 28 mEq/L 21-32 Carbon Dioxide Level [place] ([facility]) calcium level 9.0 mg/dL 8.5-10.1 Calcium Level [place] ( [facility]) ALT/SGPT 31 U/L 12-78 ALT/SGPT [place] ([facility]) AST/SGOT 15 U/L 7-37 AST/SGOT [place] ([facility]) alkaline phosphatase 84 U/L 45-117 Alkaline Phosph atase [place] ([facility]) total protein 6.6 gm/dL 6.4-8.2 Total Protein [place] ( [facility]) albumin 3.7 gm/dL 3.2-5.2 Albumin [place] ([facility]) albumin/globulin ratio Albumin/globu trish Ratio [place] ([facility]) bilirubin,total 0.3 mg/dL 0.2-1.0 Bilirubin,total [place] NA ([facility]) ID Date Data Source [id number] 12/12/2020 05:16:00 PM EDT [place] ([facility]) Name Value Range Interpretation Code Description Data Whit rce(s) Supporting Document(s) white blood count 6.3 10 4.0-10.0 White Blood Count [place] ([facility]) red blood count 4.57 10 4.30-6.10 Red Blood Count [place] ([facility]) hematocrit 42.7 % 42.0-52.0 Hematocrit [place] ([facility]) hemoglobin 14.1 g/dL 13.5-17.5 Hemoglobin [place] ([facility]) mean corpuscular volume 93.4 fL 80.0-96.0 Mean Corpusc ular Volume [place] ([facility]) red cell distribution width 13.3 % 11.5-14.5 Red Cell Distribution Width [place] ([facility]) mean corpuscular HGB conc 33.0 g/dL 32.0-36.5 Mean Corpu scular HGB Conc [place] ([facility]) mean corpuscular hemoglobin 30.9 pg 27.0-33.0 Mean Cor puscular Hemoglobin [place] ([facility]) lymph % 33.7 % 24.0-44.0 Lymph % [place] ([facility]) neutrophils % 44.7 % 36.0-66.0 Neutrophils % [place] ( [facility]) mono % 9.7 % 2.0-8.0 Above high normal [place] % [place] ([facility]) platelet count, automated 231 10 150-450 Platelet C ount, Automated [place] ([facility]) nucleated red blood cell % 0.0 % 0-0 Nucleated Red Blood Cell % [place] ([facility]) eos % 8.7 % 0.0-3.0 Above high normal Eos % [place] ([facility]) immature granulocyte % 1.1 % 0-3.0 Immature Gran ulocyte % [place] ([facility]) baso % 2.1 % 0.0-1.0 Above high normal Baso % [place] ([facility]) mono # 0.6 10 0.0-0.8 [place] # [place] ([facility]) neutrophils # 2.8 10 1.5-8.5 Neutrophils # [place] ( [facility]) lymph # 2.1 10 1.5-5.0 Lymph # [place] ([facility]) eos # 0.6 10 0.0-0.5 Above high normal Eos # [place] ([facility]) baso # 0.1 10 0.0-0.2 Baso # [place] ([facility]) ID Date Data Source [id number] 12/12/2020 05:16:00 PM EDT [place] ([facility]) Name Value Range Interpretation Code Description Data Whit rce(s) Supporting Document(s) nt-pro BNP 25 pg/mL <125 Nt-pro BNP [place] ([facility]) ID Date Data Source [id number] 12/12/2020 05:16:00 PM EDT [place] ([facility]) Name Value Range Interpretation Code Description Data Whit rce(s) Supporting Document(s) glucose, fasting 181 mg/dL 70-100 Above high normal Glucose, Fas ting [place] ([facility]) glomerular filtration rate > 60.0 >56 Glomerula r Filtration Rate [place] ([facility]) blood urea nitrogen 12 mg/dL 7-18 Blood Urea Nitro gen [place] ([facility]) creatinine for GFR 0.78 mg/dL 0.70-1.30 Creatinine for GF R [place] ([facility]) anion gap 7 mEq/L 8-16 Below low normal Anion Gap [place] ( [facility]) potassium serum 4.4 mEq/L 3.5-5.1 Potassium Serum [place] NA ([facility]) chloride level 102 mEq/L 98-107 Chloride Level [place] ([facility]) carbon dioxide level 28 mEq/L 21-32 Carbon Dioxide Level [place] ([facility]) sodium level 137 mEq/L 136-145 Sodium Level [place] (No [facility]) AST/SGOT 15 U/L 7-37 AST/SGOT [place] ([facility]) ALT/SGPT 31 U/L 12-78 ALT/SGPT [place] ([facility]) calcium level 9.0 mg/dL 8.5-10.1 Calcium Level [place] ( [facility]) alkaline phosphatase 84 U/L 45-117 Alkaline Phosph atase [place] ([facility]) albumin/globulin ratio Albumin/globu trish Ratio [place] ([facility]) total protein 6.6 gm/dL 6.4-8.2 Total Protein [place] ( [facility]) bilirubin,total 0.3 mg/dL 0.2-1.0 Bilirubin,total [place] ([facility]) albumin 3.7 gm/dL 3.2-5.2 Albumin [place] ([facility]) ID Date Data Source [id number] 12/12/2020 05:16:00 PM EDT [place] ([facility]) Name Value Range Interpretation Code Description Data Whit rce(s) Supporting Document(s) white blood count 6.3 10 4.0-10.0 White Blood Count [place] ([facility]) red blood count 4.57 10 4.30-6.10 Red Blood Count [place] ([facility]) hemoglobin 14.1 g/dL 13.5-17.5 Hemoglobin [place] ([facility]) hematocrit 42.7 % 42.0-52.0 Hematocrit [place] ([facility]) mean corpuscular hemoglobin 30.9 pg 27.0-33.0 Mean Cor puscular Hemoglobin [place] ([facility]) mean corpuscular volume 93.4 fL 80.0-96.0 Mean Corpusc ular Volume [place] ([facility]) mean corpuscular HGB conc 33.0 g/dL 32.0-36.5 Mean Corpu scular HGB Conc [place] ([facility]) red cell distribution width 13.3 % 11.5-14.5 Red Cell Distribution Width [place] ([facility]) platelet count, automated 231 10 150-450 Platelet C ount, Automated [place] ([facility]) lymph % 33.7 % 24.0-44.0 Lymph % [place] ([facility]) eos % 8.7 % 0.0-3.0 Above high normal Eos % [place] ([facility]) neutrophils % 44.7 % 36.0-66.0 Neutrophils % [place] ( [facility]) mono % 9.7 % 2.0-8.0 Above high normal [place] % [place] ([facility]) neutrophils # 2.8 10 1.5-8.5 Neutrophils # [place] ( [facility]) nucleated red blood cell % 0.0 % 0-0 Nucleated Red Blood Cell % [place] ([facility]) baso % 2.1 % 0.0-1.0 Above high normal Baso % [place] ([facility]) immature granulocyte % 1.1 % 0-3.0 Immature Gran ulocyte % [place] ([facility]) mono # 0.6 10 0.0-0.8 [place] # [place] ([facility]) lymph # 2.1 10 1.5-5.0 Lymph # [place] ([facility]) eos # 0.6 10 0.0-0.5 Above high normal Eos # [place] ([facility]) baso # 0.1 10 0.0-0.2 Baso # [place] ([facility]) ID Date Data Source [id number] 11/05/2020 10:08:00 AM EST [place] ([facility]) Name Value Range Interpretation Code Description Data Whit rce(s) Supporting Document(s) [facility] pathology study [facility] FINAL DIAGNOSIS Biopsy below Z-line: Intestinal metaplasia, negative for dysplasia. Squamocolumnar junction mucosa with mild chronic inflammation. 11/06/2020 - 112 CLINICAL DIAGNOSIS H/O intestinal metaplasia 11/05/20201403 GROSS DIAGNOSIS Received in formalin labeled "biopsy below Z line" is a 0.8 x 0.2 x 0.2 cm. aggregate of mucosal fragments. All in one. - 11/05/20201403 Signed Wilfredo Mcclendon MD 11/06/2020 1226 ID Date Data Source [id number] 10/31/2020 12:00:00 PM EST [facility] Name Value Range Interpretation Code Description Data Whit rce(s) Supporting Document(s) SARS coronavirus 2 [facility] Not Detected [facility] This lab was ordered by [facility] and reported by [facility]. ID Date Data Source [id number] 10/11/2020 12:00:00 AM EST [facility] Name Value Range Interpretation Code Description Data Whit rce(s) Supporting Document(s) SARS coronavirus 2 Ag Negative [facility] This lab was ordered by [facility] [place] and reported by [facility] [place]. ID Date Data Source [id number] 09/24/2020 02:54:00 PM EST [facility] ([facility]) Name Value Range Interpretation Code Description Data Whit rce(s) Supporting Document(s) Testosterone [Mass/volume] in Serum or Plasma 15 ng/dL [id number] [facility] ([facility]) NORMAL RANGES ARE FOR ADULT FEMALES (OVE R 15 YRS) AND MALES (OVER 19 YRS). FOR PEDIATRIC RANGES PLE ASE CONSULT LITERATURE. Follitropin [Units/volume] in Serum or Plasma 0.8 mIU/mL 1.4-18.1 [facility] ([facility]) Lutropin [Moles/volume] in Serum or Plasma 0.1 mIU/mL 1.5-9.3 [facility] ([facility]) ID Date Data Source [id number] 09/24/2020 02:54:00 PM EST [facility] ([facility]) Name Value Range Interpretation Code Description Data Whit rce(s) Supporting Document(s) Glucose, Fasting 246 mg/dL 70-100 [facility] ([facility]) Blood Urea Nitrogen 17 mg/dL 7-18 [facility] (No [facility]) Creatinine For GFR 0.96 mg/dL 0.70-1.30 [facility] ([facility]) Glomerular Filtration Rate Laboratory test result [facility] ([facility]) <content>Units are mL/min/1.73 m2</content>
<content></content>
<content>Chronic Kidney Disease Staging per NKF:</content>
<content></content>
<content>Stage I & II GFR >=60 Normal to Mildly Decreased</content>
<content>Stage III GFR 30- 59 Moderately Decreased</content>
<content>Stage IV GFR 15-29 Severely Decreased</content>
<content>Stage V GFR <15 Very Little GFR Left</content>
<content>ESRD GFR <15 on WAGE AND SALARY ADMINISTRATOR</content>
<content></content> Sodium Level 137 meq/L 136-145 [facility] ([facility]) Chloride Level 104 meq/L 98-107 [facility] ([facility]) Potassium Serum 4.3 meq/L 3.5-5.1 [facility] ([facility]) Carbon Dioxide Level 28 meq/L 21-32 [facility] ([facility]) Anion Gap 5 meq/L 8-16 [facility] ([facility]) Calcium Level 8.6 mg/dL 8.5-10.1 [facility] ([facility]) ID Date Data Source [id number] 09/24/2020 02:54:00 PM EST [facility] ([facility]) Name Value Range Interpretation Code Description Data Whit rce(s) Supporting Document(s) Laboratory test finding (navigational concept) 235 pg/mL 15-65 [facility] ([facility]) Estradiol 83.5 pg/mL 7.6-42.6 [facility] ([facility]) [place] ECLIA methodology Performed at: [facility] [address] [id number] Testing Engineer: Marlys Jin MD, Phone: [phone] Performed at: [facility] [address] [id number] Testing Engineer: Gladis Paul MD, Phone: [phone] ID Date Data Source [id number] 09/24/2020 02:54:00 PM EST [facility] ([facility]) Name Value Range Interpretation Code Description Data Whit rce(s) Supporting Document(s) Thyrotropin [Units/volume] in Serum or Plasma 1.420 uIU/ML 0.358-3.74 0 [facility] ([facility]) Thyroxine (T4) free [Mass/volume] in Serum or Plasma 1.26 ng/dL 0.76- 1.46 [facility] ([facility]) ID Date Data Source [id number] 09/20/2020 02:59:00 PM EST [facility] ([facility]) Name Value Range Interpretation Code Description Data Whit rce(s) Supporting Document(s) Hemoglobin A1c/Hemoglobin.total in Blood 8.3 [facility] ([facility]) Glucose [Mass/volume] in Serum or Plasma 168 [facility] ([facility]) Procedure Social History Code Duration Value Status Description Data Source(s ) Smoking 07/22/2021 12:00:00 AM EDT Patient is a former smoker completed Patient is a former smoker [facility] ([facility]) Smoking 05/29/2021 12:00:00 AM EDT Patient is a former smoker completed Patient is a former smoker [facility] ([facility], ) Smoking 04/15/2021 12:00:00 AM EDT Never smoker completed Never s moker [facility] ([facility]) Alcohol intake 03/06/2021 12:00:00 AM EDT Current non-d lauren of alcohol (finding) completed Current non-drinker of alcohol (finding) [facility] Tobacco use and exposure 03/06/2021 12:00:00 AM EDT Never used co mpleted Never used [facility] Cigarette pack-years 03/06/2021 12:00:00 AM EDT UNK completed [facility] Cigarettes smoked current (pack per day) - Reported 03/06/20 12:00:00 AM EDT UNK completed [facility] Smoking 03/06/2021 12:00:00 AM EDT Former smoker completed Former smoker [facility] Alcohol intake 02/19/2021 12:00:00 AM EDT Current non-d lauren of alcohol (finding) completed Current non-drinker of alcohol (finding) [facility] Alcohol intake 01/28/2021 12:00:00 AM EDT Current non-d lauren of alcohol (finding) completed Current non-drinker of alcohol (finding) [facility] Smoking 10/11/2020 12:00:00 AM EST Patient is a former smoker completed Patient is a former smoker [facility] ([facility]) Alcohol intake 10/10/2020 12:00:00 AM EST Current non-d lauren of alcohol (finding) completed Current non-drinker of alcohol (finding) [facility] Vital Signs ID Date Data Source UNK Name Value Range Interpretation Code Description Data Source(s) Oxygen saturation in Arterial blood by Pulse oximetry 97 % 97 % [facility] ([facility] ) Body weight 205.25 [lb_av] 205.25 [lb_av] MEDEN T ([facility] ) Body mass index (BMI) [Ratio] 29.4 kg/m2 29.4 k g/m2 [facility] ([facility] ) Systolic blood pressure 118 mm[Hg] 118 mm[Hg] M EDENT ([facility] ) Diastolic blood pressure 64 mm[Hg] 64 mm[Hg] [facility] ([facility]) Heart rate 91 /min 91 /min [facility] ([facility] ) Body height 70 [in_i] 70 [in_i] [facility] ([facility] 5'10" Diastolic blood pressure 69 mm[Hg] 69 mm[Hg] [place] ([facility]) Body height 72 [in_i] 72 [in_i] [place] ([facility]) Body mass index (BMI) [Ratio] 30 kg/m2 30 kg/ m2 [place] ([facility]) Systolic blood pressure 109 mm[Hg] 109 mm[Hg] A [place] ([facility]) Body weight 3538 [oz_av] 3538 [oz_av] [place] ([facility]) Diastolic blood pressure 69 mm[Hg] 69 mm[Hg] [place] ([facility]) Body height 72 [in_i] 72 [in_i] [place] ([facility]) Body mass index (BMI) [Ratio] 30 kg/m2 30 kg/ m2 [place] ([facility]) Systolic blood pressure 109 mm[Hg] 109 mm[Hg] A [place] ([facility]) Body weight 3538 [oz_av] 3538 [oz_av] [place] ([facility]) Systolic blood pressure 110 mm[Hg] 110 mm[Hg] M EDSUNI ([facility], ) Diastolic blood pressure 60 mm[Hg] 60 mm[Hg] [facility] ([facility], ) Heart rate 65 /min 65 /min [facility] ([facility], ) Oxygen saturation in Arterial blood by Pulse oximetry 97 % 97 % [facility] Body height 71 [in_i] 71 [in_i] [facility] ([facility], ) 5'11" Body weight 223.00 [lb_av] 223.00 [lb_av] MED[place] T ([facility], ) Body mass index (BMI) [Ratio] 31.1 kg/m2 31.1 k g/m2 [facility] ([facility], ) [place] body weight 172 [lb_av] 172 [lb_av] [facility] Body weight 101.153 kg 101.153 kg [facility] ([facility]) Body surface area Derived from formula 2.21 m2 2.21 m2 [facility] ([facility]) Body weight 220.00 [lb_av] 220.00 [lb_av] MEDEN T ([facility]) Systolic blood pressure 100 mm[Hg] 100 mm[Hg] [facility] ([facility]) Diastolic blood pressure 70 mm[Hg] 70 mm[Hg] [facility] ([facility]) Heart rate 70 /min 70 /min [facility] ([facility]) Oxygen saturation in Arterial blood by Pulse oximetry 95 % 95 % [facility] ([facility]) Room Air Body weight 99.792 kg 99.792 kg [facility] ([facility]) Heart rate 79 /min 79 /min [facility] ([facility]) Oxygen saturation in Arterial blood by Pulse oximetry 97 % 97 % [facility] ([facility]) Room Air Body weight 221.00 [lb_av] 221.00 [lb_av] MED[place] T ([facility]) Body weight 100.246 kg 100.246 kg [facility] ([facility]) Systolic blood pressure 108 mm[Hg] 108 mm[Hg] [facility] ([facility]) Diastolic blood pressure 70 mm[Hg] 70 mm[Hg] [facility] ([facility]) Heart rate 69 /min 69 /min [facility] ([facility]) Diastolic blood pressure 75 mm[Hg] 75 mm[Hg] [facility] ([facility]) Systolic blood pressure 115 mm[Hg] 115 [facility]Hg] [facility] Body temperature 97.7 [degF] 97.7 [degF] [facility] Body height 70 [in_i] 70 [in_i] [facility] ([facility]) 5'10" Body mass index (BMI) [Ratio] 31.6 kg/m2 31.6 k g/m2 [facility] ([facility]) Body weight 220.00 [lb_av] 220.00 [lb_av] MEDEN T ([facility]) Oxygen saturation in Arterial blood by Pulse oximetry 92 % 92 % [facility] ([facility]) Diastolic blood pressure 78 mm[Hg] 78 mm[Hg] [place] ([facility]) Body height 72 [in_i] 72 [in_i] [place] ([facility]) Body mass index (BMI) [Ratio] 30.1 kg/m2 30.1 k g/m2 [place] ([facility]) Systolic blood pressure 128 mm[Hg] 128 mm[Hg] A [facility] ([facility]) Body weight 3556 [oz_av] 3556 [oz_av] [place] ([facility]) Diastolic blood pressure 78 mm[Hg] 78 mm[Hg] [place] ([facility]) Body height 72 [in_i] 72 [in_i] [place] ([facility]) Body mass index (BMI) [Ratio] 30.1 kg/m2 30.1 k g/m2 [place] ([facility]) Systolic blood pressure 128 mm[Hg] 128 mm[Hg] A [facility] ([facility]) Body weight 3556 [oz_av] 3556 [oz_av] [place] ([facility]) Body height 72 [in_i] 72 [in_i] [place] ([facility]) Body mass index (BMI) [Ratio] 30.1 kg/m2 30.1 k g/m2 [place] ([facility]) Systolic blood pressure 128 mm[Hg] 128 mm[Hg] A [place] ([facility]) Body weight 3556 [oz_av] 3556 [oz_av] [place] ([facility]) Diastolic blood pressure 78 mm[Hg] 78 mm[Hg] [place] ([facility]) Diastolic blood pressure 66 mm[Hg] 66 mm[Hg] [place] ([facility]) Body height 72 [in_i] 72 [in_i] [place] ([facility]) Body mass index (BMI) [Ratio] 30.4 kg/m2 30.4 k g/m2 [place] ([facility]) Systolic blood pressure 101 mm[Hg] 101 mm[Hg] A [facility] ([facility]) Body weight 3590.4 [oz_av] 3590.4 [oz_av] ATHEN A ([facility]) Diastolic blood pressure 66 mm[Hg] 66 mm[Hg] [place] ([facility]) Body height 72 [in_i] 72 [in_i] [place] ([facility]) Body mass index (BMI) [Ratio] 30.4 kg/m2 30.4 k g/m2 [place] ([facility]) Systolic blood pressure 101 mm[Hg] 101 mm[Hg] A [facility] ([facility]) Body weight 3590.4 [oz_av] 3590.4 [oz_av] ATHEN A ([facility]) Diastolic blood pressure 66 mm[Hg] 66 mm[Hg] [facility] ([facility]) Body height 72 [in_i] 72 [in_i] [place] ([facility]) Body mass index (BMI) [Ratio] 30.4 kg/m2 30.4 k g/m2 [facility] ([facility]) Systolic blood pressure 101 mm[Hg] 101 mm[Hg] A [facility] ([facility]) Body weight 3590.4 [oz_av] 3590.4 [oz_av] ATHEN A ([facility]) Diastolic blood pressure 66 mm[Hg] 66 mm[Hg] [facility] ([facility]) Body height 72 [in_i] 72 [in_i] [facility] ([facility]) Body mass index (BMI) [Ratio] 30.4 kg/m2 30.4 k g/m2 [facility] ([facility]) Systolic blood pressure 101 mm[Hg] 101 mm[Hg] A [facility] ([facility]) Body weight 3590.4 [oz_av] 3590.4 [oz_av] ATHEN A ([facility]) Diastolic blood pressure 72 mm[Hg] 72 mm[Hg] [facility] ([facility]) Systolic blood pressure 112 mm[Hg] 112 mm[Hg] A [facility] [facility] Body weight 3636 [oz_av] 3636 [oz_av] JOVON ([facility]) Body height 72 [in_i] 72 [in_i] [facility] ([facility]) Body mass index (BMI) [Ratio] 30.8 kg/m2 30.8 k g/m2 [facility] ([facility]) Body weight 3636 [oz_av] 3636 [oz_av] J[facility]ON ([facility]) Diastolic blood pressure 72 mm[Hg] 72 mm[Hg] J[facility] ([facility]) Body height 72 [in_i] 72 [in_i] [facility] ([facility]) Body mass index (BMI) [Ratio] 30.8 kg/m2 30.8 k g/m2 [facility] ([facility]) Systolic blood pressure 112 mm[Hg] 112 mm[Hg] A [facility] ([facility]) Diastolic blood pressure 72 mm[Hg] 72 mm[Hg] J[facility]ON ([facility]) Body height 72 [in_i] 72 [in_i] J[facility] ([facility]) Body mass index (BMI) [Ratio] 30.8 kg/m2 30.8 k g/m2 J[facility] ([facility]) Systolic blood pressure 112 mm[Hg] 112 mm[Hg] A THENA ([facility]) Body weight 3636 [oz_av] 3636 [oz_av] JOVON ([facility]) Diastolic blood pressure 72 mm[Hg] 72 mm[Hg] J[facility] ([facility]) Body height 72 [in_i] 72 [in_i] [facility] ([facility]) Body mass index (BMI) [Ratio] 30.8 kg/m2 30.8 k g/m2 [facility] ([facility]) Systolic blood pressure 112 mm[Hg] 112 mm[Hg] A THENA ([facility]) Body weight 3636 [oz_av] 3636 [oz_av] JOVON ([facility]) Diastolic blood pressure 72 mm[Hg] 72 mm[Hg] J[facility] ([facility]) Body height 72 [in_i] 72 [in_i] [facility] ([facility]) Body mass index (BMI) [Ratio] 30.8 kg/m2 30.8 k g/m2 [facility] ([facility]) Systolic blood pressure 112 mm[Hg] 112 mm[Hg] A [facility] ([facility]) Body weight 3636 [oz_av] 3636 [oz_av] JOVON ([facility]) Body height 72 [in_i] 72 [in_i] [facility] ([facility]) Diastolic blood pressure 80 mm[Hg] 80 mm[Hg] J[facility] ([facility]) Body mass index (BMI) [Ratio] 30.6 kg/m2 30.6 k g/m2 [facility] ([facility]) Systolic blood pressure 132 mm[Hg] 132 mm[Hg] A [facility] ([facility]) Body weight 3606.4 [oz_av] 3606.4 [oz_av] ATHEN A ([facility]) Diastolic blood pressure 80 mm[Hg] 80 mm[Hg] J[facility]ON ([facility]) Body height 72 [in_i] 72 [in_i] [facility] ([facility]) Body mass index (BMI) [Ratio] 30.6 kg/m2 30.6 k g/m2 [facility] ([facility]) Systolic blood pressure 132 mm[Hg] 132 mm[Hg] A [place] ([facility]) Body weight 3606.4 [oz_av] 3606.4 [oz_av] ATHEN A ([facility]) Body height 72 [in_i] 72 [in_i] [facility]OVON ([facility]) Body mass index (BMI) [Ratio] 30.6 kg/m2 30.6 k g/m2 [facility] ([facility]) Systolic blood pressure 132 mm[Hg] 132 mm[Hg] A [facility] ([facility]) Body weight 3606.4 [oz_av] 3606.4 [oz_av] ATHEN A ([facility]) Diastolic blood pressure 80 mm[Hg] 80 mm[Hg] JOVON ([facility]) Diastolic blood pressure 80 mm[Hg] 80 mm[Hg] [facility] ([facility]) Body height 72 [in_i] 72 [in_i] [facility] ([facility]) Body mass index (BMI) [Ratio] 30.6 kg/m2 30.6 k g/m2 [facility] ([facility]) Systolic blood pressure 132 mm[Hg] 132 mm[Hg] A [place] ([facility]) Body weight 3606.4 [oz_av] 3606.4 [oz_av] ATHEN A ([facility]) Diastolic blood pressure 80 mm[Hg] 80 mm[Hg] J[facility]ON ([facility]) Body height 72 [in_i] 72 [in_i] [facility] ([facility]) Body mass index (BMI) [Ratio] 30.6 kg/m2 30.6 k g/m2 [facility] ([facility]) Systolic blood pressure 132 mm[Hg] 132 mm[Hg] A [facility] ([facility]) Body weight 3606.4 [oz_av] 3606.4 [oz_av] ATHEN A ([facility]) Diastolic blood pressure 80 mm[Hg] 80 mm[Hg] JOV[facility] ([facility]) Body height 72 [in_i] 72 [in_i] [facility] ([facility]) Body mass index (BMI) [Ratio] 30.6 kg/m2 30.6 k g/m2 [facility] ([facility]) Systolic blood pressure 132 mm[Hg] 132 mm[Hg] A THENA ([facility]) Body weight 3606.4 [oz_av] 3606.4 [oz_av] ATHEN A ([facility]) Oxygen saturation in Arterial blood by Pulse oximetry 93 % 93 % [facility] ([facility] ) Body mass index (BMI) [Ratio] 31.9 kg/m2 31.9 k g/m2 [facility] ([facility] ) Heart rate 72 /min 72 /min [facility] ([facility] ) Body height 70 [in_i] 70 [in_i] [facility] ([facility] ) 5'10" Body weight 222.25 [lb_av] 222.25 [lb_av] MEDEN T ([facility] ) Systolic blood pressure 112 mm[Hg] 112 mm[Hg] M EDENT ([facility] ) Diastolic blood pressure 68 mm[Hg] 68 mm[Hg] [facility] ([facility] ) Body temperature 97.3 [degF] 97.3 [degF] [facility] ([facility] ) Diastolic blood pressure 68 mm[Hg] 68 mm[Hg] JOVON ([facility]) Body height 72 [in_i] 72 [in_i] [facility] ([facility]) Body mass index (BMI) [Ratio] 30.5 kg/m2 30.5 k g/m2 [facility] ([facility]) Systolic blood pressure 100 mm[Hg] 100 mm[Hg] A THENA ([facility]) Body weight 3593.6 [oz_av] 3593.6 [oz_av] ATHEN A ([facility]) Diastolic blood pressure 68 mm[Hg] 68 mm[Hg] J[facility] ([facility]) Body height 72 [in_i] 72 [in_i] [facility] ([facility]) Body mass index (BMI) [Ratio] 30.5 kg/m2 30.5 k g/m2 [facility] ([facility]) Systolic blood pressure 100 mm[Hg] 100 mm[Hg] A [facility] ([facility]) Body weight 3593.6 [oz_av] 3593.6 [oz_av] ATHEN A ([facility]) Diastolic blood pressure 68 mm[Hg] 68 mm[Hg] JOVON ([facility]) Body height 72 [in_i] 72 [in_i] JOVON ([facility]) Body mass index (BMI) [Ratio] 30.5 kg/m2 30.5 k g/m2 [facility] ([facility]) Systolic blood pressure 100 mm[Hg] 100 mm[Hg] A THENA ([facility]) Body weight 3593.6 [oz_av] 3593.6 [oz_av] ATHEN A ([facility]) Diastolic blood pressure 68 mm[Hg] 68 mm[Hg] JOVON ([facility]) Body height 72 [in_i] 72 [in_i] JOVON ([facility]) Body mass index (BMI) [Ratio] 30.5 kg/m2 30.5 k g/m2 J[facility] ([facility]) Systolic blood pressure 100 mm[Hg] 100 mm[Hg] A [facility] ([facility]) Body weight 3593.6 [oz_av] 3593.6 [oz_av] ATHEN A ([facility]) Diastolic blood pressure 68 mm[Hg] 68 mm[Hg] JOVON ([facility]) Body height 72 [in_i] 72 [in_i] JOVON ([facility]) Body mass index (BMI) [Ratio] 30.5 kg/m2 30.5 k g/m2 [facility] ([facility]) Systolic blood pressure 100 mm[Hg] 100 mm[Hg] A [facility]) Body weight 3593.6 [oz_av] 3593.6 [oz_av] ATHEN A ([facility]) Diastolic blood pressure 68 mm[Hg] 68 mm[Hg] JOVON ([facility]) Body height 72 [in_i] 72 [in_i] JOVON ([facility]) Body mass index (BMI) [Ratio] 30.5 kg/m2 30.5 k g/m2 J[facility] ([facility]) Systolic blood pressure 100 mm[Hg] 100 mm[Hg] A [facility]) Body weight 3593.6 [oz_av] 3593.6 [oz_av] ATHEN A ([facility]) Diastolic blood pressure 68 mm[Hg] 68 mm[Hg] JOVON ([facility]) Body height 72 [in_i] 72 [in_i] JOVON ([facility]) Body mass index (BMI) [Ratio] 30.5 kg/m2 30.5 k g/m2 J[facility] ([facility]) Systolic blood pressure 100 mm[Hg] 100 mm[Hg] A [facility] ([facility]) Body weight 3593.6 [oz_av] 3593.6 [oz_av] ATHEN A ([facility]) Body mass index (BMI) [Ratio] 29.3 kg/m2 29.3 k g/m2 [facility] ([facility] Body weight 216.00 [lb_av] 216.00 [lb_av] MEDEN T ([facility] Systolic blood pressure 120 mm[Hg] 120 mm[Hg] M EDENT ([facility] Diastolic blood pressure 60 mm[Hg] 60 mm[Hg] MED[facility] ([facility] Heart rate 58 /min 58 /min [facility] ([facility] Body height 72 [in_i] 72 [in_i] MEDENT ([facility] 6'0" Body height 71 [in_i] 71 [in_i] [facility] ([facility] 5'11" Body weight 216.00 [lb_av] 216.00 [lb_av] [...] 97.978 kg 97.978 kg [facility] ([facility]) Body temperature 97.0 [degF] 97.0 [degF] [facility] ([facility]) Body height 71 [in_i] 71 [in_i] MEDENT ([facility]) 5'11" Body mass index (BMI) [Ratio] 29.4 kg/m2 29.4 k g/m2 MEDENT ([facility]) Systolic blood pressure 100 mm[Hg] 100 mm[Hg] M EDENT ([facility]) Diastolic blood pressure 64 mm[Hg] 64 mm[Hg] MEDENT ([facility]) Heart rate 73 /min 73 /min MEDENT ([facility]) Respiratory rate 18 /min 18 /min MED[facility] ( [facility]) Oxygen saturation in Arterial blood by Pulse oximetry 100 % 100 % MEDENT ([facility]) Body temperature 97.9 [degF] 97.9 [degF] MEDENT ([facility]) Body weight 211.00 [lb_av] 211.00 [lb_av] MEDEN T ([facility]) Systolic blood pressure 128 mm[Hg] 128 mm[Hg] M EDENT ([facility] ) Diastolic blood pressure 62 mm[Hg] 62 mm[Hg] MED[facility] ([facility] ) Heart rate 70 /min 70 /min [facility] ([facility] ) Body temperature 97.0 [degF] 97.0 [degF] [facility] ([facility] ) Body height 70 [in_i] 70 [in_i] [facility] ([facility] ) 5'10" Body weight 211.00 [lb_av] 211.00 [lb_av] MEDEN T ([facility] ) Body mass index (BMI) [Ratio] 30.3 kg/m2 30.3 k g/m2 [facility] ([facility] ) Oxygen saturation in Arterial blood by Pulse oximetry 99 % 99 % [facility] ([facility] ) Systolic blood pressure 140 mm[Hg] 140 mm[Hg] M EDENT ([facility] ) Body weight 206.31 [lb_av] 206.31 [lb_av] MEDEN T ([facility] ) Body mass index (BMI) [Ratio] 29.6 kg/m2 29.6 k g/m2 [facility] ([facility] ) Oxygen saturation in Arterial blood by Pulse oximetry 99 % 99 % [facility] ([facility] ) Diastolic blood pressure 64 mm[Hg] 64 mm[Hg] [facility] ([facility] ) Heart rate 73 /min 73 /min [facility] ([facility] ) Body temperature 96.8 [degF] 96.8 [degF] [facility] ([facility] ) Body height 70 [in_i] 70 [in_i] MEDENT ([facility] ) 5'10" Diastolic blood pressure 80 mm[Hg] 80 mm[Hg] JOVON ([facility]) Body height 72 [in_i] 72 [in_i] JOVON ([facility]) Body mass index (BMI) [Ratio] 28.2 kg/m2 28.2 k g/m2 JOVON ([facility]) Systolic blood pressure 132 mm[Hg] 132 mm[Hg] A THENA ([facility]) Body weight 3332 [oz_av] 3332 [oz_av] JOVON ([facility]) Diastolic blood pressure 80 mm[Hg] 80 mm[Hg] JOVON ([facility]) Body height 72 [in_i] 72 [in_i] JOVON ([facility]) Body mass index (BMI) [Ratio] 28.2 kg/m2 28.2 k g/m2 JOVON ([facility]) Systolic blood pressure 132 mm[Hg] 132 mm[Hg] A THENA ([facility]) Body weight 3332 [oz_av] 3332 [oz_av] JOVON ([facility]) Diastolic blood pressure 80 mm[Hg] 80 mm[Hg] JOVON ([facility]) Body height 72 [in_i] 72 [in_i] JOVON ([facility]) Body mass index (BMI) [Ratio] 28.2 kg/m2 28.2 k g/m2 JOVON ([facility]) Systolic blood pressure 132 mm[Hg] 132 mm[Hg] A THENA ([facility]) Body weight 3332 [oz_av] 3332 [oz_av] JOVON ([facility]) Diastolic blood pressure 80 mm[Hg] 80 mm[Hg] JOVON ([facility]) Body height 72 [in_i] 72 [in_i] JOVON ([facility]) Body mass index (BMI) [Ratio] 28.2 kg/m2 28.2 k g/m2 JOVON ([facility]) Systolic blood pressure 132 mm[Hg] 132 mm[Hg] A THENA ([facility]) Body weight 3332 [oz_av] 3332 [oz_av] JOVON ([facility]) Diastolic blood pressure 80 mm[Hg] 80 mm[Hg] JOVON ([facility]) Body height 72 [in_i] 72 [in_i] JOVON ([facility]) Body mass index (BMI) [Ratio] 28.2 kg/m2 28.2 k g/m2 JOVON ([facility]) Systolic blood pressure 132 mm[Hg] 132 mm[Hg] A THENA ([facility]) Body weight 3332 [oz_av] 3332 [oz_av] JOVON ([facility]) Diastolic blood pressure 80 mm[Hg] 80 mm[Hg] JOVON ([facility]) Body height 72 [in_i] 72 [in_i] JOVON ([facility]) Body mass index (BMI) [Ratio] 28.2 kg/m2 28.2 k g/m2 JOVON ([facility]) Systolic blood pressure 132 mm[Hg] 132 mm[Hg] A THENA ([facility]) Body weight 3332 [oz_av] 3332 [oz_av] JOVON ([facility]) Diastolic blood pressure 80 mm[Hg] 80 mm[Hg] JOVON ([facility]) Body height 72 [in_i] 72 [in_i] JOVON ([facility]) Body mass index (BMI) [Ratio] 28.2 kg/m2 28.2 k g/m2 JOVON ([facility]) Systolic blood pressure 132 mm[Hg] 132 mm[Hg] A THENA ([facility]) Body weight 3332 [oz_av] 3332 [oz_av] JOVON ([facility]) Diastolic blood pressure 80 mm[Hg] 80 mm[Hg] JOVON ([facility]) Body height 72 [in_i] 72 [in_i] JOVON ([facility]) Body mass index (BMI) [Ratio] 28.2 kg/m2 28.2 k g/m2 JOVON ([facility]) Systolic blood pressure 132 mm[Hg] 132 mm[Hg] A THENA ([facility]) Body weight 3332 [oz_av] 3332 [oz_av] JOVON ([facility]) Diastolic blood pressure 80 mm[Hg] 80 mm[Hg] JOVON ([facility]) Body height 72 [in_i] 72 [in_i] JOVON ([facility]) Body mass index (BMI) [Ratio] 28.2 kg/m2 28.2 k g/m2 JOVON ([facility]) Systolic blood pressure 132 mm[Hg] 132 mm[Hg] A [facility] ([facility]) Body weight 3332 [oz_av] 3332 [oz_av] JOVON ([facility]) Diastolic blood pressure 80 mm[Hg] 80 mm[Hg] JOVON ([facility]) Body height 72 [in_i] 72 [in_i] JOVON ([facility]) Body mass index (BMI) [Ratio] 28.2 kg/m2 28.2 k g/m2 JOVON ([facility]) Systolic blood pressure 132 mm[Hg] 132 mm[Hg] A [facility] ([facility]) Body weight 3332 [oz_av] 3332 [oz_av] JOVON ([facility]) ID Date Data Source [id number] 05/10/2021 03:54:54 PM EDT [facility] Name Value Range Interpretation Code Description Data Source(s) PREFERRED NAME [facility] ID Date Data Source [id number] 02/26/2021 10:26:56 AM EDT [facility] Name Value Range Interpretation Code Description Data Source(s) WEIGHT RECORDED 225 lb 225 lb [facility] Body height Measured 70 in 70 in [facility] PREFERRED NAME [facility] ID Date Data Source [id number] 02/13/2021 01:28:52 PM EDT [facility] Name Value Range Interpretation Code Description Data Source(s) PREFERRED NAME [facility] PREFERRED NAME [facility] ID Date Data Source [id number] 02/05/2021 09:37:07 AM EDT [facility] Name Value Range Interpretation Code Description Data Source(s) WEIGHT RECORDED 227 lb 227 lb [facility] Body height Measured 70 in 70 in [facility] PREFERRED NAME [facility] PREFERRED NAME [facility] ID Date Data Source [id number] 12/12/2020 10:43:24 AM EDT [facility] Name Value Range Interpretation Code Description Data Source(s) PREFERRED NAME [facility] ID Date Data Source [id number] 11/22/2020 03:07:27 PM EST [facility] Name Value Range Interpretation Code Description Data Source(s) PREFERRED NAME [facility] ID Date Data Source [id number] 12/07/2020 10:28:23 AM EDT [facility] Name Value Range Interpretation Code Description Data Source(s) [facility] Patient Treatment Plan of Care Planned Activity Planned Date Details Description Data Source (s) olodaterol 0.0025 MG/ACTUAT / tiotropium 0.0025 MG/ACT UAT Metered Dose Inhaler 07/08/2021 12:00:00 AM EDT [facility]) Prednisone 10 MG Oral Tablet 07/07/2021 12:00:00 AM EDT [facility]) Levofloxacin 750 MG Oral Tablet [Levaquin] 07/07/2021 12:00:00 AM E DT [place] ([facility]) Estradiol 2 MG Oral Tablet 05/20/2021 12:00:00 AM EDT [facility] ([facility]) tramadol hydrochloride 50 MG Oral Tablet 02/20/2021 12:00:00 AM [facility] Docusate Sodium 100 MG Oral Capsule 02/20/2021 12:00:00 AM [facility] Acetaminophen 325 MG Oral Tablet 02/20/2021 12:00:00 AM [facility] tramadol hydrochloride 50 MG Oral Tablet 02/19/2021 01:06:10 PM [facility] ondansetron (ZOFRAN) injection 4 mg 02/19/2021 01:02:48 PM [facility] albuterol (PROVENTIL HFA) inhaler 2 puff 02/19/2021 12:55:42 PM [facility] Albuterol Sulfate HFA 108 (90 Base) MCG/ ACT Inhalation Aerosol Solution (PROVENTIL HFA) 01/08/2021 12:00:00 AM EDT [facility] Estradiol 2 MG Oral Tablet 11/14/2020 12:00:00 AM EST [facility] ([facility]) Estradiol 2 MG Oral Tablet 10/12/2020 12:00:00 AM EST [facility] ([facility]) Estradiol 2 MG Oral Tablet 07/13/2020 12:00:00 AM EDT [facility] ([facility]) Estradiol 2 MG Oral Tablet 07/13/2020 12:00:00 AM EDT [facility] ([facility]) Progesterone 100 MG Oral Capsule [Prometrium] 05/21/2020 12:00:00 A M EDT [facility] ([facility]) Finasteride 5 MG Oral Tablet 04/23/2020 12:00:00 AM EDT [facility] ([facility]) tramadol hydrochloride 50 MG Oral Tablet [facility] ([facility]) Progesterone 100 MG Oral Capsule [facility] ([facility]) Prednisone 20 MG Oral Tablet [place] ([facility]) OneTouch Ultra Blue Test Strip USE DIRECTED FOUR TIMES A DAY [place] ([facility]) Metoprolol Tartrate 25 MG Oral Tablet [place] ([facility]) 1 ML Leuprolide Acetate 3.75 MG/ML Prefilled Syringe [Lupron] [facility]) Lisinopril 2.5 MG Oral Tablet [place] ([facility]) liothyronine sodium 0.025 MG Oral Tablet [facility] ([facility]) Levothyroxine Sodium 0.025 MG Oral Tablet [Levo-T] [place] ([facility]) Finasteride 5 MG Oral Tablet [facility] ([facility]) doxycycline hyclate 100 MG Oral Capsule [facility] ([facility]) Docusate Sodium 100 MG Oral Capsule [facility] ([facility]) Clarithromycin 500 MG Oral Tablet [facility] ([facility]) Azithromycin 250 MG Oral Tablet [facility] ([facility]) ammonium lactate 120 MG/ML Topical Cream [facility] ([facility]) tramadol hydrochloride 50 MG Oral Tablet [facility] ([facility]) olodaterol 0.0025 MG/ACTUAT / tiotropium 0.0025 MG/ACT UAT Metered Dose Inhaler [facility] ([facility]) Progesterone 100 MG Oral Capsule [facility] ([facility]) Prednisone 20 MG Oral Tablet [facility] ([facility]) OneTouch Ultra Blue Test Strip USE DIRECTED FOUR TIMES A DAY [facility] ([facility]) Metoprolol Tartrate 25 MG Oral Tablet [facility] ([facility]) 1 ML Leuprolide Acetate 3.75 MG/ML Prefilled Syringe [Lupron] [facility] ([facility]) liothyronine sodium 0.025 MG Oral Tablet [facility] ([facility]) Levothyroxine Sodium 0.025 MG Oral Tablet [Levo-T] [facility] ([facility]) Finasteride 5 MG Oral Tablet [facility] ([facility]) doxycycline hyclate 100 MG Oral Capsule [facility] ([facility]) Docusate Sodium 100 MG Oral Capsule [facility] ([facility]) Clarithromycin 500 MG Oral Tablet [facility] ([facility]) Azithromycin 250 MG Oral Tablet [facility] ([facility]) ammonium lactate 120 MG/ML Topical Cream [facility] ([facility]) tramadol hydrochloride 50 MG Oral Tablet [facility] ([facility]) Progesterone 100 MG Oral Capsule [facility] ([facility]) Prednisone 20 MG Oral Tablet [facility] ([facility]) liothyronine sodium 0.025 MG Oral Tablet [facility] ([facility]) Levothyroxine Sodium 0.025 MG Oral Tablet [Levo-T] [facility] ([facility]) Finasteride 5 MG Oral Tablet [facility] ([facility]) doxycycline hyclate 100 MG Oral Capsule [facility] ([facility]) Docusate Sodium 100 MG Oral Capsule [facility] ([facility]) Clarithromycin 500 MG Oral Tablet [facility] ([facility]) Progesterone 100 MG Oral Capsule [facility] ([facility]) Prednisone 20 MG Oral Tablet [facility] ([facility]) liothyronine sodium 0.025 MG Oral Tablet [facility] ([facility]) Levothyroxine Sodium 0.025 MG Oral Tablet [Levo-T] [facility] ([facility]) Finasteride 5 MG Oral Tablet [facility] ([facility]) doxycycline hyclate 100 MG Oral Capsule [facility] ([facility]) Clarithromycin 500 MG Oral Tablet [facility] ([facility]) Progesterone 100 MG Oral Capsule [facility] ([facility]) Prednisone 20 MG Oral Tablet [facility] ([facility]) liothyronine sodium 0.025 MG Oral Tablet [facility] ([facility]) Levothyroxine Sodium 0.025 MG Oral Tablet [Levo-T] [facility] ([facility]) Finasteride 5 MG Oral Tablet [facility]OV[facility] ([facility]) doxycycline hyclate 100 MG Oral Capsule JOVON ([facility]) Clarithromycin 500 MG Oral Tablet [facility] ([facility]) Prednisone 20 MG Oral Tablet [facility] ([facility]) liothyronine sodium 0.025 MG Oral Tablet [facility] ([facility]) Levothyroxine Sodium 0.025 MG Oral Tablet [Levo-T] [facility] ([facility]) Finasteride 5 MG Oral Tablet [facility] ([facility]) doxycycline hyclate 100 MG Oral Capsule [facility]OVON ([facility]) Finasteride 5 MG Oral Tablet [facility] ([facility]) Progesterone 100 MG Oral Capsule [facility] ([facility]) Prednisone 20 MG Oral Tablet [facility]OV[facility] ([facility]) liothyronine sodium 0.025 MG Oral Tablet [facility]OVON ([facility]) Levothyroxine Sodium 0.025 MG Oral Tablet [Levo-T] [facility] ([facility]) Finasteride 5 MG Oral Tablet [facility] ([facility]) doxycycline hyclate 100 MG Oral Capsule [facility]OVON ([facility]) Estradiol 2 MG Oral Tablet N [facility] ([facility])
== END 2021-08-31 15:27 | disposition home or self-care (01) ==
LOC: M ED 11:30
DX: R60.9 Edema, unspecified (principal); T25.121A Burn of first degree of right foot, initial encounter; T25.221A Burn of second degree of right foot, initial encounter; X10.1XXA Contact with hot food, initial encounter; Y92.018 Other place in single-family (private) house as the place of occurrence of the external cause; E10.9 Type 1 diabetes mellitus without complications; J45.909 Unspecified asthma, uncomplicated; I25.10 Atherosclerotic heart disease of native coronary artery without angina pectoris; Z79.899 Other long term (current) drug therapy; Z79.4 Long term (current) use of insulin; Z79.82 Long term (current) use of aspirin; Z88.0 Allergy status to penicillin

== ENCOUNTER → 2022-01-08 | Outpatient (CLI) | payer OTHER ==
[~2022-01-08] MED LIST changes: +BACI500O8; -OMEP-221 PO; +OMEP40CA5 PO
== END ==
LOC: M PLALAB 12:24
PROVIDERS: ATTEND Internal Medicine Endocrinology, Diabetes & Metabolism
DX: E89.0 Postprocedural hypothyroidism (principal); E10.65 Type 1 diabetes mellitus with hyperglycemia

== ENCOUNTER → 2022-01-23 | Outpatient (CLI) | payer OTHER | LOC: M WHC 08:56 | PROVIDERS: ATTEND Internal Medicine Endocrinology, Diabetes & Metabolism | DX: F64.9 Gender identity disorder, unspecified (principal) ==

== ENCOUNTER → 2022-05-13 | Outpatient (REF) | payer OTHER, MEDICAID | LOC: M SFHCDERM 15:54 | PROVIDERS: ATTEND Nurse Practitioner Family | DX: D04.5 Carcinoma in situ of skin of trunk (principal) ==

== ENCOUNTER → 2022-10-21 | Outpatient (CLI) | payer OTHER | LOC: M WHC 07:52 | PROVIDERS: ATTEND Internal Medicine Endocrinology, Diabetes & Metabolism | DX: Z53.9 Procedure and treatment not carried out, unspecified reason (principal) ==

== ENCOUNTER → 2022-11-25 | Outpatient (CLI) | payer OTHER ==
[2022-11-25 08:38] LABS: HEMATOCRIT 41.9 % (42.0-52.0); HEMOGLOBIN 13.7 g/dl (13.5-17.5); MEAN CORPUSCULAR HEMOGLOBIN 29.8 pg (27.0-33.0); MEAN CORPUSCULAR HGB CONC 32.7 g/dl (32.0-36.5); MEAN CORPUSCULAR VOLUME 91.3 fl (80.0-96.0); PLATELET COUNT, AUTOMATED 255 10^3/uL (150-450); RED BLOOD COUNT 4.59 10^6/uL (4.30-6.10)
[2022-11-25 09:02] LABS: CREATININE, URINE 241.7 MG/DL; MAU/CREAT RATIO 1.6 MCG/MG (0.0-30.0)
[2022-11-25 09:06] LABS: THYROID STIMULATING HORMONE 1.602 uIU/ML (0.55-4.78)
[2022-11-25 09:16] LABS: ALBUMIN 3.5 G/DL (3.2-5.2); ALKALINE PHOSPHATASE 61 U/L (46-116); ALT/SGPT 19 U/L (7.0-40); AST/SGOT 13 U/L (<34); BILIRUBIN,TOTAL 0.4 MG/DL (0.3-1.2); BLOOD UREA NITROGEN 15 MG/DL (9-23); CALCIUM LEVEL 8.8 MG/DL (8.5-10.1); CARBON DIOXIDE LEVEL 28 MMOL/L (20-31); CHLORIDE LEVEL 105 MMOL/L (98-107); CHOLESTEROL LEVEL 147 MG/DL (<200); CHOLESTEROL RISK RATIO 2.46 (<5); CREATININE FOR GFR 0.75 MG/DL (0.70-1.30); GLOMERULAR FILTRATION RATE > 60.0 (>56); GLUCOSE, FASTING 163 MG/DL (60-100); HDL CHOLESTEROL 59.6 MG/DL (>40); NON-HDL-C 87 MG/DL; POTASSIUM SERUM 4.7 MMOL/L (3.5-5.1); SODIUM LEVEL 140 MMOL/L (136-145); TOTAL PROTEIN 6.2 G/DL (5.7-8.2); TRIGLYCERIDES LEVEL 72 MG/DL (<150)
== END ==
LOC: M LAB 07:56
PROVIDERS: ATTEND Internal Medicine Endocrinology, Diabetes & Metabolism
DX: E89.0 Postprocedural hypothyroidism (principal)

== ENCOUNTER → 2023-01-28 | Outpatient (CLI) | payer OTHER | LOC: M WHC 07:22 | PROVIDERS: ATTEND Internal Medicine Endocrinology, Diabetes & Metabolism | DX: F64.9 Gender identity disorder, unspecified (principal); R92.8 Other abnormal and inconclusive findings on diagnostic imaging of breast ==

== ENCOUNTER → 2023-02-05 | Outpatient (CLI) | payer OTHER | LOC: M RAD 07:25 | PROVIDERS: ATTEND Internal Medicine Pulmonary Disease | DX: Z12.2 Encounter for screening for malignant neoplasm of respiratory organs (principal); Z87.891 Personal history of nicotine dependence; I70.0 Atherosclerosis of aorta; I25.84 Coronary atherosclerosis due to calcified coronary lesion; J98.4 Other disorders of lung ==

== ENCOUNTER → 2023-03-02 | Outpatient (CLI) | payer OTHER | LOC: M WUC 15:39 | PROVIDERS: ATTEND Internal Medicine Endocrinology, Diabetes & Metabolism | DX: E10.65 Type 1 diabetes mellitus with hyperglycemia (principal); F64.9 Gender identity disorder, unspecified ==

== ENCOUNTER → 2023-05-02 | Outpatient (CLI) | payer OTHER | LOC: M RAD 13:21 | PROVIDERS: ATTEND Student in an Organized Health Care Education/Training Program | DX: M25.742 Osteophyte, left hand (principal) ==

== ENCOUNTER → 2023-06-05 | Outpatient (REF) | payer OTHER ==
[2023-06-05 13:01] LABS: ALBUMIN 3.5 G/DL (3.2-5.2); ALKALINE PHOSPHATASE 79 U/L (46-116); ALT/SGPT 24 U/L (7.0-40); AST/SGOT 8 U/L (<34); BILIRUBIN,TOTAL 0.4 MG/DL (0.3-1.2); BLOOD UREA NITROGEN 15 MG/DL (9-23); CALCIUM LEVEL 9.5 MG/DL (8.5-10.1); CARBON DIOXIDE LEVEL 31 MMOL/L (20-31); CHLORIDE LEVEL 103 MMOL/L (98-107); CHOLESTEROL LEVEL 161 MG/DL (<200); CHOLESTEROL RISK RATIO 2.43 (<5); CREATININE FOR GFR 0.78 MG/DL (0.70-1.30); GLOMERULAR FILTRATION RATE > 60.0 (>56); GLUCOSE, FASTING 169 MG/DL (60-100); HDL CHOLESTEROL 66.1 MG/DL (>40); LDL CHOLESTEROL 80.9 MG/DL (<100); NON-HDL-C 94.9 MG/DL; POTASSIUM SERUM 5.4 MMOL/L (3.5-5.1); SODIUM LEVEL 137 MMOL/L (136-145); TOTAL PROTEIN 6.5 G/DL (5.7-8.2); TRIGLYCERIDES LEVEL 70 MG/DL (<150)
[2023-06-05 13:19] LABS: HEMOGLOBIN A1c 8.6 % (4.0-6.0)
== END ==
LOC: M LAB REF 12:12
PROVIDERS: ATTEND Pediatrics
DX: E10.9 Type 1 diabetes mellitus without complications (principal); Z12.5 Encounter for screening for malignant neoplasm of prostate

== ENCOUNTER → 2023-07-23 | Outpatient (CLI) | payer OTHER | LOC: M SOG 10:14 | PROVIDERS: ATTEND Orthopaedic Surgery Hand Surgery | DX: S52.512A Displaced fracture of left radial styloid process, initial encounter for closed fracture (principal); M25.532 Pain in left wrist; Y92.9 Unspecified place or not applicable; Y93.9 Activity, unspecified ==

== ENCOUNTER 2023-08-13 03:58 | Emergency (ER) | payer OTHER ==
[~2023-08-13] VITALS: Ht 180.3 cm; Wt 108.6 kg
[2023-08-13] MEDS ORDERED: NS 1,000 ML IV ONE (04:05)
[2023-08-13 04:21] LABS: BASO # 0.1 10^3/uL (0.0-0.2); BASO % 1.3 % (0.0-1.0); EOS # 0.5 10^3/uL (0.0-0.5); EOS % 5.6 % (0.0-3.0); HEMATOCRIT 39.3 % (42.0-52.0); HEMOGLOBIN 13.2 g/dl (13.5-17.5); LYMPH # 2.9 10^3/uL (1.5-5.0); LYMPH % 33.9 % (24.0-44.0); MEAN CORPUSCULAR HEMOGLOBIN 30.2 pg (27.0-33.0); MEAN CORPUSCULAR HGB CONC 33.6 g/dl (32.0-36.5); MEAN CORPUSCULAR VOLUME 89.9 fl (80.0-96.0); MONO # 0.8 10^3/uL (0.0-0.8); NEUTROPHILS # 4.3 10^3/uL (1.5-8.5); NEUTROPHILS % 49.3 % (36.0-66.0); PLATELET COUNT, AUTOMATED 231 10^3/uL (150-450); RED BLOOD COUNT 4.37 10^6/uL (4.30-6.10); WHITE BLOOD COUNT 8.7 10^3/uL (4.0-10.0)
[2023-08-13] MEDS ORDERED: ISOVUE-370 76% 100ML VIAL As Ordered ONE (04:40)
[2023-08-13 04:53] LABS: CK-MB VALUE MASS < 1.0 NG/ML (<3.6)
[2023-08-13 04:55] LABS: BLOOD UREA NITROGEN 14 MG/DL (9-23); CALCIUM LEVEL 8.7 MG/DL (8.5-10.1); CARBON DIOXIDE LEVEL 27 MMOL/L (20-31); CHLORIDE LEVEL 108 MMOL/L (98-107); GLOMERULAR FILTRATION RATE > 60.0 (>56); GLUCOSE, FASTING 88 MG/DL (60-100); POTASSIUM SERUM 3.8 MMOL/L (3.5-5.1); SODIUM LEVEL 142 MMOL/L (136-145)
[2023-08-13 04:56] LABS: CPK CREATINE PHOSPHOKINASE 112 U/L (46-171); MB/CK RELATIVE INDEX 0.89 (< OR =4)
[2023-08-13 05:48] LABS: CK-MB VALUE MASS < 1.0 NG/ML (<3.6); CPK CREATINE PHOSPHOKINASE 123 U/L (46-171); MB/CK RELATIVE INDEX 0.81 (< OR =4)
[2023-08-13 09:13] VITALS: BP 119/59; TEMP 100.6; O2SAT 95
== END 2023-08-13 09:31 | disposition home or self-care (01) ==
LOC: M ED 03:58 → EDBD 03:58 → M ED 09:31
DX: R07.89 Other chest pain (principal); E11.9 Type 2 diabetes mellitus without complications; I10 Essential (primary) hypertension; E03.9 Hypothyroidism, unspecified; Z87.891 Personal history of nicotine dependence; Z79.82 Long term (current) use of aspirin; Z79.4 Long term (current) use of insulin; Z79.899 Other long term (current) drug therapy; Z88.0 Allergy status to penicillin
CPT/HCPCS: 71045; 71275; 80047; 80048; 82550; 82553; 83880; 85025; 87486; 87581; 87633; 87798; 93005; 93041; 94760; 96360; 99285; Q9967

== ENCOUNTER 2023-09-11 06:08 | Day surgery (SDC) | payer OTHER ==
[~2023-09-11] VITALS: Ht 180.3 cm; Wt 106.4 kg
[~2023-09-11 06:08] MED LIST changes: +LEVO150T7
[2023-09-11] MEDS ORDERED: ALBU6.7H6 INH (06:52)
[2023-09-11] MEDS ORDERED: SODIUM BICARBONATE 8.4% INJ 50MEQ 50ML VIAL XX ONE (07:10)
[2023-09-11] MEDS ORDERED: LIDOCAINE W/EPINEPHRINE 1% 20ML VIAL XX ONE (07:10)
[2023-09-11] MEDS ORDERED: BACITRACIN OINTMENT 30GM TUBE As Ordered ONE (07:17)
[2023-09-11 08:15] VITALS: BP 134/71; TEMP 97; O2SAT 99
== END 2023-09-11 08:30 | disposition home or self-care (01) ==
LOC: M SDC 06:08
PROVIDERS: ATTEND Orthopaedic Surgery Hand Surgery
DX: M72.0 Palmar fascial fibromatosis [Dupuytren] (principal)

== ENCOUNTER → 2023-12-07 | Outpatient (CLI) | payer OTHER ==
[~2023-12-07] MED LIST changes: +ALBU6.7H6 INH; -ASPI-161 PO; +ASPI-615 PO
[2023-12-07 13:58] LABS: HEMATOCRIT 43.6 % (42.0-52.0); HEMOGLOBIN 14.1 g/dl (13.5-17.5); MEAN CORPUSCULAR HEMOGLOBIN 29.3 pg (27.0-33.0); MEAN CORPUSCULAR HGB CONC 32.3 g/dl (32.0-36.5); MEAN CORPUSCULAR VOLUME 90.6 fl (80.0-96.0); PLATELET COUNT, AUTOMATED 247 10^3/uL (150-450); RED BLOOD COUNT 4.81 10^6/uL (4.30-6.10); WHITE BLOOD COUNT 6.9 10^3/uL (4.0-10.0)
[2023-12-07 14:00] LABS: CREATININE, URINE 84.9 MG/DL; MALB URINE SIEMENS < 3.0 MG/L; MAU/CREAT RATIO 3.5 MCG/MG (0.0-30.0)
[2023-12-07 14:21] LABS: ALBUMIN 3.6 G/DL (3.2-5.2); ALKALINE PHOSPHATASE 85 U/L (46-116); ALT/SGPT 30 U/L (7.0-40); AST/SGOT 15 U/L (<34); BILIRUBIN,TOTAL 0.3 MG/DL (0.3-1.2); BLOOD UREA NITROGEN 18 MG/DL (9-23); CALCIUM LEVEL 9.3 MG/DL (8.5-10.1); CARBON DIOXIDE LEVEL 27 MMOL/L (20-31); CHLORIDE LEVEL 108 MMOL/L (98-107); CHOLESTEROL LEVEL 147 MG/DL (<200); CHOLESTEROL RISK RATIO 2.37 (<5); CREATININE FOR GFR 0.87 MG/DL (0.70-1.30); GLOMERULAR FILTRATION RATE > 60.0 (>56); GLUCOSE, FASTING 146 MG/DL (60-100); LDL CHOLESTEROL 68.8 MG/DL (<100); POTASSIUM SERUM 4.8 MMOL/L (3.5-5.1); SODIUM LEVEL 141 MMOL/L (136-145); TOTAL PROTEIN 6.4 G/DL (5.7-8.2); TRIGLYCERIDES LEVEL 81 MG/DL (<150)
[2023-12-07 14:25] LABS: THYROID STIMULATING HORMONE 2.969 uIU/ML (0.55-4.78)
== END ==
LOC: M PLALAB 09:36
PROVIDERS: ATTEND Internal Medicine Endocrinology, Diabetes & Metabolism
DX: E89.0 Postprocedural hypothyroidism (principal); F64.9 Gender identity disorder, unspecified; E10.65 Type 1 diabetes mellitus with hyperglycemia

== ENCOUNTER → 2024-03-29 | Outpatient (CLI) | payer OTHER | LOC: M WHC 06:48 | PROVIDERS: ATTEND Internal Medicine Endocrinology, Diabetes & Metabolism | DX: F64.9 Gender identity disorder, unspecified (principal) ==

== ENCOUNTER → 2024-08-30 | Outpatient (REF) | payer OTHER, MEDICAID ==
[~2024-08-30] MED LIST changes: -LEVO750T14 PO; +LEVO75TAB PO
[2024-08-30 14:07] LABS: CHOLESTEROL RISK RATIO 2.6 (<5); LDL CHOLESTEROL 80.4 MG/DL (<100); PSA SCREENING 0.05 NG/ML (< 4.00)
== END ==
LOC: M LAB REF 13:02
PROVIDERS: ATTEND Pediatrics
DX: E78.5 Hyperlipidemia, unspecified (principal); Z12.5 Encounter for screening for malignant neoplasm of prostate

== ENCOUNTER → 2024-09-06 | Outpatient (CLI) | payer OTHER | LOC: M RAD 07:27 | PROVIDERS: ATTEND Internal Medicine Pulmonary Disease | DX: Z87.891 Personal history of nicotine dependence (principal) ==

== ENCOUNTER → 2025-06-02 | Outpatient (CLI) | payer OTHER | LOC: M RAD 13:05 | PROVIDERS: ATTEND Pediatrics | DX: E78.5 Hyperlipidemia, unspecified (principal); I65.23 Occlusion and stenosis of bilateral carotid arteries ==